=== PATIENT | female | born 1940 | race Caucasian/White ===

== ENCOUNTER 2019-05-17 22:18 | Emergency (ER) | payer OTHER ==
[~2019-05-17] VITALS: Ht 167.6 cm; Wt 88.5 kg
--- OUTSIDE RECORDS SUMMARY | ~2019-05-17 | XMS | Encounter Summary ---
Demographics + + + | Address | [address] | | | [place] [address] | + + + | Home Phone | | + + + | Preferred Language | Unknown | + + + | Marital Status | | + + + | Yazidi Affiliation | Unknown | + + + | Race | White | + + + | Ethnic Group | Not or | + + + Author + + + | Author | [facility] | + + + | Organization | [facility] | + + + | Address | Unknown | + + + | Phone | Unavailable | + + + Support + + +---------+ + | Name | Relationship | Address | Phone | + + +---------+ + | Alon Santiago | ECON | Unknown | | + + +---------+ + Care Team Providers + +------+ + | Care Hat Maker Name | Role | Phone | + +------+ + | Thee Boss MD | PCP | | + +------+ + Reason for Visit + + + | Reason | Comments | + + + | Medication Question | | + + + Encounter Details +--------+ + + + + | Date | Type | Department | Care Team | Description | +--------+ + + + + | 07/16/ | Telephone | Rheumatology at | Tavia Zuniga | Medication Question | | 2013 | | [facility] [address] | A, MANAGER POOL [address] | | | | | [address] | [address] | | | | | Physician's Francy | [place], [place] | | | | | [place], [place] | [address] | | | | | [address] | [phone] | | | | | [phone] | | | +--------+ + + + + Social History + +-------+ +--------+------+ | Tobacco Use | Types | Packs/Day | Years | Date | | | | | Used | | + +-------+ +--------+------+ | Never Smoker | | | | | + +-------+ +--------+------+ + + +---------+ + | Alcohol Use | Drinks/Week | oz/Week | Comments | + + +---------+ + | Not Asked | | | | + + +---------+ + + + + | Sex Assigned at | Date Recorded | | | | + + + | Not on file | | + + + + + + + | Job Start Date | Occupation | Industry | + + + + | Not on file | Not on file | Not on file | + + + + + + + + | Travel History | Travel Start | Travel End | + + + + + + | No recent travel history available. | + + documented as of this encounter Plan of Treatment Not on filedocumented as of this encounter Visit Diagnoses Not on filedocumented in this encounter"
--- OUTSIDE RECORDS SUMMARY | ~2019-05-17 | XMS | Encounter Summary ---
Demographics + + + | Address | [address] | | | [place] [address] | + + + | Home Phone | | + + + | Preferred Language | Unknown | + + + | Marital Status | | + + + | Holiness Affiliation | Unknown | + + + | Race | White | + + + | Ethnic Group | Not or | + + + Author + + + | Author | [facility] | + + + | Organization | [facility] | + + + | Address | Unknown | + + + | Phone | Unavailable | + + + Support + + +---------+ + | Name | Relationship | Address | Phone | + + +---------+ + | Alon Santiago | ECON | Unknown | | + + +---------+ + Care Team Providers + +------+ + | Care Piggyback Clerk Name | Role | Phone | + +------+ + | Thee Boss MD | PCP | | + +------+ + Encounter Details +--------+ + + + + | Date | Type | Department | Care Team | Description | +--------+ + + + + | 09/17/ | Document-Sc | UNKNOWN DEPARTMENT | Unknown . | | | 2014 | anned | [address] | | | | | | [address] | | | | | | [place], [place] | | | | | | [address] | | | +--------+ + + + [...]
--- OUTSIDE RECORDS SUMMARY | ~2019-05-17 | XMS | Clinical Summary ---
Demographics + + + | Address | [address] | | | [place] [address] | + + + | Home Phone | | + + + | Preferred Language | Unknown | + + + | Marital Status | | + + + | Gnosticism Affiliation | Unknown | + + + | Race | White | + + + | Ethnic Group | Not or | + + + Author + + + | Author | [facility] | + + + | Organization | [facility] | + + + | Address | Unknown | + + + | Phone | Unavailable | + + + Support + + +---------+ + | Name | Relationship | Address | Phone | + + +---------+ + | Alon Santiago | ECON | Unknown | | + + +---------+ + Care Team Providers + +------+ + | Care Qa Engineer Name | Role | Phone | + +------+ + | Nathan Luevano DO | PCP | | + +------+ + Source Comments [facility] Allergies + + + + + + | Active Allergy | Reactions | Severity | Noted | Comments | | | | | Date | | + + + + + + | Adhesive Tape | Rash | | 04/07/20 | | | | | | 13 | | + + + + + + | Valdecoxib | Dizziness | | 20 | | | | | | 13 | | + + + + + + | Diltiazem Hcl | Edema | | 04/07/20 | Ankle swelling | | | | | 13 | | + + + + + + | Citalopram | Nausea | | 04/07/20 | | | Hydrobromide | | | 13 | | + + + + + + | Codeine | Nausea | | 04/07/20 | | | | | | 13 | | + + + + + + | Duloxetine | Unknown | | 09/08/19 | Hot flashes | | | | | 15 | | + + + + + + | Hydromorphone | Nausea, Insomnia | High | 06/14/20 | | | | | | 15 | | + + + + + + | Isosorbide | Headache | | 04/07/20 | | | Mononitrate | | | 13 | | + + + + + + | Escitalopram Oxalate | Nausea | | 04/07/20 | | | | | | 13 | | + + + + + + | Morphine | Headache | High | 11/01/19 | | | | | | 07 | | + + + + + + | Esomeprazole | Nausea | | 04/07/20 | | | Magnesium | | | 13 | | + + + + + + | Oxycodone | Nausea | | 04/07/20 | | | | | | 13 | | + + + + + + | Tramadol | Nausea | | 11/16/19 | | | | | | 16 | | + + + + + + Medications + + + +---------+------+------+-------+ | Medication | Sig | Dispensed | Refills | Star | End | Statu | | | | | | t | Date | s | | | | | | Date | | | + + + +---------+------+------+-------+ | ranitidine | Take 150 mg by mouth | | 0 | | | Activ | | (ZANTAC) 150 mg Oral | as needed. | | | | | e | | tablet | | | | | | | + + + +---------+------+------+-------+ | cholecalciferol, | Take 5,000 Units by | | 0 | | | Activ | | Vitamin D3, 1,000 | mouth once daily in | | | | | e | | unit oral tablet | the evening. | | | | | | + + + +---------+------+------+-------+ | hydroxychloroquine | Take 1 tablet by | 180 | 1 | 04/0 | | Activ | | (PLAQUENIL) 200 mg | mouth two times | tablet | | 6/20 | | e | | oral tablet | daily. | | | 16 | | | + + + +---------+------+------+-------+ | diclofenac 1 % | Apply to affected | | 0 | | | Activ | | topical gel | area once daily. | | | | | e | + + + +---------+------+------+-------+ | | Take 1 tablet by | | 0 | | | Activ | | losartan-hydrochloro | mouth once daily. | | | | | e | | thiazide 100-12.5 mg | | | | | | | | oral tablet | | | | | | | + + + +---------+------+------+-------+ | methotrexate 2.5 | Take 2.5 mg by mouth | | 0 | | | Activ | | mg oral tablet | every seven days. | | | | | e | + + + +---------+------+------+-------+ | mirabegron | Take 50 mg by mouth | | 0 | | | Activ | | (MYRBETRIQ) 50 mg | once daily. | | | | | e | | oral tablet extended | | | | | | | | release 24 hr | | | | | | | + + + +---------+------+------+-------+ | naltrexone 4.5 mg | Take 4.5 mg by mouth | | 0 | | | Activ | | capsule (external | once daily at | | | | | e | | compound)Indications | bedtime. Compounded | | | | | | | : fibromyalgia | medication | | | | | | | | Indications: | | | | | | | | disorder | | | | | | | | characterized by | | | | | | | | stiff, tender & | | | | | | | | painful muscles | | | | | | + + + +---------+------+------+-------+ | trospium 20 mg | Take 20 mg by mouth | | 0 | | | Activ | | oral tablet | two times daily. | | | | | e | + + + +---------+------+------+-------+ | | Take by mouth once | | 0 | | | Activ | | acetaminophen/diphen | daily at bedtime. | | | | | e | | hydramine (TYLENOL | | | | | | | | PM EXTRA STRENGTH | | | | | | | | ORAL) | | | | | | | + + + +---------+------+------+-------+ | fexofenadine 180 | Take 180 mg by mouth | | 0 | | | Activ | | mg oral tablet | once daily at | | | | | e | | | bedtime. | | | | | | + + + +---------+------+------+-------+ | Bifidobacterium | Take by mouth once | | 0 | | | Activ | | infantis (ALIGN | daily in the | | | | | e | | ORAL)Indications: | morning. | | | | | | | probiotic | Indications: | | | | | | | | probiotic | | | | | | + + + +---------+------+------+-------+ | cyanocobalamin | Take 1,000 mcg by | | 0 | | | Activ | | (VITAMIN B-12) 1,000 | mouth once daily in | | | | | e | | mcg oral tablet | the morning. | | | | | | + + + +---------+------+------+-------+ | emollient | Apply to affected | | 0 | | | Activ | | combination no.77 | area. Indications: | | | | | e | | (DERMEND | twice weekly | | | | | | | TOP)Indications: | | | | | | | | twice weekly | | | | | | | + + + +---------+------+------+-------+ | soy isofla/blk | Take by mouth once | | 0 | | | Activ | | cohosh/mag bark | daily. | | | | | e | | (ESTROVEN ORAL) | | | | | | | + + + +---------+------+------+-------+ | folic acid 0.4 mg | Take 400 mcg by | | 0 | | | Activ | | oral tablet | mouth once daily. | | | | | e | + + + +---------+------+------+-------+ | LYSINE ORAL | Take 50 mg by mouth | | 0 | | | Activ | | | once daily in the | | | | | e | | | morning. | | | | | | + + + +---------+------+------+-------+ | magnesium citrate | Take 1 tablet by | | 0 | | | Activ | | 100 mg oral tablet | mouth once daily in | | | | | e | | | the morning. | | | | | | + + + +---------+------+------+-------+ | miconazole | Apply to affected | | 0 | | | Activ | | (ZEASORB AF) 2 % | area two times | | | | | e | | topical powder | daily. | | | | | | + + + +---------+------+------+-------+ | MEDICATION | Indications: | | 0 | | | Activ | | HELPIndications: | theraworx foam | | | | | e | | theraworx foam | spray- leg cramps | | | | | | | spray- leg cramps | | | | | | | + + + +---------+------+------+-------+ Active Problems + + + | Problem | Noted Date | + + + | Cervical spondylosis with radiculopathy | 03/11/2019 | + + + | DDD (degenerative disc disease), cervical | 03/11/2019 | + + + | Foraminal stenosis of cervical region | 03/11/2019 | + + + | Rheumatoid arthritis | 07/09/2013 | + + + + + | Overview: ICD10 | + + + + + | Fibromyalgia | 04/07/2013 | + + + Encounters +--------+ + + + + | Date | Type | Specialty | Care Team | Description | +--------+ + + + + | 04/23/ | Document-Sc | Non [facility] EP[facility] | Aristides Longo, | | | 2018 | anned | Department | MD | | +--------+ + + + + | 04/18/ | MyChart | Neurological Surgery | Agusto Pereira MD | RE: Letter sent to | 2018 | Encounter | | | Dr. Pereira's office | | | | | | recently | +--------+ + + + + | 04/09/ | [facility] | Neurological Surgery | Agusto Pereira MD | Authorization of | | 2018 | Encounter | | | Services notice from | | | | | | [employer] 03/21/19 | +--------+ + + + + | 04/09/ | [facility] | Neurological Surgery | Agusto Pereira MD | Upcoming Tests and | | 2018 | Encounter | | | Procedures | +--------+ + + + + | 03/11/ | Office | Neurological Surgery | Agusto Pereira MD | Cervical spondylosis | | 2018 | Visit | | | with radiculopathy | | | | | | (Primary Dx); | | | | | | Cervical | | | | | | radiculopathy; | | | | | | Cervical | | | | | | subluxation, initial | | | | | | encounter; DDD | | | | | | (degenerative disc | | | | | | disease), cervical; | | | | | | Foraminal stenosis | | | | | | of cervical region; | | | | | | S/P lumbar fusion; | | | | | | SOB (shortness of | | | | | | breath) | +--------+ + + + + | 03/11/ | Travel | | | | | 2018 | | | | | +--------+ + + + + from Last 3 Months Immunizations + + + + | Name | Administration Dates | Next Due | + + + + | Influenza, | 04/16/2013 | | | injectable, | | | | quadrivalent, | | | | preservative free | | | | (IIV4) | | | + + + + Family History + + +------+ + | Medical History | Relation | Name | Comments | + + +------+ + | Additional Family | Father | | Parkinson's | | History | | | | + + +------+ + | Heart Disease | Mother | | | + + +------+ + | Hypertension | Mother | | | + + +------+ + | Stroke | Mother | | | + + +------+ + | Alcohol abuse | Sister | | | + + +------+ + | Arthritis | Sister | | | + + +------+ + | Hypertension | Sister | | | + + +------+ + + +------+--------+ + | Relation | Name | Status | Comments | + +------+--------+ + | Father | | | | + +------+--------+ + | Mother | | | | + +------+--------+ + | Sister | | | | + +------+--------+ + Social History + +-------+ +--------+------+ | Tobacco Use | Types | Packs/Day | Years | Date | | | | | Used | | + +-------+ +--------+------+ | Never Smoker | | | | | + +-------+ +--------+------+ + +---+---+---+ | Smokeless Tobacco: | | | | | Never Used | | | | + +---+---+---+ + + +---------+ + | Alcohol Use | Drinks/Week | oz/Week | Comments | + + +---------+ + | No | 0 Standard drinks | 0.0 | occasionally | | | or equivalent | | | + + +---------+ + [...] recent travel history available. | + + Last Filed Vital Signs + + + + + | Vital Sign | Reading | Time Taken | Comments | + + + + + | Blood Pressure | 162/79 | 03/11/2019 11:06 AM | | | | | PDT | | + + + + + | Pulse | 75 | 03/11/2019 11:06 AM | | | | | PDT | | + + + + + | Temperature | 36.4 C (97.6 F) | 03/11/2019 11:06 AM | | | | | PDT | | + + + + + | Respiratory Rate | 14 | 06/14/2015 1:05 PM | | | | | PST | | + + + + + | Oxygen Saturation | 94% | 03/11/2019 11:06 AM | | | | | PDT | | + + + + + | Inhaled Oxygen | - | - | | | Concentration | | | | + + + + + | Weight | 78 kg (171 lb 15.3 | 03/11/2019 11:06 AM | | | | oz) | PDT | | + + + + + | Height | 167.6 cm (5' 6") | 03/11/2019 11:06 AM | | | | | PDT | | + + + + + | Body Mass Index | 27.75 | 03/11/2019 11:06 AM | | | | | PDT | | + + + + + Plan of Treatment + + + + + | Health Maintenance | Due Date | Last Done | Comments | + + + + + | Pneumococcal | | 05/10/2015 | | | vaccination (2 of 2 | 5 | | | | - PPSV23) | | | | + + + + + | Influenza (Flu) | Completed | 03/27/2019, 03/18/2018, | | | vaccination: MyChart | | 04/06/2017, Additional history | | | opt out | | exists | | + + + + + Procedures + +--------+ + + + | Procedure Name | Priori | Date/Time | Associated Diagnosis | Comments | | | ty | | | | + +--------+ + + + | OUTSIDE RADIOLOGY - | | 04/23/2019 | | Results for this | | MRI | | 12:00 AM | | procedure are in the | | | | PDT | | results section. | + +--------+ + + + from Last 3 Months Results OUTSIDE RADIOLOGY - MRI (04/23/2019 12:00 AM PDT) + + + | Narrative | Performed At | + + + | | | + + + from Last 3 Months Insurance + +--------+ +--------+ + +--------+ | Payer | Benefi | Subscriber | Effect | Phone | Address | Type | | | t Plan | ID | la nena | | | | | | / | | Dates | | | | | | Group | | | | | | + +--------+ +--------+ + +--------+ | [employer]ARE | [employer] | [id number] | 06/25/19 | [phone] | [address] | Medica | | | MEDICA | | 19-Pre | 6 | [id number] | re | | | RE PPO | | sent | | [place], | | | | | | | | [place] | | | | | | | | [phone] | | + +--------+ +--------+ + +--------+ | [employer] | [employer] | [id number] | 06/25/19 | [phone] | [address] | Medica | | | MEDICA | | 14-Pre | 6 | [id number] | re | | | RE PPO | | sent | | [place], | | | | | | | | [place] | | | | | | | | [address] | | + +--------+ +--------+ + +--------+ + +--------+ +--------+ + + | Guarantor Name | Accoun | Relation to | Date | Phone | Billing Address | | | t Type | Patient | of | | | | | | | | | | + +--------+ +--------+ + + | Ashly Santiago | Person | Self | [birth year] | [address] | | | al/Fam | | 1940 | [phone] | [place] | | | [place] | | | [address] (Home) | [phone] | + +--------+ +--------+ + + | Ashly Santiago | Person | Self | [birth year] | [address] | | | al/Ji | | 1940 | [phone] | [place] | | | [place] | | | [address] ([place]) | [phone] | + +--------+ +--------+ + +
--- OUTSIDE RECORDS SUMMARY | ~2019-05-17 | XMS | Encounter Summary ---
Demographics + + + | Address | [address] | | | [place] [address] | + + + | Home Phone | | + + + | Preferred Language | Unknown | + + + | Marital Status | | + + + | Tenriism Affiliation | [id number] | + + + | Race | Unknown | + + + | Ethnic Group | Unknown | + + + Author + + + | Author | [facility] | | | and [place] | + + + | Organization | [facility] | | | and [place] | + + + | Address | Unknown | + + + | Phone | Unavailable | + + + Support + + + + + | Name | Relationship | Address | Phone | + + + + + | Alon Santiago | KATERIN | [address] | | | | | [place], [place] | | | | | [address] | | + + + + + | Helena Doherty | ECON | [place], | | | | | [place] [address] | | + + + + + Care Team Providers + +------+ + | Care English Professor Name | Role | Phone | + +------+ + PCP | Unavailable | + +------+ + Encounter Details +--------+ + + + + | Date | Type | Department | Care Team | Description | +--------+ + + + + | 03/07/ | Abstract | [facility] | [facility] | | | 2011 | | Conversion Location | SR | | | | | [phone] | | | +--------+ + + + + Social History + +-------+ +--------+------+ | Tobacco Use | Types | Packs/Day | Years | Date | | | | | Used | | + +-------+ +--------+------+ | Never Assessed | | | | | + +-------+ +--------+------+ + + + | Sex Assigned at [...] + + documented as of this encounter Last Filed Vital Signs + + + + + | Vital Sign | Reading | Time Taken | Comments | + + + + + | Blood Pressure | - | - | | + + + + + | Pulse | - | - | | + + + + + | Temperature | - | - | | + + + + + | Respiratory Rate | - | - | | + + + + + | Oxygen Saturation | - | - | | + + + + + | Inhaled Oxygen | - | - | | | Concentration | | | | + + + + + | Weight | 86.2 kg (190 lb) | 10/24/2011 12:00 AM | | | | | PDT | | + + + + + | Height | 165.1 cm (5' 5") | 10/24/2011 12:00 AM | | | | | PDT | | + + + + + | Body Mass Index | 31.62 | 10/24/2011 12:00 AM | | | | | PDT | | + + + + + documented in this encounter Plan of Treatment +--------+ + + + + | Date | Type | Specialty | Care Team | Description | +--------+ + + + + | 05/19/ | Hospital | Radiology | Pineda, Dennys, PA-C | | | 2019 | Encounter | | [address] | | | | | | [address] | | | | | | [place] [address] | | | | | | [phone] | | | | | | | | | | | | [place] | | +--------+ + + + + documented as of this encounter Procedures + +--------+ + + + | Procedure Name | Priori | Date/Time | Associated Diagnosis | Comments | | | ty | | | | + +--------+ + + + | ARSH SCREENING | Routin | 03/04/2009 | | Results for this | | BILATERAL | e | 12:00 AM | | procedure are in the | | | | PDT | | results section. | + +--------+ + + + | PAP SMEAR | Routin | 06/25/2007 | | Results for this | | | e | 12:00 AM | | procedure are in the | | | | PST | | results section. | + +--------+ + + + | ENDOSCOPY, COLON, | Routin | 06/25/2003 | | Results for this | | DIAGNOSTIC | e | 12:00 AM | | procedure are in the | | | | PST | | results section. | + +--------+ + + + documented in this encounter Results ARSH Screening Bilateral (03/04/2009 12:00 AM PDT) + + | Specimen | + + | | + + + + + | Narrative | Performed At | + + + | | | + + + Pap Smear (06/25/2007 12:00 AM PST) + + | Specimen | + + | | + + + + + | Narrative | Performed At | + + + | | | + + + ENDOSCOPY, COLON, DIAGNOSTIC (06/25/2003 12:00 AM PST) + + | Specimen | + + | | + + + + + | Narrative | Performed At | + + + | | | + + + documented in this encounter Visit Diagnoses Not on filedocumented in this encounter
--- OUTSIDE RECORDS SUMMARY | ~2019-05-17 | XMS | Encounter Summary ---
Demographics + + + | Address | [address] | | | [place] [address] | + + + | Home Phone | | + + + | Preferred Language | Unknown | + + + | Marital Status | | + + + | Worship Affiliation | Unknown | + + + | Race | White | + + + | Ethnic Group | Not or | + + + Author + + + | Author | [facility] | + + + | Organization | [facility] | + + + | Address | Unknown | + + + | Phone | Unavailable | + + + Support + + +---------+ + | Name | Relationship | Address | Phone | + + +---------+ + | Alon Santiago | ECON | Unknown | | + + +---------+ + Care Team Providers + +------+ + | Care Straight Ruling Machine Operator Name | Role | Phone | + [...] | +--------+ + + + + | 08/01/ | Telephone | Rheumatology at | Tavia Zuniga | Medication Question | | 2013 | | Palmira Donato, PAPER PRODUCTION ENGINEER [address] [facility] | | | | | [address] | [address] | | | | | Amara Chatman Mailcode: | [place], [place] | | | | | [address] Physician's | [address] | | | | | [address], [address] | [phone] | | | | | [place], [place] | | | | | | [address] | | | | | | [phone] | | | +--------+ + + + [...]
--- OUTSIDE RECORDS SUMMARY | ~2019-05-17 | XMS | Encounter Summary ---
Demographics + + + | Address | [address] [facility] [address] | | | [place] [address] | + + + | Home Phone | | + + + | Preferred Language | Unknown | + + + | Marital Status | | + + + | Amish Affiliation | 1077 | + + + | Race | Unknown | + + + | Ethnic Group | Unknown | + + + Author + + + | Author | [facility] | | | and [place] | + + + | Organization | [facility] | | | and [place] | + + + | Address | Unknown | + + + | Phone | Unavailable | + + + Support + + + + + | Name | Relationship | Address | Phone | + + + + + | Alon Santiago | KAETRIN | [address] | | | | | [place], [place] | | | | | [address] | | + + + + + | Helena Doherty | ECON | [place], | | | | | [place] [address] | | + + + + + Care Team Providers + +------+ + | Care Space Officer Name | Role | Phone | + +------+ + | Nathan Luevano DO | PCP | | + +------+ + Encounter Details +--------+ + + + + | Date | Type | Department | Care Team | Description | +--------+ + + + + | 10/24/ | Orders Only | [facility] | Conversion | | | 2019 | | [facility] | Transaction, | | | | | [address] [place] | Provider Unknown | | | | | [address] [place], [place] | | | | | | [address] | (Fax) | | | | | [phone] | | | +--------+ + + + [...] Comments | + + +---------+ + | Yes | 0 Standard drinks | 0.0 | once every couple of | | | or equivalent | | months | + + +---------+ + + + [...] as of this encounter Plan of Treatment +--------+ + + + + | Date | Type | Specialty | Care Team | Description | +--------+ + + + + | 05/19/ | Hospital | Radiology | Dennys Pineda PA-C | | | 2018 | Encounter | | [address] | | | | | | [address] | | | | | | [place] [address] | | | | | | [phone] | | | | | | | | | | | | Slate Handler, [place] | | +--------+ + + + + documented as of this encounter Procedures + +--------+ + + + | Procedure Name | Priori | Date/Time | Associated Diagnosis | Comments | | | ty | | | | + +--------+ + + + | EXTERNAL LAB: CBC | Routin | 10/24/2018 | | Results for this | | | e | 12:00 AM | | procedure are in the | | | | PDT | | results section. | + +--------+ + + + | LIPID PANEL | Routin | 10/24/2018 | | Results for this | | | e | 12:00 AM | | procedure are in the | | | | PDT | | results section. | + +--------+ + + + | VITAMIN D, | Routin | 10/24/2018 | | Results for this | | DEFICIENCY SCREEN | e | 12:00 AM | | procedure are in the | | (25-HYDROXY) | | PDT | | results section. | + +--------+ + + + | URINALYSIS, | Routin | 10/24/2018 | | | | MICROSCOPIC ONLY | e | 12:00 AM | | | | | | PDT | | | + +--------+ + + + | TSH | Routin | 10/24/2018 | | Results for this | | | e | 12:00 AM | | procedure are in the | | | | PDT | | results section. | + +--------+ + + + | COMPREHENSIVE | Routin | 10/24/2018 | | Results for this | | METABOLIC PANEL | e | 12:00 AM | | procedure are in the | | | | PDT | | results section. | + +--------+ + + + documented in this encounter Results Vitamin D, Deficiency Screen (25-Hydroxy) (10/24/2018 12:00 AM PDT) + +-------+ + + + | Component | Value | Ref Range | Performed | Pathologist | | | | | At | Signature | + +-------+ + + + | Vit D, | 30 | 30 - 100 | EXTERNAL | | | 25-Hydroxy | | | LAB | | + +-------+ + + + + + | Specimen | + + | Blood specimen | | (specimen) | + + + +---------+ + + | Performing | Address | City/State/Zipcode | Phone Number | | Organization | | | | + +---------+ + + | EXTERNAL LAB | | | | + +---------+ + + Urinalysis, Microscopic Only (10/24/2018 12:00 AM PDT) + +-------+ + + + | Component | Value | Ref Range | Performed | Pathologist | | | | | At | Signature | + +-------+ + + + | Color | | | EXTERNAL | | | | | | LAB | | + +-------+ + + + | Clarity | | | EXTERNAL | | | | | | LAB | | + +-------+ + + + | Specific | | | EXTERNAL | | | [place] | | | LAB | | + +-------+ + + + | Leukocyte | | | EXTERNAL | | | Esterase, | | | LAB | | | Urine | | | | | + +-------+ + + + | Nitrite, | | | EXTERNAL | | | Urine | | | LAB | | + +-------+ + + + | Urobilinoge | | | EXTERNAL | | | n, Urine | | | LAB | | + +-------+ + + + | Protein, | | | EXTERNAL | | | Urine | | | LAB | | + +-------+ + + + | pH, Urine | | | EXTERNAL | | | | | | LAB | | + +-------+ + + + | Blood, | | | EXTERNAL | | | Urine | | | LAB | | + +-------+ + + + | Ketones | | | EXTERNAL | | | | | | LAB | | + +-------+ + + + | Bilirubin, | | | EXTERNAL | | | Urine | | | LAB | | + +-------+ + + + | Glucose, | | | EXTERNAL | | | Urine | | | LAB | | + +-------+ + + + + + | Specimen | + + | Urine specimen | | (specimen) | + + + +---------+ + + | Performing | Address | City/State/Zipcode | Phone Number | | Organization | | | | + +---------+ + + | EXTERNAL LAB | | | | + +---------+ + + External Lab: CBC (10/24/2018 12:00 AM PDT) + + + + + + | Component | Value | Ref Range | Performed | Pathologist | | | | | At | Signature | + + + + + + | WBC | 7.3 | 4.5 - 11.0 10 | EXTERNAL | | | | | | LAB | | + + + + + + | RED CELL | 3.70 (A) | 3.8 - 5.1 10 | EXTERNAL | | | COUNT | | | LAB | | + + + + + + | Hgb | 12.0 | 12.0 - 16.0 | EXTERNAL | | | | | g/dL | LAB | | + + + + + + | Hematocrit, | 36.2 | 35 - 45 % | EXTERNAL | | | POC | | | LAB | | + + + + + + | MCV | 97.8 | 81 - 99 fL | EXTERNAL | | | | | | LAB | | + + + + + + | MCH | 32 | 27 - 33 pg | EXTERNAL | | | | | | LAB | | + + + + + + | MCHC | 33 | 30 - 36 g/dL | EXTERNAL | | | | | | LAB | | + + + + + + | Platelet | 249 | 140 - 440 K/ L | EXTERNAL | | | Count | | | LAB | | | Plasma | | | | | + + + + + + | RDW-CV | 14.0 | 10.5 - 15.0 % | EXTERNAL | | | | | | LAB | | + + + + + + | MPV | | fL | EXTERNAL | | | | | | LAB | | + + + + + + | Differentia | | | EXTERNAL | | | l Type | | | LAB | | + + + + + + | % Segmented | 72.9 | 39 - 80 % | EXTERNAL | | | | | | LAB | | | Neutrophils | | | | | + + + + + + | % | 16.7 (A) | 24 - 44 % | EXTERNAL | | | Lymphocytes | | | LAB | | + + + + + + | % Monocytes | 8.8 | 0 - 12 % | EXTERNAL | | | | | | LAB | | + + + + + + | % | 0.7 | 0 - 6 % | EXTERNAL | | | Eosinophils | | | LAB | | + + + + + + | % Basophils | 0.9 | 0 - 2 % | EXTERNAL | | | | | | LAB | | + + + + + + | Absolute | | / L | EXTERNAL | | | Segmented | | | LAB | | | Neutrophils | | | | | + + + + + + | Absolute | | / L | EXTERNAL | | | Lymphocytes | | | LAB | | + + + + + + | Absolute | | / L | EXTERNAL | | | Monocytes | | | LAB | | + + + + + + | Absolute | | / L | EXTERNAL | | | Eosinophils | | | LAB | | + + + + + + | Absolute | | / L | EXTERNAL | | | Basophils | | | LAB | | + + + + + + + + | Specimen | + + | Blood specimen | | (specimen) | + + + +---------+ + + | Performing | Address | City/State/Zipcode | Phone Number | | Organization | | | | + +---------+ + + | EXTERNAL LAB | | | | + +---------+ + + TSH (10/24/2018 12:00 AM PDT) + +-------+ + + + | Component | Value | Ref Range | Performed | Pathologist | | | | | At | Signature | + +-------+ + + + | TSI | 1.99 | 0.270 - 4.20 | EXTERNAL | | | | | uIU/mL | LAB | | + +-------+ + + + + + | Specimen | + + | Blood specimen | | (specimen) | + + + +---------+ + + | Performing | Address | City/State/Zipcode | Phone Number | | Organization | | | | + +---------+ + + | EXTERNAL LAB | | | | + +---------+ + + Lipid Panel (10/24/2018 12:00 AM PDT) + +---------+ + + + | Component | Value | Ref Range | Performed | Pathologist | | | | | At | Signature | + +---------+ + + + | Cholesterol | 201 (A) | 200 mg/dL | EXTERNAL | | | | | | LAB | | + +---------+ + + + | Triglycerid | 136 | 30 - 150 mg/dL | EXTERNAL | | | es | | | LAB | | + +---------+ + + + | HDL | 49 (A) | 40 mg/dl | EXTERNAL | | | | | | LAB | | + +---------+ + + + | LDL | 125 (A) | 100 mg/dL | EXTERNAL | | | Cholesterol | | | LAB | | | , | | | | | | Calculated, | | | | | | External | | | | | + +---------+ + + + | LDl/HDL | | | EXTERNAL | | | Ratio | | | LAB | | + +---------+ + + + | Chol/HDL | 4.1 | 4.44 | EXTERNAL | | | Ratio | | | LAB | | + +---------+ + + + | VLDL | 27 | 4 - 40 mg/dL | EXTERNAL | | | | | | LAB | | + +---------+ + + + | Non HDL | 152 (A) | 130 | EXTERNAL | | | Chol. | | | LAB | | | (LDL+VLDL) | | | | | + +---------+ + + + + + | Specimen | + + | Blood specimen | | (specimen) | + + + +---------+ + + | Performing | Address | City/State/Zipcode | Phone Number | | Organization | | | | + +---------+ + + | EXTERNAL LAB | | | | + +---------+ + + Comprehensive Metabolic Panel (10/24/2018 12:00 AM PDT) + +---------+ + + + | Component | Value | Ref Range | Performed | Pathologist | | | | | At | Signature | + +---------+ + + + | Glucose, | 103 (A) | 70 - 100 mg/dL | EXTERNAL | | | Fasting | | | LAB | | + +---------+ + + + | BUN | 30 (A) | 6 - 23 mg/dL | EXTERNAL | | | | | | LAB | | + +---------+ + + + | Creatinine | 1.15 | 0.70 - 1.18 | EXTERNAL | | | | | mg/dL | LAB | | + +---------+ + + + | BUN/Creatin | 26.1 | 6.0 - 28.6 | EXTERNAL | | | ine Ratio | | | LAB | | + +---------+ + + + | Calcium | 9.1 | 8.5 - 10.3 | EXTERNAL | | | | | mg/dL | LAB | | + +---------+ + + + | Protein, | 6.6 | 6.0 - 8.3 g/dL | EXTERNAL | | | Total | | | LAB | | + +---------+ + + + | Albumin | 4.2 | 3.5 - 5.0 | EXTERNAL | | | | | | LAB | | + +---------+ + + + | Globulin | 2.4 | 1.8 - 3.5 | EXTERNAL | | | | | | LAB | | + +---------+ + + + | A/G Ratio | | | EXTERNAL | | | | | | LAB | | + +---------+ + + + | Bilirubin | 0.4 | 0.0 - 1.2 mg/dL | EXTERNAL | | | Total | | | LAB | | + +---------+ + + + | ALP, | 70 | 31 - 130 | EXTERNAL | | | External | | | LAB | | + +---------+ + + + | ALT | 15 | 7 - 52 U/L | EXTERNAL | | | | | | LAB | | + +---------+ + + + | AST | 15 | 13 - 39 | EXTERNAL | | | | | | LAB | | + +---------+ + + + | Na | 140 | 132 - 143 | EXTERNAL | | | | | mmol/L | LAB | | + +---------+ + + + | K | 3.9 | 3.6 - 5.1 | EXTERNAL | | | | | mmol/L | LAB | | + +---------+ + + + | Cl | 105 | 95 - 112 mmol/L | EXTERNAL | | | | | | LAB | | + +---------+ + + + | CO2 | 27 | 19 - 31 mmol/L | EXTERNAL | | | | | | LAB | | + +---------+ + + + | Anion Gap | 11.9 | 7 - 21 mmol/L | EXTERNAL | | | | | | LAB | | + +---------+ + + + | Estimated | 46 (A) | 60 - 140 mg/dL | EXTERNAL | | | GFR | | | LAB | | + +---------+ + + + + + | Specimen | + + | Blood specimen | | (specimen) | + + + +---------+ + + | Performing | Address | City/State/Zipcode | Phone Number | | Organization | | | | + +---------+ + + | EXTERNAL LAB | | | | + +---------+ + + documented in this encounter Visit Diagnoses Not on filedocumented in this encounter"
--- OUTSIDE RECORDS SUMMARY | ~2019-05-17 | XMS | Encounter Summary ---
Demographics + + + | Address | [address] [facility] | | | [place] [address] | + + + | Home Phone | | + + + | Preferred Language | Unknown | + + + | Marital Status | | + + + | Mormon Affiliation | Unknown | + + + | Race | White | + + + | Ethnic Group | Not or | + + + Author + + + | Author | [facility] | + + + | Organization | [facility] | + + + | Address | Unknown | + + + | Phone | Unavailable | + + + Support + + +---------+ + | Name | Relationship | Address | Phone | + + +---------+ + | Alon Santiago | ECON | Unknown | | + + +---------+ + Care Team Providers + +------+ + | Care Senior Systems Software Engineer Name | Role | Phone | + +------+ + | Nathan Luevano | PCP | | + +------+ + Encounter Details +--------+ + + + + | Date | Type | Department | Care Team | Description | +--------+ + + + + | 03/30/ | Document-Sc | UNKNOWN DEPARTMENT | Unknown . | | | 2017 | anned | [address] | | | | | | [address] | | | | | | [place], [place] | | | | | | [address] | | | +--------+ + + + [...]
--- OUTSIDE RECORDS SUMMARY | ~2019-05-17 | XMS | Encounter Summary ---
Demographics + + + | Address | [address] [facility] [address] [facility] | | | [place] [address] | + + + | Home Phone | | + + + | Preferred Language | Unknown | + + + | Marital Status | | + + + | Mosque Affiliation | Unknown | + + + | Race | White | + + + | Ethnic Group | Not or | + + + Author + + + | Author | [facility] | + + + | Organization | [facility] | + + + | Address | Unknown | + + + | Phone | Unavailable | + + + Support + + +---------+ + | Name | Relationship | Address | Phone | + + +---------+ + | Alon Santiago | ECON | Unknown | | + + +---------+ + Care Team Providers + +------+ + | Care Truck Spotter Name | Role | Phone | + +------+ + | Thee Boss MD | PCP | | + +------+ + Encounter Details +--------+ + + + + | Date | Type | Department | Care Team | Description | +--------+ + + + + | 06/05/ | MyChart | Rheumatology at | Tavia Zuniga | RE: Butran Patches | | 2012 | Encounter | Physicians Francy Donato, LOG POND WORKER [address] | | | | | [address] | | | | | [place] Mailcode: | [place], [place] | | | | | [address] Physician's | [address] | | | | | Francy, [facility] Floor | [phone] | | | | | [place], [place] | | | | | | [address] | | | | | | [phone] | | | +--------+ + + + [...]
--- OUTSIDE RECORDS SUMMARY | ~2019-05-17 | XMS | Encounter Summary ---
Demographics + + + | Address | [address] [address] | | | [place] [address] | + + + | Home Phone | | + + + | Preferred Language | Unknown | + + + | Marital Status | | + + + | Jewish Affiliation | 1077 | + + + | Race | Unknown | + + + | Ethnic Group | Unknown | + + + Author + + + | Author | [facility] | | | and [place] | + + + | Organization | [facility] | | | and [place] | + + + | Address | Unknown | + + + | Phone | Unavailable | + + + Support + + + + + | Name | Relationship | Address | Phone | + + + + + | Alon Santiago | KATERIN | [address] | | | | | [place], [place] | | | | | [address] | | + + + + + | Helena Doherty | ECON | [place], | | | | | [place] [address] | | + + + + + Care Team Providers + +------+ + | Care Night Court Magistrate Name | Role | Phone | + +------+ + | Sophia Bush PA-C | PCP | | + +------+ + Encounter Details +--------+ + + + + | Date | Type | Department | Care Team | Description | +--------+ + + + + | 08/29/ | Abstract | [facility] | [place], | | | 2016 | | PHYSIATRY [address] | FABIAN [address] | | | | | [place], | [place], | | | | | [place] [address] | [place] [address] | | | | | [phone] | [phone] | | | | | | | | +--------+ + [...] | 0 Standard drinks | 0.0 | RARE | | | or equivalent | | [...] | Dennys Pineda PA-C | | | 2019 | Encounter | | [address] | | | | | | [address] | | | | | | [place] [address] | | | | | | [phone] | | | | | | | | | | | | Reservations SpecialistNaomi | | +--------+ + + + + documented as of this encounter Visit Diagnoses Not on filedocumented in this encounter"
--- OUTSIDE RECORDS SUMMARY | ~2019-05-17 | XMS | Encounter Summary ---
Demographics + + + | Address | [address] | | | [place] [address] | + + + | Home Phone | | + + + | Preferred Language | Unknown | + + + | Marital Status | | + + + | Denominational Affiliation | Unknown | + + + | Race | White | + + + | Ethnic Group | Not or | + + + Author + + + | Author | [facility] | + + + | Organization | [facility] | + + + | Address | Unknown | + + + | Phone | Unavailable | + + + Support + + +---------+ + | Name | Relationship | Address | Phone | + + +---------+ + | Alon Santiago | ECON | Unknown | | + + +---------+ + Care Team Providers + +------+ + | Care Judicial Administrative Assistant Name | Role | Phone | + +------+ + | Thee Boss MD | PCP | | + +------+ + Encounter Details +--------+ + + + + | Date | Type | Department | Care Team | Description | +--------+ + + + + | 09/15/ | MyChart | Rheumatology at | Tavia Zuniga | RE: Butran Patches | | 2013 | Encounter | Physicians KALA Fung [address] | and [employer] | | | | [address] | [address] | | | | | [place] Mailcode: | [place], [place] | | | | | [address] Physician's | [address] | | | | | [address], [address] | [phone] | | | | | [place], [place] | | | | | | [address] | | | | | | [phone] | | | +--------+ + + + [...]
--- OUTSIDE RECORDS SUMMARY | ~2019-05-17 | XMS | Encounter Summary ---
Demographics + + + | Address | [address] [facility] [address] [facility] | | | [place] [address] | + + + | Home Phone | | + + + | Preferred Language | Unknown | + + + | Marital Status | | + + + | Faith Affiliation | Unknown | + + + | Race | White | + + + | Ethnic Group | Not or | + + + Author + + + | Author | [facility] | + + + | Organization | [facility] | + + + | Address | Unknown | + + + | Phone | Unavailable | + + + Support + + +---------+ + | Name | Relationship | Address | Phone | + + +---------+ + | Alon Santiago | ECON | Unknown | | + + +---------+ + Care Team Providers + +------+ + | Care Radius Corner Machine Operator Name | Role | Phone | + +------+ + | Thee Boss MD | PCP | | + +------+ + Encounter Details +--------+ + + + + | Date | Type | Department | Care Team | Description | +--------+ + + + + | 10/01/ | MyChart | Rheumatology at | Rosas Lucia MD | RE: Dr Thee Boss | | 2013 | Encounter | Physicians [place] | [address] [facility] | | | | | [address] | [address] | | | | | [address] Mailcode: | [place] [address] | | | | | [address] Physician's | [phone] | | | | | [address], [address] | | | | | | [place] | | | | | | [address] | | | | | | [phone] | | | +--------+ + + + [...]
--- OUTSIDE RECORDS SUMMARY | ~2019-05-17 | XMS | Encounter Summary ---
Demographics + + + | Address | [address] | | | [place] [address] | + + + | Home Phone | | + + + | Preferred Language | Unknown | + + + | Marital Status | | + + + | Latter Day Affiliation | 1077 | + + + | Race | Unknown | + + + | Ethnic Group | Unknown | + + + Author + + + | Author | [facility] | | | and zAana | + + + | Organization | [facility] | | | and Azana | [...] [place], [place] | | | | | [address] | | + + + + + | Helena Doherty | ECON | [place], | | | | | [place] [address] | | + + + + + Care Team Providers + +------+ + | Care Youth Manager Name | Role | Phone | + +------+ + | Nathan Luevano DO | PCP | | + +------+ + Reason for Visit Auth/Cert +--------+--------+ + + + + | Status | Reason | Specialty | Diagnoses / | Referred By | Referred To | | | | | Procedures | Contact | Contact | +--------+--------+ + + + + | | | | Diagnoses | | | | | | | Lumbar | | | | | | | radiculopath | | | | | | | y (M54.16), | | | | | | | 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 | | | | | | | region (HCC) | | | | | | | (M46.96), | | | | | | | Chronic low | | | | | | | back pain | | | | | | | with | | | | | | | sciatica, | | | | | | | sciatica | | | | | | | laterality | | | | | | | unspecified, | | | | | | | unspecified | | | | | | | back pain | | | | | | | laterality | | | | | | | (M54.40, | | | | | | | G89.29), | | | | | | | Degenerative | | | | | | | disc | | | | | | | disease, | | | | | | | lumbar | | | | | | | (M51.36), | | | | | | | Sacroiliitis | | | | | | | (HCC) | | | | | | | (M46.1), | | | | | | | 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 | | | | | | | (M99.83), | | | | | | | Scoliosis of | | | | | | | lumbar | | | | | | | spine, | | | | | | | unspecified | | | | | | | scoliosis | | | | | | | type (M41.9) | | | | | | | Procedures | | | | | | | [place] | | | | | | | ARTHDSIS | | | | | | | POST/POSTERO | | | | | | | LATRL/POSTIN | | | | | | | TERBODY | | | | | | | LUMBAR [place] | | | | | | | SPINE | | | | | | | FUSN,POST | | | | | | | TECH,EA | | | | | | | ADDNL SGMT | | | | | | | [place] LUMBAR | | | | | | | SPINE | | | | | | | FUSION,ANTER | | | | | | | APPRCH | | | | | | | POSTERIOR | | | | | | | SEGMENTAL | | | | | | | INSTRUMENTAT | | | | | | | ION 3-6 VRT | | | | | | | SEG | | | | | | | LAMINEC/FACE | | | | | | | TECT/FORAMIN | | | | | | | ,LUMBAR 1 | | | | | | | SEG [place] | | | | | | | LAMINEC/FACE | | | | | | | TECT/FORAMIN | | | | | | | ,EACH ADDNL | | | | | | | [place] INSJ | | | | | | | BIOMCHN DEV | | | | | | | INTERVERTEBR | | | | | | | AL DSC SPC | | | | | | | W/ARTHRD [place] | | | | | | | APPLICATION | | | | | | | | | | | | | | INTERVERTEBR | | | | | | | AL | | | | | | | BIOMECHANICA | | | | | | | L DEVICE | | | | | | | L4-5 Lateral | | | | | | | Anterior | | | | | | | Interbody | | | | | | | Fusion, | | | | | | | L5-S1 | | | | | | | Transforamin | | | | | | | al Lumbar | | | | | | | Interbody | | | | | | | Fusion | | | +--------+--------+ + + + + Encounter Details +--------+---------+ + + + | Date | Type | Department | Care Team | Description | +--------+---------+ + + + | 02/13/ | Surgery | [facility] | Agusto Pereira MD | Canceled L4-5 | | 2017 | | [facility] | [address] | Lateral Anterior | | | | [address] | [place] [address] | Interbody Fusion, | | | | MARCOS Zavala | [phone] | L5-S1 Transforaminal | | | | [id number] | | Lumbar Interbody | | | | [phone] | | Fusion | +--------+---------+ + + + Social History + +-------+ [...] + + + | Blood Pressure | 185/66 | 02/13/2017 1:37 PM | | | | | PDT | | + + + + + | Pulse | 84 | 02/13/2017 1:37 PM | | | | | PDT | | + + + + + | Temperature | 36.5 C (97.7 F) | 02/13/2017 1:37 PM | | | | | PDT | | + + + + + | Respiratory Rate | 17 | 02/13/2017 1:37 PM | | | | | PDT | | + + + + + | Oxygen Saturation | 100% | 02/13/2017 1:37 PM | | | | | PDT | | + + + + + | Inhaled Oxygen | - | - | | | Concentration | | | | + + + + + | Weight | 85.2 kg (187 lb 14.4 | 02/13/2017 1:37 PM | | | | oz) | PDT | | + + + + + | Height | 167.6 cm (5' 6") | 02/13/2017 1:37 PM | | | | | PDT | | + + + + + | Body Mass Index | 30.33 | 02/13/2017 1:37 PM | | | | | PDT | | + + + + + documented in this encounter Medications at Time of Discharge + + + +---------+ + + | Medication | Sig | Dispensed | Refills | Start | End Date | | | | | | Date | | + + + +---------+ + + | diclofenac | Apply 1 g topically | | 0 | | | | (VOLTAREN) 1% GEL | 2 times daily. | | | | | + + + +---------+ + + | hydroxychloroquine | Take 200 mg by mouth | | 0 | | | | (PLAQUENIL) 200 mg | Daily. | | | | | | tablet | | | | | | + + + +---------+ + + | | Take 1 tablet by | | 0 | | | | losartan-hydrochloro | mouth Daily. | | | | | | thiazide (HYZAAR) | | | | | | | 50-12.5 MG per | | | | | | | tablet | | | | | | + + + +---------+ + + | LYSINE PO | Take 50 mg by mouth | | 0 | | | | | Daily. L-Lysine 50 | | | | | | | mg daily | | | | | + + + +---------+ + + | methotrexate 2.5 | Take 10 mg by mouth | | 0 | | | | mg tablet | Once a week. | | | | | + + + +---------+ + + | NALTREXONE HCL PO | Take 5 mg by mouth | | 0 | | | | | Daily. | | | | | + + + +---------+ + + | Nutritional | Take 1 tablet by | | 0 | | | | Supplements | mouth Daily. | | | | | | (ESTROVEN PO) | | | | | | + + + +---------+ + + | BIOTIN 5000 PO | Take 1 tablet by | | 0 | | | | | mouth Daily. | | | | 9 | + + + +---------+ + + | Cholecalciferol | Take 2,000 Units by | | 0 | | | | (VITAMIN D-3) 2000 | mouth Daily. | | | | 9 | | units CAPS | | | | | | + + + +---------+ + + | Cyanocobalamin | Take 1,000 mcg by | | 0 | | | | (VITAMIN B 12 PO) | mouth Daily. | | | | 9 | + + + +---------+ + + | diclofenac | Take 75 mg by mouth | | 0 | | | | (VOLTAREN) 75 mg EC | 2 times daily. | | | | 7 | | tablet | | | | | | + + + +---------+ + + | docusate sodium | Take 100 mg by mouth | | 0 | | | | (COLACE) 100 mg | Daily as needed for | | | | 7 | | capsule | Constipation. | | | | | + + + +---------+ + + | folic acid 1 mg | Take 1 mg by mouth | | 0 | | | | tablet | Daily. | | | | 9 | + + + +---------+ + + | lactulose 10 g/15 | Take 30 mLs by mouth | 240 mL | 2 | 02/18/20 | | | mL solution | 2 times daily. For | | | 17 | 7 | | | constipation | | | | | + + + +---------+ + + | Multiple | Take 1 capsule by | | 0 | | | | Vitamins-Minerals | mouth 2 times daily. | | | | 8 | | (PRESERVISION AREDS | | | | | | | 2) CAPS | | | | | | + + + +---------+ + + | ondansetron | Take 1 tablet by | 15 | 3 | 02/18/20 | | | (ZOFRAN ODT) 4 mg | mouth every 6 hours | tablet | | 17 | 7 | | disintegrating | as needed for Nausea | | | | | | tablet | or Vomiting. | | | | | + + + +---------+ + + | oxyCODONE | Take 1-2 tablets by | 120 | 0 | 02/18/20 | | | (ROXICODONE) 5 mg | mouth every 4 hours | tablet | | 17 | 7 | | tablet | as needed for Pain. | | | | | + + + +---------+ + + | ranitidine | Take 150 mg by mouth | | 0 | | | | (ZANTAC) 150 mg | Daily as needed for | | | | 7 | | tablet | Heartburn. | | | | | + + + +---------+ + + | tiZANidine | Take 1 tablet by | 90 | 3 | 02/18/20 | | | (ZANAFLEX) 4 mg | mouth 3 times daily | tablet | | 17 | 7 | | tablet | as needed (Muscle | | | | | | | Spasms). | | | | | + + + +---------+ + + documented as of this encounter [...] [place] | | | | | | [place] [address] | | | | | | [phone] | | | | | | | | | | | | [employer] | | +--------+ + + + + documented as of this encounter Visit Diagnoses Not on filedocumented in this encounter Administered Medications + +--------+---------+------+------+------+ | Medication Order | MAR | Action | Dose | Rate | Site | | | Action | Date | | | | + +--------+---------+------+------+------+ + +---+ | albuterol-ipratropium (DUONEB) | | | 2.5-0.5 mg/3 mL nebulizer | | | solution 3 mL 3 mL, | | | Nebulization, ONCE PRN, Wheezing, | | | Starting 02/13/17 at 1350, | | | For 1 dose, Pre-op | | + +---+ | | | + +---+ | ceFAZolin in saline (ANCEF) | | | IVPB 2 g 2 g, Intravenous, | | | Administer over 30 Minutes, Prior | | | to Incision, Starting Tue | | | 02/13/17 at 1350, For 1 dose, | | | Administer within 1 hour of | | | surgical incision. Keep in | | | refrigerator., Pre-op, | | | Indications: Surgical Prophylaxis | | + +---+ | | | + +---+ | dextrose 50% injection 12.5-25 | | | g 12.5-25 g, Intravenous, EVERY | | | 15 MIN PRN, Low Blood Sugar, Give | | | 12.5g (25 mL) IV if blood | | | glucose 50-69 mg/dL. Give 25g | | | (50 mL) IV if blood glucose < 50, | | | Starting 02/13/17 at 1350, | | | Repeat in 15 min if blood glucose | | | remains < 70 mg/dL. Repeat | | | blood glucose in 30 min once | | | blood glucose > 70., Pre-op | | + +---+ | | | + +---+ | ipratropium (ATROVENT) 500 | | | mcg/2.5 mL nebulizer solution 500 | | | mcg 500 mcg, Nebulization, ONCE | | | PRN, Wheezing, Starting Sun | | | 02/13/17 at 1350, For 1 dose, RT | | | will administer., Pre-op | | + +---+ | | | + +---+ + +---------+ +---+ +---+ | lactated ringers (LR) infusion | New Bag | 02/14/20 | | 50 mL/hr | | | at 10-100 mL/hr, Intravenous, | | 17 2:20 | | | | | CONTINUOUS, Starting e 02/13/17 | | PM PDT | | | | | at 1415, TKO., Pre-op | | | | | | + +---------+ +---+ +---+ +---+---+ | | | +---+---+ documented in this encounter
--- OUTSIDE RECORDS SUMMARY | ~2019-05-17 | XMS | Encounter Summary ---
Demographics + + + | Address | [address] | | | [place] [address] | + + + | Home Phone | | + + + | Preferred Language | Unknown | + + + | Marital Status | | + + + | Christianity Affiliation | Unknown | + + + | Race | White | + + + | Ethnic Group | Not or | + + + Author + + + | Author | [facility] | + + + | Organization | [facility] | + + + | Address | Unknown | + + + | Phone | Unavailable | + + + Support + + +---------+ + | Name | Relationship | Address | Phone | + + +---------+ + | Alon Santiago | ECON | Unknown | | + + +---------+ + Care Team Providers + +------+ + | Care Retail Worker Name | Role | Phone | + +------+ + | Thee Boss MD | PCP | | + +------+ + Encounter Details +--------+------+ + + + | Date | Type | Department | Care Team | Description | +--------+------+ + + + | 06/01/ | Lab | Laboratory, | | Arthralgia; | | 2013 | | Specimen Collection | | Myalgia; | | | | at [facility] 3rd Floor | | Fatigue | | | | [address] | | | | | | [place], | | | | | | [place] [address] | | | | | | [phone] | | | +--------+------+ + + + Social History + +-------+ [...] Not on filedocumented as of this encounter Procedures + +--------+ + + + | Procedure Name | Priori | Date/Time | Associated Diagnosis | Comments | | | ty | | | | + +--------+ + + + | CBC AND AUTO DIFF | Routin | 06/01/2014 | Arthralgia | Results for this | | | e | 4:51 PM | [facility] | procedure are in the | | | | PST | | results section. | + +--------+ + + + | CBC, WITH | Routin | 06/01/2014 | Arthralgia | Results for this | | DIFFERENTIAL | e | 4:51 PM | [facility] | procedure are in the | | | | PST | | results section. | + +--------+ + + + | VITAMIN D, | Routin | 06/01/2014 | Arthralgia | Results for this | | 25-HYDROXY, SERUM | e | 4:51 PM | [facility] | procedure are in the | | | | PST | | results section. | + +--------+ + + + | COMPLETE METABOLIC | Routin | 06/01/2014 | Arthralgia | Results for this | | SET | e | 4:51 PM | [facility] | procedure are in the | | (NA,K,CL,CO2,BUN,CRE | | PST | | results section. | | AT,GLUC,CA,AST,ALT,B | | | | | | MEDINA TOTAL,ALK | | | | | | PHOS,ALB,PROT TOTAL) | | | | | + +--------+ + + + | C-REACTIVE PROTEIN | Routin | 06/01/2014 | Arthralgia | Results for this | | | e | 4:51 PM | [facility] | procedure are in the | | | | PST | | results section. | + +--------+ + + + | SEDIMENTATION RATE | Routin | 06/01/2014 | Arthralgia | Results for this | | | e | 4:51 PM | [facility] | procedure are in the | | | | PST | | results section. | + +--------+ + + + | TSH | Routin | 06/01/2014 | Arthralgia | Results for this | | | e | 4:51 PM | [facility] | procedure are in the | | | | PST | | results section. | + +--------+ + + + | FOLATE, SERUM | Routin | 06/01/2014 | Arthralgia | Results for this | | | e | 4:51 PM | [facility] | procedure are in the | | | | PST | | results section. | + +--------+ + + + | ALDOLASE, SERUM | Routin | 06/01/2014 | Arthralgia | Results for this | | | e | 4:51 PM | [facility] | procedure are in the | | | | PST | | results section. | + +--------+ + + + | VITAMIN B-12 | Routin | 06/01/2014 | Arthralgia | Results for this | | | e | 4:51 PM | My[facility] | procedure are in the | | | | PST | | results section. | + +--------+ + + + | PROTEIN | Routin | 06/01/2014 | Arthralgia | Results for this | | ELECTROPHORESIS, | e | 4:51 PM | [facility] | procedure are in the | | SERUM, WITH REFLEX | | PST | | results section. | | TO IMMUNOFIXATION | | | | | + +--------+ + + + | CK, PLASMA | Routin | 06/01/2014 | Arthralgia | Results for this | | | e | 4:51 PM | [facility] | procedure are in the | | | | PST | | results section. | + +--------+ + + + documented in this encounter Results CBC AND AUTO DIFF (06/01/2014 4:51 PM PST) + + + + + + | Component | Value | Ref Range | Performed | Pathologist | | | | | At | Signature | + + + + + + | WHITE CELL | 7.27 | 4.40 - 11.00 | [facility] | | | COUNT | | K/cu mm | LABORATORY | | | | | | SERVICES, | | | | | | CORE | | + + + + + + | RED CELL | 3.82 (L) | 4.00 - 5.20 | [facility] | | | COUNT | | M/cu mm | LABORATORY | | | | | | SERVICES, | | | | | | CORE | | + + + + + + | HEMOGLOBIN | 11.8 (L) | 12.0 - 16.0 | [facility] | | | | | g/dL | LABORATORY | | | | | | SERVICES, | | | | | | CORE | | + + + + + + | HEMATOCRIT | 36.9 | 36.0 - 46.0 % | [facility] | | | | | | LABORATORY | | | | | | SERVICES, | | | | | | CORE | | + + + + + + | MCV | 96.6 (H) | 80.0 - 96.0 fL | [facility] | | | | | | LABORATORY | | | | | | SERVICES, | | | | | | CORE | | + + + + + + | MCHC | 32.0 | 33.0 - 35.5 | [facility] | | | | | g/dL | LABORATORY | | | | | | SERVICES, | | | | | | CORE | | + + + + + + | RDW SD | 47.2 (H) | 35.1 - 46.3 fL | [facility] | | | | | | LABORATORY | | | | | | SERVICES, | | | | | | CORE | | + + + + + + | PLATELET | 284 | 150 - 400 K/cu | [facility] | | | COUNT | | mm | LABORATORY | | | | | | SERVICES, | | | | | | CORE | | + + + + + + | MPV | 11.1 | 9.7 - 12.3 fL | [facility] | | | | | | LABORATORY | | | | | | SERVICES, | | | | | | CORE | | + + + + + + | NRBC% | 0.0 | 0.0 - 0.3 % | [facility] | | | | | | LABORATORY | | | | | | SERVICES, | | | | | | CORE | | + + + + + + | NRBC# | 0.00 | 0.00 - 0.02 | [facility] | | | | | K/cu mm | LABORATORY | | | | | | SERVICES, | | | | | | CORE | | + + + + + + | NEUTROPHIL | 62.3 | 50.0 - 70.0 % | [facility] | | | % | | | LABORATORY | | | | | | SERVICES, | | | | | | CORE | | + + + + + + | LYMPHOCYTE | 24.3 | 18.0 - 42.0 % | [facility] | | | % | | | LABORATORY | | | | | | SERVICES, | | | | | | CORE | | + + + + + + | MONOCYTE % | 10.0 (H) | 3.5 - 9.0 % | [facility] | | | | | | LABORATORY | | | | | | SERVICES, | | | | | | CORE | | + + + + + + | EOS % | 2.3 | 1.0 - 3.0 % | [facility] | | | | | | LABORATORY | | | | | | SERVICES, | | | | | | CORE | | + + + + + + | BASO % | 0.7 | 0.0 - 2.0 % | [facility] | | | | | | LABORATORY | | | | | | SERVICES, | | | | | | CORE | | + + + + + + | IG% | 0.4Comment: Immature | 0.0 - 0.6 % | [facility] | | | | Granulocytes (IG) | | LABORATORY | | | | include metamyelocytes, | | SERVICES, | | | | myelocytes and | | CORE | | | | promyelocytes. Bands | | | | | | are not included in the | | | | | | IG count. Bands are | | | | | | included in the | | | | | | neutrophil count. | | | | + + + + + + | NEUTROPHIL | 4.52 | 1.80 - 7.70 | [facility] | | | # | | K/cu mm | LABORATORY | | | | | | SERVICES, | | | | | | CORE | | + + + + + + | LYMPHOCYTE | 1.77 | 1.00 - 4.80 | [facility] | | | # | | K/cu mm | LABORATORY | | | | | | SERVICES, | | | | | | CORE | | + + + + + + | MONOCYTE # | 0.73 | 0.10 - 0.90 | [facility] | | | | | K/cu mm | LABORATORY | | | | | | SERVICES, | | | | | | CORE | | + + + + + + | EOS # | 0.17 | 0.00 - 0.50 | [facility] | | | | | K/cu mm | LABORATORY | | | | | | SERVICES, | | | | | | CORE | | + + + + + + | BASO # | 0.05 | 0.00 - 0.10 | [facility] | | | | | K/cu mm | LABORATORY | | | | | | SERVICES, | | | | | | CORE | | + + + + + + | IG# | 0.03 | 0.00 - 0.03 | [facility] | | | | | K/cu mm | LABORATORY | | | | | | SERVICES, | | | | | | CORE | | + + + + + + + + | Specimen | + + | Blood - Blood | + + + + + | Narrative | Performed At | + + + | Immature Granulocytes (IG) include metamyelocytes, myelocytes | [facility] | | and promyelocytes. Bands are not included in the IG count. Bands are | LABORATORY | | included in the neutrophil count. | SERVICES, CORE | + + + + + + + + | Performing | Address | City/State/Zipcode | Phone Number | | Organization | | | | + + + + + | [facility] | [address] | [place] [address] | | | SERVICES, CORE | [address] | | | + + + + + C-REACTIVE PROTEIN (06/01/2014 4:51 PM PST) + +-------+ + + + | Component | Value | Ref Range | Performed | Pathologist | | | | | At | Signature | + +-------+ + + + | C-REACTIVE | <2.9 | <10.0 mg/L | [facility] | | | PROTEIN | | | LABORATORY | | | | | | SERVICES, | | | | | | CORE | | + +-------+ + + + + + | Specimen | + + | Blood - Blood | + + + + + | Narrative | Performed At | + + + | New method, new reference range and new reporting units as of | [facility] | | 11/26/2013. | LABORATORY | | | SERVICES, CORE | + + + + + + + + | Performing | Address | City/State/Zipcode | Phone Number | | Organization | | | | + + + + + | [facility] | [address] | [place] [address] | | | SERVICES, CORE | [address] | | | + + + + + COMPLETE METABOLIC SET (NA,K,CL,CO2,BUN,CREAT,GLUC,CA,AST,ALT,BILI TOTAL,ALK PHOS,ALB,PROT TOTAL) (06/01/2014 4:51 PM PST) + +---------+ + + + | Component | Value | Ref Range | Performed | Pathologist | | | | | At | Signature | + +---------+ + + + | GLUCOSE, | 83 | 60 - 99 mg/dL | [facility] | | | PLASMA | | | LABORATORY | | | (LAB) | | | SERVICES, | | | | | | CORE | | + +---------+ + + + | BUN, PLASMA | 24 (H) | 6 - 20 mg/dL | [facility] | | | (LAB) | | | LABORATORY | | | | | | SERVICES, | | | | | | CORE | | + +---------+ + + + | CREATININE | 0.93 | 0.60 - 1.10 | [facility] | | | PLASMA | | mg/dL | LABORATORY | | | (LAB) | | | SERVICES, | | | | | | CORE | | + +---------+ + + + | EGFR | >60 | >60 mL/min | [facility] | | | - | | | LABORATORY | | | SUDANESE | | | SERVICES, | | | | | | CORE | | + +---------+ + + + | EGFR NON | 59 (L) | >60 mL/min | [facility] | | | -REI | | | LABORATORY | | | RICAN | | | SERVICES, | | | | | | CORE | | + +---------+ + + + | SODIUM, | 142 | 136 - 145 | [facility] | | | PLASMA | | mmol/L | LABORATORY | | | (LAB) | | | SERVICES, | | | | | | CORE | | + +---------+ + + + | POTASSIUM, | 3.5 | 3.4 - 5.0 | [facility] | | | PLASMA | | mmol/L | LABORATORY | | | (LAB) | | | SERVICES, | | | | | | CORE | | + +---------+ + + + | CHLORIDE, | 107 | 97 - 108 mmol/L | [facility] | | | PLASMA | | | LABORATORY | | | (LAB) | | | SERVICES, | | | | | | CORE | | + +---------+ + + + | TOTAL CO2, | 29 | 21 - 32 mmol/L | [facility] | | | PLASMA | | | LABORATORY | | | (LAB) | | | SERVICES, | | | | | | CORE | | + +---------+ + + + | CALCIUM, | 8.5 (L) | 8.6 - 10.2 | [facility] | | | PLASMA | | mg/dL | LABORATORY | | | (LAB) | | | SERVICES, | | | | | | CORE | | + +---------+ + + + | BILIRUBIN | 0.2 (L) | 0.3 - 1.2 mg/dL | [facility] | | | TOTAL | | | LABORATORY | | | | | | SERVICES, | | | | | | CORE | | + +---------+ + + + | TOTAL | 6.7 | 6.4 - 8.2 g/dL | [facility] | | | PROTEIN, | | | LABORATORY | | | PLASMA | | | SERVICES, | | | (LAB) | | | CORE | | + +---------+ + + + | ALBUMIN, | 3.7 | 3.5 - 4.7 g/dL | [facility] | | | PLASMA | | | LABORATORY | | | (LAB) | | | SERVICES, | | | | | | CORE | | + +---------+ + + + | ALK PHOS | 85 | 53 - 141 U/L | [facility] | | | | | | LABORATORY | | | | | | SERVICES, | | | | | | CORE | | + +---------+ + + + | AST(SGOT) | 17 | 15 - 41 U/L | [facility] | | | | | | LABORATORY | | | | | | SERVICES, | | | | | | CORE | | + +---------+ + + + | ALT (SGPT) | 22 | 12 - 60 U/L | [facility] | | | | | | LABORATORY | | | | | | SERVICES, | | | | | | CORE | | + +---------+ + + + | ANION | 6 | 4 - 11 mmol/L | [facility] | | | GAP(ALB | | | LABORATORY | | | CORRECTED) | | | SERVICES, | | | | | | CORE | | + +---------+ + + + | POTASSIUM | No Hemo | | [facility] | | | CMNT | | | LABORATORY | | | | | | SERVICES, | | | | | | CORE | | + +---------+ + + + | BILI T CMNT | No Hemo | | [facility] | | | | | | LABORATORY | | | | | | SERVICES, | | | | | | CORE | | + +---------+ + + + | AST CMNT | No Hemo | | [facility] | | | | | | LABORATORY | | | | | | SERVICES, | | | | | | CORE | | + +---------+ + + + | ANION GAP | 6 | mmol/L | [facility] | | | | | | LABORATORY | | | | | | SERVICES, | | | | | | CORE | | + +---------+ + + + + + | Specimen | + + | Blood - Blood | + + + + + | Narrative | Performed At | + + + | GFR is estimated using the MDRD equation recommended by the | [facility] | | National Kidney Disease Education Program. Estimated GFR | LABORATORY | | Interpretive Information: <60 mL/min/1.73 sq m | SERVICES, CORE | | Chronic Kidney Disease <15 mL/min/1.73 sq m | | | Kidney Failure Estimated GFR greater that 60 mL/min/1.73 sq m is of | | | limited clinical value. The MDRD equation is not valid in the | | | following situations: - Patients under 18 years of age - Severe | | | malnutrition or obesity - Vegetarian diet - Rapidly changing kidney | | | function | | + + + + + + + + | Performing | Address | City/State/Zipcode | Phone Number | | Organization | | | | + + + + + | [facility] [employer] | [address] | [place] [address] | | | SERVICES, CORE | [address] | | | + + + + + PROTEIN ELECTROPHORESIS, SERUM (06/01/2014 4:51 PM PST) + + + + + + | Component | Value | Ref Range | Performed | Pathologist | | | | | At | Signature | + + + + + + | TOTAL | 6.5 | 5.5 - 8.0 gm/dL | [facility] - | | | PROTEIN, | | | AIRPORT - | | | SERUM - | | | [place] | | | SPEP | | | | | + + + + + + | GAMMA %, | 8.7 | % | [facility] - | | | SPEP | | | AIRPORT - | | | | | | [place] | | + + + + + + | GAMMA, | 0.57 | 0.50 - 1.50 | [facility] - | | | SERUM - | | gm/dL | AIRPORT - | | | SPEP | | | [place] | | + + + + + + | BETA % SPEP | 12.5 | % | [facility] | | | | | | AIRPORT - | | | | | | [place] | | + + + + + + | BETA, SERUM | 0.81 | 0.60 - 1.20 | [facility] | | | - SPEP | | gm/dL | AIRPORT - | | | | | | [place] | | + + + + + + | ALPHA-2 %, | 11.0 | % | [facility] | | | SPEP | | | AIRPORT - | | | | | | [place] | | + + + + + + | ALPHA-2, | 0.72 | 0.50 - 0.90 | [facility] - | | | SERUM - | | gm/dL | AIRPORT - | | | SPEP | | | [place] | | + + + + + + | ALPHA-1 %, | 2.3 | % | [facility] | | | SPEP | | | AIRPORT - | | | | | | [place] | | + + + + + + | ALPHA-1, | 0.15 | 0.10 - 0.40 | [facility] - | | | SERUM - | | gm/dL | AIRPORT - | | | SPEP | | | [place] | | + + + + + + | ALBUMIN %, | 65.5 | % | [facility] - | | | SPEP | | | AIRPORT - | | | | | | [place] | | + + + + + + | ALBUMIN,SER | 4.26 | 3.00 - 5.00 | [facility] - | | | UM - SPEP | | gm/dL | AIRPORT - | | | | | | [place] | | + + + + + + | SPEP | Within usual | | [facility] - | | | COMMENTS | limits.Comment: | | AIRPORT - | | | | Interpretation By: Thee | | LIZ | | | | Maria Ramirez MT | | | | + + + + + + + + | Specimen | + + | Blood - Blood | + + + + + + + | Performing | Address | City/State/Zipcode | Phone Number | | Organization | | | | + + + + + | [facility] | [address] | [place] [address] | | | [place] | | | | + + + + + FOLATE, SERUM (06/01/2014 4:51 PM PST) + +-------+ + + + | Component | Value | Ref Range | Performed | Pathologist | | | | | At | Signature | + +-------+ + + + | FOLATE,SERU | 30.5 | >5.8 ng/mL | [facility] | | | M | | | LABORATORY | | | | | | SERVICES, | | | | | | SPECIAL IMM | | | | | | + [place] | | + +-------+ + + + + + | Specimen | + + | Blood - Blood | + + + + + | Narrative | Performed At | + + + | Folate Interpretive Comment: Normal: >5.8 ng/mL Indeterminate: | [facility] | | 4.0 - 5.8 ng/mL Deficient: <4.0 ng/mL | LABORATORY | | | SERVICES, | | | SPECIAL IMM + | | | [place] | + + + + + + + + | Performing | Address | City/State/Zipcode | Phone Number | | Organization | | | | + + + + + | [facility] | [address] | [place] [address] | | | SERVICES, SPECIAL | [address] | | | | IMM + [place] | | | | + + + + + VITAMIN B-12, SERUM (06/01/2014 4:51 PM PST) + +-------+ + + + | Component | Value | Ref Range | Performed | Pathologist | | | | | At | Signature | + +-------+ + + + | VITAMIN B12 | 627 | 190 - 910 pg/ml | [facility] | | | | | | LABORATORY | | | | | | SERVICES, | | | | | | SPECIAL IMM | | | | | | + [place] | | + +-------+ + + + + + | Specimen | + + | Blood - Blood | + + + + + + + | Performing | Address | City/State/Zipcode | Phone Number | | Organization | | | | + + + + + | [facility] | [address] | [place] [address] | | | SERVICES, SPECIAL | [address] | | | | IMM + [place] | | | | + + + + + TSH (06/01/2014 4:51 PM PST) + +-------+ + + + | Component | Value | Ref Range | Performed | Pathologist | | | | | At | Signature | + +-------+ + + + | TSH | 3.26 | 0.47 - 7.11 | [facility] | | | | | mIU/L | LABORATORY | | | | | | SERVICES, | | | | | | CORE | | + +-------+ + + + + + | Specimen | + + | Blood - Blood | + + + + + | Narrative | Performed At | + + + | TSH reference ranges are influenced by a variety of environmental | [facility] | | influences, age, gender and ethnicity. The supplied reference limits | LABORATORY | | are based on published values utilizing a similar TSH assay, and | SERVICES, CORE | | should be interpreted with caution. | | + + + + + + + + | Performing | Address | City/State/Zipcode | Phone Number | | Organization | | | | + + + + + | [facility] | [address] | [place] [address] | | | CAM, SAMIR | [address] | | | + + + + + VITAMIN D, 25-HYDROXY, SERUM (06/01/2014 4:51 PM PST) + +-------+ + + + | Component | Value | Ref Range | Performed | Pathologist | | | | | At | Signature | + +-------+ + + + | VITAMIN D | 45.9 | 30 - 80 ng/mL | [facility] | | | 25 HYDROXY | | | LABORATORY | | | | | | SERVICES, | | | | | | SPECIAL IMM | | | | | | + [place] | | + +-------+ + + + + + | Specimen | + + | Blood - Blood | + + + + + | Narrative | Performed At | + + + | REFERENCE INTERVAL: Vitamin D, 25-Hydroxy 0-17years: | [facility] | | Deficiency: less than 20 ng/mL Optimum level: | LABORATORY | | greater than or equal to 20 ng/mL* | SERVICES, | | *(Adkins CL et al. Pediatrics 2008; 122:1128-38.) 18 | SPECIAL IMM + | | years and older: Deficiency: less than 20 | [facility] | | ng/mL Insufficiency: 20-29 ng/mL | | | Optimum Level: 30-80 ng/mL High: | | | 81-150 ng/ml Toxic: Greater than | | | 150 ng/mL This assay accurately quantifies the sum of Vitamin D3 | | | 25-hydroxy and Vitamin D2, 25-hydroxy. Reference range | | | change effective 01/16/2013. | | + + + + + + + + | Performing | Address | City/State/Zipcode | Phone Number | | Organization | | | | + + + + + | [facility] | [address] | [place] [address] | | | SERVICES, SPECIAL | [address] | | | | IMM + [place] | | | | + + + + + ALDOLASE, SERUM (06/01/2014 4:51 PM PST) + + + + + + | Component | Value | Ref Range | Performed | Pathologist | | | | | At | Signature | + + + + + + | ALDOLASE | 6.2Comment: REFERENCE | 1.5 - 8.1 U/L | [facility] | | | SERUM | INTERVAL: Aldolase | | REG UNIV | | | | Access complete set of | | PTH - [facility] | | | | age- and/or | | | | | | gender-specific | | | | | | reference intervals for | | | | | | this test in the [facility] | | | | | | Laboratory Test | | | | | | Directory | | | | | | ([email or web address]).Performed | | | | | | by [email or web address] | | | | | | Alisia Velasquez, [facility] [place] | | | | | | [phone] | | | | | | [phone].[email or web address]. | | | | | | [facility], Delvis Ugarte, | | | | | | Lab. LOPEZ Director | | | | + + + + + + + + | Specimen | + + | Blood - Blood | + + + + + + + | Performing | Address | City/State/Zipcode | Phone Number | | Organization | | | | + + + + + | [facility] | [address] | [place], [place] | | | UNIV PTH - [facility] | | [address] | | + + + + + CK, PLASMA (06/01/2014 4:51 PM PST) + +-------+ + + + | Component | Value | Ref Range | Performed | Pathologist | | | | | At | Signature | + +-------+ + + + | CK | 140 | 38 - 234 U/L | [facility] | | | | | | LABORATORY | | | | | | SERVICES, | | | | | | CORE | | + +-------+ + + + + + | Specimen | + + | Blood - Blood | + + + + + + + | Performing | Address | City/State/Zipcode | Phone Number | | Organization | | | | + + + + + | [facility] | [address] | [place] [address] | | | SERVICES, CORE | [address] | | | + + + + + SEDIMENTATION RATE (06/01/2014 4:51 PM PST) + +-------+ + + + | Component | Value | Ref Range | Performed | Pathologist | | | | | At | Signature | + +-------+ + + + | SEDIMENTATI | 21 | 0 - 30 mm/hr | [facility] | | | ON RATE | | | LABORATORY | | | | | | SERVICES, | | | | | | CORE | | + +-------+ + + + + + | Specimen | + + | Blood - Blood | + + + + + + + | Performing | Address | City/State/Zipcode | Phone Number | | Organization | | | | + + + + + | [facility] | [address] | [place] [address] | | | SERVICES, CORE | [address] | | | + + + + + documented in this encounter Visit Diagnoses + + | Diagnosis | + + | Arthralgia Pain in joint, site unspecified | + + | Myalgia Mylagia and myositis, unspecified | + + | Fatigue Other malaise and fatigue | + + documented in this encounter"
--- OUTSIDE RECORDS SUMMARY | ~2019-05-17 | XMS | Encounter Summary ---
Demographics + + + | Address | [address] | | | [place] [address] | + + + | Home Phone | | + + + | Preferred Language | Unknown | + + + | Marital Status | | + + + | Latter Day Affiliation | 1077 | + + + | Race | Unknown | + + + | Ethnic Group | Unknown | + + + Author + + + | Author | [facility] | | | and Azana | + + + | Organization | [facility] | | | and Azana [...] [place], [place] | | | | | [address] | | + + + + + | Helena Doherty | ECON | [place], | | | | | [place] [address] | | + + + + + Care Team Providers + +------+ + | Care Facing Cutting Machine Operator Name | Role | Phone | + +------+ + | Nathan Luevano DO | PCP | | + +------+ + Encounter Details +--------+ + + + + | Date | Type | Department | Care Team | Description | +--------+ + + + + | 02/04/ | Orders Only | [facility] | Conversion | | | 2019 | | NEPRHOLOGY [facility] | Transaction, | | | | | [address] | Provider Unknown | | | | | [address] [place], [place] | [phone] | | | | | [address] | | | | | | [phone] | | | +--------+ + + + [...] | 0 Standard drinks | 0.0 | Alcoholic | | | or equivalent | | Drinks/day: | | | | | occasional | + + +---------+ + + + [...] [place] | | | | | | [place] [address] | | | | | | [phone] | | | | | | | | | | | | Service ArchitectNaomi | | +--------+ + + + + documented as of this encounter Procedures + +--------+ + + + | Procedure Name | Priori | Date/Time | Associated Diagnosis | Comments | | | ty | | | | + +--------+ + + + | EXTERNAL LAB: CBC | Routin | 02/04/2019 | | Results for this | | | e | 9:41 AM | | procedure are in the | | | | PDT | | results section. | + +--------+ + + + | MICROALBUMIN/CREATIN | Routin | 02/04/2019 | | Results for this | | INE RATIO, URINE | e | 9:41 AM | | procedure are in the | | TEST | | PDT | | results section. | + +--------+ + + + | PARATHYROID HORMONE, | Routin | 02/04/2019 | | Results for this | | INTACT | e | 9:41 AM | | procedure are in the | | | | PDT | | results section. | + +--------+ + + + | RENAL FUNCTION PANEL | Routin | 02/04/2019 | | Results for this | | | e | 9:41 AM | | procedure are in the | | | | PDT | | results section. | + +--------+ + + + documented in this encounter Results Microalbumin/Creatinine Ratio, Urine (02/04/2019 9:41 AM PDT) + + + + + + | Component | Value | Ref Range | Performed | Pathologist | | | | | At | Signature | + + + + + + | ALBUMIN/CRE | Comment: Microalbumin | | EXTERNAL | | | ATININE | calculation is invalid | | LAB | | | RATIO.URINE | when microalbumin is | | | | | .ORD.MG/G | less than 0.7 | | | | | (BEAKER) | | | | | | | [...] + +---------+ + + External Lab: CBC (02/04/2019 9:41 AM PDT) + + + + + + | Component | Value | Ref Range | Performed | Pathologist | | | | | At | Signature | + + + + + + | WBC | 7.4 | 4.5 - 11.0 10 | EXTERNAL | | | | | | LAB | | + + + + + + | RED CELL | 3.45 (A) | 3.8 - 5.1 10 | EXTERNAL | | | COUNT | | | LAB | | + + + + + + | Hgb | 11.4 (A) | 12.0 - 16.0 | EXTERNAL | | | | | g/dL | LAB | | + + + + + + | Hematocrit, | 34.4 (A) | 35 - 45 % | EXTERNAL | | | POC | | | LAB | | + + + + + + | MCV | 99.9 (A) | 81 - 99 fL | EXTERNAL | | | | | | LAB | | + + + + + + | MCH | 33 | 27 - 33 pg | EXTERNAL | | | | | | LAB | | + + + + + + | MCHC | 33 | 30 - 36 g/dL | EXTERNAL | | | | | | LAB | | + + + + + + | Platelet | 236 | 140 - 440 K/?L | EXTERNAL | | | Count | | | LAB | | | Plasma | | | | | + + + + + + | RDW-CV | 13.8 | 10.5 - 15.0 % | EXTERNAL [...] + + + | % Segmented | 75.6 | 39 - 80 % | EXTERNAL | | | | | | LAB | | | Neutrophils | | | | | + + + + + + | % | 15.4 (A) | 24 - 44 % | EXTERNAL | | | Lymphocytes | | | LAB | | + + + + + + | % Monocytes | 6.7 | 0 - 12 % | EXTERNAL | | | | | | LAB | | + + + + + + | % | 1.1 | 0 - 6 % | EXTERNAL | | | Eosinophils | | | LAB | | + + + + + + | % Basophils | 1.2 | 0 - 2 % | EXTERNAL | | | | | | LAB | | + + + + + + | Absolute | | /?L | EXTERNAL | | | Segmented | | | LAB | | | Neutrophils | | | | | + + + + + + | Absolute | | /?L | EXTERNAL | | | Lymphocytes | | | LAB | | + + + + + + | Absolute | | /?L | EXTERNAL | | | Monocytes | | | LAB | | + + + + + + | Absolute | | /?L | EXTERNAL | | | Eosinophils | | | LAB | | + + + + + + | Absolute | | /?L | EXTERNAL | | | Basophils | [...] | | | + +---------+ + + Parathyroid Hormone, Intact (02/04/2019 9:41 AM PDT) + + + + + + | Component | Value | Ref Range | Performed | Pathologist | | | | | At | Signature | + + + + + + | PTH INTACT | 70.30 (A) | 15 - 65 pg/mL | EXTERNAL | | | | | [...] | | | + +---------+ + + Renal Function Panel (02/04/2019 9:41 AM PDT) + +--------+ + + + | Component | Value | Ref Range | Performed | Pathologist | | | | | At | Signature | + +--------+ + + + | Glucose, | 98 | 70 - 100 mg/dL | EXTERNAL | | | Fasting | | | LAB | | + +--------+ + + + | BUN | 24 (A) | 6 - 23 mg/dL | EXTERNAL | | | | | | LAB | | + +--------+ + + + | Creatinine | 1.06 | 0.70 - 1.18 | EXTERNAL | | | | | mg/dL | LAB | | + +--------+ + + + | PHOSPHORUS | 2.6 | 2.5 - 5.0 mg/dL | EXTERNAL | | | | | | LAB | | + +--------+ + + + | Albumin | 3.7 | 3.5 - 5.0 | EXTERNAL | | | | | | LAB | | + +--------+ + + + | Na | 139 | 132 - 143 | EXTERNAL | | | | | mmol/L | LAB | | + +--------+ + + + | K | 3.7 | 3.6 - 5.1 | EXTERNAL | | | | | mmol/L | LAB | | + +--------+ + + + | Cl | 103 | 95 - 112 mmol/L | EXTERNAL | | | | | | LAB | | + +--------+ + + + | CO2 | 27 | 19 - 31 mmol/L | EXTERNAL | | | | | | LAB | | + +--------+ + + + | Anion Gap | 12.7 | 7 - 21 mmol/L | EXTERNAL | | | | | | LAB | | + +--------+ + + + | eGFR if not | | | EXTERNAL | | | | | | LAB | | | ESTONIAN | | | | | + +--------+ + + + | Phosphorus, | | | EXTERNAL | | | Inorganic | | | LAB | | + +--------+ + + + | BUN/Creatin | 22.6 | 6.0 - 28.6 | EXTERNAL | | | ine Ratio | | | LAB | | + +--------+ + + + | Calcium | 9.3 | 8.5 - 10.3 | EXTERNAL | | | | | mg/dL | LAB | | + +--------+ + + + | Estimated | 50 (A) | 60 - 140 mg/dL | EXTERNAL | | | GFR | | | LAB | | + +--------+ + + + + + | Specimen [...]
--- OUTSIDE RECORDS SUMMARY | ~2019-05-17 | XMS | Encounter Summary ---
Demographics + + + | Address | [address] | | | [place] [address] | + + + | Home Phone | | + + + | Preferred Language | Unknown | + + + | Marital Status | | + + + | Anabaptist Affiliation | 1077 | + + + | Race | Unknown | + + + | Ethnic Group | Unknown | + + + Author + + + | Author | [facility] | | | and Azana | + + + | Organization | [facility] | | | and Azana [...] [place], [place] | | | | | [address] | | + + + + + | Helena Doherty | ECON | [place], | | | | | [place] [address] | | + + + + + Care Team Providers + +------+ + | Care Recovery Manager Name | Role | Phone | + +------+ + | Nathan Luevano DO | PCP | | + +------+ + Reason for Visit + + + | Reason | Comments | + + + | Referral | | | (PreAuthorization) | | + + + Encounter Details +--------+ + + + + | Date | Type | Department | Care Team | Description | +--------+ + + + + | 12/10/ | Telephone | [facility] | Dimitri Lucas | Referral | | 2019 | | [address] | MD Abbi [address] | (PreAuthorization) | | | | [address] | [address] [facility] | | | | | [place] | [facility] [place] [place] [address] | | | | | [address] | [phone] | | | | | [phone] | | | +--------+ + + + [...] 2019 | Encounter | | [address] [facility] | | | | | | [address] | | | | | | [place] [address] | | | | | | [phone] | | | | | | | | | | | | Fur [place]ber, [facility] | | +--------+ + + + + documented as of this encounter Visit Diagnoses Not on filedocumented in this encounter"
--- OUTSIDE RECORDS SUMMARY | ~2019-05-17 | XMS | Encounter Summary ---
Demographics + + + | Address | [address] | | | [place] [address] | + + + | Home Phone | | + + + | Preferred Language | Unknown | + + + | Marital Status | | + + + | Cheondoism Affiliation | 1077 | + + + | Race | Unknown | + + + | Ethnic Group | Unknown | + + + Author + + + | Author | [facility] | | | and Azana | + + + | Organization | [facility] | | | and Azana [...] [place], [place] | | | | | [address] | | + + + + + | Helena Doherty | ECON | [place], | | | | | [place] [address] | | + + + + + Care Team Providers + +------+ + | Care Screen Making Supervisor Name | Role | Phone | + +------+ + | Nathan Luevano DO | PCP | | + +------+ + Reason for Visit +--------+ + | Reason | Comments | +--------+ + | Letter | | +--------+ + Encounter Details +--------+ + + + + | Date | Type | Department | Care Team | Description | +--------+ + + + + | 01/22/ | Telephone | [facility] | Agusto Pereira MD | Letter | | 2017 | | NEUROSURGERY [address] | [address] | | | | | [address] | [place] [address] | | | | | [place] | [phone] | | | | | [address] | | | | | | [phone] | | | +--------+ + + + [...] | | | | | [address] | | | | | | [place] [address] | | | | | | [phone] | | | | | | | | | | | | Maintenance Foreman, [facility] | | +--------+ + + + + documented as of this encounter Visit Diagnoses Not on filedocumented in this encounter"
--- OUTSIDE RECORDS SUMMARY | ~2019-05-17 | XMS | Encounter Summary ---
Demographics + + + | Address | [address] [address] | | | [place] [address] | + + + | Home Phone | | + + + | Preferred Language | Unknown | + + + | Marital Status | | + + + | Episcopal Affiliation | 1077 | + + + | Race | Unknown | + + + | Ethnic Group | Unknown | + + + Author + + + | Author | [facility] | | | and Azana | + + + | Organization | [facility] | | | and [...] [place], [place] | | | | | [address] | | + + + + + | Helena Doherty | ECON | [place], | | | | | [place] [address] | | + + + + + Care Team Providers + +------+ + | Care Bung Driver Name | Role | Phone | + [...] [address] | | | | | [place], | [place], | | | | | [place] [address] | [place] [address] | | | | | [phone] | [phone] | | | | | | | [...] | | | | | | [place] [address] | | | | | | [phone] | | | | | | | | | | | | Liquid Natural Gas Plant OperatorNaomi | | +--------+ + + + + documented as of this encounter Visit Diagnoses Not on filedocumented in this encounter"
--- OUTSIDE RECORDS SUMMARY | ~2019-05-17 | XMS | Encounter Summary ---
Demographics + + + | Address | [address] | | | [place] [address] | + + + | Home Phone | | + + + | Preferred Language | Unknown | + + + | Marital Status | | + + + | Hinduism Affiliation | 1077 | + + + | Race | Unknown | + + + | Ethnic Group | Unknown | + + + Author + + + | Author | [facility] | | | and Azana | + + + | Organization | [facility] | | | and Azana | [...] [place], [place] | | | | | [address] | | + + + + + | Helena Doherty | ECON | [place], | | | | | [place] [address] | | + + + + + Care Team Providers + +------+ + | Care Electrophysiology Technologist Name | Role | Phone | + +------+ + | Nathan Luevano DO | PCP | | + +------+ + Encounter Details +--------+ + + + + | Date | Type | Department | Care Team | Description | +--------+ + + + + | 11/11/ | Orders Only | [facility] | Dimitri Lucas | Spinal stenosis in | | 2019 | | [address]UR[address]UR[address]ERY [address] | MD Abbi [address] | cervical region | | | | [address] | [address] [place] | (Primary Dx) | | | | [place] | [place] [address] | | | | | [address] | [phone] | | | | | [phone] | | | +--------+ + + + [...] [place] | | | | | | [place] [address] | | | | | | [phone] | | | | | | | | | | | | Gold BeaterNaomi | | +--------+ + + + + documented as of this encounter Visit Diagnoses + + | Diagnosis | + + | Spinal stenosis in cervical region - Primary | + + documented in this encounter"
--- OUTSIDE RECORDS SUMMARY | ~2019-05-17 | XMS | Encounter Summary ---
Demographics + + + | Address | [address] [facility] [facility] | | | [place] [address] | + + + | Home Phone | | + + + | Preferred Language | Unknown | + + + | Marital Status | | + + + | Scientology Affiliation | 1077 | + + + | Race | Unknown | + + + | Ethnic Group | Unknown | + + + Author + + + | Author | [facility] | | | and Azana | + + + | Organization | [facility] | | | and Azana | [...] [place], [place] | | | | | [address] | | + + + + + | Helena Doherty | ECON | [place], | | | | | [place] [address] | | + + + + + Care Team Providers + +------+ + | Care Form Setter/Driver Name | Role | Phone | + +------+ + PCP | Unavailable | + +------+ + Encounter Details +--------+ + + + + | Date | Type | Department | Care Team | Description | +--------+ + + + + | 08/27/ | Hospital | [facility] | Shahzad Andrade, | Unspecified retinal | | 1998 - | Encounter | [facility] [address] | [address] | detachment | | | | [address] | [place], [place] | | | 08/28/ | | [place], [place] | [address] | | | 1998 | | [address] | | | | | | [phone] | | | +--------+ + + + [...] | | | | | | [place] [address] | | | | | | [phone] | | | | | | | | | | | | Sane NurseNaomi | | +--------+ + + + + documented as of this encounter Visit Diagnoses + + | Diagnosis | + + | Unspecified retinal detachment | + + documented in this encounter"
--- OUTSIDE RECORDS SUMMARY | ~2019-05-17 | XMS | Encounter Summary ---
Demographics + + + | Address | [address] | | | [place] [address] | + + + | Home Phone | | + + + | Preferred Language | Unknown | + + + | Marital Status | | + + + | Islam Affiliation | 1077 | + + + | Race | Unknown | + + + | Ethnic Group | Unknown | + + + Author + + + | Author | [facility] | | | and Azana | + + + | Organization | [facility] | | | and [...] [place], [place] | | | | | [address] | | + + + + + | Helena Doherty | ECON | [place], | | | | | [place] [address] | | + + + + + Care Team Providers + +------+ + | Care Head Of Strategy Name | Role | Phone | + +------+ + | Nathan Luevano DO | PCP | | + +------+ + Reason for Visit + + + | Reason | Comments | + + + | Appointment Question | | + + + Encounter Details +--------+ + + + + | Date | Type | Department | Care Team | Description | +--------+ + + + + | 10/22/ | Telephone | [facility] | Agusto Pereira MD | Appointment Question | | 2019 | | NEUROSURGERY [address] | [address] | | | | | [address] | [place] [address] | | | | | [place] | [phone] | | | | | [address] | | | | | | [phone] | | | +--------+ + + + [...] 2019 | Encounter | | [address] | | | | | | [address] [place] | | | | | | [place] [address] | | | | | | [phone] | | | | | | | | | | | | Jet Aircraft Servicer, [facility] | | +--------+ + + + + documented as of this encounter Visit Diagnoses Not on filedocumented in this encounter"
--- OUTSIDE RECORDS SUMMARY | ~2019-05-17 | XMS | Encounter Summary ---
Demographics + + + | Address | [address] | | | [place] [address] | + + + | Home Phone | | + + + | Preferred Language | Unknown | + + + | Marital Status | | + + + | Caodaism Affiliation | Unknown | + + + | Race | White | + + + | Ethnic Group | Not or | + + + Author + + + | Author | [facility] | + + + | Organization | [facility] | + + + | Address | Unknown | + + + | Phone | Unavailable | + + + Support + + +---------+ + | Name | Relationship | Address | Phone | + + +---------+ + | Alon Santiago | ECON | Unknown | | + + +---------+ + Care Team Providers + +------+ + | Care Conveyor Belt Repairer Name | Role | Phone | + +------+ + | Thee Boss MD | PCP | | + +------+ + Encounter Details +--------+ + + + + | Date | Type | Department | Care Team | Description | +--------+ + + + + | 03/03/ | Performance Test Engineer | Rheumatology at | Rosas Lucia MD | | | 2013 | | [address] | [address] [facility] | | | | | [address] | [address] [place], | | | | | Amara Chatman Mailcode: | [place] [address] | | | | | [address] Physician's | [phone] | | | | | [address], [facility] Floor | | | | | | [place], [place] | | | | | | [address] | | | | | | [phone] | | | +--------+ + + + [...]
--- OUTSIDE RECORDS SUMMARY | ~2019-05-17 | XMS | Encounter Summary ---
Demographics + + + | Address | [address] [facility] | | | [place] [address] | + + + | Home Phone | | + + + | Preferred Language | Unknown | + + + | Marital Status | | + + + | Bahai Affiliation | 1077 | + + + | Race | Unknown | + + + | Ethnic Group | Unknown | + + + Author + + + | Author | [facility] [place] [facility] | | | and Azana | + + + | Organization | [facility] [place] [facility] | | | and [...] [place], [place] | | | | | [address] | | + + + + + | Helena Doherty | ECON | [place], | | | | | [place] [address] | | + + + + + Care Team Providers + +------+ + | Care Warehouse Traffic Supervisor Name | Role | Phone | [...] | +--------+ + + + + | 02/02/ | Telephone | [facility] | Agusto Pereira MD | Letter | | 2017 | | NEUROSURGERY [address] | [address] | | | | | [address] | [place] [address] | | | | | [place] | [phone] | | | | | [address] | | | | | | [phone] | | | +--------+ + + + [...] | 05/19/ | Hospital | Radiology | Denyns Pineda PA-C | | | 2019 | Encounter | | [address] | | | | | | [address] | | | | | | [place] [address] | | | | | | [phone] | | | | | | | | | | | | Lease Purchase Driver, [facility] | | +--------+ + + + + documented as of this encounter Visit Diagnoses Not on filedocumented in this encounter"
--- OUTSIDE RECORDS SUMMARY | ~2019-05-17 | XMS | Encounter Summary ---
Demographics + + + | Address | [address] [facility] | | | [place] [address] | + + + | Home Phone | | + + + | Preferred Language | Unknown | + + + | Marital Status | | + + + | Faith Affiliation | 1077 | + + + | Race | Unknown | + + + | Ethnic Group | Unknown | + + + Author + + + | Author | [facility] | | | and Azana | + + + | Organization | [facility] | | | and Azana [...] [place], [place] | | | | | [address] | | + + + + + | Helena Doherty | ECON | [place], | | | | | [place] [address] | | + + + + + Care Team Providers + +------+ + | Care Bmx Rider Name | Role | Phone | + +------+ + | Nathan Luevano DO | PCP | | + +------+ + Reason for Visit + + + | Reason | Comments | + + + | Procedure | | + + + | Surgery Appointment | | + + + Encounter Details +--------+ + + + + | Date | Type | Department | Care Team | Description | +--------+ + + + + | 11/13/ | Telephone | [facility] | Agusto Pereira MD | Procedure; Surgery | | 2017 | | NEUR[address]URGERY [address] | [address] | Appointment | | | | [address] [facility] [address] | [place] [address] | | | | | [place] | [phone] | | | | | [address] | | | | | | [phone] | | | +--------+ + + + [...] | | | | | [place] [address] | | | | | | [phone] | | | | | | | | | | | | Lottery Manager, [facility] | | +--------+ + + + + documented as of this encounter Visit Diagnoses Not on filedocumented in this encounter"
--- OUTSIDE RECORDS SUMMARY | ~2019-05-17 | XMS | Encounter Summary ---
Demographics + + + | Address | [address] | | | [place] [address] | + + + | Home Phone | | + + + | Preferred Language | Unknown | + + + | Marital Status | | + + + | Muslim Affiliation | 1077 | + + + | Race | Unknown | + + + | Ethnic Group | Unknown | + + + Author + + + | Author | [facility] | | | and [place]ana | + + + | Organization | [facility] | | | and [place] | + + + | Address | Unknown | + + + | Phone | Unavailable | + + + Support + + + + + | Name | Relationship | Address | Phone | + + + + + | Alon Zavaleta | KATERIN | [address] | | | | | [place], [place] | | | | | [address] | | + + + + + | Helena Doherty | ECON | [place], | | | | | [place] [address] | | + + + + + Care Team Providers + +------+ + | Care Recruiting Associate Name | Role | Phone | + +------+ + | Thee Boss MD | PCP | | + +------+ + Reason for Visit +--------+ + | Reason | Comments | +--------+ + | Other | sinus issues, hole in septum | +--------+ + Evaluate & Treat (Routine) +--------+--------+ + + + + | Status | Reason | Specialty | Diagnoses / | Referred By | Referred To | | | | | Procedures | Contact | Contact | +--------+--------+ + + + + | Closed | | Otolaryngolog | Diagnoses | Gera, | Brendan Soriano | | | | y | Epistaxis | Thee | MD Izabella [address] | | | | | Procedures | MD Phu | [address] | | | | | Office | [address] | [address] | | | | | Consult | [address] [place] | [place], | | | | | | [place] | [place] [phone] | | | | | | [address] | Phone: | | | | | | Phone: | [phone] | | | | | | [phone] | Fax: | | | | | | Fax: | [phone] | | | | | | [phone] | | +--------+--------+ + + + + Encounter Details +--------+---------+ + + + | Date | Type | Department | Care Team | Description | +--------+---------+ + + + | 10/05/ | Office | [facility] | Brendan Soriano MD | Other diseases of | | 2014 | Visit | OTOLARYNGOLOGY [address] | [address] [place] | nasal cavity and | | | | [address] | [address] [place], | sinuses(478.19) | | | | [place], [place] | [place] [id number] | (Primary Dx) | | | | [address] | [phone] | | | | | [phone] | | | +--------+---------+ + + + Social History [...] + + +---------+ + | Yes | | | | + + +---------+ [...] + + + + | Pulse | 60 | 10/05/2014 2:40 PM | | | | | PDT [...] + + + + | Weight | 90.7 kg (200 lb) | 10/05/2014 2:40 PM | | | | | PDT | | + + + + + | Height | 165.1 cm (5' 5") | 10/05/2014 2:40 PM | | | | | PDT | | + + + + + | Body Mass Index | 33.28 | 10/05/2014 2:40 PM | | | | | PDT | | + + + + + documented in this encounter Progress Notes Brendan Soriano MD - 10/05/2014 4:19 PM PDT [facility] OTOLARYNGOLOGY [address] [place] [id number] OFFICE NOTE BRENDAN SORIANO MD Patient: ASHLY ZAVALETA Admitting: MR #: [id number] LOC: PT TYPE: Adm Date: 10/05/2014 : 1940 DATE OF VISIT: 10/05/2014 The patient comes in because she is having nasal sinus problems she has had for a number o f years. Always a lot of mucus and debris that she blows out of her nose, it never seems t o go down the back of her nose. She recently was noted to have a hole in the septum. She a lways feels that there is a crusting in her nose and again, this has been going on for pro bably a couple of years. The patient, when she cleans out her nose in the morning usually has a little bit of bleeding that goes with it. Over the last few months she has also a li ttle bit of pressure up into the frontal sinus area, although she has not had any changes i n the type of mucus or debris that is coming out of her nose. Again, still nothing runnin g down the back of her throat. No fever. It is not severe pain. It is more of a pressure feeling. PHYSICAL EXAMINATION: GENERAL: Shows an alert 74-year-old female patient. She is communicating well. Her voic e quality is good. HEENT: Skin of the face, nose, ears all appear to be healthy. Parotid, submandibular gla nds are smooth. Facial movement is symmetrical, without any weakness noted. Ear canals ar e open, they are clean. The drums are clear. No middle ear effusion or abnormality noted. Nasal passages: She has a septal perforation. It is probably about a centimeter in siz e. The patient has some crusting on it. It is not particularly wide back posteriorly and patient would have less of a look of Emily's and more of a perforation of unknown cause. The patient had no other mass or lesions noted in the nasal passages. Floor of the mouth , buccal mucosa, hard palate, teeth, lips, gums are healthy. No mass seen in the oropharyn x and posterior pharyngeal wall is smooth. Tongue and soft palate are smooth and move symme trically. NECK: There were no masses or lymphadenopathy. Thyroid gland is smooth and tra angelina is midline. IMPRESSION: Septal perforation PLAN: The patient will put A and D ointment on the perforation at night and put some Dipr olene ointment on the perforation in the a.m. She will do this faithfully here for the nex t couple of months and then be re-seen at that point. If her nose is doing well, but she c ontinues to have a lot of pressure up in the sinus area, then a CT scan will be obtained. If the irritation is from the perforation and this is causing her discomfort above, hopefu lly, this will settle down with the treatment. BRENDAN SORIANO MD Dictated by BRENDAN SORIANO MD 10/05/2014 16:19:21 Transcribed on 10/06/2014 03:32:09 by svetlana job# [id number] Confirmation #: [id number] cc: THEE BOSS MD [facility], Brendan Parekh MD - 10/05/2014 4:15 PM PDTSee dictation # [id number] signed by Brendan Soriano MD at 10/05/2014 4:20 PM PDTdocumented in is encounter Plan of Treatment +--------+ + + + + | Date | Type | Specialty | Care Team | Description | +--------+ + + + + | 05/19/ | Hospital | Radiology | Dennys Pineda PA-C | | | 2019 | Encounter | | [address] [facility] | | | | | | [address] [facility] | | | | | | [place] [address] | | | | | | [phone] | | | | | | | | | | | | Lard Bleacher, [facility] | | +--------+ + + + + documented as of this encounter Visit Diagnoses + + | Diagnosis | + + | Other diseases of nasal cavity and sinuses(478.19) - Primary Other diseases of nasal | | cavity and sinuses | + + documented in this encounter
--- OUTSIDE RECORDS SUMMARY | ~2019-05-17 | XMS | Encounter Summary ---
Demographics + + + | Address | [address] | | | [place] [address] | + + + | Home Phone | | + + + | Preferred Language | Unknown | + + + | Marital Status | | + + + | Latter Day Affiliation | Unknown | + + + | Race | White | + + + | Ethnic Group | Not or | + + + Author + + + | Organization | Unknown | + + + | Address | Unknown | + + + | Phone | Unavailable | + + + Support + + +---------+ + | Name | Relationship | Address | Phone | + + +---------+ + | Alon CONKLIN | Unknown | | + + +---------+ + Care Team Providers + +------+ + | Care Sheriff'S Detective Name | Role | Phone | + +------+ + | Nathan Luevano DO | ANNAMARIA | | + +------+ + Encounter Details +--------+--------+ + + + | Date | Type | Department | Care Team | Description | +--------+--------+ + + + | 03/11/ | Travel | | | | | 2019 | | | | | +--------+--------+ + + + Social History + +-------+ [...]
--- OUTSIDE RECORDS SUMMARY | ~2019-05-17 | XMS | Encounter Summary ---
Demographics + + + | Address | [address] | | | [place] [address] | + + + | Home Phone | | + + + | Preferred Language | Unknown | + + + | Marital Status | | + + + | Scientology Affiliation | Unknown | + + + | Race | White | + + + | Ethnic Group | Not or | + + + Author + + + | Author | [facility] | + + + | Organization | [facility] | + + + | Address | Unknown | + + + | Phone | Unavailable | + + + Support + + +---------+ + | Name | Relationship | Address | Phone | + + +---------+ + | Alon Santiago | ECON | Unknown | | + + +---------+ + Care Team Providers + +------+ + | Care Personnel Generalist Manager Name | Role | Phone | + +------+ + | Thee Boss MD | PCP | | + +------+ + Reason for Visit + + + | Reason | Comments | + + + | Refill Request | Nystatin | + + + Encounter Details +--------+--------+ + + + | Date | Type | Department | Care Team | Description | +--------+--------+ + + + | 08/21/ | Refill | Rheumatology at | Tavia Zuniga | Refill Request | | 2014 | | [facility] [address] | (Nystatin) | | | | [address] | [address] | | | | | [place] Mailcode: | [place], [place] | | | | | [address] Physician's | [address] | | | | | [place], [facility] | [phone] | | | | | [place], [place] | | | | | | [address] | | | | | | [phone] | | | +--------+--------+ + + + [...]
--- OUTSIDE RECORDS SUMMARY | ~2019-05-17 | XMS | Encounter Summary ---
Demographics + + + | Address | [address] | | | [place] [address] | + + + | Home Phone | | + + + | Preferred Language | Unknown | + + + | Marital Status | | + + + | Presybeterian Affiliation | Unknown | + + + | Race | White | + + + | Ethnic Group | Not or | + + + Author + + + | Author | [facility] | + + + | Organization | [facility] | + + + | Address | Unknown | + + + | Phone | Unavailable | + + + Support + + +---------+ + | Name | Relationship | Address | Phone | + + +---------+ + | Alon Santiago | ECON | Unknown | | + + +---------+ + Care Team Providers + +------+ + | Care Engine Dispatcher Name | Role | Phone | + +------+ + | Thee Boss MD | PCP | | + +------+ + Encounter Details +--------+ + + + + | Date | Type | Department | Care Team | Description | +--------+ + + + + | 09/12/ | MyChart | Rheumatology at | Rosas Lucia MD | RE:Labs | | 2015 | Encounter | [address]ira Sen | [address] [facility] | | | | | [address] | [address] [place], | | | | | [place] Mailcode: | [place] [address] | | | | | [address]'s | [phone] | | | | | [address], [address] Floor | | | | | | [place], [place] | | | | | | [address] | | | | | | [phone] | | | +--------+ + + + [...]
--- OUTSIDE RECORDS SUMMARY | ~2019-05-17 | XMS | Encounter Summary ---
Demographics + + + | Address | [address] [facility] [facility] | | | [place] [address] | + + + | Home Phone | | + + + | Preferred Language | Unknown | + + + | Marital Status | | + + + | Roman Catholic Affiliation | 1077 | + + + | Race | Unknown | + + + | Ethnic Group | Unknown | + + + Author + + + | Author | [facility] | | | and [place]ana | + + + | Organization | [facility] | | | and Azana | [...] [place], [place] | | | | | [address] | | + + + + + | Helena Doherty | ECON | [place], | | | | | [place] [address] | | + + + + + Care Team Providers + +------+ + | Care Paver Layer Name | Role | Phone | + +------+ + | Nathan Luevano DO | PCP | | + +------+ + Reason for Visit + + + | Reason | Comments | + + + | Therapy Daily | | | Treatment | | + + + Evaluate & Treat (Routine) +--------+--------+ + + + + | Status | Reason | Specialty | Diagnoses / | Referred By | Referred To | | | | | Procedures | Contact | Contact | +--------+--------+ + + + + | Closed | | Rehabilitatio | Diagnoses | | [place], | | | | n | | Eleazar, | Aiyana S, PT | | | | | Trochanteric | Sophia K, | [address] | | | | | bursitis, | PA-C [address] | | | | | left hip | [address] | [place] | | | | | Trochanteric | Ave | [address] Phone: | | | | | bursitis, | [place], | [phone] | | | | | right hip | [place] | Fax: | | | | | Fibromyalgia | [address] | [phone] | | | | | Procedures | Phone: | | | | | | PT Noel w/ | [phone] | | | | | | Aiyana | Fax: | | | | | | [place] | [phone] | | +--------+--------+ + + + + Encounter Details +--------+---------+ + + + | Date | Type | Department | Care Team | Description | +--------+---------+ + + + | 05/23/ | Office | [facility] | Schmidtgall, | Trochanteric | | 2018 | Visit | [facility] THER[facility]Y PT | Sophia Kingsley PA-C | bursitis of both | | | | OP [address] | [address] | hips (Primary Dx); | | | | [place] | [place], [place] | Neck pain; | | | | [address] | [address] | Fibromyalgia | | | | [phone] | [phone] | | | | | | | | | | | | Aiyana Fish S, PT | | | | | | [address] | | | | | | [place] | | | | | | [address] | | | | | | | | +--------+---------+ + + + [...] + + documented as of this encounter Progress Notes Aiyana Fish, PT - 05/23/2018 12:00 PM PSTFormatting of this note might be different fro m the original. [facility] CTR THERAPY PT OP [address] [place] [address] Physical Therapy Daily Treatment Note Date: 05/23/2018 Patient Information Patient Name: Ashly Santiago Date of : 1940 Age: 78 y.o. Encounter Diagnoses Code Name Primary? M70.61, M70.62 Trochanteric bursitis of both hips Yes M54.2 Neck pain M79.7 Fibromyalgia Date of Onset: 04/10/2018 Referring Provider: Sophia Bush PA-C Rehab Precautions Office Visit from 04/17/[address] [facility] CTR THERAPY PT OP Rehab Precautions Precautions None Rehab Learning Style Office Visit from 04/17/[address] [facility] CTR THERAPY PT OP Office Visit fro m 10/19/[address] [facility] CTR THERAPY PT OP Learning Style Patient's [employer] Learning Style listening, reading, observation, performance of task lis tening, reading, observation, performance of task Start Time: 1203 Stop time: 1305 Duration: 62 minutes Timed Treatment Codes: 55 minutes # of PT Visits to Date: 4 Subjective: Pt reports that she felt benefit from the last treatment with less tension and pain for at least a couple of days Pain Assessment: Pain Rating Pre Assessment: 4 Pain Rating Post Assessment: 3 Location: low back Objective: Education: review of 4-7-8 breathing and low back exercises she was given following her jordi k surgery Exercise: Pt was given yellow theraband for UE ex at home Manual Treatment: Myofascial release and positional release therapy: Sacrum, right hip and leg, upper and mid thoracic spine, and cervical spine Assessment: Good response to treatment. Fascial release resulted in improved mobility in the thoraco-l umbar fascia and lower pain level reported to be 3/10 following the session. Plan: Pt will resume her back exercises, resume 4-7-8 breathing and start thera-band exercises Electronically signed by: Aiyana Fish, PT, 05/23/2018 14:07 Patient Name: Ashly Real Jack/: 1940/ documented in this en counter Plan of Treatment +--------+ + + + + | Date | Type | Specialty | Care Team | Description | +--------+ + + + + | 05/19/ | Hospital | Radiology | Dennys Pineda PA-C | | | 2019 | Encounter | | [address] [facility] | | | | | | [address] [facility] | | | | | | [place] [address] | | | | | | [phone] | | | | | | | | | | | | Professor Of ArchaeologyNaomi | | +--------+ + + + + documented as of this encounter Visit Diagnoses + + | Diagnosis | + + | Trochanteric bursitis of both hips - Primary Enthesopathy of hip region | + + | Neck pain Cervicalgia | + + | Fibromyalgia Mylagia and myositis, unspecified | + + documented in this encounter"
--- OUTSIDE RECORDS SUMMARY | ~2019-05-17 | XMS | Encounter Summary ---
Demographics + + + | Address | [address] | | | [place] [address] | + + + | Home Phone | | + + + | Preferred Language | Unknown | + + + | Marital Status | | + + + | Roman Catholic Affiliation | 1077 | + + + | Race | Unknown | + + + | Ethnic Group | Unknown | + + + Author + + + | Author | [facility] | | | and [place] | + + + | Organization | [facility] | | | and [place] | + + + | Address | Unknown | + + + | Phone | Unavailable | + + + Support + + + + + | Name | Relationship | Address | Phone | + + + + + | Alon Santiago | KATERIN | [address] | | | | | [place], [place] | | | | | [address] | | + + + + + | Helena Doherty | ECON | [place], | | | | | [place] [address] | | + + + + + Care Team Providers + +------+ + | Care Dobie Man Name | Role | Phone | + +------+ + | Nathan Luevano DO | PCP | | + +------+ + Reason for Referral Evaluate & Treat (Routine) +--------+ + + + + + | Status | Reason | Specialty | Diagnoses / | Referred By | Referred To | | | | | Procedures | Contact | Contact | +--------+ + + + + + | Closed | Specialty | Physical | Diagnoses | [facility], | [facility], | | | Services | Medicine and | S/P lumbar | Onesimo | Osmna Price MD | | | Required | Rehabilitatio | fusion | FABIAN Huff | [address] | | | | n | Lumbar | [address] [place] | | | | | radiculopath | [address] | [place], [place] | | | | | y Scoliosis | [address] | [address] Phone: | | | | | of lumbar | [place], | [phone] | | | | | spine, | [place] [address] | Fax: | | | | | unspecified | Phone: | [phone] | | | | | scoliosis | [phone] | | | | | | type | Fax: | | | | | | Sacroiliitis | [phone] | | | | | | ([facility]) | | | +--------+ + + + + + Reason for Visit +---------+ + | Reason | Comments | +---------+ + | Post Op | 9M PO | +---------+ + Encounter Details +--------+---------+ + + + | Date | Type | Department | Care Team | Description | +--------+---------+ + + + | 11/15/ | Office | [facility] | Onesimo Oliveira | S/P lumbar fusion | | 2018 | Visit | NEUROSURGERY [address] | [address] | (Primary Dx); Lumbar | | | | [address] | [address] | radiculopathy; | | | | [place] | [place] | Scoliosis of lumbar | | | | [address] | [address] | spine, unspecified | | | | [phone] | | scoliosis type; | | | | | | Sacroiliitis (HCC) | +--------+---------+ + + + Social History [...] + + + | Blood Pressure | 132/67 | 11/15/2017 3:35 PM | | | | | PDT | | + + + + + | Pulse | 83 | 11/15/2017 3:35 PM | | | | | PDT [...] + + + + | Weight | 87.1 kg (192 lb 0.3 | 11/15/2017 3:35 PM | | | | oz) | PDT | | + + + + + | Height | 167.6 cm (5' 6") | 11/15/2017 3:35 PM | | | | | PDT | | + + + + + | Body Mass Index | 30.99 | 11/15/2017 3:35 PM | | | | | PDT | | + + + + + documented in this encounter Progress Notes Onesimo Oliveira PA-C - 11/15/2017 3:30 PM PDTFormatting of this note might be differ ent from the original. Onesimo Oliveira PA-C [address], [address] [place] [address] FAX: [phone] NEUROSURGERY FOLLOW-UP CHIEF COMPLAINT: Chief Complaint Patient presents with Post Op 9M PO HISTORY OF PRESENT ILLNESS: The patient is a 77 y.o. female that had a L4-5 LAIF, L5-S1 TL IF for radiculopathy on 02/14/2017. She returns and overall is doing good. The patient compl ains of having burning pain when she lays flat on her back, this pain will radiate up her ba ck to her neck radiating to her left arm. The patient is still complaining of bursitis pain and she also expresses her right knee going numb. The patient has been walking as much as d irected, she is still unable to walk long distances. She is not taking pain medications at this point. The patient does take Tizanidine. The patient has had no issues with her surgica l site. The patient states she came back from a long trip to [place], her and her quach arron wheelchair assistance in the airports. She states she flew in first class so the seating h elped her with her back. CURRENT MEDICATIONS: Current Outpatient Prescriptions Medication Sig Dispense Refill Acetaminophen (TYLENOL EXTRA STRENGTH PO) Take 2 Caplet by mouth 2 times daily. BIOTIN 5000 PO Take 1 tablet by mouth Daily. Cholecalciferol (VITAMIN D-3) 2000 units CAPS Take 2,000 Units by mouth Daily. Cyanocobalamin (VITAMIN B 12 PO) Take 1,000 mcg by mouth Daily. diclofenac (VOLTAREN) 1% GEL Apply 1 g topically 2 times daily. Diphenhydramine-APAP, sleep, (TYLENOL PM EXTRA STRENGTH PO) Take 2 capsules by mouth ni emir. folic acid 1 mg tablet Take 1 mg by mouth Daily. hydroxychloroquine (PLAQUENIL) 200 mg tablet Take 200 mg by mouth Daily. losartan-hydrochlorothiazide (HYZAAR) 50-12.5 MG per tablet Take 1 tablet by mouth Lee Ann y. LYSINE PO Take by mouth. L-Lysine 50 mg daily methotrexate 2.5 mg tablet Take 10 mg by mouth Once a week. Multiple Vitamins-Minerals (PRESERVISION AREDS 2) CAPS Take 1 capsule by mouth 2 times daily. MYRBETRIQ 50 MG ER tablet Take 50 mg by mouth Daily. NALTREXONE HCL PO Take 4.5 mg by mouth Daily. Nutritional Supplements (ESTROVEN PO) Take 1 tablet by mouth Daily. raNITIdine (ZANTAC) 150 mg tablet Take 150 mg by mouth 2 times daily. tiZANidine (ZANAFLEX) 4 mg tablet Take 4 mg by mouth Daily. tolterodine (DETROL LA) 4 MG 24 hr capsule No current facility-administered medications for this visit. ALLERGIES: Allergies Allergen Reactions Tramadol Nausea Only and Other (See Comments) Insomnia, "alternating sweating and cold spells, a week of withdrawal symptoms" Codeine Nausea And Vomiting and Other (See Comments) Dizziness Diclofenac Diarrhea, Nausea Only and Other (See Comments) Headache, Acid reflux, Stomach Cramping, Bloating Diltiazem Swelling Ankle Isosorbide Mononitrate Nausea Only and Other (See Comments) Headache, Dizziness Misoprostol Diarrhea, Nausea Only and Other (See Comments) Headache, Acid reflux, Stomach Cramping, Bloating Valdecoxib Nausea Only and Other (See Comments) Dizziness Adhesive & Tape Itching and Rash Citalopram Nausea Only Duloxetine Other (See Comments) Hot flashes Escitalopram Nausea Only Esomeprazole Magnesium Nausea Only Gabapentin Nausea Only Hydromorphone Nausea Only Isosorbide Dinitrate Other (See Comments) Dizziness, headache Morphine Sulfate Nausea Only Oxycodone Nausea Only Pregabalin Swelling Ankles Solifenacin Other (See Comments) Reaction: Choking REVIEW OF SYSTEMS GENERALLY: No fever, no night sweats, no anemia, + fatigue, + recent profound weight miller ges. EYES: No eye problems, no use of corrective lenses, no eye injury, no double vision, no bl indness. EARS, NOSE, AND THROAT: No changes in taste or smell, + hearing difficulty, no ringing in the ears, no ear drainage, no dizziness, no voice changes, + difficulty swallowing, no signi ficant snoring, no sleep apnea, no sinus problems, no major dental work. NEUROLOGICALLY: Please see the review of systems discussed above in the history of present illness. In addition, the patient has numbness is arms and legs, weakness, muscle aching, change in walk, pain in neck and back, confusion. PSYCHIATRIC: No depression, no sleep disorders, no anxiety, no bipolar disorder, no psycho tic episodes. CARDIOVASCULAR: No heart attacks, no heart murmur, no heart fluttering, no chest pain, no ankle swelling. LUNG DISEASE: No shortness of breath, no cough, no tuberculosis, no bloody cough, no asth ma, no emphysema/COPD. GASTROINTESTINAL: No bowel disease, no nausea or vomiting, no rectal bleeding, no constipa tion, no stool incontinence, no liver disease, no gallbladder disease, no abdominal pain, no ulcers. KIDNEY DISEASE: No urinary frequency, no painful or difficult urination, no incontinence. ENDOCRINE: No diabetes, no thyroid disease, no osteopenia or osteoporosis, no breast drain age. SKIN: No breast lumps, no skin changes, no rashes, no itches. HEMATOLOGIC/LYMPHATIC: + enlarged lymph nodes, no easy or unusual bleeding, no personal hi story of cancer. RHEUMATOLOGIC: + joint arthritis, + rheumatoid arthritis. SOCIAL HISTORY: The patient reports that she has never smoked. She has never used smokeless tobacco. She r eports that she drinks alcohol. She reports that she does not use drugs. INTERIM PHYSICAL EXAMINATION: Blood pressure 132/67, pulse 83, height 1.676 m (5' 6"), weight 87.1 kg (192 lb 0.3 oz), no t currently . Body mass index is 30.99 kg/m. GENERAL: Ashly Santiago is in no acute distress with unlabored respirations. SPINE: The patient s incision is healing well without drainage, significant erythema, or discharge. Tenderness over bilateral SI joints and bursitis. EXTREMITIES: No lower extremity edema. NEUROLOGICAL EXAMINATION: MENTAL STATUS: The patient is awake, alert, and oriented. She follows simple and complex commands MOTOR EXAM: Motor strength is 5/5. SENSORY EXAM: The sensory examination is improved when compared to the preoperative exam. RADIOGRAPHIC REVIEW: The patient s x-rays show stable instrumentation and alignment and were reviewed with the patient today. The patient's fusion appears to be progressing nicely at this time ASSESSMENT: Encounter Diagnoses Name Primary? S/P lumbar fusion Yes Lumbar radiculopathy Scoliosis of lumbar spine, unspecified scoliosis type Sacroiliitis (HCC) Past Medical History: Diagnosis Date Abdominal pain Bulging lumbar disc Cervical radiculopathy Left Chronic pain Cough Depression Diarrhea Displacement of lumbar intervertebral disc Diverticulosis DJD (degenerative joint disease), lumbar Essential hypertension Fibromyalgia GERD (gastroesophageal reflux disease) Hard of hearing 02/12/2017 hearing aids Hx of colonoscopy 05/23/2017 cecal and sigmoid colon polyps with tubular adenoma, recall in 5 years. Hypertensive arteriosclerotic cardiovascular disease IMPAIRED VISION Incontinence of urine Intervertebral disc disorder with radiculopathy of lumbar region Leg cramps Lipoma Lumbar foraminal stenosis 08/30/2016 Osteoarthrosis Other idiopathic scoliosis, lumbar region PONV (postoperative nausea and vomiting) Precordial pain Pure hypercholesterolemia Rheumatoid arthritis(714.0) Sacroiliitis (HCC) 09/04/2012 Sjogren's syndrome (HCC) PLAN: Overall, the patient is doing well. Some of the preoperative symptoms are improved. We discussed increasing the patient s activities now allowing a 50 pound lifting restrict ion. The patient has weaned their bracing and should increase their exercise gradually as m edically tolerated. They should continue regular exercise and strengthening with the hope t hat they can avoid additional surgery. 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 We will send a referral for Dr. Beht. The patient no longer needs follow-up for this issue. They can contact us should new issue s develop. Thank you for allowing me to care for this patient. ELECTRONICALLY SIGNED BY: Onesimo Oliveira PA-C, 11/15/2017 16:22 I, Onesimo Oliveira PA-C, personally performed the services described in this documentation , as scribed by Chary Goldstein CMA in my presence, and it is both accurate and complete. Onesimo Oliveira PA-C 11/15/2017 documented in this encounter Plan of Treatment [...] | | | | | | [place] [address] | | | | | | [phone] | | | | | | | | | | | | Wine P[employer]urizer[employer]omi | | +--------+ + + + + + + +--------+ + + | Name | Type | Priori | Associated Diagnoses | Order Schedule | | | | ty | | | + + +--------+ + + | [facility] | Outpatient | Routin | S/P lumbar fusion | Ordered: 11/15/2017 | | | Referral | e | Lumbar | | | | | | radiculopathy | | | | | | Scoliosis of lumbar | | | | | | spine, unspecified | | | | | | scoliosis type | | | | | | Sacroiliitis (HCC) | | + + +--------+ + + documented as of this encounter Visit Diagnoses + + | Diagnosis | + + | S/P lumbar fusion - Primary Arthrodesis status | + + | Lumbar radiculopathy Thoracic or lumbosacral neuritis or radiculitis, unspecified | + + | Scoliosis of lumbar spine, unspecified scoliosis type | + + | Sacroiliitis (HCC) Sacroiliitis, not elsewhere classified | + + documented in this encounter
--- OUTSIDE RECORDS SUMMARY | ~2019-05-17 | XMS | Encounter Summary ---
Demographics + + + | Address | [address] | | | [place] [address] | + + + | Home Phone | | + + + | Preferred Language | Unknown | + + + | Marital Status | | + + + | Jewish Affiliation | Unknown | + + + | Race | White | + + + | Ethnic Group | Not or | + + + Author + + + | Author | [facility] | + + + | Organization | [facility] | + + + | Address | Unknown | + + + | Phone | Unavailable | + + + Support + + +---------+ + | Name | Relationship | Address | Phone | + + +---------+ + | Alon Santiago | ECON | Unknown | | + + +---------+ + Care Team Providers + +------+ + | Care Department Mgr Name | Role | Phone | + +------+ + | Thee Boss MD | PCP | | + +------+ + Encounter Details +--------+ + + + + | Date | Type | Department | Care Team | Description | +--------+ + + + + | 07/15/ | MyChart | Rheumatology at | [facility] | RE: Conrad Le | | 2014 | Encounter | Physicians Francy Donato, EDUCATION DEPARTMENT CHAIR [address] | | | | | [address] | | | | | Amara Chatman Mailcode: | [place], [place] | | | | | [address] Physician's | [id number] | | | | | Francy, [facility] Floor | [phone] | | | | | [place], [place] | | | | | | [address] | | | | | | [phone] | | | +--------+ + + + [...]
--- OUTSIDE RECORDS SUMMARY | ~2019-05-17 | XMS | Encounter Summary ---
Demographics + + + | Address | [address] [facility] [facility] [address] [facility] | | | [place] [address] | + + + | Home Phone | | + + + | Preferred Language | Unknown | + + + | Marital Status | | + + + | Protestant Affiliation | 1077 | + + + | Race | Unknown | + + + | Ethnic Group | Unknown | + + + Author + + + | Author | [facility] | | | and Azana | + + + | Organization | [facility] | | | and Azana [...] [place], [place] | | | | | [address] | | + + + + + | Helena Doherty | ECON | [place], | | | | | [place] [address] | | + + + + + Care Team Providers + +------+ + | Care Nurse Leader Name | Role | Phone | + [...] | Physical | Diagnoses | [place], | [facility] | | | Services | Therapy | S/P lumbar | Ones[facility] | [facility] | | | Required | | fusion | [facility] | | | | | Lumbar | [address] | | | | | radiculopath | [address] | | | | | y Lumbar | [address] | [place], [place] | | | | | foraminal | [place], | [address] | | | | | stenosis | [place] [address] | Phone: | | | | | Scoliosis of | Phone: | [phone] | | | | | lumbar | [phone] | Fax: | | | | | spine, | Fax: | [phone] | | | | | unspecified | [phone] | | | | | | scoliosis | | | | | | | type | | | +--------+ + + + + + Reason for Visit +---------+ + | Reason | Comments | +---------+ + | Post Op | 4W PO | +---------+ + Encounter Details +--------+---------+ + + + | Date | Type | Department | Care Team | Description | +--------+---------+ + + + | 03/14/ | Office | [facility] | Onesimo Oliveira | Lumbar radiculopathy | | 2017 | Visit | NEUROSURGERY [address] | [facility] [address] | (Primary Dx); S/P | | | | [address] | lumbar fusion; | | | | [place], [place] | [place], [place] | Lumbar foraminal | | | | [address] | [address] | stenosis; Scoliosis | | | | [phone] | | of lumbar spine, | | | | | | unspecified | | | | | | scoliosis type | +--------+---------+ + + + Social History [...] + + + | Blood Pressure | 132/73 | 03/14/2017 3:17 PM | | | | | PDT | | + + + + + | Pulse | 81 | 03/14/2017 3:17 PM | | | | | PDT [...] + + + + | Weight | 84.8 kg (187 lb) | 03/14/2017 3:17 PM | | | | | PDT | | + + + + + | Height | 167.6 cm (5' 6") | 03/14/2017 3:17 PM | | | | | PDT | | + + + + + | Body Mass Index | 30.18 | 03/14/2017 3:17 PM | | | | | PDT | | + + + + + documented in this encounter Patient Instructions Patient Instructions Oneismo Oliveira PA-C - 03/14/2017 3:00 PM PDTAt this time you m ay increase your activities allowing lifting up to 15 pounds. You may begin increasing your range of motion activities and begin weaning your lumbar brace. You may begin physical the rapy in the next 2 weeks. We will see you back in the office in 2 months with x-rays of you r lumbar spine. Today I've advised you to follow-up with your primary care provider regarding your diarrhea as well as the intermittent light headed dizziness and sweating episode she been having. I n addition I would like you to check her blood pressure at home. Today we discussed that you could begin removing your lumbar brace while you are laying in bed as well as when you are seated in a well supported chair. Please continue to use your l umbar brace at all other times documented in this encounter Progress Notes Onesimo Oliveira PA-C - 03/14/2017 3:00 PM PDTFormatting of this note might be differ ent from the original. Onesimo Oliveira PA-C [address] [facility], [address] [place], [place] [id number] FAX: NEUROSURGERY FOLLOW-UP CHIEF COMPLAINT: Chief Complaint Patient presents with Post Op 4W PO HISTORY OF PRESENT ILLNESS: The patient is a 77 y.o. female that had a lumbar fusion for r adiculopathy around 4 weeks ago. She returns and overall is doing okay. The patient compla ins of needing to get up and urinate every 2 hours. This is been an ongoing problem even pr ior to surgery. She is also noted some frequent diarrhea in the morning. She has not discu ssed this with her primary care provider. In addition the patient states that at times she will get lightheaded and a little sweaty and clammy. She has not discussed this with her pr imary care provider. She has not been checking her blood pressure. She has not passed out or nearly passed out. She denies any chest pain or shortness of breath. From a surgical st andpoint she seems to be doing better. She has been improving.. The patient has been walk ing as much as directed. She is not still taking pain medications at this point. The patie nt has had no issues with her surgical site. CURRENT MEDICATIONS: Current Outpatient Prescriptions Medication Sig Dispense Refill Acetaminophen (TYLENOL EXTRA STRENGTH PO) Take by mouth as needed. BIOTIN 5000 PO Take 1 tablet by mouth Daily. Cholecalciferol (VITAMIN D-3) 2000 units CAPS Take 2,000 Units by mouth Daily. Cyanocobalamin (VITAMIN B 12 PO) Take 1,000 mcg by mouth Daily. diclofenac (VOLTAREN) 1% GEL Apply 1 g topically 2 times daily. folic acid 1 mg tablet Take 1 [...] 1 capsule by mouth 2 times daily. NALTREXONE HCL PO Take 4.5 mg by mouth Daily. Nutritional Supplements (ESTROVEN PO) Take 1 tablet by mouth Daily. No current facility-administered medications for this visit. [...] Only Gabapentin Nausea Only Hydromorphone Nausea Only Morphine Sulfate Nausea Only Oxycodone Nausea Only Pregabalin Swelling Ankles REVIEW OF SYSTEMS GENERALLY: No fever,+ night sweats, no anemia, + fatigue, + recent profound weight change s. EYES: + eye problems, no use of corrective lenses, no eye injury, no double vision, no bli ndness. EARS, NOSE, AND THROAT: No changes in taste or smell, + hearing difficulty, no ringing in the ears, no ear drainage, + dizziness, no voice changes, + difficulty swallowing, no signif icant snoring, no sleep apnea, no sinus problems, no major dental work. NEUROLOGICALLY: Please see the review of systems discussed above in the history of present illness. In addition, the patient has muscle aching, change in walk, pain in back, tremor/ shaking. PSYCHIATRIC: No depression, + sleep disorders, no anxiety, no bipolar disorder, no psychot ic episodes. CARDIOVASCULAR: No heart attacks, no heart murmur, no heart fluttering, no chest pain, no ankle swelling. LUNG DISEASE: No shortness of breath, no cough, no tuberculosis, no bloody cough, no asth ma, no emphysema/COPD. GASTROINTESTINAL: No bowel disease, + nausea or vomiting, no rectal bleeding, no constipat ion, + stool incontinence, no liver disease, no gallbladder disease, no abdominal pain, no u lcers. KIDNEY DISEASE: No urinary frequency, no painful or difficult urination, + incontinence. ENDOCRINE: No diabetes, no thyroid disease, no osteopenia or osteoporosis, no breast drain age. SKIN: No breast lumps, no skin changes, no rashes, no itches. HEMATOLOGIC/LYMPHATIC: No enlarged lymph nodes, no easy or unusual bleeding, + personal hi story of cancer. RHEUMATOLOGIC: + joint arthritis, + rheumatoid arthritis. SOCIAL HISTORY: The patient reports that she has never smoked. She has never used smokeless tobacco. She r eports that she drinks alcohol. She reports that she does not use drugs. INTERIM PHYSICAL EXAMINATION: Blood pressure 132/73, pulse 81, height 1.676 m (5' 6"), weight 87.5 kg (193 lb), not curre ntly . Body mass index is 31.15 kg/m. GENERAL: Ashly Santiago is in no acute distress with unlabored respirations. SPINE: The patient s incisions are healing well without drainage, significant erythema, o r discharge. EXTREMITIES: No lower extremity edema. NEUROLOGICAL EXAMINATION: MENTAL STATUS: The patient is awake, alert, and oriented. She follows simple and complex commands MOTOR EXAM: Motor strength is improved. SENSORY EXAM: The sensory examination is improved when compared to the preoperative exam. RADIOGRAPHIC REVIEW: The patient s x-rays show stable instrumentation and alignment and were reviewed with the patient today. There have been no interval changes since the immediate postoperative films . Complete fusion has not yet occurred, but this is normal and would not be expected at thi s time. ASSESSMENT: Encounter Diagnoses Name Primary? 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 The patient can see some improvements but continues to recover from recent surgery. I increased the patient s activities now allowing 15 pound lifting. The patient should i ncrease range of motion activities as tolerated. I would like the patient to advance slowly with this process and discussed this at length during today's visit. I would also like the patient to continue with postoperative rehabilitation and to advance with therapy as andree lee. The patient can remove her lumbar brace while she is laying down and when she is seated in a well supported chair. She will continue to use her lumbar brace at all other times until she is seen in our office in 2 months ocean transportation intermediary pain medication does not appear to be needed. I am hoping to see improvement over the coming weeks to months and plan to continue to foll ow this patient. The patient will follow-up in clinic in around 8 weeks for re-evaluation. ELECTRONICALLY SIGNED BY: Onesimo Oliveira PA-C, 03/14/2017 15:59 documented in this encounter Plan of Treatment [...] [place] | | | | | | [place] [address] | | | | | | [phone] | | | | | | | | | | | | Pole Shaver HelperNaomi | | +--------+ + + + + + + +--------+ + + | Name | Type | Priori | Associated Diagnoses | Order Schedule | | | | ty | | | + + +--------+ + + | OUTPATIENT PT | Outpatient | Routin | S/P lumbar fusion | Ordered: 03/14/2017 | | EXTERNAL | Referral | e | Lumbar | | | | | | radiculopathy | | | | | | Lumbar foraminal | | | | | | stenosis Scoliosis | | | | | | of lumbar spine, | | | | | | unspecified | | | | | | scoliosis type | | + + +--------+ + + documented as of this encounter Results XR Lumbar Spine 2 or 3 Vw (05/16/2017 12:56 PM PST) + + | Specimen | + + | | + + + + + | Narrative | Performed At | + + + | XR LUMBAR SPINE 2 OR 3 VW 05/16/2017 12:56 PM HISTORY: Postop. | [facility] | | COMPARISON: Multiple priors. FINDINGS: There is stable | | | hardware for posterior fusion from L4 through S1 with spacer hardware | | | at these levels. The spacer hardware at L5-S1 extends to the anterior | | | borders of the vertebral bodies, as before. The hardware are intact | | | otherwise. Mild left curvature of the lumbar spine is observed. There | | | is mild to moderate spondylosis. Minimal retrolisthesis is seen of | | | L2 over L3. Mild anterolisthesis is noted of L5 over S1. There is | | | interval development of a round lytic structure in the L3 vertebral | | | body that is questionable for overlapping bowel versus a lytic | | | lesion. Bone mineralization is decreased. Vertebral body height are | | | preserved with no evidence for compression fractures. Moderate disc | | | narrowing is at L2-3. Facet joints are intact. Visualized ribs and | | | pelvic osseous structures show no acute findings. Cholecystectomy | | | clips are seen. Soft tissues are unremarkable. Mild degenerative | | | changes are visualized of the hips. IMPRESSION - Stable posterior | | | fusion from L4 through S1. Interval development of a round lytic | | | structure in the L3 vertebral body that is questionable for | | | overlapping bowel versus a lytic lesion. A repeat lumbar x-ray can be | | | obtained in one week or less. If this persists, MRI would be | | | recommended. Dictated and Signed by: Saad Noe MD | | | Electronically signed: 05/16/2017 1:09 PM | | + + + + + | Procedure Note | + + | Hong, Rad Results In - 05/16/2017 1:12 PM PST XR LUMBAR SPINE 2 OR 3 VW 05/16/2017 | | 12:56 PMHISTORY: Postop.COMPARISON: Multiple priors.FINDINGS:There is stable hardware | | for posterior fusion from L4 through S1 with spacerhardware at these levels. The spacer | | hardware at L5-S1 extends to the anteriorborders of the vertebral bodies, as before. The | | hardware are intact otherwise.Mild left curvature of the lumbar spine is observed. | | There is mild to moderatespondylosis. Minimal retrolisthesis is seen of L2 over L3. Mild | | anterolisthesisis noted of L5 over S1. There is interval development of a round lytic | | structurein the L3 vertebral body that is questionable for overlapping bowel versus | | alytic lesion. Bone mineralization is decreased. Vertebral body height arepreserved with | | no evidence for compression fractures. Moderate disc narrowing isat L2-3. Facet joints | | are intact. Visualized ribs and pelvic osseous structuresshow no acute findings. | | Cholecystectomy clips are seen. Soft tissues areunremarkable. Mild degenerative changes | | are visualized of the hips.IMPRESSION -Stable posterior fusion from L4 through | | S1.Interval development of a round lytic structure in the L3 vertebral body that | | isquestionable for overlapping bowel versus a lytic lesion. A repeat lumbar x-raycan be | | obtained in one week or less. If this persists, MRI would be recommended.Dictated and | | Signed by: Saad Noe MD Electronically signed: 05/16/2017 1:09 PM | |show no acute findings. Cholecystectomy clips are seen. Soft tissues are | |unremarkable. Mild degenerative changes are visualized of the hips. | | | |IMPRESSION - | |Stable posterior fusion from L4 through S1. | | | |Interval development of a round lytic structure in the L3 vertebral body that is | |questionable for overlapping bowel versus a lytic lesion. A repeat lumbar x-ray | |can be obtained in one week or less. If this persists, MRI would be recommended. | | | |Dictated and Signed by: Saad Noe MD | | Electronically signed: 05/16/2017 1:09 PM | + + + +---------+ + + | Performing | Address | City/State/Zipcode | Phone Number | | Organization | | | | + +---------+ + + | [facility] | | | | + +---------+ + + documented in this encounter Visit Diagnoses + + | Diagnosis | + + | Lumbar radiculopathy - Primary Thoracic or lumbosacral neuritis or radiculitis, | | unspecified | + + | S/P lumbar fusion Arthrodesis status | + + | Lumbar foraminal stenosis Spinal stenosis, lumbar region, without neurogenic | | claudication | + + | Scoliosis of lumbar spine, unspecified scoliosis type | + + documented in this encounter
--- OUTSIDE RECORDS SUMMARY | ~2019-05-17 | XMS | Encounter Summary ---
Demographics + + + | Address | [address] [facility] | | | [place] [address] | + + + | Home Phone | | + + + | Preferred Language | Unknown | + + + | Marital Status | | + + + | Judaism Affiliation | 1077 | + + + | Race | Unknown | + + + | Ethnic Group | Unknown | + + + Author + + + | Author | [facility] | | | and Azana | + + + | Organization | [facility] | | | [...] [place], [place] | | | | | [address] | | + + + + + | Helena Doherty | ECON | [place], | | | | | [place] [address] | | + + + + + Care Team Providers + +------+ + | Care Customer Service Advocate Name | Role | Phone | + +------+ + | Nathan Luevano DO | PCP | | + +------+ + Reason for Visit + + + | Reason | Comments | + + + | Medication Refill | | + + + | Post Op | PO Call | + + + Encounter Details +--------+--------+ + + + | Date | Type | Department | Care Team | Description | +--------+--------+ + + + | 02/20/ | Refill | [facility] | Agusto Pereira MD | Medication Refill; | | 2017 | | NEUROSURGERY [address] | [address] | Post Op (PO Call) | | | | [address] [facility] [address] | [place] [address] | | | | | [place] | [phone] | | | | | [address] | | | | | | [phone] | | | +--------+--------+ + + + [...] [place] | | | | | | [place] [address] | | | | | | [phone] | | | | | | | | | | | | Floor Layer TileNaomi | | +--------+ + + + + documented as of this encounter Visit Diagnoses + + | Diagnosis | + + | S/P lumbar fusion - Primary Arthrodesis status | + + documented in this encounter"
--- OUTSIDE RECORDS SUMMARY | ~2019-05-17 | XMS | Encounter Summary ---
Demographics + + + | Address | [address] [facility] | | | [place] [address] | + + + | Home Phone | | + + + | Preferred Language | Unknown | + + + | Marital Status | | + + + | Yazdanism Affiliation | 1077 | + + + | Race | Unknown | + + + | Ethnic Group | Unknown | + + + Author + + + | Author | [facility] | | | and Azana | + + + | Organization | [facility] | | | and Azana | [...] [place], [place] | | | | | [address] | | + + + + + | Helena Doherty | ECON | [place], | | | | | [place] [address] | | + + + + + Care Team Providers + +------+ + | Care Regional Sales Representative Name | Role | Phone | + +------+ + | Nathan Luevano DO | PCP | | + +------+ + Encounter Details +--------+ + + + + | Date | Type | Department | Care Team | Description | +--------+ + + + + | 10/24/ | Orders Only | [facility] | Conversion | | | 2019 | | [facility] | Transaction, | | | | | [address] [place] | Provider Unknown | | | | | [address] [place], [place] | | | | | | [address] | (Fax) | | | | | [phone] | | | +--------+ + + + [...] | | | | | [place] [address] | | | | | | [phone] | | | | | | | | | | | | Box Lining Machine Operator, [place] | | +--------+ + + + [...] | | | EXTERNAL | | | [place] | | | LAB | | + [...]
--- OUTSIDE RECORDS SUMMARY | ~2019-05-17 | XMS | Encounter Summary ---
Demographics + + + | Address | [address] | | | [place] [address] | + + + | Home Phone | | + + + | Preferred Language | Unknown | + + + | Marital Status | | + + + | Voodoo Affiliation | 1077 | + + + | Race | Unknown | + + + | Ethnic Group | Unknown | + + + Author + + + | Author | [facility] | | | and Azana | + + + | Organization | [facility] | | | and Azana [...] [place], [place] | | | | | [address] | | + + + + + | Helena Doherty | ECON | [place], | | | | | [place] [address] | | + + + + + Care Team Providers + +------+ + | Care Six Sigma Black Belt Engineer Name | Role | Phone | [...] | | | | | | | Functional | | | | | | | diarrhea | | | | | | | Age-related | | | | | | | physical | | | | | | | debility | | | | | | | Allergy | | | | | | | status to | | | | | | | narcotic | | | | | | | agent status | | | | | | | Functional | | | | | | | diarrhea | | | | | | | (K59.1) | | | | | | | advanced age | | | | | | | R54.0 | | | | | | | intolerance | | | | | | | to narcotics | | | | | | | Z88.5 | | | | | | | Procedures | | | | | | | IL | | | | | | | COLONOSCOPY | | | | | | | FLX DX | | | | | | | W/COLLJ SPEC | | | | | | | WHEN PFRMD | | | | | | | IL | | | | | | | COLONOSCOPY | | | | | | | W/BIOPSY | | | | | | | SINGLE/MULTI | | | | | | | PLE IL | | | | | | | COLSC FLX | | | | | | | W/RMVL OF | | | | | | | TUMOR POLYP | | | | | | | LESION SNARE | | | | | | | TQ IL | | | | | | | ANESTH,INTES | | | | | | | FRANKY,SCOPE,L | | | | | | | OW | | | | | | | COLONOSCOPY | | | +--------+--------+ + + + + Encounter Details +--------+ + + + + | Date | Type | Department | Care Team | Description | +--------+ + + + + | 05/23/ | Hospital | [facility] | Joshua Hilliard MD | Change in bowel | | 2017 | Encounter | [facility] | [address], [place] | habits (Primary Dx) | | | | [address] | [address] | | | | | [place] | [address] | | | | | [address] | | | | | | [phone] | | | +--------+ + + + [...] + + + | Blood Pressure | 107/51 | 05/23/2017 2:31 PM | | | | | PST | | + + + + + | Pulse | 70 | 05/23/2017 2:31 PM | | | | | PST | | + + + + + | Temperature | 36.4 C (97.5 F) | 05/23/2017 2:31 PM | | | | | PST | | + + + + + | Respiratory Rate | 14 | 05/23/2017 2:31 PM | | | | | PST | | + + + + + | Oxygen Saturation | 100% | 05/23/2017 2:31 PM | | | | | PST | | + + + + + | Inhaled Oxygen | - | - | | | Concentration | | | | + + + + + | Weight | 85 kg (187 lb 6.3 | 05/23/2017 1:03 PM | | | | oz) | PST | | + + + + + | Height | 167.6 cm (5' 6") | 05/23/2017 1:03 PM | | | | | PST | | + + + + + | Body Mass Index | 30.25 | 05/23/2017 1:03 PM | | | | | PST [...] +---------+ + + | | Take 1 capsule by | | 0 | | | | Diphenhydramine-APAP | mouth nightly. | | | | | | , sleep, (TYLENOL PM | | | | | | | EXTRA STRENGTH PO) | | | | | | [...] + + + +---------+ + + | raNITIdine | Take 150 mg by mouth | | 0 | | | | (ZANTAC) 150 mg | 2 times daily. | | | | | | tablet | | | | | | + + + +---------+ + + | Acetaminophen | Take 2 Caplet by | | 0 | | | | (TYLENOL EXTRA | mouth 2 times daily. | | | | 9 | | STRENGTH PO) | | | | | | [...] + + + +---------+ + + | mirabegron | Take 25 mg by mouth | | 0 | | | | (MYRBETRIQ) 25 mg ER | Daily. | | | | 8 | | tablet | | | | [...] + + + +---------+ + + | psyllium | Take 0.52 g by mouth | | 0 | | | | (METAMUCIL) 0.52 g | Daily. | | | | 8 | | capsule | | | | | | + + + +---------+ + + | tolterodine | | | 0 | 05/10/20 | | | (DETROL LA) 4 MG 24 | | | | 17 | 9 | | hr capsule | | | | | | + [...] ST | | | | | | [address] | | | | | | [place] [address] | | | | | | [phone] | | | | | | | | | | | | [employer], [facility] | | +--------+ + + + + documented as of this encounter Procedures + +--------+ + + + | Procedure Name | Priori | Date/Time | Associated Diagnosis | Comments | | | ty | | | | + +--------+ + + + | COLONOSCOPY | | 05/23/2017 | Functional | | | | | 1:50 PM | diarrhea (K59.1) | | | | | PST | advanced age R54.0 | | | | | | intolerance to | | | | | | narcotics Z88.5 | | + +--------+ + + + | COLONOSCOPY | Routin | 05/23/2017 | | Results for this | | | e | 12:52 PM | | procedure are in the | | | | PST | | results section. | + +--------+ + + + | SURGICAL PATHOLOGY | Routin | 05/23/2017 | | Results for this | | EXAM | e | 12:00 AM | | procedure are in the | | | | PST | | results section. | + +--------+ + + + documented in this encounter Results COLONOSCOPY (05/23/2017 12:52 PM PST) + + | Specimen | + + | | + + + + -+ | Narrative | Performed At | + + -+ | | [facility] | | GastroenterologyPatient Name: Ashly SantiagoProcedure Date: 05/23/2017 | [facility] | | 12:52 PMMRN: [id number] #: [id number] of : | | | 1940Admit Type: AmbulatoryAge: 77[facility]: [facility]Gender: FemaleNote | | | Status: FinalizedAttending MD: Joshua Hilliard , MDProcedure: | | | ColonoscopyIndications: Clinically significant diarrhea | | | of unexplained origin, Change in bowel | | | habitsProviders: Joshua Hilliard MD, Mary Abraham | | | ILIR Wahl, Wendy Szymanski, | | | Auger Machine Offbearer, Phu Manning MD (Anesthesia | | | Staff)Referring MD: Nathan Hodge DO (Referring MD)Medicines: | | | Sedation Required Anesthesia Staff | | | AssistanceComplications: No immediate complications. Estimated | | | blood loss: None.Procedure: - Prior to the procedure, a History | | | and Physical was performed, and patient medications, allergies | | | and sensitivities were reviewed. The patient's tolerance of | | | previous anesthesia was reviewed. - Prior to the procedure, a | | | History and Physical was performed, and patient medications and | | | allergies were reviewed. The patient is competent. The risks | | | and benefits of the procedure and the sedation options and | | | risks were discussed with the patient. All questions were | | | answered and informed consent was obtained. Patient identification and | | | proposed procedure were verified by the physician, the nurse, | | | the anesthesiologist and the robotics technician in the endoscopy suite. | | | Mental Status Examination: alert and oriented. Airway | | | Examination: small/crowded oropharyngeal airway and Mallampati | | | Class III (part of the uvula and soft palate visualized). | | | Prophylactic Antibiotics: The patient does not require | | | prophylactic antibiotics. Prior Anticoagulants: The patient has | | | taken no previous anticoagulant or antiplatelet agents. ASA | | | Grade Assessment: III - A patient with severe systemic disease. After | | | reviewing the risks and benefits, the patient was deemed in | | | satisfactory condition to undergo the procedure. The anesthesia | | | plan was to use monitored anesthesia care (MAC). Immediately | | | prior to administration of medications, the patient was | | | re-assessed for adequacy to receive sedatives. The heart rate, | | | respiratory rate, oxygen saturations, blood pressure, adequacy | | | of pulmonary ventilation, and response to care were monitored | | | throughout the procedure. The physical status of the patient | | | was re-assessed after the procedure. - After reviewing the risks | | | and benefits, the patient was deemed in satisfactory condition | | | to undergo the procedure. - Using IV propofol under the | | | supervision of an anesthesiologist was determined to be | | | medically necessary for this procedure based on age 65 or | | | older, severe comorbidity (greater than ASA Grade II), patient's | | | dependence on opiates, sedatives or hypnotics and patient's history | | | of problems with anesthesia. - Immediately prior to | | | administration of medications, the patient was re-assessed for | | | adequacy to receive sedatives. - The heart rate, respiratory | | | rate, oxygen saturations, blood pressure, adequacy of pulmonary | | | ventilation, and response to care were monitored throughout | | | the procedure. - The physical status of the patient was | | | re-assessed after the procedure. The Colonoscope was introduced | | | through the anus and advanced to the cecum, identified by the | | | appendiceal orifice, ileocecal valve and palpation.Findings: | | | The perianal and digital rectal examinations were normal. | | | Pertinent negatives include normal sphincter tone and no | | | palpable rectal lesions. Many small-mouthed diverticula were | | | found in the sigmoid colon. There was narrowing of the colon in | | | association with the diverticular opening. There was evidence | | | of diverticular spasm. There was no evidence of diverticular | | | bleeding. Two sessile polyps were found in the distal sigmoid | | | colon and cecum. The polyps were small in size. These polyps | | | were removed with a hot snare. Resection and retrieval were | | | complete. Verification of patient identification for the | | | specimen was done. Estimated blood loss: none. A moderate amount | | | of semi-liquid stool was found in the sigmoid colon, in the | | | descending colon, in the ascending colon and in the cecum, | | | interfering with visualization. Lavage of the area was performed using | | | copious amounts, resulting in incomplete clearance with fair | | | visualization. The exam was otherwise without abnormality. | | | The retroflexed view of the distal rectum and anal verge was | | | normal and showed no anal or rectal abnormalities. Normal | | | mucosa was found in the entire colon. Biopsies for histology were | | | taken with a cold forceps from the descending colon and sigmoid | | | colon for evaluation of microscopic colitis.Impression: | | | -Recommendation: - - Written discharge instructions were | | | provided to the patient. - Discharge patient to home | | | (ambulatory). - Mechanical soft diet for 3 days. - | | | Continue present medications. - No aspirin, ibuprofen, naproxen, | | | or other non-steroidal anti-inflammatory drugs for 7 days | | | after polyp removal. - Await pathology results. - Repeat | | | colonoscopy for surveillance based on pathology results. - | | | Return to primary care physician as previously scheduled. - | | | Telephone GI clinic for pathology results in 1 week. - Telephone | | | GI clinic if symptomatic.Joshua Hilliard MD05/23/2017 2:35:42 PMThis | | | report has been signed electronically.Number of Addenda: 0Note | | | Initiated On: 05/23/2017 12:52 PMScope Withdrawal Time: 0 hours 18 | | | minutes 8 seconds Total Procedure Duration: 0 hours 27 minutes 39 | | | seconds Scope In: 1:57:41 PMScope Out: 2:25:20 PM [facility]. | | | [facility], [address] [place] [address] | | | [phone] | | | - No aspirin, ibuprofen, naproxen, or other non-steroidal | | | anti-inflammatory drugs for 7 days after polyp removal. | | | - Await pathology results. | | | - Repeat colonoscopy for surveillance based on pathology results. | | | - Return to primary care physician as previously scheduled. | | | - Telephone GI clinic for pathology results in 1 week. | | | - Telephone GI clinic if symptomatic. | | |Joshua Hilliard MD | | |05/23/2017 2:35:42 PM | | |This report has been signed electronically. | | |Number of Addenda: 0 | | |Note Initiated On: 05/23/2017 12:52 PM | | |Scope Withdrawal Time: 0 hours 18 minutes 8 seconds | | |Total Procedure Duration: 0 hours 27 minutes 39 seconds | | |Scope In: 1:57:41 PM | | |Scope Out: 2:25:20 PM | | | [facility]. [facility], [address] [place] [address] | | | [address] | | + + -+ + +---------+ + + | Performing | Address | City/State/Zipcode | Phone Number | | Organization | | | | + +---------+ + + | [facility] | | | | + +---------+ + + Surgical Pathology Exam (05/23/2017 12:00 AM PST) + + | Specimen | + + | | + + + + + | Narrative | Performed At | + + + | SPECIMEN(S): A CECAL POLYP SPECIMEN(S): B DESCENDING COLON BIOPSY | [facility] | | SPECIMEN(S): C SIGMOID POLYP SPECIMEN SOURCE: A. CECAL POLYP B. | [facility] | | DESCENDING COLON BIOPSY C. SIGMOID POLYP CLINICAL HISTORY: K59.1 | | | (functional diarrhea), R54 (Age-related physical debility), Z88.5 | | | (Allergy status to narcotic agent status) MICROSCOPIC DESCRIPTION: | | | Histologic sections of all submitted blocks are examined by light | | | microscopy. These findings, together with the gross examination, | | | support the pathologic diagnosis. FINAL PATHOLOGIC DIAGNOSIS: A. | | | Cecal polyp: - Tubulovillous adenoma. - Negative for high grade | | | dysplasia and malignancy. B. Descending colon biopsy: - Multiple | | | fragments of benign colonic mucosa with no histopathological changes. | | | - Negative for increased inflammation, crypt architectural | | | distortion, basal layer thickening, lamina propria hyalinization | | | (ischemic change), lymphocytosis, plasmacytosis, eosinophilia, | | | granuloma formation, dysplasia and malignancy. - Negative for | | | microscopic colitis. C. Sigmoid colon polyp: - Tubular adenoma. - | | | Negative for high grade dysplasia and malignancy. [facility] | | | GROSS DESCRIPTION: Received in three parts. A. Received in formalin | | | labeled "Ashly Santiago" and "cecal polyp" on the requisition are | | | multiple yellow-morgan and yellow-brown colored fragments measuring from | | | <0.1-0.6 cm, submitted, all in (A1). B. Received in formalin labeled | | | "Ashly Santiago" and "descending colon bx" on the requisition are five | | | uklxgf-jzba-xdw tissue fragments measuring from 0.25-0.4 cm, | | | submitted, all in (B1). C. Received in formalin labeled "Ashly | | | Santiago" and "sigmoid polyp" on the requisition is a 0.3 x 0.2 x 0.2 cm | | | pink-morgan tissue fragment, submitted, all into (C1). ka:SUKHJINDER:cira | | | PERFORMING LABORATORY: Tissue processing and slide preparation were | | | performed by [employer] [address], [facility] | | | [place] [address] (Pump Mechanic: Albaro Eric M.D. CLIA#: | | | [id number]). Professional interpretation was performed by [facility] | | | [employer], [address], [place] [address] | | | (Pump Mechanic: Albaro Eric M.D.; CLIA#: [id number]). | | | Diagnostician: Alf Lobo MD Pathologist Electronically | | | Signed 05/25/2017 | | + + + + +---------+ + + | Performing | Address | City/State/Zipcode | Phone Number | | Organization | | | | + +---------+ + + | [facility] | | | | | [facility] | | | | + +---------+ + + documented in this encounter Visit Diagnoses + + | Diagnosis | + + | Change in bowel habits - Primary Other symptoms involving digestive system | + + documented in this encounter Administered Medications + +---------+ +--------+-------+--------+ | Medication Order | MAR | Action | Dose | Rate | Site | | | Action | Date | | | | + +---------+ +--------+-------+--------+ | lactated ringers (LR) infusion | New Bag | 05/23/20 | 1,000 | 100 | Right | | at 100 mL/hr, Intravenous, | | 17 1:48 | mLs | mL/hr | Arm | | CONTINUOUS, Starting 05/23/17 | | PM PST | | | | | at 1315, Pre-op | | | | | | + +---------+ +--------+-------+--------+ +---+---+ | | | +---+---+ documented in this encounter
--- OUTSIDE RECORDS SUMMARY | ~2019-05-17 | XMS | Encounter Summary ---
Demographics + + + | Address | [address] | | | [place] [address] | + + + | Home Phone | | + + + | Preferred Language | Unknown | + + + | Marital Status | | + + + | Nondenominational Affiliation | 1077 | + + + | Race | Unknown | + + + | Ethnic Group | Unknown | + + + Author + + + | Author | [facility] | | | and Azana | + + + | Organization | [facility] | | | and Azana | [...] [place], [place] | | | | | [address] | | + + + + + | Helena Doherty | ECON | [place], | | | | | [place] [address] | | + + + + + Care Team Providers + +------+ + | Care Draw Off Worker Name | Role | Phone | + +------+ + | Nathan Luevano DO | PCP | | + +------+ + Reason for Visit + + + | Reason | Comments | + + + | Neck Pain | | + + + | Neck Stiffness | | + + + | Coordination Of Care | PCP | + + + Encounter Details +--------+ + + + + | Date | Type | Department | Care Team | Description | +--------+ + + + + | 09/03/ | Telephone | [facility] | Agusto Pereira MD | Neck Pain; Neck | | 2018 | | NEUROSURGERY [address] | [address] | Stiffness; | | | | [address] | [place] [address] | Coordination Of Care | | | | [place] | [phone] | (PCP) | | | | [address] | | | | | | [phone] | | | +--------+ + + + [...] 2019 | Encounter | | [address] [facility] | | | | | | [address] | | | | | | [place] [address] | | | | | | [phone] | | | | | | | | | | | | Manager Of RecruitingNaomi | | +--------+ + + + + documented as of this encounter Visit Diagnoses Not on filedocumented in this encounter"
--- OUTSIDE RECORDS SUMMARY | ~2019-05-17 | XMS | Encounter Summary ---
Demographics + + + | Address | [address] | | | [place] [address] | + + + | Home Phone | | + + + | Preferred Language | Unknown | + + + | Marital Status | | + + + | Presybeterian Affiliation | 1077 | + + + | Race | Unknown | + + + | Ethnic Group | Unknown | + + + Author + + + | Author | [facility] | | | and Azana | + + + | Organization | [facility] | | | and Azana [...] [place], [place] | | | | | [address] | | + + + + + | Helena Doherty | ECON | [place], | | | | | [place] [address] | | + + + + + Care Team Providers + +------+ + | Care Recruitment Assistant Name | Role | Phone | + +------+ + | Nathan Luevano DO | PCP | | + +------+ + Encounter Details +--------+ + + + + | Date | Type | Department | Care Team | Description | +--------+ + + + + | 06/26/ | Abstract | [facility] | Agusto Pereira MD | | | 2019 | | NEUROSURGERY [address] | [address] | | | | | [address] | [place] [address] | | | | | [place], [place] | [phone] | | | | | [address] | | | | | | [phone] | | | +--------+ + + + [...] | | | | | [place] [address] | | | | | | [phone] | | | | | | | | | | | | Operations Inspector, [facility] | | +--------+ + + + + documented as of this encounter Visit Diagnoses Not on filedocumented in this encounter"
--- OUTSIDE RECORDS SUMMARY | ~2019-05-17 | XMS | Encounter Summary ---
Demographics + + + | Address | [address] | | | [place] [address] | + + + | Home Phone | | + + + | Preferred Language | Unknown | + + + | Marital Status | | + + + | Christianity Affiliation | 1077 | + + + | Race | Unknown | + + + | Ethnic Group | Unknown | + + + Author + + + | Author | [facility] | | | and Azana | + + + | Organization | [facility] | | | and [place]ana | [...] [place], [place] | | | | | [address] | | + + + + + | Helena Doherty | ECON | [place], | | | | | [place] [address] | | + + + + + Care Team Providers + +------+ + | Care Gear Shaper Set Up Operator Name | Role | Phone | + +------+ + | Thee Boss MD | PCP | | + +------+ + Reason for Visit +--------+ + | Reason | Comments | +--------+ + | Other | to discuss post injection form | +--------+ + Encounter Details +--------+ + + + + | Date | Type | Department | Care Team | Description | +--------+ + + + + | 10/16/ | Telephone | [facility] | Wendy Mitchell | Other (to discuss | | 2012 | | PH[address]SIATRY [address] | [place] [address] | post injection form) | | | | [place] [address], | [address] | | | | | [place] [address] | [place] [address] | | | | | [phone] | [phone] | | | | | | | [...] | | | | | | [place] [address] | | | | | | [phone] | | | | | | | | | | | | Pipelines SuperintendentNaomi | | +--------+ + + + + documented as of this encounter Visit Diagnoses Not on filedocumented in this encounter"
--- OUTSIDE RECORDS SUMMARY | ~2019-05-17 | XMS | Encounter Summary ---
Demographics + + + | Address | [address] | | | [place] [address] | + + + | Home Phone | | + + + | Preferred Language | Unknown | + + + | Marital Status | | + + + | Church Affiliation | 1077 | + + + | Race | Unknown | + + + | Ethnic Group | Unknown | + + + Author + + + | Author | [facility] | | | and Azana | + + + | Organization | [facility] | | | and [...] [place], [place] | | | | | [address] | | + + + + + | Helena Doherty | ECON | [place], | | | | | [place] [address] | | + + + + + Care Team Providers + +------+ + | Care Fabric Worker Fitter Name | Role | Phone | + [...] + + | 10/16/ | Telephone | [facility] | Wendy Mitchell | Other (to discuss | | 2012 | | PHYSIATRY [address] | [place] [address] | post injection form) | | | | [place], | [address] | | | | | [place] [address] | [place] [address] | | | | | [phone] | [phone] | | | | | | | [...] | | | | | | [place] [address] | | | | | | [phone] | | | | | | | | | | | | Basketball AssemblerNaomi | | +--------+ + + + + documented as of this encounter Visit Diagnoses Not on filedocumented in this encounter"
--- OUTSIDE RECORDS SUMMARY | ~2019-05-17 | XMS | Encounter Summary ---
Demographics + + + | Address | [address] | | | [place] [address] | + + + | Home Phone | | + + + | Preferred Language | Unknown | + + + | Marital Status | | + + + | Sikhism Affiliation | 1077 | + + + | Race | Unknown | + + + | Ethnic Group | Unknown | + + + Author + + + | Author | [facility] | | | and Azana | + + + | Organization | [facility] | | | and Azana [...] [place], [place] | | | | | [address] | | + + + + + | Helena Doherty | ECON | [place], | | | | | [place] [address] | | + + + + + Care Team Providers + +------+ + | Care Licensed Loan Officer Name | Role | Phone | + +------+ + | Nathan Luevano DO | PCP | | + +------+ + Encounter Details +--------+ + + + + | Date | Type | Department | Care Team | Description | +--------+ + + + + | 03/06/ | Orders Only | [facility] | Agusto Pereira MD | S/P lumbar fusion | | 2017 | | NEUROSURGERY [address] | [address] | (Primary Dx) | | | | [address] | [place] [address] | | | | | [place] | [phone] | | | | | [address] | | | | | | [phone] | | | +--------+ + + + [...] | | | | | | [place] [address] | | | | | | [phone] | | | | | | | | | | | | Exchange Specialist, Naomi | | +--------+ + + + + documented as of this encounter Results XR Lumbar Spine 2 or 3 Vw (03/14/2017 2:18 PM PDT) + + | Specimen | + + | | + + + + + | Narrative | Performed At | + + + | XR LUMBAR SPINE 2 OR 3 VW 03/14/2017 2:18 PM HISTORY: s/p lumbar | [facility] | | fusion. COMPARISON: Multiple priors. FINDINGS: There is | | | stable hardware for posterior fusion from L4 through S1 with spacer | | | hardware at these levels. The spacer hardware at L5-S1 extends to the | | | anterior borders of the vertebral bodies, as before. The hardware are | | | intact otherwise. Mild left curvature of the lumbar spine is | | | observed. There is mild to moderate spondylosis. Minimal | | | retrolisthesis is seen of L2 over L3. Mild anterolisthesis is noted | | | of L5 over S1. Bone mineralization is decreased. Vertebral body height | | | are preserved with no evidence for compression fractures. Moderate | | | disc narrowing is at L2-3. Facet joints are intact. Visualized ribs | | | and pelvic osseous structures show no acute findings. Cholecystectomy | | | clips are seen. Soft tissues are unremarkable. Mild degenerative | | | changes are visualized of the hips. IMPRESSION - Stable posterior | | | fusion from L4 through S1. Dictated and Signed by: Saad Noe | | | Electronically signed: 03/14/2017 2:36 PM | | + + + + + | Procedure Note | + + | Hong, Rad Results In - 03/14/2017 2:39 PM PDT XR LUMBAR SPINE 2 OR 3 VW 03/14/2017 | | 2:18 PMHISTORY: s/p lumbar fusion.COMPARISON: Multiple priors.FINDINGS:There is stable | | hardware for posterior fusion from L4 through S1 with spacerhardware at these levels. | | The spacer hardware at L5-S1 extends to the anteriorborders of the vertebral bodies, as | | before. The hardware are intact otherwise.Mild left curvature of the lumbar spine is | | observed. There is mild to moderatespondylosis. Minimal retrolisthesis is seen of L2 | | over L3. Mild anterolisthesisis noted of L5 over S1. Bone mineralization is decreased. | | Vertebral body heightare preserved with no evidence for compression fractures. Moderate | | discnarrowing is at L2-3. Facet joints are intact. Visualized ribs and pelvicosseous | | structures show no acute findings. Cholecystectomy clips are seen. Softtissues are | | unremarkable. Mild degenerative changes are visualized of the hips.IMPRESSION -Stable | | posterior fusion from L4 through S1.Dictated and Signed by: Saad Noe MD | | Electronically signed: 03/14/2017 2:36 PM | |are preserved with no evidence for compression fractures. Moderate disc | |narrowing is at L2-3. Facet joints are intact. Visualized ribs and pelvic | |osseous structures show no acute findings. Cholecystectomy clips are seen. Soft | |tissues are unremarkable. Mild degenerative changes are visualized of the hips. | | | |IMPRESSION - | |Stable posterior fusion from L4 through S1. | | | |Dictated and Signed by: Saad Noe MD | | Electronically signed: 03/14/2017 2:36 PM | + + + +---------+ + [...]
--- OUTSIDE RECORDS SUMMARY | ~2019-05-17 | XMS | Encounter Summary ---
Demographics + + + | Address | [address] | | | [place] [address] | + + + | Home Phone | | + + + | Preferred Language | Unknown | + + + | Marital Status | | + + + | Temple Affiliation | Unknown | + + + | Race | White | + + + | Ethnic Group | Not or | + + + Author + + + | Author | [facility] | + + + | Organization | [facility] | + + + | Address | Unknown | + + + | Phone | Unavailable | + + + Support + + +---------+ + | Name | Relationship | Address | Phone | + + +---------+ + | Alon Santiago | ECON | Unknown | | + + +---------+ + Care Team Providers + +------+ + | Care Biochemical Development Engineer Name | Role | Phone | + +------+ + | Nathan Luevano | PCP | | + +------+ + Encounter Details +--------+ + + + + | Date | Type | Department | Care Team | Description | +--------+ + + + + | 06/14/ | Hospital | Diagnostic | | | | 2014 | Encounter | Radiology at [facility] | | | | | | [address] | | | | | | [place] Mailcode: | | | | | | [address] [facility] | | | | | | [place], | | | | | | [place] [address] | | | | | | [phone] | | | +--------+ + + + [...] + + documented as of this encounter Medications at Time of Discharge + + + +---------+--------+ + | Medication | Sig | Dispensed | Refills | Start | End Date | | | | | | Date | | + + + +---------+--------+ + | cholecalciferol, | Take 5,000 Units by | | 0 | | | | Vitamin D3, 1,000 | mouth once daily in | | | | | | unit oral tablet | the evening. | | | | | + + + +---------+--------+ + | ranitidine | Take 150 mg by mouth | | 0 | | | | (ZANTAC) 150 mg Oral | as needed. | | | | | | tablet | | | | | | + + + +---------+--------+ + documented as of this encounter Plan of Treatment Not on filedocumented as of this encounter Procedures + +--------+ + + + | Procedure Name | Priori | Date/Time | Associated Diagnosis | Comments | | | ty | | | | + +--------+ + + + | X-RAY SPINE | Routin | 06/14/2015 | Rheumatoid | Results for this | | LUMBOSACRAL 2 VIEWS | e | 1:49 PM | arthritis (HCC) | procedure are in the | | | | PST | | results section. | + +--------+ + + + documented in this encounter Results X-RAY SPINE LUMBOSACRAL 2 VIEWS (06/14/2015 1:49 PM PST) + + + + + + | Component | Value | Ref Range | Performed | Pathologist | | | | | At | Signature | + + + + + + | SPINE | STUDY: SPINE LUMBOSACRAL | | | | | LUMBOSACRAL | 2 VIEWS 06/14/15 | | | | | 2 VIEWS | 13:49:00 HISTORY: Pain | | | | | | COMPARISON: None | | | | | | FINDINGS:There is no | | | | | | fracture or focal | | | | | | osseous destruction. | | | | | | Vertebral body heights | | | | | | aremaintained. There is | | | | | | 5 mm of retrolisthesis | | | | | | L2-3. Levoscoliosis of | | | | | | the lumbarspine is | | | | | | present centered at | | | | | | L4-L5 measuring 15 | | | | | | degrees. There is | | | | | | diffuseosteopenia. There | | | | | | is diffuse moderate | | | | | | disc height loss and | | | | | | endplate spurring.There | | | | | | is lower lumbar facet | | | | | | arthropathy. The SI | | | | | | joints are maintained. | | | | | | There isno soft tissue | | | | | | abnormality. IMPRESSION: | | | | | | Moderate degenerative | | | | | | disc disease throughout | | | | | | the lumbar spine. L2-3 | | | | | | retrolisthesis and | | | | | | lumbar levoscoliosis. | | | | | | Lower lumbar facet | | | | | | arthropathy. Diffuse | | | | | | osteopenia. Attending | | | | | | Radiologists: RICHIE | | | | | | KELLIE MDAuthor: | | | | | | YANA RIVERA MD I | | | | | | personally reviewed the | | | | | | images and, if | | | | | | necessary, edited the | | | | | | report. I agreewith the | | | | | | report as now presented. | | | | | | | | | | | | Final/Electronically | | | | | | signed / RICHIE | | | | | | KELLIE 06/14/2015 | | | | | | 14:16 PM | | | | + + + + + + + + | Specimen | + + | | + + + +---------+ + + | Performing | Address | City/State/Zipcode | Phone Number | | Organization | | | | + +---------+ + + | [facility] | | | | | RADIOLOGY | | | | + +---------+ + + documented in this encounter Visit Diagnoses + + | Diagnosis | + + | Rheumatoid arthritis (HCC) | + + documented in this encounter"
--- OUTSIDE RECORDS SUMMARY | ~2019-05-17 | XMS | Encounter Summary ---
Demographics + + + | Address | [address] | | | [place] [address] | + + + | Home Phone | | + + + | Preferred Language | Unknown | + + + | Marital Status | | + + + | Gnosticism Affiliation | Unknown | + + + | Race | White | + + + | Ethnic Group | Not or | + + + Author + + + | Author | [facility] | + + + | Organization | [facility] | + + + | Address | Unknown | + + + | Phone | Unavailable | + + + Support + + +---------+ + | Name | Relationship | Address | Phone | + + +---------+ + | Alon Santiago | ECON | Unknown | | + + +---------+ + Care Team Providers + +------+ + | Care Dredge Runner Name | Role | Phone | + +------+ + | Thee Boss MD | PCP | | + +------+ + Encounter Details +--------+ + + + + | Date | Type | Department | Care Team | Description | +--------+ + + + + | 10/28/ | MyChart | Rheumatology at | Rosas Lucia MD | RE: Plaquinal | | 2014 | Encounter | [facility] [place] | [address] | (Hydroxychloroquine) | | | | [address] | [address] [place], | 200 mg | | | | [place] Mailcode: | [place] [address] | | | | | [address] [facility] | [phone] | | | | | [address], [address] | | | | | | [place], [place] | | | | | | [address] | | | | | | [phone] | | | +--------+ + + + [...]
--- OUTSIDE RECORDS SUMMARY | ~2019-05-17 | XMS | Encounter Summary ---
Demographics + + + | Address | [address] | | | [place] [address] | + + + | Home Phone | | + + + | Preferred Language | Unknown | + + + | Marital Status | | + + + | Zoroastrian Affiliation | 1077 | + + + | Race | Unknown | + + + | Ethnic Group | Unknown | + + + Author + + + | Author | [facility] | | | and Azana | + + + | Organization | [facility] | | | and Azana | [...] [place], [place] | | | | | [address] | | + + + + + | Helena Doherty | ECON | [place], | | | | | [place] [address] | | + + + + + Care Team Providers + +------+ + | Care Director Of Event Management Name | Role | Phone | + +------+ + | Nathan Luevano DO | PCP | | + +------+ + Encounter Details +--------+ + + + + | Date | Type | Department | Care Team | Description | +--------+ + + + + | 10/26/ | Hospital | [facility] | Agusto Pereira MD | Back pain, | | 2017 | Encounter | MED CTR XRAY [address] | unspecified back | | | | [place] | [place] [address] | location, | | | | [place] [address] | [phone] | unspecified back | | | | [phone] | | pain laterality, | | | | | | unspecified | | | | | | chronicity | +--------+ + + + + Social [...] + + + +---------+ + + | busPIRone (BUSPAR) | Take 7.5 mg by mouth | | 0 | | | | 7.5 MG tablet | 2 times daily. | | | | 7 | + + + +---------+ + + [...] + + + +---------+ + + | fish oil 1,000 mg | Take 1,000 mg by | | 0 | | | | capsule | mouth Daily. | | | | 7 | + + + +---------+ + + | folic acid 1 mg | Take 1 mg by mouth | | 0 | | | | tablet | Daily. | | | | 9 | + + + +---------+ + + | gabapentin | Take 300 mg by mouth | | 0 | 10/18/19 | | | (NEURONTIN) 100 mg | 3 times daily. | | | 17 | 7 | | capsule | | | | | | + + + +---------+ + + | Lysine 500 MG CAPS | Take 1 capsule by | | 0 | | | | | mouth Daily. | | | | 7 | + + + +---------+ + + [...] | | | | | [place] [address] | | | | | | [phone] | | | | | | | | | | | | Fish PackerNaomi | | +--------+ + + + + documented as of this encounter Procedures + +--------+ + + + | Procedure Name | Priori | Date/Time | Associated Diagnosis | Comments | | | ty | | | | + +--------+ + + + | XR LUMBAR SPINE 4 + | Routin | 10/26/2016 | Back pain, | Results for this | | VW | e | 2:35 PM | unspecified back | procedure are in the | | | | PDT | location, | results section. | | | | | unspecified back | | | | | | pain laterality, | | | | | | unspecified | | | | | | chronicity | | + +--------+ + + + documented in this encounter Results XR Lumbar Spine 4 + Vw (10/26/2016 2:35 PM PDT) + + | Specimen | + + | | + + + + + | Narrative | Performed At | + + + | XR LUMBAR SPINE 4 + VW 10/26/2016 2:35 PM HISTORY: Back pain. | [facility] | | COMPARISON: Multiple priors. FINDINGS: There is moderate left | [facility] | | curvature of the lumbar spine. Minimal retrolisthesis is noted of L2 | [facility] | | over L3 with no instability. Bone mineralization is decreased. | - IMAGING | | Vertebral body height are preserved with no evidence for compression | | | fractures. Mild to moderate disc narrowing are at multiple levels. | | | Multilevel facet sclerosis and hypertrophy are seen. Visualized ribs | | | and pelvic osseous structures show no acute findings. There is | | | minimal atherosclerosis. Cholecystectomy clips are noted. Mild | | | degenerative changes are present of the hips. IMPRESSION - | | | Degenerative changes, no instability. Dictated and Signed by: | | | Saad Noe MD Electronically signed: 10/26/2016 3:15 PM | | + + + + + | Procedure Note | + + | Hong, Rad Results In - 10/26/2016 3:18 PM PDT XR LUMBAR SPINE 4 + VW 10/26/2016 2:35 PM | | | | HISTORY: Back pain. | | | | COMPARISON: Multiple priors. | | | | FINDINGS: | | There is moderate left curvature of the lumbar spine. Minimal retrolisthesis is | | noted of L2 over L3 with no instability. Bone mineralization is decreased. | | Vertebral body height are preserved with no evidence for compression fractures. | | Mild to moderate disc narrowing are at multiple levels. Multilevel facet | | sclerosis and hypertrophy are seen. Visualized ribs and pelvic osseous | | structures show no acute findings. There is minimal atherosclerosis. | | Cholecystectomy clips are noted. Mild degenerative changes are present of the | | hips. | | | | IMPRESSION - | | Degenerative changes, no instability. | | | | Dictated and Signed by: Saad Noe MD | | Electronically signed: 10/26/2016 3:15 PM | + + + + + + + | Performing | Address | City/State/Zipcode | Phone Number | | Organization | | | | + + + + + | [facility] [address] | [address] | [place] | [phone] | | [facility] | | [address] | | | - IMAGING | | | | + + + + + documented in this encounter Visit Diagnoses + + | Diagnosis | + + | Back pain, unspecified back location, unspecified back pain laterality, unspecified | | chronicity | + + documented in this encounter"
--- OUTSIDE RECORDS SUMMARY | ~2019-05-17 | XMS | Encounter Summary ---
Demographics + + + | Address | [address] | | | [place] [address] | + + + | Home Phone | | + + + | Preferred Language | Unknown | + + + | Marital Status | | + + + | Hinduism Affiliation | Unknown | + + + | Race | White | + + + | Ethnic Group | Not or | + + + Author + + + | Author | [facility] | + + + | Organization | [facility] | + + + | Address | Unknown | + + + | Phone | Unavailable | + + + Support + + +---------+ + | Name | Relationship | Address | Phone | + + +---------+ + | Alon Santiago | ECON | Unknown | | + + +---------+ + Care Team Providers + +------+ + | Care Pulley Worker Name | Role | Phone | + +------+ + | Thee Boss MD | PCP | | + +------+ + Reason for Visit + + + | Reason | Comments | + + + | Pain | | + + + | Medication | | | management | | + + + Encounter Details +--------+---------+ + + + | Date | Type | Department | Care Team | Description | +--------+---------+ + + + | 09/01/ | Office | Rheumatology at | [facility]un[facility] | Fibromyalgia | | 2013 | Visit | [facility] | [place] [phone] | (Primary Dx); | | | | [address] | [address] | Rheumatoid | | | | [address] Mailcode: | [place], [place] | arthritis([phone]) | | | | [address] [facility] | [phone] | ([facility]); Opiate use; | | | | [place], [address] | [phone] | 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[place], [place]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; | | | | [phone] | | 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 | +--------+---------+ + + + Social History [...] + + + | Blood Pressure | 130/64 | 09/01/2013 1:34 PM | | | | | PDT | | + + + + + | Pulse | 80 | 09/01/2013 1:34 PM | | | | | PDT | | + + + + + | Temperature | - | - | | + + + + + | Respiratory Rate | - | - | | + + + + + | Oxygen Saturation | 97% | 09/01/2013 1:34 PM | | | | | PDT | | + + + + + | Inhaled Oxygen | - | - | | | Concentration | | | | + + + + + | Weight | 90.1 kg (198 lb 11.2 | 09/01/2013 1:34 PM | | | | oz) | PDT | | + + + + + | Height | - | - | | + + + + + | Body Mass Index | 33.07 | 04/07/2013 2:16 PM | | | | | PDT | | + + + + + documented in this encounter Patient Instructions Patient Instructions Tavia Sandoval - 09/01/2013 2:08 PM PDTFormatting of this n ote might be different from the original. Counter resistance straps for the elbow pain in addition to the exercises. buprenorphine (transdermal) Pronunciation: ORLANDO melo Brand: Butaidan What is the most important information I should know about this drug? You should not use buprenorphine if you are allergic to it, or if you have a severe breathi ng disorder such as asthma, or a bowel obstruction called paralytic ileus. Never wear more than 1 buprenorphine skin patch at a time unless your doctor has told you t o. Do not expose the skin patch to heat while you are wearing it. Heat can increase the amount of drug you absorb through your skin and may cause harmful effects. Call your doctor at once if you have weak or shallow breathing, snoring that is new or unus ual, slow heart rate, confusion, severe dizziness, seizure, or feeling like you might pass o ut. Avoid letting another person handle your buprenorphine skin patches. Keep both used and unu sed patches out of the reach of children or pets. The amount of buprenorphine in a used skin patch could be fatal to a child or pet who accidentally sucks or chews on it. Seek emergenc y medical attention if this happens. Do not stop using buprenorphine suddenly, or you could have unpleasant withdrawal symptoms. Ask your doctor how to avoid withdrawal symptoms when you stop using buprenorphine. What is this drug? Buprenorphine is an opioid pain medication. An opioid is sometimes called a narcotic. Buprenorphine transdermal (skin patch) is used to treat moderate to severe chronic pain whe n treatment is needed around the clock. Buprenorphine is not for treating pain just after surgery, or for treating occasional short -term pain. Buprenorphine transdermal may also be used for purposes not listed in this medication guide . What should I discuss with my health care provider before using this drug? You should not use buprenorphine if you are allergic to it, or if you have: asthma or severe breathing disorder; or a bowel obstruction called paralytic ileus. Do not use buprenorphine if you have used an MAO inhibitor such as furazolidone (Furoxone), isocarboxazid (Marplan), phenelzine (Nardil), rasagiline (Azilect), selegiline (Eldepryl, E msam, Zelapar), or tranylcypromine (Parnate) in the last 14 days. Serious, life threatening side effects can occur if you use buprenorphine before the MAO inhibitor has cleared from yo ur body. To make sure you can safely use buprenorphine, tell your doctor if you have any of these ot her conditions: COPD (chronic obstructive pulmonary disease), sleep apnea, or other breathing disorders; a personal or family history of Long QT syndrome: hepatitis B or C; liver or kidney disease; a thyroid disorder; gallbladder disease; curvature of the spine; a history of head injury or brain tumor; epilepsy or other seizure disorder; Weld's disease or other adrenal gland disorders; enlarged prostate, urination problems; depression or other mental illness; or a history of drug or alcohol addiction. Buprenorphine may be habit-forming and should be used only by the person it was prescribed for. Never share buprenorphine with another person, especially someone with a history of anupam g abuse or addiction. Keep the medication in a place where others cannot get to it. FDA category C. It is not known whether buprenorphine will harm an unborn baby. T ell your doctor if you are or plan to become while using this medication. Buprenorphine can pass into breast milk and may harm a nursing baby. You should not breast- feed while you are using buprenorphine. Your dose needs may be different if you have recently used an opioid pain medicine and your body is tolerant to it. Opioids include Tylenol #3, Lortab, Vicodin, Exalgo, OxyContin, Per cocet, Actiq, Duragesic, Methadose, Dolophine, [place], MS Contin, Oramorph, Opana, and many others. Talk with your doctor if you are not sure you are opioid-tolerant. How should I use this drug? Use exactly as prescribed. Never use buprenorphine in larger amounts, or for longer than re commended by your doctor. Follow the directions on your prescription label. Tell your doctor if the medicine seems to stop working as well in relieving your pain. This medication comes with patient instructions for safe and effective use. Follow these di rections carefully. Ask your doctor or pharmacist if you have any questions. If you are switching to buprenorphine transdermal from another narcotic pain medicine, you may need to slowly stop using the other medicine. Follow your doctor's instructions. Apply the skin patch only to clean, dry skin. Use only clear water to wash the skin before you apply a skin patch. Soaps or other chemicals could increase the amount of buprenorphine your skin absorbs. Apply the patch to a flat and hairless area of the chest, back, side, or outer side of your upper arm. Wear the patch around the clock for 7 days. Never wear more than 1 buprenorphine skin patch at a time unless your doctor has told you to. Do not use a buprenorphine transdermal skin patch if it has been cut or damaged. After removing a skin patch fold it in half, sticky side in, and flush the patch down the t oilet or use the Patch-Disposal Unit provided with this medication. Apply a new patch to a d ifferent skin area on the chest, back, side, or upper arm. Do not use the same skin area twi ce in a row. Never share this medication with another person, even if they have the same symptoms you quach ve. Ask your doctor how to avoid withdrawal symptoms when you stop using buprenorphine. Keep both used and unused buprenorphine skin patches out of the reach of children or pets. The amount of buprenorphine in a used skin patch could be fatal to a child or pet who accide ntally sucks or chews on the patch. Seek emergency medical attention if this happens. Keep track of how many skin patches have been used from each new package of this medication . Buprenorphine is a drug of abuse and you should be aware if any person in the household is using this medicine improperly or without a prescription. Store at room temperature. Keep each patch in its foil pouch until you are ready to use it. What happens if I miss a dose? If you forget to change a patch on your scheduled day, remove the patch and apply a new one as soon as you remember. Do not wear extra patches to make up a missed dose. What happens if I overdose? Seek emergency medical attention or call the Poison Help line at . The amount of buprenorphine in a used or unused skin patch can be fatal to a child who accidentally garza cks or chews on the patch. Overdose symptoms may include extreme drowsiness, weak or limp feeling, weak pulse, cold an d clammy skin, fainting, shallow breathing, snoring, or breathing that stops. What should I avoid while using this drug? Do not drink alcohol or you may have serious, life-threatening side effects. This medication may impair your thinking or reactions. Avoid driving or operating machinery until you know how buprenorphine will affect you. Do not expose the skin patch to heat while you are wearing it. This includes a hot tub, hea ting pad, electric blanket, sauna, heated water bed, or a hot bath. Avoid exposure to sunlig ht or tanning beds. Heat can increase the amount of drug you absorb through your skin and ma y cause harmful effects. Avoid letting another person handle your buprenorphine skin patches. If the sticky side of a skin patch comes into contact with another person, wash the skin with clear water and seek medical care at once. What are the possible side effects of this drug? Get emergency medical help if you have any of these signs of an allergic reaction: hives; d ifficult breathing; swelling of your face, lips, tongue, or throat. Stop using buprenorphine and call your doctor at once if you have a serious side effect suc h as: slow heart rate, weak or shallow breathing, deep sighs, snoring that is new or unusual; confusion, severe dizziness, feeling like you might pass out; blisters, swelling, or severe irritation where the patch was worn; seizure (convulsions); or nausea, upper stomach pain, itching, loss of appetite, dark urine, real-colored stools, jaundice (yellowing of the skin or eyes). Less serious side effects may include: headache; vomiting, dry mouth, upset stomach, constipation; mild dizziness or drowsiness; or redness, itching, or mild skin rash where the patch was worn. This is not a complete list of side effects and others may occur. Call your doctor for medi [facility] advice about side effects. You may report side effects to FDA at 2-392-KRT-2262. What other drugs will affect this drug? Tell your doctor if you regularly use other medicines that can make you sleepy or slow your breathing (such as cold or allergy medicine, sedatives, anti-nausea medicine, other narcoti c pain medicines, sleeping pills, muscle relaxers, heart rhythm medications, and medicine fo r seizures, depression, or anxiety). They can add to the side effects of buprenorphine and d angerous side effects may result. dexamethasone (Decadron, Hexadrol); Jackson's wort; rifabutin (Mycobutin), rifampin (Rifadin, Rifater, Rifamate), or rifapentine (Priftin); phenobarbital (Solfoton) or other barbiturates; diazepam (Valium) or similar medicines such as alprazolam (Xanax), lorazepam (Ativan), c lorazepate (Tranxene), and others; a heart rhythm medication such as amiodarone (Cordarone, Pacerone), disopyramide (Norpac e), dofetilide (Tikosyn), flecaininde (Tambocor), procainamide (Pronestyl), propafenone, (Ry thmol), quinidine (Katia-G), sotalol (Betapace), and others; HIV medication such as efavirenz (Sustiva), etravirine (Intelence), nevirapine (Viramune ), or ritonavir (Kaletra, Norvir); or seizure medication such as carbamazepine (Carbatrol, Equetro, Tegretol), felbamate (Felb atol), oxcarbazepine (Trileptal), phenytoin (Dilantin), or primidone (Mysoline). This list is not complete and other drugs may interact with buprenorphine. Tell your doctor about all medications you use. This includes prescription, hkqc-yit-srfospb, vitamin, and h erbal products. Do not start a new medication without telling your doctor. Where can I get more information? Your pharmacist can provide more information about buprenorphine. Remember, keep this and all other medicines out of the reach of children, never share your medicines with others, and use this medication only for the indication prescribed. Every effort has been made to ensure that the information provided by [employer]. ( '[employer]') is accurate, up-to-date, and complete, but no guarantee is made to that effect. Dr roy information contained herein may be time sensitive. [employer] information has been compiled for use by healthcare practitioners and consumers in the [place] and therefore [employer] does not warrant that uses outside of the [place] are appropriate, unless specifically indicated otherwise. [employer] drug information does not endorse drugs, diagnose patients or recommend therapy. [employer] drug information is an informational resource designed to susan t licensed healthcare practitioners in caring for their patients and/or to serve consumers v iewing this service as a supplement to, and not a substitute for, the expertise, skill, know ledge and judgment of healthcare practitioners. The absence of a warning for a given drug or drug combination in no way should be construed to indicate that the drug or drug combinatio n is safe, effective or appropriate for any given patient. [employer] does not assume any respon sibility for any aspect of healthcare administered with the aid of information [employer] provid es. The information contained herein is not intended to cover all possible uses, directions, precautions, warnings, drug interactions, allergic reactions, or adverse effects. If you quach ve questions about the drugs you are taking, check with your doctor, nurse or pharmacist. Copyright 4516-7621 [employer]. Version: 2.02. Revision date: 09/07/2011. This information does not replace the advice of a doctor. [employer] [place] disclaim s any warranty or liability for your use of this information. Content Version: 9.9.282275 Using Your Medicines: After Your Visit Your Care Instructions Medicines are an important part of treatment for many health problems. But for medicines to help you the most, you have to take them the right way. To do this, you need to know your m edicines. And you need to take them safely and correctly. Follow-up care is a grajeda part of your treatment and safety. Be sure to make and go to all ap pointments, and call your doctor if you are having problems. It's also a good idea to know y our test results and keep a list of the medicines you take. How can you care for yourself at home? Know your medicines Talk to your doctors about why you are taking each medicine. Make a master list of all your medicines. Include the medicine names and doctors' names. Include doses and side effects too. And write down why you are taking each medicine. Includ e all prescription and rxxa-sih-wnxvsbj medicines, vitamins, and supplements. Keep this list up to date. Take a copy to each doctor visit. Know when you will run out of each medicine. Ask your pharmacist if there are ways the arron alejo can remind you to refill your medicines so you do not run out. Write refill reminde rs on your calendar. Don't wait until you have a few pills left. Ask your pharmacist to plan your refills so that you can orange picker all your medicines at t he same time. This can mean fewer trips to the drugstore. Be safe Talk with your pharmacist or doctor before you take a new prescription, opee-ndl-spkhihc medicine, or supplement. Ask about side effects and interactions. And find out what you can do about them. If you are having a side effect or think a side effect may be caused by an interaction, talk to your doctor or pharmacist. He or she will help you figure out how to adjust your med icines to avoid the problem. Ask your doctor or pharmacist to run your medicine list through a drug interaction check er. This checks for medicines that can have bad interactions. If you find a problem, talk to your doctor. Use one drugstore or pharmacy, if possible. The pharmacist will know which medicines you take. He or she will watch for interactions. If side effects bother you and you wonder if you should keep taking a medicine, call you r doctor. Your doctor may be able to lower your dose or change your medicine. If you have had a bad allergic reaction to a medicine before and are exposed to it again , treat any symptoms as an emergency. Even if the symptoms are mild at first, they may quick ly become very severe. Take your medicines correctly Take your medicines exactly as prescribed. Call your doctor if you think you are having a problem with your medicine. Make a daily schedule of your medicines. Put your schedule someplace where you will alwa ys see it and where it is easy to find. Use a pillbox. You can buy small pillboxes with just a few compartments. Or you can buy larger ones. If you use a pillbox, keep one pill in its original bottle. Then if you forget what a pill is for, you can find the bottle it came from. Remind yourself. Get sticky notes, and make reminders to take your medicine. Post them n ear clocks or on the bathroom mirror. Use a wristwatch with an alarm. You can set it when yo u need to take your medicine. Take the medicine when you do a daily task, such as brushing your teeth or making your c offee. Talk with your doctor about what you should do if you miss a dose of a medicine. Discuss what to do for each medicine, since it may be different for each one. Where can you learn more? To learn more about "Using Your Medicines: After Your Visit", log into your Kaliki account at [email or web address]. You can enter K939 in the [employer]" search box. Not on Kaliki? Review the [employer] section of your After Visit Summary for directions on ho w to sign up. [id number] [employer]. Care instructions adapted under license by [facility]. This care instruction is for use with your licensed healthcar e professional. If you have questions about a medical condition or this instruction, always ask your healthcare professional. [employer] disclaims any warranty or liabili ty for your use of this information. Content Version: 9.9.248263; Last Revised: September 17, 2012 Safe Use of Opiate Pain Medicine: After Your Visit Your Care Instructions Pain is your body's way of warning you that something is wrong. Pain feels different for ev erybody. Only you can describe your pain. A doctor can suggest or prescribe many types of medicines for pain. These range from nonpre scription medicines like acetaminophen (Tylenol) to powerful medicines called opiates. Opiates work well to relieve pain. But they also can cause problems, especially if they are taken too often or in too large a dose. They can interact with other medicines, or they may make it hard for you to do your job or to think clearly. They can even cause . For the se reasons, doctors are very careful about how they prescribe opiates. The doctor carefully considered what pain medicine is right for you. You may not have recei karthik opiate pain medicine if your doctor was concerned about drug interactions or your safety , or if he or she had other concerns. It is best to have one doctor or clinic treat your pain. This way you will get the pain med icine that will help you the most, and a doctor will be able to watch for any problems that the medicine might cause. The doctor has checked you carefully, but problems can develop later. If you notice any pro blems or new symptoms, get medical treatment right away. Follow-up care is a grajeda part of your treatment and safety. Be sure to make and go to all ap pointments, and call your doctor if you are having problems. It's also a good idea to know y our test results and keep a list of the medicines you take. How can you care for yourself at home? Try other ways to reduce pain: Relax, and reduce stress. Relaxation techniques such as deep breathing or meditation can help. Keep moving. Gentle, daily exercise can help reduce pain over the long run. Try low- or no-impact exercises such as walking, swimming, and stationary biking. Do stretches to stay f lexible. Try heat, cold packs, and massage. Get enough sleep. Pain can make you tired and drain your energy. Talk with your doctor i f you have trouble sleeping because of pain. Think positive. Your thoughts can affect your pain level. Do things that you enjoy to di stract yourself when you have pain instead of focusing on the pain. See a movie, read a book , listen to music, or spend time with a friend. If the doctor gave you a prescription medicine, take it as prescribed. If you are not taking a prescription pain medicine, ask your doctor if you can take an o pjb-oxb-lyibmsw medicine. When should you call for help? Call your doctor now or seek immediate medical care if: You have a new kind of pain. You have new symptoms, such as a fever or rash, along with the pain. Watch closely for changes in your health, and be sure to contact your doctor if: You think you might be using too much pain medicine, and you need help to use less or st op. Your pain gets worse. You would like a referral to a doctor or clinic that specializes in pain management. Where can you learn more? To learn more about "Safe Use of Opiate Pain Medicine: After Your Visit", log into your [employer] account at [email or web address]. You can enter R108 in the [employer]" se arch box. Not on MyChart? Review the MyChart section of your After Visit Summary for directions on oracio morton to sign up. [id number] [employer]. Care instructions adapted under license by [facility]. This care instruction is for use with your licensed healthcar e professional. If you have questions about a medical condition or this instruction, always ask your healthcare professional. [employer] disclaims any warranty or liabili ty for your use of this information. Content Version: 9.9.617119; Last Revised: April 16, 2012 Learning About Opiates Introduction Opiates are medicines used to relieve moderate to severe pain. They may be used for a short time for pain, such as after surgery. Or they may be used for long-term pain. They don't cu re a health problem. But they help you manage the pain. Opiates relieve pain by changing the way your body feels pain and the way you feel about pa in. Sometimes opiates are used for people who can't take other pain medicines. They may be pres cribed if you have heart, kidney, or liver problems. For instance, you may take an opiate in stead of nonsteroidal anti-inflammatory drugs (NSAIDs). NSAIDs include ibuprofen (Advil, Mot rin) and naproxen (Aleve). Opiates are powerful medicines. You may need to take extra steps to stay safe. Examples Opiates or other medicines that contain them include: Codeine (Tylenol 3). Hydrocodone (Nadeau, Vicodin). Oxycodone (OxyContin, Percocet). Safety tips Taking too much (overdose) of an opiate can cause . To avoid an overdose: Take your medicines exactly as prescribed. Call your doctor if you think you are having a problem with your medicine. You will get more details on the specific medicines your docto r prescribes. Do not break, crush, or chew a pill. Do not cut or tear a patch. Do not drink alcohol. Do not take illegal drugs. Do not drive or operate machinery until the medicine effects are gone. Wait until you ca n think clearly. Keep your medicine away from children and pets. Store it in a safe and secure place. Call your doctor if you miss a dose of your medicine and aren't sure what to do. Do not double your dose. Check with your doctor or pharmacist before you use any other medicines. This includes o nvg-seu-uwuxazh medicines. Make sure your doctor knows all of the medicines, vitamins, herba l products, and supplements you take. Taking some medicines together can cause problems. Side effects Common side effects include: Constipation. Feeling dizzy or lightheaded. You may feel like you might faint. Feeling sleepy. Nausea or vomiting. You may have other side effects or reactions. Check the information that comes with your me joseine. What to know about taking this medicine Your body gets used to opiates if you take them all the time. You could have withdrawal symptoms when you stop taking them. Symptoms include nausea, sweating, chills, diarrhea, and shaking. But you can avoid these symptoms if you slowly stop taking the medicine as your do ctor tells you to. You have a small chance of addiction if you take opiates as prescribed. Your risk is a b it higher if you have abused drugs in the past. Some opiates have acetaminophen in them. Check the labels on all the other medicines you take. This includes igsf-jjg-zvcfavn drugs. Many medicines have acetaminophen. Do not take others with acetaminophen in them unless your doctor has told you to. Taking too much acetam inophen can be harmful. Talk to your doctor or pharmacist if you have questions about this. Be sure you know how to safely get rid of any leftover medicine. Talk to your doctor or pharmacist about how to do this. Ask for written instructions. When should you call for help? Call 911 anytime you think you may need emergency care. For example, call if: You have trouble breathing. You have swelling of your face, lips, tongue, or throat. You have signs of an overdose. These include: Cold, clammy skin. Confusion. Severe nervousness or restlessness. Severe dizziness, drowsiness, or weakness. Slow breathing. Seizures. Call your doctor now or seek immediate medical care if: You have hives. Watch closely for changes in your health, and be sure to contact your doctor if: Your medicine is not helping with the pain. You are having side effects, such as constipation. Where can you learn more? To learn more about "Learning About Opiates", log into your Kaliki account at [email or web address] ([email or web address]. You can enter F734 in the [employer] Library" search box. Not on MyChart? Review the MyChart section of your After Visit Summary for directions on oracio morton to sign up. [id number] [employer]. Care instructions adapted under license by [facility]. This care instruction is for use with your licensed healthcar e professional. If you have questions about a medical condition or this instruction, always ask your healthcare professional. [employer] disclaims any warranty or liabili ty for your use of this information. Content Version: 9.9.237960; Last Revised: October 29, 2012 Tennis Elbow: Exercises Your Care Instructions Here are some examples of typical rehabilitation exercises for your condition. Start each e xercise slowly. Ease off the exercise if you start to have pain. Your doctor or physical therapist will tell you when you can start these exercises and whic h ones will work best for you. How to do the exercises Wrist flexor stretch 1. Extend your arm in front of you with your palm up. 2. Bend your wrist, pointing your hand toward the floor. 3. With your other hand, gently bend your wrist farther until you feel a mild to moderate s tretch in your forearm. 4. Hold for at least 15 to 30 seconds. Repeat 2 to 4 times. Wrist extensor stretch Repeat steps 1 to 4 of the stretch above but begin with your extended hand palm down. Ball or sock squeeze 1. Hold a tennis ball (or a rolled-up sock) in your hand. 2. Make a fist around the ball (or sock) and squeeze. 3. Hold for about 6 seconds, and then relax for up to 10 seconds. 4. Repeat 8 to 12 times. 5. Switch the ball (or sock) to your other hand and do 8 to 12 times. Wrist deviation 1. Sit so that your arm is supported but your hand hangs off the edge of a flat surface, garza ch as a table. 2. Hold your hand out like you are shaking hands with someone. 3. Move your hand up and down. 4. Repeat this motion 8 to 12 times. 5. Switch arms. 6. Try to do this exercise twice with each hand. Wrist curls 1. Place your forearm on a table with your hand hanging over the edge of the table, palm up . 2. Place a 1- to 2-pound weight in your hand. This may be a dumbbell, a can of food, or a f illed water bottle. 3. Slowly raise and lower the weight while keeping your forearm on the table and your palm facing up. 4. Repeat this motion 8 to 12 times. 5. Switch arms, and do steps 1 through 4. 6. Repeat with your hand facing down toward the floor. Switch arms. Biceps curls 1. Sit leaning forward with your legs slightly spread and your left hand on your left thigh . 2. Place your right elbow on your right thigh, and hold the weight with your forearm horizo ntal. 3. Slowly curl the weight up and toward your chest. 4. Repeat this motion 8 to 12 times. 5. Switch arms, and do steps 1 through 4. Follow-up care is a grajeda part of your treatment and safety. Be sure to make and go to all ap pointments, and call your doctor if you are having problems. It's also a good idea to know y our test results and keep a list of the medicines you take. Where can you learn more? To learn more about "Tennis Elbow: Exercises", log into your Kaliki account at [email or web address]. You can enter U616 in the [employer] Library" search box. Not on Kaliki? Review the Kaliki section of your After Visit Summary for directions on ho w to sign up. [phone] [employer]. Care instructions adapted under license by [facility]. This care instruction is for use with your licensed healthcar e professional. If you have questions about a medical condition or this instruction, always ask your healthcare professional. [employer] disclaims any warranty or liabili ty for your use of this information. Content Version: 9.9.726454; Last Revised: April 28, 2011 Golfer's Elbow: Exercises Your Care Instructions Here are some examples of typical rehabilitation exercises for your condition. Start each e xercise slowly. Ease off the exercise if you start to have pain. Your doctor or physical therapist will tell you when you can start these exercises and whic h ones will work best for you. How to do the exercises Wrist extensor stretch 1. Extend your affected arm in front of you and make a fist with your palm facing down. 2. Bend your wrist so that your fist points toward the floor. 3. With your other hand, gently bend your wrist farther until you feel a mild to moderate s tretch in your forearm. 4. Hold for at least 15 to 30 seconds. 5. Repeat 2 to 4 times. 6. Repeat steps 1 through 5 with your fingers pointing toward the floor. Forearm extensor stretch 1. Place your affected elbow down at your side, bent at about 90 degrees. Then make a fist with your palm facing down. 2. Keeping your wrist bent, slowly straighten your elbow so your arm is down at your side. Then twist your fist out so your palm is facing out to the side and you feel a stretch. 3. Hold for at least 15 to 30 seconds. 4. Repeat 2 to 4 times. Wrist flexor stretch 1. Extend your affected arm in front of you with your palm facing away from your body. 2. Bend back your wrist, pointing your hand up toward the ceiling. 3. With your other hand, gently bend your wrist farther until you feel a mild to moderate s tretch in your forearm. 4. Hold for at least 15 to 30 seconds. 5. Repeat 2 to 4 times. 6. Repeat steps 1 through 5, but this time extend your affected arm in front of you with yo ur palm facing up. Then bend back your wrist, pointing your hand toward the floor. Resisted wrist extension 1. Sit leaning forward with your legs slightly spread. Then place your affected forearm on your thigh with your hand and wrist in front of your knee. 2. Grasp one end of an exercise band with your palm down, and step on the other end. 3. Slowly bend your wrist upward for a count of 2, then lower your wrist slowly to a count of 5. 4. Repeat 8 to 12 times. Resisted wrist flexion 1. Sit leaning forward with your legs slightly spread. Then place your affected forearm on your thigh with your hand and wrist in front of your knee. 2. Grasp one end of an exercise band with your palm up, and step on the other end. 3. Slowly bend your wrist upward for a count of 2, then lower your wrist slowly to a count of 5. 4. Repeat 8 to 12 times. Neck stretch to the side 1. This stretch works best if you keep your shoulder down as you lean away from it. To help you remember to do this, start by relaxing your shoulders and lightly holding on to your th ighs or your chair. 2. Tilt your head away from your affected elbow and toward your opposite shoulder. For exam ple, if your right elbow is sore, keep your right shoulder down as you lean your head toward your left shoulder. 3. Hold for 15 to 30 seconds. Let the weight of your head stretch your muscles. 4. If you would like a little added stretch, use your hand to gently and steadily pull your head toward your shoulder. For example, if your right elbow is sore, use your left hand to gently pull your head toward your left shoulder. 5. Repeat 2 to 4 times. Resisted forearm pronation 1. Sit leaning forward with your legs slightly spread. Then place your affected forearm on your thigh with your hand and wrist in front of your knee. 2. Grasp one end of an exercise band with your palm up, and step on the other end. 3. Keeping your wrist straight, roll your palm inward toward your thigh for a count of 2, t hen slowly move your wrist back to the starting position to a count of 5. 4. Repeat 8 to 12 times. Resisted supination 1. Sit leaning forward with your legs slightly spread. Then place your affected forearm on your thigh with your hand and wrist in front of your knee. 2. Grasp one end of an exercise band with your palm down, and step on the other end. 3. Keeping your wrist straight, roll your palm outward and away from your thigh for a count of 2, then slowly move your wrist back to the starting position to a count of 5. 4. Repeat 8 to 12 times. Follow-up care is a grajeda part of your treatment and safety. Be sure to make and go to all ap pointments, and call your doctor if you are having problems. It's also a good idea to know y our test results and keep a list of the medicines you take. Where can you learn more? To learn more about "Golfer's Elbow: Exercises", log into your Kaliki account at [email or web address]. You can enter H459 in the [employer]" search box. Not on PressLabst? Review the [employer] Biosc[employer] section of your After Visit Summary for directions on oracio morton to sign up. [id number] [employer]. Care instructions adapted under license by [facility]. This care instruction is for use with your licensed healthcar e professional. If you have questions about a medical condition or this instruction, always ask your healthcare professional. [email or web address] [place] disclaims any warranty or liabili ty for your use of this information. Content Version: [id number]; Last Revised: July 06, 2011 documented in this encounter Progress Notes Alexei ARMENDARIZ, Tavia Donato - 09/01/2013 1:50 PM PDTFormatting of this note might be differen t from the original. Progress Note Clinic: Rheumatology Reason for follow-up: Chief Complaint Patient presents with Pain Medication management Ms. Santiago returns today for reevaluation of pain and medication management. She has been on and off the patch due to issues with prescribing and then with insurance coverage. Pain is keeping her awake at night. Right side from back around hip and down thigh- feels like a burning. Has had injection in hip and it didn't help at all. Daytime better if up and moving around except for the knees. Stairs are difficult going up and down- feels mostly anterior- has torn meniscus in both knees. Knees have never been in jected. Last saw orthopedist March 2013 plan was she would reschedule if she was interest ed in steroid injections. Went back to orthopedist and saw PA was referred her for chivo mariscal. Bowel function some constipation. Not on stool softener. Will be going on a month long cruise from November 16 through late November throughout [place]. ROS: See scanned form. Past Medical History: Past Medical History Diagnosis Date Fibromyalgia Arthropathy, unspecified, site unspecified Other general symptoms IBS (irritable bowel syndrome) HTN (hypertension), benign Endometriosis Melanoma Medications: Current Outpatient Prescriptions Medication Sig Ascorbic Acid (VITAMIN C) 500 mg OR CHEW 1000 mg, 1 chewable per day buprenorphine (BUTRANS) 10 mcg/hour transdermal patch weekly Apply 1 patch to skin ever y seven days. CALCIUM CARBONATE/VITAMIN D2 (CALCIUM + VITAMIN D ORAL) Take 1 tablet by mouth two time s daily. Calcium 600 mg, D3 400 IU CHONDROITIN SULFATE A ORAL Take 1,250 mg by mouth two times daily. docusate sodium (COLACE) 100 mg oral capsule Take 1 capsule by mouth two times daily. DULoxetine (CYMBALTA) 20 mg Oral capsule,delayed release(DR/EC) Take 20 mg by mouth thr ee times daily. ERGOCALCIFEROL, VITAMIN D2, (VITAMIN D ORAL) Take 4,000 Units by mouth once daily. folic acid 1 mg Oral tablet Take 1 tablet by mouth once daily. GLUC GARZA/CHONDRO GARZA A/VIT C/MN (GLUCOSAMINE 1500 COMPLEX ORAL) Take 2 tablets by mouth t wo times daily. hydrochlorothiazide 25 mg oral tablet Take 25 mg by mouth once daily. 1/2 tab hydroxychloroquine (PLAQUENIL) 200 mg Oral tablet Take 200 mg by mouth two times daily. Lysine 500 mg OR CAPS 1 tablet daily methotrexate 2.5 mg oral tablet Take 4 tablets by mouth every seven days. mirabegron (MYRBETRIQ) 50 mg oral tablet extended release 24 hr Take 1 tablet by mouth once daily. ranitidine (ZANTAC) 150 mg Oral tablet Take 150 mg by mouth as needed. SOFT CHEWS CALCIUM OR 3 day SOY ISOFLAVONES OR 1-3 day TYLENOL PM OR 1 @ HS valsartan 40 mg Oral tablet Take 40 mg by mouth once daily. No current facility-administered medications for this visit. Allergies: Morphine; Adhesive tape; Bextra; Cardizem; Celexa; Codeine; Imdur; Lexapro; Nexi um; and Oxycodone Social History: Ashly reports that she has never smoked. She does not have any smokeless tobacco history on file. Family History: family history includes Additional Family History in her father (Parkinson' s); Arthritis in her sister; Heart Disease in her mother; and Stroke in her mother. Physical Exam: BP 130/64 | Pulse 80 | Wt 90.13 kg (198 lb 11.2 oz) | SpO2 97% | BMI 33.07 kg/(m^2) Pain Sc ore: 7 Rapid 3 MHAQ: 4.3 (09/01/13 1300) PAIN LEVEL: 8 (09/01/13 1300) GLOBAL ASSESSMENT: 8 (09/01/13 1300) RAPID 3: 6.77 (09/01/13 1300) Gen: Well nourished, well developed, in NAD HEENT: unremarkable Ext: No clubbing, cyanosis, or edema M/S: +Pt tenderness at medial and lateral epicondyles Skin: no abnormalities Neuro: normal Labs: Lab Results Component Value Date WBC 11.31* 07/09/2013 RBC 3.76* 07/09/2013 HCT 36.8 07/09/2013 HB 11.7* 07/09/2013 MCV 97.9* 07/09/2013 MCHC 31.8* 07/09/2013 PLT 290 07/09/2013 NEUTROPERC 67.4 07/09/2013 LYMPHPERC 18.3 07/09/2013 MONOPERC 10.1* 07/09/2013 EOSPERC 3.0 07/09/2013 BASOPERC 0.8 07/09/2013 NEUTROPHILCO 7.62 07/09/2013 GLU 90 07/09/2013 BUN 23* 07/09/2013 CR 1.01 07/09/2013 TP 7.3 07/09/2013 ALB 4.2 07/09/2013 CA 9.5 07/09/2013 TBILI 0.4 07/09/2013 AP 78 07/09/2013 AST 23 07/09/2013 NA 139 07/09/2013 K 3.9 07/09/2013 CL 103 07/09/2013 BICARB 30 07/09/2013 ALT 23 07/09/2013 Lab Results Component Value Date ESR 23 07/09/2013 Impression: This is a 73 y.o. female here for follow up of complex pain syndrome including fibromyalgia, OA and RA. New diagnosis lateral and medial epicondylitis. I reviewed the patient s questionnaire which included more than 10 review of systems, ans wered all questions raised, and provided counseling and education. Functional Assessment: [facility] 05/06/2013 07/09/2013 09/01/2013 RAPID 3 6.9 6.1 6.77 Recommendations: 1. Increase buprenorphine patch from 5mcg to 10mcg/ hour x 7 days +3 RF. Reiterated use, S E and precautions. 2. Check urine toxicology per protocol. 3. Add docusate 100mg BID. Detailed bowel regimen and need to prevent constipation. 4. Detailed information regarding epicondylitis specifically counter resistance strap and e xercises. Consider therapeutic steroid injection if not improved at 6 weeks. Possibly rela jesus to RA? Ms. Santiago has appointment tomorrow to see [place] man Dr. Rosas Lucia. 5. 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 Discuss this with Dr. Lucia and possibly follow-up with orthopedics locally in [facility]. 6. Ms. Santiago will have to travel to [place] from [facility] every 3 months for reevaluatio n if I am to continue to prescribe the buprenorphine patch for her. She explains this is a 400 mile journey round trip. Ms. Santiago is a 73 yo vibrant woman who travels internationally and is cognitively intact but has increased pain due to an aging skeleton and nervous syste m in addition to inflammatory arthritis. Given that she's compliant with all recommendation s and used fibromyalgia specific medications to little improvement I think it's absolutely r easonable to effectively treat her pain with opiates with mu receptor favorability and facil itate improved quality of life at this time. It would be greatly appreciated if her primary care provider, Dr. Thee Boss, would reconsider and proceed with prescribing this medica tion moving forward. Otherwise she is to follow-up for clinical reevaluation and medication management at 3 months. [facility] [address] [place] [address] Mailcode: Op09 [facility] 4th [facility] [phone] documented in th is encounter Plan of Treatment Not on filedocumented as of this encounter Results DRUG SCR UR, CHRONIC PAIN; W/ CONFIRM (09/01/2013 2:29 PM PDT) + + + + + + | Component | Value | Ref Range | Performed | Pathologist | | | | | At | Signature | + + + + + + | AMPHETAMINE | Negative | Negative | [facility] | | | , URINE | | | LABORATORY | | | | | | SERVICES, | | | | | | CORE | | + + + + + + | COCAINE, | Negative | Negative | [facility] | | | URINE | | | LABORATORY | | | | | | SERVICES, | | | | | | CORE | | + + + + + + | OPIATES, | Negative | Negative | [facility] | | | URINE | | | LABORATORY | | | | | | SERVICES, | | | | | | CORE | | + + + + + + | CANNABINOID | Negative | Negative | [facility] | | | S, URINE | | | LABORATORY | | | | | | SERVICES, | | | | | | CORE | | + + + + + + | METHADONE, | Negative | Negative | [facility] | | | URINE | | | LABORATORY | | | | | | SERVICES, | | | | | | CORE | | + + + + + + | OXYCODONE, | Negative | Negative | [facility] | | | URINE | | | LABORATORY | | | | | | SERVICES, | | | | | | CORE | | + + + + + + | BENZODIAZEP | Negative | Negative | [facility] | | | COLT, URINE | | | LABORATORY | | | | | | SERVICES, | | | | | | CORE | | + + + + + + + + | Specimen | + + | Urine - Urine | + + + + + | Narrative | Performed At | + + + | Minimum drug concentration yielding a positive urine drug screen. | [facility] | | Amphetamines >=1000 ng/mL Barbiturates | LABORATORY | | >=200 ng/mL Benzodiazepine | SERVICES, CORE | | >=200 ng/mL Cocaine >=300 ng/mL | | | Methadone >=300 ng/mL Opiates | | | >=300 ng/mL Oxycodone | | | >=100 ng/mL THC - Cannabinoid >=50 ng/mL | | | Results are to be used for medical (i.e. treatment) purposes only. | | + + + + + + + + | Performing | Address | City/State/Zipcode | Phone Number | | Organization | | | | + + + + + | [facility] | [address] | [place] [address] | | | SERVICES, CORE | [address] | | | + + + + + documented in this encounter Visit Diagnoses + + | Diagnosis | + + | Fibromyalgia - Primary Mylagia and myositis, unspecified | + + | Rheumatoid arthritis(714.0) (HCC) Rheumatoid arthritis | + + | Opiate use Opioid abuse, unspecified | + + | Epicondylitis syndrome of elbow Lateral epicondylitis of elbow | + + | Arthritis of both knees Unspecified arthropathy, lower leg | + + documented in this encounter
--- OUTSIDE RECORDS SUMMARY | ~2019-05-17 | XMS | Encounter Summary ---
Demographics + + + | Address | [address] | | | [place] [address] | + + + | Home Phone | | + + + | Preferred Language | Unknown | + + + | Marital Status | | + + + | Latter-Day Affiliation | [id number] | + + + | Race | Unknown | + + + | Ethnic Group | Unknown | + + + Author + + + | Author | [facility] | | | and [place] | + + + | Organization | [facility] | | | and Azana [...] [place], [place] | | | | | [address] | | + + + + + | Helena Doherty | ECON | [place], | | | | | [place] [address] | | + + + + + Care Team Providers + +------+ + | Care Print Finishing Worker Name | Role | Phone | + +------+ + | Nathan Luevano DO | PCP | | + +------+ + Reason for Visit +--------+ + | Reason | Comments | +--------+ + | Other | | +--------+ + Encounter Details +--------+ + + + + | Date | Type | Department | Care Team | Description | +--------+ + + + + | 08/05/ | Telephone | [facility] | Aiyana Fish, | Other | | 2019 | | [facility] | [address] | | | | | [address] | [place] | | | | | [place] | [address] | | | | | [address] | | | | | | [phone] | | | +--------+ + + + [...] ST | | | | | | [address] [place] | | | | | | [place] [address] | | | | | | [phone] | | | | | | | | | | | | [place]er TenderNaomi | | +--------+ + + + + documented as of this encounter Visit Diagnoses Not on filedocumented in this encounter"
--- OUTSIDE RECORDS SUMMARY | ~2019-05-17 | XMS | Encounter Summary ---
Demographics + + + | Address | [address] | | | [place] [address] | + + + | Home Phone | | + + + | Preferred Language | Unknown | + + + | Marital Status | | + + + | Yazidism Affiliation | [id number] | + + + | Race | Unknown | + + + | Ethnic Group | Unknown | + + + Author + + + | Author | [facility] | | | and Azana | + + + | Organization | [facility] | | | and Azana [...] [place], [place] | | | | | [address] | | + + + + + | Helena Doherty | ECON | [place], | | | | | [place] [address] | | + + + + + Care Team Providers + +------+ + | Care Medical Oncology Physician Name | Role | Phone | + [...] | | | | | | | IA | | | | | | | ARTHDSIS | | | | | | | POST/POSTERO | | | | | | | LATRL/POSTIN | | | | | | | TERBODY | | | | | | | LUMBAR IA | | | | | | | SPINE | | | | | | | FUSN,POST | | | | | | | TECH,EA | | | | | | | ADDNL SGMT | | | | | | | IA LUMBAR | | | | | | [...] | | | | | | SEG IA | | | | | | | LAMINEC/FACE | | | | | | | TECT/FORAMIN | | | | | | | ,EACH ADDNL | | | | | | | IA INSJ | | | | | | | BIOMCHN DEV | | | | | | | INTERVERTEBR | | | | | | | AL DSC SPC | | | | | | | W/ARTHRD IA | | | | | | | [...] Description | +--------+---------+ + + + | 02/14/ | Surgery | [facility] | Agusto Pereira MD | L4-5 Lateral | | 2017 | | MED CTR OR INTRA OP | [address] | Anterior Interbody | | | | [address] | [place] [address] | Fusion, L5-S1 | | | | MARCOS Zavala | [phone] | Transforaminal | | | | [address] | | Lumbar Interbody | | | | [phone] | | Fusion | +--------+---------+ + + [...] + + + | Blood Pressure | 153/67 | 02/17/2017 7:53 AM | pt just got done | | | | PDT | ambulating from BR | + + + + + | Pulse | 91 | 02/17/2017 9:20 AM | | | | | PDT | | + + + + + | Temperature | 36.9 C (98.4 F) | 02/17/2017 7:53 AM | | | | | PDT | | + + + + + | Respiratory Rate | 20 | 02/17/2017 7:53 AM | | | | | PDT | | + + + + + | Oxygen Saturation | 93% | 02/17/2017 9:20 AM | | | | | PDT | | + + + + + | Inhaled Oxygen | - | - | | | Concentration | | | | + + + + + | Weight | 84.8 kg (187 lb) | 02/14/2017 6:59 AM | | | | | PDT | | + + + + + | Height | 167.6 cm (5' 6") | 02/14/2017 6:59 AM | | | | | PDT | | + + + + + | Body Mass Index | 30.18 | 02/14/2017 6:59 AM | | | | | PDT | | + + + + + documented in this encounter Discharge Summaries Eric Mcmanus PA - 02/17/2017 8:41 AM PDTFormatting of this note might be different f rom the original. DISCHARGE SUMMARY Pt. Name/Age/: Ashly Santiago 77 y.o. 1940 Date of Admission: 02/14/2017 Date of Discharge: 02/17/2017 Admitting Physician: Agusto Pereira MD PCP: Nathan Luevano Discharging Physician: OBEY Dalton Primary Discharge Dx: Lumbar spondylosis Secondary Discharge Dx: Patient Active Problem List Diagnosis BURSITIS, HIP Facet arthritis of lumbar region BACK PAIN, LUMBAR INTERNAL DERANGEMENT, KNEE Fibromyalgia Lumbar radiculopathy DEGENERATIVE DISC DISEASE, LUMBAR SPINE DEGENERATIVE DISC DISEASE, CERVICAL SPINE Sacroiliitis Lumbar foraminal stenosis Idiopathic scoliosis of lumbar spine Lumbar scoliosis Rheumatoid arthritis - on methotrexate Hypertension GERD (gastroesophageal reflux disease) Hard of hearing H/O PONV Postoperative nausea and vomiting H/O Hysterectomy Class I, BMI 30-34.9 Reason for Admission (Brief): The patient is a 76 y.o.femalewith the complaint of back and bilateral leg painsymptoms that began severalmonths ago. The patient states no defin ite known cause for the back and leg pain. She presents today for planned surgery. The symptoms have been rapidly worsening. Sherates the pain assevere. The symptoms are continuous . Shedescribes the pain as sharp, numbing, tingling, shooting, dull and throbbing. The patient describes leg symptoms that occur on both sides equally. The leg symptoms acc ount for 50%of hersymptoms. The leg symptoms are intermittent, and the symptoms travel from the back to the lateral thigh. The patient also describes the loss of the ability to walk distances without sitting, numbness of the legs and weakness of the legs. Hospital Course, including Complications: On the day of admission the patient was admitted to [facility] and underwent a L4-S1. Patient was transferred to PACU and then to the neurosurgical floor. In brief, the hospit al stay was uncomplicated, the patient mobilized well with physical therapy and occupational therapy. There were no cardiac issues, pulmonary issues, evidence of DVT or infection. Niko ropriate discharge plans were made in line with her progress and mobility and she was chalino mckeony discharged to home. Medications Reconciled upon Discharge are: Discharge Medications New Medications Details lactulose 10 g/15 mL solution Take 30 mLs by mouth 2 times daily. For constipation ondansetron 4 mg disintegrating tablet Take 1 tablet by mouth every 6 hours as needed for Nausea or Vomiting. aka: ZOFRAN ODT oxyCODONE 5 mg tablet Take 1-2 tablets by mouth every 4 hours as needed for Pain. aka: ROXICODONE tiZANidine 4 mg tablet Take 1 tablet by mouth 3 times daily as needed (Muscle Spasms). aka: ZANAFLEX Unchanged Medications Details BIOTIN 5000 PO Take 1 tablet by mouth Daily. Cholecalciferol 2000 units Caps Take 2,000 Units by mouth Daily. aka: VITAMIN D-3 diclofenac 1% Gel Apply 1 g topically 2 times daily. aka: VOLTAREN docusate sodium 100 mg capsule Take 100 mg by mouth Daily as needed for Constipation. aka: COLACE ESTROVEN PO Take 1 tablet by mouth Daily. folic acid 1 mg tablet Take 1 mg by mouth Daily. hydroxychloroquine 200 mg tablet Take 200 mg by mouth Daily. aka: PLAQUENIL losartan-hydrochlorothiazide 50-12.5 MG per tablet Take 1 tablet by mouth Daily. aka: HYZAAR LYSINE PO Take by mouth. L-Lysine 50 mg daily methotrexate 2.5 mg tablet Take 10 mg by mouth Once a week. NALTREXONE HCL PO Take 4.5 mg by mouth Daily. PRESERVISION AREDS 2 Caps Take 1 capsule by mouth 2 times daily. VITAMIN B 12 PO Take 1,000 mcg by mouth Daily. ZANTAC 150 mg tablet Generic drug: raNITIdine Take 150 mg by mouth Daily as needed for Heartburn. Discontinued Medications diclofenac 75 mg EC tablet aka: RUPALN Condition on Discharge: Stable Disposition: Patient was discharged to home Follow-Up Plans: Follow-up with: Dr. Burk's office in 4 weeks Follow-up with primary care physician as needed. Diet: Resume regular diet Activity: Continue to follow guidelines and precautions as previously discussed. Brace: C Electronically signed by: Eric Mcmanus, 02/17/2017 8:41 [facility] documented in this encounter Discharge Instructions Instructions Eric Mcmanus PA - 02/17/2017Discharge Instructions for Lumbar Fusion You had a lumbar fusion. During this procedure, your doctor locked together (fused) some of the bones in your spine. This limits the movement of these bones to help relieve your pain. Here s what you need to know about home care following a spinal fusion. Activity Arrange your household to keep the items you need within reach. Remove electrical cords, throw rugs, and anything else that may cause you to fall. Use a walkeror handrails until your balance, flexibility, and strength improve. And re member to ask for help from others when you need it. Free up your hands so that you can use them to keep balance. Use a rachel pack, apron, or pockets to carry things. Be sure not to carry too much at once. Don t bend or twist at the waist, or raise your hands over your head for the first two weeks after your surgery. Don t lift anything heavier than 5 pounds for the first four weeks after surgery. Don t sit for more than30 to 45 minutes at a time. Take frequent short walks. They a re the grajeda to your recovery. As your back feels better please gradually increase the distanc e you walk as discussed with your provider. Don t drive until your doctor says it s OK. And never drive while you are taking opi oid pain medication. Nap if you are tired, but don t stay in bed all day. Use chairs with arms. The arms make it easier for you to stand up and sit down. If you have not yet received instructions about physical therapy, ask your doctor about them. Incision care Check your incision daily for redness, tenderness, or drainage. Don t soak your wound in water (no hot tubs, bathtubs, swimming pools) until your doct or says it s OK. As long as you keep your incision dry you can shower as desired. After 5 days you may le t shower water run over the incision but do not submerse the incision under water until afte r you see your provider. Gently pat the incision dry. Don t rub it, or apply creams or lot ions. And if you feel unsteady while standing to shower, use a shower stool or chair. Other home care Use nonslip bath mats, grab bars, an elevated toilet seat, and a shower chair in your ba throom. Take your medication exactly as directed. Don t take nonsteroidal anti-inflammatory medications (NSAIDs), such as ibuprofen. The y may delay or prevent proper fusion of the spine. If you smoke, stop! This will be one of the most important things you can do to help you recover from surgery. Wear your back brace, if one was prescribed, as directed by your doctor. Follow-up Most patients will be seen approximately 4 weeks after surgery. Be sure to get your 1 mo nth post op x-rays prior to your 1 month post op appointment before your appointment. [id number] [employer]. [address] [place] [address]. All righ ts reserved. This information is not intended as a substitute for professional medical care. Always follow your healthcare professional's instructions. documented in this encounter Medications at Time [...] documented as of this encounter Progress Notes Eric Mcmanus PA - 02/17/2017 8:27 AM PDTFormatting of this note might be different f rom the original. [facility] NEUROSURGERY PROGRESS NOTE PATIENT NAME: Ashly Santiago AGE: 77 y.o. DATE OF SERVICE: 02/17/2017 8:27 S: Patient is doing fairly well this AM. She states her pain has not been below a 5/10 and she would like for this to be a little better. However she has declined medication several t imes because of nausea. She also is concerned about her Bowels and not having had a BM. She is passing gas. She lives at home with her and is willing to DC home later today. Jenn sanabria has no other C/C. O: CURRENT MEDICATIONS: Current Facility-Administered Medications Medication Dose Route Frequency Provider Last Rate Last Dose acetaminophen (TYLENOL) tablet 650 mg 650 mg Oral Q4H PRN Shreyas Altamirano PA-C 650 mg at 02/15/17 1533 bisacodyl (DULCOLAX) suppository 10 mg 10 mg Rectal Daily PRN OBEY Acuña C-Naltrexone 4.5 mg - Patient's Own Med 4.5 mg Oral Daily Shreyas Altamirano PA-C 4.5 mg at 02/17/17 0818 calcium carbonate (TUMS) chewable tablet 1,000 mg 1,000 mg Oral Q2H PRN Shreyas Altamirano PA-C cyclobenzaprine (FLEXERIL) tablet 10 mg 10 mg Oral Q8H PRN Shreyas Altamirano PA-C 10 mg at 02/17/17 0814 diphenhydrAMINE (BENADRYL) injection 12.5 mg 12.5 mg Intravenous Q4H PRN Shreyas Altamirano PA-C Or diphenhydrAMINE (BENADRYL) tablet 25 mg 25 mg Oral Q4H PRN Shreyas Altamirano PA-C Or diphenhydrAMINE (BENADRYL) 12.5 mg/5 mL liquid 25 mg 25 mg Oral Q4H PRN Shreyas Altamirano PA-C docusate sodium (COLACE) capsule 100 mg 100 mg Oral BID Shreyas Altamirano PA-C 1 00 mg at 02/17/17 0814 enalaprilat (VASOTEC) injection 1.25 mg 1.25 mg Intravenous Q6H PRN Shreyas andrade PA-C losartan (COZAAR) tablet 50 mg 50 mg Oral Daily Agusto Pereira MD 50 mg at 02/17/17 08 14 And hydroCHLOROthiazide (MICROZIDE) capsule 12.5 mg 12.5 mg Oral Daily Agusto Pereira MD 1 2.5 mg at 02/17/17 0814 hydroxychloroquine (PLAQUENIL) tablet 200 mg 200 mg Oral Daily Kyra Acuña 200 mg at 02/17/17 0814 labetalol (TRANDATE) 5 mg/mL injection 10 mg 10 mg Intravenous Q10 Min PRN Shreyas Peralta PA-C lactulose liquid 30 mL 30 mL Oral Daily PRN Shreyas Altamirano PA-C 30 mL at 01/24 11/08 204 magnesium hydroxide (MILK OF MAGNESIA) 400 mg/5 mL suspension 30 mL 30 mL Oral BID PRN Shreyas Altamirano PA-C menthol (HALLS COUGH DROP) lozenge 1 lozenge 1 lozenge Buccal Q2H PRN Shreyas shannon PA-C metoclopramide (REGLAN) tablet 10 mg 10 mg Oral Q4H PRN Shreyas Altamirano PA-C morphine injection 1-2 mg 1-2 mg Intravenous Q1H PRN Shreyas Altamirano PA-C ondansetron (ZOFRAN ODT) disintegrating tablet 4 mg 4 mg Oral Q6H PRN Shreyas shannon PA-C 4 mg at 02/16/17 0923 ondansetron (ZOFRAN) injection 4 mg 4 mg Intravenous Q6H PRN DAMON Acuña 4 mg at 02/17/17 0500 oxyCODONE (ROXICODONE) tablet 5-20 mg 5-20 mg Oral Q4H PRN Shreyas Altamirano PA-C 5 mg at 02/17/17 0814 phenol (CHLORASEPTIC) spray 1-2 spray 1-2 spray Mouth/Throat Q3H PRN Shreyas pastor PA-C polyethylene glycol (MIRALAX) powder 17 g 17 g Oral Daily PRN OBEY Acuña prochlorperazine (COMPAZINE) tablet 5 mg 5 mg Oral Q6H PRN Shreyas Altamirano PA-C senna (SENOKOT) tablet 8.6 mg 8.6 mg Oral BID Shreyas Altamirano PA-C 8.6 mg at 0 02/17/17 0814 sodium chloride 0.9% (NS) infusion Intravenous Continuous Shreyas Altamirano PA-C 50 mL/hr at 02/15/17 0437 ALLERGIES: Allergies Allergen Reactions Tramadol Nausea Only [...] Only Oxycodone Nausea Only Pregabalin Swelling Ankles PHYSICAL EXAMINATION: Temp: [36.9 C (98.4 F)-37.8 C (100 F)] 36.9 C (98.4 F) Pulse: [75-87] 87 Resp: [18-20] 20 BP: (129-169)/(59-72) 153/67 Intake/Output Summary (Last 24 hours) at 02/17/17 0827 Last data filed at 02/17/17 0505 Gross per 24 hour Intake 1800 ml Output 1290 ml Net 510 ml GENERAL: Ashly Addie Santiago is in no acute distress with unlabored respirations. HEENT: HEAD/FACE: EYES: Normocephalic and atraumatic. There are no areas of recent trauma. Normal sclerae without icterus. CHEST: Clear. HEART: Regular. EXTREMITIES: No edema or swelling. SCD's BACK: The back incisions are dress and a drain is in place with expected output. NEUROLOGICAL EXAM: MENTAL STATUS: The patient is awake, alert, and oriented. She follows simple and complex commands. She speech is fluent, her comprehends speech well, and her repeats well. She has no apparent deficits with short or care home memory. MOTOR EXAM: Motor strength is stable SENSORY EXAM: Sensory exam is stable 24 HOUR LABS: All Component Based Labs None ASSESSMENT: NEUROSURGICAL DIAGNOSES: S/p lumbar fusion HOSPITAL/GENERAL DIAGNOSES: Past Medical History: Diagnosis Date Abdominal pain [...] Rheumatoid arthritis (HCC) Sacroiliitis (HCC) 09/04/2012 PLAN: S/p lumbar fusion, Hospital day 3 - Neurologically stable and pain control is appropriate. She as oxycodone 5-20 ordered but has only taken 5mg at a time. I recommend 1.5 tablets which should give her just a little be tter pain control. Will DC home with zofran. - Medically stable - Mobilize, PT/OT - SCD's - Bowel tones are very active. I will order mag citrate and restoril. - Drain output is low and it can be removed now - Disp: Home today with routine follow-up ELECTRONICALLY SIGNED BY: OBEY Dalton, 02/17/2017 8:27 Shreyas Gilmore PA-Edenilson - 02/16/2017 7:42 AM PDTFormatting of this note might be different from the origin [facility] NEUROSURGERY PROGRESS NOTE PATIENT NAME: Ashly Santiago AGE: 77 y.o. DATE OF SERVICE: 02/16/2017 7:42 S: The patient is doing okay this AM. She complains of pain in the low back. Pain medicine is working to a degree. Ambulating in the room. Plans to train with stairs today. Voiding we ll. O: CURRENT MEDICATIONS: Current Facility-Administered Medications Medication Dose Route Frequency Provider Last Rate Last Dose acetaminophen (TYLENOL) tablet 650 mg 650 mg Oral Q4H PRN Shreyas Altamirano PA-C 650 mg at 02/15/17 1533 bisacodyl (DULCOLAX) suppository 10 mg 10 mg Rectal Daily PRN OBEY Acuña C-Naltrexone 4.5 mg - Patient's Own Med 4.5 mg Oral Daily Shreyas Altamirano PA-C 4.5 mg at 02/15/17 1352 calcium carbonate (TUMS) chewable tablet 1,000 mg 1,000 mg Oral Q2H PRN Shreyas Altamirano PA-C cyclobenzaprine (FLEXERIL) tablet 10 mg 10 mg Oral Q8H PRN Shreyas Altamirano PA-C 10 mg at 02/16/17 0214 diphenhydrAMINE (BENADRYL) injection 12.5 mg 12.5 mg Intravenous Q4H PRN Shreyas Altamirano PA-C Or diphenhydrAMINE (BENADRYL) tablet 25 mg 25 mg Oral Q4H PRN Shreyas Altamirano PA-C Or diphenhydrAMINE (BENADRYL) 12.5 mg/5 mL liquid 25 mg 25 mg Oral Q4H PRN Shreyas Altamirano PA-C docusate sodium (COLACE) capsule 100 mg 100 mg Oral BID Shreyas Altamirano PA-C 1 00 mg at 02/15/172014 enalaprilat (VASOTEC) injection 1.25 mg 1.25 mg Intravenous Q6H PRN Shreyas andrade PA-C losartan (COZAAR) tablet 50 mg 50 mg Oral Daily Agusto Pereira MD 50 mg at 02/15/17 08 01 And hydroCHLOROthiazide (MICROZIDE) capsule 12.5 mg 12.5 mg Oral Daily Agusto Pereira MD 1 2.5 mg at 02/15/17 0801 hydroxychloroquine (PLAQUENIL) tablet 200 mg 200 mg Oral Daily Kyra Acuña-C 200 mg at 02/15/17 0801 labetalol (TRANDATE) 5 mg/mL injection 10 mg 10 mg Intravenous Q10 Min PRN Shreyas Peralta PA-C lactulose liquid 30 mL 30 mL Oral Daily PRN Shreyas Altamirano PA-C magnesium hydroxide (MILK OF MAGNESIA) 400 mg/5 mL suspension 30 mL 30 mL Oral BID PRN Shreyas Altamirano PA-C menthol (HALLS COUGH DROP) lozenge 1 lozenge 1 lozenge Buccal Q2H PRN Shreyas shannon PA-C methocarbamol (ROBAXIN) tablet 750 mg 750 mg Oral Q8H PRN Shreyas Altamirano PA-C 750 mg at 02/16/17 0620 metoclopramide (REGLAN) tablet 10 mg 10 mg Oral Q4H PRN Shreyas Altamirano PA-C morphine injection 1-2 mg 1-2 mg Intravenous Q1H PRN Shreyas Altamirano PA-C ondansetron (ZOFRAN ODT) disintegrating tablet 4 mg 4 mg Oral Q6H PRN Shreyas shannon PA-C 4 mg at 02/15/17 0932 ondansetron (ZOFRAN) injection 4 mg 4 mg Intravenous Q6H PRN DAMON Acuña 4 mg at 02/15/17 0538 oxyCODONE (ROXICODONE) tablet 5-10 mg 5-10 mg Oral Q4H PRN Shreyas Altamirano PA-C 5 mg at 02/16/17 0620 phenol (CHLORASEPTIC) spray 1-2 spray 1-2 spray Mouth/Throat Q3H PRAngella pastor PA-C polyethylene glycol (MIRALAX) powder 17 g 17 g Oral Daily PRN OBEY Acuña prochlorperazine (COMPAZINE) tablet 5 mg 5 mg Oral Q6H PRN Shreyas Altamirano PA-C senna (SENOKOT) tablet 8.6 mg 8.6 mg Oral BID Shreyas Altamirano PA-C 8.6 mg at 0 02/15/172014 sodium chloride 0.9% (NS) infusion Intravenous Continuous Shreyas Altamirano PA-C 50 mL/hr at 02/15/17 0437 ALLERGIES: Allergies Allergen Reactions Tramadol Nausea Only [...] Only Oxycodone Nausea Only Pregabalin Swelling Ankles PHYSICAL EXAMINATION: Temp: [36.4 C (97.5 F)-38.9 C (102 F)] 38.2 C (100.8 F) Pulse: [78-83] 83 Resp: [18-19] 19 BP: (121-141)/(56-64) 133/64 Intake/Output Summary (Last 24 hours) at 02/16/17 0742 Last data filed at 02/16/17 0620 Gross per 24 hour Intake 2101 ml Output 2255 ml Net -154 ml GENERAL: Ashly Santiago is in no acute distress with unlabored respirations. HEENT: HEAD/FACE: EYES: Normocephalic and atraumatic. There are no areas of recent trauma. Normal sclerae without icterus. CHEST: Clear. HEART: Regular. EXTREMITIES: No edema or swelling. SCD's BACK: The back incisions are dress and a drain is in place with expected output. NEUROLOGICAL EXAM: MENTAL STATUS: The patient is awake, alert, and oriented. She follows simple and complex commands. She speech is fluent, her comprehends speech well, and her repeats well. She has no apparent deficits with short or care home memory. MOTOR EXAM: Motor strength is stable SENSORY EXAM: Sensory exam is stable 24 HOUR LABS: All Component Based Labs None ASSESSMENT: NEUROSURGICAL DIAGNOSES: S/p lumbar fusion HOSPITAL/GENERAL DIAGNOSES: Past Medical History: Diagnosis Date Abdominal pain [...] Rheumatoid arthritis (HCC) Sacroiliitis (HCC) 09/04/2012 PLAN: S/p lumbar fusion, Hospital day 2 - Neurologically stable but pain control is an issue. Will adjust medication. - Oxycodone 5-20mg - Medically stable - Mobilize, PT/OT - SCD's - Working on BM/bowel function. Encouraged activity and medications to assist - Drain output is as expected. Continue drain - Disp: Likely home tomorrow. Check progression through today. ELECTRONICALLY SIGNED BY: Shreyas Altamirano PA-C, 02/16/2017 7:42 Shreyas Gilmore PA-C - 017 7:38 AM PDT [facility] NEUROSURGERY PROGRESS NOTE PATIENT NAME: Ashly Santiago AGE: 77 y.o. DATE OF SERVICE: 02/15/2017 7:38 S: The patient is doing well this AM. She complains of being sore in the low back, under co ntrol with medicine overall. She has been ambulating in the room. Voiding well. O: CURRENT MEDICATIONS: Current Facility-Administered Medications Medication Dose Route Frequency Provider Last Rate Last Dose acetaminophen (TYLENOL) tablet 650 mg 650 mg Oral Q4H PRN Shreyas Altamirano PA-C bisacodyl (DULCOLAX) suppository 10 mg 10 mg Rectal Daily PRN OBEY cAuña C-Naltrexone 4.5 mg - Patient's Own Med 4.5 mg Oral Daily Shreyas Altamirano PA-C calcium carbonate (TUMS) chewable tablet 1,000 mg 1,000 mg Oral Q2H PRN Shreyas Altamirano PA-C cyclobenzaprine (FLEXERIL) tablet 10 mg 10 mg Oral Q8H PRN Shreyas Altamirano PA-C diphenhydrAMINE (BENADRYL) injection 12.5 mg 12.5 mg Intravenous Q4H PRN Shreyas Altamirano PA-C Or diphenhydrAMINE (BENADRYL) tablet 25 mg 25 mg Oral Q4H PRN Shreyas Altamirano PA-C Or diphenhydrAMINE (BENADRYL) 12.5 mg/5 mL liquid 25 mg 25 mg Oral Q4H PRN Sheryas Altamirano PA-C docusate sodium (COLACE) capsule 100 mg 100 mg Oral BID Shreyas Altamirano PA-C 1 00 mg at 02/14/17 2033 enalaprilat (VASOTEC) injection 1.25 mg 1.25 mg Intravenous Q6H PRN Shreyas andrade PA-C losartan (COZAAR) tablet 50 mg 50 mg Oral Daily Agusto Pereira MD 50 mg at 02/14/17 14 47 And hydroCHLOROthiazide (MICROZIDE) capsule 12.5 mg 12.5 mg Oral Daily Agusto Pereira MD 1 2.5 mg at 02/14/17 1447 hydroxychloroquine (PLAQUENIL) tablet 200 mg 200 mg Oral Daily Kyra Acuña 200 mg at 02/14/17 1447 labetalol (TRANDATE) 5 mg/mL injection 10 mg 10 mg Intravenous Q10 Min PRN Shreyas Peralta PA-C lactulose liquid 30 mL 30 mL Oral Daily PRN Shreyas Altamirano PA-C magnesium hydroxide (MILK OF MAGNESIA) 400 mg/5 mL suspension 30 mL 30 mL Oral BID PRN Shreyas Altamirano PA-C menthol (HALLS COUGH DROP) lozenge 1 lozenge 1 lozenge Buccal Q2H PRN Shreyas shannon PA-C methocarbamol (ROBAXIN) tablet 750 mg 750 mg Oral Q8H PRN Shreyas Altamirano PA-C metoclopramide (REGLAN) tablet 10 mg 10 mg Oral Q4H PRN Shreyas Altamirano PA-C morphine injection 1-2 mg 1-2 mg Intravenous Q1H PRN Shreyas Altamirano PA-C ondansetron (ZOFRAN ODT) disintegrating tablet 4 mg 4 mg Oral Q6H PRN Shreyas shannon PA-C ondansetron (ZOFRAN) injection 4 mg 4 mg Intravenous Q6H PRN DAMON Acuña 4 mg at 02/15/17 0538 oxyCODONE (ROXICODONE) tablet 5-10 mg 5-10 mg Oral Q4H PRN Shreyas Altamirano PA-C 10 mg at 02/15/17 0536 phenol (CHLORASEPTIC) spray 1-2 spray 1-2 spray Mouth/Throat Q3H PRN Shreyas pastor PA-C polyethylene glycol (MIRALAX) powder 17 g 17 g Oral Daily PRN OBEY Acuña prochlorperazine (COMPAZINE) tablet 5 mg 5 mg Oral Q6H PRN Shreyas Altamirano PA-C senna (SENOKOT) tablet 8.6 mg 8.6 mg Oral BID Shreyas Altamirano PA-C 8.6 mg at 0 02/14/172032 sodium chloride 0.9% (NS) infusion Intravenous Continuous Shreyas Altamirano PA-C 50 mL/hr at 02/15/17 0437 ALLERGIES: Allergies Allergen Reactions Tramadol Nausea Only [...] Only Oxycodone Nausea Only Pregabalin Swelling Ankles PHYSICAL EXAMINATION: Temp: [36.4 C (97.5 F)-37.7 C (99.9 F)] 37.3 C (99.1 F) Pulse: [62-78] 78 Resp: [11-20] 18 BP: (102-141)/(46-70) 122/58 Intake/Output Summary (Last 24 hours) at 02/15/17 0738 Last data filed at 02/15/17 0546 Gross per 24 hour Intake 2932 ml Output 1120 ml Net 1812 ml GENERAL: Ashly Santiago is in no acute distress with unlabored respirations. HEENT: HEAD/FACE: EYES: Normocephalic and atraumatic. There are no areas of recent trauma. Normal sclerae without icterus. CHEST: Clear. HEART: Regular. EXTREMITIES: No edema or swelling. SCD's BACK: The back incisions are dress and a drain is in place with expected output. NEUROLOGICAL EXAM: MENTAL STATUS: The patient is awake, alert, and oriented. She follows simple and complex commands. She speech is fluent, her comprehends speech well, and her repeats well. 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 MOTOR EXAM: Motor strength is stable SENSORY EXAM: Sensory exam is stable 24 HOUR LABS: All Component Based Labs None ASSESSMENT: NEUROSURGICAL DIAGNOSES: S/p lumbar fusion HOSPITAL/GENERAL DIAGNOSES: Past Medical History: Diagnosis Date Abdominal pain [...] Rheumatoid arthritis (HCC) Sacroiliitis (HCC) 09/04/2012 PLAN: S/p lumbar fusion, Hospital day 1 - Neurologically stable and pain control is appropriate. - Medically stable - Mobilize, PT/OT - SCD's - Working on BM/bowel function. Encouraged activity and medications to assist - Drain output is as expected. Continue drain - Disp: Likely home in 1-2 days ELECTRONICALLY SIGNED BY: Shreyas Altamirano PA-C, 02/15/2017 7:38 documented in this encounter Plan of Treatment +--------+ + + + + | Date | Type | Specialty | Care Team | Description | +--------+ + + + + | 05/19/ | Hospital | Radiology | Dennys Pineda PA-C | | | 2018 | Encounter | | [address] | | | | | | [address] [facility] | | | | | | [place] [address] | | | | | | [phone] | | | | | | | | | | | | Security Police OfficerNaomi | | +--------+ + + + + + +------+--------+ + + | Name | Type | Priori | Associated Diagnoses | Order Schedule | | | | ty | | | + +------+--------+ + + | DME: Walker | DME | Routin | Gait abnormality | DME 1 Time for 1 | | | | e | | Occurrences starting | | | | | | 02/14/2017 until | | | | | | 02/14/2017 | + +------+--------+ + + documented as of this encounter Procedures + +--------+ + + + | Procedure Name | Priori | Date/Time | Associated Diagnosis | Comments | | | ty | | | | + +--------+ + + + | RESPIRATORY THERAPY | Routin | 02/14/2017 | | | | COMMUNICATION | e | 12:56 PM | | | | | | PDT | | | + +--------+ + + + | XR LUMBAR SPINE 2 OR | STAT | 02/14/2017 | | Results for this | | 3 VW | | 12:27 PM | | procedure are in the | | | | PDT | | results section. | + +--------+ + + + | FL FELIPA STATS NO | Routin | 02/14/2017 | | Results for this | | CHARGE | e | 10:06 AM | | procedure are in the | | | | PDT | | results section. | + +--------+ + + + | FUSION LUMBAR W/ | | 02/14/2017 | Lumbar | | | LATERAL APPROACH | | 7:29 AM | radiculopathy | | | (XLIF) | | PDT | (M54.16), Facet | | | | | | arthritis of lumbar | | | | | | region (HCC) | | | | | | (M46.96), Chronic | | | | | | low back pain with | | | | | | sciatica, sciatica | | | | | | laterality | | | | | | unspecified, | | | | | | unspecified back | | | | | | pain laterality | | | | | | (M54.40, G89.29), | | | | | | Degenerative disc | | | | | | disease, lumbar | | | | | | (M51.36), | | | | | | Sacroiliitis (HCC) | | | | | | (M46.1), 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 | | | | | | (M99.83), Scoliosis | | | | | | of lumbar spine, | | | | | | unspecified | | | | | | scoliosis type | | | | | | (M41.9) | | + +--------+ + + + +---+--------+ | | Case | | | Notes | | | | | | Origin | | | al | | | Reques | | | t | | | Inform | | | ation | | | Sent | | | Over | | | 02/06/ | | | 2016:I | | | nstrum | | | ents: | | | c-arm, | | | | | | drill, | | | | | | micros | | | cope, | | | METRxB | | | iologi | | | cs: | | | bmp, | | | grafto | | | nImpla | | | nts: | | | voyage | | | r/caps | | | tone/c | | | ontrol | | | Table: | | | | | | [place] | | | n [place] | | | Frame | | | and | | | OSI | | | [place] | | | Flat | | | TopRep | | | : | | | Addy | | | [place] | | | Est | | | time: | | | 180min | +---+--------+ | | | | | Specia | | | l | | | Needs | | | Addy | | | | | | [place] | | | - | | | Voyage | | | r, | | | Capsto | | | ne, | | | Contro | | | lTable | | | : | | | [place] | | | n | | | [place], | | | OSI | | | [place] | | | Flat | | | Top | +---+--------+ documented in this encounter Results XR Lumbar Spine 2 or 3 Vw (02/14/2017 12:27 PM PDT) + + | Specimen | + + | | + + + + + | Narrative | Performed At | + + + | XR LUMBAR SPINE 2 OR 3 VW 02/14/2017 12:27 PM HISTORY: post op | [facility] | | lumbar surgery. COMPARISON: Multiple priors. FINDINGS: There | | | is interval placement of hardware for posterior fusion from L4 through | | | S1 with spacer hardware at these levels. The hardware are intact. | | | Mild left curvature of the lumbar spine is observed that has | | | improved. There is mild to moderate spondylosis. Mild anterolisthesis | | | is noted of L5 over S1. Bone mineralization is normal. Vertebral | | | body height are preserved with no evidence for compression fractures. | | | Mild disc narrowing is at L2-3 with vacuum phenomenon. Facet joints | | | are intact. Visualized ribs and pelvic osseous structures show no | | | acute findings. Cholecystectomy clips are seen. There is a left | | | posterior drainage catheter. Mild degenerative changes are visualized | | | of the hips. IMPRESSION - Interval posterior fusion from L4 | | | through S1. Dictated and Signed by: Saad Noe MD | | | Electronically signed: 02/14/2017 1:17 PM | | + + + + + | Procedure Note | + + | Hong, Rad Results In - 02/14/2017 1:20 PM PDT XR LUMBAR SPINE 2 OR 3 VW 02/14/2017 | | 12:27 PMHISTORY: post op lumbar surgery.COMPARISON: Multiple priors.FINDINGS:There is | | interval placement of hardware for posterior fusion from L4 through S1with spacer | | hardware at these levels. The hardware are intact. Mild leftcurvature of the lumbar | | spine is observed that has improved. There is mild tomoderate spondylosis. Mild | | anterolisthesis is noted of L5 over S1. Bonemineralization is normal. Vertebral body | | height are preserved with no evidencefor compression fractures. Mild disc narrowing is | | at L2-3 with vacuumphenomenon. Facet joints are intact. Visualized ribs and pelvic | | osseousstructures show no acute findings. Cholecystectomy clips are seen. There is aleft | | posterior drainage catheter. Mild degenerative changes are visualized ofthe | | hips.IMPRESSION -Interval posterior fusion from L4 through S1.Dictated and Signed by: | | Saad Noe MD Electronically signed: 02/14/2017 1:17 PM | |for compression fractures. Mild disc narrowing is at L2-3 with vacuum | |phenomenon. Facet joints are intact. Visualized ribs and pelvic osseous | |structures show no acute findings. Cholecystectomy clips are seen. There is a | |left posterior drainage catheter. Mild degenerative changes are visualized of | |the hips. | | | |IMPRESSION - | |Interval posterior fusion from L4 through S1. | | | |Dictated and Signed by: Saad Noe MD | | Electronically signed: 02/14/2017 1:17 PM | + + + +---------+ + + | Performing | Address | City/State/Zipcode | Phone Number | | Organization | | | | + +---------+ + + | [facility] | | | | + +---------+ + + GISELLE EdenilsonTracieStef Chen No Charge (02/14/2017 10:06 AM PDT) + + | Specimen | + + | | + + + + + | Narrative | Performed At | + + + | No Radiologist interpretation, please see Chart Review. | [facility] | + + + + +---------+ + + | Performing | Address | City/State/Zipcode | Phone Number | | Organization | | | | + +---------+ + + | [facility] | | | | + +---------+ + + documented in this encounter Visit Diagnoses Not on filedocumented in this encounter Administered Medications + +--------+ +--------+------+------+ | Medication Order | MAR | Action | Dose | Rate | Site | | | Action | Date | | | | + +--------+ +--------+------+------+ | acetaminophen (TYLENOL) tablet | Given | 02/16/20 | 650 mg | | | | 650 mg 650 mg, Oral, EVERY 4 | | 17 3:33 | | | | | HOURS PRN, Pain, Fever, Starting | | PM PDT | | | | | 02/14/17 at 1240, | | | | | | | Post-op/Phase II | | | | | | + +--------+ +--------+------+------+ +---+---+ | | | +---+---+ + +-------+ +---------+---+ + | bacitracin injection PRN, | Given | 02/15/20 | 50,000 | | Surgical | | Starting Sun02/14/17 at 0805, | | 17 8:05 | Units | | Site | | Intra-op | | AM PDT | | | | + +-------+ +---------+---+ + +---+---+ | | | +---+---+ + +-------+ +--------+---+ + | bupivacaine (liposomal) | Given | 02/15/20 | 20 mLs | | Surgical | | (EXPAREL) 1.3% injection PRN, | | 17 8:04 | | | Site | | Starting Sun02/14/17 at 0804, | | AM PDT | | | | | Intra-op | | | | | | + +-------+ +--------+---+ + +---+---+ | | | +---+---+ + +-------+ +--------+---+ + | bupivacaine 0.5%-EPINEPHrine | Given | 02/15/20 | 20 mLs | | Surgical | | 1:200,000 injection PRN, | | 17 8:05 | | | Site | | Starting 02/14/17 at 0805, | | AM PDT | | | | | Intra-op | | | | | | + +-------+ +--------+---+ + +---+---+ | | | +---+---+ + +-------+ +--------+---+---+ | C-Naltrexone 4.5 mg - Patient's | Given | 02/18/20 | 4.5 mg | | | | Own Med 4.5 mg, Oral, DAILY, | | 17 8:18 | | | | | First dose on Agustina 02/15/17 at | | AM PDT | | | | | 0900, PT's OWN MED. In Pyxis | | | | | | | patient specific bin. RETURN TO | | | | | | | PATIENT AT DISCHARGE. Verified by | | | | | | | Pharmacist Nazanin Trejo, [facility] | | | | | | | 02/15/2017, Post-op/Phase II, | | | | | | | Generic Name: NALTREXONE HCL PO, | | | | | | | Length of Therapy: Indefinite, | | | | | | | Reason for Non-Formulary: opioid | | | | | | + +-------+ +--------+---+---+ +-------+ +--------+---+---+ | Given | 02/17/20 | 4.5 mg | | | | | 17 1:32 | | | | | | PM PDT | | | | +-------+ +--------+---+---+ | Given | 02/16/20 | 4.5 mg | | | | | 17 1:52 | | | | | | PM PDT | | | | +-------+ +--------+---+---+ +---+---+ | | | +---+---+ + +-------+ +-------+---+---+ | cyclobenzaprine (FLEXERIL) | Given | 02/18/20 | 10 mg | | | | tablet 10 mg 10 mg, Oral, EVERY | | 17 8:14 | | | | | 8 HOURS PRN, Muscle spasms, | | AM PDT | | | | | Starting 02/14/17 at 1240, Use | | | | | | | if methocarbamol ineffective or | | | | | | | not ordered., Post-op/Phase II | | | | | | + +-------+ +-------+---+---+ +-------+ +-------+---+---+ | Given | 02/17/20 | 10 mg | | | | | 17 1:31 | | | | | | PM PDT | | | | +-------+ +-------+---+---+ | Given | 02/17/20 | 10 mg | | | | | 17 2:14 | | | | | | AM PDT | | | | +-------+ +-------+---+---+ + +---+ | | | + +---+ | diphenhydrAMINE (BENADRYL) 12.5 | | | mg/5 mL liquid 25 mg 25 mg, | | | Oral, EVERY 4 HOURS PRN, Itching, | | | Starting Sun02/14/17 at 1240, | | | Oral route is preferred., | | | Post-op/Phase II | | + +---+ | | | + +---+ | diphenhydrAMINE (BENADRYL) | | | injection 12.5 mg 12.5 mg, | | | Intravenous, EVERY 4 HOURS PRN, | | | Itching, Starting Sun02/14/17 at | | | 1240, Oral route is preferred., | | | Post-op/Phase II | | + +---+ | | | + +---+ | diphenhydrAMINE (BENADRYL) | | | tablet 25 mg 25 mg, Oral, EVERY | | | 4 HOURS PRN, Itching, Starting | | | Sun02/14/17 at 1240, Oral route | | | is preferred., Post-op/Phase II | | + +---+ | | | + +---+ + +-------+ +--------+---+---+ | docusate sodium (COLACE) | Given | 02/18/20 | 100 mg | | | | capsule 100 mg 100 mg, Oral, | | 17 8:14 | | | | | TIMES DAILY, First dose on Sun | | AM PDT | | | | | 02/14/17 at 1300, First line agent | | | | | | | for constipation, Post-op/Phase | | | | | | | II | | | | | | + +-------+ +--------+---+---+ +-------+ +--------+---+---+ | Given | 02/17/20 | 100 mg | | | | | 17 8:42 | | | | | | PM PDT | | | | +-------+ +--------+---+---+ | Given | 02/17/20 | 100 mg | | | | | 17 1:31 | | | | | | PM PDT | | | | +-------+ +--------+---+---+ +---+---+ | | | +---+---+ + +-------+ +---------+---+---+ | hydroCHLOROthiazide (MICROZIDE) | Given | 02/18/20 | 12.5 mg | | | | capsule 12.5 mg 12.5 mg, Oral, | | 17 8:14 | | | | | DAILY, First dose on Sun02/14/17 | | AM PDT | | | | | at 1315 | | | | | | + +-------+ +---------+---+---+ +-------+ +---------+---+---+ | Given | 02/17/20 | 12.5 mg | | | | | 17 1:32 | | | | | | PM PDT | | | | +-------+ +---------+---+---+ | Given | 02/16/20 | 12.5 mg | | | | | 17 8:01 | | | | | | AM PDT | | | | +-------+ +---------+---+---+ +---+---+ | | | +---+---+ + +-------+ +--------+---+---+ | hydroxychloroquine (PLAQUENIL) | Given | 02/18/20 | 200 mg | | | | tablet 200 mg 200 mg, Oral, | | 17 8:14 | | | | | DAILY, First dose on Sun02/14/17 | | AM PDT | | | | | at 1300, Post-op/Phase II | | | | | | + +-------+ +--------+---+---+ +-------+ +--------+---+---+ | Given | 02/17/20 | 200 mg | | | | | 17 1:36 | | | | | | PM PDT | | | | +-------+ +--------+---+---+ | Given | 02/16/20 | 200 mg | | | | | 17 8:01 | | | | | | AM PDT | | | | +-------+ +--------+---+---+ +---+---+ | | | +---+---+ + +-------+ +--------+---+---+ | lactulose liquid 30 mL 30 mL, | Given | 02/17/20 | 30 mLs | | | | Oral, DAILY PRN, Constipation, | | 17 8:42 | | | | | Starting Sun02/14/17 at 1240, If | | PM PDT | | | | | docusate, senna, and polyethylene | | | | | | | glycol ineffective x 24 hours or | | | | | | | not ordered, Post-op/Phase II | | | | | | + +-------+ +--------+---+---+ +---+---+ | | | +---+---+ + +-------+ +-------+---+---+ | losartan (COZAAR) tablet 50 mg | Given | 02/18/20 | 50 mg | | | | 50 mg, Oral, DAILY, First dose | | 17 8:14 | | | | | on Sun02/14/17 at 1315 | | AM PDT | | | | + +-------+ +-------+---+---+ +-------+ +-------+---+---+ | Given | 02/17/20 | 50 mg | | | | | 17 1:32 | | | | | | PM PDT | | | | +-------+ +-------+---+---+ | Given | 02/16/20 | 50 mg | | | | | 17 8:01 | | | | | | AM PDT | | | | +-------+ +-------+---+---+ +---+---+ | | | +---+---+ + +-------+ +------+---+---+ | ondansetron (ZOFRAN ODT) | Given | 02/18/20 | 4 mg | | | | disintegrating tablet 4 mg 4 mg, | | 17 4:56 | | | | | Oral, EVERY 6 HOURS PRN, Nausea, | | PM PDT | | | | | Vomiting, Starting 02/14/17 | | | | | | | at 1240, First line agent, | | | | | | | Post-op/Phase II | | | | | | + +-------+ +------+---+---+ +-------+ +------+---+---+ | Given | 02/17/20 | 4 mg | | | | | 17 9:23 | | | | | | AM PDT | | | | +-------+ +------+---+---+ | Given | 02/16/20 | 4 mg | | | | | 17 9:32 | | | | | | AM PDT | | | | +-------+ +------+---+---+ +---+---+ | | | +---+---+ + +-------+ +------+---+---+ | ondansetron (ZOFRAN) injection | Given | 02/18/20 | 4 mg | | | | 4 mg 4 mg, Intravenous, EVERY 6 | | 17 5:00 | | | | | HOURS PRN, Nausea, Vomiting, | | AM PDT | | | | | Starting 02/14/17 at 1240, | | | | | | | First line agent Use PO option | | | | | | | unless NPO status or unable to | | | | | | | tolerate, Post-op/Phase II | | | | | | + +-------+ +------+---+---+ +-------+ +------+---+---+ | Given | 02/16/20 | 4 mg | | | | | 17 5:38 | | | | | | AM PDT | | | | +-------+ +------+---+---+ | Given | 02/15/20 | 4 mg | | | | | 17 11:12 | | | | | | PM PDT | | | | +-------+ +------+---+---+ +---+---+ | | | +---+---+ + +-------+ +------+---+---+ | oxyCODONE (ROXICODONE) tablet | Given | 02/18/20 | 5 mg | | | | 5-20 mg 5-20 mg, Oral, EVERY 4 | | 17 4:56 | | | | | HOURS PRN, Pain, Starting Fri | | PM PDT | | | | | 02/16/17 at 0745, Post-op/Phase II | | | | | | + +-------+ +------+---+---+ +-------+ +------+---+---+ | Given | 02/18/20 | 5 mg | | | | | 17 8:14 | | | | | | AM PDT | | | | +-------+ +------+---+---+ | Given | 02/17/20 | 5 mg | | | | | 17 5:39 | | | | | | PM PDT | | | | +-------+ +------+---+---+ +---+---+ | | | +---+---+ + +-------+ +--------+---+---+ | senna (SENOKOT) tablet 8.6 mg | Given | 02/18/20 | 8.6 mg | | | | 8.6 mg, Oral, 2 TIMES DAILY, | | 17 8:14 | | | | | First dose on Sun02/14/17 at | | AM PDT | | | | | 1300, If docusate ineffective or | | | | | | | not ordered, Post-op/Phase II | | | | | | + +-------+ +--------+---+---+ +-------+ +--------+---+---+ | Given | 02/17/20 | 8.6 mg | | | | | 17 8:42 | | | | | | PM PDT | | | | +-------+ +--------+---+---+ | Given | 02/17/20 | 8.6 mg | | | | | 17 1:31 | | | | | | PM PDT | | | | +-------+ +--------+---+---+ +---+---+ | | | +---+---+ + +---------+ +---+ +---+ | sodium chloride 0.9% (NS) | New Bag | 02/16/20 | | 50 mL/hr | | | infusion at 100 mL/hr, | | 17 4:37 | | | | | Intravenous, CONTINUOUS, Starting | | AM PDT | | | | | 02/14/17 at 1300, | | | | | | | Post-op/Phase II | | | | | | + +---------+ +---+ +---+ + + +---+ +---+ | Rate/Dose Change | 02/15/20 | | 50 mL/hr | | | | 17 11:24 | | | | | | PM PDT | | | | + + +---+ +---+ | Rate/Dose Change | 02/15/20 | | 50 mL/hr | | | | 17 8:37 | | | | | | PM PDT | | | | + + +---+ +---+ +---+---+ | | | +---+---+ documented in this encounter
--- OUTSIDE RECORDS SUMMARY | ~2019-05-17 | XMS | Encounter Summary ---
Demographics + + + | Address | [address] | | | [place] [address] | + + + | Home Phone | | + + + | Preferred Language | Unknown | + + + | Marital Status | | + + + | Mu-Ism Affiliation | 1077 | + + + | Race | Unknown | + + + | Ethnic Group | Unknown | + + + Author + + + | Author | [facility] | | | and Azana | + + + | Organization | [facility] | [...] [place], [place] | | | | | [address] | | + + + + + | Helena Doherty | ECON | [place], | | | | | [place] [address] | | + + + + + Care Team Providers + +------+ + | Care Final Inspector Truck Trailer Name | Role | Phone | + +------+ + | Nathan Luevano DO | PCP | | + +------+ + Reason for Visit + + + | Reason | Comments | + + + | Therapy Daily | | | Treatment | | + + + Evaluate & Treat (Routine) + +--------+ + + + + | Status | Reason | Specialty | Diagnoses / | Referred By | Referred To | | | | | Procedures | Contact | Contact | + +--------+ + + + + | Authorized | | Physical | Diagnoses | | [place], | | | | Therapy / | M70.62 | Eleazar, | Aiyana S, PT | | | | Rehabilitatio | (ICD-10-CM) | Sophia K, | [address] | | | | n | - | PA-C [address] | | | | | Trochanteric | [address] | [place] | | | | | bursitis, | Ave | [address] Phone: | | | | | left hip | [place], | [phone] | | | | | M70.61 | [place] | Fax: | | | | | (ICD-10-CM) | [address] | [phone] | | | | | - | Phone: | | | | | | Trochanteric | [phone] | | | | | | bursitis, | Fax: | | | | | | right hip | [phone] | | | | | | M79.7 | | | | | | | (ICD-10-CM) | | | | | | | - | | | | | | | Fibromyalgia | | | | | | | Procedures | | | | | | | RHB PT | | | | | | | OFFICE VISIT | | | + +--------+ + + + + Encounter Details +--------+---------+ + + + | Date | Type | Department | Care Team | Description | +--------+---------+ + + + | 07/29/ | Office | [facility] | Schmidt[place], | Fibromyalgia | | 2019 | Visit | [facility] | Sophia Kingsley PA-C | (Primary Dx); Neck | | | | [address] | [address] | pain; Trochanteric | | | | [place] | [place], [place] | bursitis of both | | | | [address] | [address] | hips | | | | [phone] | [phone] | | | | | | | | | | | | Aiyana Fish S, PT | | | | | | [address] | | | | | | [place] | | | | | | [address] | | | | | | | [...] encounter Progress Notes Aiyana Fish, PT - 07/29/2018 1:30 PM PSTFormatting of this note might be different fro m the original. [facility] [address] [place] [address] Physical Therapy Daily Treatment Note Date: 07/29/2018 Patient Information Patient Name: Ashly Santiago Date of : 1940 Age: 78 y.o. Encounter Diagnoses Code Name Primary? M79.7 Fibromyalgia Yes M54.2 Neck pain M70.61, M70.62 Trochanteric bursitis of both hips Date of Onset: 04/10/2018 Referring Provider: Sophia Bush PA-C Rehab Precautions Office Visit from 04/17/2018 in [facility] PT OP Rehab Precautions Precautions None Rehab Learning Style Office Visit from 04/17/2018 in [facility] PT OP Office Visit fro m 10/19/2016 in [facility] PT OP Learning Style Patient's [employer] Learning Style listening, reading, observation, performance of task lis tening, reading, observation, performance of task Start Time: 1330 Stop time: 1424 Duration: 54 minutes Timed Treatment Codes: 54 minutes # of PT Visits to Date: 13 Subjective: Pt reports that she has had a good week. Her right knee has been consistently pain free no w and her neck continues to do well. Her neck surgery has been approved but she is not sure she wants to have at this time as she is feeling so much better. I told her she needs to d iscuss the risks of putting it off with Dr Pereira Pain Assessment: Pain Rating Pre Assessment: 4 Pain Rating Post Assessment: 3 Location: low back and above the iliac crests Objective: Manual Treatment: Myofascial release and positional release therapy: Left iliopsoas, right ITB and right hip, Dural tube mobilization, right UQ and cervical spine Assessment: Good response to treatment. Fascial release resulted in improved mobility in the fascial s train pattern eminating from the right scapular thoracic region extending into the hips, low back and neck and lower pain level reported to be 3/10 following the session. Plan: Continue with manual therapy and development of home program Electronically signed by: Aiyana Fish PT, 07/29/2018 14:28 Patient Name: Ashly Santiago/: 1940/ documented in this en counter Plan of Treatment +--------+ + + + + | Date | Type | Specialty | Care Team | Description | +--------+ + + + + | 05/19/ | Hospital | Radiology | Dennys Pineda PA-C | | | 2019 | Encounter | | [address] | | | | | | [address] | | | | | | [place] [address] | | | | | | [phone] | | | | | | | | | | | | Section RepairerNaomi | | +--------+ + + + + documented as of this encounter Visit Diagnoses + + | Diagnosis | + + | Fibromyalgia - Primary Mylagia and myositis, unspecified | + + | Neck pain Cervicalgia | + + | Trochanteric bursitis of both hips Enthesopathy of hip region | + + documented in this encounter"
--- OUTSIDE RECORDS SUMMARY | ~2019-05-17 | XMS | Encounter Summary ---
Demographics + + + | Address | [address] | | | [place] [address] | + + + | Home Phone [...] + | Author | [facility] | | | and Azana | + + + | Organization | [facility] | | | and Azana [...] [place], [place] | | | | | [address] | | + + + + + | Helena Doherty | ECON | [place], | | | | | [place] [address] | | + + + + + Care Team Providers + +------+ + | Care City Supervisor Name | Role | Phone | [...] | | | | | | | SC | | | | | | | COLONOSCOPY | | | | | | | FLX DX | | | | | | | W/COLLJ SPEC | | | | | | | WHEN PFRMD | | | | | | | SC | | | | | | | COLONOSCOPY | | | | | | | W/BIOPSY | | | | | | | SINGLE/MULTI | | | | | | | PLE SC | | | | | | | COLSC FLX | | | | | | | W/RMVL OF | | | | | | | TUMOR POLYP | | | | | | | LESION SNARE | | | | | | | TQ SC | | | | | | | [...] +--------+---------+ + + + | 05/23/ | Surgery | [facility] | Joshua Hilliard MD | COLONOSCOPY | | 2017 | | MED CTR MP INTRA OP | [address], [place] | | | | | [address] | [address] [place] | | | | | [place], [place] | [address] | | | | | [address] | | | | | | [phone] | | | +--------+---------+ + + + [...] | | | | | [address] [facility] | | | | | | [place] [address] | | | | | | [phone] | | | | | | | | | | | | Patient Support Representative, [place] | | +--------+ + + + [...] 05/23/2017 | PROVATION | | 12:52 PMMRN: [id number] #: [id number] of : | | | 1940Admit Type: AmbulatoryAge: 77Room: [facility] 01Gender: FemaleNote | | | Status: FinalizedAttending MD: Joshua Hilliard , MDProcedure: | | | ColonoscopyIndications: Clinically significant diarrhea | | | of unexplained origin, Change in bowel | | | habitsProviders: Joshua Hilliard MD, Mary Abraham | | | ILIR Wahl, Wendy Szymanski, | | | Emu Farmer, Phu Manning MD (Anesthesia | | | [...] | | | the anesthesiologist and the processing technician in the endoscopy suite. | | [...] Scope In: 1:57:41 PMScope Out: 2:25:20 PM [facility]. | | | [facility], [address] [place] [address] | | | [phone] | | | - No aspirin, ibuprofen, [...] |Scope Out: 2:25:20 PM | | | [facility]. [facility], [address] [place] [address] | | | [address] | | + + -+ + +---------+ [...] Negative for high grade dysplasia and malignancy. TJB:[facility]:C2NR | | | GROSS DESCRIPTION: Received in [...] the requisition are five | | | yymelo-qpdc-qzz tissue fragments measuring from 0.25-0.4 cm, | | | submitted, all in (B1). C. Received in formalin labeled "Ashly | | | Santiago" and "sigmoid polyp" on the requisition is a 0.3 x 0.2 x 0.2 cm | | | pink-morgan tissue fragment, submitted, all into (C1). ka:CLR:[facility] | | | PERFORMING LABORATORY: Tissue processing and slide preparation were | | | performed by [employer], [address], [facility] | | | [place] [address] (Principal Associate: Albaro Eric M.D. CLIA#: | | | [id number]). Professional interpretation was performed by [facility] | | | [employer], [address], [place] [address] | | | (Principal Associate: Albaro Eric M.D.; CLIA#: [id number]). | | | Diagnostician: Alf Lobo MD Pathologist Electronically | | | Signed 05/25/2017 | | + + + + +---------+ + + | Performing | Address | City/State/[facility] | Phone Number | | Organization | | | | + +---------+ + + | [facility] | | | | | [facility] | | | | + +---------+ + + documented in this encounter Visit Diagnoses Not on filedocumented in this encounter Administered Medications + +---------+ [...]
--- OUTSIDE RECORDS SUMMARY | ~2019-05-17 | XMS | Encounter Summary ---
Demographics + + + | Address | [address] [facility] [address] [facility] | | | [place] [address] | + + + | Home Phone | | + + + | Preferred Language | Unknown | + + + | Marital Status | | + + + | Amish Affiliation | [phone] | + + + | Race | Unknown | + + + | Ethnic Group | Unknown | + + + Author + + + | Author | [facility] | | | and Azana | + + + | Organization | [facility] | | | and Azana [...] [place], [place] | | | | | [address] | | + + + + + | Helena Doherty | ECON | [place], | | | | | [place] [address] | | + + + + + Care Team Providers + +------+ + | Care Fire Alarm Technician Name | Role | Phone | + [...] - | PA-C [address] | | | | | Trochanteric | [address] | [place] | | | | | bursitis, | Ave | [address] Phone: | | | | | left hip | [place], | [phone] | | | | | M70.61 | [place] | Fax: | | | | | (ICD-10-CM) | [address] | [phone] | | | | | - | Phone: | | | | | | Trochanteric | [phone] | | | | | | bursitis, | Fax: | | | | | | right hip | [phone] | | | | | | M79.7 [...] Description | +--------+---------+ + + + | 07/18/ | Office | [facility] [place] | [place], | Fibromyalgia | | 2019 | Visit | [facility] | Sophia Kingsley PA-C | (Primary Dx); Neck | | | | [address] | [address] | pain; Trochanteric | | | | [place] | [place], [place] | bursitis of both | | | | [address] | [address] | hips | | | | [phone] | [phone] | | | | | | | [...] encounter Progress Notes Aiyana Fish, PT - 07/18/2018 1:30 PM PSTFormatting of this note might be different fro m the original. [facility] [address] [place] [address] Physical Therapy Daily Treatment Note Date: 07/18/2018 Patient Information Patient Name: Ashly Santiago Date of : 1940 Age: 78 y.o. Encounter Diagnoses Code Name Primary? M79.7 Fibromyalgia Yes M54.2 Neck pain M70.61, M70.62 Trochanteric bursitis of both hips Date of Onset: 04/10/2018 Referring Provider: Sophia Bush PA-C Rehab Precautions Office Visit from 04/17/2018 in [facility] PT OP Rehab Precautions Precautions None Rehab Learning Style Office Visit from 04/17/2018 in [facility] PT OP Office Visit fro m 10/19/2016 in [facility] PT OP Learning Style Patient's Optimum Learning Style listening, reading, observation, performance of task lis tening, reading, observation, performance of task Start Time: 1318 Stop time: 1413 Duration: 55 minutes Timed Treatment Codes: 55 minutes # of PT Visits to Date: 11 Subjective: Pt has seen Dr. Pereira and he is recommending surgery for her neck given that she does have so me cord compression at C5-7 and mild subluxation of C3. She had an injection in her right k nee and so that is feeling better. Pain Assessment: Pain Rating Pre Assessment: 2 Location: low back Objective: Manual Treatment: Myofascial release and positional release therapy: Both hips, sacrum, up per and mid thoracic spine, cervical spine Assessment: Good response to treatment. Fascial release resulted in improved mobility in the fascial s train pattern in her mid thoracic spine following the session. Plan: Continue with manual therapy and development of home program Electronically signed by: Aiyana Fish PT, 07/18/2018 14:20 Patient Name: Ashly Santiago/: 1940/ documented in [...] | | | | | [address] | | | | | | [place] [address] | | | | | | [phone] | | | | | | | | | | | | Antisubmarine Weapons OfficerNaomi | | +--------+ + + + [...]
--- OUTSIDE RECORDS SUMMARY | ~2019-05-17 | XMS | Encounter Summary ---
Demographics + + + | Address | [address] | | | [place] [address] | + + + | Home Phone | | + + + | Preferred Language | Unknown | + + + | Marital Status | | + + + | Jainism Affiliation | Unknown | + + + | Race | White | + + + | Ethnic Group | Not or | + + + Author + + + | Author | [facility] | + + + | Organization | [facility] | + + + | Address | Unknown | + + + | Phone | Unavailable | + + + Support + + +---------+ + | Name | Relationship | Address | Phone | + + +---------+ + | Alon Santiago | ECON | Unknown | | + + +---------+ + Care Team Providers + +------+ + | Care Computer Support Analyst Name | Role | Phone | + +------+ + | Thee Boss MD | PCP | | + +------+ + Reason for Visit + + + | Reason | Comments | + + + | Fibromyalgia | | + + + | Follow-up visit | | + + + Office Visit - E/M Services (Routine) +--------+--------+ + + + + | Status | Reason | Specialty | Diagnoses / | Referred By | Referred To | | | | | Procedures | Contact | Contact | +--------+--------+ + + + + | Closed | | Rheumatology | Diagnoses | | Deodhar, | | | | | Rheumatoid | Eleazar, | MD Colt | | | | | arthritis(71 | Sophia K, | [address] | | | | | 4.0) ([facility]) | PA [address] | [address] | | | | | Myalgia and | [address] | [address] [place], | | | | | myositis, | [place], | [place] | | | | | unspecified | [place] [address] | [address] | | | | | Procedures | Phone: | Phone: | | | | | [place] | [phone] | [phone] | | | | | OFFICE/OUTPT | Fax: | Fax: | | | | | | [phone] | [phone] | | | | | VISIT,ESTLE | | | | | | | PASQUALE III | | | +--------+--------+ + + + + Encounter Details +--------+---------+ + + + | Date | Type | Department | Care Team | Description | +--------+---------+ + + + | 09/07/ | Office | Rheumatology at | Tavia Zuniga | Fibromyalgia | | 2015 | Visit | [facility] | Kinga, SUPERVISOR RUBBER COVERING [address] | (Primary Dx); | | | | [address] | [address] | Rheumatoid arthritis | | | | Amara Chatman Mailcode: | [place], [place] | | | | | [address] Physician's | [address] | | | | | Francy, [address] | [phone] | | | | | [place], [place] | | | | | | [address] | | | | | | [phone] | | | +--------+---------+ + + + [...] + + + | Blood Pressure | 124/65 | 09/07/2014 2:52 PM | | | | | PDT | | + + + + + | Pulse | 77 | 09/07/2014 2:52 PM | | | | | PDT [...] + + + + | Weight | 92.1 kg (203 lb) | 09/07/2014 2:52 PM | | | | | PDT | | + + + + + | Height | - | - | | + + + + + | Body Mass Index | 33.78 | 06/02/2014 8:43 AM | | | | | PST | | + + + + + documented in this encounter Patient Instructions Patient Instructions Tavia Zuniga, SUPERVISOR RU[employer] COVERING - 09/07/2014 3:30 PM PDT [email or web address] adapted for fibromyalgia Hip Bursitis: After Your Visit Your Care Instructions Bursitis is inflammation of the bursa. A bursa is a small sac of fluid that cushions a join t and helps it move easily. A bursa sits between a bone in the hip and the muscles and tendo ns in the thigh and buttock. Injury or overuse of the hip can cause bursitis. Activities sue t can lead to bursitis include twisting and rapid joint movement. Bursitis can cause hip sharmila n. Bursitis usually gets better if you avoid the activity that caused it. If pain lasts or get s worse despite home treatment, your doctor may draw fluid from the bursa through a needle. This may relieve your pain and help your doctor know if you have an infection. If so, your d octor will prescribe antibiotics. If you have inflammation only, you may get a corticosteroi d shot to reduce swelling and pain. Sometimes surgery is needed to drain or remove the bursa . Follow-up care is a grajeda part of your treatment and safety. Be sure to make and go to all ap pointments, and call your doctor if you are having problems. It s also a good idea to know your test results and keep a list of the medicines you take. How can you care for yourself at home? Put ice or a cold pack on your hip for 10 to 20 minutes at a time. Put a thin cloth betw een the ice and your skin. After 3 days of using ice, you may use heat on your hip. You can use a hot water bottle, a heating pad set on low, or a warm, moist towel. Rest your hip. Stop any activities that cause pain. Switch to activities that do not str ess your hip. Take your medicines exactly as prescribed. Call your doctor if you think you are having a problem with your medicine. If your doctor recommends it, take anti-inflammatory medicines to reduce pain and swelli ng. These include ibuprofen (Advil, Motrin) and naproxen (Aleve). Read and follow all instru ctions on the label. To prevent stiffness, gently move the hip joint as much as you can without pain every da y. As the pain gets better, keep doing jeocm-gj-axgedl exercises. Ask your doctor for exerci ses that will make the muscles around the hip joint stronger. Do these as directed. You can slowly return to the activity that caused the pain, but do it with less effort u ntil you can do it without pain or swelling. Be sure to warm up before and stretch after you do the activity. When should you call for help? Call your doctor now or seek immediate medical care if: You have a fever. You have increased swelling or redness in your hip. You cannot use your hip, or the pain in your hip gets worse. Watch closely for changes in your health, and be sure to contact your doctor if: You have pain for 2 weeks or longer despite home treatment. Where can you learn more? To learn more about "Hip Bursitis: After Your Visit", log into your [employer] account at http :[email or web address]/[employer]. You can enter I156 in the [employer] Library" search box. Not on [employer]? Review the [employer] section of your After Visit Summary for directions on oracio morton to sign up. [id number] [employer]. Care instructions adapted under license by [facility] [employer] [place]. This care instruction is for use with your licensed healthcar e professional. If you have questions about a medical condition or this instruction, always ask your healthcare professional. [employer] disclaims any warranty or liabili ty for your use of this information. Content Version: 10.2.289997; Current as of: November 26, 2013 Hip Bursitis: Exercises Your Care Instructions Here are some examples of typical rehabilitation exercises for your condition. Start each e xercise slowly. Ease off the exercise if you start to have pain. Your doctor or physical therapist will tell you when you can start these exercises and whic h ones will work best for you. How to do the exercises Hip rotator stretch 1. Lie on your back with both knees bent and your feet flat on the floor. 2. Put the ankle of your affected leg on your opposite thigh near your knee. 3. Use your hand to gently push your knee away from your body until you feel a gentle stret ch around your hip. 4. Hold the stretch for 15 to 30 seconds. 5. Repeat 2 to 4 times. 6. Repeat steps 1 through 5, but this time use your hand to gently pull your knee toward yo ur opposite shoulder. Iliotibial band stretch 1. Lean sideways against a wall. If you are not steady on your feet, hold on to a chair or counter. 2. Stand on the leg with the affected hip, with that leg close to the wall. Then cross your other leg in front of it. 3. Let your affected hip drop out to the side of your body and against wall. Then lean away from your affected hip until you feel a stretch. 4. Hold the stretch for 15 to 30 seconds. 5. Repeat 2 to 4 times. Straight-leg raises to the outside 1. Lie on your side, with your affected hip on top. 2. Tighten the front thigh muscles of your top leg to keep your knee straight. 3. Keep your hip and your leg straight in line with the rest of your body, and keep your kn ee pointing forward. Do not drop your hip back. 4. Lift your top leg straight up toward the ceiling, about 12 inches off the floor. Hold fo r about 6 seconds, then slowly lower your leg. 5. Repeat 8 to 12 times. Clamshell 1. Lie on your side, with your affected hip on top and your head propped on a pillow. Keep your feet and knees together and your knees bent. 2. Raise your top knee, but keep your feet together. Do not let your hips roll back. Your l egs should open up like a clamshell. 3. Hold for 6 seconds. 4. Slowly lower your knee back down. Rest for 10 seconds. 5. Repeat 8 to 12 times. Follow-up care [...] you learn more? To learn more about "Hip Bursitis: Exercises", log into your [employer] account at http://www. [place].[facility]/[employer]. You can enter H674 in the Health Library" search box. Not on MyChart? Review the MyChart section of your After Visit Summary for directions on ho w to sign up. [phone] [employer]. Care instructions adapted under license by [facility]. This care instruction is for use with your licensed healthcar e professional. If you have questions about a medical condition or this instruction, always ask your healthcare professional. [employer] disclaims any warranty or liabili ty for your use of this information. Content Version: 10.2.214993; Current as of: November 26, 2013 documented in this encounter Progress Notes Tavia Zuniga FNP - 09/07/2014 2:58 PM PDTFormatting of this note might be differe nt from the original. Progress Note Clinic: Rheumatology Reason for follow-up: Chief Complaint Patient presents with Fibromyalgia Follow-up visit Ms. Santiago was last seen June 01, 2014. At that time she was having a negative response to the Butrans patch and we developed a dwaine n for d/c. She has completed the taper and has now been off x 1 mo. She has been doing fine- she is having more interventional application to her pain generato rs Injections in right shoulder- helped. Also has helped right trapezii. Also injection into left wrist and it has caused radicular pain and cold feeling in the broussard d. Will see a hand specialist this Sunday. Saw PT today and recommended tilt table test. Does have dx of htn and is on ARB. If stands for a period of time- will feel tired and nauseous. Getting around better- has more movement. Going on a cruise early November and gone 2 weeks. Has better attitude and feels better with mood overall. On both hydroxychloroquine and methotrexate Also doing acupuncture since February 2-3 x/ wk. Massage 1x/ mo. ROS: See scanned form. Detail reviewed w/ pt during appt. Past Medical History: Past Medical History Diagnosis Date Fibromyalgia Arthropathy, unspecified, site unspecified Other general symptoms(780.99) IBS (irritable bowel syndrome) HTN (hypertension), benign Endometriosis Melanoma Medications: Current Outpatient Prescriptions Medication Sig Ascorbic Acid (VITAMIN C) 500 mg OR CHEW 1000 mg, 2 chewable per day buprenorphine (BUTRANS) 5 mcg/hour transdermal patch weekly Apply 5 mcg to skin every s even days. busPIRone 5 mg oral tablet Take 5 mg by mouth three times daily. CALCIUM CARBONATE/VITAMIN D2 (CALCIUM + VITAMIN D ORAL) Take 1 tablet by mouth two time s daily. Calcium 600 mg, D3 400 IU cholecalciferol, Vitamin D3, 1,000 unit oral tablet Take 1,000 Units by mouth two times daily. CHONDROITIN SULFATE A ORAL Take 1,250 mg by mouth two times daily. docusate sodium (COLACE) 100 mg oral capsule Take 1 capsule by mouth two times daily. esterified estrogens 0.15 mg oral tablet Take 1 each by mouth once daily. folic acid 1 mg oral tablet Take 1 tablet by mouth once daily. GLUC GARZA/CHONDRO GARZA A/VIT C/MN (GLUCOSAMINE 1500 COMPLEX ORAL) Take 2 tablets by mouth t wo times daily. hydrochlorothiazide 25 mg oral tablet Take 25 mg by mouth once daily. 1/2 tab hydroxychloroquine (PLAQUENIL) 200 mg oral tablet Take 1 tablet by mouth two times nadine y. losartan 25 mg oral tablet Take 25 mg by mouth once daily. Lysine 500 mg OR CAPS 1 tablet daily methotrexate 2.5 mg oral tablet Take 4 tablets by mouth every seven days. mirabegron (MYRBETRIQ) 50 mg oral tablet extended release 24 hr Take 1 tablet by mouth once daily. naproxen sodium (ALEVE) 220 mg oral capsule Take 220 mg by mouth three times daily as n eeded. nystatin 100,000 unit/gram topical cream Apply liberally to the affected areas BID ranitidine (ZANTAC) 150 mg Oral tablet Take 150 mg by mouth as needed. TURMERIC, BULK, MISC 40 drops two times daily. TYLENOL PM OR 1 @ HS VIT A/VIT C/VIT E/ZINC/COPPER (ICAPS AREDS ORAL) Take by mouth. No current facility-administered medications for this visit. Allergies: Morphine; Adhesive tape; Bextra; Cardizem; Celexa; Codeine; Cymbalta; Imdur; Adolfo apro; Nexium; and Oxycodone Social History: Ashly reports that she has never smoked. She does not have any smokeless tobacco history on file. Family History: family history includes Additional Family History in her father (Parkinson' s); Arthritis in her sister; Heart Disease in her mother; and Stroke in her mother. Physical Exam: BP 124/65 | Pulse 77 | Wt 92.08 kg (203 lb) | BMI 33.78 kg/(m^2) Pain Score: 7 Rapid 3 MHAQ: 3.3 (09/07/14 1500) PAIN LEVEL: 8 (09/07/14 1500) GLOBAL ASSESSMENT: 6 (09/07/14 1500) RAPID 3: 5.77 (09/07/14 1500) Gen: Well nourished, well developed, in NAD HEENT: unremarkable Ext: No clubbing, cyanosis, or edema M/S: +Right CMC hypertrophy, soft tissue swelling, pain with ROM Skin: Clear Neuro: normal Labs: Lab Results Component Value [...] up of complex pain syndrome including fibromyalgia, RA and chronic fatigue. Functional Assessment: [facility] 12/23/2013 06/01/2014 09/07/2014 RAPID 3 3.33 7.17 5.77 Recommendations: 1. Ms. Santiago has been of the buprenorphine patch for more than 1 month and is doing well. While she had an initial positive response with chronicity of use she developed a paradoxic al reaction. Prior to the initiation of chronic opiate analgesia we had discussed this poss ible outcome. I reviewed the etiology of pain, opiate receptor modulation and analgesia. 2. Encouraged regarding exercise and conditioning to maintain pain control. Resources prov ided. 3. She will continue care w/ wad blanking press adjuster Dr. Rosas Lucia regarding her arthritis and her primary care provider for her fibromyalgia. 4. Though I didn't schedule her for follow-up at this time, I would be happy to see her at any point in the future if needed. I did encourage her to call should she have any question s or concerns in the near future. [facility] [address] [place] [address] Mailcode: Op09 [facility] [address] Display Progress Note in PhoneJoy Solutionshart: No documented in t his encounter Plan of Treatment Not on filedocumented as of this encounter Visit Diagnoses + + | Diagnosis | + + | Fibromyalgia - Primary Mylagia and myositis, unspecified | + + | Rheumatoid arthritis | + + documented in this encounter
--- OUTSIDE RECORDS SUMMARY | ~2019-05-17 | XMS | Encounter Summary ---
Demographics + + + | Address | [address] | | | [place] [address] | + + + | Home Phone | | + + + | Preferred Language | Unknown | + + + | Marital Status | | + + + | Congregation Affiliation | Unknown | + + + | Race | White | + + + | Ethnic Group | Not or | + + + Author + + + | Author | [facility] | + + + | Organization | [facility] | + + + | Address | Unknown | + + + | Phone | Unavailable | + + + Support + + +---------+ + | Name | Relationship | Address | Phone | + + +---------+ + | Alon Santiago | ECON | Unknown | | + + +---------+ + Care Team Providers + +------+ + | Care Landscape Architect And Planner Name | Role | Phone | + +------+ + | Jhonyoseph Nathan | PCP | | + +------+ + Encounter Details +--------+ + + + + | Date | Type | Department | Care Team | Description | +--------+ + + + + | 11/15/ | Telephone | Rheumatology at | Tavia Zuniga | | | 2016 | | Physicians [facility] [address] | | | | | [address] | [address] | | | | | [address] Mailcode: | [place], [place] | | | | | [address] Physician's | [address] | | | | | [place], | [phone] | | | | | [place] [address] | | | | | | [phone] | | | +--------+ + + + [...]
--- OUTSIDE RECORDS SUMMARY | ~2019-05-17 | XMS | Encounter Summary ---
Demographics + + + | Address | [address] | | | [place] [address] | + + + | Home Phone | | + + + | Preferred Language | Unknown | + + + | Marital Status | | + + + | Pentecostal Affiliation | 1077 | + + + | Race | Unknown | + + + | Ethnic Group | Unknown | + + + Author + + + | Author | [facility] | | | and Azana | + + + | Organization | [facility] | | [...] [place], [place] | | | | | [address] | | + + + + + | Helena Doherty | ECON | [place], | | | | | [place] [address] | | + + + + + Care Team Providers + +------+ + | Care Vp Outcomes Name | Role | Phone | + +------+ + | Nathan Luevano DO | PCP | | + +------+ + Reason for Visit + + + | Reason | Comments | + + + | Therapy Daily | | | Treatment | | + + + Evaluate & Treat (Routine) +--------+ + + + + + | Status | Reason | Specialty | Diagnoses / | Referred By | Referred To | | | | | Procedures | Contact | Contact | +--------+ + + + + + | Closed | Specialty | Physical | Diagnoses | | [place], | | | Services | Therapy / | Lumbar | Fay, | Aiyana S, PT | | | Required | Rehabilitatio | radiculopath | Anna, | [address] | | | | n | y | PA-C [address] [place] | | | | | Degenerative | [address] | [place], [place] | | | | | disc | [place] | [address] Phone: | | | | | disease, | [address] | [phone] | | | | | lumbar | Phone: | Fax: | | | | | Lumbar | [phone] | [phone] | | | | | foraminal | Fax: | | | | | | stenosis | [phone] | | | | | | Fibromyalgia | | | | | | | M54.16 | | | | | | | (ICD-10-CM) | | | | | | | - 724.4 | | | | | | | (ICD-9-CM) - | | | | | | | Lumbar | | | | | | | radiculopath | | | | | | | y | | | | | | | Procedures | | | | | | | pt eval | | | | | | | (Aiyana) | | | +--------+ + + + + + Encounter Details +--------+---------+ + + + | Date | Type | Department | Care Team | Description | +--------+---------+ + + + | 01/04/ | Office | [facility] | Fay, | Sacroiliitis (HCC) | | 2017 | Visit | MED CTR THERAPY PT | FABIAN Castillo [address] | (Primary Dx); | | | | OP [address] | [facility], | Fibromyalgia | | | | [place] | [place] [address] | | | | | [address] | [phone] | | | | | [phone] | | | | | | | Aiyana Fish S, PT | | | | | | [address] | | | | | | [place] | | | | | | [phone] | | | | | | | [...] encounter Progress Notes Aiyana Fish, PT - 01/04/2017 12:00 PM PDTFormatting of this note might be different fro m the original. [facility] CTR THERAPY PT OP [address] [place] [address] Physical Therapy Daily Treatment Note Date: 01/04/2017 Patient Information Patient Name: Ashly Santiago Date of : 1940 Age: 77 y.o. Encounter Diagnoses Code Name Primary? M46.1 Sacroiliitis (HCC) Yes M79.7 Fibromyalgia Date of Onset: 06/08/2016 Referring Provider: Anna Aponte PA-C Rehab Precautions Flowsheet Row Office Visit from 10/19/2016 in [facility] CTR THERAPY PT OP Rehab Precautions Precautions None Rehab Learning Style Flowsheet Row Office Visit from 10/19/2016 in [facility] CTR THERAPY PT OP Learning Style Patient's Optimum Learning Style listening, reading, observation, performance of task Start Time: 1205 Stop time: 1303 Duration: 58 minutes Timed Treatment Codes: 58 minutes # of PT Visits to Date: 7 Subjective: Pt reports that she has noticed that she is much more flexible since starting PT. She is ab le to cross her legs now. She is going to have surgery 02/13/2107. She has noticed a little more pain in the left low back and left leg. She remains active and continue with the nadine y yoga stretches. Pain Assessment: Pain Rating Pre Assessment: 4 Location: low back and left leg- intermittent Objective: Manual Treatment: Myofascial Release/CranioSacral Therapy to multiple areas: Dural tube mo bilization, mid thoracic spine and upper thoracis spine including the costovertebral joints Assessment: Good response to treatment. Fascial release resulted in improved mobility in the mid thora cic spine and costovertebral joints following the session. Plan: Continue with manual therapy and development of home program Electronically signed by: Aiyana Fish, PT, 01/04/2017 13:05 Patient Name: Ashly Real Santiago/: 1940/ documented in this en counter [...] | | | | | [place] [address] | | | | | | [phone] | | | | | | | | | | | | Power Shovel EngineerNaomi | | +--------+ + + + + + + +--------+ + + | Name | Type | Priori | Associated Diagnoses | Order Schedule | | | | ty | | | + + +--------+ + + | * [facility] | Outpatient | Routin | Lumbar | Ordered: 08/30/2016 | | Therapy - AMB | Referral | e | radiculopathy | | | Referral | | | DEGENERATIVE DISC | | | | | | DISEASE, LUMBAR | | | | | | SPINE 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 | | | | | | Fibromyalgia | | + + +--------+ + + documented as of this encounter Visit Diagnoses + + | Diagnosis | + + | Sacroiliitis (HCC) - Primary Sacroiliitis, not elsewhere classified | + + | Fibromyalgia Mylagia and myositis, unspecified | + + documented in this encounter"
--- OUTSIDE RECORDS SUMMARY | ~2019-05-17 | XMS | Encounter Summary ---
Demographics + + + | Address | [address] | | | [place] [address] | + + + | Home Phone | | + + + | Preferred Language | Unknown | + + + | Marital Status | | + + + | Alevism Affiliation | 1077 | + + + | Race | Unknown | + + + | Ethnic Group | Unknown | + + + Author + + + | Author | [facility] | | | and Azana | + + + | Organization | [facility] | | | and Azana [...] [place], [place] | | | | | [address] | | + + + + + | Helena Doherty | ECON | [place], | | | | | [place] [address] | | + + + + + Care Team Providers + +------+ + | Care Refinery Operator Gas Plant Name | Role | Phone | + +------+ + | Nathan Luevano DO | PCP | | + +------+ + Reason for Visit + + + | Reason | Comments | + + + | Pre-op Exam | | + + + Encounter Details +--------+---------+ + + + | Date | Type | Department | Care Team | Description | +--------+---------+ + + + | 02/07/ | Office | [facility] | Agusto Pereira MD | Lumbar radiculopathy | | 2017 | Visit | NEUROSURGERY [address] | (Primary Dx); Facet | | | | [address] | [place] [address] | arthritis of lumbar | | | | [place], [place] | [phone] | region ([facility]); | | | | [address] | | Chronic low back | | | | [phone] | | pain with sciatica, | | | | | | sciatica laterality | | | | | | unspecified, | | | | | | unspecified back | | | | | | pain laterality; | | | | | | DEGENERATIVE DISC | | | | | | DISEASE, LUMBAR | | | | | | SPINE; Sacroiliitis | | | | | | ([facility]); 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; | | | | | | Scoliosis of lumbar | | | | | | spine, unspecified | | | | | | scoliosis type; Back | | | | | | pain, unspecified | | | | | | back location, | | | | | | unspecified back | | | | | | pain laterality, | | | | | | unspecified | | | | | | chronicity | +--------+---------+ + + + Social History [...] + + + | Blood Pressure | 139/74 | 02/07/2017 10:46 AM | | | | | PDT | | + + + + + | Pulse | 69 | 02/07/2017 10:46 AM | | | | | PDT [...] + + + + | Weight | 86.6 kg (191 lb) | 02/07/2017 10:46 AM | | | | | PDT | | + + + + + | Height | 165.1 cm (5' 5") | 02/07/2017 10:46 AM | | | | | PDT | | + + + + + | Body Mass Index | 31.78 | 02/07/2017 10:46 AM | | | | | PDT | | + + + + + documented in this encounter Progress Notes Rita Kearney RN - 02/07/2017 11:00 AM PDTPatient in office for pre op appointment. Lisa ent advised at this time to stop: diclofenac, hydroxychloroquine, methotrexate, multi vits ( 7 days prior); losartan-HCTZ (24 hours prior). Patient verbalized understanding. All questio ns answered at this time. I Rita Kearney RN witnessed the patient leaving the office with a LSO which was provided by a group sales representative of [facility]. 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
--- OUTSIDE RECORDS SUMMARY | ~2019-05-17 | XMS | Encounter Summary ---
Demographics + + + | Address | [address] | | | [place] [address] | + + + | Home Phone | | + + + | Preferred Language | Unknown | + + + | Marital Status | | + + + | Islam Affiliation | 1077 | + + + | Race | Unknown | + + + | Ethnic Group | Unknown | + + + Author + + + | Author | [facility] | | | and Azana | + + + | Organization | [facility] | [...] [place], [place] | | | | | [address] | | + + + + + | Helena Doherty | ECON | [place], | | | | | [place] [address] | | + + + + + Care Team Providers + +------+ + | Care Brim Pouncer Machine Operator Name | Role | Phone [...] | +--------+ + + + + | 01/04/ | Telephone | [facility] | Agusto Pereira MD | Letter | | 2017 | | NEUROSURGERY [address] | | | | | [address] | [place] [address] | | | | | [place] | [phone] | | | | | [address] | | | | | | [phone] | | | +--------+ + + + [...] DAIA[place]A | | | | | | [place] [address] | | | | | | [phone] | | | | | | | | | | | | Freight Car Inspector, [facility] | | +--------+ + + + + documented as of this encounter Visit Diagnoses Not on filedocumented in this encounter"
--- OUTSIDE RECORDS SUMMARY | ~2019-05-17 | XMS | Encounter Summary ---
Demographics + + + | Address | [address] | | | [place] [address] | + + + | Home Phone | | + + + | Preferred Language | Unknown | + + + | Marital Status | | + + + | Muslim Affiliation | 1077 | + + + | Race | Unknown | + + + | Ethnic Group | Unknown | + + + Author + + + | Author | [facility] | | | and Azana | + + + | Organization | [facility] | | | and Azana [...] [place], [place] | | | | | [address] | | + + + + + | Helena Doherty | ECON | [place], | | | | | [place] [address] | | + + + + + Care Team Providers + +------+ + | Care Electronics Assembler And Tester Name | Role | Phone | + [...] | | | | | | | [place] | | | | | | | COLONOSCOPY | | | | | | | FLX DX | | | | | | | W/COLLJ SPEC | | | | | | | WHEN PFRMD | | | | | | | [place] | | | | | | | COLONOSCOPY | | | | | | | W/BIOPSY | | | | | | | SINGLE/MULTI | | | | | | | PLE GA | | | | | | | COLSC FLX | | | | | | | W/RMVL OF | | | | | | | TUMOR POLYP | | | | | | | LESION SNARE | | | | | | | TQ GA | | | | | | | [...] + + + + | 05/23/ | Anesthesia | [facility] | Phu Manning MD | | | 2017 | Event | MED CTR MP INTRA OP | [address] | | | | | [address] | [place] | | | | | [place], [place] | [address] | | | | | [address] | [phone] | | | | | [phone] | | | +--------+ + + + + Anesthesia Record + + + + + | Procedure Name | Responsible | Anesthesia Start | Anesthesia Stop Time | | | Anesthesiologist | Time | | + + + + + | COLONOSCOPY (N/A | Phu Manning MD | 05/23/17 1349 | 05/23/17 1432 | | Rectum) | | | | + + + + + +----+---+ + + | Da | T | Event | Comment | | te | i | | | | | m | | | | | e | | | +----+---+ + + | 11 | 1 | An Checkout | Pre-use anesthesia machine/equipment checkout. | | /2 | 3 | | | | 9/ | 4 | | | | 20 | 8 | | | | 17 | | | | +----+---+ + + | | 1 | | | | | 3 | | | | | 4 | | | | | 9 | | | +----+---+ + + | | 1 | An Start | Reassessment prior to anesthesia induction/procedure. | | | 3 | | | | | 4 | | | | | 9 | | | +----+---+ + + | | 1 | An Start | | | | 3 | Data | | | | 5 | | | | | 1 | | | +----+---+ + + | | 1 | Pre-Procedu | | | | 3 | ral Timeout | | | | 5 | Completed | | | | 1 | | | +----+---+ + + | | 1 | An | | | | 3 | Induction | | | | 5 | | | | | 4 | | | +----+---+ + + | | 1 | Breathing | | | | 3 | Spontaneous | | | | 5 | ly | | | | 5 | | | +----+---+ + + | | 1 | First | | | | 3 | Inc/Proc St | | | | 5 | | | | | 6 | | | +----+---+ + + | | 1 | an eddie now | BP cuff moved to forearm | | | 4 | | | | | 0 | | | | | 5 | | | +----+---+ + + | | 1 | an stop | | | | 4 | data | | | | 2 | | | | | 8 | | | +----+---+ + + | | 1 | An Stop | Patient handed off to recovery nurse. | | | 3 | | | | | 2 | | | +----+---+ + + +------+ | Meds | +------+ + + + | Name | Total | + + + | propofol (DIPRIVAN) injection | 90 mg | | (bolus) (20 mL) | | + + + | propofol (DIPRIVAN) injection | 329.8 mg | | (bolus) (20 mL) | | + + + | lidocaine 2% | 50 mg | + + + | lactated ringers (LR) infusion | 600 mL | + + + + + | No agents on file. | + + + + | No blood administrations on file. | + + +--------+ + + + | Type | Details | Placement | Removal | +--------+ + + + | Periph | 05/23/17; 1335; Right; Mid; | 05/23/17 1335 by | 05/23/17 1501 by Adonis | | eral | Forearm; [id number] catheter | Bisi Chappell RN | Butch Lewis RN | | IV | system; 20 gauge, 1 1/4 in | | | | | length; distraction, topical | | | | | anesthetic spray applied, | | | | | tolerated well, appears | | | | | comfortable; 05/23/17; 1501 | | | +--------+ + + + | [READ | 05/23/17; 1349; 05/23/17; 1501 | 05/23/17 1349 by | 05/23/17 1501 by Adonis | | ONLY] | | Phu Manning MD | Butch Lewis RN | | | | | | | Periph | | | | | eral | | | | | IV - | | | | | Single | | | | | Lumen | | | | | | | | | +--------+ + + + documented in this encounter Social History + +-------+ +--------+------+ | Tobacco [...] | | | | | | [place] [address] | | | | | | [phone] | | | | | | | | | | | | Real Estate Investment Analyst, [facility] | | +--------+ + + + + documented as of this encounter Visit Diagnoses Not on filedocumented in this encounter Administered Medications + +--------+ +-------+------+------+ | Medication Order | MAR | Action | Dose | Rate | Site | | | Action | Date | | | | + +--------+ +-------+------+------+ | lidocaine (PF) 2% injection | Given | 05/23/20 | 50 mg | | | | Intravenous, PRN, Starting Wed | | 17 1:53 | | | | | 05/23/17 at 1353, Anesthesia | | PM PST | | | | | Intra-op | | | | | | + +--------+ +-------+------+------+ +---+---+ | | | +---+---+ + +-------+ +-------+---+---+ | propofol (DIPRIVAN) injection | Given | 05/23/20 | 10 mg | | | | Intravenous, PRN, Starting Wed | | 17 2:00 | | | | | 05/23/17 at 1353, Anesthesia | | PM PST | | | | | Intra-op | | | | | | + +-------+ +-------+---+---+ +-------+ +-------+---+---+ | Given | 05/23/20 | 70 mg | | | | | 17 1:54 | | | | | | PM PST | | | | +-------+ +-------+---+---+ | Given | 05/23/20 | 10 mg | | | | | 17 1:53 | | | | | | PM PST | | | | +-------+ +-------+---+---+ +---+---+ | | | +---+---+ + + + + +-------+---+ | propofol (DIPRIVAN) injection | Rate/Dos | 05/23/20 | 120 | 61.2 | | | CONTINUOUS PRN, Starting Wed | e Change | 17 2:20 | mcg/kg/m | mL/hr | | | 05/23/17 at 1355, Anesthesia | | PM PST | in | | | | Intra-op | | | | | | + + + + +-------+---+ + + + +-------+---+ | Rate/Dose Change | 05/23/20 | 140 | 71.4 | | | | 17 2:02 | mcg/kg/m | mL/hr | | | | PM PST | in | | | + + + +-------+---+ | New Bag | 05/23/20 | 160 | 81.6 | | | | 17 1:55 | mcg/kg/m | mL/hr | | | | PM PST | in | | | + + + +-------+---+ +---+---+ | | | +---+---+ documented in this encounter"
--- OUTSIDE RECORDS SUMMARY | ~2019-05-17 | XMS | Encounter Summary ---
Demographics + + + | Address | [address] | | | [place] [address] | + + + | Home Phone | | + + + | Preferred Language | Unknown | + + + | Marital Status | | + + + | Cheondoism Affiliation | Unknown | + + + | Race | White | + + + | Ethnic Group | Not or | + + + Author + + + | Author | [facility] | + + + | Organization | [facility] | + + + | Address | Unknown | + + + | Phone | Unavailable | + + + Support + + +---------+ + | Name | Relationship | Address | Phone | + + +---------+ + | Alon Santiago | ECON | Unknown | | + + +---------+ + Care Team Providers + +------+ + | Care Steam Distribution Supervisor Name | Role | Phone | + +------+ + | Thee Boss MD | PCP | | + +------+ + Reason for Visit + + + | Reason | Comments | + + + | Medication | Butrans | + + + Encounter Details +--------+ + + + + | Date | Type | Department | Care Team | Description | +--------+ + + + + | 06/16/ | Telephone | Rheumatology at | Tavia Zuniga | Medication (Butrans) | | 2013 | | Physicians [facility] Fung [address] | | | | | [address] | [address] | | | | | Amara Chatman Mailcode: | [place], [place] | | | | | [address] Physician's | [address] | | | | | Francy, [facility] Floor | [phone] | | | | | [place], [place] | | | | | | [address] | | | | | | [phone] | | | +--------+ + + + [...]
--- OUTSIDE RECORDS SUMMARY | ~2019-05-17 | XMS | Encounter Summary ---
Demographics + + + | Address | [address] | | | [place] [address] | + + + | Home Phone | | + + + | Preferred Language | Unknown | + + + | Marital Status | | + + + | Sikh Affiliation | 1077 | + + + | Race | Unknown | + + + | Ethnic Group | Unknown | + + + Author + + + | Author | [facility] | | | and Azana | + + + | Organization | [facility] | | | and Azana | + + + | Address | Unknown | + + + | Phone | Unavailable | + + + Support + + + + + | Name | Relationship | Address | Phone | + + + + + | Lima Zavaleta | KATERIN | [address] | | | | | [place], [place] | | | | | [address] | | + + + + + | Helena Doherty | ECON | [place], | | | | | [place] [address] | | + + + + + Care Team Providers + +------+ + | Care Butcher [employer] Name | Role | Phone | + +------+ + | Nathan Luevano DO | PCP | | + +------+ + Reason for Visit + + + | Reason | Comments | + + + | Initial Assessment | | + + + Evaluate & Treat (Routine) +--------+ + + + + + | Status | Reason | Specialty | Diagnoses / | Referred By | Referred To | | | | | Procedures | Contact | Contact | +--------+ + + + + + | Closed | Specialty | Physical | Diagnoses | | Kimberlymme, | | | Services | Therapy / | Lumbar | Fay, | Aiyana S, PT | | | Required | Rehabilitatio | radiculopath | Anna, | [address] | | | | n | y | PA-C [address] [place] | | | | | Degenerative | [address] | [facility] [place] | | | | | disc | [place], [place] | [address] Phone: | | | | | disease, | [address] | [phone] | | | | | lumbar | Phone: | Fax: | | | | | Lumbar | [phone] | [phone] | | | | | foraminal | Fax: | | | | | | stenosis | [phone] | | | | | | Fibromyalgia [...] Description | +--------+---------+ + + + | 10/19/ | Office | [facility] | Fay, | Acute left-sided low | | 2017 | Visit | [facility] | FABIAN Castillo [address] | back pain with | | | | OP [address] | [facility], | sciatica, sciatica | | | | [place] | [place] [address] | laterality | | | | [address] | [phone] | unspecified (Primary | | | | [phone] | | Dx); Fibromyalgia; | | | | | Aiyana Fish S, PT | Sacroiliitis (HCC) | | | | | [address] | | | | | | [place] | | | | | | [address] | | | | | | | [...] encounter Progress Notes Aiyana Fish, PT - 10/19/2016 3:04 PM PDTFormatting of this note might be different fro m the original. Physical Therapy Plan of Care Date: 10/19/2016 Patient Name: Ashly Zavaleta Date of : 1940 Encounter Diagnoses Code Name Primary? M54.40 Acute left-sided low back pain with sciatica, sciatica laterality unspecified Alejo solorzano M79.7 Fibromyalgia M46.1 Sacroiliitis (HCC) Date of Onset: 06/08/2016 Start of Care Date: 10/19/2016 Requested # of Visits: 12 visits 1x/week for 12 weeks Certification From: 10/19/2016 Certification To: 01/18/2017 Clinical Impression: Patient presents to physical therapy with diagnosis of left lumbar ra diculapathy. Objective exam reveals impairments with ROM in her hips especially right hip fl exion and abnormal muscle and fascial tension in her lower back and hips. These impairments are causing functional limitations with sitting, standing, walking, sleeping and socializing with an NINOSKA of 48%. Signs and symptoms are consistent with back pain with nerve root irrita tion on the left. Significant findings on her MRI were on the right side which is not sympto matic. Complexities contributing to frequency and duration of therapy: none. There does patria ear to be some peripheral nerve sensitization that has occurred. Goals: Patient Reported Outcome Goals Patient Reported Outcome Goals: Oswestry, PSFS Patient Specific Functional Scale Goal 1: Pt will be able to walk for up to 20 min without increased pain using graded exposure technique. Patient Specific Functional Scale Goal 1 Status: 0 Patient Specific Functional Scale Goal 1 Status Comment: Pt has pain immediately upon stand ing Patient Specific Functional Scale Goal 2: Pt will be able to sleep for up to 6 hours withou t interruption due to pain Patient Specific Functional Scale Goal 2 Status: 3 Patient Specific Functional Scale Goal 2 Status Comment: Pt is reporting less than 4 hours of sleep due to pain Patient Specific Functional Scale Goal 3: Pt will be participating in home program to inclu de yoga stretches, breathing and relaxation techniques and a walking program at least 3 time s per week. Patient Specific Functional Scale Goal 3 Status: 0 Patient Specific Functional Scale Goal 3 Status Comment: Pt has been unable to be active du e to pain. Oswestry Disability Index Goal: 20% Oswestry Disability Index Goal Status: 48% OP PT Goals Goal 1: Pt will reduce her NINOSKA score by at least 20 points in the next 60 days. Goal 1 Status: Pt has NINOSKA score today of 48% PT G-Codes Functional Assessment Tool Used: NINOSKA Score: 48% Functional Limitation: Mobility: Walking and moving around Mobility: Walking and Moving Around Current Status (G8978): At least 40 percent but less th an 60 percent impaired, limited or restricted Mobility: Walking and Moving Around Goal Status (G8979): At least 1 percent but less than 2 0 percent impaired, limited or restricted Treatment Plan/Interventions PT [id number] - Therapeutic [id number] - Therapeutic [id number] - Manual Thera [id number] - Self Care/Home Management Electronically signed by: Aiyana Fish, PT, 10/19/2016 15:05 Patient Name: Ashly Zavaleta/: 1940/ Aiyana Roberts PT - 10/19/2016 1:13 PM PDT [facility] PT OP [address] [place] [address] Physical Therapy Initial Assessment Date: 10/19/2016 Patient Information Patient Name: Ashly Zavaleta Date of : 1940 Age: 76 y.o. History Problem Sacroiliitis (Hcc) BACK PAIN, LUMBAR Fibromyalgia Mechanism of injury: No specific cause History of symptoms: Pt reports that she has a long history of lower back pain over the yea rs. She has had PT before for her neck and back and injections multiple times from Dr. Ramon mcguire. She had a flare up of her symptoms in May 2016. She has a consult with Dr. Pereira to see if surgery would be an option Previous level of function and limitations: Walking normally inside and without limitations due to pain. 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 M54.40 Acute left-sided low back pain with sciatica, sciatica laterality unspecified Ye s M79.7 Fibromyalgia M46.1 Sacroiliitis (HCC) Date of Onset: 06/08/2016 Referring Provider: Anna Aponte PA-C No history on file. Past Medical History Diagnosis Date Chronic pain IMPAIRED VISION Leg cramps Cervical radiculopathy GERD (gastroesophageal reflux disease) Cough Lipoma Diverticulosis Abdominal pain Precordial pain Hypertension Depression Incontinence of urine Displacement of lumbar intervertebral disc Hypercholesterolemia Sacroiliitis (HCC) 09/04/2012 Osteoarthrosis Rheumatoid arthritis (HCC) Intervertebral disc disorder with radiculopathy of lumbar region Other idiopathic scoliosis, lumbar region Fibromyalgia Lumbar foraminal stenosis 08/30/2016 Past Surgical History Procedure Laterality Date Cholecystectomy, laparoscopic 07/11/2011 Dr. Marquez Rectocele repair 2006 Dr. Reid Bladder suspension 2005 with Rectocele repair; Dr. Reid and Dr. Watkins Neuroma surgery Left 1998 Heel spur surgery Right 1997 Dr. Berrios Retinal detachment surgery 1997 Dr. Andrade Cataract removal Bilateral 1996 [facility] Hysterectomy, total abdominal 1972 [place] Appendectomy 1960 [place] Tonsillectomy [address] [place], [place] Colonoscopy 2003 [facility] Bunionectomy 04/10/2007 [facility]; Dr. Db Berrios Perineal skin bridge 02/2009 Electrocardiogram 05/19/2009 Dr. Boss Egd and colonoscopy 07/06/2009 [facility] Dr. Jc Electrocardiogram 08/12/2009 Dr. Radha Stafford; [facility] Endoscopy 07/07/2011 [facility]; Dr. Marquez Finger trigger release Right 05/28/2014 Middle finger; Dr. Donta Richard Rotator cuff repair Right 04/20/2015 Dr. Jesus Nasal septum surgery 06/06/2016 Dr. Lindsey; [facility] Family History Problem Relation Age of Onset Parkinsonism Father Heart defect Mother enlarged Stroke Mother 70 Dementia Mother Alcohol abuse Sister Other (see comment) Sister leptospirosis Other (see comment) Sister Meningitis as a child Arthritis Sister Gout Sister Other (see comment) Sister Lung problems No Known Problems Child No Known Problems Paternal Grandfather No Known Problems Paternal Grandmother No Known Problems Maternal Grandfather Heart defect Maternal Grandmother enlarged Heart disease Paternal Aunt Lung cancer Maternal Uncle Heart disease Maternal Aunt Developmental History Allergies Allergen Reactions Citalopram Nausea Only Citalopram Hydrobromide Nausea Only Codeine Nausea And Vomiting and Other (See Comments) Dizziness Codeine Sulfate Nausea And Vomiting and Other (See Comments) Dizziness Diclofenac Diarrhea, Nausea Only and Other (See Comments) Headache, Acid reflux, Stomach Cramping, Bloating Diltiazem Swelling Ankle Diltiazem Hcl Swelling Ankle Duloxetine Other (See Comments) Hot flashes Escitalopram Nausea Only Escitalopram Oxalate Nausea Only Esomeprazole Magnesium Nausea Only Hydromorphone Nausea Only Isosorbide Mononitrate Nausea Only and Other (See Comments) Headache, Dizziness Isosorbide Nitrate Nausea Only and Other (See Comments) Headache, Dizziness Misoprostol Diarrhea, Nausea Only and Other (See Comments) Headache, Acid reflux, Stomach Cramping, Bloating Morphine Nausea Only Morphine Sulfate Nausea Only Oxycodone Nausea Only Oxycodone Hcl Nausea Only Tramadol Nausea Only and Other (See Comments) Insomnia, "alternating sweating and cold spells, a week of withdrawal symptoms" Valdecoxib Nausea Only and Other (See Comments) Dizziness Adhesive & Tape Itching and Rash Pregabalin Swelling Ankles Prior Treatment: None within the last sixty days Rehab Precautions Office Visit from 10/19/2016 in [facility] PT OP Rehab Precautions Precautions None Learning Style Patient's Optimum Learning Style: listening, reading, observation, performance of task Abuse Assessment Do you feel safe in your current relationship or home?: Yes Action taken by clinician: No concerns Fall Risk: Fall Risk 2 or more falls in the past year?: No Pain Assessment: Pain Rating Pre Assessment: 7 Location: lower back and post hips bilat. radiating pain into the left leg L5 nerve root di stribution. Pain is not constant. Pain is more "uncomfortable" and is mostly numbness now, not so much pain. EVALUATION: SUBJECTIVE: History of Presenting Problem: Ashly Zavaleta is a 76 y.o. female who pres ents to therapy with lumbar radiculopathy on the left side Functional Limitations: walking,standing, sleeping, lifting and socializing Precaution/special problems: none Patient s Goals: to be able to walk and stand normally. Daughter is visiting from [facility] and she would like to be able to go to [place] to shop and walk with her MRI or X-ray: At another hospital. OBJECTIVE: Vitals: BP: 156/72 Pulse: 72 bpm O2: 96 Observation/Posture: Patient is presenting with the following postural faults: good posture for age. No signifi cant postural issues. Palpation: Fascial and muscular tightness in the lower back and hips. Dural tube tightnes s with nerve root adhesions in the lower lumbar segments on the left side. Gait: normal Functional Movements: Toe Walking: ok Heel Walking: ok Balance: Right leg 1 sec Left leg 5 sec I Lumbar ROM Initial Assessment Progress Note / Discharge Flexion: 90 Extension: 30 Side Bend Left: 40 Side Bend Right: 40 Rotation Left: 45 Rotation Right: 40 Initial Assessment Progress Note / Discharge Progress Note / Discharge Shoulder ROM: Left and Right= NT Left= Right= Initial Assessment Progress Note / Discharge Progress Note / Discharge Left and Right Left Right LE Strength Testing: All muscle groups tested 5/5 except left hip ER4/5 Postural Muscles: normal No bowel or bladder incontinence. No saddle anesthesia Outcome Measure: Initial Assessment Progress Note / Discharge NDI: 48/100% (A score of 0% = No Functional Disability of Cervical Spine) Standardized Tests: Oswestry Disability Index (NINOSKA) Pain Intensity: 2 - The pain is moderate at the moment Personal Care: 1 - I can take care of myself normally but it increases my pain Liftin - Pain prevents me from lifting heavy weights, but I can manage light to medium weights if they are conveniently positioned Walkin - Pain prevents me from walking more than 1/4 mile Sittin - I can only sit in my favorite chair as long as I like Standin - Pain prevents me from standing more than 1/2 hour Sleepin - Because of pain I get less than 4 hours sleep Sex life (if applicable): 5 - Pain prevents any sex life at all Social Life: 3 - Pain prevents me from going out very often Travelin - I can travel anywhere but it increases my pain Oswestry Disability Index Score (Calculated): 24 Oswestry Disability Index Score: 48 Oswestry Disability Percentage Score: 48 Oswestry Disability Index Goal: 20% Oswestry Disability Index Goal Status: 48% Assessment Patient presents to physical therapy with diagnosis of left lumbar radiculapathy. Objective exam reveals impairments with ROM in her hips especially right hip flexion and abnormal mus bong and fascial tension in her lower back and hips. These impairments are causing functional limitations with sitting, standing, walking, sleeping and socializing with an NINOSKA of 48%. S igns and symptoms are consistent with back pain with nerve root irritation on the left. Sign ificant findings on her MRI were on the right side which is not symptomatic. Complexities c ontributing to frequency and duration of therapy: none. There does appear to be some periphe ral nerve sensitization that has occurred. Rehabilitation potential: Patient demonstrates good potential to achieve established goal s to address the documented impairments by participating in skilled physical therapy service s. Goals: Patient Reported Outcome Goals Patient Reported Outcome Goals: Oswestry, PSFS Patient Specific Functional Scale Goal 1: Pt will be able to walk for up to 20 min without increased pain using graded exposure technique. Patient Specific Functional Scale Goal 1 Status: 0 Patient Specific Functional Scale Goal 1 Status Comment: Pt has pain immediately upon stand ing Patient Specific Functional Scale Goal 2: Pt will be able to sleep for up to 6 hours withou t interruption due to pain Patient Specific Functional Scale Goal 2 Status: 3 Patient Specific Functional Scale Goal 2 Status Comment: Pt is reporting less than 4 hours of sleep due to pain Patient Specific Functional Scale Goal 3: Pt will be participating in home program to inclu de yoga stretches, breathing and relaxation techniques and a walking program at least 3 time s per week. Patient Specific Functional Scale Goal 3 Status: 0 Patient Specific Functional Scale Goal 3 Status Comment: Pt has been unable to be active du e to pain. Oswestry Disability Index Goal: 20% Oswestry Disability Index Goal Status: 48% OP PT Goals Goal 1: Pt will reduce her NINOSKA score by at least 20 points in the next 60 days. Goal 1 Status: Pt has NINOSKA score today of 48% PT G-Codes Functional Assessment Tool Used: NINOSKA Score: 48% Functional Limitation: Mobility: Walking and moving around Mobility: Walking and Moving Around Current Status (G8978): At least 40 percent but less th an 60 percent impaired, limited or restricted Mobility: Walking and Moving Around Goal Status (G8979): At least 1 percent but less than 2 0 percent impaired, limited or restricted Plan Date of Onset: 06/08/2016 Start of Care Date: 10/19/2016 Requested # of Visits: 12 visits 1x/week for 12 weeks Certification From: 10/19/2016 Certification To: 01/18/2017 Treatment Plan/Interventions PT [id number] - Therapeutic [id number] - Therapeutic [id number] - Manual Thera [id number] - Self Care/Home Management Patient and/or family has indicated understanding of treatment needs and actively participa jesus in the creation of this plan for care. Today's Treatment Start Time: 1305 Stop time: 1430 Duration: 85 minutes Timed Treatment Codes: 40 minutes # of PT Visits: 1 Objective: Education of rehab timeline, focus and expectations. Education of pain modulation with use of ice/MHP, positioning, pacing and movement strategies for self care. Exercise/Activity 10/19/2016 Proper sitting position with back support and pillows X MFR to multiple areas X Persistent pain education : graded exposure, hurt doesn't equal harm and correlation betwee n diagnostic findings and pain X Next Visit: Continue with manual therapy and development of home program Electronically signed by: Aiyana Fish PT, 10/19/2016 15:03 Patient Name: Ashly Real Zavaleta/: 1940/ documented in this en counter Plan [...] | | | | | | [place] [address] | | | | | | [phone] | | | | | | | | | | | | [employer] M[employer] AnalysisNaomi | | +--------+ + + + + [...] + | Diagnosis | + + | Acute left-sided low back pain with sciatica, sciatica laterality unspecified - | | Primary | + + | Fibromyalgia Mylagia and myositis, unspecified | + + | Sacroiliitis (HCC) Sacroiliitis, not elsewhere classified | + + documented in this encounter
--- OUTSIDE RECORDS SUMMARY | ~2019-05-17 | XMS | Encounter Summary ---
Demographics + + + | Address | [address] | | | [place] [address] | + + + | Home Phone | | + + + | Preferred Language | Unknown | + + + | Marital Status | | + + + | Buddhist Affiliation | Unknown | + + + | Race | White | + + + | Ethnic Group | Not or | + + + Author + + + | Author | [facility] | + + + | Organization | [facility] | + + + | Address | Unknown | + + + | Phone | Unavailable | + + + Support + + +---------+ + | Name | Relationship | Address | Phone | + + +---------+ + | Alon Santiago | ECON | Unknown | | + + +---------+ + Care Team Providers + +------+ + | Care Biology Professor Name | Role | Phone | [...] | | | Amara Chatman Mailcode: | [place], [place] | | | | | [address] | [address] | | | | | [place], | [phone] | | | | | [place] [address] | | | | | | [phone] | | | +--------+ + + + [...]
--- OUTSIDE RECORDS SUMMARY | ~2019-05-17 | XMS | Encounter Summary ---
Demographics + + + | Address | [address] | | | [place] [address] | + + + | Home Phone | | + + + | Preferred Language | Unknown | + + + | Marital Status | | + + + | Buddhism Affiliation | 1077 | + + + | Race | Unknown | + + + | Ethnic Group | Unknown | + + + Author + + + | Author | [facility] | | | and Azana | + + + | Organization | [facility] | | | and Azana [...] [place], [place] | | | | | [address] | | + + + + + | Helena Doherty | ECON | [place], | | | | | [place] [address] | | + + + + + Care Team Providers + +------+ + | Care Classroom Monitor Name | Role | Phone | + +------+ + | Nathan Luevano DO | PCP | | + +------+ + Reason for Visit + + + | Reason | Comments | + + + | Medication Refill | | + + + Encounter Details +--------+ + + + + | Date | Type | Department | Care Team | Description | +--------+ + + + + | 06/22/ | Telephone | [facility] | Joshua Hilliard MD | Medication Refill | | 2016 | | GASTROENTEROLOGY | [address], [place] | | | | | [address] [place] | [address] [place], [place] | | | | | [address] [place], [place] | [address] | | | | | [address] | | | | | | [phone] | | | +--------+ + + + [...] 2019 | Encounter | | [address] [facility] | | | | | | [address] [place] | | | | | | [place] [address] | | | | | | [phone] | | | | | | | | | | | | [employer] [facility] | | +--------+ + + + + documented as of this encounter Visit Diagnoses Not on filedocumented in this encounter"
--- OUTSIDE RECORDS SUMMARY | ~2019-05-17 | XMS | Encounter Summary ---
Demographics + + + | Address | [address] | | | [place] [address] | + + + | Home Phone | | + + + | Preferred Language | Unknown | + + + | Marital Status | | + + + | Scientologist Affiliation | 1077 | + + + | Race | Unknown | + + + | Ethnic Group | Unknown | + + + Author + + + | Author | [facility] | | | and Azana | + + + | Organization | [facility] | | | and Azana | [...] [place], [place] | | | | | [address] | | + + + + + | Helena Doherty | ECON | [place], | | | | | [place] [address] | | + + + + + Care Team Providers + +------+ + | Care Strategic Client Executive Name | Role | Phone | + +------+ + | Nathan Luevano DO | PCP | | + +------+ + Encounter Details +--------+ + + + + | Date | Type | Department | Care Team | Description | +--------+ + + + + | 07/17/ | Episode | [facility] [place] | Marita Matamoros M, | | | 2019 | Changes | NEUROSURGERY [address] | Cert [place] | | | | | [address] | | | | | | [place] | | | | | | [address] | | | | | | [phone] | | | +--------+ + + + [...] ST | | | | | | CASE | | | | | | [place] [address] | | | | | | [phone] | | | | | | | | | | | | [employer]aging [employer], [facility] | | +--------+ + + + + documented as of this encounter Visit Diagnoses Not on filedocumented in this encounter"
--- OUTSIDE RECORDS SUMMARY | ~2019-05-17 | XMS | Encounter Summary ---
Demographics + + + | Address | [address] | | | [place] [address] | + + + | Home Phone | | + + + | Preferred Language | Unknown | + + + | Marital Status | | + + + | Buddhist Affiliation | 1077 | + + + | Race | Unknown | + + + | Ethnic Group | Unknown | + + + Author + + + | Author | [facility] | | | and Azana | + + + | Organization | [facility] | | | and Azana | [...] [place], [place] | | | | | [address] | | + + + + + | Helena Doherty | ECON | [place], | | | | | [place] [address] | | + + + + + Care Team Providers + +------+ + | Care Brew House Supervisor Name | Role | Phone | + +------+ + | Nathan Luevano DO | PCP | | + +------+ + Reason for Visit + + + | Reason | Comments | + + + | Other | | + + + | Procedure | | + + + Encounter Details +--------+ + + + + | Date | Type | Department | Care Team | Description | +--------+ + + + + | 02/09/ | Telephone | [facility] [place] | Agusto Pereira MD | Other; Procedure | | 2017 | | NEUROSURGERY [address] | [address] | | | | | [address] | [place] [address] | | | | | [place] | [phone] | | | | | [address] | | | | | | [phone] | | | +--------+ + + + [...] | | | | | [place] [address] | | | | | | [phone] | | | | | | | | | | | | Electrical Troubleshooter, [facility] | | +--------+ + + + + documented as of this encounter Visit Diagnoses Not on filedocumented in this encounter"
--- OUTSIDE RECORDS SUMMARY | ~2019-05-17 | XMS | Clinical Summary ---
Demographics + + + | Address | [address] | | | [place] [address] | + + + | Home Phone | | + + + | Preferred Language | Unknown | + + + | Marital Status | | + + + | Rastafari Affiliation | 1077 | + + + | Race | Unknown | + + + | Ethnic Group | Unknown | + + + Author + + + | Author | [facility] [employer] (Historical as of | | | 02-08-19) | + + + | Organization | [facility] [employer] (Historical as of | | | 02-08-19) | + + + | Address | Unknown | + + + | Phone | Unavailable | + + + Support + + + + + | Name | Relationship | Address | Phone | + + + + + | Alon Zavaleta | ECON | [address] | | | | | [place], [place] | | | | | [address] | | + + + + + Care Team Providers + +------+ + | Care Textile Bag Sewer Name | Role | Phone | + +------+ + | Nathan Luevano DO | PP | | + +------+ + Allergies + + + + + + | Active Allergy | Reactions | Severity | Noted | Comments | | | | | Date | | + + + + + + | Valdecoxib | Nausea Only | Low | 11/06/19 | | | | | | 19 | | + + + + + + | Diltiazem | Swelling | Medium | 10/25/19 | | | | | | 19 | | + + + + + + | Citalopram | Nausea Only | Low | 10/25/19 | | | | | | 19 | | + + + + + + | Codeine | Nausea and Vomiting, | Low | 10/25/19 | | | | Vertigo | | 19 | | + + + + + + | Diclofenac | Headache | Low | 11/06/19 | | | | | | 19 | | + + + + + + | Gabapentin | Nausea and Vomiting, | Low | 11/06/19 | | | | Nausea Only | | 19 | | + + + + + + | Isosorbide Dinitrate | Nausea Only, Vertigo | Low | 10/25/19 | | | | | | 19 | | + + + + + + | Escitalopram | Nausea Only | Low | 10/25/19 | | | | | | 19 | | + + + + + + | Pregabalin | Swelling | Medium | 10/25/19 | | | | | | 19 | | + + + + + + | Morphine | Nausea and Vomiting | Low | 10/25/19 | | | | | | 19 | | + + + + + + | Esomeprazole | Nausea Only | Low | 10/25/19 | | | | | | 19 | | + + + + + + | Oxycodone | Nausea and Vomiting | Low | 11/06/19 | | | | | | 19 | | + + + + + + | Tramadol | Anxiety | Low | 11/06/19 | | | | | | 19 | | + + + + + + | Solifenacin | Other (See Comments) | Medium | 10/25/19 | Choking | | Succinate | | | 19 | | + + + + + + Current Medications + + +-------+---------+------+------+-------+ | Prescription | Sig. | Disp. | Refills | Star | End | Statu | | | | | | t | Date | s | | | | | | Date | | | + + +-------+---------+------+------+-------+ | | Take 1 tablet by | | | | | Activ | | losartan-hydrochloro | mouth daily. | | | | | e | | thiazide (HYZAAR) | | | | | | | | 50-12.5 MG per | | | | | | | | tablet | | | | | | | + + +-------+---------+------+------+-------+ | methotrexate 2.5 | Take by mouth once | | | | | Activ | | MG tablet | a week. | | | | | e | + + +-------+---------+------+------+-------+ | hydroxychloroquine | Take 200 mg by mouth | | | | | Activ | | (PLAQUENIL) 200 MG | daily. | | | | | e | | tablet | | | | | | | + + +-------+---------+------+------+-------+ | mirabegron ER | Take by mouth. | | | | | Activ | | (MYRBETRIQ) 50 MG | | | | | | e | | TB24 | | | | | | | + + +-------+---------+------+------+-------+ | trospium 20 MG | Take 20 mg by mouth | | | | | Activ | | tablet | 2 (two) times daily. | | | | | e | + + +-------+---------+------+------+-------+ | ranitidine | Take 150 mg by mouth | | | | | Activ | | (ZANTAC) 150 MG | 2 (two) times | | | | | e | | tablet | daily. | | | | | | + + +-------+---------+------+------+-------+ | BIOTIN PO | Take by mouth. | | | | | Activ | | | | | | | | e | + + +-------+---------+------+------+-------+ | folic acid | Take 1 mg by mouth | | | | | Activ | | (FOLVITE) 1 MG | daily. | | | | | e | | tablet | | | | | | | + + +-------+---------+------+------+-------+ | cyanocobalamin | Take 100 mcg by | | | | | Activ | | (VITAMIN B-12) 100 | mouth daily. | | | | | e | | MCG tablet | | | | | | | + + +-------+---------+------+------+-------+ | Cholecalciferol | Take by mouth. | | | | | Activ | | 2000 units CAPS | | | | | | e | + + +-------+---------+------+------+-------+ | NALTREXONE HCL PO | Take 4.5 mg by | | | | | Activ | | | mouth. | | | | | e | + + +-------+---------+------+------+-------+ | Nutritional | Take by mouth. | | | | | Activ | | Supplements | | | | | | e | | (ESTROVEN MAXIMUM | | | | | | | | STRENGTH PO) | | | | | | | + + +-------+---------+------+------+-------+ | Diclofenac Sodium | Place onto the | | | | | Activ | | 1.6 % GEL | skin. | | | | | e | + + +-------+---------+------+------+-------+ | acetaminophen | Take 500 mg by mouth | | | | | Activ | | (TYLENOL) 500 MG | every 6 (six) hours | | | | | e | | tablet | as needed for Pain. | | | | | | + + +-------+---------+------+------+-------+ Active Problems + + + | Problem | Noted Date | + + + | Essential (primary) hypertension | 11/05/2018 | + + + | Microalbuminuria | 11/05/2018 | + + + | Overweight (BMI 25.0-29.9) | 11/05/2018 | + + + | Chronic kidney disease, stage III (moderate) ([facility]) | 10/24/2018 | + + + Social History + +-------+ [...] + +---------+ + | Alcohol Use | Drinks/We | oz/Week | Comments | | | ek | | | + + +---------+ + | Yes | | | occasional | + + +---------+ + + + + | Sex Assigned at | Date Recorded | | | | + + + | Not on file | | + + + Last Filed Vital Signs + + + + | Vital Sign | Reading | Time Taken | + + + + | Blood Pressure | 161/84 | 11/05/2018 12:00 PM PDT | + + + + | Pulse | 86 | 02/05/2019 2:00 PM PDT | + + + + | Temperature | - | - | + + + + | Respiratory Rate | - | - | + + + + | Oxygen Saturation | 99% | 11/05/2018 12:00 PM PDT | + + + + | Inhaled Oxygen | - | - | | Concentration | | | + + + + | Weight | 79.6 kg (175 lb 6.4 | 02/05/2019 2:00 PM PDT | | | oz) | | + + + + | Height | 167.6 cm (5' 6") | 02/05/2019 2:00 PM PDT | + + + + | Body Mass Index | 28.31 | 02/05/2019 2:00 PM PDT | + + + + Plan of Treatment + + + + + | Health Maintenance | Due Date | Last Done | Comments | + + + + + | Vaccine: Zoster (1 | | | | | of 2) | 0 | | | + + + + + | Vaccine: | | 12/22/1992, 06/25/1992 | | | Dtap/Tdap/Td (1 - | 3 | | | | Tdap) | | | | + + + + + | DEXA SCAN SCREENING | | | | | | 5 | | | + + + + + | Vaccine: | | 05/10/2015 | | | Pneumococcal 65+ | 6 | | | | Low/Medium Risk (2 | | | | | of 2 - PPSV23) | | | | + + + + + | Vaccine: Influenza | | 03/18/2018, 03/29/2017, | | | (#1) | 9 | 03/03/2016, Additional history | | | | | exists | | + + + + + Results Not on filefrom Last 3 Months Insurance + +--------+ +--------+-------+---------+ | Payer | Benefi | Subscriber | Type | Phone | Address | | | t Plan | ID | | | | | | / | | | | | | | Group | | | | | + +--------+ +--------+-------+---------+ | [place] - [employer]ETNA | MA-AET | [id number] | Medica | | | | | NA | | re | | | + +--------+ +--------+-------+---------+ + +--------+ +--------+ + + | Guarantor Name | Accoun | Relation to | Date | Phone | Billing Address | | | t Type | Patient | of | | | | | | | | | | + +--------+ +--------+ + + | ASHLY ZAVALETA | Person [birth year] Self [birth year] Home: | [address] | | | al/Fam | | 1940 | [phone] [place] | | | [place] | | | [phone] | [phone] | + +--------+ +--------+ + +
--- OUTSIDE RECORDS SUMMARY | ~2019-05-17 | XMS | Encounter Summary ---
Demographics + + + | Address | [address] | | | [place] [address] | + + + | Home Phone | | + + + | Preferred Language | Unknown | + + + | Marital Status | | + + + | Jain Affiliation | [id number] | + + + | Race | Unknown | + + + | Ethnic Group | Unknown | + + + Author + + + | Author | [facility] | | | and Azana | + + + | Organization | [facility] | | | and Azana [...] [place], [place] | | | | | [address] | | + + + + + | Helena Doherty | ECON | [place], | | | | | [place] [address] | | + + + + + Care Team Providers + +------+ + | Care Manager Math Name | Role | Phone | + +------+ + | Nathan Luevano DO | PCP | | + +------+ + Reason for Visit + + + | Reason | Comments | + + + | Back Pain | Pain across the lower back and hips | + + + | Neck Pain | Pain radiates across the right arm | + + + Evaluate & Treat (Routine) +--------+ + + + + + | Status | Reason | Specialty | Diagnoses / | Referred By | Referred To | | | | | Procedures | Contact | Contact | +--------+ + + + + + | Closed | Specialty | Physical | Diagnoses | Tee, | Kirit, | | | Services | Medicine and | S/P lumbar | Onesimo | Osman Price MD | | | Required | Rehabilitatio | fusion | FABIAN Huff | [address] | | | | n | Lumbar | [address] [place] | | | | | radiculopath | [address] | [place] | | | | | y Scoliosis | [address] | [address] Phone: | | | | | of lumbar | Chery Gottlieb, | [phone] | | | | | spine, | [place] [address] | Fax: | | | | | unspecified | Phone: | [phone] | | | | | scoliosis | [phone] | | | | | | type | Fax: | | | | | | Sacroiliitis | [phone] | | | | | | (HCC) | | | +--------+ + + + + + Encounter Details +--------+---------+ + + + | Date | Type | Department | Care Team | Description | +--------+---------+ + + + | 11/28/ | Office | [facility] | Yanndajose manuelcz, | DEGENERATIVE DISC | | 2018 | Visit | PHYSIATRY [address] | FABIAN Castillo [address] | DISEASE, CERVICAL | | | | [place]age, | [place], | SPINE (Primary Dx); | | | | [place] [address] | [place] [address] | Cervical | | | | [phone] | [phone] | radiculopathy; | | | | | | Sacroiliitis (HCC); | | | | | | DEGENERATIVE DISC | | | | | | DISEASE, LUMBAR | | | | | | SPINE; S/P lumbar | | | | | | fusion; Trochanteric | | | | | | bursitis of both | | | | | | hips | +--------+---------+ + + + Social History [...] + + + | Blood Pressure | 137/73 | 11/28/2017 4:03 PM | | | | | PDT | | + + + + + | Pulse | 85 | 11/28/2017 4:03 PM | | | | | PDT [...] + | Weight | 87.1 kg (192 lb) | 11/28/2017 4:03 PM | | | | | PDT | | + + + + + | Height | 167.6 cm (5' 6") | 11/28/2017 4:03 PM | | | | | PDT | | + + + + + | Body Mass Index | 30.99 | 11/28/2017 4:03 PM | | | | | PDT | | + + + + + documented in this encounter Patient Instructions Patient Instructions Anna Aponte PA-C - 11/28/2017 4:00 PM PDT1) Cervical epidura l steroid injection Call us if you want bilateral bursa injections at end of month, or we can just schedule it out Follow-up at the hospital thirty minutes before your scheduled procedure to allow for time to check in. You may eat and drink as usual on the day of the procedure. If you are scheduled for an epidural injection do not take any blood thinning medications f or at least 5-7 days prior to your procedure unless you have been instructed by another phys ician not to discontinue blood thinning medications. If you are having a procedure other than an epidural injection (i.e. facet injection, media l branch block, SI joint injection or other joint injection) it is not absolutely necessary to discontinue blood thinning medications but doing so will decrease the risk of bruising or bleeding. If you have had a prior stroke, DVT or PE or if you are taking blood thinning medication be cause you have atrial fibrillation, a prosthetic cardiac valve replacement or heart stenting do not stop taking your blood thinning medications unless you have permission from your car diologist or primary care provider. All other medications should be taken as usual on the day of the procedure. Common blood thinning medications include: Aspirin (a baby aspirin is o.k.) Ibuprofen (Advil or Motrin) Naproxen (Aleve) Nabumetone (Relafen) Clopidogrel (Plavix) Dipyridamole/ASA (Aggrenox) Warfarin (Coumadin) Dabigatran (Pradaxa) Rivaroxaban (Xarelto) There are many others. If you have questions about your medications and whether or not you should stop any medications please contact our office. If you are having an epidural injection or if you take any medication for relaxation/sedati on on the day of the procedure you must provide a wagon driver salesperson to take you home. For all procedur es it is recommended that someone else drive you home. documented in this encounter Progress Notes Anna Aponte PA-C - 11/28/2017 4:00 PM PDTFormatting of this note might be differe nt from the original. CHIEF COMPLAINT: Chief Complaint Patient presents with Back Pain Pain across the lower back and hips Neck Pain Pain radiates across the right arm HISTORY OF PRESENT ILLNESS: The patient is a 77 y.o. female being seen today for complaint s of neck pain. She has seen us in the past for low back pain however she underwent a lumba r fusion with Dr. Pereira, L4-S1 in 2017. She continues to have pain over the trochanteric burs itis that this isn't manageable at this time. She is now wondering if she can get steroid i njections to her neck as she does have a lot of neck pain. Since the symptoms began, she has noticed that symptoms have been chronic and stable. She d escribes the pain as a aching, sharp and shooting feeling. She rates the pain as severe. Her symptoms worsen with standing, walking. Her symptoms improve with rest. She does report radiation into the arms.The patient does describe numbness of the lower lef t leg. She does report weakness of the left leg. She does not have bowel and bladder dysf unction. She does not have saddle anesthesia. Treatments for these complaints have included previous trail of trochanteric bursa injectio n, left sacroiliac joint injection, use of gabapentin which helps her sleep but does not hel p improve the pain, massage therapy, NSAIDS. Patient's medications, allergies, past medical, surgical, social and family histories were reviewed and updated as appropriate. PAST MEDICAL HISTORY: Past Medical History: Diagnosis Date Abdominal pain Bulging lumbar disc Cervical radiculopathy Left Cervical radiculopathy 11/28/2017 Chronic pain Cough Depression Diarrhea Displacement of [...] arthritis(714.0) Sacroiliitis (HCC) 09/04/2012 Sjogren's syndrome (HCC) Trochanteric bursitis of both hips 11/28/2017 PAST SURGICAL HISTORY: Past Surgical History: Procedure Laterality Date APPENDECTOMY 1959 [place] BLADDER SUSPENSION 2005 with Rectocele repair; Dr. Reid and Dr. Watkins BUNIONECTOMY 04/10/2007 [facility] Bunalma; Dr. Db Berrios CATARACT REMOVAL Bilateral 1996 [facility] CHOLECYSTECTOMY, LAPAROSCOPIC 07/11/2011 Dr. Marquez COLONOSCOPY 2003 [facility] COLONOSCOPY N/A 05/23/2017 Procedure: COLONOSCOPY; Surgeon: Joshua Hilliard MD; Location: [facility] MEDICAL PROCEDURE UNIT EGD AND COLONOSCOPY 07/06/[address] [facility] [address]. Jc EGD AND COLONOSCOPY 2009 ELECTROCARDIOGRAM 05/19/2009 Dr. Boss ELECTROCARDIOGRAM 08/12/2009 Dr. Radha Stafford; [facility] ENDOSCOPY 07/07/2011 [facility]; Dr. Marquez FINGER TRIGGER RELEASE Right 05/28/2014 Middle finger; Dr. Longo Stefano FINGER TRIGGER RELEASE HEEL SPUR SURGERY Right 1997 Dr. Berrios HYSTERECTOMY, TOTAL ABDOMINAL 1972 [place] LUMBAR SPINE SURGERY Anterior 02/14/2017 Procedure: L4-5 Lateral Anterior Interbody Fusion, L5-S1 Transforaminal Lumbar Interbody F usion; Surgeon: Agusto Pereira MD; Location: [facility] MAIN OR NASAL SEPTUM SURGERY 06/06/2016 Dr. Lindsey; [facility] NEUROMA SURGERY Left 1998 PERINEAL SKIN BRIDGE 02/[address] Reid RETINAL DETACHMENT SURGERY 1997 Dr. Andrade ROTATOR CUFF REPAIR Right 04/20/2015 Dr. Jesus TONSILLECTOMY 1944 [place], [place] CURRENT MEDICATIONS: Current Outpatient Prescriptions Medication Sig [...] sleep, (TYLENOL PM EXTRA STRENGTH PO) Take 1 capsule by mouth nig htly. folic acid 1 mg tablet Take 1 [...] Ankles Solifenacin Other (See Comments) Reaction: Choking SOCIAL HISTORY: The patient reports that she has never smoked. She has never used smokeless tobacco. She r eports that she drinks alcohol. She reports that she does not use drugs. FAMILY HISTORY: Family History Problem Relation Age of Onset Parkinsonism Father Heart defect Mother enlarged Stroke Mother 70 Dementia Mother Alcohol abuse Sister Other (see comment) Sister Arthritis Sister Gout Sister No Known Problems Paternal Grandfather No Known Problems Paternal Grandmother No Known Problems Maternal Grandfather Heart defect Maternal Grandmother enlarged No Known Problems Child Heart disease Paternal Aunt Lung cancer Maternal Uncle Heart disease Maternal Aunt REVIEW OF SYSTEMS: GENERALLY: No fever, chills, no night sweats, no weight gain, no weight loss, no anemia, no fatigue. EYES: + eye problems, no impaired sight, +eye glasses/contacts,+ eye injury, no double visi on, no transient blindness. EARS, NOSE, THROAT and MOUTH: No change in sense taste/smell, + hearing difficulty, no rin ging in ears, no drainage from ears, no ear injury, no dizziness, no voice change, + difficu lty swallowing, no snoring, no sleep apnea/CPAP, no sinus trouble, no dental work. NEUROMUSCULAR: + numbness/pain of arms, + numbness/pain of legs, + awake with numbness/sharmila n, + weakness, +muscle aching, +coordination difficulty, + change in walk, no head injury, n o neck injury, no back injury, + pain in neck, + pain in back, no stroke, no fainting spells , no loss of consciousness, no tremor/shaking, no seizures, + headaches, no migraines, + mem ory loss, no speech difficulty, +confusion, no numbness of face. PSYCHIATRIC: +depression, +difficulty sleeping, + anxiety, no bipolar disorder. CARDIOVASCULAR/PULMONARY: No heart attack, no heart murmur, no fluttering heart, no shortn ess of breath, no cough, no Tuberculosis, +chest pain, no swelling ankles, no bloody coughin g, no asthma, no COPD/emphysema. GASTROINTESTINAL: No bowel disease, no nausea/vomiting, no rectal bleeding/hemorroids, no constipation, no fecal/stool incontinence, no liver/gallbladder disease, no abdominal pain. KIDNEY DISEASE:+ frequent urination, no painful/difficult with urination, n+urinary inconti nence, + bladder problems, no impotence, no irregular period, no vaginal discharge. ENDOCRINE: No diabetes, no thyroid disease, no osteoporosis/osteopenia, no drainage from br easts. INTEGUMENTARY/SKIN: No lump in breasts, no skin disease or skin changes, no rash/itch. HEMATOLOGIC: No enlarged lymph nodes, no ease or unusual bleeding, no cancer. RHEUMATOLOGIC:+ joint pain/arthritis, +Rheumatoid Arthritis PHYSICAL EXAMINATION: Vitals: 11/28/17 1603 BP: 137/73 Pulse: 85 PainSc: 5 PainLoc: Back Body mass index is 30.99 kg/m. GENERAL: The patient is well developed and well nourished. She does not appear uncomfortab le when seated. HEENT: HEAD/FACE: EYES: EARS: NASOPHARNYX: OROPHARNYX: Normocephalic and atraumatic. There are no areas of recent trauma. Normal sclerae without icterus. No drainage or tenderness. Clear without drainage. Clear without erythema. SKIN Limited skin exam shows no significant rashes or lesions. There are not scars in the lumbar region. CHEST: The patient is in no acute respiratory distress with unlabored respirations. HEART: There is not lower extremity edema. ABDOMEN: The patient is overweight. NEUROLOGIC: The patient is awake, alert, and oriented to time, place, person. She follows simple and complex commands. Her speech is fluent. She comprehends speech well. 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 She has appropriate fund of knowledge Cranial nerves 2-12 appear grossly intact. Sensory exam does show diminished sensation to light touch in the left lower extremities. MUSCULOSKELETAL There is no tenderness in the midline of the cervical or thoracic spine. T here is no major palpable deformity of the spine. Range of motion testing of the cervical spine was unremarkable. Spurling sign was negative. Shoulder examination shows well preserved range of motion with external rotation, internal rotation and abduction. Impingement testing was Negative. There was no tenderness over th e bicipital groove or over the AC joint. Speed's test was Negative. Empty can test was Nega tive. Strength testing, including strength testing of the infraspinatus, supraspinatus an d subscapularis, in bilateral upper extremities showed 5/5 strength with no focal weakness. RADIOGRAPHIC REVIEW: The patient's imaging was reviewed in detail with the patient today during the visit. Lumb ar MRI from 07/19/2016 shows multiple disc bulges, the disc bulge at L4/L5 is off the right c ausing severe right L4/L5 foraminal stenosis, she has as disc bulge at L5/S1 off to the left causing moderate foraminal stenosis, most likely responsible for her pain. Cervical MRI fr om 2011 shows cervical degenerative disc disease mostly at C5-C6 causing moderate spinal cor d stenosis. Cervical x-ray from August 2017 shows degenerative disc disease reversal of the lordotic curve worsening C5-C6. ASSESSMENT: 1. DEGENERATIVE DISC DISEASE, CERVICAL SPINE 2. Cervical radiculopathy 3. Sacroiliitis (HCC) 4. DEGENERATIVE DISC DISEASE, LUMBAR SPINE 5. S/P lumbar fusion 6. Trochanteric bursitis of both hips PLAN: 1. 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 Unfortunately she cont inues to have significant discomfort. It appears to me that the pain is primarily coming fr om the cervical DDD. I did feel that she would be a good candidate for interventional proce dures and I offered a C7/T1 ILESI. 2. Medications have been reviewed at today's visit with no changes made at this time. She is taking extra strength Tylenol, diclofenac, tizanidine. 3. She was encouraged to fill out the post injection pain log and follow up in 2 weeks. ELECTRONICALLY SIGNED BY: Anna Aponte PA-C, 11/28/2017 CC: Yared Luevanotronically signed by Anna Aponte PA-C at 12/06/2017 5:19 PM PDTdocumented in this encounter Plan of Treatment +--------+ [...] [place] | | | | | | [place] [address] | | | | | | [phone] | | | | | | | | | | | | Reinforcing Metal WorkerNaomi | | +--------+ + + + + documented as of this encounter Results FL ROCK Cervical Thoracic Interlaminar (12/20/2017 4:50 PM PDT) + + | Specimen | + + | | + + + + + | Narrative | Performed At | + + + | | [facility] | | 12/20/2017CERVICAL INTERLAMINAR EPIDURAL STEROID INJECTION CLINICAL | | | HISTORY: ICD-10 CODE M54.12 CERVICAL RADICULOPATHY [place] | | | Jack presents to the fluoroscopy suite for a fluoroscopically-guided | | | C7-T1 interlaminar epidural steroid injection, right of midline, as | | | part of conservative management for chronic pain with cervical | | | radiculopathy and degenerative disc disease. After informed consent | | | was obtained, the patient lay in the prone position on the fluoroscopy | | | table. The area was identified under fluoroscopic guidance. The area | | | was prepped and draped in sterile fashion. A 25-gauge, 1.5-inch needle | | | was inserted into this region and approximately 3 mL of buffered 1% | | | lidocaine was infused. Then a 22-gauge epidural needle was advanced | | | into the epidural space at the C7-T1 level. Confirmation into the | | | epidural space was obtained with loss of resistance, as well as | | | infusion of approximately 1 mL of Isovue contrast which showed | | | epidural flow. Then, a combination of 3 mL of normal saline and 1 mL | | | of 10 mg/mL dexamathasone was infused. The patient tolerated the | | | procedure well without complications. Pre- and post-procedure blood | | | pressures were stable. The patient was given verbal as well as written | | | followup instructions. Prior to the start of the procedure, the | | | following were performed and verified, including correct patient | | | identity, correct site/side marked and visible, agreement on the | | | procedure to be done, correct patient positioning and an accurate | | | procedure consent form. Any safety precautions based on clinical | | | history and/or medication use have been addressed. I personally | | | performed the procedure above. Estimated blood loss: | | | MinimalComplications: NoneFindings: As expectedAnesthesia: Local | | | 1% Lidocaine | | |I personally performed the procedure above. | | | | | |Estimated blood loss: Minimal | | |Complications: None | | |Findings: As expected | | |Anesthesia: Local 1% Lidocaine | | | | | | | | + + + + +---------+ + + | Performing | Address | City/State/Zipcode | Phone Number | | Organization | | | | + +---------+ + + | [facility] | | | | + +---------+ + + documented in this encounter Visit Diagnoses + + | Diagnosis | + + | DEGENERATIVE DISC DISEASE, CERVICAL SPINE - Primary Degeneration of cervical | | intervertebral disc | + + | Cervical radiculopathy Brachial neuritis or radiculitis nos | + + | Sacroiliitis (HCC) Sacroiliitis, not elsewhere classified | + + | DEGENERATIVE DISC DISEASE, LUMBAR SPINE Degeneration of lumbar or lumbosacral | | intervertebral disc | + + | S/P lumbar fusion Arthrodesis status | + + | Trochanteric bursitis of both hips Enthesopathy of hip region | + + documented in this encounter
--- OUTSIDE RECORDS SUMMARY | ~2019-05-17 | XMS | Encounter Summary ---
Demographics + + + | Address | [address] | | | [place] [address] | + + + | Home Phone | | + + + | Preferred Language | Unknown | + + + | Marital Status | | + + + | Pentecostalism Affiliation | Unknown | + + + | Race | White | + + + | Ethnic Group | Not or | + + + Author + + + | Author | [facility] | + + + | Organization | [facility] | + + + | Address | Unknown | + + + | Phone | Unavailable | + + + Support + + +---------+ + | Name | Relationship | Address | Phone | + + +---------+ + | Alon Santiago | ECON | Unknown | | + + +---------+ + Care Team Providers + +------+ + | Care Fire Investigation Manager Name | Role | Phone | + +------+ + | Thee Boss MD | PCP | | + +------+ + Encounter Details +--------+ + + + + | Date | Type | Department | Care Team | Description | +--------+ + + + + | 05/18/ | MyChart | Rheumatology at | [facility] | RE: Dr. Rosas Lucia | | 2012 | Encounter | [facility] [phone] | | | | | [address] | [address] | | | | | [place] Mailcode: | [place], [place] | | | | | [address] | [phone] | | | | | [address] | [phone] | | | | | [place], [place] | | | | | | [address] | | | | | | [phone] | | | +--------+ + + + [...]
--- OUTSIDE RECORDS SUMMARY | ~2019-05-17 | XMS | Encounter Summary ---
Demographics + + + | Address | [address] | | | [place] [address] | + + + | Home Phone | | + + + | Preferred Language | Unknown | + + + | Marital Status | | + + + | Taoist Affiliation | Unknown | + + + | Race | White | + + + | Ethnic Group | Not or | + + + Author + + + | Author | [facility] | + + + | Organization | [facility] | + + + | Address | Unknown | + + + | Phone | Unavailable | + + + Support + + +---------+ + | Name | Relationship | Address | Phone | + + +---------+ + | Alon Santiago | ECON | Unknown | | + + +---------+ + Care Team Providers + +------+ + | Care Sheet Turner Name | Role | Phone | + +------+ + | Thee Boss MD | PCP | | + +------+ + Encounter Details +--------+ + + + + | Date | Type | Department | Care Team | Description | +--------+ + + + + | 08/03/ | MyChart | Rheumatology at | [facility] | RE: Ashly | | 2013 | Encounter | [facility] [phone] | [place] | | | | [address] | miley | | | | Amara Chatman Mailcode: | [place], [place] | | | | | [address] | [phone] | | | | | [address] | [phone] | | | | | [place], [place] | | | | | | [address] | | | | | | [phone] | | | +--------+ + + + [...]
--- OUTSIDE RECORDS SUMMARY | ~2019-05-17 | XMS | Encounter Summary ---
Demographics + + + | Address | [address] | | | [place] [address] | + + + | Home Phone | | + + + | Preferred Language | Unknown | + + + | Marital Status | | + + + | Islam Affiliation | 1077 | + + + | Race | Unknown | + + + | Ethnic Group | Unknown | + + + Author + + + | Author | [facility] | | | and Azana | + + + | Organization | [facility] | | | and Azana [...] [place], [place] | | | | | [address] | | + + + + + | Helena Doherty | ECON | [place], | | | | | [place] [address] | | + + + + + Care Team Providers + +------+ + | Care Waiter/Waitress Formal Name | Role | Phone | + [...] left hip | [address] | [place] | | | | | Trochanteric | Ave | [address] Phone: | | | | | bursitis, | [place], | [phone] | | | | | right hip | [place] | Fax: | | | | | Fibromyalgia | [address] | [phone] | | | | | Procedures | Phone: | | | | | | PT Noel w/ | [phone] | | | | | | Aiyana | Fax: | | | | | | [place] | [phone] | | +--------+--------+ + + + + Encounter Details +--------+---------+ + + + | Date | Type | Department | Care Team | Description | +--------+---------+ + + + | 06/03/ | Office | [facility] | [place], | Trochanteric | | 2018 | Visit | [facility] | Sophia Kingsley PA-C | bursitis of both | | | | OP [address] | [address] | hips (Primary Dx); | | | | [place] | [place], [place] | Neck pain; | | | | [address] | [address] | Fibromyalgia | | | | [phone] | [phone] | | | | | | | | | | | | Aiynaa Fish S, PT | | | | | | [address] | | | | | | [place] | | | | | | [address] | | | | | | | [...] encounter Progress Notes Aiyana Fish, PT - 06/03/2018 1:00 PM PSTFormatting of this note might be different fro m the original. [facility] TH[facility] PT OP [address] [place] [address] Physical Therapy Daily Treatment Note Date: 06/03/2018 Patient Information Patient Name: Ashly Santiago Date of : 1940 Age: 78 y.o. Encounter Diagnoses Code Name Primary? M70.61, M70.62 Trochanteric bursitis of both hips Yes M54.2 Neck pain M79.7 Fibromyalgia Date of Onset: 04/10/2018 Referring Provider: Sophia Bush PA-C Rehab Precautions Office Visit from 04/17/2018 in [facility] PT OP Rehab Precautions Precautions None Rehab Learning Style Office Visit from 04/17/2018 in [facility] OP Office Visit fro m 10/19/2016 in [facility] PT OP Learning Style Patient's [employer] Learning Style listening, reading, observation, performance of task lis tening, reading, observation, performance of task Start Time: 1304 Stop time: 1359 Duration: 55 minutes Timed Treatment Codes: 55 minutes # of PT Visits to Date: 6 Subjective: Pt has been very busy with 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 She is having pain from "head to toe" Pain Assessment: Pain Rating Pre Assessment: 6 Pain Rating Post Assessment: 5 Location: neck, left shoulder and hips Objective: Education: Persistent pain education "Do more, Hurt more" Exercise: Instruction in side bending to stretch her "side body" muscles Manual Treatment: Myofascial release and positional release therapy to multiple areas: Dur al tube mobilization, hips, sacrum, upper and mid thoracic spine and cervical spine Assessment: Good response to treatment. Fascial release resulted in improved mobility in the upper tho racic and cervical region and lower pain level reported to be 5/10 following the session. Plan: Continue with manual therapy and development of home program Electronically signed by: Aiyana Fish, PT, 06/03/2018 14:01 Patient Name: Ashly Real Jack/: 1940/ documented in this en counter Plan of Treatment +--------+ + + + + | Date | Type | Specialty | Care Team | Description | +--------+ + + + + | 05/19/ | Hospital | Radiology | Dennys Pineda PA-C | | | 2018 | Encounter | | [address] | | | | | | [address] [facility] | | | | | | [place] [address] | | | | | | [phone] | | | | | | | | | | | | Molding Utility WorkerNaomi | | +--------+ + + + + documented as of this encounter Visit Diagnoses + + | Diagnosis | + + | Trochanteric bursitis of both hips - Primary Enthesopathy of hip region | + + | Neck pain Cervicalgia | + + | Fibromyalgia Mylagia and myositis, unspecified | + + documented in this encounter
--- OUTSIDE RECORDS SUMMARY | ~2019-05-17 | XMS | Encounter Summary ---
Demographics + + + | Address | [address] | | | [place] [address] | + + + | Home Phone [...] | + + +---------+ + | Alon Santaigo | ECON | Unknown | | + + +---------+ + Care Team Providers + +------+ + | Care Board Stacker Name | Role | Phone | + +------+ + | Thee Boss MD | PCP | | + +------+ + Encounter Details +--------+------+ + + + | Date | Type | Department | Care Team | Description | +--------+------+ + + + | 12/23/ | Lab | Laboratory, | | Encounter for | | 2013 | | Specimen Collection | | chronic pain | | | | at [facility] 3rd Floor | | management | | | | [address] | | | | | | [place], | | | | | | [place] [address] | | | | | | [phone] | | | +--------+------+ + + + [...] | + +--------+ + + + | DRUG SCR UR, CHRONIC | Routin | 12/23/2013 | Encounter for | Results for this | | PAIN; NO CONFIRM | e | 3:47 PM | chronic pain | procedure are in the | | | | PDT | management | results section. | + +--------+ + + + documented in this encounter Results DRUG SCR UR, CHRONIC PAIN; NO CONFIRM (12/23/2013 3:47 PM PDT) + + + + + [...] + + + + + + | OPIATE, | Negative | Negative | [facility] | [...] Cannabinoid >=50 ng/mL | | | Results of this drug screen are not confirmed by an alternate method. | | | Results are to be used for medical (i.e. treatment) purposes only. | | + + + + + + + + | Performing | Address | City/State/Zipcode | Phone Number | | Organization | | | | + + + + + | [facility] | [address] | [place] [address] | | | SERVICES, CORE | [address] | | | + + + + + documented in this encounter Visit Diagnoses + + | Diagnosis | + + | Encounter for chronic pain management | + + documented in this encounter"
--- OUTSIDE RECORDS SUMMARY | ~2019-05-17 | XMS | Encounter Summary ---
Demographics + + + | Address | [address] [facility] | | | [place] [address] | + + + | Home Phone [...] + | Author | [facility] | | | and Azana | + + + | Organization | [facility] | | | and [...] [place], [place] | | | | | [address] | | + + + + + | Helena Doherty | ECON | [place], | | | | | [place] [address] | | + + + + + Care Team Providers + +------+ + | Care Wheel Fitter Name | Role | Phone | [...] + + | 02/14/ | Surgery | [facility] | Agusto Pereira MD | L4-5 Lateral | | 2017 | | MED CTR OR INTRA OP | [address] | Anterior Interbody | | | | [address] | [place] [address] | Fusion, L5-S1 | | | | [place] | [phone] | Transforaminal | | | | [address] | | Lumbar Interbody | | | | [phone] | | Fusion | +--------+---------+ + + [...] of admission the patient was admitted to [facility] and underwent a L4-S1. Patient was transferred [...] signed by: Eric Mcmanus, 02/17/2017 8:41 [facility] documented in this encounter Discharge Instructions Instructions [...] month post op appointment before your appointment. [phone] [employer]. [address] [place] [address]. All righ ts reserved. This information is [...] might be different f rom the original. [facility] NEUROSURGERY PROGRESS NOTE PATIENT NAME: Ashly Santiago [...] 4 mg 4 mg Intravenous Q6H PRN ADMON Acuña 4 mg at 02/17/17 0500 oxyCODONE [...] has no apparent deficits with short or senior living memory. MOTOR EXAM: Motor strength is stable [...] note might be different from the origin [facility] NEUROSURGERY PROGRESS NOTE PATIENT NAME: Ashly Santiago [...] has no apparent deficits with short or senior living memory. MOTOR EXAM: Motor strength is stable [...] Gilmore PA-C - 017 7:38 AM PDT [facility] NEUROSURGERY PROGRESS NOTE PATIENT NAME: Ashly Santiago [...] has no apparent deficits with short or superintendent terminal memory. MOTOR EXAM: Motor strength is stable [...] | | | | | [address] [facility] | | | | | | [place] [address] | | | | | | [phone] | | | | | | | | | | | | Folder Machine AdjusterNaomi | | +--------+ + + + + [...] | | [place] | | | n [place] | | | Frame | | | and | | | [place] | | | [place] | | | Flat | | | [...] | | | n | | | [place], | | | [place] | | | [place] | | | Flat | | | [...] | | | | Pharmacist Nazanin Trejo, [facility] | | | | [...]
--- OUTSIDE RECORDS SUMMARY | ~2019-05-17 | XMS | Encounter Summary ---
Demographics + + + | Address | [address] | | | [place] [address] | + + + | Home Phone | | + + + | Preferred Language | Unknown | + + + | Marital Status | | + + + | Quaker Affiliation | 1077 | + + + | Race | Unknown | + + + | Ethnic Group | Unknown | + + + Author + + + | Author | [facility] | | | and Azana | + + + | Organization | [facility] | | | and [...] [place], [place] | | | | | [address] | | + + + + + | Helena Doherty | ECON | [place], | | | | | [place] [address] | | + + + + + Care Team Providers + +------+ + | Care Fondant Puff Maker Name | Role | Phone | + +------+ + | Nathan Luevano DO | PCP | | + +------+ + Reason for Referral Evaluate & Treat (Routine) + + + + + + + | Status | Reason | Specialty | Diagnoses / | Referred By | Referred To | | | | | Procedures | Contact | Contact | + + + + + + + | Pending | Specialty | Neurosurgery | Diagnoses | Edwin, | Agusto Pereira | | Review | Services | | Lumbar | FABIAN Noyola | MD [address] | | | Required | | radiculopath | [address] | | | | | y Lumbar | [address] | [place], [place] | | | | | foraminal | [place] | [address] | | | | | stenosis | [place], [place] | Phone: | | | | | Fibromyalgia | [address] | [phone] | | | | | | Phone: | Fax: | | | | | Degenerative | [phone] | [phone] | | | | | disc | Fax: | | | | | | disease, | [phone] | | | | | | lumbar S/P | | | | | | | lumbar | | | | | | | fusion | | | + + + + + + + Reason for Visit + + + | Reason | Comments | + + + | Back Pain | Right sided low back pain. | + + + Follow Up (Routine) +--------+--------+ + + + + | Status | Reason | Specialty | Diagnoses / | Referred By | Referred To | | | | | Procedures | Contact | Contact | +--------+--------+ + + + + | Closed | | Physical | Diagnoses | | Zierenberg, | | | | Medicine and | | Eleazar, | Osman Price MD | | | | Rehabilitatio | Intervertebr | Sophia Kingsley, | [address] | | | | n | al disc | PA-C [address] [facility] | | | | | disorders | [address] | [place], [place] | | | | | with | Ave | [address] Phone: | | | | | radiculopath | [place], | [phone] | | | | | y, lumbar | [place] | Fax: | | | | | region | [address] | [phone] | | | | | | Phone: | | | | | | | [phone] | | | | | | | Fax: | | | | | | | [phone] | | +--------+--------+ + + + + Encounter Details +--------+---------+ + + + | Date | Type | Department | Care Team | Description | +--------+---------+ + + + | 05/05/ | Office | [facility] | Dennys Pineda PA-C | Lumbar radiculopathy | | 2019 | Visit | PHYSIATRY [address] | [address] | (Primary Dx); | | | | [place], | [address] [place] | Lumbar foraminal | | | | [place] [address] | [place] [address] | stenosis; | | | | [phone] | [phone] | Fibromyalgia; | | | | | | DEGENERATIVE DISC | | | | | | DISEASE, LUMBAR | | | | | | SPINE; S/P lumbar | | | | | | fusion; Scoliosis of | | | | | | lumbar spine, | | | | | [...] + + + | Blood Pressure | 118/64 | 05/05/2019 3:36 PM | | | | | PST | | + + + + + | Pulse | 78 | 05/05/2019 3:36 PM | | | | | PST [...] + + + + | Weight | 79.4 kg (175 lb) | 05/05/2019 3:36 PM | | | | | PST | | + + + + + | Height | 167.6 cm (5' 6") | 05/05/2019 3:36 PM | | | | | PST | | + + + + + | Body Mass Index | 28.25 | 05/05/2019 3:36 PM | | | | | PST | | + + + + + documented in this encounter Patient Instructions Patient Instructions Dennys Pineda PA-C - 05/05/2019 3:40 PM PSTFormatting of this note mi ght be different from the original. 1) Bilateral L3-L4 Transforaminal Epidural Steroid Injections ordered today. Our office adrianne l call you once we have Insurance approval to move forward with next step in treatment plan. 2) Continue with at home exercises. 3) Continue with current Rx medications as prescribed and directed. 4)Referral to Dr. Pereira per patient 5) Follow up 3-4 weeks after injection. Common Spine and Disk Problems The most common serious back problemshappen when disks tear, bulge, or rupture. In such c ases, an injured disk can no longer cushion the vertebrae and absorb shock. As a result, the rest of your spine may also weaken. This can lead to pain, stiffness, and other symptoms. Torn annulus. A sudden movement may cause a tiny tear in an annulus. Nearby ligaments ma y stretch. Contained herniated disk. As a disk wears out, the nucleus may bulge into the annulus an d press on nerves. Extruded herniateddisk. When a disk ruptures, its nucleus can squeeze out and irritate a nerve. Arthritis. As disks wear out over time, bone spurs form. These growths can irritate nerv es and inflame facets. Instability. As a disk stretches, the vertebrae slip back and forth. This can put pressu re on the annulus. Spondylolisthesis.Thisis a condition in which one vertebra has moved forward or back narayanan, in relation to the one above or below it. Thiscauses a crack (stress fracture) in th e areas that link the vertebrae together. This may put pressure on the annulus, stretch the disk, and irritate nerves. Date Last Reviewed: 11/23/201719993280-0705 [employer]. [address] [place] [address], [place] [address]. All righ ts reserved. This information is not intended as a substitute for professional medical care. Always follow your healthcare professional's instructions. documented in this encounter Progress Notes Sheree Carlson, Center Human Resources Manager - 05/05/2019 3:40 PM PSTFormatting of this note might b e different from the original. Dennys Pineda PA-C [address] [facility] [place], [address] [place], [place] [id number] FAX: CHIEF COMPLAINT: Chief Complaint Patient presents with Back Pain Right sided low back pain. HISTORY OF PRESENT ILLNESS: Ashly Santiago is a 79 y.o. female being seen today on follow-up for complaints of low jordi k pain. The patient has been seen for this complaint in the past. Previously it was recomme nded she have trigger point injections and physical therapy. She reports that the treatment was effective at the time. Ashly Santiago reports that the symptoms are worsening. She rates the pain as severe. Sh e describes the pain as aching, sharp, burning, tingling, throbbing, soreness, localized or radiating to right lower extremity. Her symptoms worsen with standing washing dishes or co oking, walking long distances, sitting. Her symptoms improve with change in position, rest. The patient does not describe numbness of the bilateral lower extremities. She does rep ort weakness of the bilateral lower extremities, especially walking or standing long periods . She does not have bowel and bladder dysfunction. She does not have saddle anesthesia. Treatments for these complaints have included PT, injections, medications, TENS unit, surge florence. She is requesting to be referred to Dr. Pereira for further evaluation of her lower back. She already has referral to Dr. Pereira for Cervical spine. Patient's medications, allergies, past medical, surgical, social and family histories were reviewed and updated as appropriate. CURRENT MEDICATIONS: Current Outpatient Medications Medication Sig Dispense Refill Cholecalciferol (VITAMIN D3 PO) Take 5,000 Units by mouth Daily. cyanocobalamin (VITAMIN B-12) 1000 MCG tablet Take 1,000 mcg by mouth Daily. diclofenac (VOLTAREN) 1% GEL Apply 1 g topically 2 times daily. Diphenhydramine-APAP, sleep, (TYLENOL PM EXTRA STRENGTH PO) Take 1 capsule by mouth nig htly. Emollient (DERMEND BRUISE FORMULA EX) Apply topically Twice a week. fexofenadine (CASI ALLERGY) 180 mg tablet Take 180 mg by mouth Daily. folic acid (FOLVITE) 400 MCG tablet Take 400 mcg by mouth Daily. hydroxychloroquine (PLAQUENIL) 200 mg tablet Take 200 mg by mouth Daily. losartan-hydrochlorothiazide (HYZAAR) 50-12.5 MG per tablet Take 1 tablet by mouth Lee Ann y. LYSINE PO Take 50 mg by mouth Daily. L-Lysine 50 mg daily Magnesium Citrate 100 MG TABS Take 1 tablet by mouth Daily. methotrexate 2.5 mg tablet Take 10 mg by mouth Once a week. MYRBETRIQ 50 MG ER tablet Take 50 mg by mouth Daily. NALTREXONE HCL PO Take 5 mg by mouth Daily. Nutritional Supplements (ESTROVEN PO) Take 1 tablet by mouth Daily. Probiotic Product (ALIGN PO) Take 1 tablet by mouth Daily. raNITIdine (ZANTAC) 150 mg tablet Take 150 mg by mouth 2 times daily. talc (ZEASORB) powder Apply topically as needed for Skin Care. trospium 20 MG tablet Take 20 mg by mouth 2 times daily. 1 UNABLE TO FIND as needed (As needed for leg cramps). Med Name: TheraWorx Foam [place] No current facility-administered medications for this visit. ALLERGIES: Allergies Allergen Reactions Tramadol Nausea Only, Other (See Comments) and Anxiety Insomnia, "alternating sweating and cold spells, a week of withdrawal symptoms" Codeine Nausea And Vomiting and Other (See Comments) Dizziness Diclofenac Diarrhea, Nausea Only, Other (See Comments) and Headache Headache, Acid reflux, Stomach Cramping, Bloating Diltiazem Swelling Ankle Isosorbide Mononitrate Nausea Only and Other (See Comments) Headache, Dizziness Misoprostol Diarrhea, Nausea Only and Other (See Comments) Headache, Acid reflux, Stomach Cramping, Bloating Valdecoxib Nausea Only and Other (See Comments) Dizziness Latex Added based on information entered during case entry, please review and add reactions, ty pe, and severity as needed Adhesive & Tape Itching and Rash Citalopram Nausea Only Duloxetine Other (See Comments) Hot flashes Escitalopram Nausea Only Esomeprazole Nausea Only Gabapentin Nausea Only and Nausea And Vomiting Hydromorphone Nausea Only Isosorbide Dinitrate Other (See Comments) Dizziness, headache Morphine Nausea And Vomiting Morphine Sulfate Nausea Only Oxycodone Nausea Only and Nausea And Vomiting Pregabalin Swelling Ankles Solifenacin Other (See Comments) Reaction: Choking REVIEW OF SYSTEMS: GENERALLY: No fever, chills, no night sweats, no fatigue, no weight loss, no weight gain. EYES: No vision changes. EARS, NOSE, AND THROAT: No hearing loss, no ear pain, no nosebleeds, no toothache, no gum p roblems, no significant snoring or sleep apnea, no seasonal allergies, no difficulty swallow ing, no hoarseness. NEUROMUSCULAR: Please see the review of systems discussed above in the history of present illness. In addition, the patient has no dizziness, no blackouts, no headaches. PSYCHIATRIC: No depression, no difficulty sleeping, no anxiety, no memory loss. CARDIOVASCULAR: No chest pain, no palpitations, no swollen ankles. PULMONARY: No shortness of breath, no cough. GASTROINTESTINAL: No poor appetite, no diarrhea, no nausea or vomiting, no bowel incontine nce, no hemorrhoids, no constipation, no abdominal pain. GENITOURINARY: No urinary difficulty and no incontinence. SKIN: No rashes. HEMATOLOGIC/LYMPHATIC: No enlarged lymph nodes or swollen glands. ENDOCRINE: No diabetes, no thyroid disease, no osteopenia or osteoporosis, no breast drain age. RHEUMATOLOGIC: No osteoarthritis, no rheumatoid arthritis. PHYSICAL EXAMINATION: Blood pressure 118/64, pulse 78, height 1.676 m (5' 6"), weight 79.4 kg (175 lb), not curre ntly . Body mass index is 28.25 kg/m. GENERAL: The patient is well developed and well nourished. She does not appear uncomfortab le when seated. HEENT: Normocephalic and atraumatic. Normal sclerae without icterus. NECK (ANTERIOR): There is no apparent cervical lymphadenopathy or thyromegaly. PULMONARY: The patient is in no acute respiratory distress with unlabored respirations. CARDIOVASCULAR: Regular rate and rhythm. There is not lower extremity edema. ABDOMEN: Non-distended. SKIN: Limited skin exam shows no significant rashes or lesions. NEUROLOGIC: The patient is awake, alert, and oriented. She follows simple and complex commands. Her speech is fluent. She comprehends speech well. She has no apparent deficits with short or termite treater memory. The cranial nerves appear grossly intact. Sensory exam does not show diminished sensation to light touch in the bilateral lower extre mities. REFLEX: RIGHT LEFT PATELLAR 2+ 2+ ACHILLES 2+ 2+ MUSCULOSKELETAL : MOTOR EXAM: (5 IS NORMAL) * Indicates pain limited MUSCLE/ MOVEMENT: RIGHT LEFT Hip Flexion 5 5 Hip Extension 5 4* Knee Flexion 5 4* Knee Extension 5 4* Extensor Hallicus Longus 5 4+ Ankle Dorsiflexion 5 5 Plantarflexion 5 5 Straight leg raise and slump-sit are negative. Randell's maneuver and impingement testing were negative for any groin pain. There was no tenderness to palpation over the greater trochanters or sacral sulci. The patient localized the majority of the pain to the L2-L3 and L3-L4 region. Lumbar facet loading was POSITIVE , R>L. The patient was able to heel and toe walk without difficulty. There was no redness, effusi on, warmth or joint line tenderness in the knees or ankles. RADIOGRAPHIC REVIEW: The patient's imaging was reviewed in detail with the patient today during the visit. Lumbar MRI from 07/19/2016 shows multiple disc bulges, the disc bulge at L4/L5 is off the ri ght causing severe right L4/L5 foraminal stenosis, she has as disc bulge at L5/S1 off to the left. ASSESSMENT: 1. Lumbar radiculopathy Ambulatory referral to Neurosurgery [place] [facility] Lumbar Transforaminal 2. Lumbar foraminal stenosis Ambulatory referral to Neurosurgery [place] Lumbar Transforaminal 3. Fibromyalgia Ambulatory referral to Neurosurgery [place] Lumbar Transforaminal 4. DEGENERATIVE DISC DISEASE, LUMBAR SPINE Ambulatory referral to Neurosurgery [place] Lumbar Transforaminal 5. S/P lumbar fusion Ambulatory referral to Neurosurgery [place] Lumbar Transforaminal 6. Scoliosis of lumbar spine, unspecified scoliosis type PLAN: 1)Today I have discussed my clinical impression with Ashly Santiago. Shared decision roscoe cruz between Ashly Santiago and I was used during today's encounter. We discussed the patient 's differential diagnosis, description of symptoms, physical exam, imaging and treatment dwaine n that suggest diagnosis at this time. 2) I counseled patient on treatment options which included conservative self management usi anthony OTC NSAIDs/Ice and heat packs, physical therapy, prescription medications, epidural stero id injection, as well as possible surgical intervention. 3) Imaging: As descibed above in radiology review. Lumbar MRI was ordered to assess lumbar spine for herniation, disc pathology, and/or nerve root impingement that may be contributing to patient's symptoms. 4) The patient has had significant conservative care including medications (NSAIDS and narc otics), PT (multiple sessions over the years) and healthcare associate. Unfortunately Ashly Santiago continues to have significant discomfort. It appears to me that the pain is primaril y coming from L2-L3 and L3-L4 region. I did feel that Ashly Santiago would be a good candidate for interventional procedures and I offered a bilateral L3-L4 TFESI to be done. Referral to Dr. Pereira for further evaluation as requested by patient. 5) Patient will follow up in 3 weeks post injection or as needed to discuss any imaging and /or progress with today's treatment plan. 6) If current treatment plan is insufficient for symptom relief we could consider repeat in jections as the next possible option. I spent 45 minutes in visit with Ashly Santiago today with the majority of time spent coun selling the patient on her diagnosis, options for her care, and coordinating her care. ELECTRONICALLY SIGNED BY: Dennys Pineda PA-C, 05/06/2019 3:53 PM documented in this enc ounter Plan of Treatment +--------+ + + + + | Date | Type | Specialty | Care Team | Description | +--------+ + + + + | 05/19/ | Hospital | Radiology | Dennys Pineda PA-C | | | 2019 | Encounter | | [address] | | | | | | [address] [place] | | | | | | [place] [address] | | | | | | [phone] | | | | | | | | | | | | Security Solutions Architect, [place] | | +--------+ + + + + + +---------+--------+ + + | Name | Type | Priori | Associated Diagnoses | Order Schedule | | | | ty | | | + +---------+--------+ + + | [facility] Lumbar | Imaging | Routin | Lumbar | Expected: | | Transforaminal | | e | radiculopathy | 05/05/2019, Expires: | | | | | Lumbar foraminal | 05/05/2020 | | | | | stenosis | | | | | | Fibromyalgia | | | | | | DEGENERATIVE DISC | | | | | | DISEASE, LUMBAR | | | | | | SPINE S/P lumbar | | | | | | fusion | | + +---------+--------+ + + + + +--------+ + + | Name | Type | Priori | Associated Diagnoses | Order Schedule | | | | ty | | | + + +--------+ + + | Ambulatory referral | Outpatient | Routin | Lumbar | Ordered: 05/05/2019 | | to Neurosurgery | Referral | e | radiculopathy | | | | | | Lumbar foraminal | | | | | | stenosis | | | | | | Fibromyalgia | | | | | | DEGENERATIVE DISC | | | | | | DISEASE, LUMBAR | | | | | | SPINE S/P lumbar | | | | | | fusion | | + + +--------+ + + documented as of this encounter Visit Diagnoses + + | Diagnosis | + + | Lumbar radiculopathy - Primary Thoracic or lumbosacral neuritis or radiculitis, | | unspecified | + + | Lumbar foraminal stenosis Spinal stenosis, lumbar region, without neurogenic | | claudication | + + | Fibromyalgia Mylagia and myositis, unspecified | + + | DEGENERATIVE DISC DISEASE, LUMBAR SPINE Degeneration of lumbar or lumbosacral | | intervertebral disc | + + | S/P lumbar fusion Arthrodesis status | + + | Scoliosis of lumbar spine, unspecified scoliosis type | + + documented in this encounter
--- OUTSIDE RECORDS SUMMARY | ~2019-05-17 | XMS | Encounter Summary ---
Demographics + + + | Address | [address] | | | [place] [address] | + + + | Home Phone | | + + + | Preferred Language | Unknown | + + + | Marital Status | | + + + | Anabaptist Affiliation | 1077 | + + + | Race | Unknown | + + + | Ethnic Group | Unknown | + + + Author + + + | Author | [facility] | | | and Azana | + + + | Organization | [facility] | | [...] [place], [place] | | | | | [address] | | + + + + + | Helena Doherty | ECON | [place], | | | | | [place] [address] | | + + + + + Care Team Providers + +------+ + | Care Tar Chaser Name | Role | Phone | + +------+ + | Thee Boss MD | PCP | | + +------+ + Reason for Visit + + + | Reason | Comments | + + + | Follow-up | 6 week, patient states that her nose is doing better and she has | | | no pain | + + + Encounter Details +--------+---------+ + + + | Date | Type | Department | Care Team | Description | +--------+---------+ + + + | 10/31/ | Office | [facility] | Brendan Orlando MD | Epistaxis (Primary | | 2012 | Visit | OTOLARYNGOLOGY [address] | [address] | Dx) | | | | [address] | [address] [place], | | | | | [place] | [place] [address] | | | | | [address] | [phone] | | | | | [phone] | | | +--------+---------+ + + + [...] + + + + | Weight | 88.9 kg (196 lb) | 10/31/2012 10:05 AM | | | | | PDT | | + + + + + | Height | 165.1 cm (5' 5") | 10/31/2012 10:05 AM | | | | | PDT | | + + + + + | Body Mass Index | 32.62 | 10/31/2012 10:05 AM | | | | | PDT | | + + + + + documented in this encounter Progress Notes Brendan Orlando MD - 10/31/2012 10:49 AM PDTSee dictation #[id number] signed by Maikol Orlando MD at 10/31/2012 10:53 AM Brendan Kennedy MD - 10/31/2012 12:00 AM PDT ENT AND AUDIOLOGY [address] [place] [address] FAX: [phone] OFFICE VISIT The patient has a long history of epistaxis. She was seen 6 weeks ago and cauterization of the septal area was carried out. Since that time she has had no major bleeds but she contin ues to have in the morning crusting that comes out of her nose and often has a little bit o f blood with it. The patient comes in wondering what other things she needs to do to keep t he nose quiet. No other ENT complaints. Examination shows indeed there is some crusting on both sides of the septum. There is a bit of dried old blood that mostly some crusting and very dry appearing. In discussion with tien sanabria patient, she indicates that she put some ointment up this morning, but certainly no evide nce that appointment got up to the area that needed to be treated. She uses a Q-tip but it would appear that she just barely gets it inside the opening of her nose. The patient has n o mass or lesions up in the nasal passages, no obstruction. The patient's nose was then adri ated with some topical antibiotic. This was applied to the septum on both sides and once co mpleted, the depth and the area of treatment was shown to the patient so that she can apply the A and D ointment on a 3 times a day basis. IMPRESSION: NASAL EPISTAXIS. PLAN: The patient will use A and D ointment 3 times a day and again taught how to do this a nd see if this will help her heal up. If she continues to have bleeding and ongoing problem s, she will recheck with ENT. Brendan Orlando MD / JOB #: [id number] signed by Brendan Orlando MD at 11/04/2012 9:04 AM PDTdocumente d in this encounter Plan of Treatment +--------+ [...] [place] | | | | | | [place] [id number] | | | | | | [phone] | | | | | | | | | | | | [employer]ing [employer], [facility] | | +--------+ + + + + documented as of this encounter Visit Diagnoses + + | Diagnosis | + + | Epistaxis - Primary | + + documented in this encounter
--- OUTSIDE RECORDS SUMMARY | ~2019-05-17 | XMS | Encounter Summary ---
Demographics + + + | Address | [address] | | | [place] [address] | + + + | Home Phone | | + + + | Preferred Language | Unknown | + + + | Marital Status | | + + + | Mandaen Affiliation | Unknown | + + + | Race | White | + + + | Ethnic Group | Not or | + + + Author + + + | Author | [facility] | + + + | Organization | [facility] | + + + | Address | Unknown | + + + | Phone | Unavailable | + + + Support + + +---------+ + | Name | Relationship | Address | Phone | + + +---------+ + | Alon Santiago | ECON | Unknown | | + + +---------+ + Care Team Providers + +------+ + | Care Residential Property Manager Name | Role | Phone | + +------+ + | Nathan Luevano DO | PCP | | + +------+ + Encounter Details +--------+ + + + + | Date | Type | Department | Care Team | Description | +--------+ + + + + | 04/09/ | MyChart | [facility] | Agusto Pereira MD | Upcoming Tests and | | 2019 | Encounter | Neurosurgery at [address] | [address] | Procedures | | | | [address] | [address] | | | | | [address] | [place] [address] | | | | | [place], [place] | [phone] | | | | | [address] | | | | | | [phone] | | | +--------+ + + + [...]
--- OUTSIDE RECORDS SUMMARY | ~2019-05-17 | XMS | Encounter Summary ---
Demographics + + + | Address | [address] | | | [place] [address] | + + + | Home Phone | | + + + | Preferred Language | Unknown | + + + | Marital Status | | + + + | Mormon Affiliation | 1077 | + + + | Race | Unknown | + + + | Ethnic Group | Unknown | + + + Author + + + | Author | [facility] | | | and Azana | + + + | Organization | [facility] | | | and Azana [...] [place], [place] | | | | | [address] | | + + + + + | Helena Doherty | ECON | [place], | | | | | [place] [address] | | + + + + + Care Team Providers + +------+ + | Care Lotus Notes Administrator Name | Role | Phone | + +------+ + | Nathan Luevano DO | PCP | | + +------+ + Reason for Visit + + + | Reason | Comments | + + + | Referral | PT referral | + + + Encounter Details +--------+ + + + + | Date | Type | Department | Care Team | Description | +--------+ + + + + | 03/20/ | Telephone | [facility] | Agusto Pereira MD | Referral (PT | | 2017 | | NEUROSURGERY [address] | [address] | referral) | | | | [facility] [address] | [place] [address] | | | | | [place] | [phone] | | | | | [address] | | | | | | [phone] | | | +--------+ + + + [...] [place] | | | | | | [place] [address] | | | | | | [phone] | | | | | | | | | | | | Pension Fund ManagerNaomi | | +--------+ + + + + documented as of this encounter Visit Diagnoses Not on filedocumented in this encounter"
--- OUTSIDE RECORDS SUMMARY | ~2019-05-17 | XMS | Encounter Summary ---
Demographics + + + | Address | [address] | | | [place] [address] | + + + | Home Phone | | + + + | Preferred Language | Unknown | + + + | Marital Status | | + + + | Methodist Affiliation | Unknown | + + + | Race | White | + + + | Ethnic Group | Not or | + + + Author + + + | Author | [facility] | + + + | Organization | [facility] | + + + | Address | Unknown | + + + | Phone | Unavailable | + + + Support + + +---------+ + | Name | Relationship | Address | Phone | + + +---------+ + | Alon Santiago | ECON | Unknown | | + + +---------+ + Care Team Providers + +------+ + | Care Endodontics Dentist Name | Role | Phone | + +------+ + | Thee Boss MD | PCP | | + +------+ + Encounter Details +--------+ + + + + | Date | Type | Department | Care Team | Description | +--------+ + + + + | 04/07/ | Hospital | Diagnostic | | | | 2012 | Encounter | [facility] | | | | | | [address] | | | | | | Amara Chatman Mailcode: | | | | | | [address]ician[address] | | | | | | [place], | | | | | | [place] [address] | | | | | | [phone] | | | +--------+ + + + [...] + +--------+ + + + | X-RAY ANKLE 2 VIEWS | Routin | 04/07/2013 | Left ankle | Results for this | | LEFT | e | 4:29 PM | swelling | procedure are in the | | | | PDT | | results section. | + +--------+ + + + | RADIOLOGY | | 04/07/2013 | | Results for this | | | | 12:00 AM | | procedure are in the | | | | PDT | | results section. | + +--------+ + + + documented in this encounter Results X-RAY ANKLE 2 VIEWS LEFT (04/07/2013 4:29 PM PDT) + + + + + + | Component | Value | Ref Range | Performed | Pathologist | | | | | At | Signature | + + + + + + | ANKLE 2 | STUDY: ANKLE 2 VIEWS | | | | | VIEWS LEFT | LEFT 04/07/13 16:29:00 | | | | | | COMPARISON: None. | | | | | | HISTORY: Pain and | | | | | | swelling in a patient | | | | | | with rheumatoid | | | | | | arthritis. FINDINGS: No | | | | | | fracture or destructive | | | | | | osseous lesion is | | | | | | observed. No erosion | | | | | | is observed. The bones | | | | | | are mildly osteopenic. | | | | | | The ankle mortise is | | | | | | symmetric. There is | | | | | | nosyndesmotic widening. | | | | | | Alignment and joint | | | | | | spaces of the hindfoot | | | | | | are normal.There is mild | | | | | | plantar spurring of the | | | | | | calcaneus. Mild, | | | | | | diffuse soft | | | | | | tissueswelling | | | | | | throughout the lower | | | | | | extremity is noted. | | | | | | IMPRESSION: Mild diffuse | | | | | | lower extremity edema | | | | | | without acute osseous | | | | | | abnormality. Mild | | | | | | osteopenia. Attending | | | | | | Radiologists: ANGELES | | | | | | JUANITO MDAuthor: | | | | | | ANAI EDWARDS MD I | | | | | | have personally viewed | | | | | | this procedure/exam, | | | | | | reviewed this report, | | | | | | and madechanges to it | | | | | | where appropriate. | | | | | | Final/Electronically | | | | | | signed / ANGELES | | | | | | JUANITO 04/08/2013 9:03 | | | | | | AM | | | | + + + + + + + + | Specimen | + + | | + + + +---------+ + + | Performing | Address | City[facility] | Phone Number | | Organization | | | | + +---------+ + + | [facility] DEPARTMENT OF | | | | | RADIOLOGY | | | | + +---------+ + + RADIOLOGY (04/07/2013 12:00 AM PDT) + + + | Narrative | Performed At | + + + | | | | | | + + + + + | Procedure Note | + + | Armando Reinoso - 09/08/2013 10:52 AM PDT | + + documented in this encounter Visit Diagnoses + + | Diagnosis | + + | Left ankle swelling Effusion of ankle and foot joint | + + documented in this encounter"
--- OUTSIDE RECORDS SUMMARY | ~2019-05-17 | XMS | Encounter Summary ---
Demographics + + + | Address | [address] | | | [place] [address] | + + + | Home Phone | | + + + | Preferred Language | Unknown | + + + | Marital Status | | + + + | Baptism Affiliation | 1077 | + + + | Race | Unknown | + + + | Ethnic Group | Unknown | + + + Author + + + | Author | [facility] | | | and [place]ana | + + + | Organization | [facility] | | | and Azana | [...] [place], [place] | | | | | [address] | | + + + + + | Helena Doherty | ECON | [place], | | | | | [place] [address] | | + + + + + Care Team Providers + +------+ + | Care Sweeper Operator Highways Name | Role | Phone | + +------+ + | Nathan Luevano DO | PCP | | + +------+ + Reason for Visit + + + | Reason | Comments | + + + | Back Pain | | + + + Evaluate & Treat (Routine) +--------+ + + + + + | Status | Reason | Specialty | Diagnoses / | Referred By | Referred To | | | | | Procedures | Contact | Contact | +--------+ + + + + + | Closed | Specialty | Neurosurgery | Diagnoses | | Agusto Pereira | | | Services | | Lumbar | Fay | MD [address] | | | Required | | foraminal | [place], | [address] | | | | | stenosis | PA-C [address] | [place], [place] | | | | | Facet | [address] | [address] | | | | | arthritis of | [place], [place] | Phone: | | | | | lumbar | [address] | [phone] | | | | | region | Phone: | Fax: | | | | | Lumbar | [phone] | [phone] | | | | | radiculopath | Fax: | | | | | | y | [phone] | | | | | | Degenerative | | | | | | | disc | | | | | | | disease, | | | | | | | lumbar | | | +--------+ + + + + + Encounter Details +--------+---------+ + + + | Date | Type | Department | Care Team | Description | +--------+---------+ + + + | 10/26/ | Office | [facility] | Agusto Pereira MD | Scoliosis of lumbar | | 2017 | Visit | NEUROSURGERY [address] | [address] | spine, unspecified | | | | [address] | [place] [address] | scoliosis type | | | | [place] | [phone] | (Primary Dx); | | | | [address] | | DEGENERATIVE DISC | | | | [phone] | | DISEASE, LUMBAR | | | | | | SPINE; 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; | | | | | | Facet arthritis of | | | | | | lumbar region ([facility]); | | | | | | Chronic low back | | | | | | pain with sciatica, | | | | | | sciatica laterality | | | | | | unspecified, | | | | | | unspecified back | | | | | | pain laterality; | | | | | | Fibromyalgia | +--------+---------+ + + + Social History [...] + + + | Blood Pressure | 136/70 | 10/26/2016 3:57 PM | | | | | PDT | | + + + + + | Pulse | 68 | 10/26/2016 3:57 PM | | | | | PDT [...] + + + + | Weight | 93.4 kg (206 lb) | 10/26/2016 3:57 PM | | | | | PDT | | + + + + + | Height | 165.1 cm (5' 5") | 10/26/2016 3:57 PM | | | | | PDT | | + + + + + | Body Mass Index | 34.28 | 10/26/2016 3:57 PM | | | | | PDT | | + + + + + documented in this encounter Progress Notes Agusto Pereira MD - 10/26/2016 4:14 PM PDTFormatting of this note might be different from t he original. Agusto Pereira MD [address] [facility] [place] [address] [place], [place] [id number] FAX: NEUROSURGERY HISTORY AND PHYSICAL EXAMINATION CHIEF COMPLAINT: Chief Complaint Patient presents with Back Pain HISTORY OF PRESENT ILLNESS: The patient is a 76 y.o. female with the complaint of back and bilateral leg pain symptoms that began several months months ago. The patient states no def inite known cause for the back and leg pain. The symptoms have been rapidly worsening. She rates the pain as severe. The symptoms are continuous . She describes the pain as sharp, numbing, tingling, shooting, dull and throbbing. The patient describes leg symptoms that occur on both sides equally. The leg symptoms acco unt for 50% of her symptoms. The leg symptoms are intermittent, and the symptoms travel fro m the back to the lateral thigh. The patient also describes the loss of the ability to walk distances without sitting, numbness of the legs and weakness of the legs. The patient does not report any change in bowel or bladder function recently. Her symptoms improve with rest. Her symptoms worsen with standing, sitting, walking, running and kneeling. She has tried PT, Massage and Injections. The patient is currently taking nerve medication . These measures Nerve medication is currently helping. Patient recently started physical t herapy and it's to soon to see any progress. PAST MEDICAL HISTORY: Past Medical History Diagnosis Date Chronic pain IMPAIRED VISION Leg cramps Cervical radiculopathy GERD (gastroesophageal reflux disease) Cough Lipoma Diverticulosis Abdominal pain Precordial pain Hypertension Depression Incontinence of urine Displacement of lumbar intervertebral disc Hypercholesterolemia Sacroiliitis (HCC) 09/04/2012 Osteoarthrosis Rheumatoid arthritis (HCC) Intervertebral disc disorder with radiculopathy of lumbar region Other idiopathic scoliosis, lumbar region Fibromyalgia Lumbar foraminal stenosis 08/30/2016 PAST SURGICAL HISTORY: Past Surgical History Procedure Laterality Date Cholecystectomy, laparoscopic 07/11/2011 Dr. Marquez Rectocele repair 2006 Dr. Reid Bladder suspension 2006 with Rectocele repair; Dr. Reid and Dr. Watkins Neuroma surgery Left 1998 Heel spur surgery Right 1997 Dr. Berrios Retinal detachment surgery 1997 Dr. Andrade Cataract removal Bilateral 1996 [facility] Hysterectomy, total abdominal 1972 [facility] Appendectomy 1959 [facility] Tonsillectomy 1944 [place], [place] Colonoscopy 2003 [facility] Bunionectomy 04/10/2007 [facility] Bunion; Dr. Db Berrios Perineal skin bridge 02/2009 Electrocardiogram 05/19/2009 Dr. Boss Egd and colonoscopy 07/06/2009 [facility] Dr. Jc Electrocardiogram 08/12/2009 [facility]. Radha [facility] [facility]; Dr. Marquez Finger trigger release Right 05/28/2014 Middle finger; Dr. Donta Agarwal Rotator cuff repair Right 04/20/2015 Dr. Jesus Nasal septum surgery 06/06/2016 Dr. Lindsey; [facility] CURRENT MEDICATIONS: Current Outpatient Prescriptions Medication Sig Dispense Refill BIOTIN 5000 PO Take 1 tablet by mouth Daily. busPIRone (BUSPAR) 7.5 MG tablet Take 7.5 mg by mouth 2 times daily. Cholecalciferol (VITAMIN D-3) 2000 units CAPS Take 2,000 Units by mouth Daily. diclofenac (VOLTAREN) 1% GEL Apply 1 g topically 2 times daily. diclofenac (VOLTAREN) 75 mg EC tablet Take 75 mg by mouth 2 times daily. docusate sodium (COLACE) 100 mg capsule Take 100 mg by mouth Daily as needed for Consti pation. fish oil 1,000 mg capsule Take 1,000 mg by mouth Daily. folic acid 1 mg tablet Take 1 mg by mouth Daily. gabapentin (NEURONTIN) 100 mg capsule Take 300 mg by mouth 3 times daily. 0 hydroxychloroquine (PLAQUENIL) 200 mg tablet Take 200 mg by mouth Daily. losartan-hydrochlorothiazide (HYZAAR) 50-12.5 MG per tablet Take 1 tablet by mouth Lee Ann y. Lysine 500 MG CAPS Take 1 capsule by mouth Daily. methotrexate 2.5 mg tablet Take 10 mg by mouth Once a week. Multiple Vitamins-Minerals (PRESERVISION AREDS 2) CAPS Take 1 capsule by mouth 2 times daily. NALTREXONE HCL PO Take 4.5 mg by mouth Daily. Nutritional Supplements (ESTROVEN PO) Take 1 tablet by mouth Daily. ranitidine (ZANTAC) 150 mg tablet Take 150 mg by mouth Daily as needed for Heartburn. No current facility-administered medications for this visit. ALLERGIES: Allergies Allergen Reactions Citalopram Nausea Only Citalopram [...] Tape Itching and Rash Pregabalin Swelling Ankles SOCIAL HISTORY: The patient reports that she has never smoked. She has never used smokeless tobacco. She r eports that she drinks alcohol. She reports that she does not use illicit drugs. FAMILY HISTORY: Family History Problem Relation [...] Aunt REVIEW OF SYSTEMS: GENERALLY: No fever, no night sweats, no anemia, no fatigue, no recent profound weight ch anges. EYES: + eye problems, + use of corrective lenses, no eye injury, no double vision, no blin dness. EARS, NOSE, AND THROAT: No changes in [...] illness. In addition, the patient has numbness of arms and legs, muscle aching, change in walk, pain in neck and back, confusion. PSYCHIATRIC: + depression, + sleep disorders, + anxiety, no bipolar disorder, no psychotic episodes. CARDIOVASCULAR: No heart attacks, no heart murmur, no heart fluttering, no chest pain, + a nkle swelling. LUNG DISEASE: No shortness of breath, no cough, no tuberculosis, no bloody cough, no asth ma, no emphysema/COPD. GASTROINTESTINAL: No bowel disease, no nausea or vomiting, no rectal bleeding, no constipa tion, no stool incontinence, no liver disease, no gallbladder disease, no abdominal pain, no ulcers. KIDNEY DISEASE: + urinary frequency, no painful or difficult urination, + incontinence. ENDOCRINE: No diabetes, no thyroid disease, no osteopenia or osteoporosis, no breast drain age. SKIN: No breast lumps, no skin changes, no rashes, no itches. HEMATOLOGIC/LYMPHATIC: No enlarged lymph nodes, no easy or unusual bleeding, no personal h istory of cancer. RHEUMATOLOGIC: No joint arthritis, no rheumatoid arthritis. PHYSICAL EXAMINATION: Blood pressure 136/70, pulse 68, height 1.651 m (5' 5"), weight 93.441 kg (206 lb), not cur rently . Body mass index is 34.28 kg/(m^2). GENERAL: Ashly Santiago is in no acute distress with unlabored respirations. The alisha ent does not appear uncomfortable throughout the exam today. HEENT: Head: Normocephalic/atraumatic with no areas of recent trauma. Eyes: Normal sclerae without icterus. Ears: No drainage or tenderness. Nasopharnyx: Clear without drainage. Oropharnyx: Clear without erythema. NECK (ANTERIOR): Supple and without palpable masses. CHEST: Clear to ausculation without crackles or wheeze. HEART: Regular rate and rhythm without murmurs. ABDOMEN: Soft, non-tender, non-distended, and without palpable masses. The patient is obese . SPINE: There is tenderness midline tenderness of the cervical and thoracic spine. The lumbar spine shows there is tenderness in the midline of the L4, L5, S1 levels. To pal pation, there is no significant myofascial tenderness. There is significant pain to provacative testing of the SI joint. There is scoliosis noted. EXTREMITIES: No cyanosis, clubbing, or edema. Distal pulses are palpable. NEUROLOGICAL EXAM: MENTAL STATUS: The patient is awake, alert, and oriented. She follows simple and complex commands. Her speech is fluent, she comprehends speech well, and she repeats well. She has no apparent deficits with short or cleaner operator memory. CRANIAL NERVES: II: Acuity is intact. Mane are full to confrontation. III, IV, : The pupils are reactive. Extraocular movements are intact. No ptosis is note d. V: Facial sensation is intact and symmetric. VII: Facial movements are symmetric. VIII: Hearing is intact bilaterally. IX, X: The uvula and palate move appropriately. XI: Shrug is equal bilaterally. XII: Tongue protrusion is midline. MOTOR EXAM: (5 IS NORMAL) * Indicates pain limited MUSCLE/ MOVEMENT: RIGHT LEFT Deltoids 5 5 Biceps 5 5 Triceps 5 5 Wrist Flexion 5 5 Wrist Extension 5 5 Median Intrinsics 5 5 Ulnar Intrinsics 5 5 Manager Primary Strength 5 5 Hip Flexion 5 5 Hip Extension 5 5 Knee Flexion 5 5 Knee Extension 5 5 Dorsiflexion 5 5 Extensor Hallicus Longus 5 5 Plantarflexion 5 5 SENSORY EXAM: Sensory exam shows no diminished sensation to light touch or pain throughout the upper and lower extremities. REFLEXES: (2 OR 2+ IS NORMAL) REFLEX: RIGHT LEFT BICEPS 2+ 2+ BRACHIORADIALIS 2+ 2+ TRICEPS 2+ 2+ PATELLAR 2+ 2+ ACHILLES 2+ 2+ DORANTES'S ABSENT ABSENT PLANTAR DOWNGOING DOWNGOING GAIT: Gait is steady. PERIPHERAL NERVE/MISC: Tinel is negative at the wrists and elbows bilaterally. Phalen is negative. Straight leg raise is negative bilaterally. Randell's test of the hips is negative bilaterally. TEST AND RADIOGRAPHIC REVIEW: The patient's imaging was reviewed in detail with the patient today during the visit. The MRI from 2017 shows L1-S1 DDD with the most prominent findings at L4-5 and L5-S1 where she h as significant facet and foraminal narrowing. At L4-5 this is worst on the right and at L5- S1 this is worst on the left. Lumbar x-rays show scoliosis with significant spinal deformity. ASSESSMENT: NEUROSURGICAL DIAGNOSES: Encounter Diagnoses Name Primary? 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, sciatica laterality unspecified, unspecified back pain laterality Fibromyalgia GENERAL DIAGNOSES: Past Medical History Diagnosis Date Chronic pain IMPAIRED VISION Leg cramps Cervical radiculopathy GERD (gastroesophageal reflux disease) Cough Lipoma Diverticulosis Abdominal pain Precordial pain Hypertension Depression Incontinence of urine Displacement of lumbar intervertebral disc Hypercholesterolemia Sacroiliitis (HCC) 09/04/2012 Osteoarthrosis Rheumatoid arthritis (HCC) Intervertebral disc disorder with radiculopathy of lumbar region Other idiopathic scoliosis, lumbar region Fibromyalgia Lumbar foraminal stenosis 08/30/2016 PLAN: Ashly Santiago presented today, and we went over in great detail her neurologic proble ms. The patient has radicular symptoms and deformity. The patient has failed conservative care after many years. I had a lengthy discussion with the patient about her options for care including surgical a nd non-surgical options. In discussing the surgical options, we discussed in detail the patient's options for a comb ined LAIF at L4-5 and a TLIF at L5-S1 with posterior instrumentation using anterior and post erior approaches. The patient understands that in most instances the recovery from surgery can be lengthy and sometimes difficult. We discussed the risks, alternatives, and benefits to surgical intervention with Ms. Santiago in clinic. These risks included but were not limited to , stroke, heart attack, numbn ess, weakness, paralysis, failure of fusion, failure of hardware, subsidence, adjacent segme nt degeneration, cerebrospinal fluid leak, bleeding, infection, injury to surrounding tissue s and organs, injury from positioning, injury to the nerves, difficulty with breathing, diff iculty with swallowing, difficulty with voice change, and need for additional surgery. Surgical options were discussed and the technique to be employed was described in detail to her. All her questions were answered. We discussed that the goal of the surgery is to prevent progression of her disease, but it is not considered a cure. We also discussed that although some patients may obtain 100% sym ptom relief, it is realistic to anticipate that some symptoms will continue postoperatively despite a successful surgery. We also discussed that there is no guarantee that surgery will provide improvement in her c ondition, and indeed may even worsen the symptoms. We also discussed that in the course of the procedure the operative plan may be altered to include more, less, or different levels d epending upon findings in order to provide her with the best possible outcome. I am prescribing a brace before surgery to improve her stability now to support her weak mu scles and to reduce pain by restricting mobility. For multiple (more than 1 level) fusions, I am also prescribing a bone growth stimulator po stoperatively. This is to improve the probability and rate of fusion. The patient would like to weigh their options and contact us back. ELECTRONICALLY SIGNED BY: Agusto Pereira MD, 10/26/2016 17:15 Sheree Carlson assisted me in the vp cardiovascular of this note in my presence today. documented in this encou nter Plan of Treatment +--------+ + + + + | Date | Type | Specialty | Care Team | Description | +--------+ + + + + | 05/19/ | Hospital | Radiology | Dennys Pineda PA-C | | | 2018 | Encounter | | [address] | | | | | | [address] | | | | | | [place] [address] | | | | | | [phone] | | | | | | | | | | | | Chimney MechanicNaomi | | +--------+ + + + + documented as of this encounter Visit Diagnoses + + | Diagnosis | + + | Scoliosis of lumbar spine, unspecified scoliosis type - Primary | + + | DEGENERATIVE DISC DISEASE, LUMBAR SPINE Degeneration of lumbar or lumbosacral | | intervertebral disc | + + | Lumbar foraminal stenosis Spinal stenosis, lumbar region, without neurogenic | | claudication | + + | Facet arthritis of lumbar region Lumbosacral spondylosis without myelopathy | + + | Chronic low back pain with sciatica, sciatica laterality unspecified, unspecified back | | pain laterality | + + | Fibromyalgia Mylagia and myositis, unspecified | + + documented in this encounter
--- OUTSIDE RECORDS SUMMARY | ~2019-05-17 | XMS | Encounter Summary ---
Demographics + + + | Address | [address] | | | [place] [address] | + + + | Home Phone | | + + + | Preferred Language | Unknown | + + + | Marital Status | | + + + | Methodist Affiliation | 1077 | + + + | Race | Unknown | + + + | Ethnic Group | Unknown | + + + Author + + + | Author | [facility] | | | and [place] | + + + | Organization | [facility] | | | and Azana [...] [place], [place] | | | | | [address] | | + + + + + | Helena Doherty | ECON | [place], | | | | | [place] [address] | | + + + + + Care Team Providers + +------+ + | Care Power Switchboard Operator Name | Role | Phone | + +------+ + | Nathan Luevano DO | PCP | | + +------+ + Encounter Details +--------+ + + + + | Date | Type | Department | Care Team | Description | +--------+ + + + + | 09/25/ | Orders Only | [facility] [place] | Agusto Pereira MD | Back pain, | | 2017 | | NEUROSURGERY [address] | unspecified back | | | | [address] | [place] [address] | location, | | | | [place] | [phone] | unspecified back | | | | [address] | | pain laterality, | | | | [phone] | | unspecified | | | | | | chronicity (Primary | | | | | | Dx) | +--------+ + + + + Social [...] | | | | | | [place] [id number] | | | | | | [phone] | | | | | | | | | | | | Assistant Property ManagerNaomi | | +--------+ + + + + documented as of this encounter Results XR Lumbar Spine 4 [...] + + | [address] | [address] | [place], [place] | [phone] | | [facility] | | [address] | | | - IMAGING | | | | + + + + + documented in this encounter Visit Diagnoses + + | Diagnosis | + + | Back pain, unspecified back location, unspecified back pain laterality, unspecified | | chronicity - Primary | + + documented in this encounter"
--- OUTSIDE RECORDS SUMMARY | ~2019-05-17 | XMS | Encounter Summary ---
Demographics + + + | Address | [address] | | | [place] [address] | + + + | Home Phone | | + + + | Preferred Language | Unknown | + + + | Marital Status | | + + + | Pentecostalism Affiliation | 1077 | + + + | Race | Unknown | + + + | Ethnic Group | Unknown | + + + Author + + + | Author | [facility] | | | and [place] | + + + | Organization | [facility] | | | and [place]ana [...] [place], [place] | | | | | [address] | | + + + + + | Helena Doherty | ECON | [place], | | | | | [place] [address] | | + + + + + Care Team Providers + +------+ + | Care Securities Attorney Name | Role | Phone | + +------+ + | Nathan Luevano DO | PCP | | + +------+ + Encounter Details +--------+ + + + + | Date | Type | Department | Care Team | Description | +--------+ + + + + | 05/09/ | Episode | [facility] [place] | Camryn Martinez | | | 2016 | Changes | GASTROENTEROLOGY | ILIR Turner | | | | | [address] | | | | | | [address] [place] | | | | | | [address] | | | | | | [phone] | | | +--------+ + + + [...] | | | | | [place] [address] | | | | | | [phone] | | | | | | | | | | | | Direct Service Provider, Ws | | +--------+ + + + + documented as of this encounter Visit Diagnoses Not on filedocumented in this encounter"
--- OUTSIDE RECORDS SUMMARY | ~2019-05-17 | XMS | Encounter Summary ---
Demographics + + + | Address | [address] | | | [place] [address] | + + + | Home Phone | | + + + | Preferred Language | Unknown | + + + | Marital Status | | + + + | Nondenominational Affiliation | Unknown | + + + [...] Team Providers + +------+ + | Care International Marketing Coordinator Name | Role | Phone | + +------+ + | Thee Boss MD | PCP | | + +------+ + Encounter Details +--------+------+ + + + | Date | Type | Department | Care Team | Description | +--------+------+ + + + | 05/06/ | Lab | Laboratory, | | Joint pain | | 2012 | | Specimen Collection | | | | | | at [address] | | | | | | [address] | | | | | | Celina Chatman [place], | | | | | | [place] [address] | | | | | | [phone] | | | +--------+------+ + + + [...] CBC AND AUTO DIFF | Routin | 05/06/2013 | Joint pain | Results for this | | | e | 4:10 PM | | procedure are in the | | | | PST | | results section. | + +--------+ + + + | CBC, WITH | Routin | 05/06/2013 | Joint pain | Results for this | | DIFFERENTIAL | e | 4:10 PM | | procedure are in the | | | | PST | | results section. | + +--------+ + + + | COMPLETE METABOLIC | Routin | 05/06/2013 | Joint pain | Results for this | | SET | e | 4:10 PM | | procedure are in the | | (NA,K,CL,CO2,BUN,CRE | | PST | | results section. | | AT,GLUC,CA,AST,ALT,B | | | | | | MEDINA TOTAL,ALK | | | | | | PHOS,ALB,PROT TOTAL) | | | | | + +--------+ + + + | CYCLIC CITRUL | Routin | 05/06/2013 | Joint pain | Results for this | | PEPTIDE AB IGG, | e | 4:10 PM | | procedure are in the | | SERUM | | PST | | results section. | + +--------+ + + + | RHEUMATOID FACTOR, | Routin | 05/06/2013 | Joint pain | Results for this | | SERUM | e | 4:10 PM | | procedure are in the | | | | PST | | results section. | + +--------+ + + + | C-REACTIVE PROTEIN | Routin | 05/06/2013 | Joint pain | Results for this | | | e | 4:10 PM | | procedure are in the | | | | PST | | results section. | + +--------+ + + + | SEDIMENTATION RATE | Routin | 05/06/2013 | Joint pain | Results for this | | | e | 4:10 PM | | procedure are in the | | | | PST | | results section. | + +--------+ + + + documented in this encounter Results CBC AND AUTO DIFF (05/06/2013 4:10 PM PST) + + + + + + | Component | Value | Ref Range | Performed | Pathologist | | | | | At | Signature | + + + + + + | WHITE CELL | 6.88 | 4.40 - 11.00 | [facility] | | | COUNT | | K/cu mm | LABORATORY | | | | | | SERVICES, | | | | | | CORE | | + + + + + + | RED CELL | 3.68 (L) | 4.00 - 5.20 | [facility] | | | COUNT | | M/cu mm | LABORATORY | | | | | | SERVICES, | | | | | | CORE | | + + + + + + | HEMOGLOBIN | 11.3 (L) | 12.0 - 16.0 | [facility] | | | | | g/dL | LABORATORY | | | | | | SERVICES, | | | | | | CORE | | + + + + + + | HEMATOCRIT | 35.6 (L) | 36.0 - 46.0 % | [facility] | | | | | | LABORATORY | | | | | | SERVICES, | | | | | | CORE | | + + + + + + | MCV | 96.7 (H) | 80.0 - 96.0 fL | [facility] | | | | | | LABORATORY | | | | | | SERVICES, | | | | | | CORE | | + + + + + + | MCHC | 31.7 (L) | 33.0 - 35.5 | [facility] | [...] + + + + | PLATELET | 265 | 150 - 400 K/cu | [facility] | | | COUNT | | mm | LABORATORY | | | | | | SERVICES, | | | | | | CORE | | + + + + + + | MPV | 11.2 | 9.7 - 12.3 fL | [facility] [...] + + + + | NEUTROPHIL | 57.9 | 50.0 - 70.0 % | [facility] | | | % | | | LABORATORY | | | | | | SERVICES, | | | | | | CORE | | + + + + + + | LYMPHOCYTE | 25.9 | 18.0 - 42.0 % | [facility] | | | % | | | LABORATORY | | | | | | SERVICES, | | | | | | CORE | | + + + + + + | MONOCYTE % | 11.5 (H) | 3.5 - 9.0 % | [facility] | | | | | | LABORATORY | | | | | | SERVICES, | | | | | | CORE | | + + + + + + | EOS % | 3.2 (H) | 1.0 - 3.0 % | [facility] | | | | | | LABORATORY | | | | | | SERVICES, | | | | | | CORE | | + + + + + + | BASO % | 1.2 | 0.0 - 2.0 % | [facility] | | | | | | LABORATORY | | | | | | SERVICES, | | | | | | CORE | | + + + + + + | IG% | 0.3 | 0.0 - 0.6 % | [facility] | | | | | | LABORATORY | | | | | | SERVICES, | | | | | | CORE | | + + + + + + | NEUTROPHIL | 3.99 | 1.80 - 7.70 | [facility] | | | # | | K/cu mm | LABORATORY | | | | | | SERVICES, | | | | | | CORE | | + + + + + + | LYMPHOCYTE | 1.78 | 1.00 - 4.80 | [facility] | | | # | | K/cu mm | LABORATORY | | | | | | SERVICES, | | | | | | CORE | | + + + + + + | MONOCYTE # | 0.79 | 0.10 - 0.90 | [facility] | | | | | K/cu mm | LABORATORY | | | | | | SERVICES, | | | | | | CORE | | + + + + + + | EOS # | 0.22 | 0.00 - 0.50 | [facility] | | | | | K/cu mm | LABORATORY | | | | | | SERVICES, | | | | | | CORE | | + + + + + + | BASO # | 0.08 | 0.00 - 0.10 | [facility] | | | | | K/cu mm | LABORATORY | | | | | | SERVICES, | | | | | | CORE | | + + + + + + | IG# | 0.02 | 0.00 - 0.03 | [facility] | [...] At | + + + | Immature Granulocyes (IG) include metamyelocytes, myelocytes | [facility] | | and promyelocytes. Bands are not included in the IG count. New | LABORATORY | | methodology and reference ranges for some CBC/Differential analytes in | SERVICES, CORE | | effect on 01/10/13. | | + + + + + + + + | Performing | Address | City/State/Zipcode | Phone Number | | Organization | | | | + + + + + | [facility] | [address] | [place] [address] | | | SERVICES, [facility] | [address] | | | + + + + + CYCLIC CITRUL PEPTIDE AB IGG, SERUM (05/06/2013 4:10 PM PST) + + + + + + | Component | Value | Ref Range | Performed | Pathologist | | | | | At | Signature | + + + + + + | CYCLIC | 153 (H)Comment: | 0 - 19 Units | [facility] | | | CITRUL | INTERPRETIVE | | REG UNIV | | | PEPTIDE AB, | INFORMATION: Cyclic | | PTH - [facility] | | | IGG | Citrullinated | | | | | | PeptideAntibody, IgG | | | | | | 19 Units or less | | | | | | ................... | | | | | | Negative 20-39 Units | | | | | | ........................ | | | | | | Weak Positive 40-59 | | | | | | Units | | | | | | ........................ | | | | | | Moderate Positive 60 | | | | | | Units or greater | | | | | | ................ Strong | | | | | | Positive Anti-cyclic | | | | | | citrullinated peptide | | | | | | (anti-CCP), | | | | | | IgGantibodies are | | | | | | present in about 69-83 | | | | | | percent of patientswith | | | | | | rheumatoid arthritis | | | | | | (RA) and have | | | | | | specificities of93-95 | | | | | | percent. These | | | | | | autoantibodies may be | | | | | | present in | | | | | | thepreclinical phase of | | | | | | disease, are associated | | | | | | with future | | | | | | RAdevelopment, and may | | | | | | predict radiographic | | | | | | jointdestruction. | | | | | | Patients with weak | | | | | | positive results should | | | | | | bemonitored and testing | | | | | | repeated.Performed by | | | | | | [facility],[address] | | | | | | [address]as[address], [facility],[place] | | | | | | [address] | | | | | | [phone] | | | | | | Delvis copeland, | | | | | | , Lab. Director | | | | + + + + + + + + | Specimen | + + | Blood - Blood | + + + + + + + | Performing | Address | City/State/Zipcode | Phone Number | | Organization | | | | + + + + + | [facility] | [address] | [place], [place] | | | UNIV PTH - [facility] | | [address] | | + + + + + RHEUMATOID FACTOR, SERUM (05/06/2013 4:10 PM PST) + +--------+ + + + | Component | Value | Ref Range | Performed | Pathologist | | | | | At | Signature | + +--------+ + + + | RHEUMATOID | 30 (H) | <=14 IU/mL | [facility] | | | FACTOR | | | [facility] | | | | | | [facility] | | + +--------+ + + + + + | Specimen | + + | Blood - Blood | + + + + + + + | Performing | Address | City/State/Zipcode | Phone Number | | Organization | | | | + + + + + | [facility] | [address] | [place] [address] | | | [place] | | | | + + + + + C-REACT PRTN (FOR INFLAMMATION) (05/06/2013 4:10 PM PST) + +-------+ + + + | Component | Value | Ref Range | Performed | Pathologist | | | | | At | Signature | + +-------+ + + + | C-REACTIVE | <0.5 | <=0.8 mg/dL | [facility] | | | PROTEIN | | | AIRPORT - | | | | | | [place] | | + +-------+ + + + + + | Specimen | + + | Blood - Blood | + + + + + + + | Performing | Address | City/State/Zipcode | Phone Number | | Organization | | | | + + + + + | [facility] | [address] | [place] [address] | | | [place] | | | | + + + + + SEDIMENTATION RATE (05/06/2013 4:10 PM PST) + +-------+ + + + | Component | Value | Ref Range | Performed | Pathologist | | | | | At | Signature | + +-------+ + + + | SEDIMENTATI | 26 | 0 - 30 mm/hr | [facility] [...] + + | [facility] | [address] | [place] [address] | | | SERVICES, CORE | [address] | | | + + + + + COMPLETE METABOLIC SET (NA,K,CL,CO2,BUN,CREAT,GLUC,CA,AST,ALT,BILI TOTAL,ALK PHOS,ALB,PROT TOTAL) (05/06/2013 4:10 PM PST) + +---------+ + + + | Component | Value | Ref Range | Performed | Pathologist | | | | | At | Signature | + +---------+ + + + | GLUCOSE, | 89 | 60 - 99 mg/dL | [facility] | | | PLASMA | | | LABORATORY | | | (LAB) | | | SERVICES, | | | | | | CORE | | + +---------+ + + + | BUN, PLASMA | 22 (H) | 6 - 20 mg/dL | [facility] | | | (LAB) | | | LABORATORY | | | | | | SERVICES, | | | | | | CORE | | + +---------+ + + + | CREATININE | 0.90 | 0.60 - 1.10 | [facility] | | | PLASMA | | mg/dL | LABORATORY | | | (LAB) | | | SERVICES, | | | | | | CORE | | + +---------+ + + + | EGFR | >60 | >60 mL/min | [facility] | | | - | | | LABORATORY | | | GERMAN | | | SERVICES, | | | | | | CORE | | + +---------+ + + + | EGFR NON | >60 | >60 mL/min | [facility] | | | -REI | | | LABORATORY | | | RICAN | | | SERVICES, | | | | | | CORE | | + +---------+ + + + | SODIUM, | 140 | 136 - 145 | [facility] | [...] +---------+ + + + | CHLORIDE, | 105 | 97 - 108 mmol/L | [facility] | | | PLASMA | | | LABORATORY | | | (LAB) | | | SERVICES, | | | | | | CORE | | + +---------+ + + + | TOTAL CO2, | 30 | 21 - 32 mmol/L | [facility] | | | PLASMA | | | LABORATORY | | | (LAB) | | | SERVICES, | | | | | | CORE | | + +---------+ + + + | CALCIUM, | 9.1 | 8.6 - 10.2 | [facility] | | | PLASMA | | mg/dL | LABORATORY | | | (LAB) | | | SERVICES, | | | | | | CORE | | + +---------+ + + + | BILIRUBIN | 0.4 | 0.3 - 1.2 mg/dL | [facility] | | | TOTAL | | | LABORATORY | | | | | | SERVICES, | | | | | | CORE | | + +---------+ + + + | TOTAL | 6.5 | 6.4 - 8.2 g/dL | [facility] | | | PROTEIN, | | | LABORATORY | | | PLASMA | | | SERVICES, | | | (LAB) | | | CORE | | + +---------+ + + + | ALBUMIN, | 3.9 | 3.5 - 4.7 g/dL | [facility] | | | PLASMA | | | LABORATORY | | | (LAB) | | | SERVICES, | | | | | | CORE | | + +---------+ + + + | ALK PHOS | 88 | 53 - 141 U/L | [facility] | | | | | | LABORATORY | | | | | | SERVICES, | | | | | | CORE | | + +---------+ + + + | AST(SGOT) | 24 | 15 - 41 U/L | [facility] | | | | | | LABORATORY | | | | | | SERVICES, | | | | | | CORE | | + +---------+ + + + | ALT (SGPT) | 29 | 12 - 60 U/L | [facility] | | | | | | LABORATORY | | | | | | SERVICES, | | | | | | CORE | | + +---------+ + + + | ANION | 5 | 4 - 11 mmol/L | [facility] [...] + + + | ANION GAP | 5 | mmol/L | [facility] | | | [...] the MDRD equation recommended by the | [facility] | | National Kidney Disease Education Program. [...] Rapidly changing kidney | | | function New reference range effective 2012 for Total proteins | | | performed in Core Lab only. | | + + + + + + + + | Performing | Address | City/State/Zipcode | Phone Number | | Organization | | | | + + + + + | [facility] | [address] | [place] [address] | | | SERVICES, CORE | [address] | | | + + + + + documented in this encounter Visit Diagnoses + + | Diagnosis | + + | Joint pain Pain in joint, site unspecified | + + documented in this encounter"
--- OUTSIDE RECORDS SUMMARY | ~2019-05-17 | XMS | Encounter Summary ---
Demographics + + + | Address | [address] | | | [place] [address] | + + + | Home Phone | | + + + | Preferred Language | Unknown | + + + | Marital Status | | + + + | Jainism Affiliation | [id number] | + + + | Race | Unknown | + + + | Ethnic Group | Unknown | + + + Author + + + | Author | [facility] | | | and Azana | + + + | Organization | [facility] | | | and [...] [place], [place] | | | | | [address] | | + + + + + | [address] | ECON | [place], | | | | | [place] [address] | | + + + + + Care Team Providers + +------+ + | Care Consumer Education Specialist Name | Role | Phone | + [...] left hip | [address] | [place] | | | | | Trochanteric | [address] | [address] Phone: | | | | | bursitis, | [place], | [phone] | | | | | right hip | [place] | Fax: | | | | | Fibromyalgia | [address] | [phone] | | | | | Procedures | Phone: | | | | | | PT Noel w/ | [phone] | | | | | | Aiyana | Fax: | | | | | | [place] | [phone] | | +--------+--------+ + + + + Encounter Details +--------+---------+ + + + | Date | Type | Department | Care Team | Description | +--------+---------+ + + + | 06/10/ | Office | [facility] | [place], | Fibromyalgia | | 2018 | Visit | [facility] THERAPY PT | Sophia Kingsley PA-C | (Primary Dx); Neck | | | | OP [address] | [address] | pain; Trochanteric | | | | [place] | [place], [place] | bursitis of both | | | | [address] | [address] | hips | | | | [phone] | [phone] | | | | | | | | | | | | Aiyana Fish S, PT | | | | | | [address] | | | | | | [place] | | | | | | [address] | | | | | | | [...] encounter Progress Notes Aiyana Fish, PT - 06/10/2018 1:00 PM PSTFormatting of this note might be different fro m the original. [facility] THER[facility] PT OP [address] [place] [address] Physical Therapy Daily Treatment Note Date: 06/10/2018 Patient Information Patient Name: Ashly Santiago Date of : 1940 Age: 78 y.o. Encounter Diagnoses Code Name Primary? M79.7 Fibromyalgia Yes M54.2 Neck pain M70.61, M70.62 Trochanteric bursitis of both hips Date of Onset: 04/10/2018 Referring Provider: Sophia Bush PA-C Rehab Precautions Office Visit from 04/17/2018 in [facility] PT OP Rehab Precautions Precautions None Rehab Learning Style Office Visit from 04/17/2018 in [facility] PT OP Office Visit fro m 10/19/2016 in [facility] PT OP Learning Style Patient's [employer] Learning Style listening, reading, observation, performance of task lis tening, reading, observation, performance of task Start Time: 1304 Stop time: 1402 Duration: 58 minutes Timed Treatment Codes: 58 minutes # of PT Visits to Date: 7 Subjective: Pt reports that she has had a "rough" week. She developed some pain in her right knee and leg on Sunday (she was here on Sunday for a treatment). She went to her Dr. and they to ok an x-ray of her knee and did and ultrasound of her leg to r/o a blood clot. Everything w as "OK" Pain Assessment: Pain Rating Pre Assessment: 8 Location: right leg Objective: Education: Persistent pain education on how fear effects pain Myofascial release and positional release therapy to multiple areas: Right hip and leg, ri ght psoas, mid thoracic spine and upper left thoracic spine. Assessment: Good response to treatment. Fascial release resulted in improved mobility in the right hip although she was still in pain following the session. Plan: Continue with manual therapy and development of home program Electronically signed by: Aiyana Fish, PT, 06/10/2018 14:06 Patient Name: Ashly Santiago/: 1940/ documented in this en counter Plan of Treatment +--------+ + + + + | Date | Type | Specialty | Care Team | Description | +--------+ + + + + | 05/19/ | Hospital | Radiology | Dennys Pineda PA-C | | | 2019 | Encounter | | [address] | | | | | | [address] [facility] | | | | | | [place] [address] | | | | | | [phone] | | | | | | | | | | | | Senior Account RepresentativeNaomi | | +--------+ + + + + documented as of this encounter Visit Diagnoses + + | Diagnosis | + + | Fibromyalgia - Primary Mylagia and myositis, unspecified | + + | Neck pain Cervicalgia | + + | Trochanteric bursitis of both hips Enthesopathy of hip region | + + documented in this encounter
--- OUTSIDE RECORDS SUMMARY | ~2019-05-17 | XMS | Encounter Summary ---
Demographics + + + | Address | [address] | | | [place] [address] | + + + | Home Phone [...] + | Author | [facility] | | | and [place] | + + + | Organization | [facility] | | | and [...] [place], [place] | | | | | [address] | | + + + + + | [address] Doherty | ECON | [place], | | | | | [place] [address] | | + + + + + Care Team Providers + +------+ + | Care Plate Molder Name | Role | Phone | + +------+ + | Nathan Luevano DO | PCP | | + +------+ + Encounter Details +--------+ + + + + | Date | Type | Department | Care Team | Description | +--------+ + + + + | 11/15/ | Hospital | [facility] | Onesimo Oliveira | S/P lumbar fusion | | 2018 | Encounter | MED CTR XRAY [address] | [address] | | | | | [place] | [address] | | | | | [place] [address] | [place] | | | | | [phone] | [address] | | | | | | | [...] + + + +---------+ + + | MYRBETRIQ 50 MG ER | Take 50 mg by mouth | | 0 | 05/18/20 | | | tablet | Daily. | | | 18 | | + + + +---------+ + [...] +---------+ + + | tiZANidine | Take 4 mg by mouth | | 0 | 10/11/19 | | | (ZANAFLEX) 4 mg | Daily. | | | 18 | 8 | | tablet | | [...] +--------+ + + + + | 05/19/ Hospital | Radiology | Dennys Pineda PA-C | | | 2019 | Encounter | | [address] | | | | | | [address] [place] | | | | | | [place] [address] | | | | | | [phone] | | | | | | | | | | | | Telesales SupervisorNaomi | | +--------+ + + + + documented as of this encounter Procedures + +--------+ + + + | Procedure Name | Priori | Date/Time | Associated Diagnosis | Comments | | | ty | | | | + +--------+ + + + | XR LUMBAR SPINE 2 OR | Routin | 11/15/2017 | S/P lumbar fusion | Results for this | | 3 VW | e | 2:52 PM | | procedure are in the | | | | PDT | | results section. | + +--------+ + + + documented in this encounter Results XR Lumbar Spine 2 or 3 Vw (11/15/2017 2:52 PM PDT) + + | Specimen | + + | | + + + + + | Narrative | Performed At | + + + | EXAM:XR LUMBAR SPINE 2 OR 3 VW CLINICAL HISTORY: Postop | [facility] | | COMPARISON: Lumbar spine radiographs dating to February 14, 2017. | | | FINDINGS: Frontal and lateral views of the lumbar spine. Posterior | | | and interbody fusion changes from L4 through S1. Intact hardware. | | | No change in position of interbody graft markers. No change in | | | spinal alignment. Suggestion of ongoing bone development at the | | | disc levels. The lucency suggested on the May 16 study is no | | | longer visible. IMPRESSION - No radiographic evidence for an | | | interval complication. Dictated and Signed by: Joshua Madison MD | | | Electronically signed: 11/15/2017 3:58 PM | | + + + + + | Procedure Note | + + | Vamsi Pitts Results In - 11/15/2017 4:01 PM PDT EXAM:XR LUMBAR SPINE 2 OR 3 VW | | | | CLINICAL HISTORY: Postop | | | | COMPARISON: Lumbar spine radiographs dating to February 14, 2017. | | | | FINDINGS: Frontal and lateral views of the lumbar spine. Posterior and | | interbody fusion changes from L4 through S1. Intact hardware. No change in | | position of interbody graft markers. No change in spinal alignment. Suggestion | | of ongoing bone development at the disc levels. The lucency suggested on the | | May 16 study is no longer visible. | | | | IMPRESSION - | | | | No radiographic evidence for an interval complication. | | | | Dictated and Signed by: Joshua Madison MD | | Electronically signed: 11/15/2017 3:58 PM | + + + +---------+ + + | Performing | Address | City/State/Zipcode | Phone Number | | Organization | | | | + +---------+ + + | [facility] | | | | + +---------+ + + documented in this encounter Visit Diagnoses + + | Diagnosis | + + | S/P lumbar fusion Arthrodesis status | + + documented in this encounter"
--- OUTSIDE RECORDS SUMMARY | ~2019-05-17 | XMS | Encounter Summary ---
Demographics + + + | Address | [address] | | | [place] [address] | + + + | Home Phone | | + + + | Preferred Language | Unknown | + + + | Marital Status | | + + + | Jainism Affiliation | 1077 | + + + | Race | Unknown | + + + | Ethnic Group | Unknown | + + + Author + + + | Author | [facility] | | | and Azana | + + + | Organization | [facility] | | | and [...] [place], [place] | | | | | [address] | | + + + + + | Helena Doherty | ECON | [place], | | | | | [place] [address] | | + + + + + Care Team Providers + +------+ + | Care Prestidigitator Name | Role | Phone | + +------+ + | Nathan Luevano DO | PCP | | + +------+ + Encounter Details +--------+ + + + + | Date | Type | Department | Care Team | Description | +--------+ + + + + | 02/07/ | Orders Only | [facility] | Agusto Pereira MD | Lumbar radiculopathy | | 2017 | | NEUROSURGERY [address] | [address] | (Primary Dx); Facet | | | | [address] | [place] [address] | arthritis of lumbar | | | | [place], [place] | [phone] | region (HCC); Low | | | | [address] | | back pain, | | | | [phone] | | unspecified back | | | | | | pain laterality, | | | | | | unspecified | | | | | | chronicity, with | | | | | | sciatica presence | | | | | | unspecified; | | | | | | Sacroiliitis ([facility]); | | | | | | Lumbar foraminal | | | | | | stenosis; Scoliosis | | | | | | of lumbar spine, | | | | | | unspecified | | | | | | scoliosis type | +--------+ + + + + Social [...] | | | | | [place] [address] | | | | | | [phone] | | | | | | | | | | | | Manager LineNaomi | | +--------+ + + + + documented as of this encounter Results XR Chest 2 VW (02/07/2017 1:46 PM PDT) + + | Specimen | + + | | + + + + + | Narrative | Performed At | + + + | CLINICAL INFORMATION: Pre op. COMPARISON: None available. | [facility] | | FINDINGS: Frontal and lateral views of the chest. Lungs: No | [facility] | | focal airspace disease, pleural effusion, or pneumothorax. Small focal | [facility] | | atelectasis/scarring at the left lateral lung base. Heart: | - IMAGING | | Cardiac silhouette is of normal size. Mediastinum: Central | | | pulmonary vasculature has a normal appearance. Tortuous aorta. | | | IMPRESSION - No acute disease. Focal left lateral lung base | | | scarring/atelectasis. Dictated and Signed by: Randell Gonzales MD | | | Electronically signed: 02/07/2017 2:29 PM | | + + + + + | Procedure Note | + + | Hong, Rad Results In - 02/07/2017 2:32 PM PDT CLINICAL INFORMATION: Pre op. | | | | COMPARISON: None available. | | | | FINDINGS: | | Frontal and lateral views of the chest. | | | | Lungs: No focal airspace disease, pleural effusion, or pneumothorax. Small focal | | atelectasis/scarring at the left lateral lung base. | | | | Heart: Cardiac silhouette is of normal size. | | | | Mediastinum: Central pulmonary vasculature has a normal appearance. Tortuous | | aorta. | | | | | | IMPRESSION - No acute disease. Focal left lateral lung base scarring/atelectasis. | | | | Dictated and Signed by: Randell Gonzales MD | | Electronically signed: 02/07/2017 2:29 PM | + + + + + + + | Performing | Address | City/State/Zipcode | Phone Number | | Organization | | | | + + + + + | [facility] | [address] | [place] | [phone] | | [facility] | | [address] | | | - IMAGING | | | | + + + + + CBC with Differential (02/07/2017 1:30 PM PDT) + +-------+ + + + | Component | Value | Ref Range | Performed | Pathologist | | | | | At | Signature | + +-------+ + + + | WBC | 6.6 | 4.0 - 11.0 K/uL | [facility] | | | | | | [facility] | | | | | | [facility] | | | | | | [facility] - | | | | | | LABORATORY | | + +-------+ + + + | RBC | 3.70 | 3.70 - 5.20 | [facility] | | | | | M/uL | [facility] | | | | | | MEDICAL | | | | | | CENTER - | | | | | | LABORATORY | | + +-------+ + + + | Hemoglobin | 11.8 | 11.5 - 16.0 | [facility] | | | | | g/dL | [facility] | | | | | | MEDICAL | | | | | | CENTER - | | | | | | LABORATORY | | + +-------+ + + + | Hematocrit | 35.6 | 34.0 - 47.0 % | [facility] | | | | | | [facility] | | | | | | [facility]ICAL | | | | | | CENTER - | | | | | | LABORATORY | | + +-------+ + + + | MCV | 96.3 | 83.0 - 101.0 fL | [facility] | | | | | | [facility] | | | | | | [facility]ICAL | | | | | | CENTER - | | | | | | LABORATORY | | + +-------+ + + + | MCH | 31.8 | 28.0 - 35.0 pg | [facility] | | | | | | [facility] | | | | | | [facility]ICAL | | | | | | CENTER - | | | | | | LABORATORY | | + +-------+ + + + | MCHC | 33.0 | 32.0 - 36.0 | [facility] | | | | | g/dL | [facility] | | | | | | MEDICAL | | | | | | CENTER - | | | | | | LABORATORY | | + +-------+ + + + | RDW-CV | 13.6 | <15.0 % | [facility] | | | | | | [facility] | | | | | | MEDICAL | | | | | | CENTER - | | | | | | LABORATORY | | + +-------+ + + + | Platelet | 221 | 140 - 440 K/uL | [facility] | | | Count | | | [facility] | | | | | | [facility]ICAL | | | | | | CENTER - | | | | | | LABORATORY | | + +-------+ + + + | MPV | 9.4 | fL | [facility] | | | | | | [facility] | | | | | | MEDICAL | | | | | | CENTER - | | | | | | LABORATORY | | + +-------+ + + + | % | 62.7 | 45.0 - 82.0 % | [facility] | | | Neutrophils | | | [facility] | | | | | | MEDICAL | | | | | | CENTER - | | | | | | LABORATORY | | + +-------+ + + + | % | 24.9 | 20.0 - 45.0 % | [facility] | | | Lymphocytes | | | [facility] | | | | | | MEDICAL | | | | | | CENTER - | | | | | | LABORATORY | | + +-------+ + + + | % Monocytes | 10.1 | 4.0 - 12.0 % | [facility] | | | | | | [facility] | | | | | | MEDICAL | | | | | | CENTER - | | | | | | LABORATORY | | + +-------+ + + + | % | 1.5 | 0.0 - 5.0 % | [facility] | | | Eosinophils | | | [facility] | | | | | | MEDICAL | | | | | | CENTER - | | | | | | LABORATORY | | + +-------+ + + + | % Basophils | 0.8 | 0.0 - 1.0 % | [facility] | | | | | | [facility] | | | | | | MEDICAL | | | | | | CENTER - | | | | | | LABORATORY | | + +-------+ + + + | Absolute | 4.10 | 1.80 - 8.50 | [facility] | | | Neutrophils | | K/uL | [facility] | | | | | | MEDICAL | | | | | | CENTER - | | | | | | LABORATORY | | + +-------+ + + + | Absolute | 1.60 | 0.60 - 3.20 | [facility] | | | Lymphocytes | | K/uL | [facility] | | | | | | MEDICAL | | | | | | CENTER - | | | | | | LABORATORY | | + +-------+ + + + | Absolute | 0.70 | 0.00 - 1.00 | [facility] | | | Monocytes | | K/uL | [facility] | | | | | | MEDICAL | | | | | | CENTER - | | | | | | LABORATORY | | + +-------+ + + + | Absolute | 0.10 | 0.00 - 0.40 | [facility] | | | Eosinophils | | K/uL | [facility] | | | | | | MEDICAL | | | | | | CENTER - | | | | | | LABORATORY | | + +-------+ + + + | Absolute | 0.10 | 0.00 - 0.10 | [facility] | | | Basophils | | K/uL | [facility] | [facility] | [facility] | | | | | | [facility] - | | | | | | LABORATORY | | + +-------+ + + + + + | Specimen | + + | Blood | + + + + + + + | Performing | Address | City/State/Zipcode | Phone Number | | Organization | | | | + + + + + | [facility] | [address] | [place] | [phone] | | [facility] | | [address] | | | - LABORATORY | | | | + + + + + Basic Metabolic Panel (02/07/2017 1:30 PM PDT) + + + + + + | Component | Value | Ref Range | Performed | Pathologist | | | | | At | Signature | + + + + + + | Na | 139 | 136 - 149 | [facility] | | | | | mmol/L | [facility] | | | | | | MEDICAL | | | | | | CENTER - | | | | | | LABORATORY | | + + + + + + | K | 3.8 | 3.5 - 5.1 | [facility] | | | | | mmol/L | [facility] | | | | | | [facility] | | | | | | C[facility] - | | | | | | LABORATORY | | + + + + + + | Cl | 104 | 98 - 109 mmol/L | [facility] | | | | | | [facility] | | | | | | MEDICAL | | | | | | CENTER - | | | | | | LABORATORY | | + + + + + + | CO2 | 27 | 24 - 31 mmol/L | [facility] | | | | | | [facility] | | | | | | MEDICAL | | | | | | CENTER - | | | | | | LABORATORY | | + + + + + + | Anion Gap | 8 | 3 - 16 mmol/L | [facility] | | | | | | [facility] | | | | | | MEDICAL | | | | | | CENTER - | | | | | | LABORATORY | | + + + + + + | Glucose | 99 | 70 - 109 mg/dL | [facility] | | | | | | [facility] | | | | | | MEDICAL | | | | | | CENTER - | | | | | | LABORATORY | | + + + + + + | BUN | 25 (H) | 7 - 18 mg/dL | [facility] | | | | | | [facility] | | | | | | [facility] | | | | | | CENTER - | | | | | | LABORATORY | | + + + + + + | Creatinine | 0.96 | 0.60 - 1.30 | [facility] | | | | | mg/dL | [facility] | | | | | | MEDICAL | | | | | | CENTER - | | | | | | LABORATORY | | + + + + + + | eGFR if not | 56 (L)Comment: | >=60 | [facility] | | | | GLOMERULAR FILTRATION | mL/min/1.73m2 | [facility] | | | [place] | RATE,ESTIMATED | | MEDICAL | | | | mL/min/1.08l9Rapf than | | CENTER - | | | | 60 Chronic kidney | | LABORATORY | | | | disease,if found over a | | | | | | 3-month period.Less than | | | | | | 15 Kidney failureFor | | | | | | | | | | | | Americans,multiply the | | | | | | calculated GFR by 1.21. | | | | | | | | | | + + + + + + | Calcium | 9.3 | 8.3 - 10.5 | [facility] | | | | | mg/dL | [facility] | | | | | | MEDICAL | | | | | | CENTER - | | | | | | LABORATORY | | + + + + + + | BUN/Creatin | 26.0 | | [facility] | | | ine Ratio | | | [facility] | | | | | | MEDICAL | | | | | | CENTER - | | | | | | LABORATORY | | + + + + + + + + | Specimen | + + | Blood | + + + + + + + | Performing | Address | City/State/Zipcode | Phone Number | | Organization | | | | + + + + + | [facility] | [address] | [place] | [phone] | | [facility] | | [address] | | | - LABORATORY | | | | + + + + + ECG 12 lead (02/07/2017 1:26 PM PDT) + + + + + + | Component | Value | Ref Range | Performed | Pathologist | | | | | At | Signature | + + + + + + | VENTRICULAR | 60 | BPM | [facility] | | | RATE EKG | | | | | + + + + + + | ATRIAL RATE | 60 | BPM | [facility] | | + + + + + + | P-R | 122 | ms | [facility] | | | INTERVAL | | | | | + + + + + + | QRS | 92 | ms | [facility] | | | DURATION | | | | | + + + + + + | Q-T | 468 | ms | [facility] | | | INTERVAL | | | | | + + + + + + | Q-T | 468 | ms | [facility] | | | INTERVAL | | | | | | (CORRECTED) | | | | | + + + + + + | P WAVE AXIS | 9 | degrees | [facility] | | + + + + + + | QRS AXIS | 37 | degrees | [facility] | | + + + + + + | T AXIS | 26 | degrees | [facility] | | + + + + + + | INTERPRETAT | Normal sinus | | [facility] | | | ION TEXT | rhythmNormal ECGNo | | | | | | previous ECGs | | | | | | availableConfirmed by | | | | | | FELIX MARROQUIN, LEISA | | | | | | ([id number]) on 02/07/2017 | | | | | | 3:00:30 PM | | | | + + + + + + + + | Specimen | + + | | + + + + + | Narrative | Performed At | + + + | | | + + + + +---------+ + + | Performing | Address | City/State/Zipcode | Phone Number | | Organization | | | | + +---------+ + + | [facility] | | | | + +---------+ + + documented in this encounter Visit Diagnoses + + | Diagnosis | + + | Lumbar radiculopathy - Primary Thoracic or lumbosacral neuritis or radiculitis, | | unspecified | + + | 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
--- OUTSIDE RECORDS SUMMARY | ~2019-05-17 | XMS | Encounter Summary ---
Demographics + + + | Address | [address] | | | [place] [address] | + + + | Home Phone | | + + + | Preferred Language | Unknown | + + + | Marital Status | | + + + | Islam Affiliation | 1077 | + + + | Race | Unknown | + + + | Ethnic Group | Unknown | + + + Author + + + | Author | [facility] | | | and Azana | + + + | Organization | [facility] | | | and Azana [...] [place], [place] | | | | | [address] | | + + + + + | Helena Doherty | ECON | [place], | | | | | [place] [address] | | + + + + + Care Team Providers + +------+ + | Care Lead Trainer Name | Role | Phone | + [...] left hip | [address] | [place] | | | | | Trochanteric | [address] | [address] Phone: | | | | | bursitis, | [place], | [phone] | | | | | right hip | [place] | Fax: | | | | | Fibromyalgia | [address] | [phone] | | | | | Procedures | Phone: | | | | | | PT Noel w/ | [phone] | | | | | | [place] | Fax: | | | | | | [place] | [phone] | | +--------+--------+ + + + + Encounter Details +--------+---------+ + + + | Date | Type | Department | Care Team | Description | +--------+---------+ + + + | 04/30/ | Office | [facility] | [place], | Neck pain (Primary | | 2018 | Visit | [facility] | Sophia Kingsley PA-C | Dx); Trochanteric | | | | OP [address] | [address] | bursitis of both | | | | [place] | [place], [place] | hips; Fibromyalgia | | | | [address] | [address] | | | | | [phone] | [phone] | | | | | | | | | | | | Aiyana Fish S, PT | | | | | | [address] | | | | | | [place] | | | | | | [address] | | | | | | | [...] encounter Progress Notes Aiyana Fish, PT - 04/30/2018 1:00 PM PSTFormatting of this note might be different fro m the original. [facility] OP [address] [place] [address] Physical Therapy Daily Treatment Note Date: 04/30/2018 Patient Information Patient Name: Ashly Santiago Date of : 1940 Age: 78 y.o. Encounter Diagnoses Code Name Primary? M54.2 Neck pain Yes M70.61, M70.62 Trochanteric bursitis of both hips M79.7 Fibromyalgia Date of Onset: 04/10/2018 Referring Provider: Sophia Bush PA-C Rehab Precautions Office Visit from 04/17/2018 in [facility] OP Rehab Precautions Precautions None Rehab Learning Style Office Visit from 04/17/2018 in [facility] OP Office Visit fro m 10/19/2016 in [facility] OP Learning Style Patient's [employer] Learning Style listening, reading, observation, performance of task lis tening, reading, observation, performance of task Start Time: 1200 Stop time: 1302 Duration: 62 minutes Timed Treatment Codes: 55 minutes # of PT Visits to Date: 2 Subjective: Pt reports that she is in a lot of pain in social situations where she is sitting and turni ng her head to talk to people and when she is reading Pain Assessment: Pain Rating Pre Assessment: 0 Location: no neck pain when just sitting and not moving. low back is stiff Objective: Education: supported sitting with low back support and something under her feet and pillows on her lap Manual Treatment: Myofascial Release/CranioSacral Therapy to multiple areas: Dural tube mo bilization, left hip and leg, upper thoracic spine, cervical spine with emphasis on the uppe r traps Assessment: Good response to treatment. Fascial release resulted in improved mobility in the cervical spine especially LR following the session. Plan: Pt will use new position for reading at home. She found it very comfortable Electronically signed by: Aiyana Fish PT, 04/30/2018 14:37 Patient Name: Ashly Santiago/: 1940/ documented in this en counter Plan of Treatment +--------+ + + + + | Date | Type | Specialty | Care Team | Description | +--------+ + + + + | 05/19/ | Hospital | Radiology | Dennys Pineda PA-C | | | 2018 | Encounter | | [address] | | | | | | [address] [facility] | | | | | | [place] [address] | | | | | | [phone] | | | | | | | | | | | | Automotive Vehicle InspectorNaomi | | +--------+ + + + + documented as of this encounter Visit Diagnoses + + | Diagnosis | + + | Neck pain - Primary Cervicalgia | + + | Trochanteric bursitis of both hips Enthesopathy of hip region | + + | Fibromyalgia Mylagia and myositis, unspecified | + + documented in this encounter"
--- OUTSIDE RECORDS SUMMARY | ~2019-05-17 | XMS | Encounter Summary ---
Demographics + + + | Address | [address] | | | [place] [address] | + + + | Home Phone [...] Author | [facility] | | | and Azana | + + + | Organization | [facility] | | [...] [place], [place] | | | | | [address] | | + + + + + | Helena Doherty | ECON | [place], | | | | | [place] [address] | | + + + + + Care Team Providers + +------+ + | Care Composite Boat Builder Name | Role | Phone | + +------+ + | Thee Boss MD | PCP | | + +------+ + Reason for Visit + + + | Reason | Comments | + + + | Back Pain | Right sided low back and hip pain | + + + Encounter Details +--------+---------+ + + + | Date | Type | Department | Care Team | Description | +--------+---------+ + + + | 09/04/ | Office | [facility] | Osman Beth | Sacroiliitis (HCC) | | 2012 | Visit | PHYSIATRY [address] | MD Dee [address] | (Primary Dx); | | | | [place], | [place], [place] | Bursitis, hip; Facet | | | | [place] [address] | [address] | arthritis of lumbar | | | | [phone] | | region; | | | | | | Fibromyalgia; | | | | | | INTERNAL | | | | | | DERANGEMENT, KNEE | +--------+---------+ + + + Social History [...] + + + | Blood Pressure | 156/84 | 09/04/2012 11:12 AM | | | | | PDT | | + + + + + | Pulse | 74 | 09/04/2012 11:12 AM | | | | | PDT [...] Weight | 90.7 kg (200 lb) | 09/04/2012 11:12 AM | | | | | PDT | | + + + + + | Height | 165.1 cm (5' 5") | 09/04/2012 11:12 AM | | | | | PDT | | + + + + + | Body Mass Index | 33.28 | 09/04/2012 11:12 AM | | | | | PDT | | + + + + + documented in this encounter Patient Instructions Patient Instructions Osman Beth MD - 09/04/2012 11:39 AM [facility] thirty minutes before your scheduled procedure to allow for time to check in. You may eat and drink as usual on the day of the procedure. Do not take any blood thinning medications for at least 5-7 days prior to your procedure. All other medications should be taken as usual. Common blood thinning medications include: Aspirin (a baby aspirin is o.k.) Ibuprofen (Advil or Motrin) Naproxen (Aleve) Nabumetone (Relafen) Clopidogrel (Plavix) Dipyridamole/ASA (Aggrenox) Warfarin (Coumadin) Dabigatran (Pradaxa) There are many others. If you have questions about your medications please contact our off ice. Please also provide a car pick up driver to take you home on the day of the procedure. documented in this encounter Progress Notes Osman Beth MD - 09/04/2012 11:24 AM PDT Subjective: Patient ID: Ashly Santiago is a 72 y.o. female. Chief Complaint Patient presents with Back Pain Right sided low back and hip pain HPI The patient is being seen today in follow-up for complaints of right sided low back sharmila n that radiates into the right hip. The patient has been seen for this issue in the past. S he has been found to have multilevel DDD. There is also some foraminal narrowing, especiall y off to the right at L4-L5. She has had prior epidural injections at that level which did n ot provide much relief. The patient's symptoms have been present off and on since at least 1983. She describes her symptoms as aching. Her symptoms have been constant. Her symptoms worsen with standing and w hen laying on the right side. Her symptoms improve with sitting. She describes pins and need les sensation on the outside of the right leg. She describes generalized weakness in the leg s. She denies bowel and bladder dysfunction. She also denies saddle anesthesia. Treatments for these complaints have included physical therapy, massage and chiropractics. Prior injections have included a Bilateral L4-L5 epidural steroid injection which was perfo rmed by me on 12/06/2011. She has also had trochanteric bursa injections on the left with ot her providers and that did reportedly provide relief. MRI of the lumbar spine was reviewed in detail with the patient. Current Outpatient Prescriptions Medication Sig Dispense Refill omeprazole (PRILOSEC) 10 mg capsule Take 20 mg by mouth every morning (before breakfast ). celecoxib (CELEBREX) 200 mg capsule Take 200 mg by mouth Daily. methotrexate 2.5 mg tablet Take 7.5 mg by mouth Once a week. hydroxychloroquine (PLAQUENIL) 200 mg tablet Take 200 mg by mouth 2 times daily. hydrochlorothiazide 25 mg tablet Take 25 mg by mouth Daily. predniSONE (DELTASONE) 20 mg tablet Take 20 mg by mouth Daily. Cholecalciferol (VITAMIN D) 1000 UNITS CAPS solifenacin (VESICARE) 10 MG tablet valsartan (DIOVAN) 40 mg tablet Take 40 mg by mouth Daily. Calcium Carbonate-Vitamin D (CALCIUM + D PO) TABS Glucosamine Sulfate 1000 MG CAPS Chondroitin Sulfate 250 MG CAPS L-Lysine HCl 500 MG CAPS estradiol (ESTRACE VAGINAL) 0.1 mg/g vaginal cream Patient's medications, allergies, past medical, surgical, social and family histories were reviewed and updated as appropriate. Review of Systems No complaints other than those listed above in HPI. Objective: Physical Exam Nursing note and vitals reviewed. Constitutional: She is oriented to person, place, and time. She appears well-developed and well-nourished. HENT: Head: Normocephalic and atraumatic. Neck: No tracheal deviation present. Cardiovascular: Normal rate and regular rhythm. Pulmonary/Chest: Effort normal and breath sounds normal. No respiratory distress. Lymphadenopathy: She has no cervical adenopathy. Neurological: She is alert and oriented to person, place, and time. She has normal strength . No cranial nerve deficit or sensory deficit. She displays no Babinski's sign on the right side. She displays no Babinski's sign on the left side. Reflex Scores: Patellar reflexes are 2+ on the right side and 2+ on the left side. Achilles reflexes are 2+ on the right side and 2+ on the left side. Skin: Skin is warm, dry and intact. No abrasion, no bruising, no ecchymosis, no laceration and no rash noted. Psychiatric: She has a normal mood and affect. Her speech is normal and behavior is normal. Thought content normal. Cognition and memory are normal. Musculoskeletal: Straight leg raise and slump-sit are negative. Randell's maneuver and im pingement testing were negative for any groin pain. There was tenderness to palpation ove r the greater trochanters bilaterally and also the right sacral sulci. The patient localize d the majority of the pain to the right SI region and the lateral hip over the greater troch anter. Lumbar facet loading was positive for pain at the L5-S1 level. Strength testing show ed 5/5 strength throughout the lower extremities. The patient was able to heel and toe walk without difficulty. There was no redness, effusion or warmth in the knees or ankles. She did have joint line tenderness in both knees. Assessment: 1. Sacroiliitis 2. Bursitis, hip 3. DDD lumbar - multilevel, some foraminal narrowing right L4-L5 4. Facet arthritis of lumbar region 5. Fibromyalgia 6. Internal derangement, knee 7. Rheumatoid arthritis Plan: 1. The patient does have several potential sources of pain. It appears to me that the gre atest pain generators are the right SI joint and right trochanteric bursitis. I offered a Ri ght SI joint injection and a right trochanteric bursa injection which will be performed late r today. 2. The patient is following with Dr. Shelton for RA. She is on methotrexate and Plaquenil . These could potentially lower her immune response and we discussed the risks of injection s while on these medications. 3. If the radicular pain and dysesthesias continue in the leg I may consider trying anothe r right L4-L5 TFESI. 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
--- OUTSIDE RECORDS SUMMARY | ~2019-05-17 | XMS | Encounter Summary ---
Demographics + + + | Address | [address] | | | [place] [address] | + + + | Home Phone | | + + + | Preferred Language | Unknown | + + + | Marital Status | | + + + | Religion Affiliation | Unknown | + + + | Race | White | + + + | Ethnic Group | Not or | + + + Author + + + | Author | [facility] | + + + | Organization | [facility] | + + + | Address | Unknown | + + + | Phone | Unavailable | + + + Support + + +---------+ + | Name | Relationship | Address | Phone | + + +---------+ + | Alon Santiago | ECON | Unknown | | + + +---------+ + Care Team Providers + +------+ + | Care Pest Control Applicator Name | Role | Phone | + [...] 2014 | Encounter | [facility] | [address] | (Hydroxychloroquine) | | | | [address] | [address] [place], | 200 mg | | | | Amara Chatman Mailcode: | [place] [address] | | | | | [address] Physician's | [phone] | | | | | [address], [address] Floor | | | | | | [place], [place] | | | | | | [address] | | | | | | [phone] | | | +--------+ + + + [...]
--- OUTSIDE RECORDS SUMMARY | ~2019-05-17 | XMS | Encounter Summary ---
Demographics + + + | Address | [address] | | | [place] [address] | + + + | Home Phone | | + + + | Preferred Language | Unknown | + + + | Marital Status | | + + + | Yarsanism Affiliation | 1077 | + + + | Race | Unknown | + + + | Ethnic Group | Unknown | + + + Author + + + | Author | [facility] | | | and Azana | + + + | Organization | [facility] | | | and [...] [place], [place] | | | | | [address] | | + + + + + | Helena Doherty | ECON | [place], | | | | | [place] [address] | | + + + + + Care Team Providers + +------+ + | Care Engineering Intern Name | Role | Phone | + [...] | Degenerative | [address] | [place], [place] | | | | | disc | [place] | [address] Phone: | | | | | disease, | [address] | [phone] | | | | | lumbar | Phone: | Fax: | | | | | Lumbar | [phone] | [phone] | | | | | foraminal | Fax: | | | | | | stenosis | [phone] | | | | | | Fibromyalgia [...] Description | +--------+---------+ + + + | 10/25/ | Office | [facility] | Fay, | Acute left-sided low | | 2017 | Visit | [facility] CTR THERAPY PT | F[address]IAN Castillo [address] | back pain with | | | | OP [address] | [facility], | sciatica, sciatica | | | | [place] | [place] [address] | laterality | | | | [address] | [phone] | unspecified (Primary | | | | [phone] | | Dx); Sacroiliitis | | | | | Aiyana Fish S, PT | ([facility]); Fibromyalgia | | | | | [address] | | | | | | [place] | | | | | | [address] | | | | | | | [...] as of this encounter Progress Notes Aiyana Fish S, PT - 10/25/2016 1:07 PM PDTFormatting of this note might be different fro m the original. [facility] CTR THERAPY PT OP [address] [place] [address] Physical Therapy Daily Treatment Note Date: 10/25/2016 Patient Information Patient Name: Ashly Santiago Date of : 1940 Age: 76 y.o. Encounter Diagnoses Code Name Primary? M54.40 Acute left-sided low back pain with sciatica, sciatica laterality unspecified Alejo solorzano M46.1 Sacroiliitis (HCC) M79.7 Fibromyalgia Date of Onset: 06/08/2016 Referring Provider: Anna Aponte PA-C Rehab Precautions Office Visit from 10/19/2016 in [facility] CTR THERAPY PT OP Rehab Precautions Precautions None Rehab Learning Style Office Visit from 10/19/2016 in [facility] CTR THERAPY PT OP Learning Style Patient's Optimum Learning Style listening, reading, observation, performance of task Start Time: 1305 Stop time: 1410 Duration: 65 minutes Timed Treatment Codes: 65 minutes # of PT Visits to Date: 2 Subjective: Pt reports that she felt good right after the last brief treatment but is in more pain toda y. Pain Assessment: Pain Rating Pre Assessment: 6 Location: lowr abck and left leg Objective: Exercise: UE flexion with hands clasped to increase movement of her ribs and stretch the L atissimus dorsi. Manual Treatment: Myofascial release and positional release therapy: Dural tube mobilizati on, left hip, upper thoracic spine, and cervical spine. Assessment: Good response to treatment. Fascial release resulted in improved mobility in the upper bod y and lower pain level reported to be 6/10 in her left hip and leg and her gait was less ant algic following the session. Plan: Continue with manual therapy and development of home program. She will do the UE stretch 2 x/day 5 reps while lying supine in her bed. Electronically signed by: Aiyana Fish PT, 10/25/2016 14:23 Patient Name: Ashly Santiago/: 1940/ documented in [...] | | | | | [address] [facility] | | | | | | [place] [address] | | | | | | [phone] | | | | | | | | | | | | Mandolin Repair Person, Naomi | | +--------+ + + + + documented as of this encounter Visit Diagnoses + + | Diagnosis | + + | Acute left-sided low back pain with sciatica, sciatica laterality unspecified - | | Primary | + + | Sacroiliitis (HCC) Sacroiliitis, not elsewhere classified | + + | Fibromyalgia Mylagia and myositis, unspecified | + + documented in this encounter"
--- OUTSIDE RECORDS SUMMARY | ~2019-05-17 | XMS | Encounter Summary ---
Demographics + + + | Address | [address] | | | [place] [address] | + + + | Home Phone | | + + + | Preferred Language | Unknown | + + + | Marital Status | | + + + | Islam Affiliation | 1077 | + + + | Race | Unknown | + + + | Ethnic Group | Unknown | + + + Author + + + | Author | [facility] | | | and Azana | + + + | Organization | [facility] | | [...] [place], [place] | | | | | [address] | | + + + + + | Helena Doherty | ECON | [place], | | | | | [place] [address] | | + + + + + Care Team Providers + +------+ + | Care Corporate Scheduler Name | Role | Phone | + [...] | | Services | | Lumbar | [place], | MD [address] | | | Required | | foraminal | [place], | [address] | | | | | stenosis | PA-C [address] | [place], [place] | | | | | Facet | [address] | [address] | | | | | arthritis of | [place], [place] | Phone: | | | | | lumbar | [address] | [phone] | | | | | region | Phone: | Fax: | | | | | Lumbar | [phone] | [phone] | | | | | radiculopath | Fax: | | | | | | y | [phone] | | | | | | Degenerative | | | | | | | disc | | | | | | | disease, | | | | | | | lumbar | | | +--------+ + + + + + Reason for Visit + + + | Reason | Comments | + + + | Referral | | + + + Encounter Details +--------+ + + + + | Date | Type | Department | Care Team | Description | +--------+ + + + + | 09/18/ | Telephone | [facility] [place] | Fay, | Referral | | 2016 | | PHYSIATRY [address] | [address]IAN Castillo [address] | | | | | [place], | [place], | | | | | [place] [address] | [place] [address] | | | | | [phone] | [phone] | | | | | | | [...] | Encounter | | [address] | | | | | | [address] [place] | | | | | | [place] [address] | | | | | | [phone] | | | | | | | | | | | | Linotypist, [facility] | | +--------+ + + + + + + +--------+ + + | Name | Type | Priori | Associated Diagnoses | Order Schedule | | | | ty | | | + + +--------+ + + | AMB REFERRAL TO G | Outpatient | Routin | Lumbar foraminal | Ordered: 09/19/2016 | | [facility] | Referral | e | stenosis Facet | | | | | | arthritis of lumbar | | | | | | region ([facility]) Lumbar | | | | | | radiculopathy | | | | | | DEGENERATIVE DISC | | | | | | DISEASE, LUMBAR | | | | | | SPINE | | + + +--------+ + + documented as of this encounter Visit Diagnoses + + | Diagnosis | + + | Lumbar foraminal stenosis - Primary Spinal stenosis, lumbar region, without | | neurogenic claudication | + + | 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
--- OUTSIDE RECORDS SUMMARY | ~2019-05-17 | XMS | Encounter Summary ---
Demographics + + + | Address | [address] | | | [place] [address] | + + + | Home Phone | | + + + | Preferred Language | Unknown | + + + | Marital Status | | + + + | Mandaeism Affiliation | 1077 | + + + | Race | Unknown | + + + | Ethnic Group | Unknown | + + + Author + + + | Author | [facility] | | | and Azana | + + + | Organization | [facility] | | | and [...] [place], [place] | | | | | [address] | | + + + + + | Helena Doherty | ECON | [place], | | | | | [place] [address] | | + + + + + Care Team Providers + +------+ + | Care Quirk Sander Name | Role | Phone | + [...] | Degenerative | [address] | [place], [place] | | | | | disc | [place] | [address] Phone: | | | | | disease, | [address] | [phone] | | | | | lumbar | Phone: | Fax: | | | | | Lumbar | [phone] | [phone] | | | | | foraminal | Fax: | | | | | | stenosis | [phone] | | | | | | Fibromyalgia [...] Description | +--------+---------+ + + + | 12/05/ | Office | [facility] | Fay, | Fibromyalgia; | | 2016 | Visit | [facility] TH[facility]APY PT | [address] Castillo [address] | Sacroiliitis (HCC) | | | | OP [address] | [facility], | | | | | [place] | [place] [address] | | | | | [address] | [phone] | | | | | [phone] | | | | | | | Aiyana Fish S, PT | | | | | | [address] | | | | | | [place] | | | | | | [id number] | | | | | | | [...] encounter Progress Notes Aiyana Fish, PT - 12/05/2016 1:00 PM PDTFormatting of this note might be different fro m the original. [facility] CTR THERAPY PT OP [address] [place] [address] Physical Therapy Daily Treatment Note Date: 12/05/2016 Patient Information Patient Name: Ashly Santiago Date of : 1940 Age: 76 y.o. Encounter Diagnoses Code Name Primary? M79.7 Fibromyalgia M46.1 Sacroiliitis (HCC) Date of Onset: 06/08/2016 Referring Provider: Anna Aponte PA-C Rehab Precautions Flowsheet Row Office Visit from 10/19/2016 in [facility] CTR THERAPY PT OP Rehab Precautions Precautions None Rehab Learning Style Flowsheet Row Office Visit from 10/19/2016 in [facility] CTR THERAPY PT OP Learning Style Patient's Optimum Learning Style listening, reading, observation, performance of task Start Time: 1307 Stop time: 1405 Duration: 58 minutes Timed Treatment Codes: 58 minutes # of PT Visits to Date: 4 Subjective: Pt reports that she moved some things around the house and she got sore after that, but no leg pain. Pain Assessment: Pain Rating Pre Assessment: 4 Location: mid thoracic spine right flank Objective: Exercise:: Pt was given the morning routine of yoga stretches for home use. Page 1 only. Manual Treatment: Myofascial release and positional release therapy to multiple areas with emphasis on major fascial strain pattern in the right neck, left mid thoracic spine and left hip Assessment: Good response to treatment. Fascial release resulted in improved mobility in the hips And lower back without pain following the session. Her gait is normal without antalgia. She i s not demonstrating any pain behaviors like she was when we started. Plan: Continue with manual therapy and development of home program. Progress with yoga stretches as tolerated. Electronically signed by: Aiyana Fish, PT, 12/05/2016 14:24 Patient Name: Ashly Santiago/: 1940/ documented in this en counter Plan of Treatment +--------+ + + + + | Date | Type | Specialty | Care Team | Description | +--------+ + + + + | 05/19/ | Hospital | Radiology | Dennys Pineda PA-C | | | 2018 | Encounter | | [address] [facility] | | | | | | [address] | | | | | | [place] [address] | | | | | | [phone] | | | | | | | | | | | | Optical DesignerNaomi | | +--------+ + + + + documented as of this encounter Visit Diagnoses + + | Diagnosis | + + | Fibromyalgia Mylagia and myositis, unspecified | + + | Sacroiliitis (HCC) Sacroiliitis, not elsewhere classified | + + documented in this encounter"
--- OUTSIDE RECORDS SUMMARY | ~2019-05-17 | XMS | Encounter Summary ---
Demographics + + + | Address | [address] [facility] [facility] | | | [place] [address] | + + + | Home Phone | | + + + | Preferred Language | Unknown | + + + | Marital Status | | + + + | Evangelical Affiliation | 1077 | + + + | Race | Unknown | + + + | Ethnic Group | Unknown | + + + Author + + + | Author | [facility] | | | and Azana | + + + | Organization | [facility] | | | and [...] [place], [place] | | | | | [address] | | + + + + + | Helena Doherty | ECON | [place], | | | | | [place] [address] | | + + + + + Care Team Providers + +------+ + | Care Intervention Manager Name | Role | Phone | + +------+ + | Nathan Luevano DO | PCP | | + +------+ + Reason for Visit Service/Procedure (Routine) +--------+--------+ + + + + | Status | Reason | Specialty | Diagnoses / | Referred By | Referred To | | | | | Procedures | Contact | Contact | +--------+--------+ + + + + | Closed | | Radiology | Diagnoses | | [facility] | | | | | Cervical | [place], | [address] | | | | | radiculopath | Osman Price MD | [place], | | | | | y | [address] | [place] | | | | | Procedures | [place] | [address] | | | | | [place] | [place], [place] | Phone: | | | | | DX/THER SBST | [address] | [phone] | | | | | INTRLMNR | Phone: | Fax: | | | | | CRV/THRC | [phone] | [phone] | | | | | W/IMG GDN | Fax: | | | | | | [place] | [phone] | | | | | | TRIAMCINOLON | | | | | | | E ACET INJ | | | | | | | NOS, 10 MG | | | | | | | Appt | | | | | | | 12/20/2017 | | | | | | | C7-T1 ILESI | | | +--------+--------+ + + + + Encounter Details +--------+ + + + + | Date | Type | Department | Care Team | Description | +--------+ + + + + | 12/20/ | Hospital | [facility] | [place], | Cervical | | 2018 | Encounter | MED CTR XRAY [address] | FABIAN Castillo [address] | radiculopathy; | | | | [address] [place] | SETH LUM[place]EE, | DEGENERATIVE DISC | | | | [place] [address] | [place] [address] | DISEASE, CERVICAL | | | | [phone] | [phone] | SPINE | | | | | | | | | | | Corporate SecretaryNaomi | | +--------+ + + + + [...] this encounter Last Filed Vital Signs + +---------+ + + | Vital Sign | Reading | Time Taken | Comments | + +---------+ + + | Blood Pressure | 145/77 | 12/20/2017 5:12 PM | | | | | PDT | | + +---------+ + + | Pulse | - | - | | + +---------+ + + | Temperature | - | - | | + +---------+ + + | Respiratory Rate | - | - | | + +---------+ + + | Oxygen Saturation | - | - | | + +---------+ + + | Inhaled Oxygen | - | - | | | Concentration | | | | + +---------+ + + | Weight | - | - | | + +---------+ + + | Height | - | - | | + +---------+ + + | Body Mass Index | - | - | | + +---------+ + + documented in this encounter Medications [...] mg by mouth | | 0 | / | | | tablet | Daily. | [...] [place] | | | | | | [place] [address] | | | | | | [phone] | | | | | | | | | | | | Corporate SecretaryNaomi | | +--------+ + + + + documented as of this encounter Procedures + +--------+ + + + | Procedure Name | Priori | Date/Time | Associated Diagnosis | Comments | | | ty | | | | + +--------+ + + + | FL EPIDURAL STEROID | Routin | 12/20/2017 | Cervical | Results for this | | INJ CERVICAL | e | 4:50 PM | radiculopathy | procedure are in the | | THORACIC | | PDT | DEGENERATIVE DISC | results section. | | INTERLAMINAR | | | DISEASE, CERVICAL | | | | | | SPINE | | + +--------+ + + + documented in this encounter Results FL ROCK Cervical Thoracic [...] + + | Performing | Address | City/State[facility] | Phone Number | | Organization | | | | + +---------+ + + | [facility] | | | | + +---------+ + + documented in this encounter Visit Diagnoses + + | Diagnosis | + + | Cervical radiculopathy Brachial neuritis or radiculitis nos | + + | DEGENERATIVE DISC DISEASE, CERVICAL SPINE Degeneration of cervical intervertebral | | disc | + + documented in this encounter Administered Medications + +--------+ +-------+------+------+ | Medication Order | MAR | Action | Dose | Rate | Site | | | Action | Date | | | | + +--------+ +-------+------+------+ | dexamethasone (PF) 10 mg/mL | Given | 12/21/19 | 10 mg | | | | injection 10 mg 10 mg, Other, | | 18 5:00 | | | | | ONCE, Agustina 12/20/17 at 1700, For 1 | | PM PDT | | | | | dose | | | | | | + +--------+ +-------+------+------+ +---+---+ | | | +---+---+ + +-------+ +-------+---+---+ | iohexol (OMNIPAQUE 300) 300 | Given | 12/21/19 | 4 mLs | | | | mg/mL injection 4 mL 4 mL, | | 18 4:58 | | | | | Other, ONCE, Agustina 12/20/17 at 1700, | | PM PDT | | | | | For 1 dose | | | | | | + +-------+ +-------+---+---+ +---+---+ | | | +---+---+ + +-------+ +-------+---+ + | lidocaine buffered 1.3% | Given | 12/21/19 | 3 mLs | | Other | | injection 3 mL 3 mL, | | 18 4:56 | | | (Comment | | Intradermal, ONCE, [facility] 12/20/17 at | | PM PDT | | | ) | | 1700, For 1 dose | | | | | | + +-------+ +-------+---+ + +---+---+ | | | +---+---+ documented in this encounter"
--- OUTSIDE RECORDS SUMMARY | ~2019-05-17 | XMS | Encounter Summary ---
Demographics + + + | Address | [address] [facility] [facility] | | | [place] [address] | + + + | Home Phone | | + + + | Preferred Language | Unknown | + + + | Marital Status | | + + + | Evangelical Affiliation | Unknown | + + + | Race | White | + + + | Ethnic Group | Not or | + + + Author + + + | Author | [facility] | + + + | Organization | [facility] | + + + | Address | Unknown | + + + | Phone | Unavailable | + + + Support + + +---------+ + | Name | Relationship | Address | Phone | + + +---------+ + | Alon Santiago | ECON | Unknown | | + + +---------+ + Care Team Providers + +------+ + | Care Sleep Technician Name | Role | Phone | + +------+ + | Thee Boss MD | PCP | | + +------+ + Encounter Details +--------+ + + + + | Date | Type | Department | Care Team | Description | +--------+ + + + + | 05/18/ | MyChart | Rheumatology at | Tavia Zuniga | RE: Changes in my | | 2012 | Encounter | Physicians [place] [facility]ung [address] | medications listing | | | | [address] | [address] | | | | | Amara Chatman Mailcode: | [place], [place] | | | | | [address] Physician's | [address] | | | | | [address], [address] Floor | [phone] | | | | | [place], [place] | | | | | | [address] | | | | | | [phone] | | | +--------+ + + + [...]
--- OUTSIDE RECORDS SUMMARY | ~2019-05-17 | XMS | Encounter Summary ---
Demographics + + + | Address | [address] [facility] | | | [place] [address] | + + + | Home Phone [...] | Author | [facility] | | | and Azana | + + + | Organization | [facility] | | | and [...] [place], [place] | | | | | [address] | | + + + + + | Helena Doherty | ECON | [place], | | | | | [place] [address] | | + + + + + Care Team Providers + +------+ + | Care Enologist Name | Role | Phone | + [...] + | 03/20/ | Telephone | [facility] | Agusto Pereira MD | Referral (PT | | 2017 | | NEUROSURGERY [address] | [address] | referral) | | | | [facility] [address] | [place] [address] | | | | | [place] | [phone] | | | | | [address] | | | | | | [phone] | | | +--------+ + + + [...] | | | | | | [place] [address] | | | | | | [phone] | | | | | | | | | | | | Risk Control AnalystNaomi | | +--------+ + + + + documented as of this encounter Visit Diagnoses Not on filedocumented in this encounter"
--- OUTSIDE RECORDS SUMMARY | ~2019-05-17 | XMS | Encounter Summary ---
Demographics + + + | Address | [address] [facility] | | | [place] [address] | + + + | Home Phone | | + + + | Preferred Language | Unknown | + + + | Marital Status | | + + + | Episcopal Affiliation | Unknown | + + + [...] Team Providers + +------+ + | Care Bed Setter Name | Role | Phone | + +------+ + | Thee Boss MD | PCP | | + +------+ + Reason for Visit + + + | Reason | Comments | + + + | RA - Rheumatoid | | | arthritis | | + + + Office Visit - E/M Services (Routine) +--------+--------+ + + + + | Status | Reason | Specialty | Diagnoses / | Referred By | Referred To | | | | | Procedures | Contact | Contact | +--------+--------+ + + + + | Closed | | Rheumatology | Diagnoses | | Alo, | | | | | Rheumatoid | Eleazar, | MD Colt | | | | | arthritis(71 | Sophia K, | [address] | | | | | 4.0) ([facility]) | [place] [address] | [address] | | | | | Myalgia and | [address] Ad[address] | [address] [place], | | | | | myositis, | [place], | [place] | | | | | unspecified | [place] [address] | [address] | | | | | Procedures | Phone: | Phone: | | | | | [place] | [phone] | [phone] | | | | | OFFICE/OUTPT | Fax: | Fax: | | | | | | [phone] | [phone] | | | | | VISIT,EST,LE | | | | | | | PASQUALE III | | | +--------+--------+ + + + + Encounter Details +--------+---------+ + + + | Date | Type | Department | Care Team | Description | +--------+---------+ + + + | 09/08/ | Office | Rheumatology at | Rosas Lucia MD | Rheumatoid arthritis | | 2015 | Visit | Physicians [place] | [address] | (Primary Dx) | | | | [address] | [address] [place], | | | | | Celina Compa Mailcode: | [place] [address] | | | | | [address] Physician's | [phone] | | | | | [address], [address] Floor | | | | | | [place], [place] | | | | | | [address] | | | | | | [phone] | | | +--------+---------+ + + + [...] + + + | Blood Pressure | 146/64 | 09/08/2014 10:52 AM | | | | | PDT | | + + + + + | Pulse | 70 | 09/08/2014 10:52 AM | | | | | PDT [...] Weight | 92.1 kg (203 lb) | 09/08/2014 10:52 AM | | | | | PDT | | + + + + + | Height | 165.1 cm (5' 5") | 09/08/2014 10:52 AM | | | | | PDT | | + + + + + | Body Mass Index | 33.78 | 09/08/2014 10:52 AM | | | | | PDT | | + + + + + documented in this encounter Progress Notes Rosas Lucia MD - 09/08/2014 10:49 AM PDTFormatting of this note might be different from t toby original. RHEUMATOLOGY NEW PATIENT CONSULT This consultation was requested by: Tavia Linda, LEGAL ENTITY CONTROLLER [address] [place] [address] fax: [phone] CC: joint pain HPI: Ms Santiago is a 73 y.o. female, here for consultation from regarding diagnosis, and pos sible change in therapy for joint pain. She has had joint pain for the past 10-15 years ago and has worsened recently in the past couple of years. Her PCP diagnosed her with RA on the basis of labs but Dr Shelton, who was her Upsetter Helper, was not sure if the symptoms were from RA. She has been taking methotrexate and Plaquenil. She feels that it has helped and f eels that the only way to be sure will be to discontinue it. She was doing fine till November and then she started having pain in the knees and difficulty i n getting up and down the stairs. The neck wais stiff all the time but not painful. She had a shot for the right shoulder pain and it helped the neck too. She does not feel any spasm a round the neck. It does not hurt to move it in all directions. There are no radicular pain a nd the pain is more like a dull ache. The knee has a torn meniscus. These become better with steroid shots. The pain is worse when she goes up and down. Rest helps. She is stiff for 05 -1 hour in the morning. She has pain on the side of the right hip. The base of the thumb tanesha ts but is better today. Other joints are painful randomly. She is taking methotrexate 10 mg a week and Plaquenil 400 mg a day. She had surgery for a trigger finger last week. She is tired all the time and is less tender to the touch. She hurts all over in the muscle s and the joints. Sleep is not refreshing. She does not have much headaches. She has a brain fog. She gets pain randomly in different areas all the time. The muscles ache all the time. She used prednisone in the past and made her depressed and she gained weight. She does not know if it helped her with the pain. I reviewed the patient's records. Pertinent details are: joint pain ROS: scanned in Epic PMH: Past Medical History Diagnosis Date Fibromyalgia Arthropathy, unspecified, site unspecified Other general symptoms(780.99) IBS (irritable bowel syndrome) HTN (hypertension), benign Endometriosis Melanoma PSH: Past Surgical History Procedure Laterality Date Laparotomy 1959 Pr foot/toes surgery proc unlisted Appendectomy Cataract removal Hysterectomy with ovaries age 32 Retinal detachment repair Repair of cystocele and rectocele Bunion surgery Cholecystectomy Meds: Current Outpatient Prescriptions Medication Sig Ascorbic Acid [...] have any smokeless tobacco history on file. Vaccinations: There is no immunization history on file for this patient. FH: family history includes Additional Family History in her father (Parkinson's); Arthriti s in her sister; Heart Disease in her mother; and Stroke in her mother. Rapid 3 Exam: Vital Signs: BP 146/64 | Pulse 70 | Ht 1.651 m (5' 5") | Wt 92.08 kg (203 lb) | BMI 3 3.78 kg/(m^2) Pain Score: Gen: Well nourished, well developed, in NAD HEENT: PERRLA, EOMI, O/P clear, no facial rash or alopecia Neck: supple, no lymphadenopathy, FROM Ext: no clubbing, cyanosis or edema M/S: no synovitis; diffuse joint tenderness excluding the DIP in the hands, full ROM throug hout joints of upper and lower extremities Skin: no abnormalities Lab Results Component Value Date ESR 25 04/07/2013 Impression: This is a 73 y.o. female, here for evaluation of joint pain. She has history of fibromyalgia and joint pain. She has been receiving methotrexate and plaquenil for nearly t wo years. She is doing well from the RA perspective. The duration of morning stiffness has d eclined significantly and there is less pain. There is no synovitis on exam. She does not quach ve any extra-articular features of RA. She can discontinue Plaquenil now. Plan: I reviewed the patient s questionnaire which included more than 10 review of systems. I s pent 20 minutes [id number] with the patient with over 50% in counseling the patient regard ing joint pain. Orders Placed This Encounter CBC, W/ DIFF Complete Metabolic Panel CBC Q8 Weeks - Exernal CMP Q8 Weeks - External Continue current medications. Review in 24 weeks. docu mented in this encounter Plan of Treatment Not on filedocumented as of this encounter Results COMPLETE METABOLIC SET (NA,K,CL,CO2,BUN,CREAT,GLUC,CA,AST,ALT,BILI TOTAL,ALK PHOS,ALB,PROT TOTAL) (09/08/2014 11:35 AM PDT) + +---------+ + + + [...] + + + | BUN, PLASMA | 28 (H) | 6 - 20 mg/dL | [...] | | | LABORATORY | | | JAPANESE | | | SERVICES, | | | | | | CORE | | + +---------+ + + + | EGFR NON | >60 | >60 mL/min | [facility] | | | -REI | | | LABORATORY | | | RICAN | | | SERVICES, | | | | | | CORE | | + +---------+ + + + | SODIUM, | 143 | 136 - 145 | [facility] | | | PLASMA | | mmol/L | LABORATORY | | | (LAB) | | | SERVICES, | | | | | | CORE | | + +---------+ + + + | POTASSIUM, | 3.7 | 3.4 - 5.0 | [facility] | [...] +---------+ + + + | CALCIUM, | 9.3 | 8.6 - 10.2 | [facility] | [...] +---------+ + + + | TOTAL | 6.8 | 6.4 - 8.2 g/dL | [facility] | | | PROTEIN, | | | LABORATORY | | | PLASMA | | | SERVICES, | | | (LAB) | | | CORE | | + +---------+ + + + | ALBUMIN, | 3.6 | 3.5 - 4.7 g/dL | [facility] | | | PLASMA | | | LABORATORY | | | (LAB) | | | SERVICES, | | | | | | CORE | | + +---------+ + + + | ALK PHOS | 82 | 53 - 141 U/L | [facility] | | | | | | LABORATORY | | | | | | SERVICES, | | | | | | CORE | | + +---------+ + + + | AST(SGOT) | 20 | <=41 U/L | [facility] | | | | | | LABORATORY | | | | | | SERVICES, | | | | | | CORE | | + +---------+ + + + | ALT (SGPT) | 25 | <=60 U/L | [facility] | | | | | | LABORATORY | | | | | | SERVICES, | | | | | | CORE | | + +---------+ + + + | ANION | 7 | 4 - 11 mmol/L | [facility] [...] | + + + + + | [facility] | [address] | [place] [address] | | | SERVICES, CORE | [address] | | | + + + + + documented in this encounter Visit Diagnoses + + | Diagnosis | + + | Rheumatoid arthritis - Primary | + + documented in this encounter
--- OUTSIDE RECORDS SUMMARY | ~2019-05-17 | XMS | Encounter Summary ---
Demographics + + + | Address | [address] [facility] | | | [place] [address] | + + + | Home Phone | | + + + | Preferred Language | Unknown | + + + | Marital Status | | + + + | Yazidi Affiliation | 1077 | + + + | Race | Unknown | + + + | Ethnic Group | Unknown | + + + Author + + + | Author | [facility] | | | and Azana | + + + | Organization | [facility] | | | and Azana [...] [place], [place] | | | | | [address] | | + + + + + | Helena Doherty | ECON | [place], | | | | | [place] [address] | | + + + + + Care Team Providers + +------+ + | Care Spice [employer] Name | Role | Phone | + +------+ + | Nathan Luevano DO | PCP | | + +------+ + Reason for Visit + + + | Reason | Comments | + + + | Medication Follow-up | | + + + Encounter Details +--------+ + + + + | Date | Type | Department | Care Team | Description | +--------+ + + + + | 09/24/ | Telephone | [facility] | Joshua Hilliard MD | Medication Follow-up | | 2019 | | GASTROENTEROLOGY | [address] [place], [place] | | | | | [address] [place] | [address] [place] [address] | | | | | [address] [place], [place] | [address] | | | | | [address] | | | | | | [phone] | | | +--------+ + + + [...] | | | | | | [place] [id number] | | | | | | [phone] | | | | | | | | | | | | Assistant Office ManagerNaomi | | +--------+ + + + + documented as of this encounter Visit Diagnoses Not on filedocumented in this encounter"
--- OUTSIDE RECORDS SUMMARY | ~2019-05-17 | XMS | Encounter Summary ---
Demographics + + + | Address | [address] [facility] | | | [place] [address] | + + + | Home Phone | | + + + | Preferred Language | Unknown | + + + | Marital Status | | + + + | Protestant Affiliation | Unknown | + + + [...] Team Providers + +------+ + | Care Slot Machine Mechanic Name | Role | Phone | + [...] | | | Amara Chatman Mailcode: | [place], [place] | | | | | [address] Physician's | [address] | | | | | [address], [facility] | [phone] | | | | | [place], [place] | | | | | | [address] | | | | | | [phone] | | | +--------+ + + + [...]
--- OUTSIDE RECORDS SUMMARY | ~2019-05-17 | XMS | Encounter Summary ---
Demographics + + + | Address | [address] | | | [place] [address] | + + + | Home Phone | | + + + | Preferred Language | Unknown | + + + | Marital Status | | + + + | Congregation Affiliation | Unknown | + + + | Race | White | + + + | Ethnic Group | Not or | + + + Author + + + | Author | [facility] | + + + | Organization | [facility] | + + + | Address | Unknown | + + + | Phone | Unavailable | + + + Support + + +---------+ + | Name | Relationship | Address | Phone | + + +---------+ + | Alon Santiago | ECON | Unknown | | + + +---------+ + Care Team Providers + +------+ + | Care Fruit And Vegetable Parer Name | Role | Phone | + +------+ + | Thee Boss MD | PCP | | + +------+ + Encounter Details +--------+ + + + + | Date | Type | Department | Care Team | Description | +--------+ + + + + | 05/15/ | Telephone | Rheumatology at | Rosas Lucia MD | | | 2012 | | [place] | [address] [facility] | | | | | [address] | [address] [place], | | | | | Amara Chatman Mailcode: | [place] [address] | | | | | [address] Physician's | [phone] | | | | | [address], [address] | | | | | | [place], [place] | | | | | | [address] | | | | | | [phone] | | | +--------+ + + + [...]
--- OUTSIDE RECORDS SUMMARY | ~2019-05-17 | XMS | Encounter Summary ---
Demographics + + + | Address | [address] [facility] | | | [place] [address] | + + + | Home Phone | | + + + | Preferred Language | Unknown | + + + | Marital Status | | + + + | Druze Affiliation | 1077 | + + + | Race | Unknown | + + + | Ethnic Group | Unknown | + + + Author + + + | Author | [facility] | | | and Azana | + + + | Organization | [facility] | | | and Azana | + + + | Address | Unknown | + + + | Phone | Unavailable | + + + Support + + + + + | Name | Relationship | Address | Phone | + + + + + | Alon Santiago | KATERIN | [address] | | | | | [place], [place] | | | | | [address] | | + + + + + | Helena Doherty | ECON | [place], | | | | | [place] [address] | | + + + + + Care Team Providers + +------+ + | Care Interactive Project Manager Name | Role | Phone | [...] | +--------+ + + + + | 10/07/ | Telephone | [facility] | Andrew Miranda, | Kemar | | 2019 | | PHYSIATRY [address] | PA-C [address] | | | | | [place], | [address] [place] | | | | | [place] [address] | [place] [address] | | | | | [phone] | [phone] | | | | | | | [...] | | | | | [place] [address] | | | | | | [phone] | | | | | | | | | | | | Taper Printed Circuit LayoutNaomi | | +--------+ + + + + documented as of this encounter Visit Diagnoses Not on filedocumented in this encounter"
--- OUTSIDE RECORDS SUMMARY | ~2019-05-17 | XMS | Encounter Summary ---
Demographics + + + | Address | [address] | | | [place] [address] | + + + | Home Phone | | + + + | Preferred Language | Unknown | + + + | Marital Status | | + + + | Mu-Ism Affiliation | 1077 | + + + | Race | Unknown | + + + | Ethnic Group | Unknown | + + + Author + + + | Author | [facility] | | | and Azana | + + + | Organization | [facility] | | [...] [place], [place] | | | | | [address] | | + + + + + | Helena Doherty | ECON | [place], | | | | | [place] [address] | | + + + + + Care Team Providers + +------+ + | Care Quality Process Auditor Name | Role | Phone | + +------+ + | Thee Boss MD | PCP | | + +------+ + Reason for Visit + + + | Reason | Comments | + + + | New Patient | nose bleeds chronic epixisis, patient states that she has no | | | pain, nose bleeds started 3 weeks ago | + + + Encounter Details +--------+---------+ + + + | Date | Type | Department | Care Team | Description | +--------+---------+ + + + | 09/19/ | Office | [facility] | Brendan Orlando MD | Epistaxis (Primary | | 2012 | Visit | OTOLARYNGOLOGY [address] | [address] [place] | Dx); Other diseases | | | | [address] | [address] [place], | of nasal cavity and | | | | [place], [place] | [place] [address] | sinuses | | | | [address] | [phone] | | | | | [phone] | | | +--------+---------+ + + + [...] + + + | Blood Pressure | 144/70 | 09/19/2012 10:21 AM | | | | | PDT | | + + + + + | Pulse | 84 | 09/19/2012 10:21 AM | | | | | PDT [...] + + + + | Weight | 88 kg (194 lb) | 09/19/2012 10:21 AM | | | | | PDT | | + + + + + | Height | 165.1 cm (5' 5") | 09/19/2012 10:21 AM | | | | | PDT | | + + + + + | Body Mass Index | 32.28 | 09/19/2012 10:21 AM | | | | | PDT | | + + + + + documented in this encounter Progress Notes Brendan Orlando MD - 09/19/2012 12:23 PM PDTSee dictation #[id number] signed by Maikol Orlando MD at 09/19/2012 12:28 PM Brendan Kennedy MD - 09/19/2012 12:00 AM [facility] [address] [place] [address] FAX: [phone] OFFICE VISIT NEW PATIENT VISIT HISTORY: The patient comes in because of nasal epistaxis and also 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 She is not having any other ENT complaints at the current t augie. She has had a fair amount of bleeding from the right nasal passage on and off for about the last 3 weeks, for the last 4 or 5 days she has not had any bleeding. She always has a lot of scabbing on both sides and occasionally she will have a little bit of bleeding on th e left side. No other symptoms. She takes aspirin. She has been off the aspirin for about 5 days and it seems that she has had at least less bleeding. PHYSICAL EXAMINATION GENERAL: The examination shows an alert 72-year-old female patient. She is communicating we ll. Her voice quality is good. HEENT: Skin of the face, nose, and ears all appears to be healthy. Her parotid and submand ibular glands were smooth. Facial movement symmetrical. Ear canals are open, they are clean . The drums were clear. No middle ear disease noted. Nasal passages, she has a lot of dried crusting in the left nasal passage on her Little's triangle. On the right-hand side there is dried blood. No mass or lesion seen in the nasal passages. Both sides were then sprayed w ell with some Efraín-Synephrine and topical Xylocaine. Floor of the mouth, buccal mucosa, hard palate, teeth, lips and gums were healthy. No mass seen in the oropharynx and posterior ph aryngeal wall was smooth. Tongue and soft palate are smooth and move symmetrically. NECK: There are no masses or lymphadenopathy present. Thyroid gland is smooth. Trachea is midline . Good range of motion of the neck without any pain or discomfort present. Both sides of the septum were then painted with viscous Xylocaine. Following this, silver nitrate was used to cauterize Little's triangle on both sides. The large scab on the left-quach nd side was able to be removed, and then the cautery completed on both sides. This was then cleaned well of any excess silver nitrate. PLAN: At that point the patient was given the instructions on caring for the septal area. S he should apply A and D Ointment twice a day for the next month and then each evening. The rest of the instructions were reviewed, also, with the patient, and the sheet was given to her. She will be re-seen again in 6 weeks' time to see if she is healing up the vestibuliti s that is present. If not, then a different medication will be used to try to heal it. Brendan Orlando MD / [facility] JOB #: [id number] signed by Brendan Orlando MD at 09/20/2012 8:36 AM PDTdocumente arron in this encounter Plan of Treatment +--------+ [...] DAIANA | | | | | | [place] [address] | | | | | | [phone] | | | | | | | | | | | | Cpr Ambulance DriverNaomi | | +--------+ + + + + documented as of this encounter Visit Diagnoses + + | Diagnosis | + + | Epistaxis - Primary | + + | Other diseases of nasal cavity and sinuses(478.19) Other diseases of nasal cavity and | | sinuses | + + documented in this encounter
--- OUTSIDE RECORDS SUMMARY | ~2019-05-17 | XMS | Encounter Summary ---
Demographics + + + | Address | [address] | | | [place] [address] | + + + | Home Phone | | + + + | Preferred Language | Unknown | + + + | Marital Status | | + + + | Druze Affiliation | 1077 | + + + | Race | Unknown | + + + | Ethnic Group | Unknown | + + + Author + + + | Author | [facility] | | | and Azana | + + + | Organization | [facility] [...] [place], [place] | | | | | [address] | | + + + + + | Helena Doherty | ECON | [place], | | | | | [place] [address] | | + + + + + Care Team Providers + +------+ + | Care Stamps Or Coins Salesperson Name | Role | Phone | + [...] | Cervical | [place], | [address] | | | | | radiculopath | Osman Price MD | [place], | | | | | y | [address] | [place] | | | | | Procedures | [place] | [address] | | | | | [place] | [place], [place] | Phone: | | | | | DX/THER SBST | [address] | [phone] | | | | | INTRLMNR | Phone: | Fax: | | | | | CRV/THRC | [phone] | [phone] | | | | | W/IMG GDN | Fax: | | | | | | [place] | [phone] | | | | | | TRIAMCIN[place] [...] + + | 12/20/ | Hospital | [facility] | [place], | Cervical | | 2018 | Encounter | MED CTR XRAY [address] | FABIAN Castillo [address] | radiculopathy; | | | | [address] [place] | [place], | DEGENERATIVE DISC | | | | [place] [address] | [place] [address] | DISEASE, CERVICAL | | | | [phone] | [phone] | SPINE | | | | | | | | | | | Gas Or Petroleum OperatorNaomi | | +--------+ + + + [...] [place] | | | | | | [place] [address] | | | | | | [phone] | | | | | | | | | | | | Gas Or Petroleum OperatorNaomi | | +--------+ + + + [...] + + | Performing | Address | City/State/[facility] | Phone Number | | Organization | [...] | | (Comment | | Intradermal, ONCE, [facility] 12/20/17 at | | PM PDT | | | ) | | 1700, For 1 dose | | | | | | + +-------+ +-------+---+ + +---+---+ | | | +---+---+ documented in this encounter"
--- OUTSIDE RECORDS SUMMARY | ~2019-05-17 | XMS | Clinical Summary ---
Demographics + + + | Address | [address] | | | [place] [address] | + + + | Home Phone [...] Author | Merged With [facility] | | | and [facility] | + + + | Organization | Merged With [facility] | | | and [...] [place], [place] | | | | | [address] | | + + + + + | Helena Doherty | ECON | [place], | | | | | [place] [address] | | + + + + + Care Team Providers + +------+ + | Care Harness Installer Name | Role | Phone | + +------+ + | Nathan Luevano DO | PCP | | + +------+ + Allergies + + + + + + | Active Allergy | Reactions | Severity | Noted | Comments | | | | | Date | | + + + + + + | Adhesive & Tape | Itching, Rash | Low | | | + + + + + + | Citalopram | Nausea Only | Low | 08/29/19 | | | | | | 17 | | + + + + + + | Codeine | Nausea And Vomiting, | Medium | 08/29/19 | Dizziness | | | Other (See | | 17 | | | | Comments) | | | | + + + + + + | Diclofenac | Diarrhea, Nausea | Medium | 08/30/19 | Headache, Acid | | | Only, Other (See | | 17 | reflux, Stomach | | | Comments), Headache | | | Cramping, Bloating | + + + + + + | Diltiazem | Swelling | Medium | 08/29/19 | Ankle | | | | | 17 | | + + + + + + | Duloxetine | Other (See Comments) | Low | 08/29/19 | Hot flashes | | | | | 17 | | + + + + + + | Escitalopram | Nausea Only | Low | 08/29/19 | | | | | | 17 | | + + + + + + | Esomeprazole | Nausea Only | Low | 04/07/20 | | | | | | 13 | | + + + + + + | Gabapentin | Nausea Only, Nausea | Low | 02/15/20 | | | | And Vomiting | | 17 | | + + + + + + | Hydromorphone | Nausea Only | Low | 08/29/19 | | | | | | 17 | | + + + + + + | Isosorbide Dinitrate | Other (See Comments) | Low | 05/02/20 | Dizziness, | | | | | 17 | headache | + + + + + + | Isosorbide | Nausea Only, Other | Medium | 03/04/20 | Headache, | | Mononitrate | (See Comments) | | 18 | Dizziness | + + + + + + | Latex | | | 11/13/19 | Added based on | | | | | 19 | information entered | | | | | | during case entry, | | | | | | please review and | | | | | | add reactions, type, | | | | | | and severity as | | | | | | needed | + + + + + + | Misoprostol | Diarrhea, Nausea | Medium | 08/30/19 | Headache, Acid | | | Only, Other (See | | 17 | reflux, Stomach | | | Comments) | | | Cramping, Bloating | + + + + + + | Morphine | Nausea And Vomiting | Low | 08/29/19 | | | | | | 17 | | + + + + + + | Morphine Sulfate | Nausea Only | Low | | | + + + + + + | Oxycodone | Nausea Only, Nausea | Low | 08/29/19 | | | | And Vomiting | | 17 | | + + + + + + | Pregabalin | Swelling | Low | 10/06/19 | Ankles | | | | | 15 | | + + + + + + | Solifenacin | Other (See Comments) | Low | 05/02/20 | Reaction: Choking | | | | | 17 | | + + + + + + | Tramadol | Nausea Only, Other | High | 08/29/19 | Insomnia, | | | (See Comments), | | 17 | "alternating | | | Anxiety | | | sweating and cold | | | | | | spells, a week of | | | | | | withdrawal symptoms" | + + + + + + | Valdecoxib | Nausea Only, Other | Medium | 11/06/19 | Dizziness | | | (See Comments) | | 19 | | + + + + + + Medications + + + +---------+------+------+-------+ | Medication | Sig | Dispensed | Refills | Star | End | Statu | | | | | | t | Date | s | | | | | | Date | | | + + + +---------+------+------+-------+ | methotrexate 2.5 | Take 10 mg by mouth | | 0 | | | Activ | | mg tablet | Once a week. | | | | | e | + + + +---------+------+------+-------+ | hydroxychloroquine | Take 200 mg by mouth | | 0 | | | Activ | | (PLAQUENIL) 200 mg | Daily. | | | | | e | | tablet | | | | | | | + + + +---------+------+------+-------+ | Nutritional | Take 1 tablet by | | 0 | | | Activ | | Supplements | mouth Daily. | | | | | e | | (ESTROVEN PO) | | | | | | | + + + +---------+------+------+-------+ | diclofenac | Apply 1 g topically | | 0 | | | Activ | | (VOLTAREN) 1% GEL | 2 times daily. | | | | | e | + + + +---------+------+------+-------+ | | Take 1 tablet by | | 0 | | | Activ | | losartan-hydrochloro | mouth Daily. | | | | | e | | thiazide (HYZAAR) | | | | | | | | 50-12.5 MG per | | | | | | | | tablet | | | | | | | + + + +---------+------+------+-------+ | NALTREXONE HCL PO | Take 5 mg by mouth | | 0 | | | Activ | | | Daily. | | | | | e | + + + +---------+------+------+-------+ | LYSINE PO | Take 50 mg by mouth | | 0 | | | Activ | | | Daily. L-Lysine 50 | | | | | e | | | mg daily | | | | | | + + + +---------+------+------+-------+ | raNITIdine | Take 150 mg by mouth | | 0 | | | Activ | | (ZANTAC) 150 mg | 2 times daily. | | | | | e | | tablet | | | | | | | + + + +---------+------+------+-------+ | | Take 1 capsule by | | 0 | | | Activ | | Diphenhydramine-APAP | mouth nightly. | | | | | e | | , sleep, (TYLENOL PM | | | | | | | | EXTRA STRENGTH PO) | | | | | | | + + + +---------+------+------+-------+ | MYRBETRIQ 50 MG ER | Take 50 mg by mouth | | 0 | 05/1 | | Activ | | tablet | Daily. | | | 820 | | e | | | | | | 18 | | | + + + +---------+------+------+-------+ | trospium 20 MG | Take 20 mg by mouth | | 1 | 03/0 | | Activ | | tablet | 2 times daily. | | | 20 | | e | | | | | | 19 | | | + + + +---------+------+------+-------+ | Probiotic Product | Take 1 tablet by | | 0 | | | Activ | | (ALIGN PO) | mouth Daily. | | | | | e | + + + +---------+------+------+-------+ | cyanocobalamin | Take 1,000 mcg by | | 0 | | | Activ | | (VITAMIN B-12) 1000 | mouth Daily. | | | | | e | | MCG tablet | | | | | | | + + + +---------+------+------+-------+ | fexofenadine | Take 180 mg by mouth | | 0 | | | Activ | | (CASI ALLERGY) | Daily. | | | | | e | | 180 mg tablet | | | | | | | + + + +---------+------+------+-------+ | Cholecalciferol | Take 5,000 Units by | | 0 | | | Activ | | (VITAMIN D3 PO) | mouth Daily. | | | | | e | + + + +---------+------+------+-------+ | Emollient (DERMEND | Apply topically | | 0 | | | Activ | | BRUISE FORMULA EX) | Twice a week. | | | | | e | + + + +---------+------+------+-------+ | folic acid | Take 400 mcg by | | 0 | | | Activ | | (FOLVITE) 400 MCG | mouth Daily. | | | | | e | | tablet | | | | | | | + + + +---------+------+------+-------+ | Magnesium Citrate | Take 1 tablet by | | 0 | | | Activ | | 100 MG TABS | mouth Daily. | | | | | e | + + + +---------+------+------+-------+ | talc (ZEASORB) | Apply topically as | | 0 | | | Activ | | powder | needed for Skin | | | | | e | | | Care. | | | | | | + + + +---------+------+------+-------+ | UNABLE TO FIND | as needed (As needed | | 0 | | | Activ | | | for leg cramps). | | | | | e | | | Med Name: TheraWorx | | | | | | | | Foam [place] | | | | | | + + + +---------+------+------+-------+ | BIOTIN 5000 PO | Take 1 tablet by | | 0 | | 04/25 | Disco | | | mouth Daily. | | | | 20 | ntinu | | | | | | | 19 | ed | | | | | | | | (Ther | | | | | | | | apy | | | | | | | | compl | | | | | | | | eted) | + + + +---------+------+------+-------+ | Cholecalciferol | Take 2,000 Units by | | 0 | | 04/25 | Disco | | (VITAMIN D-3) 2000 | mouth Daily. | | | | /20 | ntinu | | units CAPS | | | | | 19 | ed | | | | | | | | (Dose | | | | | | | | | | | | | | | | adjus | | | | | | | | tment | | | | | | | | ) | + + + +---------+------+------+-------+ | folic acid 1 mg | Take 1 mg by mouth | | 0 | | 04/25 | Disco | | tablet | Daily. | | | | 20 | ntinu | | | | | | | 19 | ed | | | | | | | | (Dose | | | | | | | | | | | | | | | | adjus | | | | | | | | tment | | | | | | | | ) | + + + +---------+------+------+-------+ | Cyanocobalamin | Take 1,000 mcg by | | 0 | | 04/25 | Disco | | (VITAMIN B 12 PO) | mouth Daily. | | | | 20 | ntinu | | | | | | | 19 | ed | | | | | | | | (Dupl | | | | | | | | icate | | | | | | | | | | | | | | | | Entry | | | | | | | | ) | + + + +---------+------+------+-------+ | Multiple | Take by mouth. | | 0 | | 04/25 | Disco | | Vitamins-Minerals | | | | | 20 | ntinu | | (PRESERVISION AREDS | | | | | 19 | ed | | PO) | | | | | | (Ther | | | | | | | | apy | | | | | | | | compl | | | | | | | | eted) | + + + +---------+------+------+-------+ | acetaminophen | Take 500 mg by mouth | | 0 | | 11/1 | Disco | | (TYLENOL) 500 mg | every 6 (six) hours | | | | 1/20 | ntinu | | tablet | as needed for Pain. | | | | 19 | ed | | | | | | | | (Ther | | | | | | | | apy | | | | | | | | compl | | | | | | | | eted) | + + + +---------+------+------+-------+ | Diclofenac Sodium | Place onto the | | 0 | | 11/1 | Disco | | 1.6 % GEL | skin. | | | | 1/20 | ntinu | | | | | | | 19 | ed | | | | | | | | (Dose | | | | | | | | | | | | | | | | adjus | | | | | | | | tment | | | | | | | | ) | + + + +---------+------+------+-------+ | UNABLE TO FIND | | | 3 | 04/1 | 11/1 | Disco | | | | | | 5/20 | 07/14 | ntinu | | | | | | 19 | 19 | ed | | | | | | | | (Ther | | | | | | | | apy | | | | | | | | compl | | | | | | | | eted) | + + + +---------+------+------+-------+ Active Problems + + + | Problem | Noted Date | + + + | Microalbuminuria | 11/05/2018 | + + + | Overweight (BMI 25.0-29.9) | 11/05/2018 | + + + | Essential (primary) hypertension | 11/05/2018 | + + + | Chronic kidney disease, stage III (moderate) | 10/24/2018 | + + + | Spondylolisthesis of cervical region | 07/03/2018 | + + + | Foraminal stenosis of cervical region | 07/03/2018 | + + + | Neck pain | 04/17/2018 | + + + | Trigger point of neck | 04/04/2018 | + + + | Cervical radiculopathy | 11/28/2017 | + + + | Trochanteric bursitis of both hips | 11/28/2017 | + + + | Change in bowel habits | 05/22/2017 | + + + | S/P lumbar fusion | 03/14/2017 | + + + | Hypertension | 02/12/2017 | + + + | GERD (gastroesophageal reflux disease) | 02/12/2017 | + + + | Hard of hearing | 02/12/2017 | + + + + + | Overview: hearing aids worn | + + + + + | H/O PONV Postoperative nausea and vomiting | 02/12/2017 | + + + | H/O Hysterectomy | 02/12/2017 | + + + | Class I, BMI 30-34.9 | 02/12/2017 | + + + | Idiopathic scoliosis of lumbar spine | 10/26/2016 | + + + | Lumbar scoliosis | 10/26/2016 | + + + | Lumbar foraminal stenosis | 08/30/2016 | + + + | Rheumatoid arthritis - on methotrexate | 07/09/2013 | + + + | Sacroiliitis | 09/04/2012 | + + + | BURSITIS, HIP | | + + + | Facet arthritis of lumbar region | | + + + | BACK PAIN, LUMBAR | | + + + | INTERNAL DERANGEMENT, KNEE | | + + + | Fibromyalgia | | + + + | Lumbar radiculopathy | | + + + | DEGENERATIVE DISC DISEASE, LUMBAR SPINE | | + + + | DEGENERATIVE DISC DISEASE, CERVICAL SPINE | | + + + Resolved Problems + + + + | Problem | Noted | Resolved | | | Date | Date | + + + + | Dysphagia | 05/22/20 | | | | 17 | 7 | + + + + Encounters +--------+ + + + + | Date | Type | Specialty | Care Team | Description | +--------+ + + + + | 05/06/ | Telephone | Physical Medicine | Dennys Pineda PA-C | Paperwork | | 2019 | | and Rehabilitation | | | +--------+ + + + + | 05/05/ | Office | Physical Medicine | Dennys Pineda PA-C | Lumbar radiculopathy | | 2019 | Visit | and Rehabilitation | | (Primary Dx); | | | | | | Lumbar foraminal | | | | | | stenosis; | | | | | | Fibromyalgia; [...] type | +--------+ + + + + from Last 3 Months Immunizations + + + + | Name | Administration Dates | Next Due | + + + + | INFLUENZA 65 Y OR >, | 04/16/2013 | | | TRIVALENT HIGH-DOSE | | | + + + + | INFLUENZA PF 65 Y OR | 03/18/2018 | | | >,TRIVALENT (FLUAD) | | | + + + + | INFLUENZA PF | 03/29/2017, 03/03/2016, 03/21/2015, | | | QUAD(PED/ADOL/ADULT) | 04/16/2013 | | | ,PSKT or VIAL | | | + + + + | INFLUENZA PF | 04/06/2017, 03/11/2014 | | | TRIVALENT(PED/ADOL/A | | | | NICKY PSKT | | | + + + + | INFLUENZA, | 04/06/2017, 03/29/2017, 05/04/2015 | | | UNSPECIFIED | | | | FORMULATION | | | + + + + | PNEUMOCOCCAL | 05/10/2015 | | | CONJUGATE 13-VALENT | | | | (PCV13) | | | + + + + | TD PF (2 LF TETANUS) | 12/22/1992 | | | (ADOL/ADULT) | | | + + + + Family History + + +------+ + | Medical History | Relation | Name | Comments | + + +------+ + | No known problems | Child | | | + + +------+ + | Parkinsonism | Father | | | + + +------+ + | Heart disease | Maternal | | | | | Aunt | | | + + +------+ + | No known problems | Maternal | | | | | Grandfath | | | | | er | | | + + +------+ + | Heart defect | Maternal | | enlarged | | | Grandmoth | | | | | er | | | + + +------+ + | Lung cancer | Maternal | | | | | Uncle | | | + + +------+ + | Dementia | Mother | | | + + +------+ + | Heart defect | Mother | | enlarged | + + +------+ + | Heart disease | Mother | | | + + +------+ + | Stroke | Mother | | | + + +------+ + | Heart disease | Paternal | | | | | Aunt | | | + + +------+ + | No known problems | Paternal | | | | | Grandfath | | | | | er | | | + + +------+ + | No known problems | Paternal | | | | | Grandmoth | | | | | er | | | + + +------+ + | Alcohol abuse | Sister | | | + + +------+ + | Arthritis | Sister | | | + + +------+ + | Gout | Sister | | | + + +------+ + | Heart disease | Sister | | | + + +------+ + | Heart failure | Sister | | | + + +------+ + + +------+ + + | Relation | Name | Status | Comments | + +------+ + + | Child | | | | + +------+ + + | Father | | | Parkinsons | | | | (Age | | | | | 89) | | + +------+ + + | Maternal Aunt | | | Heart | | | | (Age | | | | | 70) | | + +------+ + + | Maternal Aunt | | | | + +------+ + + | Maternal Aunt | | | | + +------+ + + | Maternal Grandfather | | | | + +------+ + + | Maternal Grandmother | | | Heart problems | | | | (Age | | | | | 80) | | + +------+ + + | Maternal Uncle | | | | + +------+ + + | Maternal Uncle | | | | + +------+ + + | Maternal Uncle | | | Lung | | | | (Age | | | | | 70) | | + +------+ + + | Mother | | | Stroke | | | | (Age | | | | | 70) | | + +------+ + + | Paternal Aunt | | | | + +------+ + + | Paternal Grandfather | | | | + +------+ + + | Paternal Grandmother | | | | + +------+ + + | Sister | | Alive | | + +------+ + + Social History + +-------+ +--------+------+ [...] + + + | Respiratory Rate | 16 | 09/18/2018 2:37 PM | | | | | PDT | | + + + + + | Oxygen Saturation | 98% | 07/03/2018 12:42 PM | | | | | PST [...] + + + + Plan of Treatment +--------+ + + + [...] | | | | | [place] [address] | | | | | | [phone] | | | | | | | | | | | | [employer] | | +--------+ + + + + + + + + + | Health Maintenance | Due Date | Last Done | Comments | + + + + + | Vaccine: Zoster (1 | | | | | of 2) | 0 | | | + + + + + | Vaccine: | | 12/22/1992 | | | Dtap/Tdap/Td (1 - | 3 | | | | Tdap) | | | | + + + + + | Breast Cancer | | 03/04/2009 | | | Screening | 1 | | | + + + + + | Adult Annual | | | | | Wellness Visit | 5 | | | + + + + + | Vaccine: | | 05/10/2015 | | | Pneumococcal 65+ (2 | 6 | | | | of 2 - PPSV23) | | | | + + + + + | Vaccine: Influenza | Completed | 03/27/2019, 03/18/2018, | | | | | 04/06/2017, Additional history | | | | | exists | | + + + + + Implants + +--------+--------+ +--------+--------+--------+ | Implanted | Type | Area | Manufacture | Device | Shelf | Model | | | | | r | | Expira | / | | | | | | Identi | tion | Serial | | | | | | fier | Date | / Lot | + +--------+--------+ +--------+--------+--------+ | Cage Cdale Ptc 22mm 12deg | Generi | Anteri | [employer] - | | 05/12/ | [id number] | | 12x5 - [id number]: | c | or: | MEDT | | 2023 | 5 / | | Qty: 1 on 02/14/2017 by Kelli, | | Back | | | | /17CX | | Agusto Donato MD at [facility] | | | | | | | | [facility] | | | | | | | + +--------+--------+ +--------+--------+--------+ | Imp Spn Spcr 12 Deg 12x27 - | Generi | Anteri | [employer] - | | 02/10/ | [id number] | | [id number]: Qty: 1 on | c | or: | MEDT | | 2023 | 7 / | | 02/14/2017 by Agusto Pereira, | | Back | | | | /06CR | | at [facility] | | | | | | | | [facility] | | | | | | | + +--------+--------+ +--------+--------+--------+ | Izabella Spn Spcr 6 Deg 12x22 - | Generi | Anteri | [employer] - | | 12/22/ | [id number] | | [id number]: Qty: 1 on | c | or: | MEDT | | 4 | 2 / | | 02/14/2017 by Agusto Pereira, | | Back | | | | /35CH | | MD at [facility] | | | | | | | | [facility] | | | | | | | + +--------+--------+ +--------+--------+--------+ | Freeman Perc Susan Ccm [id number] - | Generi | Anteri | [employer] - | | | [id number] | | [id number]: Qty: 2 on | c | or: | MEDT | | | 065 / | | 02/14/2017 by Agusto Pereira, | | Back | | | | / | | MD at [facility] | | | | | | | | [facility] | | | | | | | + +--------+--------+ +--------+--------+--------+ | Graft Infuse Bone Kit Xxs - | Graft | Anteri | [employer] - | | 03/24/ | [id number] | | [id number]: Qty: 1 on | | or: | MEDT | | 2017 | 0 / | | 02/14/2017 by Agusto Pereira, | | Back | | | | /[id number] | | at [facility] | | | | | | 58AAA | | [facility] | | | | | | | + +--------+--------+ +--------+--------+--------+ | Graft Infuse Bone Kit Xs - | Graft | Anteri | [employer] - | | 03/24/ | [id number] | | [id number]: Qty: 1 on | | or: | MEDT | | 2017 | 0 / | | 02/14/2017 by Agusto Pereira, | | Back | | | | /[id number] | | at [facility] | | | | | | 58AAD | | [facility] | | | | | | | + +--------+--------+ +--------+--------+--------+ | Putty Elin 10cc Dbm - | Graft | Anteri | [employer] - | | 10/25/ | [id number] | | [id number]: Qty: 1 | | or: | MEDT | | 2020 | | | on 02/14/2017 by Agusto Pereira | | Back | | | | /[id number] | | MD Kinga at [facility] | | | | | | 7-038 | | [facility] | | | | | | / | + +--------+--------+ +--------+--------+--------+ | Screw 4.75 Xtb Karen Mas | Screw | Anteri | [employer] - | | | [id number] | | 7.5x50 - [id number]: | | or: | MEDT | | | [id number] | | Qty: 2 on 02/14/2017 by Kelli, | | Back | | | | / / | | Agusto Donato MD at [facility] | | | | | | | | [facility] | | | | | | | + +--------+--------+ +--------+--------+--------+ | Screw Set Slra Perc Ti 4.75 - | Screw | Anteri | [employer] - | | | [id number] | | [id number]: Qty: 6 | | or: | MEDT | | | 0 / / | | on 02/14/2017 by Agusto Pereira | | Back | | | | | | MD Kinga at [facility] | | | | | | | | [facility] | | | | | | | + +--------+--------+ +--------+--------+--------+ | Screw 4.75 Xtb Karen Mas | Screw | Anteri | [employer] - | | | [id number] | | 6.5x50 - [id number]: | | or: | MEDT | | | [id number] | | Qty: 2 on 02/14/2017 by Kelli, | | Back | | | | / / | | Agusto Donato MD at [facility] | | | | | | | | [facility] | | | | | | | + +--------+--------+ +--------+--------+--------+ | Screw 4.75 Xtb Karen Mas | Screw | Anteri | [employer] - | | | [id number] | | 7.5x45 - [id number]: | | or: | MEDT | | | [id number] | | Qty: 2 on 02/14/2017 by Kelli, | | Back | | | | / / | | Agusto Donato MD at [facility] | | | | | | | | [facility] | | | | | | | + +--------+--------+ +--------+--------+--------+ Results Not on filefrom Last 3 Months Insurance + +--------+ +--------+-------+---------+--------+ | Payer | Benefi | Subscriber | Effect | Phone | Address | Type | | | t Plan | ID | la nena | | | | | | / | | Dates | | | | | | Group | | | | | | + +--------+ +--------+-------+---------+--------+ | [employer] | [employer] | [id number] | 06/25/19 | | | Medica | | | MDCR | | 14-Pre | | | re | | | PPO | | sent | | | | + +--------+ +--------+-------+---------+--------+ + +--------+ +--------+ + + | Guarantor Name | Accoun | Relation to | Date | Phone | Billing Address | | | t Type | Patient | of | | | | | | | | | | + +--------+ +--------+ + + | Ashly Santiago | Person | Self [birth year] | [address] | | | al/Fam | | 1940 | [phone] | [place], [place] | | | aishwarya | | | 0 (Home) | [address] | + +--------+ +--------+ + + | Ashly Santiago | Person | Self | [birth year] | [address] | | | al/Fam | | 1940 | [phone] | [place], [place] | | | a[place]warya | | | 0 (Home) | [address] | + +--------+ +--------+ + + Advance Directives + + + + + | Type | Date Recorded | Patient | Explanation | | | | 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
--- OUTSIDE RECORDS SUMMARY | ~2019-05-17 | XMS | Encounter Summary ---
Demographics + + + | Address | [address] | | | [place] [address] | + + + | Home Phone | | + + + | Preferred Language | Unknown | + + + | Marital Status | | + + + | Holiness Affiliation | 1077 | + + + | Race | Unknown | + + + | Ethnic Group | Unknown | + + + Author + + + | Author | [facility] | | | and Azana | + + + | Organization | [facility] | | | and Azana [...] [place], [place] | | | | | [address] | | + + + + + | Helena Doherty | ECON | [place], | | | | | [place] [address] | | + + + + + Care Team Providers + +------+ + | Care Senior Center Manager Name | Role | Phone | [...] | Degenerative | [address] | [place], [place] | | | | | disc | [place] | [address] Phone: | | | | | disease, | [address] | [phone] | | | | | lumbar | Phone: | Fax: | | | | | Lumbar | [phone] | [phone] | | | | | foraminal | Fax: | | | | | | stenosis | [phone] | | | | | | Fibromyalgia [...] Description | +--------+---------+ + + + | 11/08/ | Office | [facility] | Fay, | Sacroiliitis (HCC) | | 2017 | Visit | MED CTR THERAPY PT | FABIAN Castillo [address] | (Primary Dx); | | | | OP [address] | [facility], | Fibromyalgia | | | | [place] | [place] [address] | | | | | [address] | [phone] | | | | | [phone] | | | | | | | Aiyana Fish S, PT | | | | | | [address] | | | | | | [place] | | | | | | [phone] | | | | | | | [...] encounter Progress Notes Aiyana Fish, PT - 11/08/2016 1:08 PM PDTFormatting of this note might be different fro m the original. [facility] CTR THERAPY PT OP [address] [place] [address] Physical Therapy Daily Treatment Note Date: 11/08/2016 Patient Information Patient Name: Ashly Santiago Date of : 1940 Age: 76 y.o. Encounter Diagnoses Code Name Primary? M46.1 Sacroiliitis (HCC) Yes M79.7 Fibromyalgia Date of Onset: 06/08/2016 Referring Provider: Anna Aponte PA-C Rehab Precautions Office Visit from 10/19/2016 in [facility] CTR THERAPY PT OP Rehab Precautions Precautions None Rehab Learning Style Office Visit from 10/19/2016 in [facility] CTR THERAP[facility] PT OP Learning Style Patient's Optimum Learning Style listening, reading, observation, performance of task Start Time: 1306 Stop time: 1407 Duration: 61 minutes Timed Treatment Codes: 61 minutes # of PT Visits to Date: 4 Subjective: Pt reports that her pain has been up and down this week. Sometimes very low pain and yet l ast night the pain in her left LE was so bad she was unable to sleep. Pain Assessment: Pain Rating Pre Assessment: 6 Pain Rating Post Assessment: 0 Location: lower back and left leg Objective: Manual Treatment: Myofascial Release/Positional Release: Dural tube mobilization, left hip (piriformis), upper and mid thoracic spine and cervical spine with dural tube traction mult iple levels. Assessment: Significant dural and nerve root adhesions at spinal segments T5-7 causing some drag on the vertical membrane system especially into the left lower lumbar spine and sacrum. She had 0 /10 pain following the treatment. Plan: Continue with manual therapy and development of home program. Encourage her to walk daily. Electronically signed by: Aiyana Fish, PT, 11/08/2016 14:18 Patient Name: Ashly Santiago/: 1940/ documented in this en counter Plan of Treatment +--------+ + + + + | Date | Type | Specialty | Care Team | Description | +--------+ + + + + | 05/19/ | Hospital | Radiology | Dennys Pineda PA-C | | | 2018 | Encounter | | [address] [facility] | | | | | | [address] [facility] | | | | | | [place] [address] | | | | | | [phone] | | | | | | | | | | | | Drapery And Upholstery EstimatorNaomi | | +--------+ + + + + documented as of this encounter Visit Diagnoses + + | Diagnosis | + + | Sacroiliitis (HCC) - Primary Sacroiliitis, not elsewhere classified | + + | Fibromyalgia Mylagia and myositis, unspecified | + + documented in this encounter"
--- OUTSIDE RECORDS SUMMARY | ~2019-05-17 | XMS | Encounter Summary ---
Demographics + + + | Address | [address] [facility] | | | [place] [address] | + + + | Home Phone | | + + + | Preferred Language | Unknown | + + + | Marital Status | | + + + | Lutheran Affiliation | 1077 | + + + | Race | Unknown | + + + | Ethnic Group | Unknown | + + + Author + + + | Author | [facility] | | | and Azana | + + + | Organization | [facility] | | | and Azana [...] [place], [place] | | | | | [address] | | + + + + + | Helena Doherty | ECON | [place], | | | | | [place] [address] | | + + + + + Care Team Providers + +------+ + | Care Packaging Supervisor Name | Role | Phone | + +------+ + | Nathan Luevano DO | PCP | | + +------+ + Reason for Visit + + + | Reason | Comments | + + + | Labs Only | CMP | + + + Encounter Details +--------+ + + + + | Date | Type | Department | Care Team | Description | +--------+ + + + + | 03/18/ | Telephone | [facility] [place] | Andrew Miranda, | Labs Only (CMP) | | 2017 | | PHYSIATRY [address] | PA-C [address] | | | | | [place], | [address] [place] | | | | | [place] [address] | [place] [address] | | | | | [phone] | [phone] | | | | | | | [...] | | | | | | [place] [address] | | | | | | [phone] | | | | | | | | | | | | Bindery ManagerNaomi | | +--------+ + + + + documented as of this encounter Visit Diagnoses Not on filedocumented in this encounter"
--- OUTSIDE RECORDS SUMMARY | ~2019-05-17 | XMS | Encounter Summary ---
Demographics + + + | Address | [address] | | | [place] [address] | + + + | Home Phone | | + + + | Preferred Language | Unknown | + + + | Marital Status | | + + + | Anabaptist Affiliation | Unknown | + + + | Race | White | + + + | Ethnic Group | Not or | + + + Author + + + | Author | [facility] | + + + | Organization | [facility] | + + + | Address | Unknown | + + + | Phone | Unavailable | + + + Support + + +---------+ + | Name | Relationship | Address | Phone | + + +---------+ + | Alon Santiago | ECON | Unknown | | + + +---------+ + Care Team Providers + +------+ + | Care Product Picker Name | Role | Phone | + +------+ + | Thee Boss MD | PCP | | + +------+ + Reason for Visit + + + | Reason | Comments | + + + | Refill Request | [place] | + + + Encounter Details +--------+--------+ + + + | Date | Type | Department | Care Team | Description | +--------+--------+ + + + | 03/03/ | Refill | Rheumatology at | Rosas Lucia MD | Refill Request | | 2014 | | Physicians [place] | [address] [facility] | ([place]) | | | | [address] [facility] | [address], | | | | | Amara Chatman Mailcode: | [place] [address] | | | | | [address] Physician's | [phone] | | | | | [place], 4th Floor | | | | | | [place], [place] | | | | | | [address] | | | | | | [phone] | | | +--------+--------+ + + + [...]
--- OUTSIDE RECORDS SUMMARY | ~2019-05-17 | XMS | Encounter Summary ---
Demographics + + + | Address | [address] [facility] | | | [place] [address] | + + + | Home Phone [...] | Author | [facility] | | | and Azana | + + + | Organization | [facility] | | | and [...] [place], [place] | | | | | [address] | | + + + + + | Helena Doherty | ECON | [place], | | | | | [place] [address] | | + + + + + Care Team Providers + +------+ + | Care Relief Worker Name | Role | Phone | + +------+ + | Nathan Luevano DO | PCP | | + +------+ + Encounter Details +--------+ + + + + | Date | Type | Department | Care Team | Description | +--------+ + + + + | 10/31/ | Orders Only | [facility] [place] | Agusto Pereira MD | Lumbar radiculopathy | | 2017 | | NEUROSURGERY [address] | [address] | (Primary Dx); 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); Lumbar | | | | | | [...] | | | | | | [place] [address] | | | | | | [phone] | | | | | | | | | | | | Crime Specialist, [facility] | | +--------+ + + + [...]
--- OUTSIDE RECORDS SUMMARY | ~2019-05-17 | XMS | Encounter Summary ---
Demographics + + + | Address | [address] [facility] [address] [facility] | | | [place] [address] | + + + | Home Phone | | + + + | Preferred Language | Unknown | + + + | Marital Status | | + + + | Worship Affiliation | 1077 | + + + | Race | Unknown | + + + | Ethnic Group | Unknown | + + + Author + + + | Author | [facility] | | | and Azana | + + + | Organization | [facility] | | | and Azana [...] [place], [place] | | | | | [address] | | + + + + + | Helena Doherty | ECON | [place], | | | | | [place] [address] | | + + + + + Care Team Providers + +------+ + | Care Accounts Adjustable Clerk Name | Role | Phone | + +------+ + PCP | Unavailable | + +------+ + Encounter Details +--------+ + + + + | Date | Type | Department | Care Team | Description | +--------+ + + + + | 07/06/ | Hospital | [facility] | | | | 2009 | Encounter | MED CTR GENERIC OP | | | | | | CONV DEPT [address] | | | | | | [place], | | | | | | [place] [address] | | | | | | [phone] | | | +--------+ + + + [...] | | | | | | [place] [address] | | | | | | [phone] | | | | | | | | | | | | Cane Flume Feeding Machine OperatorNaomi | | +--------+ + + + + documented as of this encounter Visit Diagnoses Not on filedocumented in this encounter"
--- OUTSIDE RECORDS SUMMARY | ~2019-05-17 | XMS | Encounter Summary ---
Demographics + + + | Address | [address] [facility] | | | [place] [address] | + + + | Home Phone | | + + + | Preferred Language | Unknown | + + + | Marital Status | | + + + | Hoahaoism Affiliation | 1077 | + + + | Race | Unknown | + + + | Ethnic Group | Unknown | + + + Author + + + | Author | [facility] | | | and Azana | + + + | Organization | [facility] | | | and Azana [...] [place], [place] | | | | | [address] | | + + + + + | Helena Doherty | ECON | [place], | | | | | [place] [address] | | + + + + + Care Team Providers + +------+ + | Care Rag Cutting Machine Operator Name | Role | [...] | | [address] | [place] [address] | | | | | [place] | [phone] | | | | | [address] | | | | | | [phone] | | | +--------+ + + + [...] [place] | | | | | | [place] [address] | | | | | | [phone] | | | | | | | | | | | | Glass Technician/Installer, [facility] | | +--------+ + + + + documented as of this encounter Visit Diagnoses Not on filedocumented in this encounter"
--- OUTSIDE RECORDS SUMMARY | ~2019-05-17 | XMS | Encounter Summary ---
Demographics + + + | Address | [address] [facility] [facility] | | | [place] [address] | + + + | Home Phone [...] + | Author | [facility] | | | and Azana | + + + | Organization | [facility] | | | and Azana [...] [place], [place] | | | | | [address] | | + + + + + | Helena Doherty | ECON | [place], | | | | | [place] [address] | | + + + + + Care Team Providers + +------+ + | Care Kennel Aide Name | Role | Phone | + +------+ + | Nathan Luevano DO | PCP | | + +------+ + Reason for Visit + + + | Reason | Comments | + + + | Results, Pathology | Colonoscopy | + + + Encounter Details +--------+ + + + + | Date | Type | Department | Care Team | Description | +--------+ + + + + | 05/28/ | Telephone | [facility] | Joshua Hilliard MD | Results, Pathology | | 2017 | | GASTROENTEROLOGY | [address], [place] | (Colonoscopy) | | | | [address] [place] | [address] [place] | | | | | [address] [place], [place] | [address] | | | | | [address] | | | | | | [phone] | | | +--------+ + + + [...] | | | | | [address] [place] | | | | | | [place] [address] | | | | | | [phone] | | | | | | | | | | | | Rn Clinical AppealsNaomi | | +--------+ + + + + documented as of this encounter Visit Diagnoses Not on filedocumented in this encounter"
--- OUTSIDE RECORDS SUMMARY | ~2019-05-17 | XMS | Encounter Summary ---
Demographics + + + | Address | [address] | | | [place] [address] | + + + | Home Phone | | + + + | Preferred Language | Unknown | + + + | Marital Status | | + + + | Hindu Affiliation | 1077 | + + + | Race | Unknown | + + + | Ethnic Group | Unknown | + + + Author + + + | Author | [facility] | | | and Azana | + + + | Organization | [facility] | | | and Azana [...] [place], [place] | | | | | [address] | | + + + + + | Helena Doherty | ECON | [place], | | | | | [place] [address] | | + + + + + Care Team Providers + +------+ + | Care Natural Resources Instructor Name | Role | Phone | + +------+ + | Thee Boss MD | PCP | | + +------+ + Encounter Details +--------+ + + + + | Date | Type | Department | Care Team | Description | +--------+ + + + + | 09/18/ | Abstract | [facility] [place] | Brendan Orlando MD | | | 2012 | | OTOLARYNGOLOGY [address] | [address] [place] | | | | | [address] | [address] [place], | | | | | [place], [place] | [place] [address] | | | | | [address] | [phone] | | | | | [phone] | | | +--------+ + + + [...] | | | | | [address] [facility] | | | | | | [place] [address] | | | | | | [phone] | | | | | | | | | | | | Welder Production Line ArcNaomi | | +--------+ + + + + documented as of this encounter Visit Diagnoses Not on filedocumented in this encounter"
--- OUTSIDE RECORDS SUMMARY | ~2019-05-17 | XMS | Encounter Summary ---
Demographics + + + | Address | [address] [facility] [facility] | | | [place] [address] | + + + | Home Phone | | + + + | Preferred Language | Unknown | + + + | Marital Status | | + + + | Congregation Affiliation | 1077 | + + + | Race | Unknown | + + + | Ethnic Group | Unknown | + + + Author + + + | Author | [facility] | | | and Azana | + + + | Organization | [facility] | | | and [...] [place], [place] | | | | | [address] | | + + + + + | Helena Doherty | ECON | [place], | | | | | [place] [address] | | + + + + + Care Team Providers + +------+ + | Care Planning Aide Name | Role | Phone | [...] + + + + | 07/17/ | Telephone | [facility] [place] | Agusto Pereira MD | Procedure | | 2019 | | CARDIOLOGY [address] | [address] | | | | | [place], | [place] [address] | | | | | [place] [address] | [phone] | | | | | [phone] | | | +--------+ + + + [...] | | | | | | [place] [address] | | | | | | [phone] | | | | | | | | | | | | System Support AnalystNaomi | | +--------+ + + + + documented as of this encounter Visit Diagnoses Not on filedocumented in this encounter"
--- OUTSIDE RECORDS SUMMARY | ~2019-05-17 | XMS | Encounter Summary ---
Demographics + + + | Address | [address] | | | [place] [address] | + + + | Home Phone | | + + + | Preferred Language | Unknown | + + + | Marital Status | | + + + | Baptism Affiliation | 1077 | + + + | Race | Unknown | + + + | Ethnic Group | Unknown | + + + Author + + + | Author | [facility] | | | and Azana | + + + | Organization | [facility] | | | and [...] [place], [place] | | | | | [address] | | + + + + + | Helena Doherty | ECON | [place], | | | | | [place] [address] | | + + + + + Care Team Providers + +------+ + | Care Paradi Operator Name | Role | Phone | + +------+ + | Nathan Luevano DO | PCP | | + +------+ + Reason for Referral Evaluate & Treat (Routine) +--------+--------+ + + + + | Status | Reason | Specialty | Diagnoses / | Referred By | Referred To | | | | | Procedures | Contact | Contact | +--------+--------+ + + + + | Closed | | Neurosurgery | Diagnoses | Ruben, | Agusto Pereira | | | | | Cervical | FABIAN Morales | MD [address] | | | | | radiculopath | [address] | | | | | y | [address] | [place], [place] | | | | | | [address] | [address] | | | | | | [place], | Phone: | | | | | | [place] [address] | [phone] | | | | | | Phone: | Fax: | | | | | | [phone] | [phone] | | | | | | Fax: | | | | | | | [phone] | | +--------+--------+ + + + + Encounter Details +--------+ + + + + | Date | Type | Department | Care Team | Description | +--------+ + + + + | 05/07/ | Orders Only | [facility] [place] | RubenNamy, | Cervical | | 2018 | | PHYSIATRY [address] | PA-C [address] | radiculopathy | | | | [place], | [address] [place] | (Primary Dx) | | | | [place] [address] | [place] [address] | | | | | [phone] | [phone] | | | | | | | [...] | | | | | [place] [address] | | | | | | [phone] | | | | | | | | | | | | Cdl Flatbed Truck Driver, [facility] | | +--------+ + + + + + + +--------+ + + | Name | Type | Priori | Associated Diagnoses | Order Schedule | | | | ty | | | + + +--------+ + + | NEUROSURGERY | Outpatient | Routin | Cervical | Ordered: 05/07/2018 | | REFERRAL INTERNAL | Referral | e | radiculopathy | | + + +--------+ + + documented as of this encounter Visit Diagnoses + + | Diagnosis | + + | Cervical radiculopathy - Primary Brachial neuritis or radiculitis nos | + + documented in this encounter"
--- OUTSIDE RECORDS SUMMARY | ~2019-05-17 | XMS | Encounter Summary ---
Demographics + + + | Address | [address] | | | [place] [address] | + + + | Home Phone | | + + + | Preferred Language | Unknown | + + + | Marital Status | | + + + | Orthodoxy Affiliation | Unknown | + + + | Race | White | + + + | Ethnic Group | Not or | + + + Author + + + | Author | [facility] | + + + | Organization | [facility] | + + + | Address | Unknown | + + + | Phone | Unavailable | + + + Support + + +---------+ + | Name | Relationship | Address | Phone | + + +---------+ + | Alon Santiago | ECON | Unknown | | + + +---------+ + Care Team Providers + +------+ + | Care Associate Director Data & Analytics Name | Role | Phone | + [...] | [facility] [address] | A, CALL OR CONTACT CENTRE OPERATOR [address] | | | | | [address] | [address] | | | | | Physician's [place] | [place], [place] | | | | | [place], [place] | [address] | | | | | [address] | [phone] | | | | | [phone] | | | +--------+ + + + [...]
--- OUTSIDE RECORDS SUMMARY | ~2019-05-17 | XMS | Encounter Summary ---
Demographics + + + | Address | [address] [facility] [address] [facility] | | | [place] [address] | + + + | Home Phone | | + + + | Preferred Language | Unknown | + + + | Marital Status | | + + + | Pentecostalism Affiliation | 1077 | + + + | Race | Unknown | + + + | Ethnic Group | Unknown | + + + Author + + + | Author | [facility] | | | and Azana | + + + | Organization | [facility] | | | [...] [place], [place] | | | | | [address] | | + + + + + | Helena Doherty | ECON | [place], | | | | | [place] [address] | | + + + + + Care Team Providers + +------+ + | Care International Logistics Manager Name | Role | Phone | [...] | | | bursitis, | Ave | [address] Phone: | | | | | left hip | [place], | [phone] | | | | | M70.61 | [place] | Fax: | | | | | (ICD-10-CM) | [address] | [phone] | | | | | - | Phone: | | | | | | Trochanteric | [phone] | | | | | | bursitis, | Fax: | | | | | | right hip | [phone] | | | | | | M79.7 [...] Description | +--------+---------+ + + + | 09/02/ | Office | [facility] | Aiyana Fish, | Fibromyalgia | | 2019 | Visit | [facility] | PT [address] | (Primary Dx); Neck | | | | [address] | [place] | pain; Trochanteric | | | | [place] | [address] | bursitis of both | | | | [address] | | hips | | | | [phone] | | | +--------+---------+ + + + [...] encounter Progress Notes Aiyana Fish, PT - 09/02/2018 12:00 PM PDTFormatting of this note might be different fro m the original. [facility] [address] [place] [address] Physical Therapy Daily Treatment Note Date: 09/02/2018 Patient Information Patient Name: Ashly Santiago Date of : 1940 Age: 78 y.o. Encounter Diagnoses Code Name Primary? M79.7 Fibromyalgia Yes M54.2 Neck pain M70.61, M70.62 Trochanteric bursitis of both hips Date of Onset: 04/10/2018 Referring Provider: Sophia Bush PA-C Rehab Precautions Office Visit from 04/17/2018 in [facility] CTR THERAPY PT OP Rehab Precautions Precautions None Rehab Learning Style Office Visit from 04/17/2018 in [facility] CTR [facility] PT OP Office Visit fro m 10/19/2016 in [facility] CTR [facility] PT OP Learning Style Patient's Optimum Learning Style listening, reading, observation, performance of task lis tening, reading, observation, performance of task Start Time: 1205 Stop time: 1252 Duration: 47 minutes Timed Treatment Codes: 47 minutes # of PT Visits to Date: 15 Subjective: Pt just got injections in both hips last week. She thinks this has helped and is now able t o go up and down her stairs without a lot of pain. Pain Assessment: Pain Rating Pre Assessment: 3 Location: top of the pelvis and the top and mid part of her back Objective: Manual Treatment: Myofascial release and positional release therapy: Dural tube mobilizati on, left hip and leg, left iliopsoas, upper and mid thoracic spine and cervical spine Assessment: Good response to treatment. Fascial release resulted in improved mobility in the soft tiss ues in the mid thoracic spine following the session. Pt feels that her neck symptoms are st able and her ROM remains good. She is still having consistent pain in the hips. Recent kevin roid injections were helpful Plan: Continue with manual therapy and development of home program Electronically signed by: Aiyana Fish, PT, 09/02/2018 13:37 Patient Name: Ashly Real Santiago/: 1940/ documented in this en counter Plan of Treatment +--------+ + + + + | Date | Type | Specialty | Care Team | Description | +--------+ + + + + | 05/19/ | Hospital | Radiology | Dennys Pineda PA-C | | | 2018 | Encounter | | [address] | | | | | | [address] [place] | | | | | | [place] [address] | | | | | | [phone] | | | | | | | | | | | | Manpower Development Specialist ManagerNaomi | | +--------+ + + + [...]
--- OUTSIDE RECORDS SUMMARY | ~2019-05-17 | XMS | Encounter Summary ---
Demographics + + + | Address | [address] | | | [place] [address] | + + + | Home Phone | | + + + | Preferred Language | Unknown | + + + | Marital Status | | + + + | Catholic Affiliation | 1077 | + + + | Race | Unknown | + + + | Ethnic Group | Unknown | + + + Author + + + | Author | [facility] | | | and Azana | + + + | Organization | [facility] | | | and [...] [place], [place] | | | | | [address] | | + + + + + | Helena Doherty | ECON | [place], | | | | | [place] [address] | | + + + + + Care Team Providers + +------+ + | Care Rn Imcu Name | Role | Phone | + [...] | +--------+ + + + + | 12/01/ | Telephone | [facility] [place] | Agusto Pereira MD | Procedure | | 2017 | | NEUROSURGERY [address] | [address] | | | | | [address] [facility] [address] | [place] [address] | | | | | [place] | [phone] | | | | | [address] | | | | | | [phone] | | | +--------+ + + + [...] | | | | | [place] [address] | | | | | | [phone] | | | | | | | | | | | | Architectural DesignerNaomi | | +--------+ + + + + documented as of this encounter Visit Diagnoses Not on filedocumented in this encounter"
--- OUTSIDE RECORDS SUMMARY | ~2019-05-17 | XMS | Encounter Summary ---
Demographics + + + | Address | [address] | | | [place] [address] | + + + | Home Phone | | + + + | Preferred Language | Unknown | + + + | Marital Status | | + + + | Orthodox Affiliation | 1077 | + + + | Race | Unknown | + + + | Ethnic Group | Unknown | + + + Author + + + | Author | [facility] | | | and Azana | + + + | Organization | [facility] | | | [...] [place], [place] | | | | | [address] | | + + + + + | Helena Doherty | ECON | [place], | | | | | [place] [address] | | + + + + + Care Team Providers + +------+ + | Care Senior Chemical Engineer Name | Role | Phone | + +------+ + | Nathan Luevano DO | PCP | | + +------+ + Encounter Details +--------+ + + + + | Date | Type | Department | Care Team | Description | +--------+ + + + + | 04/11/ | Orders Only | [facility] | Ruben, Andrew, | Cervical | | 2018 | | PHYSIATRY [address] | PA-C [address] | radiculopathy | | | | [place], | [address] [place] | (Primary Dx); | | | | [place] [address] | [place] [address] | Osteoarthritis of | | | | [phone] | [phone] | cervical spine, | | | | | | unspecified spinal | | | | | | osteoarthritis | | | | | | complication status | +--------+ + + + + Social [...] | | | | | [place] [address] | | | | | | [phone] | | | | | | | | | | | | Pearl Technician, [facility] | | +--------+ + + + + documented as of this encounter Visit Diagnoses + + | Diagnosis | + + | Cervical radiculopathy - Primary Brachial neuritis or radiculitis nos | + + | Osteoarthritis of cervical spine, unspecified spinal osteoarthritis complication | | status | + + documented in this encounter"
--- OUTSIDE RECORDS SUMMARY | ~2019-05-17 | XMS | Encounter Summary ---
Demographics + + + | Address | [address] | | | [place] [address] | + + + | Home Phone | | + + + | Preferred Language | Unknown | + + + | Marital Status | | + + + | Holiness Affiliation | 1077 | + + + | Race | Unknown | + + + | Ethnic Group | Unknown | + + + Author + + + | Author | [facility] | | | and Azana | + + + | Organization | [facility] | | | and [...] [place], [place] | | | | | [address] | | + + + + + | Helena Doherty | ECON | [place], | | | | | [place] [address] | | + + + + + Care Team Providers + +------+ + | Care Mash Processing Operator Name | Role | Phone | [...] | | | bursitis, | Ave | [address] Phone: | | | | | left hip | [place], | [phone] | | | | | [phone] | [place] | Fax: | | | | | (ICD-10-CM) | [address] | [phone] | | | | | - | Phone: | | | | | | Trochanteric | [phone] | | | | | | bursitis, | Fax: | | | | | | right hip | [phone] | | | | | | M79.7 [...] Description | +--------+---------+ + + + | 08/13/ | Office | [facility] | Aiyana Fish, | Fibromyalgia | | 2019 | Visit | [facility] | PT [address] | (Primary Dx); Neck | | | | [address] | [place] | pain; Trochanteric | | | | [place] | [address] | bursitis of both | | | | [address] | | hips | | | | [phone] | | | +--------+---------+ + + + [...] documented as of this encounter Progress Notes AbeAiyana, PT - 08/13/2018 12:00 PM PSTFormatting of this note might be different fro m the original. [facility] [address] [place] [address] Physical Therapy Daily Treatment Note Date: 08/13/2018 Patient Information Patient Name: Ashly Santiago Date [...] reading, observation, performance of task Start Time: 1158 Stop time: 1246 Duration: 48 minutes Timed Treatment Codes: 48 minutes # of PT Visits to Date: 14 Subjective: Pt reports that she is not having a good day. She is feeling stiff and sore today. She is trying CBD oil for pain and not sure it is helping. Admits to a lot of travel and activity over the past week and a massage last night which could explain some of the increased pain. She also reports and episode of pain in her neck in which the pain went through her whole b chantale into arms and legs -cord compression? Pt is scheduled for neck surgery with Dr. Pereira in Feb 2019 Pain Assessment: Pain Rating Pre Assessment: 6 Pain Rating Post Assessment: 4 Location: both knees are stifflow back and hips Objective: Manual Treatment: Myofascial release and positional release therapy to multiple areas: Dur al tube mobilization, right hip and knee, sacrum, left hip, upper and mid thoracic spine and cervical spine. Assessment: Good response to treatment. Fascial release resulted in improved mobility in the hips with less pain during ambulation and lower pain level reported to be 4/10 following the session. Plan: Continue with manual therapy and development of home program Electronically signed by: Aiyana Fish PT, 08/13/2018 12:49 Patient Name: Ashly Santiago/: 1940/ documented in [...] DAIANA | | | | | | [place] [address] | | | | | | [phone] | | | | | | | | | | | | X Ray Examiner Of AircraftNaomi | | +--------+ + + + + documented as of this encounter Visit Diagnoses + + | Diagnosis | + + | Fibromyalgia - Primary Mylagia and myositis, unspecified | + + | Neck pain Cervicalgia | + + | Trochanteric bursitis of both hips Enthesopathy of hip region | + + documented in this encounter"
--- OUTSIDE RECORDS SUMMARY | ~2019-05-17 | XMS | Encounter Summary ---
Demographics + + + | Address | [address] | | | [place] [address] | + + + | Home Phone | | + + + | Preferred Language | Unknown | + + + | Marital Status | | + + + | Restorationist Affiliation | 1077 | + + + | Race | Unknown | + + + | Ethnic Group | Unknown | + + + Author + + + | Author | [facility] | | | and Azana | + + + | Organization | [facility] | | | and [...] [place], [place] | | | | | [address] | | + + + + + | Helena Doherty | ECON | [place], | | | | | [place] [address] | | + + + + + Care Team Providers + +------+ + | Care Outbound Telemarketing Representative Name | Role | Phone | + +------+ + | Nathan Luevano DO | PCP | | + +------+ + Encounter Details +--------+ + + + + | Date | Type | Department | Care Team | Description | +--------+ + + + + | 03/14/ | Hospital | [facility] | Agusto Pereira MD | S/P lumbar fusion | | 2017 | Encounter | MED CTR XRAY [address] | [address] | | | | | [place] | [place] [address] | | | | | [place] [address] | [phone] | | | | | [phone] | | | +--------+ + + + [...] | + + + +---------+--------+ + | diclofenac | Apply 1 g topically | | 0 | | | | (VOLTAREN) 1% GEL | 2 times daily. | | | | | + + + +---------+--------+ + | hydroxychloroquine | Take 200 mg by mouth | | 0 | | | | (PLAQUENIL) 200 mg | Daily. | | | | | | tablet | | | | | | + + + +---------+--------+ + | | Take 1 tablet by | | 0 | | | | losartan-hydrochloro | mouth Daily. | | | | | | thiazide (HYZAAR) | | | | | | | 50-12.5 MG per | | | | | | | tablet | | | | | | + + + +---------+--------+ + | LYSINE PO | Take 50 mg by mouth | | 0 | | | | | Daily. L-Lysine 50 | | | | | | | mg daily | | | | | + + + +---------+--------+ + | methotrexate 2.5 | Take 10 mg by mouth | | 0 | | | | mg tablet | Once a week. | | | | | + + + +---------+--------+ + | NALTREXONE HCL PO | Take 5 mg by mouth | | 0 | | | | | Daily. | | | | | + + + +---------+--------+ + | Nutritional | Take 1 tablet by | | 0 | | | | Supplements | mouth Daily. | | | | | | (ESTROVEN PO) | | | | | | + + + +---------+--------+ + | Acetaminophen | Take 2 Caplet by | | 0 | | | | (TYLENOL EXTRA | mouth 2 times daily. | | | | 9 | | STRENGTH PO) | | | | | | + + + +---------+--------+ + | BIOTIN 5000 PO | Take 1 tablet by | | 0 | | | | | mouth Daily. | | | | 9 | + + + +---------+--------+ + | Cholecalciferol | Take 2,000 Units by | | 0 | | | | (VITAMIN D-3) 2000 | mouth Daily. | | | | 9 | | units CAPS | | | | | | + + + +---------+--------+ + | Cyanocobalamin | Take 1,000 mcg by | | 0 | | | | (VITAMIN B 12 PO) | mouth Daily. | | | | 9 | + + + +---------+--------+ + | folic acid 1 mg | Take 1 mg by mouth | | 0 | | | | tablet | Daily. | | | | 9 | + + + +---------+--------+ + | Multiple | Take 1 capsule [...] | | | | | [place] [address] | | | | | | [phone] | | | | | | | | | | | | Compress Machine OperatorNaomi | | +--------+ + + + + documented as of this encounter Procedures + +--------+ + + + | Procedure Name | Priori | Date/Time | Associated Diagnosis | Comments | | | ty | | | | + +--------+ + + + | XR LUMBAR SPINE 2 [place] | Routin | 03/14/2017 | S/P lumbar fusion | Results for this | | 3 VW | e | 2:18 PM | | procedure are in the [...]
--- OUTSIDE RECORDS SUMMARY | ~2019-05-17 | XMS | Encounter Summary ---
Demographics + + + | Address | [address] | | | [place] [address] | + + + | Home Phone [...] | Author | [facility] | | | and Azana | + + + | Organization | [facility] | | | and [...] [place], [place] | | | | | [address] | | + + + + + | Helena Doherty | ECON | [place], | | | | | [place] [address] | | + + + + + Care Team Providers + +------+ + | Care Senior Advocate Name | Role | Phone | + +------+ + | Nathan Luevano DO | PCP | | + +------+ + Reason for Visit + + + | Reason | Comments | + + + | Medication Refill | | + + + Encounter Details +--------+--------+ + + + | Date | Type | Department | Care Team | Description | +--------+--------+ + + + | 03/15/ | Refill | [facility] | Osman Beth | Medication Refill | | 2017 | | PHYSIATRY [address] | [address] | | | | | [place], | [place], [place] | | | | | [place] [address] | [address] | | | | | [phone] | | | +--------+--------+ + + + [...] | | | | | [place] [address] | | | | | | [phone] | | | | | | | | | | | | Scientific Glass BlowerNaomi | | +--------+ + + + + documented as of this encounter Visit Diagnoses + + | Diagnosis | + + | Medication management - Primary Encounter for other specified aftercare | + + documented in this encounter"
--- OUTSIDE RECORDS SUMMARY | ~2019-05-17 | XMS | Encounter Summary ---
Demographics + + + | Address | [address] | | | [place] [address] | + + + | Home Phone | | + + + | Preferred Language | Unknown | + + + | Marital Status | | + + + | Anabaptist Affiliation | 1077 | + + + | Race | Unknown | + + + | Ethnic Group | Unknown | + + + Author + + + | Author | [facility] | | | and Azana | + + + | Organization | [facility] | | | and Azana [...] [place], [place] | | | | | [address] | | + + + + + | Helena Doherty | ECON | [place], | | | | | [place] [address] | | + + + + + Care Team Providers + +------+ + | Care Button Puncher Name | Role | Phone | + +------+ + | Nathan Luevano DO | PCP | | + +------+ + Encounter Details +--------+ + + + + | Date | Type | Department | Care Team | Description | +--------+ + + + + | 02/13/ | Anesthesia | [facility] | David Hammonds, | | | 2017 | Event | MED CTR [place] [facility] OP | DO [address] | | | | | [address] | [place] | | | | | [place] | [address] | | | | | [address] | | | | | | [phone] | Layton Kruger | | | | | | MD Kyra [address] | | | | | | [place] | | | | | | [address] | | | | | | [phone] | | | | | | | | +--------+ + + + + Anesthesia Record + + + + + | Procedure Name | Responsible | Anesthesia Start | Anesthesia Stop Time | | | Anesthesiologist | Time | | + + + + + | L4-5 Lateral | | | | | Anterior Interbody | | | | | Fusion, L5-S1 | | | | | Transforaminal | | | | | Lumbar Interbody | | | | | Fusion (Anterior ) | | | | + + + + + + + | No events on file. | + + +------+ | Meds | +------+ + + + No medications | on file. | + + + + + | No agents on file. | + + + + | No blood administrations on file. | + + + + | No LDAs on file. | + + documented in this encounter Social [...] | | | | | | [place] [address] | | | | | | [phone] | | | | | | | | | | | | Battery Tester, [facility] | | +--------+ + + + + documented as of this encounter Visit Diagnoses Not on filedocumented in this encounter"
--- OUTSIDE RECORDS SUMMARY | ~2019-05-17 | XMS | Encounter Summary ---
Demographics + + + | Address | [address] | | | [place] [address] | + + + | Home Phone | | + + + | Preferred Language | Unknown | + + + | Marital Status | | + + + | Temple Affiliation | 1077 | + + + | Race | Unknown | + + + | Ethnic Group | Unknown | + + + Author + + + | Author | [facility] | | | and Azana | + + + | Organization | [facility] | | | and Azana | + + + | Address | Unknown | + + + | Phone | Unavailable | + + + Support + + + + + | Name | Relationship | Address | Phone | + + + + + | Alon Santiago | KATERIN | [address] | | | | | [place], [place] | | | | | [address] | | + + + + + | Helena Doherty | ECON | [place], | | | | | [place] [address] | | + + + + + Care Team Providers + +------+ + | Care Rate Clerk Name | Role | Phone | + +------+ + | Nathan Luevano DO | PCP | | + +------+ + Reason for Visit + + + | Reason | Comments | + + + | Procedure | scheduling | + + + | Procedure | Was scheduled for Pre-op in , heard Dr Pereira is leaving. | | | Options? | + + + Encounter Details +--------+ + + + + | Date | Type | Department | Care Team | Description | +--------+ + + + + | 07/29/ | Telephone | [facility] | Agusto Pereira MD | Procedure | | 2019 | | NEUROSURGERY [address] | [address] | (scheduling ); | | | | [address] | [place] [address] | Procedure (Was | | | | [place] | [phone] | scheduled for Pre-op | | | | [address] | | in , diane Grijalva | | | | [phone] | | Kelli woamck leaving. | | | | | | Options? ) | +--------+ + + + + Social [...] DAIA[place] | | | | | | [place] [address] | | | | | | [phone] | | | | | | | | | | | | Pipe Finisher, [facility] | | +--------+ + + + + documented as of this encounter Visit Diagnoses Not on filedocumented in this encounter"
--- OUTSIDE RECORDS SUMMARY | ~2019-05-17 | XMS | Encounter Summary ---
Demographics + + + | Address | [address] [facility] | | | [place] [address] | + + + | Home Phone [...] | Author | [facility] | | | and Azana | + + + | Organization | [facility] | | | and Azana [...] [place], [place] | | | | | [address] | | + + + + + | Helena Doherty | ECON | [place], | | | | | [place] [address] | | + + + + + Care Team Providers + +------+ + | Care Drafter Tool Design Name | Role | Phone | + +------+ + | Nathan Luevano DO | PCP | | + +------+ + Reason for Visit + + + | Reason | Comments | + + + | Back Pain | | + + + | Post-op Question | | + + + Encounter Details +--------+ + + + + | Date | Type | Department | Care Team | Description | +--------+ + + + + | 07/18/ | Telephone | [facility] | Agusto Pereira MD | Back Pain; Post-op | | 2017 | | NEUROSURGERY [address] | [address] | Question | | | | [address] [facility] [address] | [place] [address] | | | | | [place] | [phone] | | | | | [address] | | | | | | [phone] | | | +--------+ + + + [...] | | | | | [place] [address] | | | | | | [phone] | | | | | | | | | | | | Inspector Final Assembly MechanicalNaomi | | +--------+ + + + + documented as of this encounter Visit Diagnoses Not on filedocumented in this encounter"
--- OUTSIDE RECORDS SUMMARY | ~2019-05-17 | XMS | Encounter Summary ---
Demographics + + + | Address | [address] | | | [place] [address] | + + + | Home Phone | | + + + | Preferred Language | Unknown | + + + | Marital Status | | + + + | Episcopalian Affiliation | 1077 | + + + | Race | Unknown | + + + | Ethnic Group | Unknown | + + + Author + + + | Author | [facility] | | | and Azana | + + + | Organization | [facility] | | | and [...] [place], [place] | | | | | [address] | | + + + + + | Helena Doherty | ECON | [place], | | | | | [place] [address] | | + + + + + Care Team Providers + +------+ + | Care Loft Patternmaker Name | Role | Phone | + +------+ + | Nathan Luevano DO | PCP | | + +------+ + Encounter Details +--------+ + + + + | Date | Type | Department | Care Team | Description | +--------+ + + + + | 07/03/ | Documentati | [facility] | Agusto Pereira MD | | | 2019 | on | NEUROSUR[address]ERY [address] | [address] | | | | | [address] | [place] [address] | | | | | [place], [place] | [phone] | | | | | [address] | | | | | | [phone] | | | +--------+ + + + [...] documented as of this encounter Progress Notes Dominga Sims, Band Master - 07/03/2018 12:55 PM PST Outpatient Morphine Equivalent Daily Dose (MEDD) None Opioid Risk Tool (ORT): Total Score 4 (07/03/18 1481) (0 to 3 = Low risk: 6% chance of developing problematic behaviors, 4 to 7 = Moderate risk: 28% chance of developing problematic behaviors, 8 or more = High risk: 90% chance of develop ing problematic behaviors.) PEG Pain screening tool (Pain, enjoyment, general activity) Total score: 8 (07/03/18 1 256) PHQ9 Depression scale: Date of Last Screening Total Score 14 (07/03/18 1259) (1-4 = Minimal depression, 5-9 = Mild depression, 10-14 = Moderate depression, 15-19 = Mode rately severe depression, 20-27 = Severe depression) General Anxiety Disorder (COLTEN-7): Total Score 15 (07/03/18 1259) (8-9 = consistent with Generalized anxiety disorder, >15 = severe) The following information was obtained from https://PPI.PictureMenu.net/login on 07/03/18. [place] WARP TRUCKER was checked on 07/03/18 and no medications have been dispensed over the past 3 m [facility]. The following information was obtained from https://Clean Engines.Hungerstation.com.gov/myAccess/saw/select .do on 07/03/18. Tdocumented in this encounter Plan of Treatment +--------+ [...] [place] | | | | | | [place] [address] | | | | | | [phone] | | | | | | | | | | | | Pear PickerNaomi | | +--------+ + + + + documented as of this encounter Visit Diagnoses Not on filedocumented in this encounter"
--- OUTSIDE RECORDS SUMMARY | ~2019-05-17 | XMS | Encounter Summary ---
Demographics + + + | Address | [address] | | | [place] [address] | + + + | Home Phone [...] | [facility] | | | and Azana | + + + | Organization | [facility] | | | and Azana [...] [place], [place] | | | | | [address] | | + + + + + | Helena Doherty | ECON | [place], | | | | | [place] [address] | | + + + + + Care Team Providers + +------+ + | Care Belt Cutter Name | Role | Phone | + [...] | | | | | | | UT | | | | | | | ARTHDSIS | | | | | | | POST/POSTERO | | | | | | | LATRL/POSTIN | | | | | | | TERBODY | | | | | | | LUMBAR UT | | | | | | | SPINE | | | | | | | FUSN,POST | | | | | | | TECH,EA | | | | | | | ADDNL SGMT | | | | | | | UT LUMBAR | | | | | | [...] | | | | | | SEG UT | | | | | | | LAMINEC/FACE | | | | | | | TECT/FORAMIN | | | | | | | ,EACH ADDNL | | | | | | | UT INSJ | | | | | | | BIOMCHN DEV | | | | | | | INTERVERTEBR | | | | | | | AL DSC SPC | | | | | | | W/ARTHRD UT | | | | | | | [...] | +--------+ + + + + | 02/14/ | Hospital | [facility] | Agusto Pereira MD | Gait abnormality | | 2017 - | Encounter | [facility] | [address] | (Primary Dx) | | | | [address] | [place] [address] | | | 02/17/ | | [place] [address] | [phone] | | | 2016 | | [phone] | | | +--------+ + + + [...] of admission the patient was admitted to [facility] and underwent a L4-S1. Patient was transferred to PACU and then to the neurosurgical floor. In brief, the hospit al stay was uncomplicated, the patient mobilized well with physical therapy and occupational therapy. There were no cardiac issues, pulmonary issues, evidence of DVT or infection. Niko ropriate discharge plans were made in line with her progress and mobility and she was ultima tely discharged to home. Medications Reconciled upon Discharge [...] Medications diclofenac 75 mg EC tablet aka: VOLTAREN Condition on Discharge: Stable Disposition: Patient was discharged to home Follow-Up Plans: Follow-up with: Dr. Burk's office in 4 weeks Follow-up with primary care physician as needed. Diet: Resume regular diet Activity: Continue to follow guidelines and precautions as previously discussed. Brace: C Electronically signed by: Eric Mcmanus, 02/17/2017 8:41 [facility] documented in this encounter Discharge Instructions [...] seat, and a shower chair in your [facility]. Take your medication exactly as directed. Don [...] month post op appointment before your appointment. [phone] [employer]. [address] [place] [address], [place] [address]. All righ ts reserved. This information is [...] might be different f rom the original. [facility] NEUROSURGERY PROGRESS NOTE PATIENT NAME: Ashly Santiago [...] injection 12.5 mg 12.5 mg Intravenous Q4H PRAngella Altamirano PA-C Or diphenhydrAMINE (BENADRYL) tablet 25 mg 25 mg Oral Q4H PRAngella Altamirano PA-C Or diphenhydrAMINE (BENADRYL) 12.5 mg/5 [...] 5-20 mg 5-20 mg Oral Q4H PRN OBEY Acuña-C 5 mg at 02/17/17 0814 phenol (CHLORASEPTIC) [...] ml Net 510 ml GENERAL: Ashly Addie Jack is in no acute distress with unlabored [...] has no apparent deficits with short or halfway memory. MOTOR EXAM: Motor strength is stable [...] BY: OBEY Dalton, 02/17/2017 8:27 Shreyas Gilmore PA-C - 02/16/2017 7:42 AM PDTFormatting of this note might be different from the origin [facility] NEUROSURGERY PROGRESS NOTE PATIENT NAME: Ashly Santiago [...] injection 1-2 mg 1-2 mg Intravenous Q1H PRAngella Altamirano PA-C ondansetron (ZOFRAN ODT) disintegrating tablet [...] has no apparent deficits with short or halfway memory. MOTOR EXAM: Motor strength is stable [...] Gilmore PA-C - 017 7:38 AM PDT [facility] NEUROSURGERY PROGRESS NOTE PATIENT NAME: Ashly Santiago [...] 200 mg 200 mg Oral Daily Kyra AcuñaC 200 mg at 02/14/17 1447 labetalol (TRANDATE) [...] mg 4 mg Oral Q6H PRN Shreyas shannon, FABIAN ondansetron (ZOFRAN) injection 4 mg 4 mg [...] has no apparent deficits with short or adjunct faculty for medical terminology memory. MOTOR EXAM: Motor strength is stable [...] | | | | | [address] [facility] | | | | | | [place] [address] | | | | | | [phone] | | | | | | | | | | | | [employer] Developer, [employer] | | +--------+ + + + [...] | | | 02/06/ | | | 2017:I | | | nstrum | | | [...] | | [place] | | | n [place] | | | Frame | | | and | | | OSI | | | [place] | | | Flat | | | [...] | | | n | | | [place], | | | OSI | | | [place] | | | Flat | | | [...] | | + +---------+ + + GISELLE AlvaresStef Moura (02/14/2017 10:06 AM PDT) + + | [...] + | Diagnosis | + + | Gait abnormality - Primary Abnormality of gait | + + documented in this encounter [...] PM PDT | | | | | 8/23/17 at 1240, | | | | | | | Post-op/Phase II | | | | | | + +--------+ +--------+------+------+ +---+---+ | | | +---+---+ + +-------+ +--------+---+---+ | acetaminophen (TYLENOL) tablet | Given | 02/15/20 | 975 mg | | | | 975 mg 975 mg, Oral, ONCE, Wed | | 17 7:16 | | | | | 02/14/17 at 0700, For 1 dose, | | AM PDT | | | | | Pre-op | | | | | | [...] | | | | Pharmacist Nazanin Trejo, [facility] | | | | | | [...] +---+---+ | | | +---+---+ + +---------+ +-----+-------+---+ | ceFAZolin in saline (ANCEF) | New Bag | 02/15/20 | 2 g | 100 | | | IVPB 2 g 2 g, Intravenous, | | 17 11:12 | | mL/hr | | | Administer over 30 Minutes, EVERY | | PM PDT | | | | | 8 HOURS INTERVAL, First dose on | | | | | | | 02/14/17 at 1600, For 2 doses, | | | | | | | Start 8 hours after previous | | | | | | | dose. Last dose to be given | | | | | | | within 24 hours of surgery end | | | | | | | time. Keep in refrigerator., | | | | | | | Post-op/Phase II, Indications: | | | | | | | Surgical Prophylaxis | | | | | | + +---------+ +-----+-------+---+ +---------+ +-----+-------+---+ | New Bag | 02/15/20 | 2 g | 100 | | | | 17 5:34 | | mL/hr | | | | PM PDT | | | | +---------+ +-----+-------+---+ +---+---+ | | | +---+---+ + +-------+ +-------+---+---+ | cyclobenzaprine (FLEXERIL) | Given | 02/18/20 | 10 mg | | | | tablet 10 mg 10 mg, Oral, EVERY | | 17 8:14 | | | | | 8 HOURS PRN, Muscle spasms, | | AM PDT | | | | | Starting Sun02/14/17 at 1240, Use | | | | [...] | capsule 100 mg 100 mg, Oral, 8:14 | | | | | TIMES [...] | | +---+---+ + +-------+ +--------+---+---+ | HYDROmorphone (DILAUDID) | Given | 02/15/20 | 0.2 mg | | | | injection 0.2-0.5 mg 0.2-0.5 mg, | | 17 11:40 | | | | | Intravenous, EVERY 10 MIN PRN, | | AM PDT | | | | | Pain, Starting 02/14/17 at | | | | | | | 0957, Maximum total dose 4 mg. | | | | | | | PACU IV Narcotic Priority: Only | | | | | | | use fentanyl for immediate | | | | | | | post-op pain (one dose) or | | | | | | | breakthrough pain when any other | | | | | | | IV narcotics ordered have been | | | | | | | ineffective (if ordered). If | | | | | | | both morphine and hydromorphone | | | | | | | are ordered, use morphine first, | | | | | | | and use hydromorphone if morphine | | | | | | | ineffective., Recovery/Phase I | | | | | | + +-------+ +--------+---+---+ +-------+ +--------+---+---+ | Given | 02/15/20 | 0.2 mg | | | | | 17 11:30 | | | | | | AM PDT | | | | +-------+ +--------+---+---+ | Given | 02/15/20 | 0.2 mg | | | | | 17 11:20 | | | | | | AM [...] 8:42 | | | | | Starting 02/14/17 at 1240, If | | PM PDT [...] 8:14 | | | | | on 02/14/17 at 1315 | | AM PDT | [...] | | +---+---+ + +-------+ +---------+---+---+ | magnesium citrate liquid 300 mL | Given | 02/18/20 | 300 mLs | | | | 300 mL, Oral, ONCE, 02/17/17 | | 17 10:27 | | | | | at 0900, For 1 dose | | AM PDT | | | | + +-------+ +---------+---+---+ +---+---+ | | | +---+---+ + +---------+ +--------+--------+---+ | methocarbamol (ROBAXIN) 750 mg | New Bag | 02/16/20 | 750 mg | 143.3 | | | in sodium chloride 0.9% 100 mL | | 17 3:10 | | mL/hr | | | IVPB 750 mg, Intravenous, | | AM PDT | | | | | Administer over 45 Minutes, EVERY | | | | | | | 8 HOURS INTERVAL, First dose on | | | | | | | 02/14/17 at 1030, For 3 doses, | | | | | | | Post-op/Phase II | | | | | | + +---------+ +--------+--------+---+ +---------+ +--------+--------+---+ | New Bag | 02/15/20 | 750 mg | 143.3 | | | | 17 7:01 | | mL/hr | | | | PM PDT | | | | +---------+ +--------+--------+---+ | New Bag | 02/15/20 | 750 mg | 143.3 | | | | 17 10:35 | | mL/hr | | | | AM PDT | | | | +---------+ +--------+--------+---+ +---+---+ | | | +---+---+ + +-------+ +--------+---+---+ | methocarbamol (ROBAXIN) tablet | Given | 02/17/20 | 750 mg | | | | 750 mg 750 mg, Oral, EVERY 8 | | 17 5:39 | | | | | HOURS PRN, Muscle spasms, | | PM PDT | | | | | Starting 02/14/17 at 1240, For | | | | | | | 3 doses, Post-op/Phase II | | | | | | + +-------+ +--------+---+---+ +-------+ +--------+---+---+ | Given | 02/17/20 | 750 mg | | | | | 17 6:20 | | | | | | AM PDT | | | | +-------+ +--------+---+---+ | Given | 02/16/20 | 750 mg | | | | | 17 8:15 | | | | | | PM PDT | | | | +-------+ +--------+---+---+ +---+---+ | | | +---+---+ + +-------+ +-------+---+ + | methylnaltrexone (RELISTOR) | Given | 02/18/20 | 12 mg | | Abdomen- | | injection 12 mg 12 mg, | | 17 10:29 | | | RLQ | | Subcutaneous, ONCE, 02/17/17 | | AM PDT | | | | | at 0900, For 1 dose | | | | | | + +-------+ +-------+---+ + +---+---+ | | | +---+---+ + +-------+ +------+---+---+ | ondansetron (ZOFRAN ODT) | Given | 02/18/20 | 4 mg | | | | disintegrating tablet 4 mg 4 mg, | | 17 4:56 | | | | | Oral, EVERY 6 HOURS PRN, Nausea, | | PM PDT | | | | | Vomiting, Starting Sun02/14/17 | | | | | | | [...] PDT | | | | | Starting Sun02/14/17 at 1240, | | | | | [...] | oxyCODONE (ROXICODONE) tablet | Given | 02/17/20 | 5 mg | | | | 5-10 mg 5-10 mg, Oral, EVERY 4 | | 17 6:20 | | | | | HOURS PRN, Pain, Starting Wed | | AM PDT | | | | | 02/14/17 at 1240, Post-op/Phase II | | | | | | + +-------+ +------+---+---+ +-------+ +------+---+---+ | Given | 02/17/20 | 5 mg | | | | | 17 2:14 | | | | | | AM PDT | | | | +-------+ +------+---+---+ | Given | 02/16/20 | 5 mg | | | | | 17 8:15 | | | | | | PM [...]
--- OUTSIDE RECORDS SUMMARY | ~2019-05-17 | XMS | Encounter Summary ---
Demographics + + + | Address | [address] | | | [place] [address] | + + + | Home Phone | | + + + | Preferred Language | Unknown | + + + | Marital Status | | + + + | Yazdanism Affiliation | 1077 | + + + | Race | Unknown | + + + | Ethnic Group | Unknown | + + + Author + + + | Author | [facility] | | | and Azana | + + + | Organization | [facility] | | | and Azana [...] [place], [place] | | | | | [address] | | + + + + + | Helena Doherty | ECON | [place], | | | | | [place] [address] | | + + + + + Care Team Providers + +------+ + | Care Emergency Room Doctor Name | Role | Phone | + [...] + + | 06/22/ | Telephone | [facility] | Joshua Hilliard MD | Medication Refill | | 2016 | | GASTROENTEROLOGY | [address], [place] | | | | | [address] [place] | [address] [place], [place] | | | | | [address] [place], [place] | [address] | | | | | [address] | | | | | | [phone] | | | +--------+ + + + [...] CENTER | | | | | | [place] [address] | | | | | | [place] [address] | | | | | | [phone] | | | | | | | | | | | | Line Installation Supervisor, [facility] | | +--------+ + + + + documented as of this encounter Visit Diagnoses Not on filedocumented in this encounter"
--- OUTSIDE RECORDS SUMMARY | ~2019-05-17 | XMS | Encounter Summary ---
Demographics + + + | Address | [address] | | | [place] [address] | + + + | Home Phone [...] | Author | [facility] | | | and Azana | + + + | Organization | [facility] | | | and Azana [...] [place], [place] | | | | | [address] | | + + + + + | Helena Doherty | ECON | [place], | | | | | [place] [address] | | + + + + + Care Team Providers + +------+ + | Care Traffic Lieutenant Name | Role | Phone | + +------+ + | Nathan Luevano DO | PCP | | + +------+ + Encounter Details +--------+ + + + + | Date | Type | Department | Care Team | Description | +--------+ + + + + | 05/02/ | Abstract | [facility] | Joshua Hilliard MD | | | 2016 | | GASTROENTEROLOGY | [address], [place] | | | | | [address] [place] | [address] [place], [place] | | | | | [address] [place], [place] | [address] | | | | | [address] | | | | | | [phone] | | | +--------+ + + + [...] | | | | | [place] [address] | | | | | | [phone] | | | | | | | | | | | | Laborer [place] [facility], [facility] | | +--------+ + + + + documented as of this encounter Visit Diagnoses Not on filedocumented in this encounter"
--- OUTSIDE RECORDS SUMMARY | ~2019-05-17 | XMS | Encounter Summary ---
Demographics + + + | Address | [address] | | | [place] [address] | + + + | Home Phone [...] Providers + +------+ + | Care Outbound Sales Professional Name | Role | Phone | + +------+ + | Thee Boss MD | PCP | | + +------+ + Encounter Details +--------+ + + + + | Date | Type | Department | Care Team | Description | +--------+ + + + + | 05/06/ | Hospital | Diagnostic | | | | 2012 | Encounter | Radiology at [facility] | | | | | | [address] | | | | | | Amara Chatman Mailcode: | | | | | | [id number] Physician's | | | | | | [place], | | | | | | [place] [address] | | | | | | [phone] | | | +--------+ + + + [...] + +--------+ + + + | X-RAY SACROILIAC | Routin | 05/06/2013 | Joint pain | Results for this | | JOINTS 1 VIEW | e | 3:53 PM | | procedure are in the | | | | PST | | results section. | + +--------+ + + + documented in this encounter Results X-RAY SACROILIAC JOINTS 1 VIEW (05/06/2013 3:53 PM PST) + + + + + + | Component | Value | Ref Range | Performed | Pathologist | | | | | At | Signature | + + + + + + | SACROILIAC | STUDY: SACROILIAC JOINTS | | | | | JOINTS 1 | 1 VIEW 05/06/13 | | | | | VIEW | 15:53:00 HISTORY: | | | | | | Evaluate for | | | | | | sacroiliitis. | | | | | | COMPARISON: None. | | | | | | FINDINGS: The sacroiliac | | | | | | joints are normal. | | | | | | There is no sclerosis, | | | | | | ankylosis or erosion. | | | | | | The hip joint spaces and | | | | | | the symphysis pubis | | | | | | appear maintained. | | | | | | There is nofocal soft | | | | | | tissue abnormality. | | | | | | IMPRESSION: Normal | | | | | | sacroiliac joints. | | | | | | Attending Radiologists: | | | | | | ANGELES SOLOMON, | | | | | | MDAuthor: ANGELES | | | | | | MD JUANITO I have | | | | | | personally viewed this | | | | | | procedure/exam, reviewed | | | | | | this report, and | | | | | | madechanges to it where | | | | | | appropriate. | | | | | | Final/Electronically | | | | | | arron / ANGELES | | | | | | JUANITO 05/06/2013 16:02 | | | | | | PM | | | | + + + + + + + + | Specimen | + + | | + + + +---------+ + + | Performing | Address | City/State/Zipcode | Phone Number | | Organization | | | | + +---------+ + + | [place] [facility] | | | | [facility]Y | | | | + +---------+ + + documented in this encounter Visit Diagnoses + + | Diagnosis | + + | Joint pain Pain in joint, site unspecified | + + documented in this encounter"
--- OUTSIDE RECORDS SUMMARY | ~2019-05-17 | XMS | Encounter Summary ---
Demographics + + + | Address | [address] [facility] [address] [address] [facility] | | | [place] [address] | + + + | Home Phone [...] + | Author | [facility] | | | and Azana | + + + | Organization | [facility] | | | and Azana [...] [place], [place] | | | | | [address] | | + + + + + | Helena Doherty | ECON | [place], | | | | | [place] [address] | | + + + + + Care Team Providers + +------+ + | Care Power Press Tender Name | Role | Phone | + +------+ + | Nathan Luevano DO | PCP | | + +------+ + Reason for Visit + + + | Reason | Comments | + + + | Follow-up(Procedure) | 05/23/2017 | + + + Encounter Details +--------+---------+ + + + | Date | Type | Department | Care Team | Description | +--------+---------+ + + + | 06/26/ | Office | [facility] | Joshua Hilliard MD | Functional diarrhea | | 2018 | Visit | GASTROENTEROLOGY | [address] [place] [address] | (Primary Dx) | | | | [address] | [address] [place] | | | | | [address] [place] | [id number] | | | | | [address] | | | | | | [phone] | | | +--------+---------+ + + + [...] + + + | Blood Pressure | 140/68 | 06/26/2017 2:28 PM | | | | | PST | | + + + + + | Pulse | 80 | 06/26/2017 2:28 PM | | | | | PST | | + + + + + | Temperature | - | - | | + + + + + | Respiratory Rate | 16 | 06/26/2017 2:28 PM | | | | | PST | | + + + + + | Oxygen Saturation | - | - | | + + + + + | Inhaled Oxygen | - | - | | | Concentration | | | | + + + + + | Weight | 86.7 kg (191 lb 2.2 | 06/26/2017 2:28 PM | | | | oz) | PST | | + + + + + | Height | 167.6 cm (5' 6") | 06/26/2017 2:28 PM | | | | | PST | | + + + + + | Body Mass Index | 30.85 | 06/26/2017 2:28 PM | | | | | PST | | + + + + + documented in this encounter Progress Notes Joshua Hilliard MD - 06/26/2017 2:30 PM PST Subjective: Patient ID: Ashly Santiago is a 77 y.o. female. Patient returns to discuss diarrhea. Although on one colonoscopy 2016 for evaluation of diarrhea. Colonoscopy was remarkable for 2 adenomas removed from the cecum and sigmoid colon. Random biopsies of the right and left colon were negative for microscopic or collagenous colitis. Stool studies were negativ e for significant pathogens. Patient was begun on Stram one scoop twice a day. She noticed an improvement of her bowel pattern and discontinued the Metamucil that she was taking zoey g with Questran. She became constipated i.e. hard dry stool and decrease Questran to once a day. Again she became constipated with hard dry stools and discontinued the Questran for d ays ago. She's had normal stool since that time. Patient denies any abdominal pain or cram ping. She does occasionally feel bloated after dinner or larger meals. The patient has ear ly progressive satiety rarely feels hungry. She complains of a dry mouth and the small esop hagus which causes her increased time in eating and swallowing. She tries to use liquids to wash the food material down. She has some nausea which seems to be precipitated by certain smells. The above symptoms of early progressive satiety nausea became prominent following her back surgery . The surgery was successful in relieving long time back discomfort . The patient reported some left sided discomfort and left lower quadrant discomfort follow ing procedure but access to the lumbar spine was done through the left CVA area. That has l argely resolved Review of Systems Constitutional: Positive for appetite change. Gastrointestinal: Positive for abdominal distention and diarrhea. Musculoskeletal: Positive for arthralgias and back pain. All other systems reviewed and are negative. Objective: BP 140/68 | Pulse 80 | Resp 16 | Ht 1.676 m (5' 6") | Wt 86.7 kg (191 lb 2.2 oz) | BMI 30.85 kg/m Physical Exam Constitutional: She is oriented to person, place, and time. She appears well-developed and well-nourished. No distress. HENT: Head: Normocephalic and atraumatic. Right Ear: External ear normal. Left Ear: External ear normal. Nose: Nose normal. Mouth/Throat: Oropharynx is clear and moist. No oropharyngeal exudate. Eyes: Conjunctivae and EOM are normal. Pupils are equal, round, and reactive to light. Righ t eye exhibits no discharge. Left eye exhibits no discharge. No scleral icterus. Neck: Normal range of motion. Neck supple. No JVD present. No tracheal deviation present. Cardiovascular: Normal rate, regular rhythm, normal heart sounds and intact distal pulses. Exam reveals no gallop and no friction rub. No murmur heard. Pulmonary/Chest: Effort normal and breath sounds normal. No stridor. No respiratory distres s. She has no wheezes. She has no rales. She exhibits no tenderness. Abdominal: Soft. Bowel sounds are normal. She exhibits no distension and no mass. There is no tenderness. There is no rebound and no guarding. Musculoskeletal: Normal range of motion. She exhibits no edema, tenderness or deformity. Neurological: She is alert and oriented to person, place, and time. No cranial nerve defici t. She exhibits normal muscle tone. Coordination normal. Skin: Skin is warm and dry. No rash noted. She is not diaphoretic. No erythema. No pallor. Psychiatric: She has a normal mood and affect. Her behavior is normal. Judgment and thought content normal. Nursing note and vitals reviewed. Assessment: Diarrhea etiology unclear resolved History of colonic polyps tubular adenoma appropriate candidate for follow-up colonoscopy i n 5 years, recall added Plan: Patient was told to remain off the Questran. However if she develops diarrhea then would b egin with a quarter a dose or half a dose on a daily basis to control her diarrhea. Then us e Questran on a as-needed basis. documented in this enc ounter Plan of [...] | | | | | [place] [id number] | | | | | | [phone] | | | | | | | | | | | | [employer] Stret[employer], [facility] | | +--------+ + + + + documented as of this encounter Visit Diagnoses + + | Diagnosis | + + | Functional diarrhea - Primary | + + documented in this encounter
--- OUTSIDE RECORDS SUMMARY | ~2019-05-17 | XMS | Encounter Summary ---
Demographics + + + | Address | [address] [facility] | | | [place] [address] | + + + | Home Phone | | + + + | Preferred Language | Unknown | + + + | Marital Status | | + + + | Taoist Affiliation | 1077 | + + + | Race | Unknown | + + + | Ethnic Group | Unknown | + + + Author + + + | Author | [facility] | | | and Azana | + + + | Organization | [facility] | | | and Azana [...] [place], [place] | | | | | [address] | | + + + + + | Helena Doherty | ECON | [place], | | | | | [place] [address] | | + + + + + Care Team Providers + +------+ + | Care Open Tenter Operator Name | Role | Phone | + +------+ + | Nathan Luevano DO | PCP | | + +------+ + Reason for Visit + + + | Reason | Comments | + + + | Re-assessment/ | | | Significant Change | | | Care Plan | | + + + Evaluate & [...] | | Trochanteric | [address] | [place] | | | | | bursitis, | Ave | [address] Phone: | | | | | left hip | [place], | [phone] | | | | | M70.61 | [place] | Fax: | | | | | (ICD-10-CM) | [address] | [phone] | | | | | - | Phone: | | | | | | Trochanteric | [phone] | | | | | | bursitis, | Fax: | | | | | | right hip | [phone] | | | | | | M79.7 | | | | | | | (ICD-10-CM) | | | | | | | - | | | | | | | Fibromyalgia | | | | | | | Procedures | | | | | | | [facility] | | | | | | | TREATMENT 45 | | | +--------+--------+ + + + + Encounter Details +--------+---------+ + + + | Date | Type | Department | Care Team | Description | +--------+---------+ + + + | 07/01/ | Office | [facility] | [place], | Trochanteric | | 2019 | Visit | [facility] | Sophia Kingsley PA-C | bursitis of both | | | | OP [address] | [address] | hips (Primary Dx); | | | | [place] | [place], [place] | Neck pain; | | | | [address] | [address] | Fibromyalgia | | | | [phone] | [phone] | | | | | | | | | | | | Aiyana Fish S, PT | | | | | | [address] | | | | | | [place] | | | | | | [address] | | | | | | | [...] encounter Progress Notes Aiyana Fish, PT - 07/01/2018 1:00 PM PSTFormatting of this note might be different fro m the original. [facility] OP [address] [place] [address] Physical Therapy Progress Assessment Date: 07/01/2018 Patient Information Patient Name: Ashly Santiago Date of : 1940 Age: 78 y.o. Encounter Diagnoses Code Name Primary? M70.61, M70.62 Trochanteric bursitis of both hips Yes M54.2 Neck pain M79.7 Fibromyalgia Date of Onset: 04/10/2018 Referring Provider: Sophia Bush PA-C Rehab Precautions Office Visit from 04/17/2018 in [facility] OP Rehab Precautions Precautions None Rehab Learning Style Office Visit from 04/17/2018 in [facility] OP Office Visit fro m 10/19/2016 in [facility] OP Learning Style Patient's Optimum Learning Style listening, reading, observation, performance of task lis tening, reading, observation, performance of task Pain Assessment: Pain Rating Pre Assessment: 6 Location: left hip and left iliac crest SUBJECTIVE: Ashly Santiago has completed 10 visits for treatment of neck pain and bila teral hip bursitis. Patient reports improvements with ROM in her neck and no significant nec k pain at this time. However continues to report pain in her Left hip and around the iliac c rest with reduced ROM in her hips OBJECTIVE: DTRs bicep right 2+ L3+ tricep R=2+ L=0 brachialis R=0 L=0 Brachialis 2+ bilat on Prog eval Cervical ROM Initial Assessment Progress Note / Discharge Flexion: 52 55 Extension: 40 52 Side Bend Left: 30 30 Side Bend Right: 30 30 Rotation Left: 60 65 Rotation Right: 55 70 Hip ROM Flexion: R=100 L=100 IR L=30 R=20 ER L= 45 R= 45 Hamstring length normal 80 + Bilat At time of PN- same Initial Assessment Progress Note / Discharge Progress Note / Discharge Shoulder ROM: Left and Right= full(WFL) Left= WNL Right= Outcome Measure: Initial Assessment Progress Note 07/01/2018 NDI: 54/100% (A score of 0% = No Functional Disability of Cervical Spine) 22% Standardized Tests: Lower Extremity Functional Scale (LEFS): Total Score 21/80= 74% disability (From Chronic Pain tab; printable questionnaires in Irish) Interpretation of Total Score: The lower the score the greater the disability. The minimal detectable change is 9 scale points. The minimal clinically important difference is 9 scale points. % of maximal function = (LEFS score) / 80 * 100. Assessment Ashly Santiago has been participating in therapy for treatment of neck pain and bilate ral hip bursitis. During time of treatment she also had a significant flare up of right kne e pain which has since resolved. Patient demonstrates objective improvements with ROM in her cervical spine and reduction of MF tightness in her right mid and upper thoracic spine. She also improved significantly with respect to her NDI score which was 54% at time of evaluati on and is now 22%. Ashly Santiago continues to have impairments with pain primarily in her left hip region which is affecting her ability to complete functional tasks such as walk ing and standing. Patient requires continued skilled therapy services to achieve the followi ng updated functional goals. Rehabilitation potential: Patient demonstrates good potential to achieve established goals to address the documented impairments by participating in skilled physical therapy services. Goals: Patient Reported Outcome Goals Patient Reported Outcome Goals: PSFS, NDI Patient Specific Functional Scale Goal 1: PT WILL BE ABLE TO STAND FOR UP TO 30 MIN WITHOUT INCREASED PAIN Patient Specific Functional Scale Goal 1 Status: 6 Patient Specific Functional Scale Goal 1 Status Comment: pt is able to stand for up to 20 m in Patient Specific Functional Scale Goal 2: Pt will sleep without disruption for up to 5 hour s Patient Specific Functional Scale Goal 2 Status Comment: Pt is still experiencing disrupted sleep 2-3 hours per night Neck Disability Index Goal: 27 Neck Disability Index Goal Status: 22 Plan Date of Onset: 04/10/2018 Start of Care Date: 04/17/2018 Requested # of Visits: 12 visits 1x/week for 12 weeks Certification From: 07/01/2018 Certification To: 09/29/2018 Treatment Plan/Interventions 75496 - Therapeutic [id number] - Therapeutic [id number] - Manual [id number] - Liza f Care/Home Management Patient and/or family has indicated understanding of treatment needs and actively participa jesus in the creation of this plan for care. Today's Treatment Start Time: 1300 Stop time: 1410 Duration: 70 minutes Timed Treatment Codes: 55 minutes # of PT Visits: 10 Objective: Myofascial release and positional release therapy: Left hip, sacrum, cervical spine and ri ght upper/mid thoracic spine. Next Visit: Continue with manual therapy and development of home program. Pt will be zuleika Pereira on Sunday for a cervical spine consult. Electronically signed by: Aiyana Fish PT, 07/01/2018 14:40 Patient Name: Ashly Santiago/: 1940/ y signed by Aiyana Fish PT at 07/01/2018 2:41 PM PSTdocumented in this encounter Plan of Treatment +--------+ [...] [place] | | | | | | [place] [address] | | | | | | [phone] | | | | | | | | | | | | Assistant Pressman, [facility] | | +--------+ + + + [...]
--- OUTSIDE RECORDS SUMMARY | ~2019-05-17 | XMS | Encounter Summary ---
Demographics + + + | Address | [address] [facility] | | | [place] [address] | + + + | Home Phone [...] Team Providers + +------+ + | Care Venetian Blind Worker Name | Role | Phone | + +------+ + | Thee Boss MD | PCP | | + +------+ + Encounter Details +--------+------+ + + + | Date | Type | Department | Care Team | Description | +--------+------+ + + + | 12/22/ | Lab | Laboratory, | | Rheumatoid arthritis | | 2013 | | Specimen Collection | | | | | | at [address] | | | | | | [address] | | | | | | [place], | | | | | | [place] [address] | | | | | | [phone] | | | +--------+------+ + + + [...] CBC AND AUTO DIFF | Routin | 12/22/2013 | Rheumatoid | Results for this | | | e | 3:09 PM | arthritis | procedure are in the | | | | PDT | | results section. | + +--------+ + + + | CBC, WITH | Routin | 12/22/2013 | Rheumatoid | Results for this | | DIFFERENTIAL | e | 3:09 PM | arthritis | procedure are in the | | | | PDT | | results section. | + +--------+ + + + | COMPLETE METABOLIC | Routin | 12/22/2013 | Rheumatoid | Results for this | | SET | e | 3:09 PM | arthritis | procedure are in the | | (NA,K,CL,CO2,BUN,CRE | | PDT | | results section. | | AT,GLUC,CA,AST,ALT,B | | | | | | MEDINA TOTAL,ALK | | | | | | PHOS,ALB,PROT TOTAL) | | | | | + +--------+ + + + | SEDIMENTATION RATE | Routin | 12/22/2013 | Rheumatoid | Results for this | | | e | 3:09 PM | arthritis | procedure are in the | | | | PDT | | results section. | + +--------+ + + + documented in this encounter Results CBC AND AUTO DIFF (12/22/2013 3:09 PM PDT) + + + + + + | Component | Value | Ref Range | Performed | Pathologist | | | | | At | Signature | + + + + + + | WHITE CELL | 9.25 | 4.40 - 11.00 | [facility] | | | COUNT | | K/cu mm | LABORATORY | | | | | | SERVICES, | | | | | | CORE | | + + + + + + | RED CELL | 4.17 | 4.00 - 5.20 | [facility] | | | COUNT | | M/cu mm | LABORATORY | | | | | | SERVICES, | | | | | | CORE | | + + + + + + | HEMOGLOBIN | 12.8 | 12.0 - 16.0 | [facility] | | | | | g/dL | LABORATORY | | | | | | SERVICES, | | | | | | CORE | | + + + + + + | HEMATOCRIT | 40.0 | 36.0 - 46.0 % | [facility] | | | | | | LABORATORY | | | | | | SERVICES, | | | | | | CORE | | + + + + + + | MCV | 95.9 | 80.0 - 96.0 fL | [facility] [...] + + + + | PLATELET | 280 | 150 - 400 K/cu | [facility] | | | COUNT | | mm | LABORATORY | | | | | | SERVICES, | | | | | | CORE | | + + + + + + | MPV | 10.8 | 9.7 - 12.3 fL | [facility] [...] + + + + | NEUTROPHIL | 59.5 | 50.0 - 70.0 % | [facility] | | | % | | | LABORATORY | | | | | | SERVICES, | | | | | | CORE | | + + + + + + | LYMPHOCYTE | 18.5 | 18.0 - 42.0 % | [facility] | | | % | | | LABORATORY | | | | | | SERVICES, | | | | | | CORE | | + + + + + + | MONOCYTE % | 15.7 (H) | 3.5 - 9.0 % | [facility] | | | | | | LABORATORY | | | | | | SERVICES, | | | | | | CORE | | + + + + + + | EOS % | 5.3 (H) | 1.0 - 3.0 % | [facility] | | | | | | LABORATORY | | | | | | SERVICES, | | | | | | CORE | | + + + + + + | BASO % | 0.6 | 0.0 - 2.0 % | [facility] | | | | | | LABORATORY | | | | | | SERVICES, | | | | | | CORE | | + + + + + + | IG% | 0.4 | 0.0 - 0.6 % | [facility] | | | | | | LABORATORY | | | | | | SERVICES, | | | | | | CORE | | + + + + + + | NEUTROPHIL | 5.50 | 1.80 - 7.70 | [facility] | | | # | | K/cu mm | LABORATORY | | | | | | SERVICES, | | | | | | CORE | | + + + + + + | LYMPHOCYTE | 1.71 | 1.00 - 4.80 | [facility] | | | # | | K/cu mm | LABORATORY | | | | | | SERVICES, | | | | | | CORE | | + + + + + + | MONOCYTE # | 1.45 (H) | 0.10 - 0.90 | [facility] | | | | | K/cu mm | LABORATORY | | | | | | SERVICES, | | | | | | CORE | | + + + + + + | EOS # | 0.49 | 0.00 - 0.50 | [facility] | | | | | K/cu mm | LABORATORY | | | | | | SERVICES, | | | | | | CORE | | + + + + + + | BASO # | 0.06 | 0.00 - 0.10 | [facility] | | | | | K/cu mm | LABORATORY | | | | | | SERVICES, | | | | | | CORE | | + + + + + + | IG# | 0.04 (H) | 0.00 - 0.03 | [facility] | [...] [facility] | [address] | [place] [address] | | | SERVICES, CORE | [address] | | | + + + + + SEDIMENTATION RATE (12/22/2013 3:09 PM PDT) + +-------+ + + + | Component | Value | Ref Range | Performed | Pathologist | | | | | At | Signature | + +-------+ + + + | SEDIMENTATI | 29 | 0 - 30 mm/hr | [facility] [...] | + + + + + | [facility] | [address] | [place] [address] | | | SERVICES, CORE | [address] | | | + + + + + COMPLETE METABOLIC SET (NA,K,CL,CO2,BUN,CREAT,GLUC,CA,AST,ALT,BILI TOTAL,ALK PHOS,ALB,PROT TOTAL) (12/22/2013 3:09 PM PDT) + +---------+ + + + | Component | Value | Ref Range | Performed | Pathologist | | | | | At | Signature | + +---------+ + + + | GLUCOSE, | 104 (H) | 60 - 99 mg/dL | [facility] | | | PLASMA | | | LABORATORY | | | (LAB) | | | SERVICES, | | | | | | CORE | | + +---------+ + + + | BUN, PLASMA | 23 (H) | 6 - 20 mg/dL | [facility] | | | (LAB) | | | LABORATORY | | | | | | SERVICES, | | | | | | CORE | | + +---------+ + + + | CREATININE | 0.99 | 0.60 - 1.10 | [facility] | | | PLASMA | | mg/dL | LABORATORY | | | (LAB) | | | SERVICES, | | | | | | CORE | | + +---------+ + + + | EGFR | >60 | >60 mL/min | [facility] | | | - | | | LABORATORY | | | BAHAMIAN | | | SERVICES, | | | | | | CORE | | + +---------+ + + + | EGFR NON | 55 (L) | >60 mL/min | [facility] | | | -REI | | | LABORATORY | | | RICAN | | | SERVICES, | | | | | | CORE | | + +---------+ + + + | SODIUM, | 139 | 136 - 145 | [facility] | [...] +---------+ + + + | CHLORIDE, | 104 | 97 - 108 mmol/L | [facility] [...] +---------+ + + + | CALCIUM, | 8.9 | 8.6 - 10.2 | [facility] | | | PLASMA | | mg/dL | LABORATORY | | | (LAB) | | | SERVICES, | | | | | | CORE | | + +---------+ + + + | BILIRUBIN | 0.3 | 0.3 - 1.2 mg/dL | [facility] | | | TOTAL | | | LABORATORY | | | | | | SERVICES, | | | | | | CORE | | + +---------+ + + + | TOTAL | 7.0 | 6.4 - 8.2 g/dL | [facility] [...] + + + | ALK PHOS | 101 | 53 - 141 U/L | [facility] | | | | | | LABORATORY | | | | | | SERVICES, | | | | | | CORE | | + +---------+ + + + | AST(SGOT) | 19 | 15 - 41 U/L | [facility] | | | | | | LABORATORY | | | | | | SERVICES, | | | | | | CORE | | + +---------+ + + + | ALT (SGPT) | 21 | 12 - 60 U/L | [facility] [...] [facility] | [address] | [place] [address] | | | SERVICES, CORE | [address] | | | + + + + + documented in this encounter Visit Diagnoses + + | Diagnosis | + + | Rheumatoid arthritis | + + documented in this encounter"
--- OUTSIDE RECORDS SUMMARY | ~2019-05-17 | XMS | Encounter Summary ---
Demographics + + + | Address | [address] | | | [place] [address] | + + + | Home Phone | | + + + | Preferred Language | Unknown | + + + | Marital Status | | + + + | Sikh Affiliation | Unknown | + + + | Race | White | + + + | Ethnic Group | Not or | + + + Author + + + | Author | [facility] | + + + | Organization | [facility] | + + + | Address | Unknown | + + + | Phone | Unavailable | + + + Support + + +---------+ + | Name | Relationship | Address | Phone | + + +---------+ + | Alon Santiago | ECON | Unknown | | + + +---------+ + Care Team Providers + +------+ + | Care Drawing In Machine Tender Name | Role | Phone | + +------+ + | JhonyosephNathan | PCP | | + +------+ + Reason for Visit + + + | Reason | Comments | + + + | Follow-up visit [...] | arthritis(71 | Sophia K, | [address] [facility] | | | | | 4.0) ([facility]) | [place] [address] | | | | | Myalgia and | [address] | [address] [place], | | | | | myositis, | [place], | [place] | | | | | unspecified | [place] [address] | [address] | | | | | Procedures | Phone: | Phone: | | | | | [place] | [phone] | [phone] | | | | | OFFICE/OUTPT | Fax: | Fax: | | | | | | [phone] | [phone] | | | | | VISIT,EST,LE | | | | | | | PASQUALE III | | | +--------+--------+ + + + + Encounter Details +--------+---------+ + + + | Date | Type | Department | Care Team | Description | +--------+---------+ + + + | 06/14/ | Office | Rheumatology at | Rosas Lucia MD | Rheumatoid arthritis | | 2015 | Visit | Physicians [facility] | [address] [facility] | ([facility]) (Primary Dx) | | | | [address] [facility] | [address] [place], | | | | | [place] Mailcode: | [place] [address] | | | | | [address] Physician's | [phone] | | | | | Francy, [facility] Floor | | | | | | [place], [place] | | | | | | [address] | | | | | | [phone] | | | +--------+---------+ + + + [...] + + + | Blood Pressure | 145/59 | 06/14/2015 1:05 PM | | | | | PST | | + + + + + | Pulse | 86 | 06/14/2015 1:05 PM | | | | | PST | | + + + + + | Temperature | 36.8 C (98.2 F) | 06/14/2015 1:05 PM | | | [...] + + + + | Weight | 88.8 kg (195 lb 11.2 | 06/14/2015 1:05 PM | With brace | | | oz) | PST | | + + + + + | Height | - | - | | + + + + + | Body Mass Index | 32.57 | 09/08/2014 10:52 AM | | | | | PDT | | + + + + + documented in this encounter Progress Notes Rosas Lucia MD - 06/14/2015 12:53 PM PSTFormatting of this note might be different from t he original. RHEUMATOLOGY NEW PATIENT CONSULT This consultation was requested by: Tavia Linda, KALA [address] [place] [address] fax: [phone] CC: joint pain HPI: Ms Santiago is a 73 y.o. female, here for consultation from regarding diagnosis, and pos sible change in therapy for joint pain. She has had joint pain for the past 10-15 years ago and has worsened recently in the past c ouple of years. Her PCP diagnosed her with RA on the basis of labs but Dr Shelton, who was h Retail Marketing Executive, was not sure if the symptoms were from RA. She has been taking methotrexa te and Plaquenil. She feels that it has helped and feels that the only way to be sure will b e to discontinue it. She is not doing very well after her rotator cuff surgery. She has withdrawal with Dilaudid . The left ankle is swelling up and the toes are hurting from hammer toes. The neck is sti ff all the time from a pinched nerve. She sleeps in a recliner. The knee has a torn meniscus . These become better with steroid shots. The pain is worse when she goes up and down. Rest helps. She is stiff for a couple of hours in the morning. The base of the thumb hurts but is better today. Other joints are painful randomly. She is taking methotrexate 10 mg a week an d Plaquenil 400 mg a day. She is tired all the time and is less tender to the touch. She hurts all over in the muscle s and the joints. Sleep is not refreshing. She does not have much headaches. She has a brain fog. She gets pain randomly in different areas all the time. The muscles ache all the time. She will be seeing Tavia tomorrow for the fibromyalgia. She used prednisone in the past and made her depressed and she gained weight. She does not know if it helped her with the pain. I reviewed the patient's records. Pertinent details are: joint pain ROS: scanned in Epic PMH: Past Medical History Diagnosis Date Fibromyalgia Arthropathy, unspecified, site unspecified Other general symptoms(780.99) IBS (irritable bowel syndrome) HTN (hypertension), benign Endometriosis Melanoma (HCC) PSH: Past Surgical History Procedure Laterality Date Laparotomy 1959 Pr foot/toes surgery proc unlisted Appendectomy Cataract removal Hysterectomy with ovaries age 32 Retinal detachment repair Repair of cystocele and rectocele Bunion surgery Cholecystectomy Meds: Current Outpatient Prescriptions Medication Sig Ascorbic Acid (VITAMIN C) 500 mg OR CHEW 500 mg twice daily busPIRone 5 mg oral tablet Take 7.5 mg by mouth three times daily. CALCIUM CARBONATE/VITAMIN D2 (CALCIUM + VITAMIN D ORAL) Take 1 tablet by mouth two time s daily. Calcium 600 mg, D3 400 IU cholecalciferol, Vitamin D3, 1,000 unit oral tablet Take 2,000 Units by mouth two times daily. CHONDROITIN SULFATE A ORAL Take 1,250 mg by mouth two times daily. docusate sodium (COLACE) 100 mg oral capsule Take 1 capsule by mouth two times daily. folic acid 1 mg oral tablet Take 1 tablet by mouth once daily. GLUC GARZA/CHONDRO GARZA A/VIT C/MN (GLUCOSAMINE 1500 COMPLEX ORAL) Take 2 tablets by mouth t wo times daily. hydrochlorothiazide 25 mg oral tablet Take 12.5 mg by mouth once daily. hydroxychloroquine (PLAQUENIL) 200 mg oral tablet Take 1 tablet by mouth two times nadine y. losartan 25 mg oral tablet Take 50 mg by mouth once daily. Lysine 500 mg OR CAPS 1 tablet daily methotrexate 2.5 mg oral tablet Take 4 tablets by mouth every seven days. MULTIVIT,CA,MIN/D3/HERBAL #161 (ESTROVEN PM ORAL) Take by mouth. naproxen sodium (ALEVE) 220 mg oral capsule Take 220 mg by mouth three times daily. naproxen-diphenhydramine (ALEVE PM) 220-25 mg oral tablet Take 1 tablet by mouth once d aily at bedtime. nystatin 100,000 unit/gram topical cream Apply liberally to the affected areas BID ranitidine (ZANTAC) 150 mg Oral tablet Take 150 mg by mouth as needed. VIT A/VIT C/VIT E/ZINC/COPPER (ICAPS AREDS ORAL) [...] her mother. Rapid 3 Exam: Vital Signs: There were no vitals taken for this visit. Pain Score: Gen: Well nourished, well developed, [...] pain. She has history of fibromyalgia and RA. She has been receiving methotrexate and plaquenil for nearly two and a half years. She is doing well from the RA perspective. The duration of morning stiffness quach s declined significantly but the pain is the same. There is no synovitis on exam. She does n ot have any extra-articular features of RA. She has a host of additional issues related to f ibromyalgia, rotator cuff tear and backache that are unrelated to the RA. I will get an xray of the back to look at the cause of the pain. The clinical features are more like DJD. Plan: I reviewed the patient s questionnaire which included more than 10 review of systems. I s pent 20 minutes [id number] with the patient with over 50% in counseling the patient regard ing joint pain. Orders Placed This Encounter X-RAY SPINE LUMBOSACRAL 2 VIEWS CBC, W/ DIFF Complete Metabolic Panel ESR (Sedimentation rate) CRP (C-reactive protein) traMADol 50 mg oral tablet traZODone 50 mg oral tablet busPIRone 7.5 mg oral tablet DISCONTD: Solifenacin Succinate 10 mg oral tablet Continue current medications. Review in 24 weeks. docu mented in this encounter Plan of Treatment Not on filedocumented as of this encounter Results C-REACTIVE PROTEIN (06/15/2015 12:05 PM PST) + +-------+ + + + | Component | Value | Ref Range | Performed | Pathologist | | | | | At | Signature | + +-------+ + + + | C-REACTIVE | 7.7 | <10.0 mg/L | [facility] | | | PROTEIN | | | LABORATORY | | | | | | SERVICES, | | | | | | CORE | | + +-------+ + + + + + | Specimen | + + | Blood - Blood | | (substance) | + + + + + | Narrative | Performed At | + + + | New method, new reference range and new reporting units as of | [facility] | | 11/26/2013. | LABORATORY | | | [place] | + + + + + + + + | Performing | Address | City/State/Zipcode | Phone Number | | Organization | | | | + + + + + | [facility] | [address] | [place] [address] | | | [place] | [address] | | | + + + + + SEDIMENTATION RATE (06/15/2015 12:05 PM PST) + +--------+ + + + | Component | Value | Ref Range | Performed | Pathologist | | | | | At | Signature | + +--------+ + + + | SEDIMENTATI | 37 (H) | 0 - 30 mm/hr | [facility] | | | ON RATE | | | LABORATORY | | | | | | SERVICES, | | | | | | CORE | | + +--------+ + + + + + | Specimen | + + | Blood - Blood | | (substance) | + + + + + + + | Performing | Address | City/State/Zipcode | Phone Number | | Organization | | | | + + + + + | [facility] | [address] | [place] [address] | | | SERVICES, CORE | [address] | | | + + + + + COMPLETE METABOLIC SET (NA,K,CL,CO2,BUN,CREAT,GLUC,CA,AST,ALT,BILI TOTAL,ALK PHOS,ALB,PROT TOTAL) (06/15/2015 12:05 PM PST) + +---------+ + + + | Component | Value | Ref Range | Performed | Pathologist | | | | | At | Signature | + +---------+ + + + | GLUCOSE, | 97 | 60 - 99 mg/dL | [facility] | | | PLASMA | | | LABORATORY | | | (LAB) | | | SERVICES, | | | | | | CORE | | + +---------+ + + + | BUN, PLASMA | 19 | 6 - 20 mg/dL | [facility] | | | (LAB) | | | LABORATORY | | | | | | SERVICES, | | | | | | CORE | | + +---------+ + + + | CREATININE | 0.80 | 0.60 - 1.10 | [facility] | | | PLASMA | | mg/dL | LABORATORY | | | (LAB) | | | SERVICES, | | | | | | CORE | | + +---------+ + + + | EGFR | >60 | >60 mL/min | [facility] | | | - | | | LABORATORY | | | THAI | | | SERVICES, | | | | | | CORE | | + +---------+ + + + | EGFR NON | >60 | >60 mL/min | [facility] | | | -REI | | | LABORATORY | | | RICAN | | | SERVICES, | | | | | | CORE | | + +---------+ + + + | SODIUM, | 137 | 136 - 145 | [facility] | | | PLASMA | | mmol/L | LABORATORY | | | (LAB) | | | SERVICES, | | | | | | CORE | | + +---------+ + + + | POTASSIUM, | 3.9 | 3.4 - 5.0 | [facility] | [...] + + + | TOTAL CO2, | 27 | 21 - 32 mmol/L | [facility] | | | PLASMA | | | LABORATORY | | | (LAB) | | | SERVICES, | | | | | | CORE | | + +---------+ + + + | CALCIUM, | 9.2 | 8.6 - 10.2 | [facility] | [...] +---------+ + + + | TOTAL | 6.9 | 6.4 - 8.2 g/dL | [facility] | | | PROTEIN, | | | LABORATORY | | | PLASMA | | | SERVICES, | | | (LAB) | | | CORE | | + +---------+ + + + | ALBUMIN, | 3.5 | 3.5 - 4.7 g/dL | [facility] | | | PLASMA | | | LABORATORY | | | (LAB) | | | SERVICES, | | | | | | CORE | | + +---------+ + + + | ALK PHOS | 99 | 53 - 141 U/L | [facility] | | | | | | LABORATORY | | | | | | SERVICES, | | | | | | CORE | | + +---------+ + + + | AST(SGOT) | 25 | <=41 U/L | [facility] | | | | | | LABORATORY | | | | | | SERVICES, | | | | | | CORE | | + +---------+ + + + | ALT (SGPT) | 16 | <=60 U/L | [facility] | | [...] +---------+ + + + | POTASSIUM | Sl Hemo | | [facility] | | | CMNT | | | LABORATORY | | | | | | SERVICES, | | | | | | CORE | | + +---------+ + + + | AST CMNT | Sl Hemo | | [facility] | | | [...] + + | Blood - Blood | | (substance) | + + + + + | Narrative | Performed At | + + + | Sample hemolyzed. Results for K, Total Bili, Direct Bili, AST, | [facility] | | LDH, or HDL may be inaccurate. Refer to comment under test result. | LABORATORY | | GFR is estimated using the MDRD equation recommended by the National | SERVICES, CORE | | Kidney Disease Education Program. Estimated GFR Interpretive | | | Information: <60 mL/min/1.73 sq m Chronic Kidney | | | Disease <15 mL/min/1.73 sq m Kidney Failure | | | Estimated GFR greater that 60 mL/min/1.73 sq m is of limited clinical | | | value. The MDRD equation is not valid in the following situations: | | | - Patients under 18 years of age - Severe malnutrition or obesity | | | - Vegetarian diet - Rapidly changing kidney function | | + + + + + + + + | Performing | Address | City/State/Zipcode | Phone Number | | Organization | | | | + + + + + | [facility] | [address] | [place] [address] | | | SERVICES, [facility] | [address] | | | + + + + + X-RAY SPINE LUMBOSACRAL 2 VIEWS (06/14/2015 1:49 [...] RICHIE | | | | | | DIA HOPKINSuthor: | | | | | | YANA [...] | | + +---------+ + + | [facility] DEPARTMENT OF | | | | | RADIOLOGY | | | | + +---------+ + + documented in this encounter Visit Diagnoses + + | Diagnosis | + + | Rheumatoid arthritis (HCC) - Primary | + + documented in this encounter"
--- OUTSIDE RECORDS SUMMARY | ~2019-05-17 | XMS | Encounter Summary ---
Demographics + + + | Address | [address] | | | [place] [address] | + + + | Home Phone [...] | Author | [facility] | | | and Azana | + + + | Organization | [facility] | | | and Azana [...] [place], [place] | | | | | [address] | | + + + + + | Helena Doherty | ECON | [place], | | | | | [place] [address] | | + + + + + Care Team Providers + +------+ + | Care Physician Compensation Analyst Name | Role | Phone | + +------+ + | Nathan Luevano DO | PCP | | + +------+ + Encounter Details +--------+ + + + + | Date | Type | Department | Care Team | Description | +--------+ + + + + | 09/13/ | Orders Only | [facility] | Conversion | | | 2018 | | NEPHROLOGY [place] | Transaction, | | | | | [address] [place] | Provider Unknown | | | | | [address] [place], [place] | | | | | | [address] | (Fax) | | | | | [phone] | | | +--------+ + + + [...] | | | | | [place] [address] | | | | | | [phone] | | | | | | | | | | | | [employer] | | +--------+ + + + + documented as of this encounter Procedures + +--------+ + + + | Procedure Name | Priori | Date/Time | Associated Diagnosis | Comments | | | ty | | | | + +--------+ + + + | EXTERNAL LAB: CBC | Routin | 09/13/2018 | | Results for this | | | e | 10:45 AM | | procedure are in the | | | | PDT | | results section. | + +--------+ + + + | SEDIMENTATION RATE, | Routin | 09/13/2018 | | Results for this | | AUTOMATED | e | 10:45 AM | | procedure are in the | | | | PDT | | results section. | + +--------+ + + + | COMPREHENSIVE | Routin | 09/13/2018 | | Results for this | | METABOLIC PANEL | e | 10:45 AM | | procedure are in the | | | | PDT | | results section. | + +--------+ + + + documented in this encounter Results Sedimentation rate, automated (09/13/2018 10:45 AM PDT) + +-------+ + + + | Component | Value | Ref Range | Performed | Pathologist | | | | | At | Signature | + +-------+ + + + | Sed Rate | 19 | 0 - 20 | EXTERNAL | | | | | [...] + +---------+ + + External Lab: CBC (09/13/2018 10:45 AM PDT) + + + + + + | Component | Value | Ref Range | Performed | Pathologist | | | | | At | Signature | + + + + + + | WBC | 6.8 | 4.5 - 11.0 10 | EXTERNAL | | | | | | LAB | | + + + + + + | RED CELL | 3.83 | 3.8 - 5.1 10 | EXTERNAL | | | COUNT | | | LAB | | + + + + + + | Hgb | 12.2 | 12.0 - 16.0 | EXTERNAL | | | | | g/dL | LAB | | + + + + + + | Hematocrit, | 37.4 | 35 - 45 % | EXTERNAL | | | POC | | | LAB | | + + + + + + | MCV | 97.7 | 81 - 99 fL | EXTERNAL [...] + + + + | Platelet | 251 | 140 - 440 K/ L | EXTERNAL | | | Count | | | LAB | | | Plasma | | | | | + + + + + + | RDW-CV | 13.9 | 10.5 - 15.0 % | EXTERNAL [...] + + + | % Segmented | 67.9 | 39 - 80 % | EXTERNAL | | | | | | LAB | | | Neutrophils | | | | | + + + + + + | % | 21.4 (A) | 24 - 44 % | EXTERNAL | | | Lymphocytes | | | LAB | | + + + + + + | % Monocytes | 9.2 | 0 - 12 % | EXTERNAL | | | | | | LAB | | + + + + + + | % | 1.0 | 0 - 6 % | EXTERNAL | | | Eosinophils | | | LAB | | + + + + + + | % Basophils | 0.5 | 0 - 2 % | EXTERNAL [...] + +---------+ + + Comprehensive Metabolic Panel (09/13/2018 10:45 AM PDT) + +--------+ + + + | Component | Value | Ref Range | Performed | Pathologist | | | | | At | Signature | + +--------+ + + + | Glucose, | 94 | 70 - 100 mg/dL | EXTERNAL | | | Fasting | | | LAB | | + +--------+ + + + | BUN | 30 (A) | 6 - 23 mg/dL | EXTERNAL | | | | | | LAB | | + +--------+ + + + | Creatinine | 1.17 | 0.70 - 1.18 | EXTERNAL | | | | | mg/dL | LAB | | + +--------+ + + + | BUN/Creatin | 25.6 | 6.0 - 28.6 | EXTERNAL | | | ine Ratio | | | LAB | | + +--------+ + + + | Calcium | 9.5 | 8.5 - 10.3 | EXTERNAL | | | | | mg/dL | LAB | | + +--------+ + + + | Protein, | 6.2 | 6.0 - 8.3 g/dL | EXTERNAL | | | Total | | | LAB | | + +--------+ + + + | Albumin | 4.0 | 3.5 - 5.0 | EXTERNAL | | | | | | LAB | | + +--------+ + + + | Globulin | 2.2 | 1.8 - 3.5 | EXTERNAL | | | | | | LAB | | + +--------+ + + + | A/G Ratio | 1.8 | 1.1 - 2.4 | EXTERNAL | | | | | | LAB | | + +--------+ + + + | Bilirubin | 0.3 | 0.0 - 1.2 mg/dL | EXTERNAL | | | Total | | | LAB | | + +--------+ + + + | ALP, | 76 | 31 - 130 | EXTERNAL | | | External | | | LAB | | + +--------+ + + + | ALT | 14 | 7 - 52 U/L | EXTERNAL | | | | | | LAB | | + +--------+ + + + | AST | 14 | 13 - 39 U/L | EXTERNAL | | | | | | LAB | | + +--------+ + + + | Na | 142 | 132 - 143 | EXTERNAL | | | | | mmol/L | LAB | | + +--------+ + + + | K | 4.1 | 3.6 - 5.1 | EXTERNAL | | | | | mmol/L | LAB | | + +--------+ + + + | Cl | 106 | 95 - 112 mmol/L | EXTERNAL | | | | | | LAB | | + +--------+ + + + | CO2 | 25 | 19 - 31 mmol/L | EXTERNAL | | | | | | LAB | | + +--------+ + + + | Anion Gap | 15.1 | 7 - 21 mmol/L | EXTERNAL | | | | | | LAB | | + +--------+ + + + | Estimated | 45 (A) | 60 - 140 mg/dL | [...]
--- OUTSIDE RECORDS SUMMARY | ~2019-05-17 | XMS | Encounter Summary ---
Demographics + + + | Address | [address] | | | [place] [address] | + + + | Home Phone | | + + + | Preferred Language | Unknown | + + + | Marital Status | | + + + | Adventist Affiliation | Unknown | + + + [...] Team Providers + +------+ + | Care Hedge Fund Principal Name | Role | Phone | + +------+ + | Nathan Luevano | PCP | | + +------+ + Reason for Visit + + + | Reason | Comments | + + + | Update from Patient | | + + + Encounter Details +--------+ + + + + | Date | Type | Department | Care Team | Description | +--------+ + + + + | 11/17/ | MyChart | Rheumatology at | Tavia Zuniga | RE: Ashly Santiago | | 2016 | Encounter | Physicians [facility] Donato, MACHINIST APPRENTICE [address] | | | | | [address] | | | | | [place] Mailcode: | [place], [place] | | | | | [address] Physician's | [address] | | | | | [address], [address] Floor | [phone] | | | | | [place], [place] | | | | | | [address] | | | | | | [phone] | | | +--------+ + + + [...]
--- OUTSIDE RECORDS SUMMARY | ~2019-05-17 | XMS | Encounter Summary ---
Demographics + + + | Address | [address] | | | [place] [address] | + + + | Home Phone [...] Team Providers + +------+ + | Care Synthetic Cloth Binding Cutter Name | Role | Phone | + +------+ + | Thee Boss MD | PCP | | + +------+ + Reason for Referral Physical Therapy (Routine) +--------+--------+ + + + + | Status | Reason | Specialty | Diagnoses / | Referred By | Referred To | | | | | Procedures | Contact | Contact | +--------+--------+ + + + + | Closed | | Physical | Diagnoses | Rea | Callie Pt Chh1 | | | | Therapy | Rheumatoid | MD Rosas | [address] | | | | | arthritis(71 | [address] | | | | | 4.0) ([facility]) | [address] | Mailcode: | | | | | Procedures | 2010 | [facility] | | | | | PHYSICAL | [facility] [place] | for Health | | | | | THERAPY | [address] | and Healing, | | | | | REFERRAL | Phone: | Building 1, | | | | | | [phone] | [address] | | | | | | Fax: | [place], [place] | | | | | | [phone] | [address] | | | | | | | Phone: | | | | | | | [phone] | | | | | | | Fax: | | | | | | | [phone] | +--------+--------+ + + + + Reason for Visit [...] | | Rheumatology | Diagnoses | | Dekylee, | | | | | Rheumatoid | Eleazar, | MD Colt | | | | | arthritis(71 | Sophia Kingsley, | [address] | | | | | 4.0) ([facility]) | [place] [address] | [address] | | | | | Myalgia and | [address] | [place], | | | | | myositis, | [place], | [place] | | | | | unspecified | [place] [address] | [address] | | | | | Procedures | Phone: | Phone: | | | | | [place] | [phone] | [phone] | | | | | OFFICE/OUTPT | Fax: | Fax: | | | | | | [phone] | [phone] | | | | | VISIT,EST,LE | | | | | | | PASQUALE III | | | +--------+--------+ + + + + Encounter Details +--------+---------+ + + + | Date | Type | Department | Care Team | Description | +--------+---------+ + + + | 06/02/ | Office | Rheumatology at | Rosas Lucia MD | Rheumatoid arthritis | | 2013 | Visit | Physicians [facility] | [address] | (Primary Dx) | | | | [address] | [address], | | | | | Amara Chatman Mailcode: | [place] [address] | | | | | OP09 Physician's | [phone] | | | | | Francy, [facility] | | | | | | [place], [place] | | | | | | [address] | | | | | | [phone] | | | +--------+---------+ + + + [...] + + + | Blood Pressure | 122/80 | 06/02/2014 8:43 AM | | | | | PST | | + + + + + | Pulse | 74 | 06/02/2014 8:43 AM | | | [...] Weight | 93.4 kg (206 lb) | 06/02/2014 8:43 AM | | | | | PST | | + + + + + | Height | 165.1 cm (5' 5") | 06/02/2014 8:43 AM | | | | | PST | | + + + + + | Body Mass Index | 34.28 | 06/02/2014 8:43 AM | | | | | PST | | + + + + + documented in this encounter Patient Instructions Patient Instructions Rosas Lucia MD - 06/02/2014 8:59 AM PSTPlease have the hands checke d for carpal tunnel syndrome and consider using a hand splint. documented in this encounter Progress Notes Rosas Lucia MD - 06/02/2014 8:41 AM PSTFormatting of this note might be different from t he original. RHEUMATOLOGY NEW PATIENT CONSULT This consultation was requested by: Tavia Linda, KALA [address] [place] [address] fax: [phone] CC: joint pain HPI: Ms Santiago is [...] labs but Dr Shelton, who was her Asphalt Spreader, was not sure if the symptoms were from RA. She has been taken methotrexate and Plaquenil. She is not sure if that has helped and feels that the only way to be sure will be to discontinue it. She was doing fine till November and then she started having pain in the knees and difficulty i n getting up and down the stairs. The neck is stiff all the time but not painful. She does n ot feel any spasm around the neck. It does not hurt to move it in all directions. There are no radicular pain and the pain is more like a dull ache. The knee has a torn meniscus. These become better with steroid shots. The pain is worse when she goes up and down. Rest helps. She is stiff for 1-2 hours in the morning. She has pain on the side of the right hip. The ba se of the thumb hurts but is better today. Other joints are painful randomly. She is taking methotrexate 10 mg a week and Plaquenil 400 mg a day. She had surgery for a trigger finger l ast week. No history of malar rash, oral or genital ulcers, photosensitivity, discoid rash, Raynaud's phenomenon, serositis, low white cell counts, tight skin, muscle weakness, and proteinuria . She has dry eyes and mouth since she started her medications. Eyes do not feel gritty and s he does not need to drink a lot of water. She is tired all the time and is tender to the touch. She hurts all over in the muscles and the joints. Sleep is not refreshing. [...] Cholecystectomy Meds: Current Outpatient Prescriptions Medication Sig ACETAMINOPHEN (TYLENOL ARTHRITIS ORAL) Take by mouth. Ascorbic Acid (VITAMIN C) 500 mg OR CHEW 1000 mg, 1 chewable per day buprenorphine (BUTRANS) 10 mcg/hour transdermal patch weekly Apply 1 patch to skin ever y seven days. busPIRone 5 mg oral tablet Take 5 mg by mouth three times daily. CALCIUM CARBONATE/VITAMIN D2 (CALCIUM + VITAMIN D ORAL) Take 1 tablet by mouth two time s daily. Calcium 600 mg, D3 400 IU cholecalciferol, Vitamin D3, 1,000 unit oral tablet Take 1,000 Units by mouth once nadine y. CHONDROITIN SULFATE A ORAL Take 1,250 mg by mouth two times daily. docusate sodium (COLACE) 100 mg oral capsule Take 1 capsule by mouth two times daily. DULoxetine (CYMBALTA) 20 mg Oral capsule,delayed release(DR/EC) Take 20 mg by mouth thr ee times daily. ERGOCALCIFEROL, VITAMIN D2, (VITAMIN D ORAL) Take 4,000 Units by mouth once daily. esterified estrogens 0.15 mg oral tablet Take 1 each by mouth once daily. folic acid 1 mg oral tablet Take 1 tablet by mouth once daily. GLUC HCL/GLUC GARZA/AC-D-GLUCOS (GLUCOSAMINE COMPLEX ORAL) Take 1,500 mg by mouth. GLUC GARZA/CHONDRO GARZA A/VIT C/MN (GLUCOSAMINE 1500 [...] sodium (ALEVE) 220 mg oral capsule Take by mouth. nystatin 100,000 unit/gram topical cream Apply liberally to the affected areas BID ranitidine (ZANTAC) 150 mg Oral tablet Take 150 mg by mouth as needed. SOFT CHEWS CALCIUM OR 3 day SOY ISOFLAVONES OR 1-3 day TYLENOL PM OR 1 @ HS valsartan 40 mg Oral tablet Take 40 mg by mouth once daily. VIT A/VIT C/VIT E/ZINC/COPPER (ICAPS AREDS ORAL) [...] upper and lower extremities Skin: no abnormalities Neuro: strength hard to assess Lab Results Component Value Date ESR 25 04/07/2013 Impression: This is a 73 y.o. female, here for evaluation of joint pain. She has history of fibromyalgia and joint pain. She has been receiving methotrexate and plaquenil for more sue n 15 months. Earlier, she did not think that this was helping her but noted a worsening of s ymptoms when she discontinued methotrexate. She then resumed it and, currently, she does no t have any synovitis or extra-articular features of RA. Her labs from yesterday including c bc, cmp, esr and crp are normal. Plan: I reviewed the patient s questionnaire which included more than 10 review of systems. I s pent 20 minutes [id number] with the patient with over 50% in counseling the patient regard ing joint pain. Orders Placed This Encounter PHYSICAL THERAPY REFERRAL cholecalciferol, Vitamin D3, 1,000 unit oral tablet TURMERIC, BULK, MISC Continue current medications. Review in 12 weeks. OSdocu mented in this encounter Plan of Treatment Not on filedocumented as of this encounter Visit Diagnoses + + | Diagnosis | + + | Rheumatoid arthritis - Primary | + + documented in this encounter
--- OUTSIDE RECORDS SUMMARY | ~2019-05-17 | XMS | Encounter Summary ---
Demographics + + + | Address | [address] [facility] [facility] | | | [place] [address] | + + + | Home Phone [...] Author | [facility] | | | and Azana | + + + | Organization | [facility] | | [...] [place], [place] | | | | | [address] | | + + + + + | Helena Doherty | ECON | [place], | | | | | [place] [address] | | + + + + + Care Team Providers + +------+ + | Care Security Researcher Name | Role | Phone | + +------+ + | Nathan Luevano DO | PCP | | + +------+ + Encounter Details +--------+ + + + + | Date | Type | Department | Care Team | Description | +--------+ + + + + | 09/13/ | Orders Only | [facility] | Conversion | | | 2018 | | NEPHROLOGY [place] | Transaction, | | | | | [address] [place] | Provider Unknown | | | | | [address] [place], [place] | | | | | | [address] | (Fax) | | | | | [phone] | | | +--------+ + + + [...] | | | | | [place] [address] | | | | | | [phone] | | | | | | | | | | | | Director Of Field Service, [facility] | | +--------+ + + + [...] + + documented in this encounter Results External Lab: CBC (09/13/2018 10:45 AM PDT) [...] +--------+ + + + | Bilirubin | 0.6 | 0.0 - 1.2 mg/dL | EXTERNAL [...]
--- OUTSIDE RECORDS SUMMARY | ~2019-05-17 | XMS | Encounter Summary ---
Demographics + + + | Address | [address] | | | [place] [address] | + + + | Home Phone | | + + + | Preferred Language | Unknown | + + + | Marital Status | | + + + | Rastafarian Affiliation | 1077 | + + + | Race | Unknown | + + + | Ethnic Group | Unknown | + + + Author + + + | Author | [facility] | | | and Azana | + + + | Organization | [facility] | | | and Azana [...] [place], [place] | | | | | [address] | | + + + + + | Helena Doherty | ECON | [place], | | | | | [place] [address] | | + + + + + Care Team Providers + +------+ + | Care Lvn Name | Role | Phone | + [...] Description | +--------+--------+ + + + | 09/12/ | Refill | [facility] | Andrew Miranda, | Medication Refill | | 2019 | | PHYSIATRY [address] | PA-C [address] | | | | | [place], | [address] [place] | | | | | [place] [address] | [place] [address] | | | | | [phone] | [phone] | | | | | | | | +--------+--------+ + [...] | | | | | [place] [address] | | | | | | [phone] | | | | | | | | | | | | Conventional Underwriter, [facility] | | +--------+ + + + + documented as of this encounter Visit Diagnoses Not on filedocumented in this encounter"
--- OUTSIDE RECORDS SUMMARY | ~2019-05-17 | XMS | Encounter Summary ---
Demographics + + + | Address | [address] [facility] [facility] | | | [place] [address] | + + + | Home Phone | | + + + | Preferred Language | Unknown | + + + | Marital Status | | + + + | Amish Affiliation | 1077 | + + + | Race | Unknown | + + + | Ethnic Group | Unknown | + + + Author + + + | Author | [facility] | | | and Azana | + + + | Organization | [facility] | | [...] [place], [place] | | | | | [address] | | + + + + + | Helena Doherty | ECON | [place], | | | | | [place] [address] | | + + + + + Care Team Providers + +------+ + | Care Shingle Bolt Cutter Name | Role | Phone | [...] | +--------+ + + + + | 01/30/ | Telephone | [facility] | Andrew Miranda, | Medication Question | | 2017 | | PHYSIATRY [address] | PA-C [address] | | | | | [place], | [address] [place] | | | | | [place] [address] | [place] [address] | | | | | [phone] | [phone] | | | | | | | [...] | | | | | [place] [address] | | | | | | [phone] | | | | | | | | | | | | District Plant Superintendent, [facility] | | +--------+ + + + + documented as of this encounter Visit Diagnoses Not on filedocumented in this encounter"
--- OUTSIDE RECORDS SUMMARY | ~2019-05-17 | XMS | Encounter Summary ---
Demographics + + + | Address | [address] [facility] [facility] [facility] | | | [place] [address] | + + + | Home Phone | | + + + | Preferred Language | Unknown | + + + | Marital Status | | + + + | Mormon Affiliation | Unknown | + + + | Race | White | + + + | Ethnic Group | Not or | + + + Author + + + | Author | [facility] | + + + | Organization | [facility] | + + + | Address | Unknown | + + + | Phone | Unavailable | + + + Support + + +---------+ + | Name | Relationship | Address | Phone | + + +---------+ + | Alon Santiago | ECON | Unknown | | + + +---------+ + Care Team Providers + +------+ + | Care Territory Sales Manager Name | Role | Phone | [...] [address] | | | | | | [place], [place] | | | | | | [address] | | | +--------+ + + + [...]
--- OUTSIDE RECORDS SUMMARY | ~2019-05-17 | XMS | Encounter Summary ---
Demographics + + + | Address | [address] | | | [place] [address] | + + + | Home Phone | | + + + | Preferred Language | Unknown | + + + | Marital Status | | + + + | Episcopal Affiliation | 1077 | + + + | Race | Unknown | + + + | Ethnic Group | Unknown | + + + Author + + + | Author | [facility] | | | and Azana | + + + | Organization | [facility] [...] [place], [place] | | | | | [address] | | + + + + + | Helena Doherty | ECON | [place], | | | | | [place] [address] | | + + + + + Care Team Providers + +------+ + | Care Major Assembly Lineman Name | Role | Phone | + [...] | | | Trochanteric | Ave | [address] Phone: | | | | | bursitis, | [place], | [phone] | | | | | right hip | [place] | Fax: | | | | | Fibromyalgia | [address] | [phone] | | | | | Procedures | Phone: | | | | | | PT Noel w/ | [phone] | | | | | | Aiyana | Fax: | | | | | | [place] | [phone] | | +--------+--------+ + + + + Encounter Details +--------+---------+ + + + | Date | Type | Department | Care Team | Description | +--------+---------+ + + + | 06/19/ | Office | [facility] | Schmidtgall, | Trochanteric | | 2018 | Visit | [facility] PT | Sophia Kingsley PA-C | bursitis of both | | | | OP [address] | [address] | hips (Primary Dx); | | | | [place] | [place], [place] | Neck pain; | | | | [address] | [address] | Fibromyalgia | | | | [phone] | [phone] | | | | | | | | | | | | Aiyana Fish S, PT | | | | | | [address] | | | | | | [place] | | | | | | [address] | | | | | | | [...] encounter Progress Notes Aiyana Fish, PT - 06/19/2018 1:00 PM PSTFormatting of this note might be different fro m the original. [facility] TH[facility] PT OP [address] [place] [address] Physical Therapy Daily Treatment Note Date: 06/19/2018 Patient Information Patient Name: Ashly Santiago Date of : 1940 Age: 78 y.o. Encounter Diagnoses Code Name Primary? M70.61, M70.62 Trochanteric bursitis of both hips Yes M54.2 Neck pain M79.7 Fibromyalgia Date of Onset: 04/10/2018 Referring Provider: Sophia Bush PA-C Rehab Precautions Office Visit from 04/17/2018 in [facility] PT OP Rehab Precautions Precautions None Rehab Learning Style Office Visit from 04/17/2018 in [facility] PT OP Office Visit fro m 10/19/2016 in [facility] PT OP Learning Style Patient's Optimum Learning Style listening, reading, observation, performance of task lis tening, reading, observation, performance of task Start Time: 1307 Stop time: 1405 Duration: 58 minutes Timed Treatment Codes: 55 minutes # of PT Visits to Date: 8 Subjective: Pt reports that her neck and upper back have been doing well but she continues to have pain in her right knee and her hips especially when walking. Gait is antalgic today coming into the clinic Pain Assessment: Pain Rating Pre Assessment: 7 Location: hips, legs Objective: Education: Persistent pain education: "Hurt does not equal Harm" Exercise: Calf stretch Manual Treatment: Myofascial release and positional release therapy: Dural tube mobilizati on, left iliopsoas, right quads, upper and mid thoracic spine, and cervical spine. Assessment: Good response to treatment. Fascial release resulted in improved mobility in the mid thora cic spine with a smoother less antalgic gait following the session. Plan: Continue with manual therapy and development of home program Electronically signed by: Aiyana Fish PT, 06/19/2018 14:09 Patient Name: Ashly Santiago/: 1940/ documented in [...] | | | | | [place] [address] | | | | | | [phone] | | | | | | | | | | | | Embedded Systems Software DeveloperNaomi | | +--------+ + + + + documented as of this encounter Visit Diagnoses + + | Diagnosis | + + | Trochanteric bursitis of both hips - Primary Enthesopathy of hip region | + + | Neck pain Cervicalgia | + + | Fibromyalgia Mylagia and myositis, unspecified | + + documented in this encounter
--- OUTSIDE RECORDS SUMMARY | ~2019-05-17 | XMS | Encounter Summary ---
Demographics + + + | Address | [address] [facility] | | | [place] [address] | + + + | Home Phone [...] [facility] | | | and Azana | + + + | Organization | [facility] | | | and [...] [place], [place] | | | | | [address] | | + + + + + | Helena Doherty | ECON | [place], | | | | | [place] [address] | | + + + + + Care Team Providers + +------+ + | Care Promotions Assistant Sales Marketing Name | Role | Phone | + [...] | | | bursitis, | Ave | [address] Phone: | | | | | left hip | [place], | [phone] | | | | | M70.61 | [place] | Fax: | | | | | (ICD-10-CM) | [address] | [phone] | | | | | - | Phone: | | | | | | Trochanteric | [phone] | | | | | | bursitis, | Fax: | | | | | | right hip | [phone] | | | | | | M79.7 [...] Description | +--------+---------+ + + + | 10/21/ | Office | [facility] | Aiyana Fish, | Fibromyalgia | | 2019 | Visit | [facility] | PT [address] | (Primary Dx); Neck | | | | [address] | [place] | pain; Trochanteric | | | | [place] | [address] | bursitis of both | | | | [address] | | hips | | | | [phone] | | | +--------+---------+ + + + [...] encounter Progress Notes Aiyana Fish, PT - 10/21/2018 12:45 PM PDTFormatting of this note might be different fro m the original. [facility] [address] [place] [address] Physical Therapy Daily Treatment Note Date: 10/21/2018 Patient Information Patient Name: Ashly Snatiago Date of : 1940 Age: 78 y.o. Encounter Diagnoses Code Name Primary? M79.7 Fibromyalgia Yes M54.2 Neck pain M70.61, M70.62 Trochanteric bursitis of both hips Date of Onset: 04/10/2018 Referring Provider: Sophia Bush PA-C Rehab Precautions Office Visit from 04/17/2018 in [facility] TH[facility]Y PT OP Rehab Precautions Precautions None Rehab Learning Style Office Visit from 04/17/2018 in [facility] PT OP Office Visit fro m 10/19/2016 in [facility] PT OP Learning Style Patient's Optimum Learning Style listening, reading, observation, performance of task lis tening, reading, observation, performance of task Start Time: 1255 Stop time: 1339 Duration: 44 minutes Timed Treatment Codes: 44 minutes # of PT Visits to Date: 22 Subjective: Pt reports that she is having more right knee pain again, but generally doing better. She was able to take a 4 day trip to [place], [place] with her and tolerated the travel well. Pain Assessment: Pain Rating Pre Assessment: 4 Location: right knee, left pelvis Objective: Exercise: Once again encouraged her to go to her local fitness center and see what program s she could start that would be appropriate for her Manual Treatment: Myofascial release and positional release therapy: Dural tube mobilizat ion , mid thoracic spine, cervical spine and left pelvis and left hip. Assessment: Good response to treatment. Release of scar tissue around the left anterior pelvis was succ essful. She felt better following the treatment today. Plan: Continue with manual therapy and development of home program. Plan is to DC following next visit. Electronically signed by: Aiyana Fish, PT, 10/21/2018 15:02 Patient Name: Ashly Santiago/: 1940/ documented in this en counter Plan of Treatment +--------+ + + + + | Date | Type | Specialty | Care Team | Description | +--------+ + + + + | 05/19/ | Hospital | Radiology | Dennys Pineda PA-C | | | 2018 | Encounter | | [address] [facility] [facility] | | | | | | [address] [facility] | | | | | | [place] [address] | | | | | | [phone] | | | | | | | | | | | | Vegetable Farming SupervisorNaomi | | +--------+ + + + [...]
--- OUTSIDE RECORDS SUMMARY | ~2019-05-17 | XMS | Encounter Summary ---
Demographics + + + | Address | [address] [facility] [facility] [facility] [address] | | | [place] [address] | + + + | Home Phone [...] + + + | Author | [facility] | + + + | Organization | [facility] | + + + | Address | Unknown | + + + | Phone | Unavailable | + + + Support + + +---------+ + | Name | Relationship | Address | Phone | + + +---------+ + | Alon Santiago | ECON | Unknown | | + + +---------+ + Care Team Providers + +------+ + | Care Counter Maker Name | Role | Phone | [...] 2014 | Encounter | Physicians [facility] Donato, REPEAT PHOTOCOMPOSING MACHINE OPERATOR [address] | | | | | [address] | [address] | | | | | [place] Mailcode: | [place], [place] | | | | | [address] Physician's | [address] | | | | | Francy, [facility] Floor | [phone] | | | | | [place], [place] | | | | | | [address] | | | | | | [phone] | | | +--------+ + + + [...]
--- OUTSIDE RECORDS SUMMARY | ~2019-05-17 | XMS | Encounter Summary ---
Demographics + + + | Address | [address] | | | [place] [address] | + + + | Home Phone | | + + + | Preferred Language | Unknown | + + + | Marital Status | | + + + | Mosque Affiliation | 1077 | + + + | Race | Unknown | + + + | Ethnic Group | Unknown | + + + Author + + + | Author | [facility] | | | and Azana | + + + | Organization | [facility] | | | and Azana | + + + | Address | Unknown | + + + | Phone | Unavailable | + + + Support + + + + + | Name | Relationship | Address | Phone | + + + + + | Lima Santiago | KATERIN | [address] | | | | | [place], [place] | | | | | [address] | | + + + + + | Helena Doherty | ECON | [place], | | | | | [place] [address] | | + + + + + Care Team Providers + +------+ + | Care Street Cleaning Equipment Operator Name | Role | Phone | + +------+ + | Nathan Luevano DO | PCP | | + +------+ + Reason for Visit + + + | Reason | Comments | + + + | Abdominal Pain | | + + + | Diarrhea | | + + + | Constipation | | + + + | Bloated | | + + + Evaluate & Treat (Routine) +--------+--------+ + + + + | Status | Reason | Specialty | Diagnoses / | Referred By | Referred To | | | | | Procedures | Contact | Contact | +--------+--------+ + + + + | Closed | | Gastroenterol | Diagnoses | Bassem, | Babak, | | | | ogy | Diarrhea, | Nathan, DO | Joshua Parekh MD | | | | | unspecified | [address] | [address], | | | | | Patient is | [address] | [address] | | | | | having | [address] | [place], | | | | | symptoms and | [place], | [place] [address] | | | | | will call | [place] | Phone: | | | | | her pcp to | [address] | [phone] | | | | | send | Phone: | Fax: | | | | | referrals/Ae | [phone] | [phone] | | | | | tna/Bassem/s | Fax: | | | | | | elf | [phone] | | | | | | Procedures | | | | | | | OFFICE VISIT | | | | | | | REGULAR | | | +--------+--------+ + + + + Encounter Details +--------+---------+ + + + | Date | Type | Department | Care Team | Description | +--------+---------+ + + + | 09/18/ | Office | [facility] | Joshua Hilliard MD | Irritable bowel | | 2019 | Visit | GASTROENTEROLOGY | [address], [place] | syndrome with both | | | | [address] [place] | [address] [place], [place] | constipation and | | | | [address] [place], [place] | [address] | diarrhea (Primary | | | | [address] | | Dx) | | | | [phone] | | | +--------+---------+ + + + [...] + + + | Blood Pressure | 130/60 | 09/18/2018 2:37 PM | | | | | PDT | | + + + + + | Pulse | 82 | 09/18/2018 2:37 PM | | | [...] + + + + | Weight | 85.5 kg (188 lb 7.9 | 09/18/2018 2:37 PM | | | | oz) | PDT | | + + + + + | Height | 167.6 cm (5' 6") | 09/18/2018 2:37 PM | | | | | PDT | | + + + + + | Body Mass Index | 30.42 | 09/18/2018 2:37 PM | | | | | PDT | | + + + + + documented in this encounter Progress Notes Joshua Hilliard MD - 09/18/2018 2:30 PM PDT Subjective: Patient ID: Ashly Santiago is a 78 y.o. female. The patient comes in the office to discuss multiple gastrointestinal tract symptoms. Outsi de records are reviewed prior evaluation is reviewed She states that for approximately a year she's had a change in bowel pattern. This change is primarily episodes of diarrhea followed by passage of nose stool. By diarrhea the patien t means repetitive and progressively looser stools. She'll move her bowels 3-4 times before noon time. The initial stool is formed and then he gets progressively looser. She's had u rgency but no incontinence. There's been no blood or mucus in the stools. This will be fol lowed by 2-3 days without any stools. She'll take which she believes is a Metamucil capsule and then will move her bowels one to 2 times in the morning. She'll have several days of n ormal stool. She will then have a repeated episode of "clean out". Patient complains of ab dominal bloating particularly after the evening meal. She denies any particular foods that bring on the abdominal bloating. She does have associated increased bowel sounds. She occa sional a.m. nausea. She denies any nocturnal symptoms. She does have a history of overacti ve bladder and was recently changed from Detrol to another medication which she does not rec all. The patient had a colonoscopy in June 2016 3 adenomas removed without atypia. [facility] colonic biopsies at that time were negative for microscopic colitis She denies any partic ular foods or activities that bring on her episodes. She does have a history of back surger y and upcoming neck surgery which is been canceled. She'll also reports that she was told b y Drs. Jain's office to discontinue meloxicam due to decreased renal function. I was u tiole to document the exact laboratory value with respect to the same. She denies weight lo ss denies chills or fever. A diagnosis of IBS was suggested to the patient by her urologist . Patient was seen by myself in June 2017 for evaluation of diarrhea. Diarrhea at that time was treated with Questran and Metamucil. The patient is also wondering if she could go on a modified Mediterranean diet. Basically it consists of increased protein, increase fluid intake and exercise. I deferred opinion of the same as I have not reviewed her recent CMP. I encouraged her to discuss the same with her primary care physician Vitals: 09/18/18 1437 BP: 130/60 Pulse: 82 Resp: 16 PainSc: 0 - No pain Allergies Allergen Reactions Tramadol Nausea Only and [...] Only Esomeprazole Nausea Only Gabapentin Nausea Only Hydromorphone Nausea Only Isosorbide Dinitrate Other (See Comments) Dizziness, headache Morphine Nausea And Vomiting Morphine Sulfate Nausea Only Oxycodone Nausea Only Pregabalin Swelling Ankles Solifenacin Other (See Comments) Reaction: Choking Past Medical History: Diagnosis Date Abdominal pain Anxiety Bulging lumbar disc Cervical radiculopathy Left Cervical radiculopathy 11/28/2017 Chronic pain Chronic pain syndrome Cough Depression Diarrhea Displacement of lumbar intervertebral disc Diverticulosis DJD (degenerative joint disease), lumbar Dry mouth Essential hypertension Fibromyalgia GERD (gastroesophageal reflux disease) Hard of hearing 02/12/2017 hearing aids Hx of colonoscopy 05/23/2017 cecal and sigmoid colon polyps with tubular adenoma, recall in 5 years. Hypercholesterolemia Hypertensive arteriosclerotic cardiovascular disease IMPAIRED VISION Incontinence of urine Insomnia Intervertebral disc disorder with radiculopathy of lumbar region Left cervical radiculopathy Leg cramps Lipoma Lumbar foraminal stenosis 08/30/2016 Oral ulceration Osteoarthrosis Other idiopathic scoliosis, lumbar region PONV (postoperative nausea and vomiting) Precordial pain Pure hypercholesterolemia Rheumatoid arthritis(714.0) Sacroiliitis (HCC) 09/04/2012 Sjogren's syndrome (HCC) Trochanteric bursitis of both hips 11/28/2017 Past Surgical History: Procedure Laterality Date APPENDECTOMY 1960 Exploratory; [place] BLADDER SUSPENSION 2005 with Rectocele repair; Dr. Reid and Dr. Watkins BUNIONECTOMY 04/10/2007 Darlene's Bunion; Dr. Db Berrios CATARACT REMOVAL Bilateral 1996 [facility] CHOLECYSTECTOMY, LAPAROSCOPIC 07/11/2011 Dr. Marquez COLONOSCOPY 2003 [facility] COLONOSCOPY N/A 05/23/2017 Procedure: COLONOSCOPY; Surgeon: Joshua Hilliard MD; Location: [facility] EGD AND COLONOSCOPY 07/06/2009 [facility] Dr. Jc EGD AND COLONOSCOPY 2009 ELECTROCARDIOGRAM 05/19/2009 Dr. Boss ELECTROCARDIOGRAM 08/12/2009 Dr. Radha Stafofrd; [facility] ENDOSCOPY 07/07/2011 [facility]; Dr. Marquez FINGER TRIGGER RELEASE Right 05/28/2014 Middle finger; Dr. Donta Agarwal FINGER TRIGGER RELEASE FOOT NEUROMA SURGERY Left 1998 HEEL SPUR SURGERY Right 1997 Dr. Berrios HYSTERECTOMY, TOTAL ABDOMINAL 1972 [place] LUMBAR SPINE SURGERY Anterior 02/14/2017 Procedure: L4-5 Lateral Anterior Interbody Fusion, L5-S1 Transforaminal Lumbar Interbody F usion; Surgeon: Agusto Pereira MD; Location: [facility] MAIN OR NASAL SEPTUM SURGERY 06/06/2016 Dr. Lindsey; [facility] PERINEAL SKIN BRIDGE 02/[address] Reid RECTOCELE REPAIR 2006 with bladder suspension; Dr. Maranda Watkins RETINAL DETACHMENT SURGERY 1997 Dr. Andrade ROTATOR CUFF REPAIR Right 04/20/2015 Ruptured and Tendon repair Dr. [facility] TONSILLECTOMY 1944 [place], [place] Family History Problem Relation Age of Onset Parkinsonism Father Heart defect Mother enlarged Stroke Mother 70 Dementia Mother Heart disease Mother Alcohol abuse Sister Arthritis Sister Gout Sister No known problems Child No known problems Paternal Grandfather No known problems Paternal Grandmother No known problems Maternal Grandfather Heart defect Maternal Grandmother enlarged Heart disease Paternal Aunt Lung cancer Maternal Uncle Heart disease Maternal Aunt Social History Social History Marital status: Spouse name: LIMA SANTIAGO Number of children: 1 Years of education: N/A 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 Genitourinary: Positive for frequency. Musculoskeletal: Positive for back pain, neck pain and neck stiffness. All other systems reviewed and are negative. Objective: BP 130/60 | Pulse 82 | Resp 16 | Ht 1.676 m (5' 6") | Wt 85.5 kg (188 lb 7.9 oz) | BMI 30.42 kg/m Physical Exam Constitutional: She is oriented to person, place, and time. She appears well-developed and well-nourished. No distress. HENT: Head: Normocephalic and atraumatic. Right Ear: External ear normal. Left Ear: External ear normal. Nose: Nose normal. Mouth/Throat: Oropharynx is clear and moist. No oropharyngeal exudate. Eyes: Pupils are equal, round, and reactive to light. Conjunctivae and EOM are normal. Righ t eye exhibits no discharge. Left [...] Bowel sounds are normal. She exhibits no distension. There is no tendernes s. There is no rebound and no guarding. Musculoskeletal: She exhibits no edema, tenderness or deformity. Lymphadenopathy: She has no cervical adenopathy. Neurological: [...] normal. Nursing note and vitals reviewed. Assessment: Highly suspect irritable bowel syndrome Past history of colonic polyps a follow-up colonoscopy scheduled for 2021 Overactive bladder possible interstitial cystitis. Association of the same with IBS Reportedly decreased renal function possibly secondary to nonsteroidals All other medical problems being addressed by primary care physician Plan: Trial of IB guard Try to correlate activities and/or food intake with abdominal symptomatology documented in this enc ounter Plan of Treatment +--------+ + + + + | Date | Type | Specialty | Care Team | Description | +--------+ + + + + | 05/19/ | Hospital | Radiology | Dennys Pineda PA-C | | | 2018 | Encounter | | [address] | | | | | | [address] [facility] | | | | | | [place] [address] | | | | | | [phone] | | | | | | | | | | | | Licensing SpecialistNaomi | | +--------+ + + + + documented as of this encounter Visit Diagnoses + + | Diagnosis | + + | Irritable bowel syndrome with both constipation and diarrhea - Primary | + + documented in this encounter
--- OUTSIDE RECORDS SUMMARY | ~2019-05-17 | XMS | Encounter Summary ---
Demographics + + + | Address | [address] | | | [place] [address] | + + + | Home Phone | | + + + | Preferred Language | Unknown | + + + | Marital Status | | + + + | Sabianist Affiliation | 1077 | + + + | Race | Unknown | + + + | Ethnic Group | Unknown | + + + Author + + + | Author | [facility] | | | and Azana | + + + | Organization | [facility] | | | and Azana [...] [place], [place] | | | | | [address] | | + + + + + | Helena Doherty | ECON | [place], | | | | | [place] [address] | | + + + + + Care Team Providers + +------+ + | Care Professional Bass Fisherman Name | Role | Phone | + [...] | | | | | foraminal | [place], | [address] | | | | | stenosis | [place] [address] | Phone: | | | | | Scoliosis of | Phone: | [phone] | | | | | lumbar | [phone] | Fax: | | | | | spine, | Fax: | [phone] | | | | | unspecified | [phone] | | | | | | scoliosis [...] + + | 03/14/ | Office | [facility] | Onesimo Oliveira | Lumbar radiculopathy | | 2017 | Visit | NEUROSURGERY [address] | [address] | (Primary Dx); S/P | | | | [address] | [address] | lumbar fusion; | | | | [place], [place] | [place], [place] | Lumbar foraminal | | | | [address] | [address] | stenosis; Scoliosis | | | | [phone] | | of lumbar spine, | | [...] in this encounter Patient Instructions Patient Instructions Onesimo Oliveira PA-C - 03/14/2017 3:00 PM PDTAt [...] from the original. Onesimo Oliveira PA-C [address] [facility], [address] [place], [place] [id number] FAX: NEUROSURGERY FOLLOW-UP CHIEF COMPLAINT: Chief Complaint [...] seen in our office in 2 months terminal superintendent pain medication does not appear to be [...] [place] | | | | | | [place] [address] | | | | | | [phone] | | | | | | | | | | | | Foam MolderNaomi | | +--------+ + + + + [...]
--- OUTSIDE RECORDS SUMMARY | ~2019-05-17 | XMS | Encounter Summary ---
Demographics + + + | Address | [address] | | | [place] [address] | + + + | Home Phone [...] [facility] | | | and Azana | + + + | Organization | [facility] | | | and [...] [place], [place] | | | | | [address] | | + + + + + | Helena Doherty | ECON | [place], | | | | | [place] [address] | | + + + + + Care Team Providers + +------+ + | Care Pipe Covering Molder Name | Role | Phone | [...] + + | 10/16/ | Telephone | [facility] | Wendy Mitchell | Other (to discuss | | 2012 | | PHYSIATRY [address] | [place] [address] | post injection form) | | | | [place], | [address] | | | | | [place] [address] | [place] [address] | | | | | [phone] | [phone] | | | | | | | [...] | | | | | | [place] [address] | | | | | | [phone] | | | | | | | | | | | | Drama ProfessorNaomi | | +--------+ + + + + documented as of this encounter Visit Diagnoses Not on filedocumented in this encounter"
--- OUTSIDE RECORDS SUMMARY | ~2019-05-17 | XMS | Encounter Summary ---
Demographics + + + | Address | [address] | | | [place] [address] | + + + | Home Phone [...] | Author | [facility] | | | and Azana | + + + | Organization | [facility] [...] [place], [place] | | | | | [address] | | + + + + + | Helena Doherty | ECON | [place], | | | | | [place] [address] | | + + + + + Care Team Providers + +------+ + | Care Shoe Worker Name | Role | Phone | [...] | | | bursitis, | Ave | [address] Phone: | | | | | left hip | [place], | [phone] | | | | | M70.61 | [place] | Fax: | | | | | (ICD-10-CM) | [address] | [phone] | | | | | - | Phone: | | | | | | Trochanteric | [phone] | | | | | | bursitis, | Fax: | | | | | | right hip | [phone] | | | | | | M79.7 [...] + + | 09/18/ | Office | [facility] | Aiyana Fish, | Fibromyalgia | | 2019 | Visit | [facility] | PT [address] | (Primary Dx); Neck | | | | [address] | [place] | pain; Trochanteric | | | | [place] | [address] | bursitis of both | | | | [address] | | hips | | | | [phone] | | | +--------+---------+ + + + [...] encounter Progress Notes Aiyana Fish, PT - 09/18/2018 12:45 PM PDTFormatting of this note might be different fro m the original. [facility] [address] [place] [address] Physical Therapy Daily Treatment Note Date: 09/18/2018 Patient Information Patient Name: Ashly Santiago Date of : 1940 Age: 78 y.o. Encounter Diagnoses Code Name Primary? M79.7 Fibromyalgia Yes M54.2 Neck pain M70.61, M70.62 Trochanteric bursitis of both hips Date of Onset: 04/10/2018 Referring Provider: Sophia Bush PA-C Rehab Precautions Office Visit from 04/17/2018 in [facility] PT OP Rehab Precautions Precautions None Rehab Learning Style Office Visit from 04/17/2018 in [facility] PT OP Office Visit fro m 10/19/2016 in [facility] PT OP Learning Style Patient's Optimum Learning Style listening, reading, observation, performance of task lis tening, reading, observation, performance of task Start Time: 1240 Stop time: 1335 Duration: 55 minutes Timed Treatment Codes: 55 minutes # of PT Visits to Date: 17 Subjective: Pt reports that she has had some stomach pain this week and will be seeing Dr. Hilliard for th is today. She also reports some severe pain across the mid thoracic spine which is gone now . She has been taken off Mobic until she sees her doctor again due to lab report Pain Assessment: Pain Rating Pre Assessment: 4 Pain Rating Post Assessment: 3 Location: neck and mid and lower thoracic spine. Objective: Manual Treatment: Myofascial release and positional release therapy: Lower thoracic spine, mid thoracic spine and posterior ribs, right hip and leg, and cervical spine. Parietal rel ease Assessment: Good response to treatment. Fascial release resulted in improved mobility in the lower tho racic spine and ribs and lower pain level reported to be 3/10 following the session. Plan: Continue with manual therapy and development of home program Electronically signed by: Aiyana Fish, PT, 09/18/2018 14:21 Patient Name: Ashly Real Jack/: 1940/ documented [...] | | | | | | [place] [address] | | | | | | [phone] | | | | | | | | | | | | Machine InspectorNaomi | | +--------+ + + + [...]
--- OUTSIDE RECORDS SUMMARY | ~2019-05-17 | XMS | Encounter Summary ---
Demographics + + + | Address | [address] | | | [place] [address] | + + + | Home Phone [...] | Author | [facility] | | | and Azana | + + + | Organization | [facility] | [...] [place], [place] | | | | | [address] | | + + + + + | Helena Doherty | ECON | [place], | | | | | [place] [address] | | + + + + + Care Team Providers + +------+ + | Care Vacuum Spindle Sander Name | Role | Phone | [...] | | Degenerative | [address] | [place], [place] | | | | | disc | [place] | [address] Phone: | | | | | disease, | [address] | [phone] | | | | | lumbar | Phone: | Fax: | | | | | Lumbar | [phone] | [phone] | | | | | foraminal | Fax: | | | | | | stenosis | [phone] | | | | | | Fibromyalgia [...] Description | +--------+---------+ + + + | 01/10/ | Office | [facility] | Fay, | Sacroiliitis (HCC) | | 2017 | Visit | [facility] | [address] | (Primary Dx); | | | | OP [address] | [facility], | Fibromyalgia | | | | [place] | [place] [address] | | | | | [address] | [phone] | | | | | [phone] | | | | | | | Aiyana Fish S, PT | | | | | | [address] | | | | | | [place] | | | | | | [phone] | | | | | | | [...] documented as of this encounter Progress Notes AbeAiyana S, PT - 01/10/2017 1:00 PM PDTFormatting of this note might be different fro m the original. [facility] PT OP [address] [place] [address] Physical Therapy Daily Treatment Note Date: 01/10/2017 Patient Information Patient Name: Ashly Santiago Date of : 1940 Age: 77 y.o. Encounter Diagnoses Code Name Primary? M46.1 Sacroiliitis (HCC) Yes M79.7 Fibromyalgia Date of Onset: 06/08/2016 Referring Provider: Anna Aponte PA-C Rehab Precautions Flowsheet Row Office Visit from 10/19/2016 in [facility] PT OP Rehab Precautions Precautions None Rehab Learning Style Flowsheet Row Office Visit from 10/19/2016 in [facility] PT OP Learning Style Patient's Optimum Learning Style listening, reading, observation, performance of task Start Time: 1308 Stop time: 1407 Duration: 59 minutes Timed Treatment Codes: 55 minutes # of PT Visits to Date: 8 Subjective: Pt reports that she has been able to be out in her yard and do some light yard work without increasing her back pain. Pain Assessment: Pain Rating Pre Assessment: 3 Pain Rating Post Assessment: 2 Location: right neck and shoulder Objective: Education: Persistent pain education in prep for her back surgery post op pain experience.. Manual Treatment: Myofascial release and positional release therapy to multiple areas: Dur al tube mobilization, right hip and leg, sacrum, upper and mid thoracic spine and cervical s pine with gentle traction. Assessment: Good response to treatment. Fascial release resulted in improved mobility in the right sca pula thoracic region. and lower pain level reported to be 2/10 following the session. Plan: Continue with manual therapy and development of home program. Add 4-7-8 breathing to her h ome program next visit. PN due next visit. Electronically signed by: Aiyana Fish, PT, 01/10/2017 14:20 Patient Name: Ashly Santiago/: 1940/ documented in this en counter Plan of Treatment +--------+ + + + + | Date | Type | Specialty | Care Team | Description | +--------+ + + + + | 05/19/ | Hospital | Radiology | Dennys Pineda PA-C | | | 2019 | Encounter | | [address] | | | | | | [address] [place] | | | | | | [place] [address] | | | | | | [phone] | | | | | | | | | | | | Headend TechnicianNaomi | | +--------+ + + + + [...]
--- OUTSIDE RECORDS SUMMARY | ~2019-05-17 | XMS | Encounter Summary ---
Demographics + + + | Address | [address] [facility] | | | [place] [address] | + + + | Home Phone | | + + + | Preferred Language | Unknown | + + + | Marital Status | | + + + | Judaism Affiliation | 1077 | + + + | Race | Unknown | + + + | Ethnic Group | Unknown | + + + Author + + + | Author | [facility] | | | and Azana | + + + | Organization | [facility] | | | and [...] [place], [place] | | | | | [address] | | + + + + + | Helena Doherty | ECON | [place], | | | | | [place] [address] | | + + + + + Care Team Providers + +------+ + | Care Loose Hand Packer Name | Role | Phone | + [...] | | Degenerative | [address] | [facility] [place] | | | | | disc | [place] | [address] Phone: | | | | | disease, | [address] | [phone] | | | | | lumbar | Phone: | Fax: | | | | | Lumbar | [phone] | [phone] | | | | | foraminal | Fax: | | | | | | stenosis | [phone] | | | | | | Fibromyalgia [...] + + | 10/19/ | Office | [facility] | Fay, | Acute left-sided low | | 2017 | Visit | MED CTR TH[facility]Y PT | FABIAN Castillo [address] | back pain with | | | | OP [address] | [facility], | sciatica, sciatica | | | | [place] | [place] [address] | laterality | | | | [address] | [phone] | unspecified (Primary | | | | [phone] | | Dx); Fibromyalgia; | | | | | Aiyana Fish S, PT | Sacroiliitis (HCC) | | | | | [address] | | | | | | [place] | | | | | | [address] | | | | | | | [...] impaired, limited or restricted Treatment Plan/Interventions PT [id number] - Therapeutic [id number] - Therapeutic Zgyglmdfqm01498 - Manual Thera [id number] - Self Care/Home Management Electronically signed by: Aiyana Fish, PT, 10/19/2016 15:05 Patient Name: Ashly Zavaleta/: 1940/ Aiyana Roberts PT - 10/19/2016 1:13 PM PDT [facility] PT OP [address] [place] [address] Physical Therapy Initial Assessment Date: 10/19/2016 Patient [...] without limitations due to pain. 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 Db Berrios Perineal skin bridge 02/2009 Electrocardiogram 05/19/2009 Dr. Boss Egd and colonoscopy 07/06/[address] [facility] [address] Jc Electrocardiogram 08/12/2009 Dr. Radha Stafford; [facility] Endoscopy 07/07/2011 [facility]; Dr. Marquez Finger trigger release Right [...] Rehab Precautions Office Visit from 10/19/2016 in [facility] PT OP Rehab Precautions Precautions [...] and stand normally. Daughter is visiting from [facility] in December and she would like to be able to go to [place] to shop and walk with her MRI [...] 10/19/2016 Certification To: 01/18/2017 Treatment Plan/Interventions PT [id number] - Therapeutic Yytkrdys44165 - Therapeutic Dttifnveyv17375 - Manual Thera [id number] - Self Care/Home Management Patient and/or family [...] | | | | | | [place] [address] | | | | | | [phone] | | | | | | | | | | | | Department Store General ManagerNaomi | | +--------+ + + + [...]
--- OUTSIDE RECORDS SUMMARY | ~2019-05-17 | XMS | Encounter Summary ---
Demographics + + + | Address | [address] [facility] | | | [place] [address] | + + + | Home Phone [...] | Author | [facility] | | | and Azana | + + + | Organization | [facility] | | [...] [place], [place] | | | | | [address] | | + + + + + | Helena Doherty | ECON | [place], | | | | | [place] [address] | | + + + + + Care Team Providers + +------+ + | Care Receiving Room Clerk Name | Role | Phone | + +------+ + | Nathan Luevano DO | PCP | | + +------+ + Reason for Visit + + + | Reason | Comments | + + + | Paperwork | | + + + Encounter Details +--------+ + + + + | Date | Type | Department | Care Team | Description | +--------+ + + + + | 05/06/ | Telephone | [facility] | Dennys Pineda PA-C | Paperwork | | 2019 | | PHYSIATRY [address] | [address] | | | | | [place], | [address] [place] | | | | | [place] [address] | [place] [address] | | | | | [phone] | [phone] | | | | | | | [...] | | | | | [place] [address] | | | | | | [phone] | | | | | | | | | | | | Food Trades AssistantsNaomi | | +--------+ + + + + documented as of this encounter Visit Diagnoses Not on filedocumented in this encounter"
--- OUTSIDE RECORDS SUMMARY | ~2019-05-17 | XMS | Encounter Summary ---
Demographics + + + | Address | [address] [facility] | | | [place] [address] | + + + | Home Phone | | + + + | Preferred Language | Unknown | + + + | Marital Status | | + + + | Yazidi Affiliation | 1077 | + + + | Race | Unknown | + + + | Ethnic Group | Unknown | + + + Author + + + | Author | [facility] | | | and Azana | + + + | Organization | [facility] | | [...] [place], [place] | | | | | [address] | | + + + + + | Helena Doherty | ECON | [place], | | | | | [place] [address] | | + + + + + Care Team Providers + +------+ + | Care Records Manager Name | Role | Phone | + +------+ + | Nathan Luevano DO | PCP | | + +------+ + Encounter Details +--------+ + + + + | Date | Type | Department | Care Team | Description | +--------+ + + + + | 05/10/ | Episode | [facility] [place] | Camryn Martinez | | | 2016 | Changes | GASTROENTEROLOGY | ILIR Turner | | | | | [address] [place] | | | | | | [address] [place] | | | | | | [address] | | | | | | [phone] | | | +--------+ + + + [...] | | | | | [place] [address] | | | | | | [phone] | | | | | | | | | | | | Digital Content Coordinator, [place]s | | +--------+ + + + + documented as of this encounter Visit Diagnoses Not on filedocumented in this encounter"
--- OUTSIDE RECORDS SUMMARY | ~2019-05-17 | XMS | Encounter Summary ---
Demographics + + + | Address | [address] [facility] | | | [place] [address] | + + + | Home Phone | | + + + | Preferred Language | Unknown | + + + | Marital Status | | + + + | Anabaptism Affiliation | Unknown | + + + | Race | White | + + + | Ethnic Group | Not or | + + + Author + + + | Author | [facility] | + + + | Organization | [facility] | + + + | Address | Unknown | + + + | Phone | Unavailable | + + + Support + + +---------+ + | Name | Relationship | Address | Phone | + + +---------+ + | Alon Santiago | ECON | Unknown | | + + +---------+ + Care Team Providers + +------+ + | Care Restaurant Service Manager Name | Role | Phone | [...] | | | Amara Chatman Mailcode: | [place], [place] | | | | | [address] Physician's | [address] | | | | | [address], 4th Floor | [phone] | | | | | [place], [place] | | | | | | [address] | | | | | | [phone] | | | +--------+ + + + [...]
--- OUTSIDE RECORDS SUMMARY | ~2019-05-17 | XMS | Encounter Summary ---
Demographics + + + | Address | [address] [facility] | | | [place] [address] | + + + | Home Phone [...] | Author | [facility] | | | and Azana | + + + | Organization | [facility] | | | and Azana [...] [place], [place] | | | | | [address] | | + + + + + | Helena Doherty | ECON | [place], | | | | | [place] [address] | | + + + + + Care Team Providers + +------+ + | Care Typewriter Operator Automatic Name | Role | Phone | + [...] | | | | | | | [place] | | | | | | | COLONOSCOPY | | | | | | | FLX DX | | | | | | | W/COLLJ SPEC | | | | | | | WHEN PFRMD | | | | | | | [place] | | | | | | | COLONOSCOPY | | | | | | | W/BIOPSY | | | | | | | SINGLE/MULTI | | | | | | | PLE [place] | | | | | | | COLSC FLX | | | | | | | W/RMVL OF | | | | | | | TUMOR POLYP | | | | | | | LESION SNARE | | | | | | | TQ [place] | | | | | | | [...] + + | 05/23/ | Hospital | [facility] | Joshua Hilliard MD | Change in bowel | | 2017 | Encounter | MED CTR MP INTRA OP | [address], [place] | habits (Primary Dx) | | | | [address] | [address] [place] | | | | | [place] | [address] | | | | | [address] | | | | | | [phone] | | | +--------+ + + + [...] | | | | | | [place] [address] | | | | | | [phone] | | | | | | | | | | | | Radio Tower Technician, [facility] | | +--------+ + + [...] 05/23/2017 | [facility] | | 12:52 PMMRN: [id number] #: [id number] of : | | | 1940Admit Type: AmbulatoryAge: 77Room: [facility] 01Gender: FemaleNote | | | Status: FinalizedAttending MD: Joshua Hilliard , MDProcedure: | | | ColonoscopyIndications: Clinically significant diarrhea | | | of unexplained origin, Change in bowel | | | habitsProviders: Joshua Hilliard MD, Mary Abraham | | | ILIR Wahl, Wendy Szymanski, | | | Spinning Doffer, Phu Manning MD (Anesthesia | | | [...] | | | the anesthesiologist and the blood bank technician in the endoscopy suite. | | [...] Scope In: 1:57:41 PMScope Out: 2:25:20 PM [facility]. | | | [facility], [address] [place] [address] | | | [phone] | | | - No aspirin, ibuprofen, [...] |Scope Out: 2:25:20 PM | | | [facility]. [facility], [address] [place] [address] | | | [address] | | + + -+ + +---------+ [...] Negative for high grade dysplasia and malignancy. [facility]:cox branson:C2NR | | | GROSS DESCRIPTION: Received in [...] the requisition are five | | | oqxofs-yvqn-tmn tissue fragments measuring from 0.25-0.4 cm, | [...] preparation were | | | performed by [facility], [address], [facility] | | | [place] [address] (Clean Energy Policy Analyst: Albaro Eric M.D. CLIA#: | | | [id number]). Professional interpretation was performed by [facility] | | | [employer], [address], [place] [address] | | | (Clean Energy Policy Analyst: Albaro Eric M.D.; CLIA#: [id number]). | | | Diagnostician: Alf Lobo MD [...]
--- OUTSIDE RECORDS SUMMARY | ~2019-05-17 | XMS | Encounter Summary ---
Demographics + + + | Address | [address] [facility] | | | [place] [address] | + + + | Home Phone | | + + + | Preferred Language | Unknown | + + + | Marital Status | | + + + | Latter-Day Affiliation | Unknown | + + + | Race | White | + + + | Ethnic Group | Not or | + + + Author + + + | Author | [facility] | + + + | Organization | [facility] | + + + | Address | Unknown | + + + | Phone | Unavailable | + + + Support + + +---------+ + | Name | Relationship | Address | Phone | + + +---------+ + | Alon Santiago | ECON | Unknown | | + + +---------+ + Care Team Providers + +------+ + | Care Clinical Trials Specialist Name | Role | Phone | + +------+ + | Thee Boss MD | PCP | | + +------+ + Encounter Details +--------+ + + + + | Date | Type | Department | Care Team | Description | +--------+ + + + + | 08/15/ | MyChart | Rheumatology at | Tavia Zuniga | RE: Conrad/Ashly | | 2013 | Encounter | Physicians KALA Fung [address] | | | | [address] | [address] | | | | | Amara Chatman Mailcode: | [place], [place] | | | | | [address] Physician's | [address] | | | | | [address], 4th Floor | [phone] | | | | | [place], [place] | | | | | | [address] | | | | | | [phone] | | | +--------+ + + + [...]
--- OUTSIDE RECORDS SUMMARY | ~2019-05-17 | XMS | Encounter Summary ---
Demographics + + + | Address | [address] [facility] | | | [place] [address] | + + + | Home Phone | | + + + | Preferred Language | Unknown | + + + | Marital Status | | + + + | Orthodox Affiliation | Unknown | + + + | Race | White | + + + | Ethnic Group | Not or | + + + Author + + + | Author | [facility] | + + + | Organization | [facility] | + + + | Address | Unknown | + + + | Phone | Unavailable | + + + Support + + +---------+ + | Name | Relationship | Address | Phone | + + +---------+ + | Alon Santiago | ECON | Unknown | | + + +---------+ + Care Team Providers + +------+ + | Care Installation Coordinator Name | Role | Phone | + +------+ + | Thee Boss MD | PCP | | + +------+ + Encounter Details +--------+ + + + + | Date | Type | Department | Care Team | Description | +--------+ + + + + | 08/03/ | MyChart | Rheumatology at | Tavia Zuniga | RE: Papo | | 2013 | Encounter | Physicians KALA Fung [address] | | | | | [address] | [address] | | | | | Amara Chatman Mailcode: | [place], [place] | | | | | [address] Physician's | [address] | | | | | [address]ancy, [facility] Floor | [phone] | | | | | [place], [place] | | | | | | [address] | | | | | | [phone] | | | +--------+ + + + [...]
--- OUTSIDE RECORDS SUMMARY | ~2019-05-17 | XMS | Encounter Summary ---
Demographics + + + | Address | [address] [facility] | | | [place] [address] | + + + | Home Phone [...] + | Author | [facility] | | | and Azana | + + + | Organization | [facility] | | | and [...] [place], [place] | | | | | [address] | | + + + + + | Helena Doherty | ECON | [place], | | | | | [place] [address] | | + + + + + Care Team Providers + +------+ + | Care Hand Twister Name | Role | Phone | + +------+ + | Nathan Luevano DO | PCP | | + +------+ + Encounter Details +--------+ + + + + | Date | Type | Department | Care Team | Description | +--------+ + + + + | 08/08/ | Episode | [facility] [place] | Sri Santiago, | | | 2017 | Changes | NEUROSURGERY [address] | Cert [place] | | | | | [address] | | | | | | [place] | | | | | | [address] | | | | | | [phone] | | | +--------+ + + + [...] | | | | | [place] [address] | | | | | | [phone] | | | | | | | | | | | | Assembly AdjusterNaomi | | +--------+ + + + + documented as of this encounter Visit Diagnoses Not on filedocumented in this encounter"
--- OUTSIDE RECORDS SUMMARY | ~2019-05-17 | XMS | Encounter Summary ---
Demographics + + + | Address | [address] [facility] | | | [place] [address] | + + + | Home Phone | | + + + | Preferred Language | Unknown | + + + | Marital Status | | + + + | Christian Affiliation | 1077 | + + + | Race | Unknown | + + + | Ethnic Group | Unknown | + + + Author + + + | Author | [facility] | | | and Azana | + + + | Organization | [facility] | | | and Azana [...] [place], [place] | | | | | [address] | | + + + + + | Helena Doherty | ECON | [place], | | | | | [place] [address] | | + + + + + Care Team Providers + +------+ + | Care Copra Processor Name | Role | Phone | + [...] | | | bursitis, | Ave | [address] Phone: | | | | | left hip | [place], | [phone] | | | | | M70.61 | [place] | Fax: | | | | | (ICD-10-CM) | [address] | [phone] | | | | | - | Phone: | | | | | | Trochanteric | [phone] | | | | | | bursitis, | Fax: | | | | | | right hip | [phone] | | | | | | M79.7 [...] Description | +--------+---------+ + + + | 09/11/ | Office | [facility] | Aiyana Fish, | Fibromyalgia | | 2019 | Visit | [facility] | PT [address] | (Primary Dx); Neck | | | | [address] | [place] | pain; Trochanteric | | | | [place] | [address] | bursitis of both | | | | [address] | | hips | | | | [phone] | | | +--------+---------+ + + + [...] encounter Progress Notes Aiyana Fish, PT - 09/11/2018 12:00 PM PDTFormatting of this note might be different fro m the original. [facility] [address] [place] [address] Physical Therapy Daily Treatment Note Date: 09/11/2018 Patient Information Patient Name: Ashly Santiago Date of : 1940 Age: 78 y.o. Encounter Diagnoses Code Name Primary? M79.7 Fibromyalgia Yes M54.2 Neck pain M70.61, M70.62 Trochanteric bursitis of both hips Date of Onset: 04/10/2018 Referring Provider: Sophai Bush PA-C Rehab Precautions Office Visit from [...] of task Start Time: 1203 Stop time: 1248 Duration: 45 minutes Timed Treatment Codes: 45 minutes # of PT Visits to Date: 16 Subjective: Pt reports that she has had more neck pain this week possibly from doing her taxes and also her daughter lives in [facility] and so she was worried about her given the recent events that just happened there. Pain Assessment: Pain Rating Pre Assessment: 3 Location: neck Objective: Manual Treatment: Myofascial release and positional release therapy: Dural tube mobilizati on, right hip and leg, sacrum, left hip, upper and mid thoracic spine and cervical spine Assessment: ROM remains good in spite of increased neck pain this week. Symptoms overall are stable Plan: Continue with manual therapy and development of home program Electronically signed by: Aiyana Fish PT, 09/11/2018 14:35 Patient Name: Ashly Santiago/: 1940/ documented in [...] | | | | | [address] [facility] | | | | | | [place] [address] | | | | | | [phone] | | | | | | | | | | | | Hot MolderNaomi | | +--------+ + + + [...]
--- OUTSIDE RECORDS SUMMARY | ~2019-05-17 | XMS | Encounter Summary ---
Demographics + + + | Address | [address] [facility] | | | [place] [address] | + + + | Home Phone [...] | [facility] | | | and Azana | + + + | Organization | [facility] | | | and [...] [place], [place] | | | | | [address] | | + + + + + | Helena Doherty | ECON | [place], | | | | | [place] [address] | | + + + + + Care Team Providers + +------+ + | Care Cassandra Architect Name | Role | Phone | + [...] | Trochanteric | [address] | [place] | | | | | bursitis, | Ave | [address] Phone: | | | | | left hip | [place], | [phone] | | | | | M70.61 | [place] | Fax: | | | | | (ICD-10-CM) | [address] | [phone] | | | | | - | Phone: | | | | | | Trochanteric | [phone] | | | | | | bursitis, | Fax: | | | | | | right hip | [phone] | | | | | | M79.7 [...] + + | 07/01/ | Office | [facility] | Schmidtgall, | Trochanteric | | 2019 | Visit | [facility] CTR THERAPY PT | Sophia Kingsley PA-C | bursitis of both | | | | OP [address] | [address] | hips (Primary Dx); | | | | [place] | [place], [place] | Neck pain; | | | | [address] | [address] | Fibromyalgia | | | | [phone] | [phone] | | | | | | | | | | | | Aiyana Fish S, PT | | | | | | [address] | | | | | | [place] | | | | | | [address] | | | | | | | [...] might be different fro m the original. [facility] CTR THERAPY PT OP [address] [place] [address] Physical Therapy Progress Assessment Date: 07/01/2018 Patient Information Patient Name: Ashly Santiago Date of : 1940 Age: 78 y.o. Encounter Diagnoses Code Name Primary? M70.61, M70.62 Trochanteric bursitis of both hips Yes M54.2 Neck pain M79.7 Fibromyalgia Date of Onset: 04/10/2018 Referring Provider: Sophia Bush PA-C Rehab Precautions Office Visit from 04/17/2018 in [facility] CTR THERAPY PT OP Rehab Precautions Precautions None Rehab Learning Style Office Visit from 04/17/2018 in [facility] CTR THERAPY PT OP Office Visit fro m 10/19/2016 in [facility] CTR THERAPY PT OP Learning Style [...] (From Chronic Pain tab; printable questionnaires in Korean) Interpretation of Total Score: The lower the [...] From: 07/01/2018 Certification To: 09/29/2018 Treatment Plan/Interventions 459[address] - Therapeutic Rfyktgbl60015 - Therapeutic Dotvcatbvb53322 - Manual [id number] - Liza f Care/Home Management Patient and/or [...] [place] | | | | | | [place] [address] | | | | | | [phone] | | | | | | | | | | | | Shoe Repairer Helper, [facility] | | +--------+ + + + [...]
--- OUTSIDE RECORDS SUMMARY | ~2019-05-17 | XMS | Encounter Summary ---
Demographics + + + | Address | [address] [facility] | | | [place] [address] | + + + | Home Phone | | + + + | Preferred Language | Unknown | + + + | Marital Status | | + + + | Adventism Affiliation | 1077 | + + + | Race | Unknown | + + + | Ethnic Group | Unknown | + + + Author + + + | Author | [facility] | | | and Azana | + + + | Organization | [facility] | | | and Azana | [...] [place], [place] | | | | | [address] | | + + + + + | Helena Doherty | ECON | [place], | | | | | [place] [address] | | + + + + + Care Team Providers + +------+ + | Care Audio Visual Equipment Rental Clerk Name | Role | Phone | [...] + + | 05/28/ | Telephone | [facility] | Joshua Hilliard MD | Results, Pathology | | 2017 | | GASTROENTEROLOGY | [address], [place] | (Colonoscopy) | | | | [address] [place] | [address] [place] | | | | | [address] [place], [place] | [address] | | | | | [address] | | | | | | [phone] | | | +--------+ + + + [...] | | | | | | [place] [address] | | | | | | [phone] | | | | | | | | | | | | Pipe SetterNaomi | | +--------+ + + + + documented as of this encounter Visit Diagnoses Not on filedocumented in this encounter"
--- OUTSIDE RECORDS SUMMARY | ~2019-05-17 | XMS | Encounter Summary ---
Demographics + + + | Address | [address] [facility] | | | [place] [address] | + + + | Home Phone | | + + + | Preferred Language | Unknown | + + + | Marital Status | | + + + | Tenriism Affiliation | Unknown | + + + | Race | White | + + + | Ethnic Group | Not or | + + + Author + + + | Author | [facility] | + + + | Organization | [facility] | + + + | Address | Unknown | + + + | Phone | Unavailable | + + + Support + + +---------+ + | Name | Relationship | Address | Phone | + + +---------+ + | Alon Santiago | ECON | Unknown | | + + +---------+ + Care Team Providers + +------+ + | Care Structures Mechanic Name | Role | Phone | + +------+ + | Thee Boss MD | PCP | | + +------+ + Encounter Details +--------+ + + + + | Date | Type | Department | Care Team | Description | +--------+ + + + + | 10/28/ | MyChart | Rheumatology at | Rosas Lucia MD | RE: Appointment & | | 2014 | Encounter | Physicians [place] | [address] [facility] | [place] | | | | [address] | [address] [place] | | | | | Am[place] Chatman Mailcode: | [place] [address] | | | | | [address] Physician's | [phone] | | | | | [address], [address] Floor | | | | | | [place] | | | | | | [address] | | | | | | [phone] | | | +--------+ + + + [...]
--- OUTSIDE RECORDS SUMMARY | ~2019-05-17 | XMS | Encounter Summary ---
Demographics + + + | Address | [address] | | | [place] [address] | + + + | Home Phone | | + + + | Preferred Language | Unknown | + + + | Marital Status | | + + + | Alevism Affiliation | Unknown | + + + | Race | White | + + + | Ethnic Group | Not or | + + + Author + + + | Author | [facility] | + + + | Organization | [facility] | + + + | Address | Unknown | + + + | Phone | Unavailable | + + + Support + + +---------+ + | Name | Relationship | Address | Phone | + + +---------+ + | Alon Santiago | ECON | Unknown | | + + +---------+ + Care Team Providers + +------+ + | Care Yard Operator Name | Role | Phone | + +------+ + | Thee Boss MD | PCP | | + +------+ + Encounter Details +--------+ + + + + | Date | Type | Department | Care Team | Description | +--------+ + + + + | 10/10/ | MyChart | Rheumatology at | Rosas Lucia MD | RE:chart notes | | 2014 | Encounter | [facility] | [address] [facility] | | | | | [address] | [address] [place], | | | | | Amara Chatman Mailcode: | [place] [address] | | | | | [address] Physician's | [phone] | | | | | Francy, [address] Floor | | | | | | [place], [place] | | | | | | [address] | | | | | | [phone] | | | +--------+ + + + [...]
--- OUTSIDE RECORDS SUMMARY | ~2019-05-17 | XMS | Encounter Summary ---
Demographics + + + | Address | [address] | | | [place] [address] | + + + | Home Phone [...] + + | Author | [facility] | + + + | Organization | [facility] | + + + | Address | Unknown | + + + | Phone | Unavailable | + + + Support + + +---------+ + | Name | Relationship | Address | Phone | + + +---------+ + | Alon Santiago | ECON | Unknown | | + + +---------+ + Care Team Providers + +------+ + | Care Respooler Name | Role | Phone | + [...] | arthritis(71 | Sophia K, | [address] [facility] | | | | | 4.0) ([facility]) | [place] [address] | [address] | | | | | Myalgia and | [address] | [address] [place], | | | | | myositis, | [place], | [place] | | | | | unspecified | [place] [address] | [address] | | | | | Procedures | Phone: | Phone: | | | | | [place] | [phone] | [phone] | | | | | OFFICE/OUTPT | Fax: | Fax: | | | | | | [phone] | [phone] | | | | | VISIT,EST,LE | | | | | | | PASQUALE III | | | +--------+--------+ + + + + Encounter Details +--------+---------+ + + + | Date | Type | Department | Care Team | Description | +--------+---------+ + + + | 06/14/ | Office | Rheumatology at | oRsas Lucia MD | Rheumatoid arthritis | | 2015 | Visit | [facility] | [address] | ([facility]) (Primary Dx) | | | | [address] [facility] | [address] [place], | | | | | Celina Chatman Mailcode: | [place] [address] | | | | | [address]09 Physician's | [phone] | | | | | Francy, [facility] Floor | | | | | | [place], [place] | | | | | | [address] | | | | | | [phone] | | | +--------+---------+ + + + [...] Tavia Linda, KALA [address] [place] [address] fax: [phone] CC: joint pain HPI: Ms Santiago is [...] labs but Dr Shelton, who was h Personnel Research Scientist, was not sure if the symptoms were [...] of systems. I s pent 20 minutes [id number] with the patient with over 50% in [...] [facility] | [address] | [place] [address] | | | SAMIR LEVY | [address] [...] [facility] | [address] | [place] [address] | | | SERVICES, CORE | PARK [...] | | | LABORATORY | | | FILIPINO | | | SERVICES, | | | [...] | + + + + + | [facility] | [address] [facility] | [place] [address] | | | SERVICES, [facility] | [address] | | | + [...] | | + +---------+ + + | [facility] DEPARTMENT OF | | | | | RADIOLOGY | | | | + +---------+ + + documented in this encounter Visit Diagnoses + + | Diagnosis | + + | Rheumatoid arthritis (HCC) - Primary | + + documented in this encounter"
--- OUTSIDE RECORDS SUMMARY | ~2019-05-17 | XMS | Encounter Summary ---
Demographics + + + | Address | [address] | | | [place] [address] | + + + | Home Phone | | + + + | Preferred Language | Unknown | + + + | Marital Status | | + + + | Zoroastrianism Affiliation | Unknown | + + + | Race | White | + + + | Ethnic Group | Not or | + + + Author + + + | Author | [facility] | + + + | Organization | [facility] | + + + | Address | Unknown | + + + | Phone | Unavailable | + + + Support + + +---------+ + | Name | Relationship | Address | Phone | + + +---------+ + | Alon Santiago | ECON | Unknown | | + + +---------+ + Care Team Providers + +------+ + | Care Back Up Scan Coordinator Name | Role | Phone | + +------+ + | Thee Boss MD | PCP | | + +------+ + Reason for Visit + + + | Reason | Comments | + + + | Follow-up visit | | + + + Encounter Details +--------+---------+ + + + | Date | Type | Department | Care Team | Description | +--------+---------+ + + + | 09/02/ | Office | Rheumatology at | Rosas Lucia MD | Fibromyalgia | | 2013 | Visit | [facility] | [address] | (Primary Dx) | | | | [address] | [address] [place], | | | | | [place] Mailcode: | [place] [address] | | | | | [address] Physician's | [phone] | | | | | Francy, [facility] Floor | | | | | | [place], [place] | | | | | | [address] | | | | | | [phone] | | | +--------+---------+ + + + [...] + + + | Blood Pressure | 138/74 | 09/02/2013 11:44 AM | | | | | PDT [...] + + + + | Weight | 89.8 kg (198 lb) | 09/02/2013 11:44 AM | | | | | PDT | | + + + + + | Height | - | - | | + + + + + | Body Mass Index | 32.95 | 04/07/2013 2:16 PM | | | | | PDT | | + + + + + documented in this encounter Patient Instructions Patient Instructions Rosas Lucia MD - 09/02/2013 12:05 PM PDTPlease let me know how you a re doing in 6 weeks. Please get blood tests done today. documented in this encounter Progress Notes Rsoas Lucia MD - 09/02/2013 11:42 AM PDTFormatting of this note might be different from t he original. RHEUMATOLOGY NEW PATIENT CONSULT This consultation was requested by: Tavia Linda, KALA [address] [place] [address] fax: [phone] CC: Chief Complaint Patient presents with Follow-up visit joint pain HPI: Ms Santiago is a 73 y.o. female, here for consultation from regarding diagnosis, and pos sible change in therapy for joint pain. She has had joint pain for the past 10-15 years ago and has worsened recently in the past couple of years. Her PCP diagnosed her with RA on the basis of labs but Dr Shelton, who was her Graduate Intern, was not sure if the symptoms were from RA. She has been taken methotrexate for the past 12 months and Plaquenil for the past 10 months or so. She is not sure if that has helped and feels that the only way to be sure w ill be to discontinue it. Her neck is hurting more and the knees are also giving her more trouble. The neck is stiff all the time. The pain is constant all the time. She does not feel a spasm around the neck. It hurts to move it in all directions. There are no radicular pain and the pain is more like a dull ache. There can be a sharp pain on the right side if she bends it. There is a tingly feeling at the base of the skull. The knee has a torn meniscus. The pain is worse when she goes up and down. Rest helps. It is not stiff all the time. She has pain on the side of the right hip. No history of malar rash, oral or [...] headaches. She has a brain fog. She used prednisone in the past and [...] tablet by mouth two times nadine y. Lysine 500 mg OR CAPS 1 tablet [...] mother. Rapid 3 Exam: Vital Signs: BP 138/74 | Wt 89.812 kg (198 lb) | BMI 32.95 kg/(m^2) Pain Score: Gen: Well nourished, well developed, in NAD HEENT: PERRLA, EOMI, O/P clear, no facial rash or alopecia Neck: supple, no lymphadenopathy, FROM Lungs: clear to ausculation bilaterally CVS: S1S2, RRR, no murmurs, rubs or gallops Abd: normal BS, soft, NT, ND Ext: no clubbing, cyanosis or edema M/S: [...] methotrexate and plaquenil for more sue n a year and does not think that this is helping her. 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 She does not have any synovitis or extra-articular features of RA. At this ti me she does not have features suggestive of inflammation in the joints and I will continue t o taper the dose of methotrexate and plaquenil. She will lower the dose of Plaquenil to 200 mg once a day. I am repeating the labs today and will also check for the ESR. Despite the la bs, I am not convinced that she has RA. She will let me know how she is doing in 6 weeks. Plan: I reviewed the patient s questionnaire which included more than 10 review of systems. I s pent 20 minutes [id number] with the patient with over 50% in counseling the patient regard ing joint pain. Orders Placed This Encounter CBC, W/ DIFF Complete Metabolic Panel ESR (Sedimentation rate) hydroxychloroquine (PLAQUENIL) 200 mg oral tablet Continue current medications. Review in 8 weeks. docum ented in this encounter Plan of Treatment Not on filedocumented as of this encounter Results SEDIMENTATION RATE (09/02/2013 12:33 PM PDT) + +-------+ + + + | Component | Value | Ref Range | Performed | Pathologist | | | | | At | Signature | + +-------+ + + + | SEDIMENTATI | 23 | 0 - 30 mm/hr | [facility] [...] | + + + + + | [facility] | [address] | [place] [address] | | | SERVICES, CORE | [address] | | | + + + + + COMPLETE METABOLIC SET (NA,K,CL,CO2,BUN,CREAT,GLUC,CA,AST,ALT,BILI TOTAL,ALK PHOS,ALB,PROT TOTAL) (09/02/2013 12:33 PM PDT) + +---------+ + + + | Component | Value | Ref Range | Performed | Pathologist | | | | | At | Signature | + +---------+ + + + | GLUCOSE, | 87 | 60 - 99 mg/dL | [facility] [...] +---------+ + + + | CREATININE | 0.92 | 0.60 - 1.10 | [facility] | | | PLASMA | | mg/dL | LABORATORY | | | (LAB) | | | SERVICES, | | | | | | CORE | | + +---------+ + + + | EGFR | >60 | >60 mL/min | [facility] | | | - | | | LABORATORY | | | NIGERIEN | | | SERVICES, | | | | | | CORE | | + +---------+ + + + | EGFR NON | 60 (L) | >60 mL/min | [facility] | [...] +---------+ + + + | CALCIUM, | 9.8 | 8.6 - 10.2 | [facility] | [...] +---------+ + + + | ALBUMIN, | 3.8 | 3.5 - 4.7 g/dL | [facility] | | | PLASMA | | | LABORATORY | | | (LAB) | | | SERVICES, | | | | | | CORE | | + +---------+ + + + | ALK PHOS | 73 | 53 - 141 U/L | [facility] | | | | | | LABORATORY | | | | | | SERVICES, | | | | | | CORE | | + +---------+ + + + | AST(SGOT) | 29 | 15 - 41 U/L | [facility] | | | | | | LABORATORY | | | | | | SERVICES, | | | | | | CORE | | + +---------+ + + + | ALT (SGPT) | 31 | 12 - 60 U/L | [facility] [...] + + + | ANION GAP | 7 | mmol/L | [facility] | | | [...] [facility] [place] | [address] | [place] [address] | | | SERVICES, CORE | [address] | | | + + + + + documented in this encounter Visit Diagnoses + + | Diagnosis | + + | Fibromyalgia - Primary Mylagia and myositis, unspecified | + + documented in this encounter"
--- OUTSIDE RECORDS SUMMARY | ~2019-05-17 | XMS | Encounter Summary ---
Demographics + + + | Address | [address] | | | [place] [address] | + + + | Home Phone | | + + + | Preferred Language | Unknown | + + + | Marital Status | | + + + | Shinto Affiliation | 1077 | + + + | Race | Unknown | + + + | Ethnic Group | Unknown | + + + Author + + + | Author | [facility] | | | and Azana | + + + | Organization | [facility] | [...] [place], [place] | | | | | [address] | | + + + + + | Helena Doherty | ECON | [place], | | | | | [place] [address] | | + + + + + Care Team Providers + +------+ + | Care Laborer Powerhouse Name | Role | Phone | + +------+ + | Nathan Luevano DO | PCP | | + +------+ + Encounter Details +--------+ + + + + | Date | Type | Department | Care Team | Description | +--------+ + + + + | 01/13/ | Orders Only | [facility] | Provider, | Chronic kidney | | 2018 | | SYSTEM GENERIC OP | MD [address] | disease, stage III | | | | CONVERSION [address] | [address] | (moderate) (HCC); | | | | [address] [address], [place] | [place] [address] | Essential (primary) | | | | [address] | | hypertension; | | | | [phone] | | Proteinuria; | | | | | | Overweight | +--------+ + + + + Social [...] | | | | | [place] [address] | | | | | | [phone] | | | | | | | | | | | | Solid Propellant ProcessorNaomi | | +--------+ + + + + + +------+--------+ + + | Name | Type | Priori | Associated Diagnoses | Order Schedule | | | | ty | | | + +------+--------+ + + | Renal Function Panel | Lab | Routin | Chronic kidney | Expected: | | | | e | disease, stage III | 11/07/2018, Expires: | | | | | (moderate) (HCC) | 11/07/2019 | | | | | Essential (primary) | | | | | | hypertension | | | | | | Proteinuria | | | | | | Overweight | | + +------+--------+ + + | CBC with | Lab | Routin | Chronic kidney | Expected: | | Differential | | e | disease, stage III | 11/07/2018, Expires: | | | | | (moderate) ([facility]) | 11/07/2019 | | | | | Essential (primary) | | | | | | hypertension | | | | | | Proteinuria | | | | | | Overweight | | + +------+--------+ + + | Parathyroid Hormone, | Lab | Routin | Chronic kidney | Expected: | | Intact | | e | disease, stage III | 11/07/2018, Expires: | | | | | (moderate) ([facility]) | 11/07/2019 | | | | | Essential (primary) | | | | | | hypertension | | | | | | Proteinuria | | | | | | Overweight | | + +------+--------+ + + | Microalbumin/Creatin | Lab | Routin | Chronic kidney | Expected: | | ine Ratio, Urine | | e | disease, stage III | 11/07/2018, Expires: | | | | | (moderate) ([facility]) | 11/07/2019 | | | | | Essential (primary) | | | | | | hypertension | | | | | | Proteinuria | | | | | | Overweight | | + +------+--------+ + + documented as of this encounter Visit Diagnoses + + | Diagnosis | + + | Chronic kidney disease, stage III (moderate) (HCC) Chronic kidney disease, Stage III | | (moderate) | + + | Essential (primary) hypertension Unspecified essential hypertension | + + | Proteinuria | + + | Overweight | + + documented in this encounter"
--- OUTSIDE RECORDS SUMMARY | ~2019-05-17 | XMS | Encounter Summary ---
Demographics + + + | Address | [address] | | | [place] [address] | + + + | Home Phone | | + + + | Preferred Language | Unknown | + + + | Marital Status | | + + + | Hoahaoism Affiliation | 1077 | + + + | Race | Unknown | + + + | Ethnic Group | Unknown | + + + Author + + + | Author | [facility] | | | and [place] | + + + | Organization | [facility] | | | and [place] | + + + | Address | Unknown | + + + | Phone | Unavailable | + + + Support + + + + + | Name | Relationship | Address | Phone | + + + + + | Alon Santiago | KATERIN | [address] | | | | | [place], [place] | | | | | [address] | | + + + + + | Helena Doherty | ECON | [place], | | | | | [place] [address] | | + + + + + Care Team Providers + +------+ + | Care Winder Tender Name | Role | Phone | + +------+ + | Nathan Luevano DO | PCP | | + +------+ + Encounter Details +--------+ + + + + | Date | Type | Department | Care Team | Description | +--------+ + + + + | 09/13/ | Orders Only | [facility] | Conversion | | | 2018 | | NEPHROLOGY [place] | Transaction, | | | | | [address] [place] | Provider Unknown | | | | | [address] [place], [place] | | | | | | [address] | (Fax) | | | | | [phone] | | | +--------+ + + + [...] | | | | | [place] [address] | | | | | | [phone] | | | | | | | | | | | | Dance Studio ManagerNaomi | | +--------+ + + + [...]
--- OUTSIDE RECORDS SUMMARY | ~2019-05-17 | XMS | Encounter Summary ---
Demographics + + + | Address | [address] | | | [place] [address] | + + + | Home Phone [...] [facility] | | | and [place] | + + + | Organization | [facility] | | [...] [place], [place] | | | | | [address] | | + + + + + | Helena Doherty | ECON | [place], | | | | | [place] [address] | | + + + + + Care Team Providers + +------+ + | Care Straw Hat Plunger Operator Name | Role | Phone | + +------+ + | Nathan Luevano DO | PCP | | + +------+ + Reason for Visit + + + | Reason | Comments | + + + | Appointment | | + + + Encounter Details +--------+ + + + + | Date | Type | Department | Care Team | Description | +--------+ + + + + | 02/19/ | Telephone | [facility] | Agusto Pereira MD | Appointment | | 2017 | | NEUROSURGERY [address] | [address] | | | | | [facility] [address] | [place] [address] | | | | | [place] | [phone] | | | | | [address] | | | | | | [phone] | | | +--------+ + + + [...] | | | | | [place] [address] | | | | | | [phone] | | | | | | | | | | | | Rubber Stamp Die InspectorNaomi | | +--------+ + + + + documented as of this encounter Visit Diagnoses Not on filedocumented in this encounter"
--- OUTSIDE RECORDS SUMMARY | ~2019-05-17 | XMS | Encounter Summary ---
Demographics + + + | Address | [address] [facility] | | | [place] [address] | + + + | Home Phone [...] + + + | Author | [facility] | + + + | Organization | [facility] | + + + | Address | Unknown | + + + | Phone | Unavailable | + + + Support + + +---------+ + | Name | Relationship | Address | Phone | + + +---------+ + | Alon Santiago | ECON | Unknown | | + + +---------+ + Care Team Providers + +------+ + | Care Storeperson Name | Role | Phone | + [...] arthritis(71 | Sophia K, | [address] | | | | | 4.0) ([facility]) | [place] [address] | [place]ael [address] | | | | | Myalgia and | [address] | [address] [place], | | | | | myositis, | [place], | [place] | | | | | unspecified | [place] [address] | [address] | | | | | Procedures | Phone: | Phone: | | | | | [place] | [phone] | [phone] | | | | | OFFICE/OUTPT | Fax: | Fax: | | | | | | [phone] | [phone] | | | | | VISIT,EST,LE | | | | | | | PASQUALE III | | | +--------+--------+ + + + + Encounter Details +--------+---------+ + + + | Date | Type | Department | Care Team | Description | +--------+---------+ + + + | 11/15/ | Office | Rheumatology at | Mami Lucia MD | Rheumatoid arthritis | | 2016 | Visit | [facility] | [address] | involving both | | | | [address] | [address] [place], | hands with positive | | | | Amara Chatman Mailcode: | [place] [id number] | rheumatoid factor | | | | OP09 Physician's | [phone] | ([facility]) (Primary Dx) | | | | [address], [address] | | | | | | [place], [place] | | | | | | [address] | | | | | | [phone] | | | +--------+---------+ + + + [...] + + + | Blood Pressure | 152/56 | 11/16/2015 2:43 PM | | | | | PDT | | + + + + + | Pulse | 82 | 11/16/2015 2:43 PM | | | | | PDT [...] Weight | 88 kg (194 lb) | 11/16/2015 2:43 PM | | | | | PDT | | + + + + + | Height | 167.6 cm (5' 6") | 11/16/2015 2:43 PM | | | | | PDT | | + + + + + | Body Mass Index | 31.31 | 11/16/2015 2:43 PM | | | | | PDT | | + + + + + documented in this encounter Patient Instructions Patient Instructions Spencer Wasserman - 11/16/2015 3:09 PM PDTIt was nice to see you today. Please get the blood work done that we discussed. Please find out what medication you took that caused withdrawals and let me know so I can a dd it to the allergies section of your chart. Please review the handouts and let me know if you would like to try these medications. If you have any questions please send me an email. pilocarpine (oral) Pronunciation: IZZY arriaza Brand: Salagen What is pilocarpine? Pilocarpine affects the nervous system and increases saliva secretion in the mouth. Pilocarpine is used to treat dry mouth caused by Sjogren's syndrome, or by radiation to adri at head and neck cancer. Pilocarpine may also be used for purposes not listed in this medication guide. What should I discuss with my healthcare provider before taking pilocarpine? You should not use pilocarpine if you are allergic to it, or if you have: untreated or uncontrolled asthma; or narrow-angle glaucoma. To make sure pilocarpine is safe for you, tell your doctor if you have: asthma, chronic bronchitis, chronic obstructive pulmonary disease (COPD), or other breat cheikh disorder; glaucoma or vision problems; liver disease; kidney disease; heart disease; gallbladder problems; mental illness; if you take heart or blood pressure medicine; or if you use a bronchodilator to treat a breathing disorder. FDA category C. It is not known whether pilocarpine will harm an unborn baby. Tel l your doctor if you are or plan to become while using this medicine. It is not known whether pilocarpine passes into breast milk or if it could harm a nursing b sindy. You should not breast-feed while using this medicine. How should I take pilocarpine? Follow all directions on your prescription label. Do not take this medicine in larger or sm aller amounts or for longer than recommended. You may take pilocarpine with or without food. Drink plenty of liquids while you are taking pilocarpine. This medicine can cause increased sweating and you may get dehydrated easily. Use pilocarpine regularly to get the most benefit. Get your prescription refilled before yo u run out of medicine completely. Store at room temperature away from moisture and heat. What happens if I miss a dose? Take the missed dose as soon as you remember. Skip the missed dose if it is almost time for your next scheduled dose. Do not take extra medicine to make up the missed dose. What happens if I overdose? Seek emergency medical attention or call the Poison Help line at . An overdos e of pilocarpine can be fatal at very high doses. What should I avoid while taking pilocarpine? This medicine may cause blurred vision, especially at night or in low light. Be careful if you drive or do anything that requires you to be able to see clearly. Avoid becoming overheated during exercise and in hot weather. Pilocarpine can increase swea ting and you may be more prone to dehydration. What are the possible side effects of pilocarpine? Get emergency medical help if you have any of these signs of an allergic reaction: hives; d ifficult breathing; swelling of your face, lips, tongue, or throat. Stop using pilocarpine and call your doctor at once if you have: shortness of breath; fast or slow heart rate; severe headache, pounding in your neck or ears; confusion, tremors; or a light-headed feeling, like you might pass out. Common side effects may include: increased sweating, urinating more than usual; chills, or flushing (warmth, redness, or tingly feeling); headache, dizziness, weakness; nausea, vomiting, diarrhea; blurred vision, watery eyes; or runny nose. This is not a complete list of side effects and others may occur. Call your doctor for [employer] advice about side effects. You may report side effects to FDA at 0-975-XMT-2523. What other drugs will affect pilocarpine? Other drugs may interact with pilocarpine, including prescription and olmw-hcr-everbrx medi cines, vitamins, and herbal products. Tell each of your health care providers about all medi cines you use now and any medicine you start or stop using. Where can I get more information? Your pharmacist can provide more information about pilocarpine. Remember, keep this and all other medicines out of the reach of children, never share your medicines with others, and use this medication only for the indication prescribed. Every effort has been made to ensure that the information provided by [employer]. ( '[employer]') is accurate, up-to-date, and complete, but no guarantee is made to that effect. Dr kirill information contained herein may be time sensitive. [employer] information has been compiled for use by healthcare practitioners and consumers in the [place] and therefore [employer] does not warrant that uses outside of the [place] are appropriate, unless specifically indicated otherwise. [employer] drug information does not endorse drugs, diagnose patients or recommend therapy. [employer] drug information is an informational resource designed [...] effective or appropriate for any given patient. [employer] does not assume any respon sibility for any aspect of healthcare administered with the aid of information [employer] provid es. The information contained herein is not intended to cover all possible uses, directions, precautions, warnings, drug interactions, allergic reactions, or adverse effects. If you quach ve questions about the drugs you are taking, check with your doctor, nurse or pharmacist. Copyright 1315-4644 [employer]. Version: 2.02. Revision date: 12/08/2013. This information does not replace the advice of a doctor. [employer] disclaim s any warranty or liability for your use of this information. Content Version: 10.8.028576 cevimeline Pronunciation: se kashmir foster Brand: Evoxac What is cevimeline? Cevimeline increases the secretions of the saliva and sweat glands in the body. Cevimeline is used to treat dry mouth in people with Sjogren's Syndrome. Cevimeline may also be used for other purposes not listed in this medication guide. What should I tell my healthcare provider before taking cevimeline? Do not take this medication if you are allergic to cevimeline, or if you have: untreated or uncontrolled asthma; glaucoma; or an eye condition called iritis or uveitis. Before taking cevimeline, tell your doctor if you are allergic to any drugs, or if you have : heart disease, heart rhythm disorder, angina (chest pain), or a history of heart attack; high blood pressure (hypertension); asthma, chronic bronchitis, or chronic obstructive pulmonary disease (COPD); or a history of kidney stones or gallstones. If you have any of these conditions, you may need a dose adjustment or special tests to saf rigoberto take cevimeline. FDA category C. This medication may be harmful to an unborn baby. Tell your docto r if you are or plan to become during treatment. It is not known whether cevimeline passes into breast milk or if it could harm a nursing ba by. Do not use this medication without telling your doctor if you are breast-feeding a baby. How should I take cevimeline? Take this medication exactly as it was prescribed for you. Do not take the medication in la rger amounts, or take it for longer than recommended by your doctor. Follow the directions o n your prescription label. Take this medication with a full glass of water. Cevimeline is usually taken three times a day. Follow your doctor's instructions. Store cevimeline at room temperature away from moisture and heat. What happens if I miss a dose? Take the missed dose as soon as you remember. If it is almost time for your next dose, skip the missed dose and take the medicine at your next regularly scheduled time. Do not take e xtra medicine to make up the missed dose. What happens if I overdose? Seek emergency medical attention if you think you have used too much of this medicine. Overdose symptoms may include headache, blurred vision, watery eyes, confusion, sweating, t remors or shaking, nausea, vomiting, diarrhea, stomach pain, trouble breathing, and fast, sl ow, or uneven heart rate. What should I avoid while taking cevimeline? Cevimeline can cause side effects that may impair your vision, especially at night. Be care ful if you drive or do anything that requires you to be able to see clearly. Avoid becoming overheated or dehydrated during exercise and in hot weather. Cevimeline may cause excessive sweating and you may get dehydrated more easily while taking this medication . Follow your doctor's instructions about the type and amount of liquids you should drink. What are the possible side effects of cevimeline? Get emergency medical help if you have any of these signs of an allergic reaction: hives; difficulty breathing; swelling of your face, lips, tongue, or throat. Stop taking cevimeline and call your doctor at once if you have any of these serious side e ffects: shortness of breath, wheezing, or tightness in your chest; chest pain, uneven heart rate; attacks of severe stomach pain on the right side, extending up to your shoulder (sometim es worse after meals); nausea and vomiting, bloating, fever, chills, and jaundice (yellowing of the skin or eye s); swelling in your hands or feet; eye pain or drainage; fever, ear ache, flu symptoms; or white patches or sores inside your mouth or on your lips. Less serious side effects may include: blurred vision, dry eyes; excessive sweating or salivating, drooling; runny or stuffy nose; nausea, diarrhea, constipation, loss of appetite; dry mouth; muscle pain; vaginal itching or discharge; This is not a complete list of side effects and others may occur. Tell your doctor about an y unusual or bothersome side effect. You may report side effects to FDA at 6-057-OSU-0124. What other drugs will affect cevimeline? Before taking cevimeline, tell your doctor if you are using any of the following drugs: amiodarone (Cordarone, Pacerone); cimetidine (Tagamet); cyclosporine (Gengraf, Neoral, Sandimmune); metronidazole (Flagyl, Protostat); antibiotics such as azithromycin (Zithromax), ciprofloxacin (Cipro), clarithromycin (Analy rose mary), erythromycin (E-Mycin, E.E.S., Arya-Tab, Erythrocin), itraconazole (Sporanox), or ketoc onazole (Nizoral); antidepressants such as citalopram (Celexa), escitalopram (Lexapro), fluoxetine (Prozac, Sarafem), fluvoxamine (Luvox), paroxetine (Paxil), or sertraline (Zoloft); asthma medicines such as albuterol (Proventil, Ventolin, others), bitolterol (Tornalate) , epinephrine (Asthmahaler, Bronkaid, Primatene Mist Inhaler), isoetharine (Bronkometer, Bro nkosol), metaproterenol (Alupent, Metaprel), pirbuterol (Maxair), salmeterol (Serevent), or terbutaline (Brethaire, Brethine); heart or blood pressure medication such as diltiazem (Cardizem, Dilacor, Tiazac) or vera pamil (Calan, Covera, Isoptin, Verelan), acebutolol (Sectral), atenolol (Tenormin), carvedil ol (Coreg), labetalol (Normodyne, Trandate), metoprolol (Lopressor, Toprol), nadolol (Corgar d), propranolol (Inderal, InnoPran), sotalol (Betapace), timolol (Blocadren), and others; or HIV /AIDS medicine such as amprenavir (Agenerase), delavirdine (Rescriptor), indinavir ( Crixivan), nelfinavir (Viracept), nevirapine (Viramune), ritonavir (Norvir), or saquinavir ( Invirase, Fortovase). This list is not complete and there may be other drugs that can interact with cevimeline. T ell your doctor about all the prescription and shwk-biq-rwopmha medications you use. This in cludes vitamins, minerals, herbal products, and drugs prescribed by other doctors. Do not st art using a new medication without telling your doctor. Where can I get more information? Your pharmacist can provide more information about cevimeline. Remember, keep this and all other medicines out of the reach of children, never share your medicines with others, and use this medication only for the indication prescribed. Every effort has been made to ensure that the information provided by [employer]. ( '[employer]') is accurate, up-to-date, and complete, but no guarantee is made to that effect. Dr roy information contained herein may be time sensitive. [employer] information has been compiled for use by healthcare practitioners and consumers in the [place] and therefore [employer] does not warrant that uses outside of the [place] are appropriate, unless specifically indicated otherwise. [employer] drug information does not endorse drugs, diagnose patients or recommend therapy. [employer] drug information is an informational resource designed [...] effective or appropriate for any given patient. [employer] does not assume any respon sibility for any aspect of healthcare administered with the aid of information [facility] provid es. The information contained herein is not intended to cover all possible uses, directions, precautions, warnings, drug interactions, allergic reactions, or adverse effects. If you quach ve questions about the drugs you are taking, check with your doctor, nurse or pharmacist. Copyright 9084-4298 [employer]. Version: 2.07. Revision date: 06/08/2010. This information does not replace the advice of a doctor. [employer] disclaim s any warranty or liability for your use of this information. Content Version: 10.8.149332 documented in this encounter Progress Notes Mami Lucia MD - 11/16/2015 2:34 PM PDTFormatting of this note might be different from t toby original. Progress Note Clinic: Rheumatology I, Spencer Wasserman, am functioning as a scribe for Dr. Mami Lucia MD. 11/16/2015 2:34 PM Reason for follow-up: Fibromyalgia and RA Background: Ms Santiago is a 75 y.o. female, here for fibromyalgia and RA. She has had joint pain for the past 10-15 years that has worsened recently in the past couple of years. Her PC P diagnosed her with RA on the basis of labs but Dr Shelton, who was her Clothing Consultant, was not sure if the symptoms were from RA. She has been taking methotrexate and Plaquenil. She used prednisone in the past and made her depressed and she gained weight. She does not know if it helped her with the pain. Pt had rotator cuff surgery in April, and was prescr ibed tramadol, which she did not tolerate well. She also had withdrawal from Dilaudid. Interval History: Her joints have not been doing well. Her hands and arms fall asleep while she is sleeping. This happens on both sides. Her hands are also painful. She is going to ph ysical therapy and has DDD of her spine she thinks is due to this. She was diagnosed with sp ondylosis in 2011 from a neurologist. She has not seen a neurosurgeon to assess the DDD and arms falling asleep. Her hips hurt on the sides and her lower back and knees are painful. He r left knee has a torn meniscus. The arches of her feet are painful with inactivity. If she stands for too long her lower back becomes stiff so she is unable to move her torso and can lose her balance because of this. Joints are not red, hot or swollen. EMS for 4 hours. Acti vity does not improve the pain. She does physical therapy daily at home and goes to a gym to do the therapy twice a week. Doing her exercises causes the numbness and pain to occur in h er arms and hands. Pt is currently taking 10 mg of methotrexate a week and 100 mg of plaquen il a day. Her vision is blurred but eye exam done recently was normal. She has sores in her mouth and on her tongue. She also has eye and mouth dryness. ROS: See scanned questionnaire that I reviewed Previously obtained history (not reviewed today) PMH: Past Medical History Diagnosis Date Fibromyalgia Arthropathy, unspecified, site unspecified Other general symptoms(780.99) IBS (irritable bowel syndrome) HTN (hypertension), benign Endometriosis Melanoma (HCC) PSH: Past Surgical History Procedure Laterality Date Laparotomy 1959 Pr foot/toes surgery proc unlisted Appendectomy Cataract removal Hysterectomy with ovaries age 32 Retinal detachment repair Repair of cystocele and rectocele Bunion surgery Cholecystectomy Rotator cuff repair Meds: Current Outpatient Prescriptions Medication Sig BIOTIN ORAL Take 1,000 mg by mouth three times daily. busPIRone 7.5 mg oral tablet Take 7.5 mg by mouth three times daily. cholecalciferol, Vitamin D3, 1,000 unit oral tablet Take 2,000 Units by mouth two times daily. docusate sodium 100 mg oral capsule Take 100 mg by mouth once daily. folic acid 1 mg oral tablet Take 1 tablet by mouth once daily. hydrochlorothiazide 25 mg oral tablet Take 12.5 mg by mouth once daily. hydroxychloroquine (PLAQUENIL) 200 mg oral tablet Take 1 tablet by mouth two times nadine y. losartan 25 mg oral tablet Take 50 mg by mouth once daily. Lysine 500 mg OR CAPS 1 tablet daily methotrexate 2.5 mg oral tablet Take 4 tablets by mouth every seven days for 91 days. ranitidine (ZANTAC) 150 mg Oral tablet Take 150 mg by mouth as needed. traZODone 50 mg oral tablet Take 50 mg by mouth once daily at bedtime. VIT A/VIT C/VIT E/ZINC/COPPER (PRESERVISION AREDS ORAL) Take by mouth. No current facility-administered medications for this visit. Allergies: Hydromorphone; Morphine; Adhesive tape; Bextra; Cardizem; Celexa; Codeine; Cymba lta; Imdur; Lexapro; Nexium; Oxycodone; and Tramadol Social History: Ashly reports that she has never smoked. She does not have any smokeless tobacco history on file. She reports that she does not drink alcohol. Vaccinations: There is no immunization history on file for this patient. FH: family history includes Additional Family History in her father (Parkinson's); Arthriti s in her sister; Heart Disease in her mother; and Stroke in her mother. Rapid 3 Exam: Vital Signs: BP 152/56 | Pulse 82 | Ht 1.676 m (5' 6") | Wt 87.998 kg (194 lb) | BMI 31.33 kg/(m^2) Pain Score: Gen: Well nourished, well developed, in NAD HEENT: PERRLA, EOMI, O/P clear, no facial rash or alopecia Neck: supple, no lymphadenopathy, FROM Ext: no clubbing, cyanosis or edema M/S: no synovitis; diffuse joint tenderness excluding the DIP in the hands, full ROM throug hout joints of upper and lower extremities Skin: no abnormalities Labs: Lab Results Component Value Date WBC 7.58 06/15/2015 RBC 3.53* 06/15/2015 HCT 34.5* 06/15/2015 HB 10.8* 06/15/2015 MCV 97.7* 06/15/2015 MCHC 31.3 06/15/2015 PLT 270 06/15/2015 NEUTROPERC 69.3 06/15/2015 LYMPHPERC 19.7 06/15/2015 MONOPERC 8.3 06/15/2015 EOSPERC 1.2 06/15/2015 BASOPERC 0.8 06/15/2015 NEUTROPHILCO 5.26 06/15/2015 GLU 97 06/15/2015 BUN 19 06/15/2015 CR 0.80 06/15/2015 TP 6.9 06/15/2015 ALB 3.5 06/15/2015 CA 9.2 06/15/2015 TBILI 0.4 06/15/2015 AP 99 06/15/2015 AST 25 06/15/2015 NA 137 06/15/2015 K 3.9 06/15/2015 CL 104 06/15/2015 BICARB 27 06/15/2015 ALT 16 06/15/2015 Lab Results Component Value Date ESR 37* 06/15/2015 Radiology: 06/14/15 1349 Value: STUDY: SPINE LUMBOSACRAL 2 VIEWS 06/14/15 13:49:00 HISTORY: Pain COMPARISON: None FINDINGS: There is no fracture or focal osseous destruction. Vertebral body heights are maintained. There is 5 mm of retrolisthesis L2-3. Levoscoliosis of the lumbar spine is present centered at L4-L5 measuring 15 degrees. There is diffuse osteopenia. There is diffuse moderate disc height loss and endplate spurring. There is lower lumbar facet arthropathy. The SI joints are maintained. There is no soft tissue abnormality. IMPRESSION: Moderate degenerative disc disease throughout the lumbar spine. L2-3 retrolisthesis and lumbar levoscoliosis. Lower lumbar facet arthropathy. Diffuse osteopenia. Attending Radiologists: RICHIE HOPKINS MD Author: YANA RIVERA MD I personally reviewed the images and, if necessary, edited the report. I agree with the report as now presented. Final/Electronically signed / RICHIE HOPKINS 06/14/2015 14:16 PM Impression: This is a 75 y.o. female, here for evaluation of joint [...] backache that are unrelated to the RA. She has sicca symp toms that could be from Sjogren's Syndrome. I have ordered serologies to be done to assess t his. I recommend she try pilocarpine or cevimeline to help with the dryness in the mouth sue t is currently the major issue. Plan: I spent 25 minutes evbk-tn-bxph with the patient with over 50% in counseling the patient re garding fibromyalgia and RA. Orders Placed This Encounter CBC, W/ DIFF Complete Metabolic Panel ESR (Sedimentation rate) EZEQUIEL by STEVE w/Reflex to IFA Patter and AB ID When Indic SSA (Anti Ro Antibody) SSB (Anti La Antibody) Continue current medications. Review in 6 months. I have reviewed and verified the above scribed note of my visit with this patient as record ed by Spencer Wasserman. MAMI LUCIA MD RHEUMATOLOGY ATTENDING [address] [place] [address] Mailcode: [id number] [facility] [place] [id number] documented in this encou nter Plan of Treatment Not on filedocumented as of this encounter Results SSB AB (11/16/2015 3:56 PM PDT) + + + + + + | Component | Value | Ref Range | Performed | Pathologist | | | | | At | Signature | + + + + + + | SSB (LA) | 2Comment: INTERPRETIVE | 0 - 40 AU/mL | [facility] | | | AB, IGG | INFORMATION: SSB (La) | | REG UNIV | | | | (GRAEME) Ab, IgG 29 | | PTH - INTFC | | | | AU/mL or Less | | | | | | ............. Negative | | | | | | 30 - 40 AU/mL | | | | | | ................ | | | | | | Equivocal 41 AU/mL or | | | | | | Greater .......... | | | | | | Positive SSB (La) | | | | | | antibody is seen in | | | | | | 50-60% of Sjogren | | | | | | syndrome cases and is | | | | | | specific if it is the | | | | | | only GRAEME antibody | | | | | | present. 15-25% of | | | | | | patients with systemic | | | | | | lupus erythematosus | | | | | | (SLE) and 5-10% of | | | | | | patients with | | | | | | progressive systemic | | | | | | sclerosis (PSS) also | | | | | | have this | | | | | | antibody.Performed by | | | | | | [employer],[address] | | | | | | Alisia Velasquez, [facility] [place] [place] | | | | | | [address] | | | | | | [email or web address]. | | | | | | Delvis [...] [facility] | [address] | [place], [place] | | | UNIV PTH - INTFC | | [address] | | + + + + + SSA AB (11/16/2015 3:56 PM PDT) + + + + + + | Component | Value | Ref Range | Performed | Pathologist | | | | | At | Signature | + + + + + + | SSA 52 (RO) | 15Comment: INTERPRETIVE | 0 - 40 AU/mL | [facility] | | | AB, IGG | INFORMATION: SSA (Ro) | | REG UNIV | | | | (GRAEME) Ab, IgG 29 | | PTH - INTFC | | | | AU/mL or Less | | | | | | ............. Negative | | | | | | 30 - 40 AU/mL | | | | | | ................ | | | | | | Equivocal 41 AU/mL or | | | | | | Greater .......... | | | | | | Positive SSA (Ro) | | | | | | antibody is seen in | | | | | | 70-75 percentage of | | | | | | Sjogren syndrome cases, | | | | | | 30-40% of systemic lupus | | | | | | erythematosus (SLE) and | | | | | | 5-10 percentage of | | | | | | progressive systemic | | | | | | sclerosis (PSS). | | | | + + + + + + | SSA 60 (RO) | 4Comment: 29 AU/mL or | 0 - 40 AU/mL | [facility] | | | (GRAEME) | Less ............. | | REG UNIV | | | ANTIBODY, | Negative 30 - 40 AU/mL | | PTH - INTFC | | | IGG | ................ | | | | | | Equivocal 41 AU/mL or | | | | | | Greater .......... | | | | | | PositivePerformed by | | | | | | [employer],[address] | [address], [facility] [place] | | | | | | [address] | | | | | | [phone]. | | | | | | Delvis copeland, | | | | | | Wendy MARROQUIN. Director | | | | + + + + + + + + | Specimen | + + | Blood - Blood | + + + + + + + | Performing | Address | City/State/Zipcode | Phone Number | | Organization | | | | + + + + + | [facility] | [address] | [place], [place] | | | UNIV PTH - INTFC | | [address] | | + + + + + EZEQUIEL BY STEVE W/REFLEX TO IFA PATTERN & AB ID WHEN INDICATED (11/16/2015 3:56 PM PDT) + + + + + + | Component | Value | Ref Range | Performed | Pathologist | | | | | At | Signature | + + + + + + | ANTI-NUCLEA | None DetectedComment: No | None Detected | [facility] | | | R AB(EZEQUIEL), | antibodies to | | REG UNIV | | | IGG BY | Anti-Nuclear Antibodies | | PTH - INTFC | | | STEVE | (EZEQUIEL) detected. No | | | | | | further testing will be | | | | | | performed.INTERPRETIVE | | | | | | INFORMATION: | | | | | | Anti-Nuclear Antibodies | | | | | | (EZEQUIEL), IgG by STEVE EZEQUIEL | | | | | | specimens are screened | | | | | | using enzyme-linked | | | | | | immunosorbent assay | | | | | | (STEVE) methodology. All | | | | | | STEVE results reported | | | | | | as Detected are further | | | | | | tested by indirect | | | | | | fluorescent assay (IFA) | | | | | | using HEp-2 substrate | | | | | | with an IgG-specific | | | | | | conjugate. The EZEQUIEL STEVE | | | | | | screen is designed to | | | | | | detect antibodies | | | | | | against dsDNA, histone, | | | | | | SS-A (Ro), SS-B (La), | | | | | | Sams, snRNP/Sm, Scl-70, | | | | | | Janeth-1, centromere, and | | | | | | an extract of lysed | | | | | | HEp-2 cells. EZEQUIEL STEVE | | | | | | assays have been | | | | | | reported to have lower | | | | | | sensitivities for | | | | | | antibodies associated | | | | | | with nucleolar and | | | | | | speckled EZEQUIEL-IFA | | | | | | patterns.Performed by | | | | | | [employer],[address] | | | | | | [address] [facility], [facility] [place] | | | | | | [address] | | | | | | [phone]. | | | | | | dinorah, Delvis Ugarte, | | | | | | , [...] [facility] | [address] | [place], [place] | | | UNIV PTH - INTFC | | [address] | | + + + + + SEDIMENTATION RATE (11/16/2015 3:56 PM PDT) + +-------+ + + + | Component | Value | Ref Range | Performed | Pathologist | | | | | At | Signature | + +-------+ + + + | SEDIMENTATI | 20 | 0 - 30 mm/hr | [facility] [...] | [facility] | [address] | [place] [address] | | | SERVICES, CORE | [address] | | | + + + + + COMPLETE METABOLIC SET (NA,K,CL,CO2,BUN,CREAT,GLUC,CA,AST,ALT,BILI TOTAL,ALK PHOS,ALB,PROT TOTAL) (11/16/2015 3:56 PM PDT) + +---------+ + + + | Component | Value | Ref Range | Performed | Pathologist | | | | | At | Signature | + +---------+ + + + | GLUCOSE, | 101 (H) | 60 - 99 mg/dL | [...] +---------+ + + + | CREATININE | 1.07 | 0.60 - 1.10 | [facility] | | | PLASMA | | mg/dL | LABORATORY | | | (LAB) | | | SERVICES, | | | | | | CORE | | + +---------+ + + + | EGFR | 60 (L) | >60 mL/min | [facility] | | | - | | | LABORATORY | | | DOMINICAN | | | SERVICES, | | | | | | CORE | | + +---------+ + + + | EGFR NON | 50 (L) | >60 mL/min | [facility] | | | -REI | | | LABORATORY | | | RICAN | | | SERVICES, | | | | | | CORE | | + +---------+ + + + | SODIUM, | 141 | 136 - 145 | [facility] | | | PLASMA | | mmol/L | LABORATORY | | | (LAB) | | | SERVICES, | | | | | | CORE | | + +---------+ + + + | POTASSIUM, | 3.8 | 3.4 - 5.0 | [facility] | [...] +---------+ + + + | TOTAL | 7.1 | 6.4 - 8.2 g/dL | [facility] [...] + + + | ALK PHOS | 113 | 53 - 141 U/L | [facility] [...] + + + | ALT (SGPT) | 26 | <=60 U/L | [facility] | | [...] | + + + + + | [facility] | [address] | [place] [address] | | | SERVICES, CORE | [address] | | | + + + + + documented in this encounter Visit Diagnoses + + | Diagnosis | + + | Rheumatoid arthritis involving both hands with positive rheumatoid factor (HCC) - | | Primary | + + documented in this encounter
--- OUTSIDE RECORDS SUMMARY | ~2019-05-17 | XMS | Encounter Summary ---
Demographics + + + | Address | [address] | | | [place] [address] | + + + | Home Phone | | + + + | Preferred Language | Unknown | + + + | Marital Status | | + + + | Lutheran Affiliation | 1077 | + + + | Race | Unknown | + + + | Ethnic Group | Unknown | + + + Author + + + | Author | [facility] | | | and Azana | + + + | Organization | [facility] | | [...] [place], [place] | | | | | [address] | | + + + + + | Helena Doherty | ECON | [place], | | | | | [place] [address] | | + + + + + Care Team Providers + +------+ + | Care Equipment Application Specialist Name | Role | Phone | + +------+ + | Nathan Luevano DO | PCP | | + +------+ + Reason for Visit + + + | Reason | Comments | + + + | Results, Imaging | Cervical MRI | + + + Encounter Details +--------+ + + + + | Date | Type | Department | Care Team | Description | +--------+ + + + + | 05/02/ | Telephone | [facility] | Andrew Miranda, | Results, Imaging | | 2017 | | PHYSIATRY [address] | PA-C [address] | (Cervical MRI ) | | | | [place], | [address] [place] | | | | | [place] [address] | [place] [address] | | | | | [phone] | [phone] | | | | | | | [...] | | | | | | [place] [address] | | | | | | [phone] | | | | | | | | | | | | Atomic Fuel AssemblerNaomi | | +--------+ + + + + documented as of this encounter Visit Diagnoses Not on filedocumented in this encounter"
--- OUTSIDE RECORDS SUMMARY | ~2019-05-17 | XMS | Encounter Summary ---
Demographics + + + | Address | [address] | | | [place] [address] | + + + | Home Phone | | + + + | Preferred Language | Unknown | + + + | Marital Status | | + + + | Hindu Affiliation | Unknown | + + + | Race | White | + + + | Ethnic Group | Not or | + + + Author + + + | Author | [facility] | + + + | Organization | [facility] | + + + | Address | Unknown | + + + | Phone | Unavailable | + + + Support + + +---------+ + | Name | Relationship | Address | Phone | + + +---------+ + | Alon Santiago | ECON | Unknown | | + + +---------+ + Care Team Providers + +------+ + | Care Lead Systems Architect Name | Role | Phone | + +------+ + | Thee Boss MD | PCP | | + +------+ + Encounter Details +--------+ + + + + | Date | Type | Department | Care Team | Description | +--------+ + + + + | 02/27/ | Documentati | Rheumatology at | Tavia Zuniga | | | 2013 | on | [address] | [place] [address] | | | | | [address] | [address] | | | | | Amara Chatman Mailcode: | [place], [place] | | | | | [address] Physician's | [address] | | | | | [facility] Floor | [phone] | | | | | [place], [place] | | | | | | [address] | | | | | | [phone] | | | +--------+ + + + [...]
--- OUTSIDE RECORDS SUMMARY | ~2019-05-17 | XMS | Encounter Summary ---
Demographics + + + | Address | [address] | | | [place] [address] | + + + | Home Phone [...] [facility] | | | and Azana | + + + | Organization | [facility] | | | and Azana | + + + | Address | Unknown | + + + | Phone | Unavailable | + + + Support + + + + + | Name | Relationship | Address | Phone | + + + + + | Alon Santiago | AKTERIN | [address] | | | | | [place], [place] | | | | | [address] | | + + + + + | Helena Doherty | ECON | [place], | | | | | [place] [address] | | + + + + + Care Team Providers + +------+ + | Care Bulk Pigment Reducer Name | Role | Phone | + +------+ + | Nathan Luevano DO | PCP | | + +------+ + Reason for Visit +--------+ + | Reason | Comments | +--------+ + | Pain | | +--------+ + Encounter Details +--------+ + + + + | Date | Type | Department | Care Team | Description | +--------+ + + + + | 03/07/ | Telephone | [facility] | Agusto Pereira MD | Pain | | 2017 | | NEUROSURGERY [address] | [address] | | | | | [address] | [place] [address] | | | | | [place] | [phone] | | | | | [address] | | | | | | [phone] | | | +--------+ + + + [...] | | | | | [place] [address] | | | | | | [phone] | | | | | | | | | | | | Manager Risk ManagementNaomi | | +--------+ + + + + documented as of this encounter Visit Diagnoses Not on filedocumented in this encounter"
--- OUTSIDE RECORDS SUMMARY | ~2019-05-17 | XMS | Encounter Summary ---
Demographics + + + | Address | [address] | | | [place] [address] | + + + | Home Phone | | + + + | Preferred Language | Unknown | + + + | Marital Status | | + + + | Confucianism Affiliation | 1077 | + + + | Race | Unknown | + + + | Ethnic Group | Unknown | + + + Author + + + | Author | [facility] | | | and Azana | + + + | Organization | [facility] | | | and [...] [place], [place] | | | | | [address] | | + + + + + | Helena Doherty | ECON | [place], | | | | | [place] [address] | | + + + + + Care Team Providers + +------+ + | Care Attending Ambulatory Care Name | Role | Phone | + +------+ + | Nathan Luevano DO | PCP | | + +------+ + Encounter Details +--------+ + + + + | Date | Type | Department | Care Team | Description | +--------+ + + + + | 09/13/ | Orders Only | [facility] | Conversion | | | 2018 | | NEPHROLOGY [place] | Transaction, | | | | | [address] | Provider Unknown | | | | | [address] [place], [place] | | | | | | [address] | (Fax) | | | | | [phone] | | | +--------+ + + + [...] | | | | | [place] [address] | | | | | | [phone] | | | | | | | | | | | | Tree Warden, [employer] | | +--------+ + + + [...]
--- OUTSIDE RECORDS SUMMARY | ~2019-05-17 | XMS | Encounter Summary ---
Demographics + + + | Address | [address] | | | [place] [address] | + + + | Home Phone | | + + + | Preferred Language | Unknown | + + + | Marital Status | | + + + | Gnosticism Affiliation | 1077 | + + + | Race | Unknown | + + + | Ethnic Group | Unknown | + + + Author + + + | Author | [facility] | | | and Azana | + + + | Organization | [facility] | | | and Azana [...] [place], [place] | | | | | [address] | | + + + + + | Helena Doherty | ECON | [place], | | | | | [place] [address] | | + + + + + Care Team Providers + +------+ + | Care Airport Guide Name | Role | Phone | + +------+ + | Nathan Luevano DO | PCP | | + +------+ + Reason for Visit + + + | Reason | Comments | + + + | Diarrhea | | + + + Encounter Details +--------+ + + + + | Date | Type | Department | Care Team | Description | +--------+ + + + + | 05/31/ | Telephone | [facility] | Joshua Hilliard MD | Diarrhea | | 2017 | | GASTROENTEROLOGY | [address], [place] | | | | | [address] [place] | [address] [place] | | | | | [address] [place], [place] | [address] | | | | | [address] | | | | | | [phone] | | | +--------+ + + + [...] | | | | | [address] | | | | | | [place] [address] | | | | | | [phone] | | | | | | | | | | | | Community Health EducatorNaomi | | +--------+ + + + + documented as of this encounter Visit Diagnoses Not on filedocumented in this encounter"
--- OUTSIDE RECORDS SUMMARY | ~2019-05-17 | XMS | Encounter Summary ---
Demographics + + + | Address | [address] | | | [place] [address] | + + + | Home Phone | | + + + | Preferred Language | Unknown | + + + | Marital Status | | + + + | Jehovah'S Witness Affiliation | 1077 | + + + | Race | Unknown | + + + | Ethnic Group | Unknown | + + + Author + + + | Author | [facility] | | | and Azana | + + + | Organization | [facility] | | | and [...] [place], [place] | | | | | [address] | | + + + + + | Helena Doherty | ECON | [place], | | | | | [place] [address] | | + + + + + Care Team Providers + +------+ + | Care Batch Records Clerk Name | Role | Phone | [...] [place] | | | | | | [address] | | | | | | [phone] | | | +--------+ + + + [...] | | | | | [place] [address] | | | | | | [phone] | | | | | | | | | | | | Computer Systems Analyst, [place] | | +--------+ + + + + documented as of this encounter Visit Diagnoses Not on filedocumented in this encounter"
--- OUTSIDE RECORDS SUMMARY | ~2019-05-17 | XMS | Encounter Summary ---
Demographics + + + | Address | [address] | | | [place] [address] | + + + | Home Phone | | + + + | Preferred Language | Unknown | + + + | Marital Status | | + + + | Anabaptist Affiliation | Unknown | + + + | Race | White | + + + | Ethnic Group | Not or | + + + Author + + + | Author | [facility] | + + + | Organization | [facility] | + + + | Address | Unknown | + + + | Phone | Unavailable | + + + Support + + +---------+ + | Name | Relationship | Address | Phone | + + +---------+ + | Alon Santiago | ECON | Unknown | | + + +---------+ + Care Team Providers + +------+ + | Care Manager Respiratory Name | Role | Phone | + [...] | | | Amara Chatman Mailcode: | [place], [place] | | | | | [address] Physician's | [address] | | | | | [address], [address]th Floor | [phone] | | | | | [place], [place] | | | | | | [address] | | | | | | [phone] | | | +--------+ + + + [...]
--- OUTSIDE RECORDS SUMMARY | ~2019-05-17 | XMS | Encounter Summary ---
Demographics + + + | Address | [address] | | | [place] [address] | + + + | Home Phone | | + + + | Preferred Language | Unknown | + + + | Marital Status | | + + + | Denominational Affiliation | 1077 | + + + | Race | Unknown | + + + | Ethnic Group | Unknown | + + + Author + + + | Author | [facility] | | | and Azana | + + + | Organization | [facility] | | [...] [place], [place] | | | | | [address] | | + + + + + | Helena Doherty | ECON | [place], | | | | | [place] [address] | | + + + + + Care Team Providers + +------+ + | Care Refuse Collector Name | Role | Phone | + [...] y Lumbar | [address] | [place], [place] | | | | | foraminal | [place] | [address] | | | | | stenosis | [place] | Phone: | | | | | Fibromyalgia | [address] | [phone] | | | | | | Phone: | Fax: | | | | | Degenerative | [phone] | [phone] | | | | | disc | Fax: | | | | | | disease, | [phone] | | | | | | lumbar [...] | n | al disc | PA[address]C [address] [facility] | | | | | disorders | [address] | [place], [place] | | | | | with | Ave | [address] Phone: | | | | | radiculopath | [place], | [phone] | | | | | y, lumbar | [place] | Fax: | | | | | region | [address] | [phone] | | | | | | Phone: | | | | | | | [phone] | | | | | | | Fax: | | | | | | | [phone] | | +--------+--------+ + + + + Encounter Details +--------+---------+ + + + | Date | Type | Department | Care Team | Description | +--------+---------+ + + + | 05/05/ | Office | [facility] | Dennys Pineda PA-C | Lumbar radiculopathy | | 2019 | Visit | PHYSIATRY [address] | [address] | (Primary Dx); | | | | [place], | [address] [place] | Lumbar foraminal | | | | [place] [address] | [place] [address] | stenosis; | | | | [phone] | [phone] | Fibromyalgia; | | | | | [...] disk, and irritate nerves. Date Last Reviewed: 11/23/201719995994-6372 [employer]. [address] [place] [address], [place] [address]. All righ ts reserved. This information is not intended as a substitute for professional medical care. Always follow your healthcare professional's instructions. documented in this encounter Progress Notes Sheree Carlson, Collections Rep - 05/05/2019 3:40 PM PSTFormatting of this note might b e different from the original. Dennys Pineda PA-C [address] [facility], [address] [place], [place] [address] FAX: CHIEF COMPLAINT: Chief Complaint Patient presents [...] for leg cramps). Med Name: [employer]ra[employer]x Foam [place] No current facility-administered medications for this visit. 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 The cranial nerves appear grossly intact. [...] 1. Lumbar radiculopathy Ambulatory referral to [facility] Lumbar Transforaminal 2. Lumbar foraminal stenosis Ambulatory referral to [facility] Lumbar Transforaminal 3. Fibromyalgia Ambulatory referral to [facility] Lumbar Transforaminal 4. DEGENERATIVE DISC DISEASE, LUMBAR SPINE Ambulatory referral to [facility] Lumbar Transforaminal 5. S/P lumbar fusion Ambulatory referral to [facility] Lumbar Transforaminal 6. 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 Unfortunately Ashly Santiago continues to have significant [...] | | | | | | [place] [address] | | | | | | [phone] | | | | | | | | | | | | [employer] [place] | | +--------+ + + + [...]
--- OUTSIDE RECORDS SUMMARY | ~2019-05-17 | XMS | Encounter Summary ---
Demographics + + + | Address | [address] | | | [place] [address] | + + + | Home Phone | | + + + | Preferred Language | Unknown | + + + | Marital Status | | + + + | Yarsani Affiliation | 1077 | + + + | Race | Unknown | + + + | Ethnic Group | Unknown | + + + Author + + + | Author | [facility] | | | and Azana | + + + | Organization | [facility] | | | and [...] [place], [place] | | | | | [address] | | + + + + + | Helena Doherty | ECON | [place], | | | | | [place] [address] | | + + + + + Care Team Providers + +------+ + | Care Convolute Tube Winder Name | Role | Phone | + +------+ + | Nathan Luevano DO | PCP | | + +------+ + Reason for Visit + + + | Reason | Comments | + + + | Neck Pain | Discuss surgical | + + + Encounter Details +--------+---------+ + + + | Date | Type | Department | Care Team | Description | +--------+---------+ + + + | 10/31/ | Office | [facility] | Dimitri Lucas | Cervical stenosis of | | 2019 | Visit | NEUROSURGERY [address] | MD Abbi [address] | spine (Primary Dx) | | | | [address] | [address] | | | | | [place] | [place] [address] | | | | | [address] | [phone] | | | | | [phone] | | | +--------+---------+ + + + [...] + + + | Blood Pressure | 134/68 | 10/31/2018 2:58 PM | | | | | PDT | | + + + + + | Pulse | 80 | 10/31/2018 2:58 PM | | | | | PDT [...] | 85 kg (187 lb 6.3 | 10/31/2018 2:58 PM | | | | oz) | PDT | | + + + + + | Height | 167.6 cm (5' 6") | 10/31/2018 2:58 PM | | | | | PDT | | + + + + + | Body Mass Index | 30.25 | 10/31/2018 2:58 PM | | | | | PDT | | + + + + + documented in this encounter Patient Instructions Patient Instructions Dominga Sims, Tobacco Wetter - 10/31/2018 2:30 PM PDTIt was a pleasure to see you today. Here is what we discussed. If you do choose neck surgery it would look something like this: - You may go home the same day or spend 1 night in the hospital. You will spend the first m onth lifting no more than 5lbs, and with no significant range of motion of your neck for 2-4 weeks. Do not do any lifting above your head. - We will want you to be up and walking very frequently. For the first month you will need to get up and move every 20-45 minutes while awake. You will gradually increase your walking until you are walking about 1 mile at 1 month. - You would wear a neck brace for at least the first month. You will be notified at the skyler e of your surgery how we will ask you to use your neck brace. - Generally you will not be driving for the first month after a fusion surgery. - You may need help with getting dressed and other household activities for the first month . - You will have some waxing and waning of symptoms. The pain will vary in intensity and ly y from day to day. As time moves on the frequency and intensity of the pain will slowly impr ove. - Please remember that we will only provide post operative medications for up to 84 days. Kyra smith work on weaning your pain medication as you heal. If you feel you may need pain medica tion after the 84 days, begin discussing this with your primary care provider at 8-10 weeks after surgery. Here are some resources that you can explore to learn more about pain and coping for optima l pain management. Surgical Pain Handout: https://www.[place]ly.[place].gov/Portals/1/Documents/9220/153418-HloysgdEcmuralfinda-GfiklztrFlwt.pdf Persistent Pain Toolkit for Patients and Families: Includes education on pain in general (multiple languages) and education on pain after inju ry or surgery. Relaxation videos practice techniques to quiet pain. https://[facility].[facility].org/our-services/p/ekokpcehgq-ihfdzdbxia-bvyh/jaoeerojeu-zvtt-fea lkit/oqtnycv-vvo-xleakwwn-toolkit/nyccde-ftob-mgwsogusg/ T documented in this encounter Progress Notes Dimitri Lucas MD - 10/31/2018 2:30 PM PDT Dimitri Lucas MD [address] [facility], [address] [place] [address] PHONE: FAX: NEUROSURGERY HISTORY AND PHYSICAL EXAMINATION CHIEF COMPLAINT: Chief Complaint Patient presents with Neck Pain Discuss surgical HISTORY OF PRESENT ILLNESS: The patient is a 78 y.o. female that had a L4-5 LAIF, L5-S1 TL IF for radiculopathy on 02/14/2017. She presents to discuss surgical options to treat her nec k pain. She describes that the pain radiates from the left side of the neck to the right shoulder, right shoulder blade, and down the right arm. She describes that when she lays down she will have tingling and numbness in bilateral arm, hand, and legs. She cannot relate a dermatoma l pattern to her radiating arm and hand numbness. She does notice however that her neck sharmila n will radiate to the posterior portion of her right arm to about the elbow. She cannot turn her head without having pain. She states that her pain is severe and debilitating. The patient has been working with physiatry and underwent epidural steroid injections in he r cervical spine with no improvement. She had trigger point injections also with no improve ment of her neck discomfort. She received trigger point injections in December and March 2018 and received no relief. She also had a fluoroscopically-guided C7-T1 interlaminar epidural s teroid injection, right of midline done and states that she did not feel any relie f after this treatment either. She is trying CBD oil to see if it would be helpful with her pain/discomfort.She notes that her first MRI for neck trouble was actually in 1986. PAST MEDICAL HISTORY: Past Medical History: Diagnosis [...] History: Procedure Laterality Date APPENDECTOMY 1960 Exploratory; [place] BLADDER SUSPENSION 2005 with Rectocele repair; Dr. Maranda Watkins BUNIONECTOMY 04/10/2007 Darlene's Bunion; Dr. Db Berrios CATARACT REMOVAL Bilateral 1996 [facility] CHOLECYSTECTOMY, LAPAROSCOPIC 07/11/2011 Dr. Marquez COLONOSCOPY 2003 [facility] COLONOSCOPY N/A 05/23/2017 Procedure: COLONOSCOPY; Surgeon: Joshua Hilliard MD; Location[facility] EGD AND COLONOSCOPY 07/06/2009 [facility] Dr. Jc EGD AND COLONOSCOPY 2009 ELECTROCARDIOGRAM 05/19/2009 Dr. Boss ELECTROCARDIOGRAM 08/12/2009 Dr. Radha Stafford; [facility] ENDOSCOPY 07/07/2011 [facility]; Dr. Marquez FINGER TRIGGER RELEASE Right 05/28/2014 Middle finger; Dr. Donta Agarwal FINGER TRIGGER RELEASE FOOT NEUROMA SURGERY Left 1998 HEEL SPUR SURGERY Right 1997 Dr. Berrios HYSTERECTOMY, TOTAL ABDOMINAL 1972 [place] LUMBAR SPINE SURGERY Anterior 02/14/2017 Procedure: L4-5 Lateral Anterior Interbody Fusion, L5-S1 Transforaminal Lumbar Interbody F usion; Surgeon: Agusto Pereira MD; Location: [facility] OR NASAL SEPTUM SURGERY 06/06/2016 Dr. Lindsey; [facility] PER[facility]GE 02/[address] Reid RECTOCELE REPAIR 2006 with bladder suspension; Dr. Reid and Dr. Watkins RETINAL DETACHMENT SURGERY 1997 Dr. Andrade ROTATOR CUFF REPAIR Right 04/20/2015 Ruptured and Tendon repair [facility] TONSILLECTOMY [address] [place], [place] CURRENT MEDICATIONS: Current Outpatient Medications Medication Sig Dispense Refill BIOTIN 5000 PO [...] Once a week. Multiple Vitamins-Minerals (PRESERVISION AREDS PO) Take by mouth. MYRBETRIQ 50 MG ER tablet Take 50 mg by mouth Daily. NALTREXONE HCL PO Take 5 mg by mouth Daily. Nutritional Supplements (ESTROVEN PO) Take 1 tablet by mouth Daily. Probiotic Product (ALIGN PO) Take 1 tablet by mouth Daily. raNITIdine (ZANTAC) 150 mg tablet Take 150 mg by mouth 2 times daily. trospium 20 MG tablet Take 20 mg by mouth 2 times daily. 1 No current facility-administered medications for this visit. [...] Alcohol abuse Sister Arthritis Sister Gout Sister Heart disease Sister Heart failure Sister No known problems Child No known problems Paternal Grandfather No known problems Paternal Grandmother No known problems Maternal Grandfather Heart defect Maternal Grandmother enlarged Heart disease Paternal Aunt Lung cancer Maternal Uncle Heart disease Maternal Aunt REVIEW OF SYSTEMS: GENERALLY: No fever, no night sweats, no anemia, + fatigue, no recent profound weight yanci nges. EYES: No eye problems, no impaired sight, + use of corrective lenses, no eye injury, no do uble vision, no transient blindness. EARS, NOSE, AND THROAT: No changes in taste or smell, + hearing difficulty, no ringing in the ears, no ear drainage, no ear injury, no dizziness, no voice changes, + difficulty swall owing, no significant snoring, no sleep apnea/CPAP, no sinus problems, no major dental work. NEUROLOGICALLY: Please see the review of systems discussed above in the history of present illness. In addition, the patient has numbness and pain of arms, numbness and pain of legs , awake with numbness/pain, change in walk, pain in neck, pain in back, memory loss, and con fusion. PSYCHIATRIC: + depression, + difficulty sleeping, + anxiety, no bipolar disorder. CARDIOVASCULAR: No heart attacks, no heart murmur, no heart fluttering, + chest pain, no a nkle swelling. LUNG DISEASE: No shortness of breath, no cough, no tuberculosis, no bloody cough, no asthm a, no emphysema/COPD. GASTROINTESTINAL: + bowel disease, no nausea or vomiting, no rectal bleeding, + constipati on/diarrhea, + fecal stool incontinence, no liver/gallbladder disease, + abdominal pain, no ulcers. KIDNEY DISEASE: + urinary frequency, no painful or difficult urination, + urinary incontin ence, + bladder problems, no impotence. ENDOCRINE: No diabetes, no thyroid disease, + osteopenia or osteoporosis, no breast draina ge. SKIN: No breast lumps, + skin disease or skin changes, no rashes/itches. HEMATOLOGIC/LYMPHATIC: No enlarged lymph nodes, no easy or unusual bleeding, + personal hi story of cancer. RHEUMATOLOGIC: + joint pain/arthritis, + rheumatoid arthritis. PHYSICAL EXAMINATION: Blood pressure 134/68, pulse 80, height 1.676 m (5' 6"), weight 85 kg (187 lb 6.3 oz), not currently . Body mass index is 30.25 kg/m. GENERAL: Ashly Santiago is in no acute distress with unlabored respirations. The patient does not appear uncomfortable throughout the exam [...] and without palpable masses. The patient is not o bese. EXTREMITIES: No cyanosis, clubbing, or edema. Distal pulses are palpable. NEUROLOGICAL EXAM: MENTAL STATUS: The patient is awake, alert, and oriented. She follows simple and complex commands. Her speech is fluent, she comprehends speech well, and she repeats well. She has no apparent deficits with short or chcf memory. CRANIAL NERVES: II: Acuity is intact. Mane are full to confrontation. III, IV, : The pupils are reactive. Extraocular movements are intact. No ptosis is note d. V: Facial sensation is intact and symmetric. VII: Facial movements are symmetric. VIII: Hearing is intact bilaterally. IX, X: The uvula and palate move appropriately. XI: Shrug is equal bilaterally. XII: Tongue protrusion is midline. SENSORY EXAM: Sensory exam shows no diminished sensation to light touch or pain throughout the upper extremities. MOTOR EXAM: (5 IS NORMAL) * Indicates pain limited MUSCLE/ MOVEMENT: RIGHT LEFT Deltoids 5 5 Biceps 5 5 Triceps 5 5 Wrist Flexion 5 5 Wrist Extension 5 5 Interossei 5 5 Institutional Cook Strength 5 5 Hip Flexion 5 5 Hip Extension 5 5 Knee Flexion 5 5 Knee Extension 5 5 Dorsiflexion 5 5 Extensor Hallicus Longus 5 5 Plantarflexion 5 5 REFLEXES: (2 OR 2+ IS NORMAL) REFLEX: RIGHT LEFT BICEPS 2 2 BRACHIORADIALIS 0 0 TRICEPS 1 1 PATELLAR 2 2 ACHILLES 1 2 DORANTES'S ABSENT ABSENT PLANTAR DOWNGOING DOWNGOING GAIT: Gait is antalgic. PERIPHERAL NERVE/MISC: The patient's arms were examined specifically for evidence of cubita l or carpal tunnel syndrome; she has no symptoms to suggest either and had no significant te nderness medial to the olecranon, over the carpal tunnel, with wrist flexion, or in attempts to elicit Tinel sign, which was absent. TEST AND RADIOGRAPHIC REVIEW: The patient's imaging was reviewed in detail with the patient today during the visit. The Cervical MRI from 05/01/2018 shows 2 level broad-based disc disease at C5-6 and C6-7 with mi ld narrowing of the AP canal diameter, and bilateral neural foraminal narrowing at C5-6 with left greater than right neural foraminal narrowing at C6-7. ASSESSMENT:Spondylitic cervical degenerative disc disease with mild canal and neural forami nal narrowing at C5-6 and C6-7, and a recent episode of incapacitating pain from neck to rig ht shoulder and arm. Past history of spinal fusion. NEUROSURGICAL DIAGNOSES:Same as above GENERAL DIAGNOSES: Past Medical History: Diagnosis Date Abdominal [...] (HCC) Trochanteric bursitis of both hips 11/28/2017 PLAN: Ashly Santiago presented today, and it was a pleasure seeing this patient and assessing he r neurologic problems. The patient has cervical spondylitic disc disease at C5-6 and C6-7, and has a recent severe recurrence of symptomatology that probably dates back at least 30 years. The patient has p rogressive symptoms despite non-operative measures. We had a lengthy discussion with the patient about her options for care including surgical and non-surgical options. In discussing the surgical options for the neck, we discussed in detail the patient's optio ns for a cervical fusion at C5-6 and C6-7 with allograft and internal fixation.We also discu ssed the possibility of minimally invasive laminectomies for decompression with foraminotomi es on the right at these 2 levels; I have pointed out to the patient and her that I mildly favor an anterior cervical approach as my experience suggests that it is somewhat mor e consistent in achieving neck pain control. The patient understands that in most instances [...] provide her with the best possible outcome. The patient would like to be considered for surgery as discussed and would like us to seek authorization and clearance for the operation. We will be proceeding with the back operatio n as discussed.. IDimitri MD 10/31/2018, personally performed the services described in this doc umentation, as scribed by Dominga Mckeon, Tobacco Wetter, in my presence, and it i s both accurate and complete. Portions of the HPI and plan were pulled forward from 07/03/19. Information has been added and updated during the office visit today 10/31/18. ELECTRONICALLY SIGNED BY: Dimitri Lucas MD, 10/31/2018 18:50 documented in this encounter Plan of Treatment +--------+ + + + + | Date | Type | Specialty | Care Team | Description | +--------+ + + + + | 05/19/ | Hospital | Radiology | Dennys Pineda PA-C | | | 2018 | Encounter | | [address] | | | | | | [facility] | | | | | | [place] [address] | | | | | | [phone] | | | | | | | | | | | | Warehouse Distribution AssociateNaomi | | +--------+ + + + + documented as of this encounter Visit Diagnoses + + | Diagnosis | + + | Cervical stenosis of spine - Primary Spinal stenosis in cervical region | + + documented in this encounter
--- OUTSIDE RECORDS SUMMARY | ~2019-05-17 | XMS | Encounter Summary ---
Demographics + + + | Address | [address] | | | [place] [address] | + + + | Home Phone | | + + + | Preferred Language | Unknown | + + + | Marital Status | | + + + | Mandaeism Affiliation | 1077 | + + + | Race | Unknown | + + + | Ethnic Group | Unknown | + + + Author + + + | Author | [facility] | | | and Azana | + + + | Organization | [facility] | | | [...] [place], [place] | | | | | [address] | | + + + + + | Helena Doherty | ECON | [place], | | | | | [place] [address] | | + + + + + Care Team Providers + +------+ + | Care Document Processing Specialist Name | Role | Phone | [...] left hip | [address] | [place] | | | | | Trochanteric | [address] | [address] Phone: | | | | | bursitis, | [place], | [phone] | | | | | right hip | [place] | Fax: | | | | | Fibromyalgia | [address] | [phone] | | | | | Procedures | Phone: | | | | | | PT Noel w/ | [phone] | | | | | | Aiyana | Fax: | | | | | | [place] | [phone] | | +--------+--------+ + + + + Encounter Details +--------+---------+ + + + | Date | Type | Department | Care Team | Description | +--------+---------+ + + + | 05/27/ | Office | [facility] | Schmidtgall, | Fibromyalgia | | 2018 | Visit | [facility] | Sophia Kingsley PA-C | (Primary Dx); Neck | | | | OP [address] | [address] | pain; Trochanteric | | | | [place] | [place], [place] | bursitis of both | | | | [address] | [address] | hips | | | | [phone] | [phone] | | | | | | | | | | | | Aiyana Fish S, PT | | | | | | [address] | | | | | | [place] | | | | | | [address] | | | | | | | [...] encounter Progress Notes Aiyana Fish, PT - 05/27/2018 1:00 PM PSTFormatting of this note might be different fro m the original. [facility] PT OP [address] [place] [address] Physical Therapy Daily Treatment Note Date: 05/27/2018 Patient Information Patient Name: Ashly Santiago Date of : 1940 Age: 78 y.o. Encounter Diagnoses Code Name Primary? M79.7 Fibromyalgia Yes M54.2 Neck pain M70.61, M70.62 Trochanteric bursitis of both hips Date of Onset: 04/10/2018 Referring Provider: Sophia Bush PA-C Rehab Precautions Office Visit from 04/17/[address] [facility] OP Rehab Precautions Precautions None Rehab Learning Style Office Visit from 04/17/[address] [facility] OP Office Visit fro m 10/19/[address] [facility] PT OP Learning Style Patient's Optimum Learning Style listening, reading, observation, performance of task lis tening, reading, observation, performance of task Start Time: 1300 Stop time: 1405 Duration: 65 minutes Timed Treatment Codes: 65 minutes # of PT Visits to Date: 5 Subjective: Pt reports that she is avoiding things that hurt her neck and her neck has been feeling bet ter. She has been doing extra movement related to Car Throttle decorations- putting up tree an d lifting/carrying boxes. Pain Assessment: Pain Rating Pre Assessment: 4 Pain Rating Post Assessment: 3 Location: low back Objective: Education: Persistent pain education with respect to "Hurt vs. Harm" And "Do more-Hurt mor e" normalizing pain to degree that fits the context. Exercise: Sit to stand using proper mechanics and "efficiency". Looking to blind spot whi le driving using "whole body" movement. She will add 1 rep per day onto her upper body band exercises with theraband Manual Treatment: Myofascial release and positional release therapy to multiple areas: Dur al tube mobilization, Iliopsoas mm bilat., mid and upper thoracic spine, and cervical spine with release of the left scalenes and mobilization of the L 1st rib. Assessment: Good response to treatment. Fascial release resulted in improved mobility in the cervical spine especially LR and lower pain level reported to be 3/10 following the session. Plan: Continue with manual therapy and development of home program. Pt will practice sit to tati leigh Add pelvic clock next visit. Electronically signed by: Aiyana Fish PT, 05/27/2018 14:19 Patient Name: Ashly Santiago/: 1940/ documented in [...] | | | | | [address] [facility] | | | | | | [place] [address] | | | | | | [phone] | | | | | | | | | | | | Sales And Marketing RepresentativeNaomi | | +--------+ + + + [...]
--- OUTSIDE RECORDS SUMMARY | ~2019-05-17 | XMS | Encounter Summary ---
Demographics + + + | Address | [address] | | | [place] [address] | + + + | Home Phone | | + + + | Preferred Language | Unknown | + + + | Marital Status | | + + + | Latter-Day Affiliation | 1077 | + + + | Race | Unknown | + + + | Ethnic Group | Unknown | + + + Author + + + | Author | [facility] | | | and Azana | + + + | Organization | [facility] | [...] [place], [place] | | | | | [address] | | + + + + + | Helena Doherty | ECON | [place], | | | | | [place] [address] | | + + + + + Care Team Providers + +------+ + | Care Ems Educator Name | Role | Phone | + +------+ + PCP | Unavailable | + +------+ + Encounter Details +--------+ + + + + | Date | Type | Department | Care Team | Description | +--------+ + + + + | 05/23/ | Hospital | [facility] | Shahzad Andrade, | Recent retinal | | 1997 - | Encounter | [facility] [address] | [address] | detachment, partial, | | | | [address] | [place], [place] | with multiple | | 05/25/ | | [place], [place] | [address] | defects | | 1997 | | [address] | | | | | | [phone] | | | +--------+ + + + [...] | | | | | [place] [address] | | | | | | [phone] | | | | | | | | | | | | Language Arts TeacherNaomi | | +--------+ + + + + documented as of this encounter Visit Diagnoses + + | Diagnosis | + + | Recent retinal detachment, partial, with multiple defects | + + documented in this encounter"
--- OUTSIDE RECORDS SUMMARY | ~2019-05-17 | XMS | Encounter Summary ---
Demographics + + + | Address | [address] | | | [place] [address] | + + + | Home Phone [...] + + | Author | [facility] | + + + | Organization | [facility] | + + + | Address | Unknown | + + + | Phone | Unavailable | + + + Support + + +---------+ + | Name | Relationship | Address | Phone | + + +---------+ + | Alon Santiago | ECON | Unknown | | + + +---------+ + Care Team Providers + +------+ + | Care Fitness Worker Name | Role | Phone | + +------+ + | Thee Boss MD | PCP | | + +------+ + Encounter Details +--------+ + + + + | Date | Type | Department | Care Team | Description | +--------+ + + + + | 10/03/ | Document-Sc | UNKNOWN DEPARTMENT | Unknown . | | | 2013 | anned | [address] | | | | | | [address] | | | | | | [place], [place] | | | | | | [address] | | | +--------+ + + + [...]
--- OUTSIDE RECORDS SUMMARY | ~2019-05-17 | XMS | Encounter Summary ---
Demographics + + + | Address | [address] [facility] | | | [place] [address] | + + + | Home Phone | | + + + | Preferred Language | Unknown | + + + | Marital Status | | + + + | Lutheran Affiliation | Unknown | + + + [...] Team Providers + +------+ + | Care Group Controller Name | Role | Phone | + +------+ + | Nathan Luevano | PCP | | + +------+ + Reason for Visit + + + | Reason | Comments | + + + | Dyspareunia | | + + + Encounter Details +--------+---------+ + + + | Date | Type | Department | Care Team | Description | +--------+---------+ + + + | 10/31/ | Office | [facility] | Ness Rae | Dyspareunia; | | 2006 | Visit | [facility] | MD Kemi [address] | Urge Incontinence | | | | [address]ancy [address] | [address] | | | | | [address] | [place], [place] | | | | | [place] | [address] | | | | | [place], [place] | [phone] | | | | | [address] | | | | | | [phone] | | | +--------+---------+ + + + [...] + + + | Blood Pressure | 176/100 | 10/31/2006 2:18 PM | | | | | PDT [...] Weight | 88 kg (194 lb) | 10/31/2006 2:18 PM | | | | | PDT | | + + + + + | Height | 167.6 cm (5' 6") | 10/31/2006 2:18 PM | | | | | PDT | | + + + + + | Body Mass Index | 31.31 | 10/31/2006 2:18 PM | | | | | PDT | | + + + + + documented in this encounter Progress Notes Ness Rae - 10/31/2006 5:24 PM PDTPt seen and examined with Dr Moreira and carlos manuel sanabria with her note below following my editsElectronically signed by Ness Rae at 02/2007 5:24 PM PDTCathy Moreira - 10/31/2006 4:00 PM PDTMs. 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 Sx are described as having severe urgency. Unclear if there were NICKO sx at that ti me as well. Was on Detrol prior to her surgery but following the procedure Detrol was no lo nger helpful therefore started on Vesicare which helps but does not resolve her urinary leak age. She does not feel that the surgery was helpful for her bladder complaints. Was discha rged from the hospital without a catheter. Post op attempted to have intercourse but was ve ry painful. At this point, intercourse is practically impossible. Her is unable to completely enter; he feels that it is too tight; primarily pain is upon entry , not on deep penetration. Has a difficult time with applicator for premarin cream. Feels like there is a ledge or a curve that has to be manuevered. REVIEW OF SYSTEMS GENERAL: None ENT: None EYES: None MUSCULOSKELETAL: None GI: None CV: None PSYCH: None ENDOCRINE: None HEMATOLOGIC: None PHYSICAL EXAM GENERAL: Healthy appearing, no acute distress NECK: No thyromegaly, no masses LYMPH: No supraclavicular or inguinal lymphadenopathy RESPIRATORY: Breathing without difficulty CARDIOVASCULAR: No pedal edema ABDOMEN: No HSM, mass, or hernias Well-healed low vertical incision Well-healed low transverse incision SKIN: erythematous vulva NEUROLOGIC GAIT: Normal SACRAL SENSATION: Grossly Intact ORIENTATION: Oriented to time, place, and person AFFECT: Normal GENERAL PELVIC EXAM EXTERNAL GENITALIA: Normal estrogen effect URETHRA: Normal BLADDER: Non tender to palpation BLADDER NECK MOBILITY: Visibly slightly mobile VAGINA Normal diameter introitus narrowed by skin bridge at fourchette that connects into labia minora Also central apical vagina is shorter than 2 cuff corners but pt does not believe that they have ever reached this area with intercourse to know if it is painful ANTERIOR VAGINAL RUGAE Normal POSTERIOR VAGINAL RUGAE Normal CERVIX Surgically absent UTERUS Surgically absent ADNEXA Surgically absent ANUS & PERINEUM: Normal sphincter tone PELVIC FLOOR EXAMS SUPINE PELVIC ORGAN PROLAPSE QUANTIFICATION (POPQ) Aa: -3 Ba: -3 C: -8 gh: 3 pb: 4 tvl: 8 Ap: -3 Bp: -3 Character of Anterior Vaginal Defect None Character of Posterior Vaginal Defect None RIGHT PELVIC FLOOR MUSCLE TENDERNESS?: Absent LEFT PELVIC FLOOR MUSCLE TENDERNESS?: Absent ASSESSMENT vulvar skin bridge causing dyspareunia PLAN release of vaginal skin bridge removal of mole to be done in [facility] procedure room after she returns from [facility] signed by Ness Rae at 10/31/2006 5:29 PM PDTdocumented in this encounter Plan of Treatment Not on filedocumented as of this encounter Visit Diagnoses + + | Diagnosis | + + | Dyspareunia | + + | Urge incontinence | + + documented in this encounter
--- OUTSIDE RECORDS SUMMARY | ~2019-05-17 | XMS | Encounter Summary ---
Demographics + + + | Address | [address] [facility] | | | [place] [address] | + + + | Home Phone | | + + + | Preferred Language | Unknown | + + + | Marital Status | | + + + | Quaker Affiliation | Unknown | + + + [...] Team Providers + +------+ + | Care Cylinder Die Machine Operator Name | Role | Phone | + +------+ + | Thee Boss MD | PCP | | + +------+ + Reason for Visit + + + | Reason | Comments | + + + | Refill Request | | + + + Encounter Details +--------+--------+ + + + | Date | Type | Department | Care Team | Description | +--------+--------+ + + + | 02/24/ | Refill | Rheumatology at | Tavia Zuniga | Refill Request | | 2013 | | KALA Fox [address] | | | | | [address] | [address] | | | | | Amara Chatman Mailcode: | [place], [place] | | | | | [address] [facility] | [address] | | | | | [place], | [phone] | | | | | [place] [address] | | | | | | [phone] | | | +--------+--------+ + + + [...]
--- OUTSIDE RECORDS SUMMARY | ~2019-05-17 | XMS | Encounter Summary ---
Demographics + + + | Address | [address] [facility] | | | [place] [address] | + + + | Home Phone [...] Providers + +------+ + | Care Manager Surgical Name | Role | Phone | + [...] | | | Amara Chatman Mailcode: | [place], [place] | | | | | [address] | [address] | | | | | [place], | [phone] | | | | | [place] [address] | | | | | | [phone] | | | +--------+--------+ + + + [...]
--- OUTSIDE RECORDS SUMMARY | ~2019-05-17 | XMS | Encounter Summary ---
Demographics + + + | Address | [address] [facility] [facility] | | | [place] [address] | + + + | Home Phone [...] Providers + +------+ + | Care Nurse Ortho Name | Role | Phone | + +------+ + | Thee Boss MD | PCP | | + +------+ + Encounter Details +--------+ + + + + | Date | Type | Department | Care Team | Description | +--------+ + + + + | 03/03/ | Cellophane Bag Machine Operator | Rheumatology at | Rosas Lucia MD | | | 2013 | | Palmira Sen | [address] [facility] | | | | | [address] | [address] [place], | | | | | Amara Chatman Mailcode: | [place] [address] | | | | | [address] | [phone] | | | | | Francy, [facility] Floor | | | | | | [place], [place] | | | | | | [address] | | | | | | [phone] | | | +--------+ + + + [...]
--- OUTSIDE RECORDS SUMMARY | ~2019-05-17 | XMS | Encounter Summary ---
Demographics + + + | Address | [address] [facility] | | | [place] [address] | + + + | Home Phone [...] Author | [facility] | | | and Azana | + + + | Organization | [facility] | | [...] [place], [place] | | | | | [address] | | + + + + + | Helena Doherty | ECON | [place], | | | | | [place] [address] | | + + + + + Care Team Providers + +------+ + | Care Director Hydrogen Storage Engineering Name | Role | Phone | + [...] | | | | | [address] | [place] | | | | | [place] | [address] | | | | | [address] | | | | | | [phone] | Layton Kruger | | | | | | MD Kyra [address] | | | | | | [place] | | | | | | [address] | | | | | | [phone] | | | | | | | [...] | | | | | | [place] [address] | | | | | | [phone] | | | | | | | | | | | | Automated Process Operator, [employer] | | +--------+ + + + + documented as of this encounter Visit Diagnoses Not on filedocumented in this encounter"
--- OUTSIDE RECORDS SUMMARY | ~2019-05-17 | XMS | Encounter Summary ---
Demographics + + + | Address | [address] [facility] | | | [place] [address] | + + + | Home Phone | | + + + | Preferred Language | Unknown | + + + | Marital Status | | + + + | Pentecostal Affiliation | Unknown | + + + [...] Team Providers + +------+ + | Care Sammying Machine Operator Name | Role | Phone | + +------+ + | Thee Boss MD | PCP | | + +------+ + Encounter Details +--------+------+ + + + | Date | Type | Department | Care Team | Description | +--------+------+ + + + | 04/07/ | Lab | Laboratory, | | Elevated TSH; RLS | | 2012 | | Specimen Collection | | (restless legs | | | | at [facility] Floor | | syndrome); RA | | | | [address] | | (rheumatoid | | | | [place], | | arthritis) ([facility]); | | | | [place] [address] | | Macrocytosis without | | | | [phone] | | anemia | +--------+------+ + + + Social History [...] | + +--------+ + + + | ANTI NUCLEAR AB | Routin | 04/07/2013 | RA (rheumatoid | Results for this | | SCREEN, SERUM | e | 4:36 PM | arthritis) ([facility]) | procedure are in the | | | | PDT | | results section. | + +--------+ + + + | GRAEME ANTIBODIES | Routin | 04/07/2013 | RA (rheumatoid | Results for this | | IDENTIFICATION, | e | 4:36 PM | arthritis) ([facility]) | procedure are in the | | SERUM | | PDT | | results section. | + +--------+ + + + | C-REACTIVE PROTEIN | Routin | 04/07/2013 | RA (rheumatoid | Results for this | | | e | 4:36 PM | arthritis) ([facility]) | procedure are in the | | | | PDT | | results section. | + +--------+ + + + | SEDIMENTATION RATE | Routin | 04/07/2013 | RA (rheumatoid | Results for this | | | e | 4:36 PM | arthritis) (HCC) | procedure are in the | | | | PDT | | results section. | + +--------+ + + + | FERRITIN | Routin | 04/07/2013 | RLS (restless legs | Results for this | | | e | 4:36 PM | syndrome) | procedure are in the | | | | PDT | | results section. | + +--------+ + + + | TSH | Routin | 04/07/2013 | Elevated TSH | Results for this | | | e | 4:36 PM | | procedure are in the | | | | PDT | | results section. | + +--------+ + + + | FOLATE, SERUM | Routin | 04/07/2013 | Macrocytosis | Results for this | | | e | 4:36 PM | without anemia | procedure are in the | | | | PDT | | results section. | + +--------+ + + + | VITAMIN B-12 | Routin | 04/07/2013 | Macrocytosis | Results for this | | | e | 4:36 PM | without anemia | procedure are in the | | | | PDT | | results section. | + +--------+ + + + | MAGNESIUM, PLASMA | Routin | 04/07/2013 | RLS (restless legs | Results for this | | | e | 4:36 PM | syndrome) | procedure are in the | | | | PDT | | results section. | + +--------+ + + + | IRON AND TIBC, SERUM | Routin | 04/07/2013 | RLS (restless legs | Results for this | | | e | 4:36 PM | syndrome) | procedure are in the | | | | PDT | | results section. | + +--------+ + + + | CK, PLASMA | Routin | 04/07/2013 | RA (rheumatoid | Results for this | | | e | 4:36 PM | arthritis) (HCC) | procedure are in the | | | | PDT | | results section. | + +--------+ + + + documented in this encounter Results FOLATE, SERUM (04/07/2013 4:36 PM PDT) + +-------+ + + + | Component | Value | Ref Range | Performed | Pathologist | | | | | At | Signature | + +-------+ + + + | FOLATE,SERU | 17.1 | >5.8 ng/mL | [facility] | | [...] 4.0 - 5.8 ng/mL Deficient: <4.0 ng/mL Reference Range Change | LABORATORY | | effective 11/28/12 | SERVICES, | | | SPECIAL IMM + | | | COAG | + + + + + + + + | Performing | Address | City/State/Zipcode | Phone Number | | Organization | | | | + + + + + | [facility] | [address] | [place] [address] | | | SERVICES, SPECIAL | [address] | | | | IMM + COAG | | | | + + + + + VITAMIN B-12, SERUM (04/07/2013 4:36 PM PDT) + +-------+ + + + | Component | Value | Ref Range | Performed | Pathologist | | | | | At | Signature | + +-------+ + + + | VITAMIN B12 | 599 | 190 - 910 pg/ml | [facility] [...] At | + + + | New reference range and methodology effective 08/05/12. | [facility] | | | LABORATORY | | | SERVICES, | | | SPECIAL IMM + | | | COAG | + + + + + + + + | Performing | Address | City/State/Zipcode | Phone Number | | Organization | | | | + + + + + | [facility] | [address] | [place] [address] | | | SERVICES, SPECIAL | [address] | | | | IMM + COAG | | | | + + + + + SEDIMENTATION RATE (04/07/2013 4:36 PM PDT) + +-------+ + + + | Component | Value | Ref Range | Performed | Pathologist | | | | | At | Signature | + +-------+ + + + | SEDIMENTATI | 25 | 0 - 30 mm/hr | [facility] [...] | + + + + + | [facility] | [address] | [place] [address] | | | SERVICES, CORE | [address] | | | + + + + + C-REACT PRTN (FOR INFLAMMATION) (04/07/2013 4:36 PM PDT) + +-------+ + + + [...] + | [facility] | [address] | [place] [address] | | | [place] | | | | + + + + + CK, PLASMA (04/07/2013 4:36 PM PDT) + +-------+ + + + | Component | Value | Ref Range | Performed | Pathologist | | | | | At | Signature | + +-------+ + + + | CK | 129 | 38 - 234 U/L | [facility] [...] [facility] | [address] | [place] [address] | | | SERVICES, CORE | [address] | | | + + + + + ANTI NUCLEAR AB SCREEN, SERUM (04/07/2013 4:36 PM PDT) + + + + + + | Component | Value | Ref Range | Performed | Pathologist | | | | | At | Signature | + + + + + + | EZEQUIEL SCREEN | Negative | Negative | [facility] | | | ON HEP | | | AIRPORT - | | | 2,SERUM | | | [place] | | + + + + + + + + | Specimen | + + | Blood - Blood | + + + + + + + | Performing | Address | City/State/Zipcode | Phone Number | | Organization | | | | + + + + + | [facility] | [address] | [place] [address] | | | [facility] | | | | + + + + + GRAEME ANTIBODIES IDENTIFICATION, SERUM (04/07/2013 4:36 PM PDT) + + + + + + | Component | Value | Ref Range | Performed | Pathologist | | | | | At | Signature | + + + + + + | CENTROMERE | Negative | Negative | [facility] | | | AB | | | LABORATORY | | | | | | SERVICES, | | | | | | SPECIAL IMM | | | | | | + COAG | | + + + + + + | GORGE-1 AB | Negative | Negative | [facility] | | | | | | LABORATORY | | | | | | SERVICES, | | | | | | SPECIAL IMM | | | | | | + COAG | | + + + + + + | HEART NURSE AB | Negative | Negative | [facility] | | | | | | LABORATORY | | | | | | SERVICES, | | | | | | SPECIAL IMM | | | | | | + COAG | | + + + + + + | SCL-70 AB | Negative | Negative | [facility] | | | | | | LABORATORY | | | | | | SERVICES, | | | | | | SPECIAL IMM | | | | | | + COAG | | + + + + + + | SM AB | Negative | Negative | [facility] | | | | | | LABORATORY | | | | | | SERVICES, | | | | | | SPECIAL IMM | | | | | | + COAG | | + + + + + + | SSA AB | Negative | Negative | [facility] | | | | | | LABORATORY | | | | | | SERVICES, | | | | | | SPECIAL IMM | | | | | | + COAG | | + + + + + + | SSB AB | Negative | Negative | [facility] | | | | | | LABORATORY | | | | | | SERVICES, | | | | | | SPECIAL IMM | | | | | | + COAG | | + + + + + + + + | Specimen | + + | Blood - Blood | + + + + + | Narrative | Performed At | + + + | Test Unit Negative Equivocal | [facility] | | Positive Crystal Centromere AB U/ml <7.0 7.0-10 | LABORATORY | | >10 Crystal Gorge-1 AB U/ml <7.0 7.0-10 | SERVICES, | | >10 Crystal HEART NURSE AB U/ml <5.0 5.0-10 | SPECIAL IMM + | | >10 Crystal Scl-70 U/ml <7.0 7.0-10 | COAG | | >10 Crystal Sm AB U/ml <5.0 | | | 5.0-10 >10 Crystal SSA AB U/ml <7.0 | | | 7.0-10 >10 Crystal SSB AB U/ml <7.0 | | | 7.0-10 >10 Test methodology and reference ranges have | | | changed. Correlate test interpretation with clinical symptoms. | | + + + + + + + + | Performing | Address | City/State/Zipcode | Phone Number | | Organization | | | | + + + + + | [facility] | [address] | [place] [address] | | | SERVICES, SPECIAL | [address] | | | | IMM + COAG | | | | + + + + + IRON AND TIBC, SERUM (04/07/2013 4:36 PM PDT) + +-------+ + + + | Component | Value | Ref Range | Performed | Pathologist | | | | | At | Signature | + +-------+ + + + | IRON | 108 | 30 - 160 ug/dL | [facility] | | | | | | LABORATORY | | | | | | SERVICES, | | | | | | CORE | | + +-------+ + + + | IRON BIND | 327 | 240 - 450 ug/dL | [facility] | | | CAP | | | LABORATORY | | | | | | SERVICES, | | | | | | CORE | | + +-------+ + + + | % | 33 | 20 - 50 % | [facility] | | | SATURATION | | | LABORATORY | | | TRANSFERRIN | | | SERVICES, | | | , | | | CORE | | + +-------+ + + + + + | Specimen | + + | Blood - Blood | + + + + + + + | Performing | Address | City/State/Zipcode | Phone Number | | Organization | | | | + + + + + | [facility] | [address] | [place] [address] | | | SERVICES, CORE | [address] | | | + + + + + FERRITIN, SERUM (04/07/2013 4:36 PM PDT) + + + + + + | Component | Value | Ref Range | Performed | Pathologist | | | | | At | Signature | + + + + + + | FERRITIN | 88Comment: Male and | 50 - 200 ng/mL | [facility] | | | | Female >18 years: | | LABORATORY | | | | <20 ng/mL: | | SERVICES, | | | | Consistant with iron | | CORE | | | | deficiency 21-50 | | | | | | ng/mL: Possible | | | | | | iron deficiency 51-99 | | | | | | ng/mL: Iron | | | | | | deficiency unlikely | | | | | | unless inflammation | | | | | | present or | | | | | | patient | | | | | | >65 years of age | | | | | | 100-200 ng/mL: | | | | | | Normal, not consistent | | | | | | with iron deficiency | | | | | | >200 ng/mL: If | | | | | | transferrin saturation | | | | | | >45%, consider | | | | | | hemochromatosis | | | | + + + + + + + + | Specimen | + + | Blood - Blood | + + + + + | Narrative | Performed At | + + + | New reporting units and pediatric reference ranges effective | [facility] | | 11/13/2012. | LABORATORY | | | [address] | + + + + + + + + | Performing | Address | City/State/Zipcode | Phone Number | | Organization | | | | + + + + + | [facility] | [address] | [place] [address] | | | [address] | [address] | | | + + + + + MAGNESIUM, PLASMA (04/07/2013 4:36 PM PDT) + +-------+ + + + | Component | Value | Ref Range | Performed | Pathologist | | | | | At | Signature | + +-------+ + + + | MAGNESIUM,P | 1.8 | 1.8 - 2.5 mg/dL | [facility] | | | LASMA | | | LABORATORY | | | [...] [facility] | [address] | [place] [address] | | | SERVICES, SAMIR | [address] | | | + + + + + TSH (04/07/2013 4:36 PM PDT) + + + + + + | Component | Value | Ref Range | Performed | Pathologist | | | | | At | Signature | + + + + + + | TSH | 2.98Comment: Normal TSH | 0.34 - 5.60 | [facility] | | | | value in : | mcIU/mL | [facility] - | | | | 0.5-2.5. uIU/ml | | [facility] | | + + + + + + + + | Specimen | + + | Blood - Blood | + + + + + + + | Performing | Address | City/State/Zipcode | Phone Number | | Organization | | | | + + + + + | [facility] | [address] | [place] [address] | | | [place] | | | | + + + + + documented in this encounter Visit Diagnoses + + | Diagnosis | + + | Elevated TSH Other abnormal blood chemistry | + + | RLS (restless legs syndrome) Restless legs syndrome (RLS) | + + | RA (rheumatoid arthritis) (HCC) Rheumatoid arthritis | + + | Macrocytosis without anemia Other specified diseases of blood and blood-forming | | organs | + + documented in this encounter"
--- OUTSIDE RECORDS SUMMARY | ~2019-05-17 | XMS | Encounter Summary ---
Demographics + + + | Address | [address] | | | [place] [address] | + + + | Home Phone | | + + + | Preferred Language | Unknown | + + + | Marital Status | | + + + | Anabaptist Affiliation | [id number] | + + + | Race | Unknown | + + + | Ethnic Group | Unknown | + + + Author + + + | Author | [facility] | | | and Azana | + + + | Organization | [facility] | | | [...] [place], [place] | | | | | [address] | | + + + + + | Helena Dhoerty | ECON | [place], | | | | | [place] [address] | | + + + + + Care Team Providers + +------+ + | Care Electrical Logger Name | Role | Phone | + [...] | Degenerative | [address] | [place], [place] | | | | | disc | [place] | [address] Phone: | | | | | disease, | [address] | [phone] | | | | | lumbar | Phone: | Fax: | | | | | Lumbar | [phone] | [phone] | | | | | foraminal | Fax: | | | | | | stenosis | [phone] | | | | | | Fibromyalgia [...] + + | 12/05/ | Office | [facility] | [place], | Fibromyalgia; | | 2016 | Visit | [facility] | FABIAN Castillo [address] | Sacroiliitis (HCC) | | | | OP [address] | [facility], | | | | | [place] | [place] [address] | | | | | [address] | [phone] | | | | | [phone] | | | | | | | Aiyana Fish S, PT | | | | | | [address] | | | | | | [place] | | | | | | [phone] | | | | | | | [...] be different fro m the original. [facility] TH[facility] PT OP [address] [place] [address] Physical Therapy Daily Treatment Note Date: 12/05/2016 Patient Information Patient Name: Ashly Santiago Date of : 1940 Age: 76 y.o. Encounter Diagnoses Code Name Primary? M79.7 Fibromyalgia M46.1 Sacroiliitis (HCC) Date of Onset: 06/08/2016 Referring Provider: Anna Aponte PA-C Rehab Precautions Flowsheet Row Office Visit from 10/19/2016 in [facility] PT OP Rehab Precautions Precautions None Rehab Learning Style Flowsheet Row Office Visit from 10/19/2016 in [facility] PT OP Learning Style [...] 2018 | Encounter | | [address] [facility] | | | | | | [address] [facility] | | | | | | [place] [address] | | | | | | [phone] | | | | | | | | | | | | Counseling DirectorNaomi | | +--------+ + + + + documented as of this encounter Visit Diagnoses + + | Diagnosis | + + | Fibromyalgia Mylagia and myositis, unspecified | + + | Sacroiliitis (HCC) Sacroiliitis, not elsewhere classified | + + documented in this encounter"
--- OUTSIDE RECORDS SUMMARY | ~2019-05-17 | XMS | Encounter Summary ---
Demographics + + + | Address | [address] [facility] | | | [place] [address] | + + + | Home Phone | | + + + | Preferred Language | Unknown | + + + | Marital Status | | + + + | Shinto Affiliation | Unknown | + + + [...] Team Providers + +------+ + | Care Top Steep Tender Name | Role | Phone | + +------+ + | Nathan Luevano DO | PCP | | + +------+ + Encounter Details +--------+ + + + + | Date | Type | Department | Care Team | Description | +--------+ + + + + | 04/09/ | MyChart | [facility] | Agusto Pereira MD | Authorization of | | 2019 | Encounter | [facility] | [address] | Services notice from | | | | [address] | [address] | [employer] 03/21/19 | | | | [address] | [place] [address] | | | | | [place], [place] | [phone] | | | | | [address] | | | | | | [phone] | | | +--------+ + + + [...]
--- OUTSIDE RECORDS SUMMARY | ~2019-05-17 | XMS | Encounter Summary ---
Demographics + + + | Address | [address] [facility] | | | [place] [address] | + + + | Home Phone | | + + + | Preferred Language | Unknown | + + + | Marital Status | | + + + | Roman Catholic Affiliation | Unknown | + + + [...] Team Providers + +------+ + | Care Cotton Baler Name | Role | Phone | + [...] | 2014 | | Physicians [place] | [address] [facility] | ([place]) | | | | [address] [facility] | [address], | | | | | [address] Chatman Mailcode: | [place] [address] | | | | | [address] Physician's | [phone] | | | | | [place], 4th Floor | | | | | | [place], [place] | | | | | | [address] | | | | | | [phone] | | | +--------+--------+ + + + [...]
--- OUTSIDE RECORDS SUMMARY | ~2019-05-17 | XMS | Encounter Summary ---
Demographics + + + | Address | [address] | | | [place] [address] | + + + | Home Phone | | + + + | Preferred Language | Unknown | + + + | Marital Status | | + + + | Zoroastrian Affiliation | Unknown | + + + | Race | White | + + + | Ethnic Group | Not or | + + + Author + + + | Author | [facility] | + + + | Organization | [facility] | + + + | Address | Unknown | + + + | Phone | Unavailable | + + + Support + + +---------+ + | Name | Relationship | Address | Phone | + + +---------+ + | Alon Santiago | ECON | Unknown | | + + +---------+ + Care Team Providers + +------+ + | Care Hand Picker Name | Role | Phone | + +------+ + | Thee Boss MD | PCP | | + +------+ + Reason for Visit + + + | Reason | Comments | + + + | Follow-up visit | | + + + Consultation (Routine) +--------+--------+ + + + + | [...] Barry | | | | | 4.0) ([facility]) | [place] [address] | [address] | | | | | Myalgia and | [address] | [address] [place], | | | | | myositis, | [place], | [place] | | | | | unspecified | [place] [address] | [address] | | | | | | Phone: | Phone: | | | | | | [phone] | [phone] | | | | | | Fax: | Fax: | | | | | | [phone] | [phone] | +--------+--------+ + + + + Encounter Details +--------+---------+ + + + | Date | Type | Department | Care Team | Description | +--------+---------+ + + + | 12/22/ | Office | Rheumatology at | Rosas Lucia MD | Rheumatoid arthritis | | 2013 | Visit | Physicians Francy | [address] [facility] | (Primary Dx) | | | | [address] | [address] [place], | | | | | Celina Chatman Mailcode: | [place] [address] | | | | | [address]09 Physician's | [phone] | | | | | Francy, [facility] Floor | | | | | | [place], [place] | | | | | | [address] | | | | | | [phone] | | | +--------+---------+ + + + [...] + + + | Blood Pressure | 120/78 | 12/22/2013 2:39 PM | | | | | PDT | | + + + + + | Pulse | 88 | 12/22/2013 2:39 PM | | | | | PDT [...] + + + + | Weight | 88.5 kg (195 lb) | 12/22/2013 2:39 PM | | | | | PDT | | + + + + + | Height | - | - | | + + + + + | Body Mass Index | 32.45 | 04/07/2013 2:16 PM | | | | | PDT | | + + + + + documented in this encounter Progress Notes Rosas Lucia MD - 12/22/2013 2:40 PM PDTFormatting of this note might be different from t he original. RHEUMATOLOGY NEW PATIENT CONSULT This consultation was requested by: Tavia Linda, KALA [address] [place] [facility] [place] [address] fax: [phone] CC: Chief Complaint Patient presents with Follow-up [...] labs but Dr Shelton, who was her Pattern Marker, was not sure if the symptoms were from RA. She has been taken methotrexate and Plaquenil. She is not sure if that has helped and feels that the only way to be sure will be to discontinue it. Her neck is not hurting much now. The knees are also doing well. The neck is stiff all the time but not painful. She does not feel any spasm around the neck. It does not hurt to move it in all directions. There are no radicular pain and the pain is more like a dull ache. The knee has a torn meniscus. These became better with steroid shots. The pain is worse when sh e goes up and down. Rest helps. She is stiff for 1-2 hours in the morning. She has pain on t he side of the right hip. The base of the thumb hurts but is better today. Other joints are fine. She is taking methotrexate 10 mg a week and Plaquenil 400 mg a day. No history of malar rash, oral or [...] daily. Calcium 600 mg, D3 400 IU CALCIUM CARBONATE/VITAMIN D3 (CALCIUM + D ORAL) Take by mouth. cholecalciferol, Vitamin D3, 1,000 unit oral tablet [...] 220 mg oral capsule Take by mouth. ranitidine (ZANTAC) 150 mg Oral tablet Take [...] mother. Rapid 3 Exam: Vital Signs: BP 120/78 | Pulse 88 | Wt 88.451 kg (195 lb) | BMI 32.45 kg/(m^2) Pain S core: Gen: Well nourished, well developed, in NAD [...] and plaquenil for more sue n a year. She did not think that this was helping her but noted a worsening of symptoms when she discontinued methotrexate. Since then she has resumed it and she is feeling significan tly better. The knees and neck are much better. She does not have any synovitis or extra-art icular features of RA. At this time she does not have features suggestive of inflammation in the joints. She will lower the dose of Plaquenil to 200 mg once a day. I am repeating the labs today and will also check for the ESR. Plan: I reviewed the patient s questionnaire which included more than 10 review of systems. I s pent 20 minutes [id number] with the patient with over 50% in counseling the patient regard ing joint pain. Orders Placed This Encounter CBC, W/ DIFF Complete Metabolic Panel ESR (Sedimentation rate) CBC Q8 Weeks - Exernal CMP Q8 Weeks - External naproxen sodium (ALEVE) 220 mg oral capsule VIT A/VIT C/VIT E/ZINC/COPPER (ICAPS AREDS ORAL) CALCIUM CARBONATE/VITAMIN D3 (CALCIUM + D ORAL) GLUC HCL/GLUC GARZA/AC-D-GLUCOS (GLUCOSAMINE COMPLEX ORAL) ACETAMINOPHEN (TYLENOL ARTHRITIS ORAL) cholecalciferol, Vitamin D3, 1,000 unit oral tablet losartan 25 mg oral tablet Continue current medications. Review in 8 weeks. docum ented in this encounter Plan of Treatment Not on filedocumented as of this encounter Results SEDIMENTATION RATE (12/22/2013 3:09 PM PDT) + [...] | + + + + + | [facility] | [address] [facility] | [place] [address] | | | SERVICES, CORE | CELINA [...] | | | LABORATORY | | | NAMIBIAN | | | SERVICES, | | | [...] [facility] | [address] | [place] [address] | | | SERVICES, CORE | [address] | | | + + + + + documented in this encounter Visit Diagnoses + + | Diagnosis | + + | Rheumatoid arthritis - Primary | + + documented in this encounter"
--- OUTSIDE RECORDS SUMMARY | ~2019-05-17 | XMS | Encounter Summary ---
Demographics + + + | Address | [address] | | | [place] [address] | + + + | Home Phone [...] | [facility] | | | and Azana | + + + | Organization | [facility] | | | and [...] [place], [place] | | | | | [address] | | + + + + + | Helena Doherty | ECON | [place], | | | | | [place] [address] | | + + + + + Care Team Providers + +------+ + | Care Freight Breaker Name | Role | Phone | + [...] left hip | [address] | [place] | | | | | Trochanteric | Ave | [address] Phone: | | | | | bursitis, | [place], | [phone] | | | | | right hip | [place] | Fax: | | | | | Fibromyalgia | [address] | [phone] | | | | | Procedures | Phone: | | | | | | PT Noel w/ | [phone] | | | | | | Aiyana | Fax: | | | | | | [facility] | [phone] | | +--------+--------+ + + + + Encounter Details +--------+---------+ + + + | Date | Type | Department | Care Team | Description | +--------+---------+ + + + | 04/30/ | Office | [facility] | Schmidtgall, | Neck pain (Primary | | 2018 | Visit | MED CTR THERAPY PT | Sophia Kingsley PA-C | Dx); Trochanteric | | | | OP [address] | [address] | bursitis of both | | | | [place] | [place], [place] | hips; Fibromyalgia | | | | [address] | [address] | | | | | [phone] | [phone] | | | | | | | | | | | | Aiyana Fish S, PT | | | | | | [address] | | | | | | [place] | | | | | | [address] | | | | | | | [...] might be different fro m the original. [facility] THERAPY PT OP [address] [place] [address] Physical Therapy Daily Treatment Note Date: 04/30/2018 Patient Information Patient Name: Ashly Santiago Date of : 1940 Age: 78 y.o. Encounter Diagnoses Code Name Primary? M54.2 Neck pain Yes M70.61, M70.62 Trochanteric bursitis of both hips M79.7 Fibromyalgia Date of Onset: 04/10/2018 Referring Provider: Sophia Bush PA-C Rehab Precautions Office Visit from 04/17/2018 in [facility] THER[facility] PT OP Rehab Precautions Precautions None Rehab Learning Style Office Visit from 04/17/2018 in [facility] PT OP Office Visit fro m 10/19/2016 in [facility]ERAP[facility] PT OP Learning Style [...] | | | | [address] [facility] | | | | | | [place] [address] | | | | | | [phone] | | | | | | | | | | | | Tester Waste Disposal LeakageNaomi | | +--------+ + + + + documented as of this encounter Visit Diagnoses + + | Diagnosis | + + | Neck pain - Primary Cervicalgia | + + | Trochanteric bursitis of both hips Enthesopathy of hip region | + + | Fibromyalgia Mylagia and myositis, unspecified | + + documented in this encounter"
--- OUTSIDE RECORDS SUMMARY | ~2019-05-17 | XMS | Encounter Summary ---
Demographics + + + | Address | [address] | | | [place] [address] | + + + | Home Phone | | + + + | Preferred Language | Unknown | + + + | Marital Status | | + + + | Taoist Affiliation | 1077 | + + + | Race | Unknown | + + + | Ethnic Group | Unknown | + + + Author + + + | Author | [facility] | | | and Azana | + + + | Organization | [facility] | [...] [place], [place] | | | | | [address] | | + + + + + | Helena Doherty | ECON | [place], | | | | | [place] [address] | | + + + + + Care Team Providers + +------+ + | Care Binding Printer Name | Role | Phone | + +------+ + | Thee Boss MD | PCP | | + +------+ + Encounter Details +--------+ + + + + | Date | Type | Department | Care Team | Description | +--------+ + + + + | 11/20/ | Hospital | [facility] | Osman Beth | | | 2012 | Encounter | MED CTR XRAY [address] | | | | | [place] | [address] [place], [place] | | | | | [place] [address] | [address] | | | | | [phone] | | | +--------+ + + + [...] + + + +---------+ + + | Calcium | TABS | | 0 | 03/08/20 | | | Carbonate-Vitamin D | | | | 12 | 5 | | (CALCIUM + D PO) | | | | | | + + + +---------+ + + | calcium-vitamin D | Take 1 tablet by | | 0 | | | | (CALCIUM + D) 600 | mouth 2 times daily. | | | | 7 | | mg-200 units per | | | | | | | tablet | | | | | | + + + +---------+ + + | Cholecalciferol | | | 0 | 03/08/20 | | | (VITAMIN D) 1000 | | | | 12 | 5 | | UNITS CAPS | | | | | | + + + +---------+ + + | Chondroitin | | | 0 | 03/08/20 | | | Sulfate 250 MG CAPS | | | | 12 | 5 | + + + +---------+ + + | CHONDROITIN | Take 1,250 mg by | | 0 | | | | SULFATE | mouth 2 times daily. | | | | 7 | + + + +---------+ + + | DULoxetine | Take 40 mg by mouth | | 0 | | | | (CYMBALTA) 20 mg | Daily. | | | | 7 | | capsule | | | | | | + + + +---------+ + + | estradiol (ESTRACE | | | 0 | 03/08/20 | | | VAGINAL) 0.1 mg/g | | | | 12 | 7 | | vaginal cream | | | | | | + + + +---------+ + + | Glucosamine | | | 0 | 03/08/20 | | | Sulfate 1000 MG CAPS | | | | 12 | 5 | + + + +---------+ + + | | Take 25 mg by mouth | | 0 | | | | hydrochlorothiazide | Daily. | | | | 7 | | 25 mg tablet | | | | | | + + + +---------+ + + | L-Lysine HCl 500 | | | 0 | 03/08/20 | | | MG CAPS | | | | 12 | 7 | + + + +---------+ + + | Melatonin 1 MG | Take 5 mg by mouth | | 0 | | | | TABS | nightly. | | | | 7 | + + + +---------+ + + | omeprazole | Take 20 mg by mouth | | 0 | | | | (PRILOSEC) 10 mg | every morning | | | | 7 | | capsule | (before breakfast). | | | | | + + + +---------+ + + | solifenacin | | | 0 | 03/08/20 | | | (VESICARE) 10 MG | | | | 12 | 7 | | tablet | | | | | | + + + +---------+ + + | valsartan (DIOVAN) | Take 40 mg by mouth | | 0 | 03/08/20 | | | 40 mg tablet | Daily. | | | 12 | 7 | + + + +---------+ [...] | | | | | [place] [address] | | | | | | [phone] | | | | | | | | | | | | Manager RadioNaomi | | +--------+ + + + + documented as of this encounter Procedures + +--------+ + + + | Procedure Name | Priori | Date/Time | Associated Diagnosis | Comments | | | ty | | | | + +--------+ + + + | FL FACET INJECTION | Routin | 11/22/2012 | | Results for this | | | e | 9:40 AM | | procedure are in the | | | | PDT | | results section. | + +--------+ + + + documented in this encounter Results FL Facet Injection (11/22/2012 9:40 AM PDT) + + | Specimen | + + | | + + + + + | Narrative | Performed At | + + + | [facility] | [place] | | Department [address] [place] [address] | [facility] | | [ rep ct [address]] [ rep ct [facility] | | st zip] Signed | - IMAGING | | | | | Patient Name: ASHLY ZAVALETA Physician: | | | NANCY : 1940 Age: 72 Sex: F Unit #: [id number] | | | Exam Date: 11/20/12 Location: [facility] | | | Report #: [id number] Page: | | | %(RAD)RES..mtdd.print.filter("pg") of %(RAD) | | | RES..mtdd.print.filter("tpg") | | | | | | Accession Number: [id number] | | | LUMBAR FACET INJECTION, 11/21/2012 CLINICAL HISTORY: ICD-9 | | | CODE 721.3, LUMBAR SPONDYLOSIS. Ms. Ashly Zavaleta presents | | | to the fluoroscopy suite for fluoroscopically-guided bilateral L5-S1 | | | facet injections as part of conservative management for chronic pain | | | with lumbar spondylosis. After informed consent was obtained, the | | | patient lay in the prone position on the fluoroscopy table. The | | | areas were identified under fluoroscopic guidance. The areas were | | | prepped and draped in sterile fashion. A 25- gauge, 1.5-inch needle | | | was inserted into each region and approximately 3 mL of buffered 1% | | | lidocaine was infused. Then, a 22-gauge spinal needle was inserted | | | into the superior portion of each facet under fluoroscopic | | | guidance. Confirmation into the joint space was obtained with | | | infusion of approximately 25 mL of Isovue contrast which showed flow | | | into each facet joint. Then, a combination of 1 mL of 1% | | | lidocaine and 1 mL of 40 mg/mL Kenalog was infused divided between the | | | 2 sides. The patient tolerated the procedures well without | | | complications. Pre and postprocedure blood pressures were stable. | | | The patient was given verbal as well as written followup | | | instructions. The patient reported good improvement in pain status | | | post procedure. Prior to the start of the procedure, [...] and/or medication use have been addressed. I | | | personally performed the procedure above. Dictated | | | Date/Time: 11/22/2012 09:40 Transcribed Date/Time: 11/22/2012 | | | 11:04 Validation Analyst: <<Signature on | | | File>> | | | Osman Price | | | MD Kirit11/29/12 0818 <Electronically signed by Osman Price | | | Kirit MARROQUIN> Osman Beth MD 11/22/12 0940 | | | Validation Analyst: PROTEGOmelecio [email or web address]/31/13 1104 | | | | | + + + + + + + + | Performing | Address | City/State/Zipcode | Phone Number | | Organization | | | | + + + + + | [facility] | [address] | [place] | [phone] | | [facility] | | [address] | | | - IMAGING | | | | + + + + + documented in this encounter Visit Diagnoses Not on filedocumented in this encounter
--- OUTSIDE RECORDS SUMMARY | ~2019-05-17 | XMS | Encounter Summary ---
Demographics + + + | Address | [address] | | | [place] [address] | + + + | Home Phone | | + + + | Preferred Language | Unknown | + + + | Marital Status | | + + + | Methodist Affiliation | 1077 | + + + | Race | Unknown | + + + | Ethnic Group | Unknown | + + + Author + + + | Author | [facility] | | | and [place]ana | + + + | Organization | [facility] | | | and Azana | [...] [place], [place] | | | | | [address] | | + + + + + | Helena Doherty | ECON | [place], | | | | | [place] [address] | | + + + + + Care Team Providers + +------+ + | Care Barrel Rifler Name | Role | Phone | + +------+ + PCP | Unavailable | + +------+ + Encounter Details +--------+ + + + + | Date | Type | Department | Care Team | Description | +--------+ + + + + | 12/05/ | Hospital | [facility] | Osman Beth | | | 2011 | Encounter | MED CTR XRAY [address] | | | | | [place] | [place], [place] | | | | | [place] [address] | [address] | | | | | [phone] | | | +--------+ + + + [...] + + + +---------+ + + | traMADol (ULTRAM) | TAKE 1-2 TABS EVERY | | 0 | 10/24/19 | | | 50 mg tablet | 8 HOURS NEEDED | | | 12 | 3 | | | FOR PAIN | | | | | + + [...] | | | | | | [place] | | | | | | [place] [address] | | | | | | [phone] | | | | | | | | | | | | F[employer], [facility] | | +--------+ + + + + documented as of this encounter Procedures + +--------+ + + + | Procedure Name | Priori | Date/Time | Associated Diagnosis | Comments | | | ty | | | | + +--------+ + + + | FL EPIDURAL STEROID | | 12/06/2011 | | Results for this | | INJECTION LUMBAR | | 2:58 PM | | procedure are in the | | TRANSFORAMINAL | | PDT | | results section. | + +--------+ + + + documented in this encounter Results FL ROCK Lumbar Transforaminal (12/06/2011 2:58 PM PDT) + + | Specimen | + + | | + + + + + | Narrative | Performed At | + + + | [facility] Diagnostic Imaging Department | [facility] | | [address] [facility] | [facility] | | PROCEDURE NOTE EPIDURAL | DIAG IMG | | STEROID INJECTIONS, 12/06/2011 CLINICAL HISTORY: ICD-9 CODE | | | 724.4, LUMBAR RADICULOPATHY AND DEGENERATIVE DISK DISEASE. | | | Ms. Ashly Santiago presents to the fluoroscopy suite for | | | fluoroscopically guided bilateral L4-L5 transforominal epidural | | | steroid injections as part of conservative management for chronic | | | pain with lumbar radiculopathy and degenerative disk disease. | | | After informed consent was obtained, the patient lay in the prone | | | position on the fluoroscopy table. The areas were identified under | | | fluoroscopic guidance. The areas were prepped and draped in sterile | | | fashion. A 25-gauge, 1.5-inch needle was inserted into each | | | region and approximately 3 mL of buffered 1% lidocaine was infused. | | | Then, a 22-gauge spinal needle was inserted into the posterior | | | superior transforaminal space and advanced into the epidural space | | | under fluoroscopic guidance. Confirmation into the epidural space | | | was obtained with infusion of approximately 1 mL of Isovue contrast | | | which showed epidural flow as well as nerve sheath flow. Then, a | | | combination of 2 mL of 1% lidocaine and 2 mL of 6 mg/mL Celestone was | | | infused divided between the two sides. The patient tolerated the | | | procedure well without complications. Pre- and post-procedure | | | blood pressures were stable. The patient was given verbal as well | | | as written followup instructions, and the patient reported no | | | significant change in pain symptoms post procedure. Prior to | | | the start of the procedure, the following were performed and verified, | | | including correct patient identity, correct site/side marked and | | | visible, agreement on the procedure to be done, correct patient | | | positioning and an accurate procedure consent form. Any safety | | | precautions based on clinical history and/or medication use have | | | been addressed. I personally performed the procedure above. | | | Dictated Date/Time: 12/08/2011 13:27 Transcribed Date/Time: | | | 12/08/2011 14:05 Slate Worker: <Electronically Signed | | | by Osman Beth MD> 12/08/11 1417 | | + + + + + | Procedure Note | + + | Hong, Rad Conversion - 08/01/2013 5:31 PM [facility] | | Diagnostic Imaging Department | | [address] [facility] | | | | | | | | PROCEDURE NOTE | | | | EPIDURAL STEROID INJECTIONS, 12/06/2011 | | | | CLINICAL HISTORY: ICD-9 CODE 724.4, LUMBAR RADICULOPATHY AND DEGENERATIVE DISK | | DISEASE. | | | | Ms. Ashly Santiago presents to the fluoroscopy suite for fluoroscopically guided | | bilateral L4-L5 transforominal epidural steroid injections as part of | | conservative management for chronic pain with lumbar radiculopathy and | | degenerative disk disease. After informed consent was obtained, the patient | | lay in the prone position on the fluoroscopy table. The areas were identified | | under fluoroscopic guidance. The areas were prepped and draped in sterile | | fashion. A 25-gauge, 1.5-inch needle was inserted into each region and | | approximately 3 mL of buffered 1% lidocaine was infused. Then, a 22-gauge | | spinal needle was inserted into the posterior superior transforaminal space and | | advanced into the epidural space under fluoroscopic guidance. Confirmation | | into the epidural space was obtained with infusion of approximately 1 mL of | | Isovue contrast which showed epidural flow as well as nerve sheath flow. Then, | | a combination of 2 mL of 1% lidocaine and 2 mL of 6 mg/mL Celestone was infused | | divided between the two sides. The patient tolerated the procedure well | | without complications. Pre- and post-procedure blood pressures were stable. | | The patient was given verbal as well as written followup instructions, and the | | patient reported no significant change in pain symptoms post procedure. | | | | Prior to the start of the procedure, the following were performed and verified, | | including correct patient identity, correct site/side marked and visible, | | agreement on the procedure to be done, correct patient positioning and an | | accurate procedure consent form. Any safety precautions based on clinical | | history and/or medication use have been addressed. | | | | I personally performed the procedure above. | | | | Dictated Date/Time: 12/08/2011 13:27 | | Transcribed Date/Time: 12/08/2011 14:05 | | Slate Worker: | | <Electronically Signed by Osman Beth MD> 12/08/11 1417 | + + + +---------+ + + | Performing | Address | City/State/Zipcode | Phone Number | | Organization | | | | + +---------+ + + | [place] | | | | | [facility] | | | | + +---------+ + + documented in this encounter Visit Diagnoses Not on filedocumented in this encounter"
--- OUTSIDE RECORDS SUMMARY | ~2019-05-17 | XMS | Encounter Summary ---
Demographics + + + | Address | [address] | | | [place] [address] | + + + | Home Phone | | + + + | Preferred Language | Unknown | + + + | Marital Status | | + + + | Caodaism Affiliation | 1077 | + + + | Race | Unknown | + + + | Ethnic Group | Unknown | + + + Author + + + | Author | [facility] | | | and [place]ana | + + + | Organization | [facility] | | | and Azana [...] [place], [place] | | | | | [address] | | + + + + + | Helena Doherty | ECON | [place], | | | | | [place] [address] | | + + + + + Care Team Providers + +------+ + | Care Notcher Name | Role | Phone | + +------+ + | Nathan Luevano DO | PCP | | + +------+ + Reason for Visit +--------+ + | Reason | Comments | +--------+ + | Pain | | +--------+ + Encounter Details +--------+ + + + + | Date | Type | Department | Care Team | Description | +--------+ + + + + | 12/03/ | Telephone | [facility] | Agusto Pereira MD | Pain | | 2018 | | NEUROSURGERY [address] | [address] | | | | | [address] | [place] [address] | | | | | [place] | [phone] | | | | | [address] | | | | | | [phone] | | | +--------+ + + + [...] | | | | | | [place] [address] | | | | | | [phone] | | | | | | | | | | | | Ward SupervisorNaomi | | +--------+ + + + + documented as of this encounter Visit Diagnoses Not on filedocumented in this encounter"
--- OUTSIDE RECORDS SUMMARY | ~2019-05-17 | XMS | Encounter Summary ---
Demographics + + + | Address | [address] [facility] | | | [place] [address] | + + + | Home Phone [...] Team Providers + +------+ + | Care Treasury Director Name | Role | Phone | + +------+ + | Thee Boss MD | PCP | | + +------+ + Encounter Details +--------+ + + + + | Date | Type | Department | Care Team | Description | +--------+ + + + + | 06/02/ | Telephone | Rheumatology at | Tavia Zuniga | | | 2013 | | KALA Fox [address] | | | | | [address] | [address] | | | | | Amara Chatman Mailcode: | [place], [place] | | | | | [address] Physician's | [address] | | | | | Francy, [facility] | [phone] | | | | | [place], [place] | | | | | | [address] | | | | | | [phone] | | | +--------+ + + + [...]
--- OUTSIDE RECORDS SUMMARY | ~2019-05-17 | XMS | Encounter Summary ---
Demographics + + + | Address | [address] [facility] | | | [place] [address] | + + + | Home Phone [...] Author | [facility] | + + + | Organization | [facility] | + + + | Address | Unknown | + + + | Phone | Unavailable | + + + Support + + +---------+ + | Name | Relationship | Address | Phone | + + +---------+ + | Alon Santiago | ECON | Unknown | | + + +---------+ + Care Team Providers + +------+ + | Care Hyperion Essbase Developer Name | Role | Phone | + +------+ + | Thee Boss MD | PCP | | + +------+ + Encounter Details +--------+ + + + + | Date | Type | Department | Care Team | Description | +--------+ + + + + | 04/09/ | MyChart | Rheumatology at | Tavia Zuniga | Recommendations from | | 2012 | Encounter | Physicians KALA Fung [address] | consultation | | | | [address] | [address] | | | | | Amara Chatman Mailcode: | [place], [place] | | | | | [address] Physician's | [address] | | | | | Francy, [address] Floor | [phone] | | | | | [place], [place] | | | | | | [address] | | | | | | [phone] | | | +--------+ + + + [...]
--- OUTSIDE RECORDS SUMMARY | ~2019-05-17 | XMS | Encounter Summary ---
Demographics + + + | Address | [address] [facility] | | | [place] [address] | + + + | Home Phone | | + + + | Preferred Language | Unknown | + + + | Marital Status | | + + + | Spiritism Affiliation | 1077 | + + + | Race | Unknown | + + + | Ethnic Group | Unknown | + + + Author + + + | Author | [facility] | | | and Azana | + + + | Organization | [facility] | | | and [...] [place], [place] | | | | | [address] | | + + + + + | Helena Doherty | ECON | [place], | | | | | [place] [address] | | + + + + + Care Team Providers + +------+ + | Care Certified Medical Assistant Name | Role | Phone | [...] + + | 11/13/ | Telephone | [facility] | Agusto Pereira MD | Procedure; Surgery | | 2017 | | NEUROSURGERY [address] | [address] | Appointment | | | | [address] [facility] | [place] [address] | | | | | MARCOS Zavala | [phone] | | | | | [address] | | | | | | [phone] | | | +--------+ + + + [...] | | | | | [place] [address] | | | | | | [phone] | | | | | | | | | | | | Mineral Engineer, [employer] | | +--------+ + + + + documented as of this encounter Visit Diagnoses Not on filedocumented in this encounter"
--- OUTSIDE RECORDS SUMMARY | ~2019-05-17 | XMS | Encounter Summary ---
Demographics + + + | Address | [address] [facility] | | | [place] [address] | + + + | Home Phone | | + + + | Preferred Language | Unknown | + + + | Marital Status | | + + + | Denominational Affiliation | Unknown | + + + | Race | White | + + + | Ethnic Group | Not or | + + + Author + + + | Author | [facility] | + + + | Organization | [facility] | + + + | Address | Unknown | + + + | Phone | Unavailable | + + + Support + + +---------+ + | Name | Relationship | Address | Phone | + + +---------+ + | Alon Santiago | ECON | Unknown | | + + +---------+ + Care Team Providers + +------+ + | Care Senior Search Marketing Analyst Name | Role | Phone | + +------+ + | Thee Boss MD | PCP | | + +------+ + Reason for Visit + + + | Reason | Comments | + + + | New patient | | | consultation | | + + + Encounter Details +--------+---------+ + + + | Date | Type | Department | Care Team | Description | +--------+---------+ + + + | 05/06/ | Office | Rheumatology at | Rosas Lucia MD | Joint pain (Primary | | 2013 | Visit | Palmira Sen | [address] | Dx) | | | | [address] | [address] [place], | | | | | Celina Chatman Mailcode: | [place] [address] | | | | | [address] Physician's | [phone] | | | | | Francy, [facility] Floor | | | | | | [place], [place] | | | | | | [address] | | | | | | [phone] | | | +--------+---------+ + + + [...] + + + | Blood Pressure | 144/72 | 05/06/2013 2:46 PM | | | | | PST | | + + + + + | Pulse | 77 | 05/06/2013 2:46 PM | | | | | PST [...] Weight | 89.8 kg (198 lb) | 05/06/2013 2:46 PM | | | | | PST | | + + + + + | Height | - | - | | + + + + + | Body Mass Index | 32.95 | 04/07/2013 2:16 PM | | | | | PDT | | + + + + + documented in this encounter Progress Notes Rosas Lucia MD - 05/06/2013 2:14 PM PSTFormatting of this note might be different from t toby original. RHEUMATOLOGY NEW PATIENT CONSULT This consultation was requested by: Tavia Linda, KALA [address] [facility] [place] [address] fax: [phone] CC: Chief Complaint Patient presents with New patient consultation joint pain HPI: Ms Santiago is a 73 y.o. female, here for consultation from regarding diagnosis, and p ossible change in therapy for joint pain. She has had joint pain for the past 10-15 years ag o and has worsened recently in the past couple of years. Her PCP diagnosed her with RA on e basis of labs and Dr Shelton, who was her Float Phlebotomist, was not sure if the symptoms wer e from RA. She has been started on methotrexate for the past 6-8 months and Plaquenil for th e past 8 months or so. She is not sure if that has helped and feels that the only way to be sure will be to discontinue it. She does not want to do that as she feels that she might get worse. She hurts in all the joints from the neck below. Both small and large joints hurt. EMS for 2-3 hours and when she is inactive. The joints are not red, hot and swollen but the ankle quach s been swollen in the past. The pain is bad in the morning, then gets better and finally wor sens later in the day. The average pain is 7/10 and the pain is a sharp stabbing and shootin g pain. Massage helps some. Using the joints makes the pain worse. The entire back hurts except for the middle part. It has been hurting for the past 10-15 ye ars at least. The pain can wake her from sleep. There are some spots where the pain is const ant but others that move from side to side. Activity makes the pain worse. No history of malar rash, oral or [...] made her depressed and she gained weight. Initially, on a high dose she felt little relief in joint pain. I reviewed the patient's records. Pertinent details are: joint pain ROS: General: occasional fevers, night sweats. Eyes: No changes in visual acuity, diplopia or amaurosis, no discharge, matting, redness, tearing or eye pain. Ears/Nose/Throat: No sore throat, dental pain, hoarseness, dysphagia, oral or tongue lesio ns. No history of hearing loss, ear pain, tinnitus or aural discharge. CVS: No chest pain, leg swelling, or palpitations. Respiratory: No shortness of breath, cough, or pain with breathing. Gastrointestinal: No abdominal or flank pain, anorexia, nausea or vomiting, dysphagia, yanci nge in bowel habits or black or bloody stools or weight loss. Musculoskeletal: As above. Neurologic: No symptoms of neurological impairment or TIAs; no amaurosis, diplopia, dysphas ia, or unilateral disturbance of motor or sensory function. some loss of balance or vertigo. Heme/Lymphatic: No abnormal bleeding or enlarged lymph nodes. Easy bruising. Skin: No rash. PMH: Past Medical History Diagnosis Date Fibromyalgia Arthropathy, unspecified, site unspecified Other general symptoms IBS (irritable bowel syndrome) HTN (hypertension), benign Endometriosis Melanoma PSH: Past Surgical History Procedure Laterality Date Laparotomy 1959 Pr foot/toes surgery proc unlisted Appendectomy Cataract removal Hysterectomy with ovaries age 32 Retinal detachment repair Repair of cystocele and rectocele Bunion surgery Cholecystectomy Meds: Current Outpatient Prescriptions Medication Sig Acetaminophen (TYLENOL EXTRA STRENGTH) 500 mg OR TABS 4 daily Ascorbic Acid (VITAMIN C) 500 mg OR CHEW 1 day CHONDROITIN SULFATE A ORAL Take by mouth two times daily. DULoxetine (CYMBALTA) 20 mg Oral capsule,delayed release(DR/EC) Take 20 mg by mouth two times daily. ERGOCALCIFEROL, VITAMIN D2, (VITAMIN D ORAL) Take by mouth. Estradiol (ESTRACE) 0.01 % (0.1 mg/g) VA CREA every other day folic acid 1 mg Oral tablet Take 1 tablet by mouth once daily. GLUC GARZA/CHONDRO GARZA A/VIT C/MN (GLUCOSAMINE 1500 COMPLEX ORAL) Take by mouth two times daily. hydrochlorothiazide 12.5 mg Oral tablet Take by mouth once daily. hydroxychloroquine (PLAQUENIL) 200 mg Oral tablet Take 400 mg by mouth two times daily. Lysine 500 mg OR CAPS 1 day methotrexate 2.5 mg Oral tablet Take 15 mg by mouth every seven days. pregabalin 150 mg Oral capsule Take 150 mg by mouth two times daily. Max: 600 mg/day ranitidine (ZANTAC) 150 mg Oral tablet Take 150 mg by mouth as needed. SOFT CHEWS CALCIUM OR 3 day Solifenacin Succinate (VESICARE) 10 mg OR TABS 1 day SOY ISOFLAVONES OR 1-3 day TYLENOL [...] and Stroke in her mother. Rapid 3 MHAQ: 3.7 (05/06/13 1400) PAIN LEVEL: 9 (05/06/131399) GLOBAL ASSESSMENT: 8 (05/06/131399) RAPID 3: 6.9 (05/06/131399) Exam: Vital Signs: BP 144/72 | Pulse 77 | Wt 89.812 kg (198 lb) | BMI 32.95 kg/(m^2) Pain S core: Gen: Well nourished, [...] pain. She has history of fibromyalgia and was diagnosed with RA on the basis of lab tests. She has been receiving me thotrexate and plaquenil for at least 6 months and does not know if these are helping her. S he is stiff for several hours in the morning and hurts in both small and large joints bilate rally. She does not have any synovitis or extra-articular features of RA. At this time she d oes not have features suggestive of inflammation in the joints and I am not sure if this is from the use of methotrexate and plaquenil. I will order some baseline labs today and look f or serological changes and xrays to look for erosions seen in RA. I will review once I have the results. Plan: I reviewed the patient s questionnaire which included more than 10 review of systems. I s pent 35 minutes fauk-gy-guoe with the patient with over 50% in counseling the patient regard ing joint pain. Orders Placed This Encounter X-RAY SACROILIAC JOINTS 1 VIEW (AP Benson) X-RAY HAND 1 VIEWS BILATERAL (PA) X-RAY ELBOW 1 VIEW LEFT CBC, W/ DIFF Complete Metabolic Panel ESR (Sedimentation rate) CRP (C-reactive protein) Rheumatoid Factor Anti - CCP Continue current medications. Review in 4 weeks. docum ented in this encounter Plan of Treatment Not on filedocumented as of this encounter Results CYCLIC CITRUL PEPTIDE AB IGG, SERUM (05/06/2013 [...] by | | | | | | Workspace,[address] | | | | [address], [facility] | | | | | | [address] | | | | | | [phone]. [email or web address] | | | | | Delvis [...] [facility] | [address] | [place], [place] | | | [facility] | | [address] | | + + + + + [...] | | | [place] | | + +--------+ + + + + + | Specimen | + + | Blood - Blood | + + + + + + + | Performing | Address | City/State/Zipcode | Phone Number | | Organization | | | | + + + + + | [facility] | [address] | [place] [address] | | | [place] | | | [...] + | [facility] | [address] | [place] [address] | | | [place] | | | | + + + [...] + + + | [facility] | [address] | [place] [address] | | | SERVICES, CORE | PARK [...] | | | LABORATORY | | | [facility] | | | SERVICES, | | | [...] | + + + + + | [facility] | [address] | [place] [address] | | | SERVICES, CORE | [address] | | | + + + + + X-RAY ELBOW 1 VIEW LEFT (05/06/2013 3:53 PM PST) + + + + + + | Component | Value | Ref Range | Performed | Pathologist | | | | | At | Signature | + + + + + + | ELBOW 1 | STUDY: ELBOW 1 VIEWS | | | | | VIEW LEFT | LEFT 05/06/13 15:53:00 | | | | | | HISTORY: Pain. | | | | | | COMPARISON: None. | | | | | | FINDINGS: A single AP | | | | | | view of the left elbow | | | | | | shows no fracture, focal | | | | | | destruction, jointspace | | | | | | narrowing or | | | | | | malalignment. No | | | | | | erosion is observed and | | | | | | no focal softtissue | | | | | | abnormality is | | | | | | identified. IMPRESSION: | | | | | | Normal AP view of the | | | | | | left elbow. Attending | | | | | | Radiologists: ANGELES | | | | | | DIA SOLOMONuthor: | | | | | | ANGELES SOLOMON MD I | | | | | [...] | | | | | JUANITO 05/06/2013 15:59 | | | | | | PM | | | | + + + + + + + + | Specimen | + + | | + + + +---------+ + + | Performing | Address | City/State/Zipcode | Phone Number | | Organization | | | | + +---------+ + + | [facility] | | | | | [facility] | | | | + +---------+ + + X-RAY HAND 1 VIEWS BILATERAL (05/06/2013 3:53 PM PST) + + + + + + | Component | Value | Ref Range | Performed | Pathologist | | | | | At | Signature | + + + + + + | HAND 1 | STUDY: HAND 1 VIEW | | | | | VIEWS | BILATERAL 05/06/13 | | | | | BILATERAL | 15:53:00 HISTORY: Pain. | | | | | | COMPARISON: None. | | | | | | FINDINGS: The bones of | | | | | | both hands are intact | | | | | | without fracture, focal | | | | | | destruction,marginal | | | | | | erosion, juxta-articular | | | | | | osteopenia or | | | | | | malalignment. | | | | | | Corticatedossicles | | | | | | adjacent to both ulnar | | | | | | styloids are either | | | | | | posttraumatic or | | | | | | accessory.Joint space | | | | | | narrowing and spurring | | | | | | are moderate at both | | | | | | triscaphe joints, mildat | | | | | | both first CMC joints | | | | | | and mild to moderate | | | | | | throughout the DIP | | | | | | jointsbilaterally. | | | | | | Otherwise the joint | | | | | | spaces are relatively | | | | | | preserved. No | | | | | | focalsoft tissue | | | | | | abnormality is | | | | | | identified. IMPRESSION: | | | | | | Mild multifocal | | | | | | degenerative joint | | | | | | disease of both hands. | | | | | | No evidence | | | | | | ofinflammatory | | | | | | arthropathy. Attending | | | | | | Radiologists: ANGELES | | | | | | DIA SOLOMONuthor: | | | | | | ANGELES SOLOMON MD I | | | | | [...] | | | | | JUANITO 05/06/2013 16:01 | | | | | | PM | | | | + + + + + + + + | Specimen | + + | | + + + +---------+ + + | Performing | Address | City/State/Zipcode | Phone Number | | Organization | | | | + +---------+ + + | [facility] | | | | | [facility] | | | | + +---------+ + + X-RAY SACROILIAC JOINTS 1 VIEW (05/06/2013 3:53 [...] | | + +---------+ + + | [facility] | | | | | [facility] | | | | + +---------+ + + documented in this encounter Visit Diagnoses + + | Diagnosis | + + | Joint pain - Primary Pain in joint, site unspecified | + + documented in this encounter"
--- OUTSIDE RECORDS SUMMARY | ~2019-05-17 | XMS | Encounter Summary ---
Demographics + + + | Address | [address] | | | [place] [address] | + + + | Home Phone [...] | [facility] | | | and Azana | + + + | Organization | [facility] | | | and Azana [...] [place], [place] | | | | | [address] | | + + + + + | Helena Doherty | ECON | [place], | | | | | [place] [address] | | + + + + + Care Team Providers + +------+ + | Care Negative Spotter Name | Role | Phone | + +------+ + | Nathan Luevano DO | PCP | | + +------+ + Encounter Details +--------+ + + + + | Date | Type | Department | Care Team | Description | +--------+ + + + + | 05/16/ | Hospital | [facility] | Onesimo Oliveira | S/P lumbar fusion; | | 2017 | Encounter | MED CTR XRAY [address] | [address] | Lumbar | | | | [place] | [address] | radiculopathy; | | | | [place] [address] | [place], [place] | Lumbar foraminal | | | | [phone] | [address]602 | stenosis; Scoliosis | | | | [...] + + + +---------+ + + | FLUARIX | inject 0.5 | | 0 | 03/29/20 | | | QUADRIVALENT 0.5 ML | milliliter | | | 17 | 7 | | vaccine injection | intramuscularly | | | | | | (syringe) | | | | | | + [...] + + + +---------+ + + | sodium | Take 177 mLs by | 1 kit | 0 | 05/09/20 | | | sulfate-potassium | mouth See Admin | | | 17 | 7 | | sulfate-magnesium | Instructions. Drink | | | | | | sulfate (SUPREP | one bottle at 4PM | | | | | | BOWEL PREP KIT) oral | day prior to | | | | | | solution | procedure and 2ND | | | | | | | bottle at 6AM day of | | | | | | | procedure. | | | | | + + + +---------+ + + | tolterodine | | | 0 | 05/10/20 | | | (DETRBRUNO MELISSA) 4 MG 24 | | | | [...] [place] | | | | | | [place] [address] | | | | | | [phone] | | | | | | | | | | | | Loom MechanicLibrado | | +--------+ + + + + documented as of this encounter Procedures + +--------+ + + + | Procedure Name | Priori | Date/Time | Associated Diagnosis | Comments | | | ty | | | | + +--------+ + + + | XR LUMBAR SPINE 2 [place] | Routin | 05/16/2017 | S/P lumbar fusion | Results for this | | 3 VW | e | 12:56 PM | Lumbar | procedure are in the | | | | PST | radiculopathy | results section. | | | | | Lumbar foraminal | | | | | | stenosis Scoliosis | | | | | | of lumbar spine, | | | | | | unspecified | | | | | | scoliosis type | | + +--------+ + + + [...] or radiculitis, unspecified | + + | Lumbar foraminal stenosis Spinal stenosis, lumbar region, without neurogenic | | claudication | + + | Scoliosis of lumbar spine, unspecified scoliosis type | + + documented in this encounter"
--- OUTSIDE RECORDS SUMMARY | ~2019-05-17 | XMS | Encounter Summary ---
Demographics + + + | Address | [address] [facility] | | | [place] [address] | + + + | Home Phone [...] | Author | [facility] | | | and Azana | + + + | Organization | [facility] | | | and Azana [...] [place], [place] | | | | | [address] | | + + + + + | Helena Doherty | ECON | [place], | | | | | [place] [address] | | + + + + + Care Team Providers + +------+ + | Care Duct Layer Supervisor Name | Role | Phone | [...] | | | bursitis, | Ave | [address] Phone: | | | | | left hip | [place], | [phone] | | | | | M70.61 | [place] | Fax: | | | | | (ICD-10-CM) | [address] | [phone] | | | | | - | Phone: | | | | | | Trochanteric | [phone] | | | | | | bursitis, | Fax: | | | | | | right hip | [phone] | | | | | | M79.7 [...] | | [address] | [address] | pain; Trochanteric | | | | [place] | [place], [place] | bursitis of both | | | | [address] | [address] | hips | | | | [phone] | [phone] | | | | | | | [...] be different fro m the original. [facility] [address] [place] [address] Physical Therapy Daily Treatment Note Date: 07/18/2018 Patient Information Patient Name: Ashly Santiago Date of : 1940 Age: 78 y.o. Encounter Diagnoses Code Name Primary? M79.7 Fibromyalgia Yes M54.2 Neck pain M70.61, M70.62 Trochanteric bursitis of both hips Date of Onset: 04/10/2018 Referring Provider: Sophia Bush PA-C Rehab Precautions Office Visit from 04/17/2018 in [facility] PT OP Rehab Precautions Precautions None Rehab Learning Style Office Visit from 04/17/2018 in [facility] PT OP Office Visit fro m 10/19/2016 in [facility] PT OP Learning Style [...] [place] | | | | | | [place] [address] | | | | | | [phone] | | | | | | | | | | | | Diesel Lube TechNaomi | | +--------+ + + + + documented as of this encounter Visit Diagnoses + + | Diagnosis | + + | Fibromyalgia - Primary Mylagia and myositis, unspecified | + + | Neck pain Cervicalgia | + + | Trochanteric bursitis of both hips Enthesopathy of hip region | + + documented in this encounter"
--- OUTSIDE RECORDS SUMMARY | ~2019-05-17 | XMS | Encounter Summary ---
Demographics + + + | Address | [address] | | | [place] [address] | + + + | Home Phone | | + + + | Preferred Language | Unknown | + + + | Marital Status | | + + + | Christianity Affiliation | 1077 | + + + | Race | Unknown | + + + | Ethnic Group | Unknown | + + + Author + + + | Author | [facility] | | | and Azana | + + + | Organization | [facility] [...] [place], [place] | | | | | [address] | | + + + + + | Helena Doherty | ECON | [place], | | | | | [place] [address] | | + + + + + Care Team Providers + +------+ + | Care Underground Mining Section Foreman Name | Role | Phone | + [...] + + | 03/18/ | Telephone | [facility] [place] | Andrew Miranda, | Labs Only (CMP) | | 2017 | | PHYSIATRY [address] | PA-C [address] | | | | [place], | [address] [place] | | | | | [place] [address] | [place] [address] | | | | | [phone] | [phone] | | | | | | | [...] | | | | | | [place] [id number] | | | | | | [phone] | | | | | | | | | | | | Tow Truck DriverNaomi | | +--------+ + + + + documented as of this encounter Visit Diagnoses Not on filedocumented in this encounter"
--- OUTSIDE RECORDS SUMMARY | ~2019-05-17 | XMS | Encounter Summary ---
Demographics + + + | Address | [address] [facility] [facility] [facility] | | | [place] [address] | + + + | Home Phone | | + + + | Preferred Language | Unknown | + + + | Marital Status | | + + + | Religion Affiliation | 1077 | + + + | Race | Unknown | + + + | Ethnic Group | Unknown | + + + Author + + + | Author | [facility] | | | and Azana | + + + | Organization | [facility] | | | and [...] [place], [place] | | | | | [address] | | + + + + + | Helena Doherty | ECON | [place], | | | | | [place] [address] | | + + + + + Care Team Providers + +------+ + | Care Electron Beam Welding Machine Operator Name | Role | Phone | + +------+ + | Nathan Luevano DO | PCP | | + +------+ + Encounter Details +--------+ + + + + | Date | Type | Department | Care Team | Description | +--------+ + + + + | 05/16/ | Hospital | [facility] | Onesimo Oliveira | S/P lumbar fusion; | | 2017 | Encounter | MED CTR XRAY [address] | [address] | Lumbar | | | | [place] | [address] | radiculopathy; | | | | [place] [address] | [place], [place] | Lumbar foraminal | | | | [phone] | [id number] | stenosis; Scoliosis | | | | [...] [place]IA[place] | | | | | | [place] [address] | | | | | | [phone] | | | | | | | | | | | | Correctional LieutenantLibrado | | +--------+ + + + + [...]
--- OUTSIDE RECORDS SUMMARY | ~2019-05-17 | XMS | Encounter Summary ---
Demographics + + + | Address | [address] | | | [place] [address] | + + + | Home Phone | | + + + | Preferred Language | Unknown | + + + | Marital Status | | + + + | Moravian Affiliation | Unknown | + + + | Race | White | + + + | Ethnic Group | Not or | + + + Author + + + | Author | [facility] | + + + | Organization | [facility] | + + + | Address | Unknown | + + + | Phone | Unavailable | + + + Support + + +---------+ + | Name | Relationship | Address | Phone | + + +---------+ + | Alon Santiago | ECON | Unknown | | + + +---------+ + Care Team Providers + +------+ + | Care Pump Tester Name | Role | Phone | + +------+ + | Thee Boss MD | PCP | | + +------+ + Encounter Details +--------+ + + + + | Date | Type | Department | Care Team | Description | +--------+ + + + + | 02/09/ | MyChart | Rheumatology at | Rosas Lucia MD | RE: Hydroxychlor 200 | | 2014 | Encounter | Physicians [place] | [address] | mg (Plaquenil) tab | | | | [address] | [address] [place], | | | | | Am[place] Chatman Mailcode: | [place] [address] | | | | | [address] Physician's | [phone] | | | | | [place], | | | | | | [place] [address] | | | | | | [phone] | | | +--------+ + + + [...]
--- OUTSIDE RECORDS SUMMARY | ~2019-05-17 | XMS | Encounter Summary ---
Demographics + + + | Address | [address] | | | [place] [address] | + + + | Home Phone [...] Team Providers + +------+ + | Care Supervisor Assembly Stock Name | Role | Phone | + +------+ + | Nathan Luevano | PCP | | + +------+ + Encounter Details +--------+------+ + + + | Date | Type | Department | Care Team | Description | +--------+------+ + + + | 11/15/ | Lab | Laboratory, | | Rheumatoid arthritis | | 2015 | | Specimen Collection | | involving both | | | | at [facility] [address] [address] | | hands with positive | | | | [address] | | rheumatoid factor | | | | [place], | | ([facility]) | | | | [place] [address] | | | | | | [phone] | | | +--------+------+ + + + [...] | + +--------+ + + + | EZEQUIEL BY STEVE | Routin | 11/16/2015 | Rheumatoid | Results for this | | W/REFLEX TO IFA | e | 3:56 PM | arthritis involving | procedure are in the | | PATTERN & AB ID WHEN | | PDT | both hands with | results section. | | INDICATED | | | positive rheumatoid | | | | | | factor (HCC) | | + +--------+ + + + | CBC AND AUTO DIFF | Routin | 11/16/2015 | Rheumatoid | Results for this | | | e | 3:56 PM | arthritis involving | procedure are in the | | | | PDT | both hands with | results section. | | | | | positive rheumatoid | | | | | | factor (HCC) | | + +--------+ + + + | SSB AB | Routin | 11/16/2015 | Rheumatoid | Results for this | | | e | 3:56 PM | arthritis involving | procedure are in the | | | | PDT | both hands with | results section. | | | | | positive rheumatoid | | | | | | factor (HCC) | | + +--------+ + + + | SSA AB | Routin | 11/16/2015 | Rheumatoid | Results for this | | | e | 3:56 PM | arthritis involving | procedure are in the | | | | PDT | both hands with | results section. | | | | | positive rheumatoid | | | | | | factor (HCC) | | + +--------+ + + + | CBC, WITH | Routin | 11/16/2015 | Rheumatoid | Results for this | | DIFFERENTIAL | e | 3:56 PM | arthritis involving | procedure are in the | | | | PDT | both hands with | results section. | | | | | positive rheumatoid | | | | | | factor (HCC) | | + +--------+ + + + | COMPLETE METABOLIC | Routin | 11/16/2015 | Rheumatoid | Results for this | | SET | e | 3:56 PM | arthritis involving | procedure are in the | | (NA,K,CL,CO2,BUN,CRE | | PDT | both hands with | results section. | | AT,GLUC,CA,AST,ALT,B | | | positive rheumatoid | | | MEDINA TOTAL,ALK | | | factor (HCC) | | | PHOS,ALB,PROT TOTAL) | | | | | + +--------+ + + + | SEDIMENTATION RATE | Routin | 11/16/2015 | Rheumatoid | Results for this | | | e | 3:56 PM | arthritis involving | procedure are in the | | | | PDT | both hands with | results section. | | | | | positive rheumatoid | | | | | | factor (HCC) | | + +--------+ + + + documented in this encounter Results CBC AND AUTO DIFF (11/16/2015 3:56 PM PDT) + + + + + + | Component | Value | Ref Range | Performed | Pathologist | | | | | At | Signature | + + + + + + | WHITE CELL | 6.81 | 4.40 - 11.00 | [facility] | | | COUNT | | K/cu mm | LABORATORY | | | | | | SERVICES, | | | | | | CORE | | + + + + + + | RED CELL | 3.87 (L) | 4.00 - 5.20 | [facility] | | | COUNT | | M/cu mm | LABORATORY | | | | | | SERVICES, | | | | | | CORE | | + + + + + + | HEMOGLOBIN | 12.1 | 12.0 - 16.0 | [facility] | | | | | g/dL | LABORATORY | | | | | | SERVICES, | | | | | | CORE | | + + + + + + | HEMATOCRIT | 37.7 | 36.0 - 46.0 % | [facility] | | | | | | LABORATORY | | | | | | SERVICES, | | | | | | CORE | | + + + + + + | MCV | 97.4 (H) | 80.0 - 96.0 fL | [facility] | | | | | | LABORATORY | | | | | | SERVICES, | | | | | | CORE | | + + + + + + | MCHC | 32.1 | 33.0 - 35.5 | [facility] | | | | | g/dL | LABORATORY | | | | | | SERVICES, | | | | | | CORE | | + + + + + + | RDW SD | 47.4 (H) | 35.1 - 46.3 fL | [facility] | | | | | | LABORATORY | | | | | | SERVICES, | | | | | | CORE | | + + + + + + | PLATELET | 256 | 150 - 400 K/cu | [facility] | | | COUNT | | mm | LABORATORY | | | | | | SERVICES, | | | | | | CORE | | + + + + + + | MPV | 11.3 | 9.7 - 12.3 fL | [facility] [...] + + + + | NEUTROPHIL | 56.5 | 50.0 - 70.0 % | [facility] | | | % | | | LABORATORY | | | | | | SERVICES, | | | | | | CORE | | + + + + + + | LYMPHOCYTE | 28.5 | 18.0 - 42.0 % | [facility] | | | % | | | LABORATORY | | | | | | SERVICES, | | | | | | CORE | | + + + + + + | MONOCYTE % | 11.9 (H) | 3.5 - 9.0 % | [facility] | | | | | | LABORATORY | | | | | | SERVICES, | | | | | | CORE | | + + + + + + | EOS % | 2.1 | 1.0 - 3.0 % | [facility] [...] + + + + | IG% | 0.3Comment: Immature | 0.0 - 0.6 % | [...] + + + + | NEUTROPHIL | 3.85 | 1.80 - 7.70 | [facility] | | | # | | K/cu mm | LABORATORY | | | | | | SERVICES, | | | | | | CORE | | + + + + + + | LYMPHOCYTE | 1.94 | 1.00 - 4.80 | [facility] | | | # | | K/cu mm | LABORATORY | | | | | | SERVICES, | | | | | | CORE | | + + + + + + | MONOCYTE # | 0.81 | 0.10 - 0.90 | [facility] | | | | | K/cu mm | LABORATORY | | | | | | SERVICES, | | | | | | CORE | | + + + + + + | EOS # | 0.14 | 0.00 - 0.50 | [facility] | [...] [facility] | [address] | [place] [address] | | | SERVICES, CORE | [address] | | | + + + + + SSB AB (11/16/2015 3:56 PM PDT) + [...] by | | | | | | [facility],[address] | | | | | | David Velasquez, [facility] [place] | | | | | | [address] | | | | | | [phone]. | | | | | | Delvis [...] [facility] | [address] | [place], [place] | | | UN[facility] | | [address] | | + + + + + [...] by | | | | | | [employer],[address] | | | | | | David Velasquez, [facility] [place] | | | | | | [address] | | | | | | [phone].[email or web address]. | | | | | | dinorah, Delvis Ugarte, | | | | | | Wendy [...] + + | [facility] | [address] | [place], [place] | | | [facility] | | [address] | | + + + + + [...] by | | | | | | [employer],[address] | | | | | | David [facility], [facility] [place] | | | | | | [address] | | | | | | [phone].Roamer. | | | | | | dinorah, [...] [facility] | [address] | [place], [place] | | | [facility] | | [address] | | + + + + + [...] | + + + + + | [facility] | [address] | [place] [address] | | | SERVICES, CORE | [address] [...] the MDRD equation recommended by the | [facility] | | National Kidney Disease Education Program. [...] | + + + + + | [facility] | [address] | [place] [address] | | | SERVICES, CORE | [address] | | | + + + + + documented in this encounter Visit Diagnoses + + | Diagnosis | + + | Rheumatoid arthritis involving both hands with positive rheumatoid factor (HCC) | + + documented in this encounter"
--- OUTSIDE RECORDS SUMMARY | ~2019-05-17 | XMS | Encounter Summary ---
Demographics + + + | Address | [address] | | | [place] [address] | + + + | Home Phone [...] + + | Author | [facility] | | | and Azana | + + + | Organization | [facility] | | | [...] [place], [place] | | | | | [address] | | + + + + + | Helena Doherty | ECON | [place], | | | | | [place] [address] | | + + + + + Care Team Providers + +------+ + | Care Crew Supervisor Name | Role | Phone | [...] | | [address] | [place] [address] | | | | | [place] | [phone] | | | | | [address] | | | | | | [phone] | | | +--------+ + + + [...] | 05/19/ | Hospital | Radiology | Dnenys Pineda PA-C | | | 2019 | Encounter | | [address] | | | | | | [address] [place] | | | | | | [place] [address] | | | | | | [phone] | | | | | | | | | | | | Weight ShifterNaomi | | +--------+ + + + + documented as of this encounter Visit Diagnoses Not on filedocumented in this encounter"
--- OUTSIDE RECORDS SUMMARY | ~2019-05-17 | XMS | Encounter Summary ---
Demographics + + + | Address | [address] | | | [place] [address] | + + + | Home Phone | | + + + | Preferred Language | Unknown | + + + | Marital Status | | + + + | Confucianism Affiliation | Unknown | + + + [...] Team Providers + +------+ + | Care Receivable Executive Name | Role | Phone | [...] | | | | | | at [address] | | | | | | [address] | | | | | | [place], | | | | | | [place] [address] | | | | | | [phone] | | | +--------+------+ + + + [...] + | [facility] | [address] | [place] [address] | | | SERVICES, [facility] | [address] | | | + [...] by | | | | | | [employer],[address] | | | | | | Alisia Velasquez, [facility] | | | | | | [address] | | | | | | [phone].[facility]. | | | | | | Delvis [...] [facility] | [address] | [place], [place] | | | [facility] | | [address] | | + + + + + [...] - | | | | | | [facility] | | + +--------+ + + + + + | Specimen | + + | Blood - Blood | + + + + + + + | Performing | Address | City/State/Zipcode | Phone Number | | Organization | | | | + + + + + | [facility] | [address] | [place] [address] | | | [place] | | | | + + + [...] + | [facility] | [address] | [place] [address] | | | [place] | | | [...] [facility] | [address] | [place] [address] | | | SERVICES, CORE | [address] [...] | | | LABORATORY | | | SPANISH | | | SERVICES, | | | [...] the MDRD equation recommended by the | [facility] | | National Kidney Disease Education Program. [...] + + + + + | [facility] | [address] | [place] [address] | | | SERVICES, CORE | [address] | | | + + + + + documented in this encounter Visit Diagnoses + + | Diagnosis | + + | Joint pain Pain in joint, site unspecified | + + documented in this encounter"
--- OUTSIDE RECORDS SUMMARY | ~2019-05-17 | XMS | Encounter Summary ---
Demographics + + + | Address | [address] | | | [place] [address] | + + + | Home Phone [...] Providers + +------+ + | Care Cotton Buyer Name | Role | Phone | + +------+ + | Thee Boss MD | PCP | | + +------+ + Encounter Details +--------+ + + + + | Date | Type | Department | Care Team | Description | +--------+ + + + + | 05/06/ | Hospital | Diagnostic | | | | 2012 | Encounter | Radiology at [facility] | | | | | | [address] | | | | | | Am[place] Chatman Mailcode: | | | | | | [address] Physician's | | | | | | [place], | | | | | | [place] [address] | | | | | | [phone] | | | +--------+ + + + [...] + +--------+ + + + | X-RAY HAND 1 VIEWS | Routin | 05/06/2013 | Joint pain | Results for this | | BILATERAL | e | 3:53 PM | | procedure are in the | | | | PST | | results section. | + +--------+ + + + documented in this encounter Results X-RAY HAND 1 VIEWS BILATERAL (05/06/2013 3:53 [...] | | + +---------+ + + | [facility] DEPARTMENT OF | | | | | RADIOLOGY | | | | + +---------+ + + documented in this encounter Visit Diagnoses + + | Diagnosis | + + | Joint pain Pain in joint, site unspecified | + + documented in this encounter"
--- OUTSIDE RECORDS SUMMARY | ~2019-05-17 | XMS | Encounter Summary ---
Demographics + + + | Address | [address] | | | [place] [address] | + + + | Home Phone | | + + + | Preferred Language | Unknown | + + + | Marital Status | | + + + | Quaker Affiliation | 1077 | + + + | Race | Unknown | + + + | Ethnic Group | Unknown | + + + Author + + + | Author | [facility] | | | and Azana | + + + | Organization | [facility] | | [...] [place], [place] | | | | | [address] | | + + + + + | Helena Doherty | ECON | [place], | | | | | [place] [address] | | + + + + + Care Team Providers + +------+ + | Care Cloth Wire Weaver Name | Role | Phone | + +------+ + | Nathan Luevano DO | PCP | | + +------+ + Encounter Details +--------+ + + + + | Date | Type | Department | Care Team | Description | +--------+ + + + + | 05/09/ | Imaging | [facility] | Provider, | | | 2018 | Exam | [facility] | MD [address] | | | | | IMAGING | [address] | | | | | [phone] | [place] [address] | | +--------+ + + + + [...] | | | | | [place] [address] | | | | | | [phone] | | | | | | | | | | | | Tmr Teacher, [facility] | | +--------+ + + + + documented as of this encounter Procedures + +--------+ + + + | Procedure Name | Priori | Date/Time | Associated Diagnosis | Comments | | | ty | | | | + +--------+ + + + | XR CERVICAL SPINE 6 | Routin | 09/07/2017 | | Results for this | | [place] MORE VWS | e | 12:20 PM | | procedure are in the | | | | PDT | | results section. | + +--------+ + + + documented in this encounter Results XR Cervical Spine 6 or More Vws (09/07/2017 12:20 PM PDT) + + | Specimen | + + | | + + + + + | Narrative | Performed At | + + + | External films for comparison only | [facility] | | | | | No results will be in the chart. | | + + + + +---------+ + + | Performing | Address | City/State/Zipcode | Phone Number | | Organization | | | | + +---------+ + + | [facility] | | | | + +---------+ + + documented in this encounter Visit Diagnoses Not on filedocumented in this encounter"
--- OUTSIDE RECORDS SUMMARY | ~2019-05-17 | XMS | Encounter Summary ---
Demographics + + + | Address | [address] | | | [place] [address] | + + + | Home Phone | | + + + | Preferred Language | Unknown | + + + | Marital Status | | + + + | Adventist Affiliation | 1077 | + + + | Race | Unknown | + + + | Ethnic Group | Unknown | + + + Author + + + | Author | [facility] | | | and Azana | + + + | Organization | [facility] | | [...] [place], [place] | | | | | [address] | | + + + + + | Helena Doherty | ECON | [place], | | | | | [place] [address] | | + + + + + Care Team Providers + +------+ + | Care Authorization Coordinator Name | Role | Phone | + +------+ + | Nathan Luevano DO | PCP | | + +------+ + Reason for Visit + + + | Reason | Comments | + + + | Surgery Appointment | | + + + Encounter Details +--------+ + + + + | Date | Type | Department | Care Team | Description | +--------+ + + + + | 12/21/ | Telephone | [facility] | Agusto Pereira MD | Surgery Appointment | | 2017 | | NEUROSURGERY [address] | [address] | | | | | [address] | [place] [address] | | | | | [place] | [phone] | | | | | [address] | | | | | | [phone] | | | +--------+ + + + [...] [place] | | | | | | [place] [address] | | | | | | [phone] | | | | | | | | | | | | Manager IntegrationNaomi | | +--------+ + + + + documented as of this encounter Visit Diagnoses Not on filedocumented in this encounter"
--- OUTSIDE RECORDS SUMMARY | ~2019-05-17 | XMS | Encounter Summary ---
Demographics + + + | Address | [address] | | | [place] [address] | + + + | Home Phone [...] | Author | [facility] | | | and Azana | + + + | Organization | [facility] | | | and [...] [place], [place] | | | | | [address] | | + + + + + | Helena Doherty | ECON | [place], | | | | | [place] [address] | | + + + + + Care Team Providers + +------+ + | Care Machine Lacer Name | Role | Phone | + [...] | | [address] | [place] [address] | Procedure (Was | | | | [place] | [phone] | scheduled for Pre-op | | | | [address] | | in , diane Grijalva | | | | [phone] | | eKlli womack leaving. | | | | | | [...] | | | | | [place] [address] | | | | | | [phone] | | | | | | | | | | | | Imaging Manager, [facility] | | +--------+ + + + + documented as of this encounter Visit Diagnoses Not on filedocumented in this encounter"
--- OUTSIDE RECORDS SUMMARY | ~2019-05-17 | XMS | Encounter Summary ---
Demographics + + + | Address | [address] | | | [place] [address] | + + + | Home Phone | | + + + | Preferred Language | Unknown | + + + | Marital Status | | + + + | Gnosticist Affiliation | Unknown | + + + [...] Team Providers + +------+ + | Care Registered Nurses Name | Role | Phone | + [...] | 2006 | Visit | [facility] | MD Kemi [address] | Urge Incontinence | | | | [address]ancy [address] | [address] | | | | | [address] | [place], [place] | | | | | [place] | [address] | | | | | [place], [place] | [phone] | | | | | [address] | | | | | | [phone] | | | +--------+---------+ + + + [...] removal of mole to be done in [facility] procedure room after she returns from [facility] signed by Ness Rae at 10/31/2006 5:29 PM PDTdocumented in this encounter Plan of Treatment Not on filedocumented as of this encounter Visit Diagnoses + + | Diagnosis | + + | Dyspareunia | + + | Urge incontinence | + + documented in this encounter
--- OUTSIDE RECORDS SUMMARY | ~2019-05-17 | XMS | Encounter Summary ---
Demographics + + + | Address | [address] | | | [place] [address] | + + + | Home Phone | | + + + | Preferred Language | Unknown | + + + | Marital Status | | + + + | Congregational Affiliation | 1077 | + + + | Race | Unknown | + + + | Ethnic Group | Unknown | + + + Author + + + | Author | [facility] | | | and Azana | + + + | Organization | [facility] | | | and [...] [place], [place] | | | | | [address] | | + + + + + | Helena Doherty | ECON | [place], | | | | | [place] [address] | | + + + + + Care Team Providers + +------+ + | Care Homemaking Rehabilitation Consultant Name | Role | Phone | + [...] | Degenerative | [address] | [place], [place] | | | | | disc | [place] | [address] Phone: | | | | | disease, | [address] | [phone] | | | | | lumbar | Phone: | Fax: | | | | | Lumbar | [phone] | [phone] | | | | | foraminal | Fax: | | | | | | stenosis | [phone] | | | | | | Fibromyalgia [...] Description | +--------+---------+ + + + | 01/17/ | Office | [facility] | [place], | Fibromyalgia | | 2017 | Visit | [facility] THER[facility]Y PT | FABIAN Castillo [address] | (Primary Dx); | | | | OP [address] | [facility], | Sacroiliitis (HCC) | | | | [place] | [place] [address] | | | | | [address] | [phone] | | | | | [phone] | | | | | | | Aiyana Fish S, PT | | | | | | [address] | | | | | | [place] | | | | | | [id number] | | | | | | | [...] encounter Progress Notes Aiyana Fish, PT - 01/17/2017 1:00 PM PDTFormatting of this note might be different fro m the original. [facility] THERAPY PT OP [address] [place] [address] Physical Therapy Daily Treatment Note Date: 01/17/2017 Patient Information Patient Name: Ashly Santiago Date of : 1940 Age: 77 y.o. Encounter Diagnoses Code Name Primary? M79.7 Fibromyalgia Yes M46.1 Sacroiliitis (HCC) Date of Onset: 06/08/2016 Referring Provider: Anna Aponte PA-C Rehab Precautions Flowsheet Row Office Visit from 10/19/2016 in [facility] THER[facility] PT OP Rehab Precautions Precautions None Rehab Learning Style Flowsheet Row Office Visit from 10/19/2016 in [facility] THERAPY PT OP Learning Style Patient's Optimum Learning Style listening, reading, observation, performance of task Start Time: 1309 Stop time: 1405 Duration: 56 minutes Timed Treatment Codes: 56 minutes # of PT Visits to Date: 9 Subjective: Pt reports that she went on a picnic with her daughter yesterday and she sat for a while ta lking while turning her head and this aggravated her neck and her lower back. She is not quach ving any leg pain today. Pain Assessment: Pain Rating Pre Assessment: 4 Pain Rating Post Assessment: 4 Location: neck and low back. No leg pain today. Objective: Myofascial release and positional release therapy: Dural tube mobilization, right knee and right hip, sacrum, pelvic floor, cervical spine and upper thoracic spine Assessment: Good response to treatment. Fascial release resulted in improved mobility in the deep fasc ia of the mid and upper thoracic spine which has a strong pull into the and lower back and sacrum following the session. Plan: Continue with manual therapy and development of home program Electronically signed by: Aiyana Fish, PT, 01/17/2017 14:31 Patient Name: Ashly Real Jack/: 1940/ documented [...] | | | | | [place] [address] | | | | | | [phone] | | | | | | | | | | | | Travel Accommodation InspectorNaomi | | +--------+ + + + [...]
--- OUTSIDE RECORDS SUMMARY | ~2019-05-17 | XMS | Encounter Summary ---
Demographics + + + | Address | [address] | | | [place] [address] | + + + | Home Phone [...] | Author | [facility] | | | and Azana | + + + | Organization | [facility] | [...] [place], [place] | | | | | [address] | | + + + + + | Helena Doherty | ECON | [place], | | | | | [place] [address] | | + + + + + Care Team Providers + +------+ + | Care Care Transition Manager Name | Role | Phone | [...] | Degenerative | [address] | [place], [place] | | | | | disc | [place] | [address] Phone: | | | | | disease, | [address] | [phone] | | | | | lumbar | Phone: | Fax: | | | | | Lumbar | [phone] | [phone] | | | | | foraminal | Fax: | | | | | | stenosis | [phone] | | | | | | Fibromyalgia [...] Description | +--------+---------+ + + + | 11/29/ | Office | [facility] | Fay, | Sacroiliitis (HCC); | | 2016 | Visit | MED CTR THERAPY PT | FABIAN Castillo [address] | Fibromyalgia | | | | OP [address] | [facility], | | | | | [place] | [place] [address] | | | | | [address] | [phone] | | | | | [phone] | | | | | | | Aiyana Fish S, PT | | | | | | [address] | | | | | | [place] | | | | | | [phone] | | | | | | | [...] encounter Progress Notes Aiyana Fish, PT - 11/29/2016 10:30 AM PDTFormatting of this note might be different fro m the original. [facility] CTR THERAPY PT OP [address] [place] [address] Physical Therapy Daily Treatment Note Date: 11/29/2016 Patient Information Patient Name: Ashly Santiago Date of : 1940 Age: 76 y.o. Encounter Diagnoses Code Name Primary? M46.1 Sacroiliitis (HCC) M79.7 Fibromyalgia Date of Onset: 06/08/2016 Referring Provider: Anna Aponte PA-C Rehab Precautions Flowsheet Row Office Visit from 10/19/2016 in [facility] CTR THERAPY PT OP Rehab Precautions Precautions None Rehab Learning Style Flowsheet Row Office Visit from 10/19/2016 in [facility] CTR THERAPY PT OP Learning Style Patient's Optimum Learning Style listening, reading, observation, performance of task Start Time: 1037 Stop time: 1140 Duration: 63 minutes Timed Treatment Codes: 63 minutes # of PT Visits to Date: 5 Subjective: Pt reports that her pain has been less severe in the past couple of weeks. She will still experience some "sharp" pain in her lower back and left leg at times. Her insurance Co has denied back surgery. Dr Pereira has appealed that decision. Pain Assessment: Pain Rating Pre Assessment: 4 Pain Rating Post Assessment: 0 Location: low back. NO leg pain today Objective: Education: Persistent pain education Manual Treatment: Myofascial release and positional release therapy to multiple areas: Dur al tube mobilization, sacrum, left hip, upper and mid-low thoracic spine. Assessment: Good response to treatment. Fascial release resulted in improved mobility in the mid thora cic spine strain pattern with less fascial strain extending into the left low back and hip a nd lower pain level reported to be 0/10 following the session. Plan: Continue with manual therapy and development of home program Electronically signed by: Aiyana Fish, PT, 11/29/2016 15:06 Patient Name: Ashly Santiago/: 1940/ documented in this en counter Plan of Treatment +--------+ + + + + | Date | Type | Specialty | Care Team | Description | +--------+ + + + + | 05/19/ | Hospital | Radiology | Dennys Pineda PA-C | | | 2018 | Encounter | | [address] | | | | | | [address] [place] | | | | | | [place] [address] | | | | | | [phone] | | | | | | | | | | | | Director Global Strategic Publisher SalesNaomi | | +--------+ + + + + documented as of this encounter Visit Diagnoses + + | Diagnosis | + + | Sacroiliitis (HCC) Sacroiliitis, not elsewhere classified | + + | Fibromyalgia Mylagia and myositis, unspecified | + + documented in this encounter
--- OUTSIDE RECORDS SUMMARY | ~2019-05-17 | XMS | Encounter Summary ---
Demographics + + + | Address | [address] | | | [place] [address] | + + + | Home Phone [...] + | Author | [facility] | | | and Azana | + + + | Organization | [facility] | | | and Azana [...] [place], [place] | | | | | [address] | | + + + + + | Helena Doherty | ECON | [place], | | | | | [place] [address] | | + + + + + Care Team Providers + +------+ + | Care Engineering Technical Specialist Name | Role | Phone | [...] | | | Trochanteric | Ave | [address] Phone: | | | | | bursitis, | [place], | [phone] | | | | | right hip | [place] | Fax: | | | | | Fibromyalgia | [address] | [phone] | | | | | Procedures | Phone: | | | | | | PT Noel w/ | [phone] | | | | | | Aiyana | Fax: | | | | | | [place] | [phone] | | +--------+--------+ + + + + Encounter Details +--------+---------+ + + + | Date | Type | Department | Care Team | Description | +--------+---------+ + + + | 05/13/ | Office | [facility] | Schmidtgall, | Neck pain (Primary | | 2018 | Visit | MED CTR THERAPY PT | Sophia Kingsley PA-C | Dx); Trochanteric | | | | OP [address] | [address] | bursitis of both | | | | [place] | [place], [place] | hips; Fibromyalgia | | | | [address] | [address] | | | | | [phone] | [phone] | | | | | | | | | | | | Aiyana Fish S, PT | | | | | | [address] | | | | | | [place] | | | | | | [address] | | | | | | | [...] encounter Progress Notes Aiyana Fish, PT - 05/13/2018 12:00 PM PSTFormatting of this note might be different fro m the original. [facility] CTR THERAPY PT OP [address] [place] [address] Physical Therapy Daily Treatment Note Date: 05/13/2018 Patient Information Patient Name: Ashly Santiago Date of : 1940 Age: 78 y.o. Encounter Diagnoses Code Name Primary? M54.2 Neck pain Yes M70.61, M70.62 Trochanteric bursitis of both hips M79.7 Fibromyalgia Date of Onset: 04/10/2018 Referring Provider: Sophia Bush PA-C Rehab Precautions Office Visit from 04/17/2018 in [facility] CTR THERAPY PT OP Rehab Precautions Precautions None Rehab Learning Style Office Visit from 04/17/2018 in [facility] CTR THERAPY PT OP Office Visit fro m 10/19/2016 in [facility] CTR THERAPY PT OP Learning Style Patient's Optimum Learning Style listening, reading, observation, performance of task lis tening, reading, observation, performance of task Start Time: 1220 Stop time: 1305 Duration: 45 minutes Timed Treatment Codes: 45 minutes # of PT Visits to Date: 3 Subjective: Pt is late today as she thought her appointment was later today. Hip pain is around the il iac crests and radiates into her hip joints when walking "fast and for longer periods of skyler e" Pain Assessment: Objective: Education: review of body mechanics for sitting and use of her lap top which is aggravating her neck pain when she uses it at the table Manual Treatment: Myofascial release and positional release therapy: Dural tube mobilizati on, upper and mid thoracic spine and cervical spine. I recommended she resume the thera-band exercises she was given following her shoulder surg flory using the lightest resistance to start Assessment: Good response to treatment. Fascial release resulted in improved mobility in the cervical spine in all directions and reduced muscle tension in the thoracic paraspinal mm following t he session. Plan: Continue with manual therapy and development of home program Electronically signed by: Aiyana Fish, PT, 05/13/2018 14:16 Patient Name: Ashly Real Santiago/: 1940/ documented [...] | | | | | [address] [facility] | | | | | | [place] [address] | | | | | | [phone] | | | | | | | | | | | | Coke Still CleanerNaomi | | +--------+ + + + + documented as of this encounter Visit Diagnoses + + | Diagnosis | + + | Neck pain - Primary Cervicalgia | + + | Trochanteric bursitis of both hips Enthesopathy of hip region | + + | Fibromyalgia Mylagia and myositis, unspecified | + + documented in this encounter
--- OUTSIDE RECORDS SUMMARY | ~2019-05-17 | XMS | Encounter Summary ---
Demographics + + + | Address | [address] | | | [place] [address] | + + + | Home Phone | | + + + | Preferred Language | Unknown | + + + | Marital Status | | + + + | Jehovah'S Witness Affiliation | Unknown | + + + | Race | White | + + + | Ethnic Group | Not or | + + + Author + + + | Author | [facility] | + + + | Organization | [facility] | + + + | Address | Unknown | + + + | Phone | Unavailable | + + + Support + + +---------+ + | Name | Relationship | Address | Phone | + + +---------+ + | Alon Santiago | ECON | Unknown | | + + +---------+ + Care Team Providers + +------+ + | Care Edge Blacker Name | Role | Phone | + [...] | arthritis(71 | Sophia Kingsley, | [address] | | | | | 4.0) ([facility]) | [place] [address] | Nael [place] | | | | | Myalgia and | [address] | [address] [place], | | | | | myositis, | [place], | [place] | | | | | unspecified | [place] [address] | [address] | | | | | Procedures | Phone: | Phone: | | | | | [place] | [phone] | [phone] | | | | | OFFICE/OUTPT | Fax: | Fax: | | | | | | [phone] | [phone] | | | | | VISIT,EST,LE | | | | | | | PASQUALE III | | | +--------+--------+ + + + + Encounter Details +--------+---------+ + + + | Date | Type | Department | Care Team | Description | +--------+---------+ + + + | 06/15/ | Office | Rheumatology at | Tavia Zuniga | Fibromyalgia | | 2015 | Visit | Physicians KALA Fung [address] [facility] | (Primary Dx) | | | | [address] | Nael [place] | | | | | Amara Chatman Mailcode: | [place], [place] | | | | | [address] Physician's | [address] | | | | | [place], | [phone] | | | | | [place] [address] | | | | | | [phone] | | | +--------+---------+ + + + [...] + + + | Blood Pressure | 144/63 | 06/15/2015 10:41 AM | | | | | PST | | + + + + + | Pulse | 83 | 06/15/2015 10:41 AM | | | | | PST [...] + + + + | Weight | 87.5 kg (193 lb) | 06/15/2015 10:41 AM | | | | | PST | | + + + + + | Height | - | - | | + + + + + | Body Mass Index | 32.12 | 09/08/2014 10:52 AM | | | | | PDT | | + + + + + documented in this encounter Patient Instructions Patient Instructions Tavia Zuniga FNP - 06/15/2015 11:21 AM PSTFor low back muscul ar spasm: Recommend: 1. Warm moist heat 2. Stretching 3. Home TENS unit 4. Local PT for back w/ multimodal approach US and massage documented in this encounter Progress Notes Tavia Zuniga FNP - 06/15/2015 11:03 AM PSTFormatting of this note might be differe nt from the original. Progress Note Clinic: Rheumatology Reason for follow-up: Chief Complaint Patient presents with Fibromyalgia Follow-up visit Ms. aSntiago was last seen September 08, 2014. Had rotator cuff surgery 2 mo ago and then fell. Her focus has been this shoulder pain and low back energy so she is hesitant to comment on her FMS. Had w/d from meds post surgical- only used dilaudid 10d. Has new PCP. Prior to injury and surgery thinks she was doing well. Concerned regarding swollen ankles and hammer toes causing her more pain. ROS: Please see scanned intake document. Detail reviewed face to face w/ patient. Relevant ROS detailed in HPI. Past Medical History: Past Medical History Diagnosis Date Fibromyalgia Arthropathy, unspecified, site unspecified Other general symptoms(780.99) IBS (irritable bowel syndrome) HTN (hypertension), benign Endometriosis Melanoma (HCC) Medications: Current Outpatient Prescriptions Medication Sig Ascorbic Acid (VITAMIN C) 500 mg OR CHEW 500 mg twice daily BIOTIN ORAL Take 1,000 mg by mouth [...] #161 (ESTROVEN PM ORAL) Take by mouth. ranitidine (ZANTAC) 150 mg Oral tablet Take 150 mg by mouth as needed. traMADol 50 mg oral tablet Take 50 mg by mouth two times daily. traZODone 50 mg oral tablet Take 50 mg by mouth once daily at bedtime. VIT A/VIT C/VIT E/ZINC/COPPER (PRESERVISION AREDS ORAL) Take by mouth. No current facility-administered medications for this visit. Allergies: Hydromorphone; Morphine; Adhesive tape; Bextra; Cardizem; Celexa; Codeine; Cymba lta; Imdur; Lexapro; Nexium; and Oxycodone Social History: Ashly reports that she has never smoked. She does not have any smokeless tobacco history on file. Family History: family history includes Additional Family History in her father (Parkinson' s); Arthritis in her sister; Heart Disease in her mother; and Stroke in her mother. Physical Exam: BP 144/63 | Pulse 83 | Wt 87.544 kg (193 lb) | BMI 32.12 kg/(m^2) Pain Score: 9 Rapid 3 MHAQ: 5.3 (06/15/15 1000) PAIN LEVEL: 9 (06/15/15 1000) GLOBAL ASSESSMENT: 9 (06/15/15 1000) RAPID 3: 7.77 (06/15/15 1000) Gen: Well nourished, well developed, in NAD HEENT: unremarkable Neck supple Ext: No clubbing, cyanosis, or edema M/S: right arm in brace- unable to move; no synovitis or red, warm joints Skin: no abnormalities Neuro: normal Labs: Lab [...] Results Component Value Date ESR 37* 06/15/2015 Impression: This is a 75 y.o. female here for follow up of fibromyalgia (exacerbated by sh oulder pain s/p rotator cuff repair and acute LBP d/t fall. I reviewed the patient s questionnaire which included more than 10 review of systems, ans wered all questions raised, and provided counseling and education. Functional Assessment: [facility] 09/08/2014 06/14/2015 06/15/2015 RAPID 3 5.67 7.17 7.77 Recommendations: 1. Recommend physical therapy for acute low back pain. 2. Massage and the application of topical meds. 3. Encouraged regarding warm moist heat and use of a TENS unit. 4. Though I didn't schedule Ms. Santiago for f/u, I would be willing to see her in the future if needed. [facility] [address] [place] [address] Mailcode: Op09 [facility], [address] [facility] [address] Display Progress Note in MyChart: No documented in t his encounter Plan of Treatment Not on filedocumented as of this encounter Visit Diagnoses + + | Diagnosis | + + | Fibromyalgia - Primary Mylagia and myositis, unspecified | + + documented in this encounter"
--- OUTSIDE RECORDS SUMMARY | ~2019-05-17 | XMS | Encounter Summary ---
Demographics + + + | Address | [address] | | | [place] [address] | + + + | Home Phone | | + + + | Preferred Language | Unknown | + + + | Marital Status | | + + + | Mandaeism Affiliation | Unknown | + + + [...] Team Providers + +------+ + | Care Digital Campaign Specialist Name | Role | Phone | [...] [address] | | | | | 4.0) ([facility]) | [place] [address] | Nael [place] | | | | | Myalgia and | [address] | Rd [place], | | | | | myositis, | [place], | [place] | | | | | unspecified | [place] [address] | [address] | | | | | | Phone: | Phone: | | | | | | [phone] | [phone] | | | | | | Fax: | Fax: | | | | | | [phone] | [phone] | +--------+--------+ + + + + Encounter Details +--------+---------+ + + + | Date | Type | Department | Care Team | Description | +--------+---------+ + + + | 12/22/ | Office | Rheumatology at | Rosas Lucia MD | Rheumatoid arthritis | | 2013 | Visit | Physicians [place] | [address] [facility] | (Primary Dx) | | | | [address] | [address] [place], | | | | | Celina Chatman Mailcode: | [place] [address] | | | | | [address] Physician's | [phone] | | | | | [place], [facility] Floor | | | | | | [place], [place] | | | | | | [address] | | | | | | [phone] | | | +--------+---------+ + + + [...] by: Tavia Linda, KALA [address] [place] [facility] [address] fax: [phone] CC: Chief Complaint Patient presents with Follow-up [...] labs but Dr Shelton, who was her Mining Detail Draftsperson, was not sure if the symptoms were [...] of systems. I s pent 20 minutes [id number] with the patient with over 50% in [...] | + + + + + | [facility] | [address] | [place] [address] | | | SERVICES, CORE | CELINA [...] | | | LABORATORY | | | [facility] | | | SERVICES, | | | [...] [facility] | [address] | [place] [address] | | | SERVICES, CORE | [address] | | | + + + + + documented in this encounter Visit Diagnoses + + | Diagnosis | + + | Rheumatoid arthritis - Primary | + + documented in this encounter"
--- OUTSIDE RECORDS SUMMARY | ~2019-05-17 | XMS | Encounter Summary ---
Demographics + + + | Address | [address] | | | [place] [address] | + + + | Home Phone [...] + | Author | [facility] | | | and Azana | + + + | Organization | [facility] | | [...] [place], [place] | | | | | [address] | | + + + + + | Helena Doherty | ECON | [place], | | | | | [place] [address] | | + + + + + Care Team Providers + +------+ + | Care Human Resources Administrator Name | Role | Phone | [...] + + | 10/07/ | Telephone | [facility] | Andrew Miranda, | Kemar | | 2019 | | PHYSIATRY [address] | PA-C [address] | | | | | [place], | [address] [place] | | | | | [place] [address] | [place] [address] | | | | | [phone] | [phone] | | | | | | | [...] | | | | | [place] [address] | | | | | | [phone] | | | | | | | | | | | | Quality Control Lab TechNaomi | | +--------+ + + + + documented as of this encounter Visit Diagnoses Not on filedocumented in this encounter"
--- OUTSIDE RECORDS SUMMARY | ~2019-05-17 | XMS | Encounter Summary ---
Demographics + + + | Address | [address] | | | [place] [address] | + + + | Home Phone | | + + + | Preferred Language | Unknown | + + + | Marital Status | | + + + | Advent Affiliation | 1077 | + + + | Race | Unknown | + + + | Ethnic Group | Unknown | + + + Author + + + | Author | [facility] | | | and [place] | + + + | Organization | [facility] | | | and Azana [...] [place], [place] | | | | | [address] | | + + + + + | Helena Doherty | ECON | [place], | | | | | [place] [address] | | + + + + + Care Team Providers + +------+ + | Care Air Carrier Inspector Name | Role | Phone | + +------+ + | Nathan Luevano DO | PCP | | + +------+ + Encounter Details +--------+ + + + + | Date | Type | Department | Care Team | Description | +--------+ + + + + | 02/14/ | Anesthesia | [facility] | David Hammonds, | | | 2017 | Event | [facility] | DO [address] | | | | | [address] | [place], [place] | | | | | [place], [place] | [address] | | | | | [address] | | | | | | [phone] | Jerry Gómez, | | | | | | Medical Student | | +--------+ + + + + Anesthesia Record + + + + + | Procedure Name | Responsible | Anesthesia Start | Anesthesia Stop Time | | | Anesthesiologist | Time | | + + + + + | L4-5 Lateral | David Hammonds DO | 02/14/17 0729 | 02/14/17 1010 | | Anterior Interbody | | | | | Fusion, L5-S1 | | | | | Transforaminal | | | | | Lumbar Interbody | | | | | Fusion (Anterior | | | | | Back) | | | | + + + + + +----+---+ + + | Da | T | Event | Comment | | te | i | | | | | m | | | | | e | | | +----+---+ + + | 08 | 0 | | | | /2 | 7 | | | | 3/ | 2 | | | | 20 | 2 | | | | 17 | | | | +----+---+ + + | | 0 | An Checkout | Pre-use anesthesia machine/equipment checkout. | | | 7 | | | | | 2 | | | | | 9 | | | +----+---+ + + | | 0 | An Start | Reassessment prior to anesthesia induction/procedure. | | | 7 | | | | | 2 | | | | | 9 | | | +----+---+ + + | | 0 | Preoxygenat | | | | 7 | ed | | | | 3 | | | | | 0 | | | +----+---+ + + | | 0 | Pre-Procedu | | | | 7 | ral Timeout | | | | 3 | Completed | | | | 1 | | | +----+---+ + + | | 0 | An | | | | 7 | Induction | | | | 3 | | | | | 4 | | | +----+---+ + + | | 0 | An | | | | 7 | Intubation | | | | 3 | | | | | 5 | | | +----+---+ + + | | 0 | AN Bite | | | | 7 | Block | | | | 3 | | | | | 5 | | | +----+---+ + + | | 0 | Antibiotic | | | | 7 | Given | | | | 4 | | | | | 0 | | | +----+---+ + + | | 0 | First | | | | 7 | Inc/Proc St | | | | 4 | | | | | 9 | | | +----+---+ + + | | 0 | Rolfe | | | | 8 | 43-degrees | | | | 1 | | | | | 4 | | | +----+---+ + + | | 0 | AN No | TOF 4/4 with sustained tetanus. | | | 8 | Residual | | | | 1 | NMB | | | | 4 | | | +----+---+ + + | | 1 | Breathing | | | | 0 | Spontaneous | | | | 0 | ly | | | | 0 | | | +----+---+ + + | | 1 | Oropharynx | | | | 0 | Suctioned | | | | 0 | | | | | 3 | | | +----+---+ + + | | 1 | an stop | | | | 0 | data | | | | 0 | | | | | 5 | | | +----+---+ + + | | 1 | An Stop | Patient handed off to recovery nurse. | | | 1 | | | | | 0 | | | +----+---+ + + +------+ | Meds | +------+ + + + | Name | Total | + + + | fentaNYL injection (2 mL) | 100 mcg | + + + | propofol (DIPRIVAN) injection | 150 mg | | (bolus) (20 mL) | | + + + | lidocaine 2% | 80 mg | + + + | succinylcholine | 100 mg | + + + | ondansetron | 4 mg | + + + | dexamethasone | 10 mg | + + + | HYDROmorphone | 2 mg | + + + | ePHEDrine | 10 mg | + + + | magnesium sulfate injection 500 | 2 g | | mg/mL (vial) | | + + + | dexmedetomidine (Bolus) | 50 mcg | + + + | ketamine | 75 mg | + + + | Phenylephrine 10mg/mL VIAL | 2,416.8 mcg | + + + | lactated ringers (LR) infusion | 1,200 mL | + + + + + | Name | + + | N2O Flow Rate (L/Min) | + + | O2 Flow Rate (L/Min) | + + | Insp O2 | + + | Exp SEV | + + | Air Flow Rate (L/Min) | + + + + | No blood administrations on file. | + + +--------+ + + + | Type | Details | Placement | Removal | +--------+ + + + | Periph | 02/13/17; 1420; Left; | 02/13/17 1420 by | 02/17/17 1730 by | | eral | Antecubital; [id number] | Audra Palmer RN | Marly Ordonez | | IV | catheter system; 18 gauge, 1 06/28 | | [facility] | | | in length; distraction, | | | | | intradermal injection, tolerated | | | | | well; no longer indicated; short | | | | | term use; 02/17/17; 1730 | | | +--------+ + + + | Airway | Placement Date: 02/14/17; | 02/14/17 0735 by | 02/14/17 1008 by | | | Placement Time: 734 (created via | David Hammonds DO | Allie Sams RN | | | procedure documentation); Mask | | | | | Ventilation: EZ; Airway Grade: | | | | | 2b; Successful Technique: video | | | | | scope; Laryngoscope Blade Size: | | | | | 4; Attempts: 1; Airway Type: | | | | | endotracheal; Size: 7; Airway | | | | | Tube Secured At: 22; Trauma: | | | | | none; Other Equipment: bougie; | | | | | Placement Check: exhaled CO2 | | | | | detection device, bilateral chest | | | | | rise, suprasternal notch | | | | | palpation; Removal: per protocol, | | | | | other (see comment) | | | | | (anesthesia); Removal Date: | | | | | 02/14/17; Removal Time: 100; | | | | | Additional Comments: Poor view on | | | | | first look so we used bougie | | | +--------+ + + + | Read | 02/14/17; 0806; Bilateral; back; | 02/14/17 0806 by | 02/17/17 1730 by | | only - | expected removal post discharge; | Aubrey Hernandez RN | [facility] | | | 02/17/17; 1730 | | [facility] | | Incisi | | | | | on | | | | +--------+ + + + | Read | 02/14/17; 0806; Left; back; | 02/14/17 08 by | 02/17/171729 by | | only - | expected removal post discharge; | Aubrey Hernandez RN | [facility]done[facility] | | | 02/17/17; 1729 | | [facility] | | Incisi | | | | | on | | | | +--------+ + + + | Drain/ | 02/14/17; 0953; #1; posterior; | 02/14/17 0953 by | 02/17/171729 by | | Device | back; collapsible closed device; | Unique Petersen RN | [facility] | | Site | 10 fr round drain; tip intact; | | [facility] | | | short term use; 02/17/17; 1730 | | | +--------+ + + + [...] | | | | | | [place] [address] | | | | | | [phone] | | | | | | | | | | | | Certified Hyperbaric TechnicianNaomi | | +--------+ + + + + documented as of this encounter Procedures + +--------+ + + + | Procedure Name | Priori | Date/Time | Associated Diagnosis | Comments | | | ty | | | | + +--------+ + + + | ANE AIRWAY NOTE | Routin | 02/14/2017 | | Results for this | | | e | 8:18 AM | | procedure are in the | | | | PDT | | results section. | + +--------+ + + + documented in this encounter Results Anesthesia Airway Note (02/14/2017 8:18 AM PDT) + + + | Narrative | Performed At | + + + | David Hammonds DO 02/14/2017 8:18 Anesthesia | | | Airway Placement 02/14/2017 7:35 Preprocedure check: patient | | | identified, oxygen, airway assessed, suction, airway equipment | | | checked and patient reassessment prior to induction Mask ventilation: | | | easy Successful technique: videoscope Laryngoscope blade size: | | | 4 Airway grade: 2b (Only posterior extremity of glottis seen or | | | only arytenoid cartilages) Other equipment: bougie Attempts: 1 | | | Airway type: endotracheal Size: 7 Cuffed: cuffed Route, reference | | | point: right side of mouth Tube depth: 22 cm Tube secured with: | | | adhesive tape Trauma: none Tube placement verification: bilateral | | | chest rise, carbon dioxide detection and suprasternal notch | | | palpation Performing provider: DAVID HAMMONDS | | | Comments: Poor view on first look so we used bougie Electronically | | | Signed by: David Hammonds DO | | | ESig date/time: 02/14/2017 8:17 | | + + + + + | Procedure Note | + + | David Hammonds DO - 02/14/2017 8:17 AM PDT Anesthesia Airway Placement02/14/2017 | | 7:35Preprocedure check: patient identified, oxygen, airway assessed, suction, airway | | equipment checked and patient reassessment prior to inductionMask ventilation: | | easySuccessful technique: videoscopeLaryngoscope blade size: 4 Airway grade: 2b (Only | | posterior extremity of glottis seen or only arytenoid cartilages)Other equipment: | | bougieAttempts: 1Airway type: endotrachealSize: 7Cuffed: cuffedRoute, reference point: | | right side of mouthTube depth: 22 cmTube secured with: adhesive tapeTrauma: noneTube | | placement verification: bilateral chest rise, carbon dioxide detection and suprasternal | | notch palpationPerforming provider: DAVID HAMMONDSComments: Poor view on | | first look so we used bougieElectronically Signed by: David Hammonds DO | | ESig date/time: 02/14/2017 8:17 | |Size: 7 | |Cuffed: cuffed | |Route, reference point: right side of mouth | |Tube depth: 22 cm | |Tube secured with: adhesive tape | |Trauma: none | |Tube placement verification: bilateral chest rise, carbon dioxide detection and suprasterna l notch palpation | |Performing provider: DAVID HAMMONDS | | | |Comments: Poor view on first look so we used bougie | | | |Electronically Signed by: David Hammonds DO ESig date/time : 02/14/2017 8:17 | | | + + documented in this encounter Visit Diagnoses Not on filedocumented in this encounter Administered Medications + +--------+ +-------+------+------+ | Medication Order | MAR | Action | Dose | Rate | Site | | | Action | Date | | | | + +--------+ +-------+------+------+ | dexamethasone (DECADRON) 10 | Given | 02/15/20 | 10 mg | | | | mg/mL injection Intravenous, | | 17 7:34 | | | | | PRN, Starting 02/14/17 at | | AM PDT | | | | | 0734, Anesthesia Intra-op | | | | | | + +--------+ +-------+------+------+ +---+---+ | | | +---+---+ + +-------+ +--------+---+---+ | dexmedetomidine (PRECEDEX) in | Given | 02/15/20 | 50 mcg | | | | sodium chloride bolus infusion | | 17 8:04 | | | | | Intravenous, PRN, Starting Wed | | AM PDT | | | | | 02/14/17 at 0804, Anesthesia | | | | | | | Intra-op | | | | | | + +-------+ +--------+---+---+ +---+---+ | | | +---+---+ + +-------+ +-------+---+---+ | ePHEDrine 50 mg/mL injection | Given | 02/15/20 | 10 mg | | | | PRN, Starting 02/14/17 at | | 17 8:39 | | | | | 0839, Anesthesia Intra-op | | AM PDT | | | | + +-------+ +-------+---+---+ +---+---+ | | | +---+---+ + +-------+ +--------+---+---+ | fentaNYL (PF) injection | Given | 02/15/20 | 50 mcg | | | | Intravenous, PRN, Pain, Starting | | 17 7:40 | | | | | 02/14/17 at 0733, Anesthesia | | AM PDT | | | | | Intra-op | | | | | | + +-------+ +--------+---+---+ +-------+ +--------+---+---+ | Given | 02/15/20 | 50 mcg | | | | | 17 7:33 | | | | | | AM PDT | | | | +-------+ +--------+---+---+ +---+---+ | | | +---+---+ + +-------+ +--------+---+---+ | HYDROmorphone (DILAUDID) 2 | Given | 02/15/20 | 0.2 mg | | | | mg/mL injection Intravenous, | | 17 9:45 | | | | | PRN, Pain, Starting 02/14/17 | | AM PDT | | | | | at 0754, Anesthesia Intra-op | | | | | | + +-------+ +--------+---+---+ +-------+ +--------+---+---+ | Given | 02/15/20 | 0.4 mg | | | | | 17 9:44 | | | | | | AM PDT | | | | +-------+ +--------+---+---+ | Given | 02/15/20 | 0.4 mg | | | | | 17 8:42 | | | | | | AM PDT | | | | +-------+ +--------+---+---+ +---+---+ | | | +---+---+ + +-------+ +-------+---+---+ | ketamine 50 mg/mL injection | Given | 02/15/20 | 25 mg | | | | PRN, Starting Sun02/14/17 at | | 17 8:13 | | | | | 0748, Anesthesia Intra-op | | AM PDT | | | | + +-------+ +-------+---+---+ +-------+ +-------+---+---+ | Given | 02/15/20 | 50 mg | | | | | 17 7:48 | | | | | | AM PDT | | | | +-------+ +-------+---+---+ +---+---+ | | | +---+---+ + +---------+ +---+---+---+ | lactated ringers (LR) infusion | New Bag | 02/15/20 | | | | | at 100 mL/hr, Intravenous, | | 17 7:26 | | | | | CONTINUOUS, Starting Sun02/14/17 | | AM PDT | | | | | at 0700, Pre-op | | | | | | + +---------+ +---+---+---+ +---+---+ | | | +---+---+ + +-------+ +-------+---+---+ | lidocaine (PF) 2% injection | Given | 02/15/20 | 80 mg | | | | Intravenous, PRN, Starting Wed | | 17 7:34 | | | | | 02/14/17 at 0734, Anesthesia | | AM PDT | | | | | Intra-op | | | | | | + +-------+ +-------+---+---+ +---+---+ | | | +---+---+ + +-------+ +-----+---+---+ | magnesium sulfate 500 mg/mL | Given | 02/15/20 | 2 g | | | | injection PRN, Starting Wed | | 17 8:04 | | | | | 02/14/17 at 0804, Anesthesia | | AM PDT | | | | | Intra-op | | | | | | + +-------+ +-----+---+---+ +---+---+ | | | +---+---+ + +-------+ +------+---+---+ | ondansetron (ZOFRAN) injection | Given | 02/15/20 | 4 mg | | | | Intravenous, PRN, Nausea, | | 17 7:34 | | | | | Vomiting, Starting Sun02/14/17 at | | AM PDT | | | | | 0734, Anesthesia Intra-op | | | | | | + +-------+ +------+---+---+ +---+---+ | | | +---+---+ + + + + +-------+---+ | phenylephrine (FEDE-SYNEPHRINE) | Rate/Dos | 02/15/20 | 0.3 | 0.2 | | | 10 mg/mL injection Intravenous, | e Change | 17 9:05 | mcg/kg/m | mL/hr | | | CONTINUOUS PRN, Starting Sun | | AM PDT | in | | | | 02/14/17 at 0847, Anesthesia | | | | | | | Intra-op | | | | | | + + + + +-------+---+ +---------+ + +-------+---+ | New Bag | 02/15/20 | 0.5 | 0.3 | | | | 17 8:47 | mcg/kg/m | mL/hr | | | | AM PDT | in | | | +---------+ + +-------+---+ +---+---+ | | | +---+---+ + +-------+ +--------+---+---+ | propofol (DIPRIVAN) injection | Given | 02/15/20 | 150 mg | | | | Intravenous, PRN, Starting Wed | | 17 7:34 | | | | | 02/14/17 at 0734, Anesthesia | | AM PDT | | | | | Intra-op | | | | | | + +-------+ +--------+---+---+ +---+---+ | | | +---+---+ + +-------+ +--------+---+---+ | succinylcholine (ANECTINE) | Given | 02/15/20 | 100 mg | | | | injection Intravenous, PRN, | | 17 7:34 | | | | | Starting 02/14/17 at 0734, | | AM PDT | | | | | Anesthesia Intra-op | | | | | | + +-------+ +--------+---+---+ +---+---+ | | | +---+---+ documented in this encounter"
--- OUTSIDE RECORDS SUMMARY | ~2019-05-17 | XMS | Encounter Summary ---
Demographics + + + | Address | [address] | | | [place] [address] | + + + | Home Phone | | + + + | Preferred Language | Unknown | + + + | Marital Status | | + + + | Taoist Affiliation | [id number] | + + + | Race | Unknown | + + + | Ethnic Group | Unknown | + + + Author + + + | Author | [facility] | | | and Azana | + + + | Organization | [facility] [...] [place], [place] | | | | | [address] | | + + + + + | Helena Doherty | ECON | [place], | | | | | [place] [address] | | + + + + + Care Team Providers + +------+ + | Care Basket Weaver Name | Role | Phone | [...] | | Degenerative | [address] | [place] | | | | | disc | [place] | [address] Phone: | | | | | disease, | [address] | [phone] | | | | | lumbar | Phone: | Fax: | | | | | Lumbar | [phone] | [phone] | | | | | foraminal | Fax: | | | | | | stenosis | [phone] | | | | | | Fibromyalgia [...] + + + | Back Pain | low back pain radiating down left leg | + + + | Tingling | left leg and toes | + + + Evaluate & Treat (Routine) +--------+--------+ + + + + | Status | Reason | Specialty | Diagnoses / | Referred By | Referred To | | | | | Procedures | Contact | Contact | +--------+--------+ + + + + | Closed | | Physical | Diagnoses | | Kirit, | | | | Medicine and | Lumbar | Eleazar, | Osman Price MD | | | | Rehabilitatio | radiculopath | Sophia Kingsley, | [address] | | | | n | y Other | [address] | [address] [place] | | | | | idiopathic | [address] | [place] | | | | | scoliosis, | Ave | [address] Phone: | | | | | lumbar | [place], | [phone] | | | | | region | [place] | Fax: | | | | | | [address] | [phone] | | | | | | Phone: | | | | | | | [phone] | | | | | | | Fax: | | | | | | | [phone] | | +--------+--------+ + + + + Encounter Details +--------+---------+ + + + | Date | Type | Department | Care Team | Description | +--------+---------+ + + + | 08/30/ | Office | [facility] | Fay, | Lumbar radiculopathy | | 2017 | Visit | PHYSIATRY [address] | [place] [address] | (Primary Dx); | | | | [address] [place], | [place], | DEGENERATIVE DISC | | | | [place] [address] | [place] [address] | DISEASE, LUMBAR | | | | [phone] | [phone] | SPINE; 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; | | | | | | Fibromyalgia [...] + + + | Blood Pressure | 156/85 | 08/30/2016 10:13 AM | | | | | PST | | + + + + + | Pulse | 71 | 08/30/2016 10:13 AM | | | | | PST [...] Weight | 90.7 kg (200 lb) | 08/30/2016 10:13 AM | | | | | PST | | + + + + + | Height | 165.1 cm (5' 5") | 08/30/2016 10:13 AM | | | | | PST | | + + + + + | Body Mass Index | 33.28 | 08/30/2016 10:13 AM | | | | | PST | | + + + + + documented in this encounter Patient Instructions Patient Instructions Anna Aponte PA-C - 08/30/2016 10:41 AM PST1) Epidural injecti on with Dr. Beth targeting the left L5 nerve root Foraminal Stenosis/Radicular Pain: Foraminal stenosis is a narrowing of the spinal foramen, the hole through which passes a s monie nerve as it exits the spine. It is usually a form of degenerative spine disease which occurs slowly over time with wear and tear of the spinal column. Arthritic changes of the s pine, a herniated discs, soft tissue swelling and bony growth can all impinge on the formal foramen and compress the nerve. Because the narrowing (stenosis) of the foramen pinches a nerve, the primary symptoms relat ed to this disorder is directly related to that nerve which is affected. This obviously vari es depending on which foramina are involved. The pinched nerve can lead to basically two cl asses of symptoms. Symptoms include pain in the distribution of that nerve as well as numbne ss, tingling and or weakness can occur. Steroids are a very strong anti-inflammatory, this helps reduce pain by reducing swelling. Complications of steroids are bleeding, infection, and an increase of blood sugars if you are diabetic. custodial risk can lead to osteoporosis which is why we limited the number of injections to 3 times per year. With an epidural injection, the nerve root that comes out of the spine and travels down your leg is targeted. The procedure is about 20 minutes long . You will lie on your back while x-rays are taken. Once the region is marked, it is numbe d and then injected with steroids. Degenerative Disc Disease (DDD): Degenerative Disc Disease is a term used to describe normal wear and tear of the spine sue t occurs with age. The discs between the vertebras (bones) are made of fluid and cartilage that allows you to flex, bend, and twist, they also absorbs shock. Throughout the years, th jennie discs can become flattened and the space between your vertebras become closer together. This can cause disc herniation, spinal stenosis, and arthritis, along with other complicati ons. Follow-up at the hospital thirty minutes before [...] of the procedure you must provide a stunt driver to take you home. For all procedur es it is recommended that someone else drive you home. documented in this encounter Progress Notes Anna Aponte PA-C - 08/30/2016 10:13 AM PSTFormatting of this note might be differe nt from the original. CHIEF COMPLAINT: Chief Complaint Patient presents with Back Pain low back pain radiating down left leg Tingling left leg and toes HISTORY OF PRESENT ILLNESS: The patient is a 76 y.o. female being seen today for complaint s of low back pain with radiation into the left lower extremity that began in May from no known reason. She started having pain to the left low back and it gradually worsened to the point she has pain to the left knee with tingling from the knee down to the foot. A lef t trochanteric bursa injection was tried which worsened her pain, a left sacroiliac joint in jection was done 08/01/2015 which gave her no relief of her symptoms. Since the symptoms began, she has noticed that symptoms have been chronic and stable. She d escribes the pain as a aching, sharp and shooting feeling. She rates the pain as severe. Her symptoms worsen with standing, walking. Her symptoms improve with rest. The patient also describes leg symptoms that occur on left side. The leg symptoms account for greater than or equal to 75% of her symptoms. The leg symptoms are constant and the sym ptoms travels from the L5/S1 region following the L5 dermatome. The patient does describe numbness of the lower left leg. She does report weakness of the left leg. She does not have bowel and bladder dysfunction. She does not have saddle anes thesia. Treatments for these complaints have included previous trail of trochanteric bursa injectio n, left sacroiliac joint injection, use of gabapentin which helps her sleep but does not hel p improve the pain, massage therapy, NSAIDS. Patient's medications, allergies, past medical, surgical, social and family histories were reviewed and updated as appropriate. PAST MEDICAL HISTORY: Past Medical History Diagnosis Date Chronic pain IMPAIRED VISION Leg cramps Cervical radiculopathy GERD (gastroesophageal reflux disease) Cough Lipoma Diverticulosis Abdominal pain Precordial pain Hypertension Depression Incontinence of urine Displacement of lumbar intervertebral disc Hypercholesterolemia Sacroiliitis (HCC) 09/04/2012 Osteoarthrosis Rheumatoid arthritis(714.0) Intervertebral disc disorder with radiculopathy of lumbar [...] Bilateral 1996 [facility] Hysterectomy, total abdominal 1972 [place] Appendectomy 1960 [place] Tonsillectomy [address], [place] Colonoscopy 2003 [facility] Bunionectomy 04/10/2007 [facility] Bunion; Dr. Db Berrios Perineal skin bridge 02/2009 Electrocardiogram 05/19/2009 Dr. Boss Egd and colonoscopy 07/06/2009 [facility] Dr. Jc Electrocardiogram 08/12/2009 Dr. Radha Stafford; [facility] [place] Endoscopy 07/07/2011 [facility]; Dr. Marquez Finger trigger release Right 05/28/2014 Middle finger; Dr. Donta Agarwal Rotator cuff repair Right 04/20/2015 Dr. Jesus Nasal septum surgery 06/06/2016 Dr. Lindsey; [facility] CURRENT MEDICATIONS: Current Outpatient Prescriptions Medication Sig [...] capsule Take 1,000 mg by mouth Daily. gabapentin (NEURONTIN) 300 mg capsule Take 300 mg by mouth nightly. Kepnmuurdrw-Seqcrsoum-Lfd C-Mn (GLUCOSAMINE CHONDR 1500 COMPLX PO) Take 1 capsule by mo uth 2 times daily. HYDROcodone-acetaminophen (NORCO) 7.5-325 mg per tablet Take 1 tablet by mouth every 6 hours as needed for Pain. hydroxychloroquine (PLAQUENIL) 200 mg tablet Take 200 [...] Magnesium Nausea Only Hydromorphone Nausea Only Isosorbide Nausea Only and Other (See Comments) Headache, Dizziness Isosorbide Mononitrate Nausea Only and Other (See [...] RHEUMATOLOGIC:+ joint pain/arthritis, +Rheumatoid Arthritis PHYSICAL EXAMINATION: Filed Vitals: 08/30/16 1013 BP: 156/85 Pulse: 71 PainSc: 10 - Worst pain ever PainLoc: Back Body mass index is 33.28 kg/(m^2). GENERAL: The patient is well developed and [...] has no apparent deficits with short or residential memory. She has appropriate fund of knowledge Cranial nerves 2-12 appear grossly intact. Sensory exam does show diminished sensation to light touch in the left lower extremities. REFLEX: RIGHT LEFT PATELLAR 2+ 2+ ACHILLES 2+ 2+ MUSCULOSKELETAL There is no tenderness in the midline of the cervical or thoracic spine. T here is no major palpable deformity of the spine. Straight leg raise and slump-sit are positive on the left. Randell's maneuver and impingem ent testing were negative for any groin pain. There was tenderness to palpation over the g reater trochanters, none to the sacral sulci. The patient localized the majority of the sharmila n to the L5/S1 region and down the left leg following the L5 dermatome. Lumbar facet loadin g was negative. Strength testing showed 5/5 strength throughout the lower extremities, with 4/5 strength to the left dorsiflexor. The patient was able to heel and toe walk without di fficulty but heel walking increased her pain. There was no redness, effusion, warmth or mack nt line tenderness in the knees or ankles. [...] stenosis, most likely responsible for her pain. ASSESSMENT: 1. Lumbar radiculopathy 2. DEGENERATIVE DISC DISEASE, LUMBAR SPINE 3. Lumbar foraminal stenosis PLAN: 1. The patient has had significant conservative care including medications (NSAIDS and dorcas cotics), PT (multiple sessions over the years) and care navigator. Unfortunately she cont inues to have significant discomfort. It appears to me that the pain is primarily coming fr om the disc bulge at L5/S1 causing foraminal stenosis towards the left. I did feel that she would be a good candidate for interventional procedures and I offered a left L5/S1 TFESI wh ich will be done later today. 2. Medications have been reviewed at today's visit with no changes made at this time. She is taking gabapentin at night which is helping her sleep. 3. She would like to participate in physical therapy again, a referral to [facility] has been done. 4. She was encouraged to fill out the post injection pain log and follow up in 2 weeks. ELECTRONICALLY SIGNED BY: Anna Aponte PA-C, 08/30/2016 CC: Zabrina Bush documented in t his encounter Plan of Treatment +--------+ + + + + | Date | Type | Specialty | Care Team | Description | +--------+ + + + + | 05/19/ | Hospital | Radiology | Dennys Pineda PA-C | | | 2019 | Encounter | | [address] | | | | | | [address] | | | | | | [place] [address] | | | | | | [phone] | | | | | | | | | | | | Divinity TeacherNaomi | | +--------+ + + + + + + +--------+ + + | Name | Type | Priori | Associated Diagnoses | Order Schedule | | | | ty | | | + + +--------+ + + | * [facility] | Outpatient | Routin | Lumbar [...] | + +--------+ + + + | IMAGING REPORT - | | 07/19/2016 | | Results for this | | EXTERNAL SCAN | | 12:00 AM | | procedure are in the | | | | PST | | results section. | + +--------+ + + + documented in this encounter Results [facility] Lumbar Transforaminal (08/30/2016 5:34 PM PST) + + | Specimen | + + | | + + + + + | Narrative | Performed At | + + + | 08/30/2016 Transforaminal Epidural Steroid Injection Diagnosis: | [facility] | | Lumbar radiculopathy ICD-10 Code M54.16 Ashly Santiago | [facility] | | presents to the fluoroscopy suite for a fluoroscopically-guided [facility] | | L5-S1 transforaminal epidural steroid injection as part of | - IMAGING | | conservative management for chronic pain with lumbar radiculopathy | | | and degenerative disk disease. After informed consent was | | | obtained, the patient lay in the prone position on the fluoroscopy | | | table. The area was identified under fluoroscopic guidance. The | | | area was prepped and draped in sterile fashion. A 25-gauge, | | | 1.5-inch needle was inserted into this region and approximately 3 mL | | | of buffered 1% lidocaine was infused. Then, a 22-gauge spinal | | | needle was inserted into the posterior superior transforaminal space | | | and advanced into the epidural space under fluoroscopic guidance. | | | Confirmation into the epidural space was obtained with infusion of | | | approximately 1 mL of Omnipaque contrast which showed epidural flow | | | as well as nerve sheath flow. Then, a combination of 1.5 mL of | | | 1% lidocaine and 1.5 mL of 6 mg/mL Celestone was infused. The | | | patient tolerated the procedure well without complications. Pre- and | | | post-procedure blood pressures were stable. The patient was given | | | verbal as well as written follow-up instructions. Prior to | | | the start of the procedure, the following were performed and/or | | | verified, including correct patient identity, correct site/side marked | | | and visible, agreement on the procedure to be done, correct patient | | | positioning and an accurate procedure consent form. Any safety | | | precautions based on clinical history and/or medication use have been | | | addressed. I personally performed the procedure above. | | | Estimated blood loss: Minimal Complications: None Findings: As | | | expected Anesthesia: Local 1% Lidocaine | | + + + + + + + + | Performing | Address | City/State/Zipcode | Phone Number | | Organization | | | | + + + + + | [facility] | [address] | [place], [place] | [phone] | | [facility] | | [address] | | | - IMAGING | | | | + + + + + IMAGING REPORT - EXTERNAL SCAN (07/19/2016 12:00 AM PST) + + + | Narrative | Performed At | + + + | Ordered by an | | | unspecified provider. | | + + + documented in this encounter Visit Diagnoses + + | Diagnosis | + + | Lumbar radiculopathy - Primary Thoracic or lumbosacral neuritis or radiculitis, | | unspecified | + + | DEGENERATIVE DISC DISEASE, LUMBAR SPINE Degeneration of lumbar or lumbosacral | | intervertebral disc | + + | Lumbar foraminal stenosis Spinal stenosis, lumbar region, without neurogenic | | claudication | + + | Fibromyalgia Mylagia and myositis, unspecified | + + documented in this encounter
--- OUTSIDE RECORDS SUMMARY | ~2019-05-17 | XMS | Encounter Summary ---
Demographics + + + | Address | [address] | | | [place] [address] | + + + | Home Phone [...] Author | [facility] | | | and Azana | + + + | Organization | [facility] [...] [place], [place] | | | | | [address] | | + + + + + | Helena Doherty | ECON | [place], | | | | | [place] [address] | | + + + + + Care Team Providers + +------+ + | Care Phone Technician Name | Role | Phone | [...] | | | | | | | [place] | | | | | | | ARTHDSIS | | | | | | | POST/POSTERO | | | | | | | LATRL/POSTIN | | | | | | | TERBODY | | | | | | | LUMBAR [place] | | | | | | | SPINE | | | | | | | FUSN,POST | | | | | | | TECH,EA | | | | | | | ADDNL SGMT | | | | | | | [place] LUMBAR | | | | | | [...] | | | | | | SEG [place] | | | | | | | LAMINEC/FACE | | | | | | | TECT/FORAMIN | | | | | | | ,EACH ADDNL | | | | | | | [place] INSJ | | | | | | | BIOMCHN DEV | | | | | | | INTERVERTEBR | | | | | | | AL DSC SPC | | | | | | | W/ARTHRD [place] | | | | | | | [...] + + + + | 02/13/ | Hospital | [facility] | Agusto Pereira MD | | | 2017 | Encounter | [facility] | [address] | | | | | [address] | [place] [address] | | | | | [place], [place] | [phone] | | | | | [address] | | | | | | [phone] | | | +--------+ + + + [...] DAIANA | | | | | | [place] [address] | | | | | | [phone] | | | | | | | | | | | | Stencil Cutter MachineNaomi | | +--------+ + + + + documented as of this encounter Visit Diagnoses + + | Diagnosis | + + | Lumbar radiculopathy - Primary Thoracic or lumbosacral neuritis or radiculitis, | | unspecified | + + | Lumbar scoliosis Scoliosis (and kyphoscoliosis), idiopathic | + + | Idiopathic scoliosis of lumbar spine | + + | Lumbar foraminal stenosis Spinal stenosis, lumbar region, without neurogenic | | claudication | + + | DEGENERATIVE DISC DISEASE, LUMBAR SPINE Degeneration of lumbar or lumbosacral | | intervertebral disc | + + | Facet arthritis of lumbar region Lumbosacral spondylosis without myelopathy | + + | Rheumatoid arthritis - on methotrexate | + + | Hypertension Unspecified essential hypertension | + + documented in this encounter Administered Medications + +--------+---------+------+------+------+ [...] ONCE | | | PRN, Wheezing, Starting Tue | | | 02/13/17 at 1350, For 1 dose, RT | | | will administer., Pre-op | | + +---+ | | | + +---+ + +---------+ +---+ +---+ | lactated ringers (LR) infusion | New Bag | 02/14/20 | | 50 mL/hr | | | at 10-100 mL/hr, Intravenous, | | 17 2:20 | | | | | CONTINUOUS, Starting Sun02/13/17 | | PM PDT | | | | | at 1415, TKO., Pre-op | | | | | | + +---------+ +---+ +---+ +---+---+ | | | +---+---+ + +---------+ +---------+---+ + | scopolamine (TRANSDERM-SCOP) 1 | Patch | 02/14/20 | 1 patch | | Ear-Behi | | mg/3 days 1 patch 1 patch, | Applied | 17 2:28 | | | nd Left | | Transdermal, ONCE, Sun02/13/17 at | | PM PDT | | | | | 1415, For 1 dose, Apply to | | | | | | | mastoid process, Pre-op | | | | | | + +---------+ +---------+---+ + +---+---+ | | | +---+---+ documented in this encounter
--- OUTSIDE RECORDS SUMMARY | ~2019-05-17 | XMS | Encounter Summary ---
Demographics + + + | Address | [address] | | | [place] [address] | + + + | Home Phone | | + + + | Preferred Language | Unknown | + + + | Marital Status | | + + + | Uatsdin Affiliation | 1077 | + + + | Race | Unknown | + + + | Ethnic Group | Unknown | + + + Author + + + | Author | [facility] | | | and Azana | + + + | Organization | [facility] | | | and Azana [...] [place], [place] | | | | | [address] | | + + + + + | Helena Doherty | ECON | [place], | | | | | [place] [address] | | + + + + + Care Team Providers + +------+ + | Care Hose Maker Name | Role | Phone | [...] [facility] | | | | | Lumbar | [place], | [address] | | | | | radiculopath | Osman Price MD | [place], | | | | | y | [address] | [place] | | | | | Procedures | [address] [place] | [address] | | | | | MA INJECT | [place], [place] | Phone: | | | | | ANES/STEROID | [address] | [phone] | | | | | FORAMEN | Phone: | Fax: | | | | | LUMBAR/SACRA | [phone] | [phone] | | | | | L W IMG | Fax: | | | | | | GUIDE ,1 | [phone] | | | | | | LEVEL MA | | | | | | | TRIAMCINOLON | | | | | | | E ACET INJ | | | | | | | NOS, 10 MG | | | | | | | Left L5-S1 | | | | | | | TFESI | | | +--------+--------+ + + + + Encounter Details +--------+ + + + + | Date | Type | Department | Care Team | Description | +--------+ + + + + | 08/30/ | Hospital | [facility] | Bogdanowicz, | Lumbar | | 2017 | Encounter | MED CTR XRAY [address] | FABIAN Castillo [address] | radiculopathy; | | | | [place] | [facility], | DEGENERATIVE DISC | | | | [place] [address] | [place] [address] | DISEASE, LUMBAR | | | | [phone] | [phone] | SPINE; 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 | | | | | High Heel BuilderNaomi | | +--------+ + + + + [...] +---------+ + + | Blood Pressure | 144/67 | 08/30/2016 5:59 PM | | | | | PST | | + +---------+ + + | Pulse | 73 | 08/30/2016 5:59 PM | | | | | PST | | + +---------+ + + | [...] | + + + +---------+--------+ + | busPIRone (BUSPAR) | Take 7.5 mg by mouth | | 0 | | | | 7.5 MG tablet | 2 times daily. | | | | 7 | + + + +---------+--------+ + | Cholecalciferol | Take 2,000 Units by | | 0 | | | | (VITAMIN D-3) 2000 | mouth Daily. | | | | 9 | | units CAPS | | | | | | + + + +---------+--------+ + | diclofenac | Take 75 mg by mouth | | 0 | | | | (VOLTAREN) 75 mg EC | 2 times daily. | | | | 7 | | tablet | | | | | | + + + +---------+--------+ + | docusate sodium | Take 100 mg by mouth | | 0 | | | | (COLACE) 100 mg | Daily as needed for | | | | 7 | | capsule | Constipation. | | | | | + + + +---------+--------+ + | fish oil 1,000 mg | Take 1,000 mg by | | 0 | | | | capsule | mouth Daily. | | | | 7 | + + + +---------+--------+ + | gabapentin | Take 300 mg by mouth | | 0 | | | | (NEURONTIN) 300 mg | nightly. | | | | 7 | | capsule | | | | | | + + + +---------+--------+ + | | Take 1 capsule by | | 0 | | | | Glucosamine-Chondroi | mouth 2 times daily. | | | | 7 | | t-Vit C-Mn | | | | | | | (GLUCOSAMINE CHONDR | | | | | | | 1500 COMPLX PO) | | | | | | + + + +---------+--------+ + | | Take 1 tablet by | | 0 | | | | HYDROcodone-acetamin | mouth every 6 hours | | | | 7 | | ophen (NORCO) | as needed for Pain. | | | | | | 7.5-325 mg per | | | | | | | tablet | | | | | | + + + +---------+--------+ + | Lysine 500 MG CAPS | Take 1 capsule by | | 0 | | | | | mouth Daily. | | | | 7 | + + + +---------+--------+ + | [...] | | | | | | [place] [address] | | | | | | [phone] | | | | | | | | | | | | High Heel Builder, [facility] | | +--------+ + + + + documented as of this encounter Procedures + +--------+ + + + | Procedure Name | Priori | Date/Time | Associated Diagnosis | Comments | | | ty | | | | + +--------+ + + + | FL EPIDURAL STEROID | Routin | 08/30/2016 | Lumbar | Results for this | | INJECTION LUMBAR | e | 5:34 PM | radiculopathy | procedure are in the | | TRANSFORAMINAL | | PST | DEGENERATIVE DISC | results section. | | | | | DISEASE, LUMBAR | | | | | | SPINE 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 | | + +--------+ + + + documented in this encounter Results FL ROCK Lumbar Transforaminal (08/30/2016 5:34 PM PST) + + | Specimen | + + | | + + + + + | Narrative | Performed At | + + + | 08/30/2016 Transforaminal Epidural Steroid Injection Diagnosis: | [facility] | | Lumbar radiculopathy ICD-10 Code M54.16 Ashly Real Alcove | [facility] | | presents to the fluoroscopy suite for a fluoroscopically-guided [facility] | | L5-S1 transforaminal epidural steroid injection [...] + + | Performing | Address | City/State/[facility] | Phone Number | | Organization | | | | + + + + + | NANCY KNOTT | Nico Knott | [place] | [phone] | | [facility] | | [address] | | | - IMAGING | | | | + + + + + documented in this encounter Visit Diagnoses + + | Diagnosis | + + | Lumbar radiculopathy Thoracic or lumbosacral neuritis or radiculitis, unspecified | + + | DEGENERATIVE DISC DISEASE, LUMBAR SPINE Degeneration of lumbar or lumbosacral | | intervertebral disc | + + | Lumbar foraminal stenosis Spinal stenosis, lumbar region, without neurogenic | | claudication | + + documented in this encounter Administered Medications + +--------+ +------+------+------+ | Medication Order | MAR | Action | Dose | Rate | Site | | | Action | Date | | | | + +--------+ +------+------+------+ | betamethasone (CELESTONE | Given | 08/31/19 | 9 mg | | | | SOLUSPAN) injection 9 mg 9 mg, | | 17 5:45 | | | | | Other, ONCE, 08/30/16 at 1800, | | PM PST | | | | | For 1 dose | | | | | | + +--------+ +------+------+------+ +---+---+ | | | +---+---+ + +-------+ +-------+---+---+ | iohexol (OMNIPAQUE 300) 300 | Given | 08/31/19 | 4 mLs | | | | mg/mL injection 4 mL 4 mL, | | 17 5:40 | | | | | Other, ONCE, Sun08/30/16 at 1800, | | PM PST | | | | | For 1 dose | | | | | | + +-------+ +-------+---+---+ +---+---+ | | | +---+---+ + +-------+ +-------+---+---+ | lidocaine (PF) 1% injection 2 | Given | 08/31/19 | 2 mLs | | | | mL 2 mL, Other, ONCE, Sun08/30/16 | | 17 5:45 | | | | | at 1800, For 1 dose | | PM PST | | | | + +-------+ +-------+---+---+ +---+---+ | | | +---+---+ + +-------+ +-------+---+---+ | lidocaine buffered 1% injection | Given | 08/31/19 | 5 mLs | | | | 5 mL 5 mL, Other, ONCE, Wed | | 17 5:35 | | | | | 08/30/16 at 1800, For 1 dose | | PM PST | | | | + +-------+ +-------+---+---+ +---+---+ | | | +---+---+ documented in this encounter"
--- OUTSIDE RECORDS SUMMARY | ~2019-05-17 | XMS | Encounter Summary ---
Demographics + + + | Address | [address] | | | [place] [address] | + + + | Home Phone [...] Team Providers + +------+ + | Care Media Aid Name | Role | Phone | + [...] Nell | | | | | 4.0) ([facility]) | [place] [address] | [address] | | | | | Myalgia and | [address] | [address] [place], | | | | | myositis, | [place], | [place] | | | | | unspecified | [place] [address] | [address] | | | | | Procedures | Phone: | Phone: | | | | | [place] | [phone] | [phone] | | | | | OFFICE/OUTPT | Fax: | Fax: | | | | | | [phone] | [phone] | | | | | VISIT,EST,LE | | | | | | | PASQUALE III | | | +--------+--------+ + + + + Encounter Details +--------+---------+ + + + | Date | Type | Department | Care Team | Description | +--------+---------+ + + + | 06/01/ | Office | Rheumatology at | Tavia Zuniga | Arthralgia (Primary | | 2014 | Visit | Physicians Francy | Kinga, MATERIAL DISPOSITION INSPECTOR [address] | Dx); Myalgia; | | | | [address] | [address] | Fatigue | | | | Celina Chatman Mailcode: | [place], [place] | | | | | [address] Physician's | [address] | | | | | Francy, 4th Floor | [phone] | | | | | [place], [place] | | | | | | [address] | | | | | | [phone] | | | +--------+---------+ + + + [...] + + + | Blood Pressure | 140/80 | 06/01/2014 3:56 PM | | | | | PST | | + + + + + | Pulse | 80 | 06/01/2014 3:56 PM | | | | | PST [...] Weight | 93.4 kg (206 lb) | 06/01/2014 3:56 PM | | | | | PST | | + + + + + | Height | - | - | | + + + + + | Body Mass Index | 34.28 | 04/07/2013 2:16 PM | | | | | PDT | | + + + + + documented in this encounter Progress Notes Samanta Zunigae Kinga, MATERIAL DISPOSITION INSPECTOR - 06/01/2014 4:23 PM PSTFormatting of this note might be differe nt from the original. Progress Note Clinic: Rheumatology Reason for follow-up: Chief Complaint Patient presents with Fibromyalgia Follow-up visit Ms. Santiago was last seen December 2013. 6 months ago pain was well controlled. Change happened 3-4 months ago Started with an increase in knee pain. Had injections in and did well and then in January didn't help. After that bursitis. Doing PT 2x/ week. Getting acupuncture 1x/ week and massage 1x/ wk. EMS several hours. Pain in the last week. Knees, hips, thighs, sciatica, right arm achy all the time. Proble ms with lump on her wrist . No true constipation. Remains on bowel regimen. Maintains safe storage of medication. Denies mood disturbance. ROS: See scanned form. Past Medical History: [...] Stroke in her mother. Physical Exam: BP 140/80 | Pulse 80 | Wt 93.441 kg (206 lb) | BMI 34.28 kg/(m^2) Pain Score: 7 Rapid 3 MHAQ: 6.0 (06/01/141599) PAIN LEVEL: 8 (06/01/141599) GLOBAL ASSESSMENT: 7.5 (06/01/141599) RAPID 3: 7.17 (06/01/141599) Gen: Well nourished, well developed, in NAD [...] fibromyalgia, RA and chronic fatigue. Functional Assessment: [facility] 09/01/2013 12/23/2013 06/01/2014 RAPID 3 6.77 3.33 7.17 Recommendations: 1. Based on Ms. Santiago's decline over the last 3-6 months, we have decided to taper off bairon ly opioid therapy. Rx the 5mcg patch for 3 months. Educated regarding use, side-effects an d precautions with all prescribed medications. 2. Reevaluate clinically 3 months and will transition to short term oral to complete taper. 3. Continue care with Dr. Lucia regarding RA. [facility] [address] [place] [address] Mailcode: Op09 [facility], 4th Floor [facility] [address] documented in t his encounter Plan of Treatment Not on filedocumented as of this encounter Results C-REACTIVE PROTEIN (06/01/2014 4:51 PM PST) + [...] | + + + + + | [facility] | [address] [facility] [facility] | [place] [address] | | | SERVICES, CORE | PARK [...] | | | LABORATORY | | | [place] | | | SERVICES, | | | [...] | + + + + + | [facility] | [address] | [place] [address] | | | SERVICES, CORE | PARK [...] | | SERUM - | | | [place] | | | SPEP | | | [...] + | [facility] - | [address] | [place] [address] | | | [place] | | | | + + + [...] + + | [facility] | [address] [facility] [facility] | [place] [address] | | | SERVICES, SPECIAL | [address] | | | | IMM + [...] [facility] | [address] | [place] [address] | | | SERVICES, SPECIAL | PARK [...] a similar TSH assay, and | SERVICES, SAMIR | | should be interpreted with caution. | | + + + + + + + + | Performing | Address | City/State/Zipcode | Phone Number | | Organization | | | | + + + + + | [facility] | [address] | [place] [address] | | | SAMIR LEVY | [address] [...] | + + + + + | [facility] | [address] | [place] [address] | | | SERVICES, SPECIAL | PARK [...] | | | this test in the [facility] | | | | | | Laboratory Test | | | | | | Directory | | | | | | ([employer]).Performed | | | | | | by [employer],[address] | | | | | | [facility] | | | | | | [address] | | | | | | [phone].[employer]. | | | | | | [facility], Delvis Ugarte, | | | | | | Wendy MARROQUIN. Director | | | | + + + + + + + + | Specimen | + + | Blood - Blood | + + + + + + + | Performing | Address | City/State/Zipcode | Phone Number | | Organization | | | | + + + + + | [facility] | [address] | [place], [place] | | | [facility] | | [address] | | + + + + + [...] [facility] | [address] | [place] [address] | | | SERVICES, CORE | PARK [...] | + + + + + | [facility] | [address] | [place] [address] | | | SERVICES, CORE | [address] | | | + + + + + documented in this encounter Visit Diagnoses + + | Diagnosis | + + | Arthralgia - Primary Pain in joint, site unspecified | + + | Myalgia Mylagia and myositis, unspecified | + + | Fatigue Other malaise and fatigue | + + documented in this encounter"
--- OUTSIDE RECORDS SUMMARY | ~2019-05-17 | XMS | Encounter Summary ---
Demographics + + + | Address | [address] | | | [place] [address] | + + + | Home Phone [...] Author | [facility] | | | and Azana | + + + | Organization | [facility] | | | and Azana [...] [place], [place] | | | | | [address] | | + + + + + | Helena Doherty | ECON | [place], | | | | | [place] [address] | | + + + + + Care Team Providers + +------+ + | Care Locker Room Manager Name | Role | Phone | [...] left hip | [address] | [place] | | | | | Trochanteric | Ave | [address] Phone: | | | | | bursitis, | [place], | [phone] | | | | | right hip | [place] | Fax: | | | | | Fibromyalgia | [address] | [phone] | | | | | Procedures | Phone: | | | | | | PT Noel w/ | [phone] | | | | | | Aiyana | Fax: | | | | | | [place] | [phone] | | +--------+--------+ + + + + Encounter Details +--------+---------+ + + + | Date | Type | Department | Care Team | Description | +--------+---------+ + + + | 05/23/ | Office | [facility] | Schmidtgall, | Trochanteric | | 2018 | Visit | MED CTR THERAPY PT | Sophia Kingsley PA-C | bursitis of both | | | | OP [address] | [address] | hips (Primary Dx); | | | | [address] | [place], [place] | Neck pain; | | | | [address] | [address] | Fibromyalgia | | | | [phone] | [phone] | | | | | | | | | | | | Aiyana Fish S, PT | | | | | | [address] | | | | | | [place] | | | | | | [address] | | | | | | | [...] might be different fro m the original. [facility] THERAPY PT OP [address] [place] [address] Physical Therapy Daily Treatment Note Date: 05/23/2018 Patient Information Patient Name: Ashly Santiago Date of : 1940 Age: 78 y.o. Encounter Diagnoses Code Name Primary? M70.61, M70.62 Trochanteric bursitis of both hips Yes M54.2 Neck pain M79.7 Fibromyalgia Date of Onset: 04/10/2018 Referring Provider: Sophia Bush PA-C Rehab Precautions Office Visit from 04/17/2018 in [facility] CTR THERAPY PT OP Rehab Precautions Precautions None Rehab Learning Style Office Visit from 04/17/2018 in [facility] THERAP[facility] PT OP Office Visit fro m 10/19/2016 in [facility] PT OP Learning Style [...] 2019 | Encounter | | [address] [facility] | | | | | [address] [facility] | | | | | | [place] [address] | | | | | | [phone] | | | | | | | | | | | | Supervisor Twisting DepartmentNaomi | | +--------+ + + + + documented as of this encounter Visit Diagnoses + + | Diagnosis | + + | Trochanteric bursitis of both hips - Primary Enthesopathy of hip region | + + | Neck pain Cervicalgia | + + | Fibromyalgia Mylagia and myositis, unspecified | + + documented in this encounter"
--- OUTSIDE RECORDS SUMMARY | ~2019-05-17 | XMS | Encounter Summary ---
Demographics + + + | Address | [address] | | | [place] [address] | + + + | Home Phone [...] + + + | Author | [facility] | + + + | Organization | [facility] | + + + | Address | Unknown | + + + | Phone | Unavailable | + + + Support + + +---------+ + | Name | Relationship | Address | Phone | + + +---------+ + | Alon Santiago | ECON | Unknown | | + + +---------+ + Care Team Providers + +------+ + | Care Field Sales Manager Name | Role | Phone [...] | | | Amara Chatman Mailcode: | [place], [place] | | | | | [address] Physician's | [address] | | | | | Francy, [facility] Floor | [phone] | | | | | [place], [place] | | | | | | [address] | | | | | | [phone] | | | +--------+--------+ + + + [...]
--- OUTSIDE RECORDS SUMMARY | ~2019-05-17 | XMS | Encounter Summary ---
Demographics + + + | Address | [address] [facility] | | | [place] [address] | + + + | Home Phone [...] | Author | [facility] | | | and Azana | + + + | Organization | [facility] | [...] [place], [place] | | | | | [address] | | + + + + + | Helena Doherty | ECON | [place], | | | | | [place] [address] | | + + + + + Care Team Providers + +------+ + | Care Glass Cutter Hand Name | Role | Phone | + [...] | +--------+ + + + + | 10/30/ | Telephone | [facility] | Agusto Pereira MD | Surgery Appointment | | 2017 | | NEUROSURGERY [address] | [address] | | | | | [address] | [place] [address] | | | | | [place] | [phone] | | | | | [address] | | | | | | [phone] | | | +--------+ + + + [...] [place] | | | | | | [place] [address] | | | | | | [phone] | | | | | | | | | | | | MailmasterNaomi | | +--------+ + + + + documented as of this encounter Visit Diagnoses Not on filedocumented in this encounter"
--- OUTSIDE RECORDS SUMMARY | ~2019-05-17 | XMS | Encounter Summary ---
Demographics + + + | Address | [address] [facility] | | | [place] [address] | + + + | Home Phone [...] + + | Author | [facility] | | | and Azana | + + + | Organization | [facility] | | | [...] [place], [place] | | | | | [address] | | + + + + + | Helena Doherty | ECON | [place], | | | | | [place] [address] | | + + + + + Care Team Providers + +------+ + | Care Auto Porter Name | Role | Phone | + [...] | | [address] | [place] [address] | arthritis of lumbar | | | | [place], [place] | [phone] | region ([facility]); | | | | [address] | | Chronic low back | | | | [phone] | | pain with sciatica, | | [...] Sacroiliitis | | | | | | ([facility]); Lumbar | | | | | | [...] | | | | | | [place] [address] | | | | | | [phone] | | | | | | | | | | | | Air Intercept Controller, [facility] | | +--------+ + + + [...]
--- OUTSIDE RECORDS SUMMARY | ~2019-05-17 | XMS | Encounter Summary ---
Demographics + + + | Address | [address] [facility] [address] [facility] | | | [place] [address] | + + + | Home Phone [...] | Author | [facility] | | | and Azana | + + + | Organization | [facility] | | | and Azana [...] [place], [place] | | | | | [address] | | + + + + + | Helena Doherty | ECON | [place], | | | | | [place] [address] | | + + + + + Care Team Providers + +------+ + | Care Briquette Machine Operator Name | Role | Phone [...] left hip | [address] | [place] | | | | | Trochanteric | Ave | [address] Phone: | | | | | bursitis, | [place], | [phone] | | | | | right hip | [place] | Fax: | | | | | Fibromyalgia | [address] | [phone] | | | | | Procedures | Phone: | | | | | | PT Noel w/ | [phone] | | | | | | Aiyana | Fax: | | | | | | [place] | [phone] | | +--------+--------+ + + + + Encounter Details +--------+---------+ + + + | Date | Type | Department | Care Team | Description | +--------+---------+ + + + | 06/10/ | Office | [facility] | Schmidtgall, | Fibromyalgia | | 2018 | Visit | MED CTR THERAPY PT | Sophia Kingsley PA-C | (Primary Dx); Neck | | | | OP [address] | [address] | pain; Trochanteric | | | | [address] | [place], [place] | bursitis of both | | | | [address] | [address] | hips | | | | [phone] | [phone] | | | | | | | | | | | | Aiyana Fish S, PT | | | | | | [address] | | | | | | [place] | | | | | | [address] | | | | | | | [...] might be different fro m the original. [facility] CTR THERAPY PT OP [address] [place] [address] Physical Therapy Daily Treatment Note Date: 06/10/2018 Patient Information Patient Name: Ashly Santiago Date of : 1940 Age: 78 y.o. Encounter Diagnoses Code Name Primary? M79.7 Fibromyalgia Yes M54.2 Neck pain M70.61, M70.62 Trochanteric bursitis of both hips Date of Onset: 04/10/2018 Referring Provider: Sophia Bush PA-C Rehab Precautions Office Visit from 04/17/2018 in [facility] CTR THERAPY PT OP Rehab Precautions Precautions None Rehab Learning Style Office Visit from 04/17/2018 in [facility] CTR THERAPY PT OP Office Visit fro m 10/19/2016 in [facility] CTR THERAPY PT OP Learning Style [...] | Encounter | | [address] [facility] | | | | | | [address] [facility] | | | | | | [place] [address] | | | | | | [phone] | | | | | | | | | | | | Patternmaker Apprentice MetalNaomi | | +--------+ + + + + documented as of this encounter Visit Diagnoses + + | Diagnosis | + + | Fibromyalgia - Primary Mylagia and myositis, unspecified | + + | Neck pain Cervicalgia | + + | Trochanteric bursitis of both hips Enthesopathy of hip region | + + documented in this encounter
--- OUTSIDE RECORDS SUMMARY | ~2019-05-17 | XMS | Encounter Summary ---
Demographics + + + | Address | [address] [facility] [address] [address] | | | [place] [address] | + + + | Home Phone | | + + + | Preferred Language | Unknown | + + + | Marital Status | | + + + | Worship Affiliation | Unknown | + + + | Race | White | + + + | Ethnic Group | Not or | + + + Author + + + | Author | [facility] | + + + | Organization | [facility] | + + + | Address | Unknown | + + + | Phone | Unavailable | + + + Support + + +---------+ + | Name | Relationship | Address | Phone | + + +---------+ + | Alon Santiago | ECON | Unknown | | + + +---------+ + Care Team Providers + +------+ + | Care Precision Assembly Inspector Name | Role | Phone | + +------+ + | Thee Boss MD | PCP | | + +------+ + Encounter Details +--------+ + + + + | Date | Type | Department | Care Team | Description | +--------+ + + + + | 05/19/ | MyChart | Rheumatology at | Tavia Zuniga | RE: Ashly Santiago | | 2012 | Encounter | Physicians Francy Donato, DISTRIBUTOR PUBLICATIONS [address] | | | | | [address] | [address] | | | | | Amara Chatman Mailcode: | [place], [place] | | | | | [address] Physician's | [address] | | | | | Francy, [facility] Floor | [phone] | | | | | [place], [place] | | | | | | [address] | | | | | | [phone] | | | +--------+ + + + [...]
--- OUTSIDE RECORDS SUMMARY | ~2019-05-17 | XMS | Encounter Summary ---
Demographics + + + | Address | [address] | | | [place] [address] | + + + | Home Phone [...] Author | [facility] | | | and Azana | + + + | Organization | [facility] [...] [place], [place] | | | | | [address] | | + + + + + | Helena Doherty | ECON | [place], | | | | | [place] [address] | | + + + + + Care Team Providers + +------+ + | Care Sales Planning Coordinator Name | Role | Phone | [...] | Degenerative | [address] | [place], [place] | | | | | disc | [place] | [address] Phone: | | | | | disease, | [address] | [phone] | | | | | lumbar | Phone: | Fax: | | | | | Lumbar | [phone] | [phone] | | | | | foraminal | Fax: | | | | | | stenosis | [phone] | | | | | | Fibromyalgia [...] + + | 01/04/ | Office | [facility] | [place], | Sacroiliitis (HCC) | | 2017 | Visit | MED CTR THERAPY PT | FABIAN Castillo [address] | (Primary Dx); | | | | OP [address] | [facility], | Fibromyalgia | | | | [place] | [place] [address] | | | | | [address] | [phone] | | | | | [phone] | | | | | | | Aiyana Fish S, PT | | | | | | [address] | | | | | | [place] | | | | | | [phone] | | | | | | | [...] be different fro m the original. [facility] CTR THERAPY PT OP [address] [place] [address] Physical Therapy Daily Treatment Note Date: 01/04/2017 Patient Information Patient Name: Ashly Santiago Date of : 1940 Age: 77 y.o. Encounter Diagnoses Code Name Primary? M46.1 Sacroiliitis (HCC) Yes M79.7 Fibromyalgia Date of Onset: 06/08/2016 Referring Provider: Anna Aponte PA-C Rehab Precautions Flowsheet Row Office Visit from 10/19/[address] [facility] CTR THERAPY PT OP Rehab Precautions Precautions None Rehab Learning Style Flowsheet Row Office Visit from 10/19/[address] [facility] CTR THERAPY PT OP Learning Style [...] | | | | | [place] [address] | | | | | | [phone] | | | | | | | | | | | | Health Care Law SpecialistNaomi | | +--------+ + + + [...]
--- OUTSIDE RECORDS SUMMARY | ~2019-05-17 | XMS | Encounter Summary ---
Demographics + + + | Address | [address] | | | [place] [address] | + + + | Home Phone | | + + + | Preferred Language | Unknown | + + + | Marital Status | | + + + | Scientologist Affiliation | 1077 | + + + | Race | Unknown | + + + | Ethnic Group | Unknown | + + + Author + + + | Author | [facility] | | | and Azana | + + + | Organization | [facility] | | | and [...] [place], [place] | | | | | [address] | | + + + + + | Helena Doherty | ECON | [place], | | | | | [place] [address] | | + + + + + Care Team Providers + +------+ + | Care Extended Day Teacher Name | Role | Phone | + +------+ + | Nathan Luevano DO | PCP | | + +------+ + Reason for Visit + + + | Reason | Comments | + + + | Re-Assessment/ | | | Significant Change | | | Assessment | | + + + Evaluate [...] | | Degenerative | [address] | [facility], [place] | | | | | disc | [place] | [address] Phone: | | | | | disease, | [address] | [phone] | | | | | lumbar | Phone: | Fax: | | | | | Lumbar | [phone] | [phone] | | | | | foraminal | Fax: | | | | | | stenosis | [phone] | | | | | | Fibromyalgia [...] Description | +--------+---------+ + + + | 01/24/ | Office | [facility] | [place], | Fibromyalgia | | 2017 | Visit | MED CTR THERAPY PT | [address]ABIAN Castillo [address] | (Primary Dx); | | | | OP [address] | [facility], | Sacroiliitis (HCC) | | | | [place] | [place] [address] | | | | | [address] | [phone] | | | | | [phone] | | | | | | | Aiyana Fish S, PT | | | | | | [address] | | | | | | [place] | | | | | | [id number] | | | | | | | [...] encounter Progress Notes Aiyana Fish, PT - 01/24/2017 1:00 PM PDTFormatting of this note might be different fro m the original. Physical Therapy Progress Note Date: 01/24/2017 Patient Name: Ashly Santiago Date of : 1940 Encounter Diagnoses Code Name Primary? M79.7 Fibromyalgia Yes M46.1 Sacroiliitis (HCC) Date of Onset: 06/08/2016 Start of Care Date: 10/19/2016 Requested # of Visits: 12 visits 1x/week for 12 weeks Certification From: 01/24/2017 Certification To: 04/26/2017 Clinical Impression: Ashly Santiago has been participating in therapy for treatment o f low back pain due to lumbar radiculopathy. Patient demonstrates objective improvements wit h AROM of her lumbar spine and hip flexion. Her radicular symptoms have centralized. Kristi Santiago continues to have impairments with myofascial pain in her low back and thorac ic spine which are affecting her ability to complete functional tasks such as prolonged tati ding, proper sleeping and lifting. Patient requires continued skilled therapy services to ac hieve the following updated functional goals. Pt is scheduled to have lumbar surgery . She will have 1 more PT appointment before that tome. Plan is to continue PT if the va ed is there following her surgery. Goals: Patient Specific Functional Scale Goal 1: Pt will be able to walk for up to 20 min without increased pain using graded exposure technique. Patient Specific Functional Scale Goal 1 Status: 10 Patient Specific Functional Scale Goal 1 Status Comment: Pt is able to walk for up to 30 mi n at slow pace without increased pain. Goal met. Patient Specific Functional Scale Goal 2: Pt will be able to sleep for up to 6 hours withou t interruption due to pain Patient Specific Functional Scale Goal 2 Status: 4 Patient Specific Functional Scale Goal 2 Status Comment: Pt is able to sleep 4 hours but n ot more. Patient Specific Functional Scale Goal 3: Pt will be participating in home program to inclu de yoga stretches, breathing and relaxation techniques and a walking program at least 3 time s per week. Patient Specific Functional Scale Goal 3 Status: 0 Oswestry Disability Index Goal: 20% OP PT Goals Goal 1: Pt will reduce her NINOSKA score by at least 20 points in the next 60 days. Goal 1 Status: Pt has NINOSKA score today of 48% PT G-Codes Functional Assessment Tool Used: NINOSKA Score: 20% Functional Limitation: Mobility: Walking and moving around Mobility: Walking and Moving Around Current Status (G8978): At least 20 percent but less th an 40 percent impaired, limited or restricted Mobility: Walking and Moving Around Goal Status (G8979): At least 1 percent but less than 2 0 percent impaired, limited or restricted Treatment Plan/Interventions 44973 - Therapeutic [id number] - Therapeutic Jcnlrmgneu63738 - Manual Ahwbnvc84600 - Liza f Care/Home Management Electronically signed by: Aiyana Fish PT, 01/24/2017 14:33 Patient Name: Ashly Santiago/: 1940/ iyana Fish PT - 01/24/2017 1:00 PM PDT [facility] CTR THERAPY PT OP [address] [place] [address] Physical Therapy Progress Assessment Date: 01/24/2017 Patient Information Patient Name: Ashly Santiago Date of : 1940 Age: 77 y.o. Encounter Diagnoses Code Name Primary? M79.7 Fibromyalgia Yes M46.1 Sacroiliitis (HCC) Date of Onset: 06/08/2016 Referring Provider: Anna Aponte PA-C Rehab Precautions Flowsheet Row Office Visit from 10/19/2016 in [facility] CTR THERAPY PT OP Rehab Precautions Precautions None Rehab Learning Style Flowsheet Row Office Visit from 10/19/2016 in [facility] CTR THERAPY PT OP Learning Style Patient's Optimum Learning Style listening, reading, observation, performance of task Pain Assessment: Pain Rating Pre Assessment: 4 Location: right low back SUBJECTIVE: Ashly Santiago has completed 10 visits for treatment of low back pain. Pat titijohnson reports improvements with decreased pain, improvement in all aspects of function and so me improvement in sleep. However continues to report limits with limits and standing. OBJECTIVE: Standardized Tests: Oswestry Disability Index (NINOSKA) Pain Intensity: 1 - The pain is very mild at the moment Personal Care: 0 - I can take care of myself normally without causing increased pain Liftin - Pain prevents me from lifting heavy weights, but I can manage light to medium weights if they are conveniently positioned Walkin - Pain prevents me from walking more than 1/4 mile Sittin - I can sit in any chair as long as I like Standin - Pain prevents me from standing more than 1/2 hour Sleepin - Because of pain I get less than 6 hours sleep Sex life (if applicable): 5 - Pain prevents any sex life at all Social Life: 1 - My social life is normal, but it increases my level of pain Travelin - I can travel anywhere but it increases my pain Oswestry Disability Index Score (Calculated): 18 Oswestry Disability Percentage Score: 36 Oswestry Disability Index Goal: 20% Assessment Ashly Santiago has been participating in therapy for treatment of low back pain due to lumbar radiculopathy. Patient demonstrates objective improvements with AROM of her lumbar s pine and hip flexion. Her radicular symptoms have centralized. Ashly Santiago continu es to have impairments with myofascial pain in her low back and thoracic spine which are aff ecting her ability to complete functional tasks such as prolonged standing, proper sleeping and lifting. Patient requires continued skilled therapy services to achieve the following up dated functional goals. Pt is scheduled to have lumbar surgery 02/13/17. She will have 1 m ore PT appointment before that tome. Plan is to continue PT if the need is there following her surgery. Rehabilitation potential: Patient demonstrates good potential to achieve established goals to address the documented impairments by participating in skilled physical therapy services. Goals: Patient Specific Functional Scale Goal 1: Pt will be able to walk for up to 20 min without increased pain using graded exposure technique. Patient Specific Functional Scale Goal 1 Status: 10 Patient Specific Functional Scale Goal 1 Status Comment: Pt is able to walk for up to 30 mi n at slow pace without increased pain. Goal met. Patient Specific Functional Scale Goal 2: Pt will be able to sleep for up to 6 hours withou t interruption due to pain Patient Specific Functional Scale Goal 2 Status: 4 Patient Specific Functional Scale Goal 2 Status Comment: Pt is able to sleep 4 hours but n ot more. Patient Specific Functional Scale Goal 3: Pt will be participating in home program to inclu de yoga stretches, breathing and relaxation techniques and a walking program at least 3 time s per week. Patient Specific Functional Scale Goal 3 Status: 0 Oswestry Disability Index Goal: 20% OP PT Goals Goal 1: Pt will reduce her NINOSKA score by at least 20 points in the next 60 days. Goal 1 Status: Pt has NINOSKA score today of 48% Plan Date of Onset: 06/08/2016 Start of Care Date: 10/19/2016 Requested # of Visits: 12 visits 1x/week for 12 weeks Certification From: 01/24/2017 Certification To: 04/26/2017 Treatment Plan/Interventions 40908 - Therapeutic [id number] - Therapeutic [id number] - Manual Iptgrnh47130 - Liza f Care/Home Management Patient and/or family has indicated understanding of treatment needs and actively participa jesus in the creation of this plan for care. Today's Treatment Start Time: 1300 Stop time: 1413 Duration: 73 minutes Timed Treatment Codes: 60 minutes # of PT Visits: 10 Objective: Myofascial release and positional release therapy: Dural tube mobilization, sacrum, lumbar spine, cervical spine and mid/upper thoracic spine. Next Visit: Continue with manual therapy and development of home program. Encourage pt to do the 4-7-8- breathing in preparation for her surgery. Electronically signed by: Aiyana Fish PT, 01/24/2017 14:32 Patient Name: Ashly Real Jack/: 1940/ y signed by Aiyana Fish PT at 01/24/2017 2:34 PM PDTdocumented in this encounter Plan of [...] [place] | | | | | | [place] [address] | | | | | | [phone] | | | | | | | | | | | | Shoe FitterNaomi | | +--------+ + + + + [...]
--- OUTSIDE RECORDS SUMMARY | ~2019-05-17 | XMS | Encounter Summary ---
Demographics + + + | Address | [address] | | | [place] [address] | + + + | Home Phone [...] Team Providers + +------+ + | Care Staple Processing Machine Operator Name | Role | Phone | + +------+ + | Nathan Luevano | PCP | | + +------+ + Encounter Details +--------+------+ + + + | Date | Type | Department | Care Team | Description | +--------+------+ + + + | 06/15/ | Lab | Laboratory, | | Rheumatoid arthritis | | 2014 | | Specimen Collection | | ([facility]) | | | | at [address] | | | | | | [address] | | | | | | [place], | | | | | | [place] [address] | | | | | | [phone] | | | +--------+------+ + + + [...] CBC AND AUTO DIFF | Routin | 06/15/2015 | Rheumatoid | Results for this | | | e | 12:05 PM | arthritis (HCC) | procedure are in the | | | | PST | | results section. | + +--------+ + + + | CBC, WITH | Routin | 06/15/2015 | Rheumatoid | Results for this | | DIFFERENTIAL | e | 12:05 PM | arthritis (HCC) | procedure are in the | | | | PST | | results section. | + +--------+ + + + | COMPLETE METABOLIC | Routin | 06/15/2015 | Rheumatoid | Results for this | | SET | e | 12:05 PM | arthritis (HCC) | procedure are in the | | (NA,K,CL,CO2,BUN,CRE | | PST | | results section. | | AT,GLUC,CA,AST,ALT,B | | | | | | MEDINA TOTAL,ALK | | | | | | PHOS,ALB,PROT TOTAL) | | | | | + +--------+ + + + | C-REACTIVE PROTEIN | Routin | 06/15/2015 | Rheumatoid | Results for this | | | e | 12:05 PM | arthritis (HCC) | procedure are in the | | | | PST | | results section. | + +--------+ + + + | SEDIMENTATION RATE | Routin | 06/15/2015 | Rheumatoid | Results for this | | | e | 12:05 PM | arthritis (HCC) | procedure are in the | | | | PST | | results section. | + +--------+ + + + documented in this encounter Results CBC AND AUTO DIFF (06/15/2015 12:05 PM PST) + + + + + + | Component | Value | Ref Range | Performed | Pathologist | | | | | At | Signature | + + + + + + | WHITE CELL | 7.58 | 4.40 - 11.00 | [facility] | | | COUNT | | K/cu mm | LABORATORY | | | | | | SERVICES, | | | | | | CORE | | + + + + + + | RED CELL | 3.53 (L) | 4.00 - 5.20 | [facility] | | | COUNT | | M/cu mm | LABORATORY | | | | | | SERVICES, | | | | | | CORE | | + + + + + + | HEMOGLOBIN | 10.8 (L) | 12.0 - 16.0 | [facility] | | | | | g/dL | LABORATORY | | | | | | SERVICES, | | | | | | CORE | | + + + + + + | HEMATOCRIT | 34.5 (L) | 36.0 - 46.0 % | [facility] | | | | | | LABORATORY | | | | | | SERVICES, | | | | | | CORE | | + + + + + + | MCV | 97.7 (H) | 80.0 - 96.0 fL | [facility] | | | | | | LABORATORY | | | | | | SERVICES, | | | | | | CORE | | + + + + + + | MCHC | 31.3 | 33.0 - 35.5 | [facility] | | | | | g/dL | LABORATORY | | | | | | SERVICES, | | | | | | CORE | | + + + + + + | RDW SD | 49.1 (H) | 35.1 - 46.3 fL | [facility] | | | | | | LABORATORY | | | | | | SERVICES, | | | | | | CORE | | + + + + + + | PLATELET | 270 | 150 - 400 K/cu | [facility] [...] + + + + | NEUTROPHIL | 69.3 | 50.0 - 70.0 % | [facility] | | | % | | | LABORATORY | | | | | | SERVICES, | | | | | | CORE | | + + + + + + | LYMPHOCYTE | 19.7 | 18.0 - 42.0 % | [facility] | | | % | | | LABORATORY | | | | | | SERVICES, | | | | | | CORE | | + + + + + + | MONOCYTE % | 8.3 | 3.5 - 9.0 % | [facility] | | | | | | LABORATORY | | | | | | SERVICES, | | | | | | CORE | | + + + + + + | EOS % | 1.2 | 1.0 - 3.0 % | [facility] | | | | | | LABORATORY | | | | | | SERVICES, | | | | | | CORE | | + + + + + + | BASO % | 0.8 | 0.0 - 2.0 % | [facility] | | | | | | LABORATORY | | | | | | SERVICES, | | | | | | CORE | | + + + + + + | IG% | 0.7 (H)Comment: Immature | 0.0 - 0.6 % | [...] + + + + | NEUTROPHIL | 5.26 | 1.80 - 7.70 | [facility] | | | # | | K/cu mm | LABORATORY | | | | | | SERVICES, | | | | | | CORE | | + + + + + + | LYMPHOCYTE | 1.49 | 1.00 - 4.80 | [facility] | | | # | | K/cu mm | LABORATORY | | | | | | SERVICES, | | | | | | CORE | | + + + + + + | MONOCYTE # | 0.63 | 0.10 - 0.90 | [facility] | | | | | K/cu mm | LABORATORY | | | | | | SERVICES, | | | | | | CORE | | + + + + + + | EOS # | 0.09 | 0.00 - 0.50 | [facility] | [...] + + + + | IG# | 0.05 (H) | 0.00 - 0.03 | [facility] [...] | + + + + + | [facility] | [address] | [place] [address] | | | SERVICES, CORE | [address] | | | + + + + + C-REACTIVE PROTEIN (06/15/2015 12:05 PM PST) + [...] + + | [facility] | [address] | [place] [address] | | | SERVICES, CORE | [address] [...] | + + + + + | [facility] | [address] | [place] [address] | | | SERVICES, CORE | [address] [...] | | | LABORATORY | | | [place] | | | SERVICES, | | | [...] [facility] | [address] | [place] [address] | | | SERVICES, CORE | [address] | | | + + + + + documented in this encounter Visit Diagnoses + + | Diagnosis | + + | Rheumatoid arthritis (HCC) | + + documented in this encounter"
--- OUTSIDE RECORDS SUMMARY | ~2019-05-17 | XMS | Encounter Summary ---
Demographics + + + | Address | [address] | | | [place] [address] | + + + | Home Phone [...] | Author | [facility] | | | and Azana | + + + | Organization | [facility] | | | and [...] [place], [place] | | | | | [address] | | + + + + + | Helena Doherty | ECON | [place], | | | | | [place] [address] | | + + + + + Care Team Providers + +------+ + | Care Bender Machine Name | Role | Phone | + [...] | | Degenerative | [address] | [facility], [place] | | | | | disc | [place] | [address] Phone: | | | | | disease, | [address] | [phone] | | | | | lumbar | Phone: | Fax: | | | | | Lumbar | [phone] | [phone] | | | | | foraminal | Fax: | | | | | | stenosis | [phone] | | | | | | Fibromyalgia [...] + + | 01/24/ | Office | [facility] | [place], | Fibromyalgia | | 2017 | Visit | MED CTR THERAPY PT | FABIAN Castillo [address] | (Primary Dx); | | | | OP [address] | [facility], | Sacroiliitis (HCC) | | | | [place] | [place] [address] | | | | | [address] | [phone] | | | | | [phone] | | | | | | | Aiyana Fish S, PT | | | | | | [address] | | | | | | [place] | | | | | | [id number] | | | | | | | [...] Plan is to continue PT if the ga ed is there following her surgery. Goals: [...] percent impaired, limited or restricted Treatment Plan/Interventions 90801 - Therapeutic [id number] - Therapeutic Jhucirgopb15229 - Manual Nocsyrr26925 - Liza f Care/Home Management Electronically signed by: Aiyana Fish PT, 01/24/2017 14:33 Patient Name: Ashly Santiago/: 1940/ iyana Fish PT - 01/24/2017 1:00 PM PDT [facility] CTR THERAPY PT OP [address] [place] [address] Physical Therapy Progress Assessment Date: 01/24/2017 Patient Information Patient Name: Ashly Santiago Date of : 1940 Age: 77 y.o. Encounter Diagnoses Code Name Primary? M79.7 Fibromyalgia Yes M46.1 Sacroiliitis (HCC) Date of Onset: 06/08/2016 Referring Provider: Anna Aponte PA-C Rehab Precautions Flowsheet Row Office Visit from 10/19/2016 in [facility] CTR THERAPY PT OP Rehab Precautions Precautions None Rehab Learning Style Flowsheet Row Office Visit from 10/19/2016 in [facility] CTR THERAPY PT OP Learning Style [...] From: 01/24/2017 Certification To: 04/26/2017 Treatment Plan/Interventions 38213 - Therapeutic Fkxiekfz40727 - Therapeutic Dvlkltlocv17853 - Manual Ujpizcn39396 - Liza f Care/Home Management Patient and/or [...] | | | | | [place] [address] | | | | | | [phone] | | | | | | | | | | | | Core SuckerNaomi | | +--------+ + + + + [...]
--- OUTSIDE RECORDS SUMMARY | ~2019-05-17 | XMS | Encounter Summary ---
Demographics + + + | Address | [address] | | | [place] [address] | + + + | Home Phone [...] Author | [facility] | | | and Azana | + + + | Organization | [facility] | | | [...] [place], [place] | | | | | [address] | | + + + + + | [place] Doherty | ECON | [place], | | | | | [place] [address] | | + + + + + Care Team Providers + +------+ + | Care Sea Captain Name | Role | Phone | + [...] | +--------+ + + + + | 11/22/ | Telephone | [facility] | Dimitri Lucas | Procedure | | 2019 | | NEUROSURGERY [address] | | | | | [address] | [address] [place] | | | | | [place] | [place] [address] | | | | | [address] | [phone] | | | | | [phone] | | | +--------+ + + + [...] | | | | | | [place] [id number] | | | | | | [phone] | | | | | | | | | | | | ArbitratorNaomi | | +--------+ + + + + documented as of this encounter Visit Diagnoses Not on filedocumented in this encounter"
--- OUTSIDE RECORDS SUMMARY | ~2019-05-17 | XMS | Encounter Summary ---
Demographics + + + | Address | [address] | | | [place] [address] | + + + | Home Phone [...] + + + | Author | [facility] | + + + | Organization | [facility] | + + + | Address | Unknown | + + + | Phone | Unavailable | + + + Support + + +---------+ + | Name | Relationship | Address | Phone | + + +---------+ + | Alon Santiago | ECON | Unknown | | + + +---------+ + Care Team Providers + +------+ + | Care Geospatial Intelligence Analyst Name | Role | Phone | [...] 11/17/ | MyChart | Rheumatology at | Rosas Lucia MD | RE: [place] [facility] | | 2016 | Encounter | [facility] | [address] [facility] | [place] | | | | [address] | [address] [place], | | | | | Am[place] Chatman Mailcode: | [place] [address] | | | | | [address] Physician's | [phone] | | | | | [address], [address] Floor | | | | | | [place], [place] | | | | | | [address] | | | | | | [phone] | | | +--------+ + + + [...]
--- OUTSIDE RECORDS SUMMARY | ~2019-05-17 | XMS | Encounter Summary ---
Demographics + + + | Address | [address] | | | [place] [address] | + + + | Home Phone | | + + + | Preferred Language | Unknown | + + + | Marital Status | | + + + | Confucianist Affiliation | [id number] | + + + | Race | Unknown | + + + | Ethnic Group | Unknown | + + + Author + + + | Author | [facility] | | | and Azana | + + + | Organization | [facility] [...] [place], [place] | | | | | [address] | | + + + + + | Helena Doherty | ECON | [place], | | | | | [place] [address] | | + + + + + Care Team Providers + +------+ + | Care Wide Area Network Systems Administrator Name | Role | Phone | [...] | Degenerative | [address] | [place], [place] | | | | | disc | [place] | [address] Phone: | | | | | disease, | [address] | [phone] | | | | | lumbar | Phone: | Fax: | | | | | Lumbar | [phone] | [phone] | | | | | foraminal | Fax: | | | | | | stenosis | [phone] | | | | | | Fibromyalgia [...] Description | +--------+---------+ + + + | 12/20/ | Office | [facility] | [place], | Fibromyalgia | | 2017 | Visit | MED CTR THERAPY PT | FABIAN Castillo [address] | (Primary Dx); | | | | OP [address] | [facility], | Sacroiliitis (HCC) | | | | [place] | [place] [address] | | | | | [address] | [phone] | | | | | [phone] | | | | | | | Aiyana Fish S, PT | | | | | | [address] | | | | | | [place] | | | | | | [phone] | | | | | | | [...] encounter Progress Notes Aiyana Fish, PT - 12/20/2016 1:00 PM PDTFormatting of this note might be different fro m the original. [facility] THERAPY PT OP [address] [place] [address] Physical Therapy Daily Treatment Note Date: 12/20/2016 Patient Information Patient Name: Ashly Santiago Date of : 1940 Age: 76 y.o. Encounter Diagnoses Code Name Primary? M79.7 Fibromyalgia Yes M46.1 Sacroiliitis (HCC) Date of Onset: 06/08/2016 Referring Provider: Anna Aponte PA-C Rehab Precautions Flowsheet Row Office Visit from 10/19/2016 in [facility] PT OP Rehab Precautions Precautions None Rehab Learning Style Flowsheet Row Office Visit from 10/19/2016 in [facility]ER[facility] PT OP Learning Style Patient's Optimum Learning Style listening, reading, observation, performance of task Start Time: 1303 Stop time: 1409 Duration: 66 minutes Timed Treatment Codes: 66 minutes # of PT Visits to Date: 6 Subjective: Pt reports that she took a trip to [facility] to meet up with her daughter and she had to walk a l ot too which went well. She is able to do some gardening for short periods of time Pain Assessment: Pain Rating Pre Assessment: 3 Location: right thoracic spine and right flank Objective: Manual Treatment: Myofascial release and positional release therapy including dural tube, s acrum, left lumbar-sacral spine, cervical spine and vertical membrane system Assessment: Good response to treatment. Fascial release resulted in improved mobility in the left low back and hip following the session. Fascial strain pattern in the mid thoracic-left LS spin e is resolving. This is a very strong pattern and as it releases the pain in her low back a nd hip is improving. Plan: Continue with manual therapy and development of home program. Progress her with the next y oga stretches. Electronically signed by: Aiyana Fish, PT, 12/20/2016 14:12 Patient Name: Ashly Santiago/: 1940/ documented in [...] | | | | | [place] [address] | | | | | | [phone] | | | | | | | | | | | | Education And Development ManagerNaomi | | +--------+ + + + + documented as of this encounter Visit Diagnoses + + | Diagnosis | + + | Fibromyalgia - Primary Mylagia and myositis, unspecified | + + | Sacroiliitis (HCC) Sacroiliitis, not elsewhere classified | + + documented in this encounter"
--- OUTSIDE RECORDS SUMMARY | ~2019-05-17 | XMS | Encounter Summary ---
Demographics + + + | Address | [address] | | | [place] [address] | + + + | Home Phone [...] + + | Author | [facility] | | | and Azana | + + + | Organization | [facility] | | [...] [place], [place] | | | | | [address] | | + + + + + | Helena Doherty | ECON | [place], | | | | | [place] [address] | | + + + + + Care Team Providers + +------+ + | Care Roof Truss Builder Name | Role | Phone | + +------+ + | Nathan Luevano DO | PCP | | + +------+ + Encounter Details +--------+ + + + + | Date | Type | Department | Care Team | Description | +--------+ + + + + | 01/13/ | Orders Only | [facility] | Provider, | Chronic kidney | | 2018 | | SYSTEM GENERIC OP | MD [address] | disease, stage III | | | | CONVERSION [address] | [address] | (moderate) (HCC); | | | | [address] [place], [place] | [place] [address] | Essential (primary) | | | | [address] | | hypertension; | | | | [phone] | | Proteinuria; | | | | [...] | | | | | [place] [address] | | | | | | [phone] | | | | | | | | | | | | Director Motion PictureNaomi | | +--------+ + + + + [...] Expires: | | | | | (moderate) ([facility]) | 11/07/2019 | | | | | [...] Expires: | | | | | (moderate) ([facility]) | 11/07/2019 | | | | | [...] Expires: | | | | | (moderate) ([facility]) | 11/07/2019 | | | | | [...]
--- OUTSIDE RECORDS SUMMARY | ~2019-05-17 | XMS | Encounter Summary ---
Demographics + + + | Address | [address] | | | [place] [address] | + + + | Home Phone | | + + + | Preferred Language | Unknown | + + + | Marital Status | | + + + | Buddhist Affiliation | 1077 | + + + | Race | Unknown | + + + | Ethnic Group | Unknown | + + + Author + + + | Author | [facility] | | | and Azana | + + + | Organization | [facility] [...] [place], [place] | | | | | [address] | | + + + + + | Helena Doherty | ECON | [place], | | | | | [place] [address] | | + + + + + Care Team Providers + +------+ + | Care Slunk Skinner Name | Role | Phone | + +------+ + | Nathan Luevano DO | PCP | | + +------+ + Encounter Details +--------+ + + + + | Date | Type | Department | Care Team | Description | +--------+ + + + + | 08/01/ | Orders Only | [facility] | Agusto Pereira MD | Cervical | | 2019 | | NEUROSURGERY [address] | [address] | radiculopathy | | | | [address] | [facility] [place] [address] | (Primary Dx); Lumbar | | | | [place] | [phone] | radiculopathy; | | | | [address] | | Essential | | | | [phone] | | hypertension; | | | | | | Gastroesophageal | | | | | | reflux disease, | | | | | | esophagitis presence | | | | | | not specified; | | | | | | Hearing loss, | | | | | | unspecified hearing | | | | | | loss type, | | | | | | unspecified | | | | | | laterality; H/O PONV | | | | | | Postoperative | | | | | | nausea and vomiting; | | | | | | Spondylolisthesis | | | | | | of cervical region; | | | | | | Neck pain; Foraminal | | | | | | stenosis of | | | | | | cervical region; | | | | | | Trigger point of | | | | | | neck; Trochanteric | | | | | | bursitis of both | | | | | | hips; Change in | | | | | | bowel habits; S/P | | | | | | lumbar fusion; Other | | | | | | idiopathic | | | | | | scoliosis, lumbar | | | | | | region; Scoliosis of | | | | | [...] [place] | | | | | | [place] [address] | | | | | | [phone] | | | | | | | | | | | | Service Delivery Manager, [facility] | | +--------+ + + + + documented as of this encounter Visit Diagnoses + + | Diagnosis | + + | Cervical radiculopathy - Primary Brachial neuritis or radiculitis nos | + + | Lumbar radiculopathy Thoracic or lumbosacral neuritis or radiculitis, unspecified | + + | Essential hypertension Unspecified essential hypertension | + + | Gastroesophageal reflux disease, esophagitis presence not specified | + + | Hearing loss, unspecified hearing loss type, unspecified laterality | + + | H/O PONV Postoperative nausea and vomiting | + + | Spondylolisthesis of cervical region Acquired spondylolisthesis | + + | Neck pain Cervicalgia | + + | Foraminal stenosis of cervical region Spinal stenosis in cervical region | + + | Trigger point of neck Cervicalgia | + + | Trochanteric bursitis of both hips Enthesopathy of hip region | + + | Change in bowel habits Other symptoms involving digestive system | + + | S/P lumbar fusion Arthrodesis status | + + | Other idiopathic scoliosis, lumbar region | + + | Scoliosis of lumbar spine, unspecified scoliosis type | + + documented in this encounter"
--- OUTSIDE RECORDS SUMMARY | ~2019-05-17 | XMS | Encounter Summary ---
Demographics + + + | Address | [address] | | | [place] [address] | + + + | Home Phone | | + + + | Preferred Language | Unknown | + + + | Marital Status | | + + + | Synagogue Affiliation | Unknown | + + + [...] Providers + +------+ + | Care Supervisor Bakery Sanitation Name | Role | Phone | + [...] | | | Amara Chatman Mailcode: | [place], [place] | | | | | [address] Physician's | [address] | | | | | [place], [facility] Floor | [phone] | | | | | [place], [place] | | | | | | [address] | | | | | | [phone] | | | +--------+ + + + [...]
--- OUTSIDE RECORDS SUMMARY | ~2019-05-17 | XMS | Encounter Summary ---
Demographics + + + | Address | [address] | | | [place] [address] | + + + | Home Phone [...] | Author | [facility] | | | and Azana | + + + | Organization | [facility] | | [...] [place], [place] | | | | | [address] | | + + + + + | Helena Doherty | ECON | [place], | | | | | [place] [address] | | + + + + + Care Team Providers + +------+ + | Care Tar Distributor Operator Name | Role | Phone | [...] | Specialty | Physical | Diagnoses | Ruben, | [facility] | | | Services | Therapy | Cervical | [facility] | | | Required | | dystonia | [address] | PHYSICAL | | | | | Procedures | [address] | THERAPY [address] | | | | | HIM 01/23 | [address] | [place] | | | | | | [place], | [place] | | | | | | [place] [address] | [address] | | | | | | Phone: | Phone: | | | | | | [phone] | [phone] | | | | | | Fax: | Fax: | | | | | | [phone] | [phone] | +--------+ + + + + + Reason for Visit + + + | Reason | Comments | + + + | Follow-up | Injection: C7-T1 ILESI Right of Mid. 12/20/17 | + + + Encounter Details +--------+---------+ + + + | Date | Type | Department | Care Team | Description | +--------+---------+ + + + | 01/17/ | Office | [facility] | Andrew Miranda, | Cervical dystonia | | 2018 | Visit | PHYSIATRY [address] | PA-C [address] | (Primary Dx); | | | | [place], | [address] [place] | Cervical | | | | [place] [address] | [place] [address] | radiculopathy | | | | [phone] | [phone] | | | | | | | [...] + + + | Blood Pressure | 109/58 | 01/17/2018 1:44 PM | | | | | PDT | | + + + + + | Pulse | 84 | 01/17/2018 1:44 PM | | | | | PDT [...] | 87.1 kg (192 lb 0.3 | 01/17/2018 1:44 PM | | | | oz) | PDT | | + + + + + | Height | 167.6 cm (5' 6") | 01/17/2018 1:44 PM | | | | | PDT | | + + + + + | Body Mass Index | 30.99 | 01/17/2018 1:44 PM | | | | | PDT | | + + + + + documented in this encounter Patient Instructions Patient Instructions Andrew Miranda PA-C - 01/17/2018 1:40 PM PDTFormatting of this note m ight be different from the original. Meloxicam taken with food 1x/day -------- PT order sent to [facility] -------- Trigger point injections, Date January 21Sunday 12:40pm with Andrew Miranda PA-C -------- Follow up with Andrew Miranda PA-C after completion of physical therapy or for repeat trigge r point injections Trigger Point Injection The cause of your muscle pain or spasms may be one or more trigger points. Your healthcare provider may decide to inject the painful spots to relax the muscle. This can help relieve y our pain. Relaxing the muscle can also make movement easier. You may then be able to exercis e to strengthen the muscle and help it heal. What is a trigger point? A trigger point is a tight, painful knot of muscle fiber. It can form where a muscle is strained or injured. The knot can sometimes be felt under the skin. A trigger point is ve ry tender to the touch. Pain may also spread to other parts of the affected muscle. Muscles around a knee, shoulder blade, or other bones are prone to trigger points. This is because t hese muscles are more likely to be injured. Injecting a trigger point can help relax the affected muscle and relieve pain. About the injections Any muscle in the body can have one or more trigger points. Several injections may be neede d in each trigger point to best relieve pain. These injections may be given in sessions abou t 2weeks apart, depending on the preference of your healthcare provider. In some cases, yo u may not feel much change in your symptoms until after the third injection. Risks and possible complications Risks and complications are very rare, but may include: Infection Bleeding Lung puncture (pneumothorax) Nerve damage Date Last Reviewed: 03/15/201519997311-5302 [employer]. [address] [place] [address], [place] [address]. All righ ts reserved. This information is not intended as a substitute for professional medical care. Always follow your healthcare professional's instructions. documented in this encounter Progress Notes Andrew Miranda PA-C - 01/17/2018 1:40 PM PDTFormatting of this note might be different fro m the original. CHIEF COMPLAINT: Chief Complaint Patient presents with Follow-up Injection: C7-T1 ILESI Right of Mid. 12/20/17 HISTORY OF PRESENT ILLNESS: Ashly Santiago is a 78 y.o. female being seen today for f ollow up after receiving a C7/T1 ILESI on 12/20/17. Patient reports approximately 0% relief s deanna receiving injection on date: 12/20/17. She has seen us in the past for low back pain however she underwent a lumbar fusion with Dr Vick Pereira, L4-S1 in 2017. Since the symptoms began, she has noticed that symptoms have been chronic and stable. She d escribes the pain as a aching, sharp and shooting feeling. She rates the pain as severe. Her symptoms worsen with standing, walking. Her symptoms improve with rest. She does report radiation into the arms, right posterior shoulder. She does not have bowel and bladder [...] Surgical History: Procedure Laterality Date APPENDECTOMY 1960 [place] BLADDER SUSPENSION 2006 with Rectocele repair; Dr. Reid and Dr. Watkins BUNIONECTOMY 04/10/2007 Radames Rinaldi; Dr. Db Berrios CATARACT REMOVAL Bilateral 1996 [facility] CHOLECYSTECTOMY, LAPAROSCOPIC 07/11/2011 Dr. Marquez COLONOSCOPY 2003 [facility] COLONOSCOPY N/A 05/23/2017 Procedure: COLONOSCOPY; Surgeon: Joshua Hilliard MD; Location: [facility] MEDICAL PROCEDURE UNIT EGD AND COLONOSCOPY 07/06/[address] [facility] [address] Jc EGD AND COLONOSCOPY 2009 ELECTROCARDIOGRAM 05/19/2009 Dr. Boss ELECTROCARDIOGRAM 08/12/2009 Dr. Radha Stafford[facility]/07[facility]2011 [facility]; Dr. Marquze FINGER TRIGGER RELEASE Right 05/28/2014 Middle finger; Dr. Donta [place] FINGER TRIGGER RELEASE HEEL SPUR SURGERY Right 1997 Dr. Berrios HYSTERECTOMY, TOTAL ABDOMINAL 1972 [place] LUMBAR SPINE SURGERY Anterior 02/14/2017 Procedure: L4-5 Lateral Anterior Interbody Fusion, L5-S1 Transforaminal Lumbar Interbody F usion; Surgeon: Agusto Pereira MD; Location: [facility] MAIN OR NASAL SEPTUM SURGERY 06/06/2016 Dr. Lindsey; [facility] NEUROMA SURGERY Left 1998 PERINEAL SKIN BRIDGE 02/[address] Reid RETINAL DETACHMENT SURGERY 1997 Dr. Andrade ROTATOR CUFF REPAIR Right 04/20/2015 Dr. Jesus TONSILLECTOMY 1944 [place], [place] CURRENT MEDICATIONS: Current Outpatient Prescriptions Medication [...] Take by mouth. L-Lysine 50 mg daily meloxicam (MOBIC) 15 mg tablet Take 1 tablet by mouth Daily. Do not take with other NSA IDS 30 tablet 0 methotrexate 2.5 mg tablet Take 10 mg [...] joint pain/arthritis, +Rheumatoid Arthritis PHYSICAL EXAMINATION: Vitals: 01/17/18 1344 BP: 109/58 Pulse: 84 PainSc: 2 PainLoc: Neck Body mass index is 30.99 kg/m. GENERAL: [...] has no apparent deficits with short or skilled nursing memory. She has appropriate fund of knowledge Cranial nerves 2-12 appear grossly intact. Sensory exam does show diminished sensation to light touch in the left lower extremities. MUSCULOSKELETAL There is no tenderness in the midline of the cervical or thoracic spine. T here is no major palpable deformity of the spine. Range of motion testing of the cervical spine was unremarkable. Cervical facet loading positive. Spurling sign was negative. Increased muscle tone over bilateral traps and levator scaps. Shoulder examination shows well preserved range of [...] the lordotic curve worsening C5-C6. ASSESSMENT: 1. Cervical dystonia 2. Cervical radiculopathy PLAN: 1) Today we discussed the patient's differential diagnosis with the likely primary issue be ing neck pain. Patient's description of symptoms, physical exam, and imaging suggest this d iagnosis at this time. 2) I counseled patient on treatment options which included conservative self management usi ng OTC NSAIDs/Ice and heat packs, physical therapy, prescription medications, epidural stero id injection, as well as possible surgical intervention. 3) Imaging: as above 4) The patient has had significant conservative care including medications (NSAIDS and narc otics), PT (multiple sessions over the years) and care process manager. Unfortunately Ashly Yang continues to have significant discomfort. It appears to me that the pain is prim arily coming from cervical dystonia bilaterally. I did feel that Ashly Santiago would be a good candidate for trigger point injectio ns. I did feel that Ashly Santiago would be a good candidate for medication: meloxicam 15mg. I have placed order for physical therapy to treat her cervical dystonia and neck pain. 5) Patient will follow up with me in next week for trigger point injections and then after the completion of physical therapy discuss any imaging and/or progress with today's treatmen t plan. 6) If current treatment plan is insufficient for symptom relief we could try MRI of cervica l spine to determine severity of possible facet arthritis/cervical facet injections with Dr. Beth. I spent 30 minutes in visit with Ashly Santiago today with the majority of time spent counselling the patient on her diagnosis, options for her care, and coordinating her care. ELECTRONICALLY SIGNED BY: Andrew Miranda PA-C, 01/17/2018 CC: Yared Luevanotronically signed by Andrew Miranda PA-C at 01/17/2018 2:28 PM [facility] umented in this encounter Plan of Treatment +--------+ + + + + | Date | Type | Specialty | Care Team | Description | +--------+ + + + + | 05/19/ | Hospital | Radiology | Dennys Pineda PA-C | | | 2019 | Encounter | | [address] | | | | | | [address] | | | | | | [place] [address] | | | | | | [phone] | | | | | | | | | | | | Director Of MaterialsNaomi | | +--------+ + + + + + + +--------+ + + | Name | Type | Priori | Associated Diagnoses | Order Schedule | | | | ty | | | + + +--------+ + + | AMB REFERRAL TO [facility] | Outpatient | Routin | Cervical dystonia | Ordered: 01/17/2018 | | PHYSICAL THERAPY | Referral | e | | | + + +--------+ + + documented as of this encounter Visit Diagnoses + + | Diagnosis | + + | Cervical dystonia - Primary Spasmodic torticollis | + + | Cervical radiculopathy Brachial neuritis or radiculitis nos | + + documented in this encounter
--- OUTSIDE RECORDS SUMMARY | ~2019-05-17 | XMS | Encounter Summary ---
Demographics + + + | Address | [address] | | | [place] [address] | + + + | Home Phone [...] Author | [facility] | | | and Azana | + + + | Organization | [facility] | | | and [...] [place], [place] | | | | | [address] | | + + + + + | Helena Doherty | ECON | [place], | | | | | [place] [address] | | + + + + + Care Team Providers + +------+ + | Care Water Operator Name | Role | Phone | + +------+ + | Nathan Luevano DO | PCP | | + +------+ + Reason for Visit + + + | Reason | Comments | + + + | New Patient | | + + + | Diarrhea | | + + + | Abdominal Pain | | + + + | Bloated [...] | | | ogy | Diarrhea, | Nathan DO | Joshua Parekh MD | | | | | unspecified | [address] | [address], | | | | | Procedures | On[address] Vel[address] | [address] | | | | | Office | [address] | [place], | | | | | Visit | [place], | [place] [address] | | | | | | [place] | Phone: | | | | | | [address] | [phone] | | | | | | Phone: | Fax: | | | | | | [phone] | [phone] | | | | | | Fax: | | | | | | | [phone] | | +--------+--------+ + + + + Encounter Details +--------+---------+ + + + | Date | Type | Department | Care Team | Description | +--------+---------+ + + + | 05/09/ | Office | [facility] | Joshua Hilliard MD | Functional diarrhea | | 2017 | Visit | GASTROENTEROLOGY | [address] | (Primary Dx) | | | | [address] [facility] | [address] [place] | | | | | [address] [place], [place] | [address] | | | | | [address] | | | | | | [phone] | | | +--------+---------+ + + + [...] + + + | Blood Pressure | 130/62 | 05/09/2017 2:37 PM | | | | | PST | | + + + + + | Pulse | 94 | 05/09/2017 2:37 PM | | | | | PST | | + + + + + | Temperature | - | - | | + + + + + | Respiratory Rate | 16 | 05/09/2017 2:37 PM | | | | | PST | | + + + + + | Oxygen Saturation | - | - | | + + + + + | Inhaled Oxygen | - | - | | | Concentration | | | | + + + + + | Weight | 83.4 kg (183 lb 13.8 | 05/09/2017 2:37 PM | | | | oz) | PST | | + + + + + | Height | 167.6 cm (5' 6") | 05/09/2017 2:37 PM | | | | | PST | | + + + + + | Body Mass Index | 29.68 | 05/09/2017 2:37 PM | | | | | PST | | + + + + + documented in this encounter Plan of Treatment +--------+ + + + + | Date | Type | Specialty | Care Team | Description | +--------+ + + + + | 05/19/ | Hospital | Radiology | Dennys Pineda PA-C | | | 2019 | Encounter | | [address] [facility] | | | | | | [address] [facility] | | | | | | [place] [address] | | | | | | [phone] | | | | | | | | | | | | Composing Room Machinist Apprentice, [facility] | | +--------+ + + + + documented as of this encounter Visit Diagnoses + + | Diagnosis | + + | Functional diarrhea - Primary | + + documented in this encounter
--- OUTSIDE RECORDS SUMMARY | ~2019-05-17 | XMS | Encounter Summary ---
Demographics + + + | Address | [address] | | | [place] [address] | + + + | Home Phone | | + + + | Preferred Language | Unknown | + + + | Marital Status | | + + + | Methodist Affiliation | 1077 | + + + | Race | Unknown | + + + | Ethnic Group | Unknown | + + + Author + + + | Author | [facility] | | | and Azana | + + + | Organization | [facility] | | [...] [place], [place] | | | | | [address] | | + + + + + | Helena Doherty | ECON | [place], | | | | | [place] [address] | | + + + + + Care Team Providers + +------+ + | Care Jig Boring Machine Set Up Operator Name | Role | [...] | y Scoliosis | [address] | [address] Phone: | | | | | of lumbar | Chery Gottlieb, | [phone] | | | | | spine, | [place] [address] | Fax: | | | | | unspecified | Phone: | [phone] | | | | | scoliosis | [phone] | | | | | | type | Fax: | | | | | | Sacroiliitis | [phone] | | | | | | (HCC) | | | +--------+ + + + + + Encounter Details +--------+---------+ + + + | Date | Type | Department | Care Team | Description | +--------+---------+ + + + | 11/28/ | Office | [facility] | Yanndajose manuelcz, | DEGENERATIVE DISC | | 2018 | Visit | PHYSIATRY [address] | FABIAN Castillo [address] | DISEASE, CERVICAL | | | | [place], | [place], | SPINE (Primary Dx); | | | | [place] [address] | [place] [address] | Cervical | | | | [phone] | [phone] | radiculopathy; | | | | | [...] of the procedure you must provide a rail car driver to take you home. For all [...] Surgical History: Procedure Laterality Date APPENDECTOMY 1959 [place] BLADDER SUSPENSION 2005 with Rectocele repair; Dr. Reid and Dr. Watkins BUNIONECTOMY 04/10/2007 Radames Bunalma; Dr. Db Berrios CATARACT REMOVAL Bilateral 1996 [facility] CHOLECYSTECTOMY, LAPAROSCOPIC 07/11/2011 Dr. Marquez COLONOSCOPY 2003 [facility] COLONOSCOPY N/A 05/23/2017 Procedure: COLONOSCOPY; Surgeon: Joshua Hilliard MD; Location: [facility] MEDICAL PROCEDURE UNIT EGD AND COLONOSCOPY 07/06/2009 [facility]. Jc EGD AND COLONOSCOPY 2009 ELECTROCARDIOGRAM 05/19/2009 Dr. Boss ELECTROCARDIOGRAM 08/12/2009 Dr. Radha Stafford; [facility] ENDOSCOPY 07/07/2011 [facility]; Dr. Marquez FINGER TRIGGER RELEASE Right 05/28/2014 Middle finger; Dr. Longo Ste[place] FINGER TRIGGER RELEASE HEEL SPUR SURGERY Right 1997 Dr. Berrios HYSTERECTOMY, TOTAL ABDOMINAL 1972 [place] LUMBAR SPINE SURGERY Anterior 02/14/2017 Procedure: L4-5 Lateral Anterior Interbody Fusion, L5-S1 Transforaminal Lumbar Interbody F usion; Surgeon: Agusto Pereira MD; Location: [facility] MAIN OR NASAL SEPTUM SURGERY 06/06/2016 Dr. Lindsey; [facility] NEUROMA SURGERY Left 1998 PERINEAL SKIN BRIDGE [...] deficits with short or termite treater memory. 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 Unfortunately she cont inues to have significant [...] | | | | | | [place] [address] | | | | | | [phone] | | | | | | | | | | | | Clinic AssistantNaomi | | +--------+ + + + + [...]
--- OUTSIDE RECORDS SUMMARY | ~2019-05-17 | XMS | Encounter Summary ---
Demographics + + + | Address | [address] | | | [place] [address] | + + + | Home Phone [...] | [facility] | | | and Azana | + + + | Organization | [facility] | | | and [...] [place], [place] | | | | | [address] | | + + + + + | Helena Doherty | ECON | [place], | | | | | [place] [address] | | + + + + + Care Team Providers + +------+ + | Care Databases Computer Consultant Name | Role | Phone | + +------+ + | Nathan Luevano DO | PCP | | + +------+ + Reason for Visit +---------+ + | Reason | Comments | +---------+ + | Post Op | 3 month | +---------+ + Encounter Details +--------+---------+ + + + | Date | Type | Department | Care Team | Description | +--------+---------+ + + + | 05/16/ | Office | [facility] | Onesimo Oliveira | S/P lumbar fusion | | 2016 | Visit | NEUROSURGERY [address] | [address]ABIAN [address] | (Primary Dx); Lumbar | | | | [address] | [address] | foraminal stenosis; | | | | [place], [place] | [place], [place] | Lumbar | | | | [address] | [address] | radiculopathy; | | | | [phone] | | Scoliosis of lumbar | | | | | | spine, unspecified | | | | | | scoliosis type; | | | | | | Other idiopathic | | | | | | scoliosis, lumbar | | | | | | region | +--------+---------+ + + + Social History [...] + + + | Blood Pressure | 124/68 | 05/16/2017 2:52 PM | | | | | PST | | + + + + + | Pulse | 84 | 05/16/2017 2:52 PM | | | | | PST [...] + + + + | Weight | 86.1 kg (189 lb 13.1 | 05/16/2017 2:52 PM | | | | oz) | PST | | + + + + + | Height | 167.6 cm (5' 6") | 05/16/2017 2:52 PM | | | | | PST | | + + + + + | Body Mass Index | 30.64 | 05/16/2017 2:52 PM | | | | | PST | | + + + + + documented in this encounter Patient Instructions Patient Instructions Bridget Holt, Informatics Physician - 05/16/2017 2:30 PM PSTPlease be gin to slowly ween yourself out of your back braces as tolerated. documented in this encounter Progress Notes Onesimo Oliveira PA-C - 05/16/2017 2:30 PM PSTFormatting of this note might be differ ent from the original. Onesimo Oliveira PA-C [address] [facility] [address] [place], [place] [address] FAX: NEUROSURGERY FOLLOW-UP CHIEF COMPLAINT: Chief Complaint Patient presents with Post Op 3 month HISTORY OF PRESENT ILLNESS: The patient is a 77 y.o. female that had a lumbar fusion for r adiculopathy around 3 months ago. She returns and overall is doing well. The patient reports overall she feels as if her symptoms have improved post surgery. She does report within the last 3 weeks, in the morning, she experiences cramping that originates in the left low back and radiates down the inside of her leg. The patient reports this continues for a couple mi nutes until she stretches, and at that point the cramping ceases. Today she reports mild sharmila n, rating the pain as a 3/10 on a pain scale, located in her left low back. The patient atte mpts to walk as much as directed, but states she is limited in the amount she walks due to a rthritis in her feet. She inquired whether it would be possible for her to begin taking the medication diclofenac again, which was previously prescribed by her cemetery counselor. She aditya eves that if she can begin to take the medication diclofenac again, she will be able to walk more. Today she reports she is ready to stop wearing her brace. She is not taking pain medications at this point. The patient reports taking extra strengt h Tylenol during the day, as well as extra strength Tylenol PM in the evenings.She reports t he Tylenol does not help with her arthritis pain originating in her feet. The patient has had no issues with her surgical site. Today she reports she is still having difficulties concerning urinary frequency, but the fr equency has decreased some since her last visit. She reports she has started seeing a new Ur ologist in [place], Dr. Burris, for treatment of her urinary symptoms.The patient reports she is still having diarrhea, and is seeing Dr. Hilliard for treatment of her gastrointestinal symptoms. CURRENT MEDICATIONS: Current Outpatient Prescriptions Medication Sig Dispense Refill Acetaminophen (TYLENOL EXTRA STRENGTH PO) Take by mouth as needed. BIOTIN 5000 PO Take 1 tablet by mouth Daily. Cholecalciferol (VITAMIN D-3) 2000 units CAPS Take 2,000 Units by mouth Daily. Cyanocobalamin (VITAMIN B 12 PO) Take 2,000 mcg by mouth Daily. diclofenac (VOLTAREN) 1% GEL Apply 1 g topically 2 times daily. Diphenhydramine-APAP, sleep, (TYLENOL PM EXTRA STRENGTH PO) Take by mouth. FLUARIX QUADRIVALENT 0.5 ML vaccine injection (syringe) inject 0.5 milliliter intramusc ularly 0 folic acid 1 mg tablet Take 1 mg by mouth Daily. hydroxychloroquine (PLAQUENIL) 200 mg tablet Take 200 mg by mouth Daily. losartan-hydrochlorothiazide (HYZAAR) 50-12.5 MG per tablet Take 1 tablet by mouth Lee Ann y. LYSINE PO Take by mouth. L-Lysine 50 mg daily methotrexate 2.5 mg tablet Take 10 mg by mouth Once a week. mirabegron (MYRBETRIQ) 25 mg ER tablet Take 25 mg by mouth Daily. Multiple Vitamins-Minerals (PRESERVISION AREDS 2) CAPS Take 1 capsule by mouth 2 times daily. NALTREXONE HCL PO Take 4.5 mg by mouth Daily. Nutritional Supplements (ESTROVEN PO) Take 1 tablet by mouth Daily. psyllium (METAMUCIL) 0.52 g capsule Take 0.52 g by mouth Daily. raNITIdine (ZANTAC) 150 mg tablet Take 150 mg by mouth 2 times daily. sodium sulfate-potassium sulfate-magnesium sulfate (SUPREP BOWEL PREP KIT) oral solutio n Take 177 mLs by mouth See Admin Instructions. Drink one bottle at 4PM day prior to procedu re and 2ND bottle at 6AM day of procedure. 1 kit 0 No current facility-administered medications for this visit. [...] Nausea Only and Other (See Comments) Dizziness Isosorbide Dinitrate Solifenacin Other (See Comments) Reaction: Choking Adhesive & Tape Itching and Rash Citalopram [...] muscle aching, change in walk, pain in neck. PSYCHIATRIC: No depression, + sleep disorders, no anxiety, no bipolar disorder, no psychot ic episodes. CARDIOVASCULAR: No heart attacks, no heart murmur, no heart fluttering, no chest pain+ ank le swelling. LUNG DISEASE: No shortness of breath, no cough, no tuberculosis, no bloody cough, no asth ma, no emphysema/COPD. GASTROINTESTINAL: + bowel disease, no nausea or vomiting, no rectal bleeding, no constipa tion, no stool incontinence, no liver disease, no gallbladder disease, +abdominal pain, no u lcers. KIDNEY DISEASE: + urinary frequency, no painful or difficult urination, no incontinence, + bladder problems. ENDOCRINE: No diabetes, no thyroid disease, no [...] use drugs. INTERIM PHYSICAL EXAMINATION: Blood pressure 124/68, pulse 84, height 1.676 m (5' 6"), weight 86.1 kg (189 lb 13.1 oz), n ot currently . Body mass index is 30.64 kg/m. GENERAL: Ashly Santiago is in no [...] Name Primary? S/P lumbar fusion Yes Lumbar foraminal stenosis Lumbar radiculopathy Scoliosis of lumbar spine, unspecified scoliosis type Other idiopathic scoliosis, lumbar region Past Medical History: Diagnosis Date Abdominal pain Cervical radiculopathy Left Chronic pain Cough Depression Diarrhea Displacement of lumbar intervertebral disc Diverticulosis DJD (degenerative joint disease), lumbar Essential hypertension Fibromyalgia GERD (gastroesophageal reflux disease) Hard of hearing 02/12/2017 hearing aids Hypertensive arteriosclerotic cardiovascular disease IMPAIRED VISION Incontinence [...] seen in our office in 2 months termite inspector pain medication does not appear to be needed. I am hoping to see improvement over the coming weeks to months and plan to continue to foll ow this patient. The patient will follow-up in clinic in around 8 weeks for re-evaluation. ELECTRONICALLY SIGNED BY: Onesimo Oliveira PA-C, 05/16/2017 15:29 I, Onesimo Oliveira PA-C, personally performed the services described in this documentation , as scribed by Bridget Holt CMA in my presence, and it is both accurate and complete. Onesimo Oliveira PA-C 05/16/2017 documented in this encounter Plan of Treatment [...] | | | | | [place] [address] | | | | | | [phone] | | | | | | | | | | | | Irrigator OverheadNaomi | | +--------+ + + + + [...] + | Hong, Rad Results In - 11/15/2017 4:01 PM PDT [...] | | claudication | + + | Lumbar radiculopathy Thoracic or lumbosacral neuritis or radiculitis, unspecified | + + | Scoliosis of lumbar spine, unspecified scoliosis type | + + | Other idiopathic scoliosis, lumbar region | + + documented in this encounter
--- OUTSIDE RECORDS SUMMARY | ~2019-05-17 | XMS | Encounter Summary ---
Demographics + + + | Address | [address] | | | [place] [address] | + + + | Home Phone [...] Author | [facility] | | | and Azana | + + + | Organization | [facility] | | | and [...] [place], [place] | | | | | [address] | | + + + + + | Helena Doherty | ECON | [place], | | | | | [place] [address] | | + + + + + Care Team Providers + +------+ + | Care Wafer Substrate Tester Name | Role | Phone | [...] + | 08/05/ | Telephone | [facility] | Aiyana Fish, | Other | | 2019 | | [facility] | PT [address] | | | | | [address] | [place] | | | | | [place] | [address] | | | | | [address] | | | | | | [phone] | | | +--------+ + + + [...] | | | | | [place] [address] | | | | | | [phone] | | | | | | | | | | | | Manager Client SupportNaomi | | +--------+ + + + + documented as of this encounter Visit Diagnoses Not on filedocumented in this encounter"
--- OUTSIDE RECORDS SUMMARY | ~2019-05-17 | XMS | Encounter Summary ---
Demographics + + + | Address | [address] | | | [place] [address] | + + + | Home Phone [...] Team Providers + +------+ + | Care Windows Desktop Support Name | Role | Phone | + [...] 2016 | Encounter | Physicians Francy Donato, AERIAL TRAM OPERATOR [address] | | | | | [address] | [address] | | | | | Amara Chatman Mailcode: | [place], [place] | | | | | [address] Physician's | [address] | | | | | Francy, 4th Floor | [phone] | | | | | [place], [place] | | | | | | [address] | | | | | | [phone] | | | +--------+ + + + [...]
--- OUTSIDE RECORDS SUMMARY | ~2019-05-17 | XMS | Encounter Summary ---
Demographics + + + | Address | [address] [facility] [address] [facility] | | | [place] [address] | + + + | Home Phone [...] Author | [facility] | | | and Azana | + + + | Organization | [facility] | | | and Azana [...] [place], [place] | | | | | [address] | | + + + + + | Helena Doherty | ECON | [place], | | | | | [place] [address] | | + + + + + Care Team Providers + +------+ + | Care Head Of History Name | Role | Phone | + [...] [address] | | | | | [address], | [place], [place] | | | | | [place] [address] | [address] | | | | | [phone] | | | +--------+--------+ + + + [...] | | | | | [place] [address] | | | | | | [phone] | | | | | | | | | | | | Linen Room CustodianNaomi | | +--------+ + + + + documented as of this encounter Visit Diagnoses + + | Diagnosis | + + | Medication management - Primary Encounter for other specified aftercare | + + documented in this encounter"
--- OUTSIDE RECORDS SUMMARY | ~2019-05-17 | XMS | Encounter Summary ---
Demographics + + + | Address | [address] | | | [place] [address] | + + + | Home Phone | | + + + | Preferred Language | Unknown | + + + | Marital Status | | + + + | Faith Affiliation | 1077 | + + + | Race | Unknown | + + + | Ethnic Group | Unknown | + + + Author + + + | Author | [facility] | | | and Azana | + + + | Organization | [facility] | [...] [place], [place] | | | | | [address] | | + + + + + | Helena Doherty | ECON | [place], | | | | | [place] [address] | | + + + + + Care Team Providers + +------+ + | Care Water Softener Installer Name | Role | Phone | [...] | | [address] | [place] [address] | | | | | [place] | [phone] | | | | | [address] | | | | | | [phone] | | | +--------+ + + + [...] | | | | | [place] [address] | | | | | | [phone] | | | | | | | | | | | | Sales Person, Naomi | | +--------+ + + [...]
--- OUTSIDE RECORDS SUMMARY | ~2019-05-17 | XMS | Encounter Summary ---
Demographics + + + | Address | [address] [facility] [facility] | | | [place] [address] | + + + | Home Phone [...] Author | [facility] | | | and Azana | + + + | Organization | [facility] | | | and [...] [place], [place] | | | | | [address] | | + + + + + | Helena Doherty | ECON | [place], | | | | | [place] [address] | | + + + + + Care Team Providers + +------+ + | Care Director Case Name | Role | Phone | + [...] | Degenerative | [address] | [place], [place] | | | | | disc | [place] | [address] Phone: | | | | | disease, | [address] | [phone] | | | | | lumbar | Phone: | Fax: | | | | | Lumbar | [phone] | [phone] | | | | | foraminal | Fax: | | | | | | stenosis | [phone] | | | | | | Fibromyalgia [...] Description | +--------+---------+ + + + | 12/13/ | Office | [facility] | Fay, | Sacroiliitis (HCC) | | 2017 | Visit | MED CTR THERAPY PT | FABIAN Castillo [address] | (Primary Dx); | | | | OP [address] | [facility], | Fibromyalgia | | | | [place] | [place] [address] | | | | | [address] | [phone] | | | | | [phone] | | | | | | | Aiyana Fish S, PT | | | | | | [address] | | | | | | [place] | | | | | | [id number] | | | | | | | [...] encounter Progress Notes Aiyana Fish, PT - 12/13/2016 1:00 PM PDTFormatting of this note might be different fro m the original. [facility] CTR THERAPY PT OP [address] [place] [address] Physical Therapy Daily Treatment Note Date: 12/13/2016 Patient Information Patient Name: Ashly Santiago Date of : 1940 Age: 76 y.o. Encounter Diagnoses Code Name Primary? M46.1 Sacroiliitis (HCC) Yes M79.7 Fibromyalgia Date of Onset: 06/08/2016 Referring Provider: Anna Aponte PA-C Rehab Precautions Flowsheet Row Office Visit from 10/19/2016 in [facility] CTR THERAPY PT OP Rehab Precautions Precautions None Rehab Learning Style Flowsheet Row Office Visit from 10/19/2016 in [facility] CTR THERAPY PT OP Learning Style Patient's Optimum Learning Style listening, reading, observation, performance of task Start Time: 1305 Stop time: 1358 Duration: 53 minutes Timed Treatment Codes: 53 minutes # of PT Visits to Date: 5 Subjective: Pt reports that she has not had much low back pain or left hip pain at all this week. She is having more pain in the thoracic paraspinal mm. She has been doing the exercise I gave h er last week every day. Pain Assessment: Pain Rating Pre Assessment: 3 Location: mid thoracic spine and right flank Objective: Exercise: Seated forward fold for hamstring stretch and thor-lumbar PV mm stretch Manual Treatment: Myofascial release and positional release therapy: Dural tube mobilizati on, left hip and sacrum, mid thoracic spine and cervical spine Assessment: Significant dural and nerve root adhesions at spinal segments T7-9 causing some drag on the vertical membrane system and fascial tension into the left hip. Plan: Continue with manual therapy and development of home program. Progress with yoga stretches as tolerated. Electronically signed by: Aiyana Fish, PT, 12/13/2016 14:07 Patient Name: Ashly Real Santiago/: 1940/ documented [...] | | | | | [place] [address] | | | | | | [phone] | | | | | | | | | | | | Bacteriologist MedicalNaomi | | +--------+ + + + + documented as of this encounter Visit Diagnoses + + | Diagnosis | + + | Sacroiliitis (HCC) - Primary Sacroiliitis, not elsewhere classified | + + | Fibromyalgia Mylagia and myositis, unspecified | + + documented in this encounter"
--- OUTSIDE RECORDS SUMMARY | ~2019-05-17 | XMS | Encounter Summary ---
Demographics + + + | Address | [address] [address] [address] | | | [place] [address] | + + + | Home Phone | | + + + | Preferred Language | Unknown | + + + | Marital Status | | + + + | Restorationism Affiliation | 1077 | + + + | Race | Unknown | + + + | Ethnic Group | Unknown | + + + Author + + + | Author | [facility] | | | and Azana | + + + | Organization | [facility] | | [...] [place], [place] | | | | | [address] | | + + + + + | Helena Doherty | ECON | [place], | | | | | [place] [address] | | + + + + + Care Team Providers + +------+ + | Care Income Auditor Name | Role | Phone | [...] | | | Trochan[address] | [address] | [address] Phone: | | | | | bursitis, | [place], | [phone] | | | | | right hip | [place] | Fax: | | | | | Fibromyalgia | [address] | [phone] | | | | | Procedures | Phone: | | | | | | PT Noel w/ | [phone] | | | | | | Aiyana | Fax: | | | | | | [place] | [phone] | | +--------+--------+ + + + + Encounter Details +--------+---------+ + + + | Date | Type | Department | Care Team | Description | +--------+---------+ + + + | 05/13/ | Office | [facility] | Schmidtgall, | Neck pain (Primary | | 2018 | Visit | MED CTR THERAPY PT | Sophia Kingsley PA-C | Dx); Trochanteric | | | | OP [address] | [address] | bursitis of both | | | | [place] | [place], [place] | hips; Fibromyalgia | | | | [address] | [address] | | | | | [phone] | [phone] | | | | | | | | | | | | Aiyana Fish S, PT | | | | | | [address] | | | | | | [place] | | | | | | [address] | | | | | | | [...] be different fro m the original. [facility] CTR THERAPY PT OP [address] [place] [address] Physical Therapy Daily Treatment Note Date: 05/13/2018 Patient Information Patient Name: Ashly Santiago Date of : 1940 Age: 78 y.o. Encounter Diagnoses Code Name Primary? M54.2 Neck pain Yes M70.61, M70.62 Trochanteric bursitis of both hips M79.7 Fibromyalgia Date of Onset: 04/10/2018 Referring Provider: Sophia Bush PA-C Rehab Precautions Office Visit from 04/17/2018 in [facility] CTR THERAPY PT OP Rehab Precautions Precautions None Rehab Learning Style Office Visit from 04/17/2018 in [facility] CTR THERAPY PT OP Office Visit fro m 10/19/2016 in [facility] CTR THERAPY PT OP Learning [...] | | | | [address] [facility] | | | | | | [place] [address] | | | | | | [phone] | | | | | | | | | | | | Cut FilerNaomi | | +--------+ + + + + documented as of this encounter Visit Diagnoses + + | Diagnosis | + + | Neck pain - Primary Cervicalgia | + + | Trochanteric bursitis of both hips Enthesopathy of hip region | + + | Fibromyalgia Mylagia and myositis, unspecified | + + documented in this encounter
--- OUTSIDE RECORDS SUMMARY | ~2019-05-17 | XMS | Encounter Summary ---
Demographics + + + | Address | [address] [facility] | | | [place] [address] | + + + | Home Phone [...] | Author | [facility] | | | and Azana | + + + | Organization | [facility] | [...] [place], [place] | | | | | [address] | | + + + + + | Helena Doherty | ECON | [place], | | | | | [place] [address] | | + + + + + Care Team Providers + +------+ + | Care Upholstered Goods Crafter Name | Role | Phone | + [...] | | | bursitis, | Ave | [address] Phone: | | | | | left hip | Stef[place], | [phone] | | | | | M70.61 | [place] | Fax: | | | | | (ICD-10-CM) | [address] | [phone] | | | | | - | Phone: | | | | | | Trochanteric | [phone] | | | | | | bursitis, | Fax: | | | | | | right hip | [phone] | | | | | | M79.7 [...] + | 08/13/ | Office | [facility] | Aiyana Fish, | Fibromyalgia | | 2019 | Visit | [facility] | PT [address] | (Primary Dx); Neck | | | | [address] | [place] | pain; Trochanteric | | | | [place] | [address] | bursitis of both | | | | [address] | | hips | | | | [phone] | | | +--------+---------+ + + + [...] different fro m the original. [facility] [address] [place] [address] Physical Therapy Daily Treatment Note Date: 08/13/2018 Patient Information Patient Name: Ashly Santiago Date of : 1940 Age: 78 y.o. Encounter Diagnoses Code Name Primary? M79.7 Fibromyalgia Yes M54.2 Neck pain M70.61, M70.62 Trochanteric bursitis of both hips Date of Onset: 04/10/2018 Referring Provider: Sophia Bush PA-C Rehab Precautions Office Visit from 04/17/[address] [facility] PT OP Rehab Precautions Precautions None Rehab Learning Style Office Visit from 04/17/[address] [facility] OP Office Visit fro m 10/19/[address] [facility] PT OP Learning Style [...] DAIANA | | | | | | [place] [address] | | | | | | [phone] | | | | | | | | | | | | Correctional SupervisorNaomi | | +--------+ + + + [...]
--- OUTSIDE RECORDS SUMMARY | ~2019-05-17 | XMS | Encounter Summary ---
Demographics + + + | Address | [address] [facility] [address] [facility] | | | [place] [address] | + + + | Home Phone | | + + + | Preferred Language | Unknown | + + + | Marital Status | | + + + | Mormonism Affiliation | Unknown | + + + | Race | White | + + + | Ethnic Group | Not or | + + + Author + + + | Author | [facility] | + + + | Organization | [facility] | + + + | Address | Unknown | + + + | Phone | Unavailable | + + + Support + + +---------+ + | Name | Relationship | Address | Phone | + + +---------+ + | Alon Santiago | ECON | Unknown | | + + +---------+ + Care Team Providers + +------+ + | Care Doctor Of Pharmacy Name | Role | Phone | + +------+ + | Thee Boss MD | PCP | | + +------+ + Encounter Details +--------+ + + + + | Date | Type | Department | Care Team | Description | +--------+ + + + + | 06/02/ | MyChart | Rheumatology at | [facility] | RE: Ashly Santiago | | 2012 | Encounter | Physicians Francy Donato, DECKER OPERATOR [address] | | | | | [address] | [address] | | | | | Amara Chatman Mailcode: | [place], [place] | | | | | [address] Physician's | [address] | | | | | Francy, [facility] | [phone] | | | | | [place], [place] | | | | | | [address] | | | | | | [phone] | | | +--------+ + + + [...]
--- OUTSIDE RECORDS SUMMARY | ~2019-05-17 | XMS | Encounter Summary ---
Demographics + + + | Address | [address] [facility] | | | [place] [address] | + + + | Home Phone | | + + + | Preferred Language | Unknown | + + + | Marital Status | | + + + | Sabianist Affiliation | Unknown | + + + [...] Team Providers + +------+ + | Care Circle Edger Name | Role | Phone | + [...] Barry | | | | | 4.0) ([facility]) | [place] [address] | [address] | | | | | Myalgia and | [address]ian Mcma[address]one | [address] [place], | | | | | myositis, | [place], | [place] | | | | | unspecified | [place] [address] | [address] | | | | | Procedures | Phone: | Phone: | | | | | [place] | [phone] | [phone] | | | | | OFFICE/OUTPT | Fax: | Fax: | | | | | | [phone] | [phone] | | | | | VISIT,ESTLE | [...] | Visit | Physicians Francy | Kinga, SEATING CAPTAIN [address] | (Primary Dx); | | | | [address] | [address] | Rheumatoid arthritis | | | | Amara Chatman Mailcode: | [place], [place] | | | | | [address] Physician's | [address] | | | | | Francy, 4[address] Floor | [phone] | | | | | [place], [place] | | | | | | [address] | | | | | | [phone] | | | +--------+---------+ + + + [...] encounter Patient Instructions Patient Instructions Tavia Zuniga, SEATING CAPTAIN - 09/07/2014 3:30 PM PDT [email or web address] adapted for fibromyalgia Hip Bursitis: [...] As the pain gets better, keep doing gbzyd-dq-xwpeyn exercises. Ask your doctor for exerci ses [...] Bursitis: After Your Visit", log into your CleanFish account at [email or web address]. You can enter I156 in the [employer] Library" search box. Not on [employer]Fish? Review the [employer]Fish section of your After Visit Summary for directions on oracio morton to sign up. [phone] [facility]. Care instructions adapted under license by [facility] [place]. This care instruction is for use with your licensed healthcar e professional. If you have questions about a medical condition or this instruction, always ask your healthcare professional. [facility] disclaims any warranty or liabili ty for your use of this information. Content Version: 10.2.171839; Current as of: November 26, 2013 Hip [...] about "Hip Bursitis: Exercises", log into your [employer] account at [email or web address]. You can enter H674 in the Health Library" search box. Not on MyChart? Review the MyChart section of your After Visit Summary for directions on ho w to sign up. [phone] [facility]. Care instructions adapted under license by [facility]. This care instruction is for use with your licensed healthcar e professional. If you have questions about a medical condition or this instruction, always ask your healthcare professional. [facility] disclaims any warranty or liabili ty for your use of this information. Content Version: 10.2.402752; Current as of: November 26, 2013 documented [...] fibromyalgia, RA and chronic fatigue. Functional Assessment: [facility] 12/23/2013 06/01/2014 09/07/2014 RAPID 3 3.33 [...] ided. 3. She will continue care w/ jtac Dr. Rosas Lucia regarding her arthritis and her primary care provider for her fibromyalgia. 4. Though I didn't schedule her for follow-up at this time, I would be happy to see her at any point in the future if needed. I did encourage her to call should she have any question s or concerns in the near future. [facility] [address] [place] [address] Mailcode: Op09 [facility] 4th [facility] [address] Display Progress Note in DICOM Gridhart: No documented in t his encounter Plan of Treatment Not on filedocumented as of this encounter Visit Diagnoses + + | Diagnosis | + + | Fibromyalgia - Primary Mylagia and myositis, unspecified | + + | Rheumatoid arthritis | + + documented in this encounter
--- OUTSIDE RECORDS SUMMARY | ~2019-05-17 | XMS | Encounter Summary ---
Demographics + + + | Address | [address] [facility] | | | [place] [address] | + + + | Home Phone [...] | Author | [facility] | | | and Azana | + + + | Organization | [facility] | [...] [place], [place] | | | | | [address] | | + + + + + | Helena Doherty | ECON | [place], | | | | | [place] [address] | | + + + + + Care Team Providers + +------+ + | Care Clark Driver Name | Role | Phone | + +------+ + | Nathan Luevano DO | PCP | | + +------+ + Encounter Details +--------+ + + + + | Date | Type | Department | Care Team | Description | +--------+ + + + + | 10/29/ | Orders Only | [facility] | Mika Rowe MD | | | 2019 | | NEPHROLOGY [place] | [address] [place] | | | | | [address] [place] | [address] [place], [place] | | | | | [address] [place], [place] | [address] | | | | | [address] | | | | | | [phone] | | | +--------+ + + + [...] | | | | | | [place] [id number] | | | | | | [phone] | | | | | | | | | | | | Telephone Coin Box Collector, [facility] | | +--------+ + + + + documented as of this encounter Procedures + +--------+ + + + | Procedure Name | Priori | Date/Time | Associated Diagnosis | Comments | | | ty | | | | + +--------+ + + + | EXTERNAL LAB: CBC | Routin | 10/29/2018 | | Results for this | | | e | 9:28 AM | | procedure are in the | | | | PDT | | results section. | + +--------+ + + + | URINALYSIS WITH | Routin | 10/29/2018 | | Results for this | | MICROSCOPIC IF | e | 9:28 AM | | procedure are in the | | INDICATED | | PDT | | results section. | + +--------+ + + + | PROTEIN/CREATININE | Routin | 10/29/2018 | | Results for this | | RATIO, URINE | e | 9:28 AM | | procedure are in the | | | | PDT | | results section. | + +--------+ + + + | URIC ACID | Routin | 10/29/2018 | | Results for this | | | e | 9:28 AM | | procedure are in the | | | | PDT | | results section. | + +--------+ + + + | BASIC METABOLIC | Routin | 10/29/2018 | | Results for this | | PANEL | e | 9:28 AM | | procedure are in the | | | | PDT | | results section. | + +--------+ + + + documented in this encounter Results Protein/Creatinine Ratio, Urine (10/29/2018 9:28 AM PDT) + +-------+ + + + | Component | Value | Ref Range | Performed | Pathologist | | | | | At | Signature | + +-------+ + + + | Protein/Cre | 131.2 | 0 - 150 | EXTERNAL | | | at Ratio | | | LAB | | + +-------+ + + + + + | Specimen | + + | Urine specimen | | (specimen) | + + + +---------+ + + | Performing | Address | City/State/Zipcode | Phone Number | | Organization | | | | + +---------+ + + | EXTERNAL LAB | | | | + +---------+ + + Urinalysis with Microscopic if Indicated (10/29/2018 9:28 AM PDT) + + + + + + | Component | Value | Ref Range | Performed | Pathologist | | | | | At | Signature | + + + + + + | Color | Yellow | | EXTERNAL | | | | | | LAB | | + + + + + + | Clarity | Clear | | EXTERNAL | | | | | | LAB | | + + + + + + | Spec Grav, | 1.011 | 1.005 - 1.030 | EXTERNAL | | | Fluid | | | LAB | | + + + + + + | Leukocyte | Trace | | EXTERNAL | | | Esterase, | | | LAB | | | Urine | | | | | + + + + + + | Nitrite, | Negative | | EXTERNAL | | | Urine | | | LAB | | + + + + + + | Urobilinoge | Normal | | EXTERNAL | | | n, Urine | | | LAB | | + + + + + + | Total | Negative | | EXTERNAL | | | Protein | | | LAB | | + + + + + + | pH, Urine | 6 | 5 - 9 | EXTERNAL | | | | | | LAB | | + + + + + + | Blood, | Negative | | EXTERNAL | | | Urine | | | LAB | | + + + + + + | Ketones | Negative | | EXTERNAL | | | | | | LAB | | + + + + + + | Bilirubin, | Negative | | EXTERNAL | | | Urine | | | LAB | | + + + + + + | Glucose, | Negative | | EXTERNAL | | | Urine [...] + +---------+ + + External Lab: CBC (10/29/2018 9:28 AM PDT) + + + + + + | Component | Value | Ref Range | Performed | Pathologist | | | | | At | Signature | + + + + + + | WBC | 10.1 | 4.5 - 11.0 10 | EXTERNAL | | | | | | LAB | | + + + + + + | RED CELL | 3.90 | 3.8 - 5.1 10 | EXTERNAL | | | COUNT | | | LAB | | + + + + + + | Hgb | 12.8 | 12.0 - 16.0 | EXTERNAL | | | | | g/dL | LAB | | + + + + + + | Hematocrit, | 38.7 | 35 - 45 % | EXTERNAL | | | POC | | | LAB | | + + + + + + | MCV | 99.1 (A) | 81 - 99 fL | [...] + + + + | Platelet | 278 | 140 - 440 K/ L | EXTERNAL | | | Count | | | LAB | | | Plasma | | | | | + + + + + + | RDW-CV | 14.2 | 10.5 - 15.0 % | EXTERNAL [...] + + + | % Segmented | 78.2 | 39 - 80 % | EXTERNAL | | | | | | LAB | | | Neutrophils | | | | | + + + + + + | % | 12.7 (A) | 24 - 44 % | EXTERNAL | | | Lymphocytes | | | LAB | | + + + + + + | % Monocytes | 7.7 | 0 - 12 % | EXTERNAL | | | | | | LAB | | + + + + + + | % | 0.5 | 0 - 6 % | EXTERNAL [...] | | | + +---------+ + + Uric Acid (10/29/2018 9:28 AM PDT) + +-------+ + + + | Component | Value | Ref Range | Performed | Pathologist | | | | | At | Signature | + +-------+ + + + | Uric Acid | 4.8 | 2.3 - 6.6 | EXTERNAL | | | | | [...] | | | + +---------+ + + Basic Metabolic Panel (10/29/2018 9:28 AM PDT) + + + + + + | Component | Value | Ref Range | Performed | Pathologist | | | | | At | Signature | + + + + + + | Glucose, | 95 | 70 - 100 mg/dL | EXTERNAL | | | Fasting | | | LAB | | + + + + + + | BUN | 34 (A) | 6 - 23 mg/dL | EXTERNAL | | | | | | LAB | | + + + + + + | Creatinine | 1.21 (A) | 0.70 - 1.18 | EXTERNAL | | | | | mg/dL | LAB | | + + + + + + | BUN/Creatin | 28.1 | 6.0 - 28.6 | EXTERNAL | | | ine Ratio | | | LAB | | + + + + + + | Calcium | 9.7 | 8.5 - 10.3 | EXTERNAL | | | | | mg/dL | LAB | | + + + + + + | Na | 139 | 132 - 143 | EXTERNAL | | | | | mmol/L | LAB | | + + + + + + | K | 4.1 | 3.6 - 5.1 | EXTERNAL | | | | | mmol/L | LAB | | + + + + + + | Cl | 101 | 95 - 112 mmol/L | EXTERNAL | | | | | | LAB | | + + + + + + | CO2 | 25 | 19 - 31 mmol/L | EXTERNAL | | | | | | LAB | | + + + + + + | Anion Gap | 17.1 | 7 - 21 mmol/L | EXTERNAL | | | | | | LAB | | + + + + + + | Estimated | 43 (A) | 60 - 140 mg/dL | [...]
--- OUTSIDE RECORDS SUMMARY | ~2019-05-17 | XMS | Encounter Summary ---
Demographics + + + | Address | [address] [facility] | | | [place] [address] | + + + | Home Phone [...] Author + + + | Author | [facility] | + + + | Organization | [facility] | + + + | Address | Unknown | + + + | Phone | Unavailable | + + + Support + + +---------+ + | Name | Relationship | Address | Phone | + + +---------+ + | Alon Santiago | ECON | Unknown | | + + +---------+ + Care Team Providers + +------+ + | Care Filter Bed Placer Name | Role | Phone | + +------+ + | Thee Boss MD | PCP | | + +------+ + Encounter Details +--------+ + + + + | Date | Type | Department | Care Team | Description | +--------+ + + + + | 04/29/ | MyChart | Rheumatology at | [facility] | RE: Ashly Santiago | | 2012 | Encounter | Physicians Francy Donato, HEALTH SERVICES ADMINISTRATOR [address] | | | | | [address] | | | | | Amara Chatman Mailcode: | [place], [place] | | | | | [address] Physician's | [address] | | | | | Francy, [facility] Floor | [phone] | | | | | [place], [place] | | | | | | [address] | | | | | | [phone] | | | +--------+ + + + [...]
--- OUTSIDE RECORDS SUMMARY | ~2019-05-17 | XMS | Encounter Summary ---
Demographics + + + | Address | [address] [facility] | | | [place] [address] | + + + | Home Phone | | + + + | Preferred Language | Unknown | + + + | Marital Status | | + + + | Bahai Affiliation | Unknown | + + + [...] Team Providers + +------+ + | Care Health Care Administrator Name | Role | Phone | + +------+ + | Thee Boss MD | PCP | | + +------+ + Encounter Details +--------+ + + + + | Date | Type | Department | Care Team | Description | +--------+ + + + + | 05/06/ | Hospital | Diagnostic | | | | 2012 | Encounter | Radiology at [facility] | | | | | | [address] | | | | | | Amara Chatman Mailcode: | | | | | | [address] Physician's | | | | | | [place], | | | | | | [place] [address] | | | | | | [phone] | | | +--------+ + + + [...] | | + +---------+ + + | [facility] DEPARTMENT OF | | | | | RADIOLOGY | | | | + +---------+ + + documented in this encounter Visit Diagnoses + + | Diagnosis | + + | Joint pain Pain in joint, site unspecified | + + documented in this encounter"
--- OUTSIDE RECORDS SUMMARY | ~2019-05-17 | XMS | Encounter Summary ---
Demographics + + + | Address | [address] [facility] | | | [place] [address] | + + + | Home Phone [...] Team Providers + +------+ + | Care Babysitter Name | Role | Phone | + +------+ + | Thee Boss MD | PCP | | + +------+ + Encounter Details +--------+ + + + + | Date | Type | Department | Care Team | Description | +--------+ + + + + | 05/06/ | Hospital | Diagnostic | | | | 2012 | Encounter | Radiology at [facility] | | | | | | [address] | | | | | | [address] Chatman Mailcode: | | | | | | [address] Physician's | | | | | | [place], | | | | | | [place] [address] | | | | | | [phone] | | | +--------+ + + + [...]
--- OUTSIDE RECORDS SUMMARY | ~2019-05-17 | XMS | Encounter Summary ---
Demographics + + + | Address | [address] [facility] | | | [place] [address] | + + + | Home Phone | | + + + | Preferred Language | Unknown | + + + | Marital Status | | + + + | Samaritan Affiliation | Unknown | + + + [...] Team Providers + +------+ + | Care Helicopter Pilot Name | Role | Phone | + +------+ + | Thee Boss MD | PCP | | + +------+ + Encounter Details +--------+ + + + + | Date | Type | Department | Care Team | Description | +--------+ + + + + | 09/26/ | Document-Sc | UNKNOWN DEPARTMENT | Unknown . | | | 2013 | anned | [address] | | | | | | [address] | | | | | | [place], [place] | | | | | | [address] | | | +--------+ + + + [...]
--- OUTSIDE RECORDS SUMMARY | ~2019-05-17 | XMS | Encounter Summary ---
Demographics + + + | Address | [address] | | | [place] [address] | + + + | Home Phone [...] Team Providers + +------+ + | Care Software Systems Analyst Name | Role | Phone | + +------+ + | Thee Boss MD | PCP | | + +------+ + Reason for Visit + + + | Reason | Comments | + + + | Fibromyalgia | | + + + | Rheumatoid arthritis | | + + + Physical Therapy (Routine) +--------+--------+ + + + + | Status | Reason | Specialty | Diagnoses / | Referred By | Referred To | | | | | Procedures | Contact | Contact | +--------+--------+ + + + + | Closed | | Physical | Diagnoses | Wanchu, | Callie Pt [facility] | | | | Therapy | Rheumatoid | MD Rosas | [address] | | | | | arthritis(71 | [address] | | | | | 4.0) ([facility]) | [address] | Mailcode: | | | | | Procedures | 2010 | [facility] | | | | | PHYSICAL | [place], [place] | for Health | | | | | THERAPY | [address] | and Healing, | | | | | REFERRAL | Phone: | Building [address], | | | | | | [phone] | [address] | | | | | | Fax: | [place], [place] | | | | | | [phone] | [address] | | | | | | | Phone: | | | | | | | [phone] | | | | | | | Fax: | | | | | | | [phone] | +--------+--------+ + + + + Encounter Details +--------+---------+ + + + | Date | Type | Department | Care Team | Description | +--------+---------+ + + + | 09/07/ | Office | [place] Physical | Luz Elena Duenas, | Fibromyalgia | | 2015 | Visit | Therapy Services at | MS,PT [address] | (Primary Dx); | | | | [facility] | [address] | Rheumatoid arthritis | | | | [address] | [place] [address] | | | | | Mailcode: [facility] | [phone] | | | | | [facility] | | | | | | and Healing, | | | | | | Building 1, | | | | | | Floor [place], [place] | | | | | | [address] | | | | | | [phone] | | | +--------+---------+ + + + [...] + + documented as of this encounter Patient Instructions Patient Instructions Luz Elena Duenas MS,PT - 09/07/2014 1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 We are committed to providing you with first-class rehabilitation. In turn, we ask that you do your best to attend each session, and arrive on time. Attendance Policy: At times we understand you must cancel. We request that all cancellations be made at least 24 hours in advance by calling . There is a message line 24 hours a day. An y appointment that is cancelled with less than 24 hours notice will be considered a no show or missed appointment. If 2 or more appointments are missed, therapy will be suspended until you get a new referral from your doctor. Customer Satisfaction Survey: Our department's goal is to provide the Best Patient Care Experience Ever. You may receive a survey. Please help us achieve our goal by giving us your feedback. Hopefully we scored a very good in your opinion. LUZ ELENA DUENAS MS, PT Physical Therapist [facility] REHABILITATION SERVICES AND HAND THERAPY [address] [facility], [address] [place] [address] documented in this encounter Progress Notes Luz Elena Duenas MS,PT - 09/07/2014 1:15 PM PDTFormatting of this note might be different f rom the original. Start of care: 09/07/2014 Date of onset: 08/30/2014 Referring/Attending Practitioner to Fibromyalgia Clinic: Rosas Lucia MD . Rheumatology Referring/Attending Provider. Tavia Zuniga MP Primary/Referral Diagnosis/ICD-9: Fibromyalgia/Myofascial Pain/729.1 Insurance: Payor: [facility] MED[facility] / Plan: AET MEDICARE PPO / Product Type: Medicare / Date of : 1940 Service period from: 09/07/2014 to: 10/07/14 Number visits used/authorized: 1 [facility] PHYSICAL THERAPY INITIAL EVALUATION Ashly Santiago MR# [id number] SUBJECTIVE: History of Presenting Problem: Ashly Santiago is a 74 y.o. female who was diagnosed with fi bromyalgia and rheumatoid arthritis. Problems for many years, since a teen. Diagnosed with R A just over a year ago. Planning a cruise soon and concerned about [facility] nsVick Limon presents with the following complaints/functional limitations: fatigue, sleep distu rbance, increased pain, cognitive problem, headaches, stiffness, no exercise program, exerci se intolerance, hypersensitivity to light, hypersensitivity to noise and hypersensitivity t o smells/chemicals. Precautions: hypertension. History of Fainting: no. History of lightheadedness and/or dizziness: yes, associated with sensation of overall weakness and associated with sensation of warmth and/or sweating . History of Radiation Exposure: no. History: Negative history of heart arrhythmia. Negative history of ischemic or structural h eart disease. Negative history of diabetes. Ashly is currently on medications for blood pressure or heart conditions. Medications: Current outpatient prescriptions:Ascorbic Acid (VITAMIN C) 500 mg OR CHEW, 100 0 mg, 2 chewable per day, Disp: , Rfl: buprenorphine (BUTRANS) 5 mcg/hour transdermal patch weekly, Apply 5 mcg to skin every allison n days., Disp: 4 patch, Rfl: 2 busPIRone 5 mg oral tablet, Take 5 mg by mouth three times daily., Disp: , Rfl: CALCIUM CARBONATE/VITAMIN D2 (CALCIUM + VITAMIN D ORAL), Take 1 tablet by mouth two times d aily. Calcium 600 mg, D3 400 IU, Disp: , Rfl: cholecalciferol, Vitamin D3, 1,000 unit oral tablet, Take 1,000 Units by mouth two times da aishwarya., Disp: , Rfl: CHONDROITIN SULFATE A ORAL, Take 1,250 mg by mouth two times daily., Disp: , Rfl: docusate sodium (COLACE) 100 mg oral capsule, Take 1 capsule by mouth two times daily., Dis p: 60 capsule, Rfl: 3 esterified estrogens 0.15 mg oral tablet, Take 1 each by mouth once daily., Disp: , Rfl: folic acid 1 mg oral tablet, Take 1 tablet by mouth once daily., Disp: 90 tablet, Rfl: 1 GLUC GARZA/CHONDRO GARZA A/VIT C/MN (GLUCOSAMINE 1500 COMPLEX ORAL), Take 2 tablets by mouth two times daily., Disp: , Rfl: hydrochlorothiazide 25 mg oral tablet, Take 25 mg by mouth once daily. 1/2 tab, Disp: , Rfl : hydroxychloroquine (PLAQUENIL) 200 mg oral tablet, Take 1 tablet by mouth two times daily., Disp: 180 tablet, Rfl: 1 losartan 25 mg oral tablet, Take 25 mg by mouth once daily., Disp: , Rfl: Lysine 500 mg OR CAPS, 1 tablet daily, Disp: , Rfl: methotrexate 2.5 mg oral tablet, Take 4 tablets by mouth every seven days., Disp: , Rfl: mirabegron (MYRBETRIQ) 50 mg oral tablet extended release 24 hr, Take 1 tablet by mouth onc e daily., Disp: , Rfl: naproxen sodium (ALEVE) 220 mg oral capsule, Take 220 mg by mouth three times daily as need ed., Disp: , Rfl: nystatin 100,000 unit/gram topical cream, Apply liberally to the affected areas BID, Disp: 30 g, Rfl: 0 ranitidine (ZANTAC) 150 mg Oral tablet, Take 150 mg by mouth as needed., Disp: , Rfl: TURMERIC, BULK, MISC, 40 drops two times daily., Disp: , Rfl: TYLENOL PM OR, 1 @ HS, Disp: , Rfl: VIT A/VIT C/VIT E/ZINC/COPPER (ICAPS AREDS ORAL), Take by mouth., Disp: , Rfl: Prior/concurrent services related to the present problem: physical therapy, massage, acupun cture. Ashly Goals: safe exercise program, learn to manage pain and decrease symptoms. Present status: Most significant pain sites: neck and shoulders, lower back, hips and hands. 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 Living situation: Ashly currently lives with a spouse and with 1 pet(s). House Type: multiple level house and stairs. Activity Level/Exercise: walking. Ashly currently has access to the following equipment: pool and [employer] machine. Patient reports a pain level of 7 today. The best the pain ever gets on a scale of 0-10 is: 7 The worst the pain ever gets on a scale of 0-10 is: 8-9 Pain worsens with: overactivity. Pain improves with: medication changes. Living situation/environment is limiting function: stairs, planning to remodel. Requests family members or friends involved with rehabilitation therapy: no Anxieties or concerns about therapy: no OBJECTIVE: Cranial nerves III-XII grossly intact. grossly intact WFL Posture: Sitting Posture: head forward, slouched sitting, round forward shoulders and flat low back. ROM (limitations only): tight heel cords MMT (limitations only): limited to 50% squat to floor Bilateral stance eyes closed, feet together (seconds) . Right unilateral stance durati on (seconds): 07/09 Left unilateral stance duration (seconds): 07/09. Balance/coordination 360 degree NT. Gait for 25 feet (Normal 5 sec for men, 6 seconds for women):Self-selected speed in seconds : 9.9 Fast speed in seconds: 6.5 Gait Deviations: slow Ashly is unable to heel walk. She is able to toe walk. Outcome Measure Assessment Tool Scoring Score 12/13/2011 Interpretation Activities-specific Balance Confidence scale (ABC) 10 item questionaire: Each item rated 0 (no confidence) to 100 (100% confidence) 59/100% > 80% High level of functioning 50-80% Moderate level of functioning < 50% indicates Low level of functioning Score < 66% in older adult and < 40% in people with multiple sclerosis has been related to high risk for falls OUTCOME MEASURE Assessment Tool Interpretation Score 09/07/2014 Lower Extremity Functional Scale (LEFS) Lower score= Greater disability MCID*= 9 points *Minimal Clinically Important Difference TREATMENT TODAY: PT Evaluation 35 minutes 1:00 - 1:35 therapeutic exercise 1:35-1:50 ASSESSMENT: Treatment diagnosis/ICD-9 code = Fibromyalgia/729.1 Ashly requires services that can be safely and effectively performed only by a qualified therapist to address the following problems and achieve the following goals: Problems include: Pain, morning stiffness, minimal activity and/or decreased ROM or inadeq uate/no program for exercise. Reported falling, pain with walking and/or gait deviations no jesus. Pain and/or poor posture/positioning and inadequate seating at home, work, and/or car. Pain and needs instruction in compensation/pain management. Functional discharge goals, as discussed with the Ashyl, due in 12 weeks: 1) Demonstrate independent home exercise program. 2) Demonstrate safe, independent walking. 3) Know proper seating for work, home and/or car. 4) Demonstrate knowledge of pain compensation/management techniques to decrease pain and in crease function. 5) Obtain and use identified equipment /tools for pain management at home/work. PLAN OF CARE: Treatment plan: One on one treatment to instruct in home exercise program with appropriate self-monitoring , pain management/compensation techniques, posture/positioning during activ ities, proper gait with correct equipment and identification of equipment needed as indicate d in initial evaluation. Ashly was given information/instructions on: tilt table test to rule out neurally mediated hypotension to discuss with fibromyalgia medical provider. recommended PT and OT appointments. Recommend therapy near patient's home. Consider Rod Chi Moving for Better Balance. Look at [place] lifters for sensitive feet in bed Given series of morning warm up exercises and sit to stand strengthening exercise. Frequency/Duration: TBD by local therapist. Will return here as able to combine with other visits or medical appointments to [place]. Treatment began: 1 Treatment ended: 1:50 This note is to serve as the discharge summary if Ashly fails to attend further Physical T herapy appointments or contact the therapist regarding any change in their status. LUZ ELENA DUENAS MS, PT Physical Therapist [facility]ERAPY [address] [facility], 1st [place] [address] documented in this encounter Plan of Treatment + + +--------+ + + | Name | Type | Priori | Associated Diagnoses | Order Schedule | | | | ty | | | + + +--------+ + + | REHABILITATION | Procedures | Routin | Fibromyalgia | Ordered: 09/07/2014 | | MEDICARE | | e | Rheumatoid arthritis | | | CERTIFICATION | | | | | + + +--------+ + + documented as of this encounter Procedures + +--------+ + + + | Procedure Name | Priori | Date/Time | Associated Diagnosis | Comments | | | ty | | | | + +--------+ + + + | [facility] THERAPEUTIC | Routin | 09/07/2014 | Fibromyalgia | | | EXERCISES | e | 3:49 PM | Rheumatoid arthritis | | | | | PDT | | | + +--------+ + + + | [facility] PHYS THERAPY | Routin | 09/07/2014 | Fibromyalgia | | | EVALUATION | e | 3:49 PM | Rheumatoid arthritis | | | | | PDT | | | + +--------+ + + + documented in this encounter Visit Diagnoses + + | Diagnosis | + + | Fibromyalgia - Primary Mylagia and myositis, unspecified | + + | Rheumatoid arthritis | + + documented in this encounter"
--- OUTSIDE RECORDS SUMMARY | ~2019-05-17 | XMS | Encounter Summary ---
Demographics + + + | Address | [address] | | | [place] [address] | + + + | Home Phone [...] + | Author | [facility] | | | and Azana | + + + | Organization | [facility] | [...] [place], [place] | | | | | [address] | | + + + + + | Helena Doherty | ECON | [place], | | | | | [place] [address] | | + + + + + Care Team Providers + +------+ + | Care Amf Mechanic Name | Role | Phone | [...] n | - | PA-C [address] [place] | | | | | Trochanteric | [place] Quintana | [place], [place] | | | | | bursitis, | Ave | [address] Phone: | | | | | left hip | [place], | [phone] | | | | | M70.61 | [place] | Fax: | | | | | (ICD-10-CM) | [address] | [phone] | | | | | - | Phone: | | | | | | Trochanteric | [phone] | | | | | | bursitis, | Fax: | | | | | | right hip | [phone] | | | | | | M79.7 [...] Description | +--------+---------+ + + + | 10/08/ | Office | [facility] | Aiyana Fish, | Neck pain (Primary | | 2019 | Visit | [facility] | PT [address] | Dx); Trochanteric | | | | [address] | [place] | bursitis of both | | | | [place] | [address] | hips; Fibromyalgia | | | | [address] | | | | | | [phone] | | | +--------+---------+ + + + [...] encounter Progress Notes Aiyana Fish, PT - 10/08/2018 12:45 PM PDTFormatting of this note might be different fro m the original. [facility] [address] [place] [address] Physical Therapy Progress Assessment Date: 10/08/2018 Patient Information Patient Name: Ashly Santiago Date of : 1940 Age: 78 y.o. Encounter Diagnoses Code Name Primary? M54.2 Neck pain Yes M70.61, M70.62 Trochanteric bursitis of both hips M79.7 Fibromyalgia Date of Onset: 04/10/2018 Referring Provider: Sophia Bush PA-C Rehab Precautions Office Visit from 04/17/2018 in [facility] PT OP Rehab Precautions Precautions None Rehab Learning Style Office Visit from 04/17/2018 in [facility] PT OP Office Visit fro m 10/19/2016 in [facility] PT OP Learning Style Patient's [employer] Learning Style listening, reading, observation, performance of task lis tening, reading, observation, performance of task Pain Assessment: Pain Rating Pre Assessment: 5 Pain Rating Post Assessment: 4 Location: low back SUBJECTIVE: Ashly Santiago has completed 20 visits for treatment of chronic pain from [facility]ison re [facility]. Patient reports improvements with less pain and improved function over t he past 3 months, but she is currently in a flare up. However continues to report limited AD Ls with an NDI score of 42% OBJECTIVE: Brachialis 2+ bilat on Prog eval Cervical ROM Initial Assessment Progress Note / Discharge Progress Note 10/08/2018 Flexion: 52 55 58 Extension: 40 52 50 Side Bend Left: 30 30 30 Side Bend Right: 30 30 30 Rotation Left: 60 65 63 Rotation Right: 55 70 65 Hip ROM Flexion: R=105 S=097CN L=30 R=25 ER L= 45 R= 45 Hamstring length normal 80 + Bilat At time of PN- same DTRs of the UE normal 2+ And normal LE 2+ for AJ and KJ Standardized Tests: Neck Disability Index (NDI) Pain Intensity: 3 - The pain is fairly severe at the moment Personal Care (Washing, Dressing, etc.): 2 - It is painful to look after myself and I am sl ow and careful Liftin - Pain prevents me from lifting heavy weights but I can manage light to medium w eights if they are conveniently positioned Readin - I can't read as much as I want because of moderate pain in my neck Headaches: 0 - I have no headaches at all Concentration: 3 - I have a lot of difficulty in concentrating when I want to Work: 1 - I can only do my usual work, but no more Drivin - I can drive my car as long as I want with slight pain in my neck Sleepin - My sleep is moderately disturbed (2-3 hrs sleepless) Recreation: 2 - I am able to engage in most, but not all of my usual recreation activities because of pain in my neck Neck Disability Index Score: 21 Neck Disability Index Percentage Score: 42 Neck Disability Index Percentage Score (Calculated): 42 Neck Disability Index Goal: 20 Neck Disability Index Goal Status: 42 Assessment Ashly Santiago has been participating in therapy for treatment of chronic pain in multiple areas but especially her back, hips and neck. Knee pain has resolved. Patient demonstrates objective improvements with left knee pain, bilat hip pain is less and ROM in her neck margarito ins good. Ashly Santiago continues to have impairments with high pain levels in multiple ar eas which are in flare up at this time due to high stress and changes in medications- her do ctor has taken her off a lot of her meds including some pain meds. She also continues to quach ve severe tightness and myofascial restrictions in her back and hips which are affecting her ability to complete functional tasks such as all ADLs as reflected by her NDI score of 42% which has increased since her last PN. Patient requires continued skilled therapy services t o achieve the following updated functional goals. Rehabilitation potential: Patient demonstrates [...] Status Comment: pt is able to stand up to 30 min Patient Specific Functional Scale Goal 2: Pt will sleep without disruption for up to 5 hour s Patient Specific Functional Scale Goal 2 Status Comment: pt is experiencing 2-3 hours of sl eep interruption due to pain Neck Disability Index Goal: 20 Neck Disability Index Goal Status: 42 Plan Date of Onset: 04/10/2018 Start of Care Date: 04/17/2018 Requested # of Visits: 12 visits 1x/week for 12 weeks Certification From: 10/08/2018 Certification To: 01/07/2019 Treatment Plan/Interventions 88539 - Therapeutic [id number] - Therapeutic [id number] - Manual [id number] - Liza f Care/Home Management Patient and/or family has indicated understanding of treatment needs and actively participa jesus in the creation of this plan for care. Today's Treatment Start Time: 1249 Stop time: 1337 Duration: 48 minutes Timed Treatment Codes: 28 minutes # of PT Visits: 20 Objective: Myofascial release and positional release therapy to multiple areas with focus on her mid t horacic spine and hips. Next Visit: Continue with manual therapy and development of home program. Planning for DC as pt comes out of this flare up and prepares for her trip to [place] November 09 Electronically signed by: Aiyana Fish PT, 10/08/2018 14:41 Patient Name: Ashly Santiago/: 1940/ si gned by Aiyana Fish PT at 10/08/2018 2:48 PM PDTdocumented in this encounter Plan of [...] | | | | | [place] [address] | | | | | | [phone] | | | | | | | | | | | | Sports Book Board AttendantNaomi | | +--------+ + + + + documented as of this encounter Visit Diagnoses + + | Diagnosis | + + | Neck pain - Primary Cervicalgia | + + | Trochanteric bursitis of both hips Enthesopathy of hip region | + + | Fibromyalgia Mylagia and myositis, unspecified | + + documented in this encounter"
--- OUTSIDE RECORDS SUMMARY | ~2019-05-17 | XMS | Encounter Summary ---
Demographics + + + | Address | [address] [facility] | | | [place] [address] | + + + | Home Phone | | + + + | Preferred Language | Unknown | + + + | Marital Status | | + + + | Scientologist Affiliation | Unknown | + + + | Race | White | + + + | Ethnic Group | Not or | + + + Author + + + | Author | [facility] | + + + | Organization | [facility] | + + + | Address | Unknown | + + + | Phone | Unavailable | + + + Support + + +---------+ + | Name | Relationship | Address | Phone | + + +---------+ + | Alon Santiago | ECON | Unknown | | + + +---------+ + Care Team Providers + +------+ + | Care Machine Tool Rebuilder Name | Role | Phone | + +------+ + | Thee Boss MD | PCP | | + +------+ + Encounter Details +--------+------+ + + + | Date | Type | Department | Care Team | Description | +--------+------+ + + + | 09/02/ | Lab | Laboratory, | | Fibromyalgia | | 2013 | | Specimen Collection | | | | | | at [address] | | | | | | [address] | | | | | | Celina Chatman [place], | | | | | | [place] [address] | | | | | | [phone] | | | +--------+------+ + + + [...] CBC AND AUTO DIFF | Routin | 09/02/2013 | Fibromyalgia | Results for this | | | e | 12:33 PM | | procedure are in the | | | | PDT | | results section. | + +--------+ + + + | CBC, WITH | Routin | 09/02/2013 | Fibromyalgia | Results for this | | DIFFERENTIAL | e | 12:33 PM | | procedure are in the | | | | PDT | | results section. | + +--------+ + + + | COMPLETE METABOLIC | Routin | 09/02/2013 | Fibromyalgia | Results for this | | SET | e | 12:33 PM | | procedure are in the | | (NA,K,CL,CO2,BUN,CRE | | PDT | | results section. | | AT,GLUC,CA,AST,ALT,B | | | | | | MEDINA TOTAL,ALK | | | | | | PHOS,ALB,PROT TOTAL) | | | | | + +--------+ + + + | SEDIMENTATION RATE | Routin | 09/02/2013 | Fibromyalgia | Results for this | | | e | 12:33 PM | | procedure are in the | | | | PDT | | results section. | + +--------+ + + + documented in this encounter Results CBC AND AUTO DIFF (09/02/2013 12:33 PM PDT) + + + + + + | Component | Value | Ref Range | Performed | Pathologist | | | | | At | Signature | + + + + + + | WHITE CELL | 6.51 | 4.40 - 11.00 | [facility] | | | COUNT | | K/cu mm | LABORATORY | | | | | | SERVICES, | | | | | | CORE | | + + + + + + | RED CELL | 3.71 (L) | 4.00 - 5.20 | [facility] | | | COUNT | | M/cu mm | LABORATORY | | | | | | SERVICES, | | | | | | CORE | | + + + + + + | HEMOGLOBIN | 11.5 (L) | 12.0 - 16.0 | [facility] [...] + + + + | MCV | 96.0 | 80.0 - 96.0 fL | [facility] | | | | | | LABORATORY | | | | | | SERVICES, | | | | | | CORE | | + + + + + + | MCHC | 32.3 | 33.0 - 35.5 | [facility] | | | | | g/dL | LABORATORY | | | | | | SERVICES, | | | | | | CORE | | + + + + + + | RDW SD | 45.6 | 35.1 - 46.3 fL | [facility] | | | | | | LABORATORY | | | | | | SERVICES, | | | | | | CORE | | + + + + + + | PLATELET | 267 | 150 - 400 K/cu | [facility] | | | COUNT | | mm | LABORATORY | | | | | | SERVICES, | | | | | | CORE | | + + + + + + | MPV | 10.7 | 9.7 - 12.3 fL | [facility] [...] + + + + | NEUTROPHIL | 54.3 | 50.0 - 70.0 % | [facility] | | | % | | | LABORATORY | | | | | | SERVICES, | | | | | | CORE | | + + + + + + | LYMPHOCYTE | 28.9 | 18.0 - 42.0 % | [facility] | | | % | | | LABORATORY | | | | | | SERVICES, | | | | | | CORE | | + + + + + + | MONOCYTE % | 11.8 (H) | 3.5 - 9.0 % | [facility] | | | | | | LABORATORY | | | | | | SERVICES, | | | | | | CORE | | + + + + + + | EOS % | 3.8 (H) | 1.0 - 3.0 % | [facility] | | | | | | LABORATORY | | | | | | SERVICES, | | | | | | CORE | | + + + + + + | BASO % | 0.9 | 0.0 - 2.0 % | [facility] [...] + + + + | NEUTROPHIL | 3.53 | 1.80 - 7.70 | [facility] | | | # | | K/cu mm | LABORATORY | | | | | | SERVICES, | | | | | | CORE | | + + + + + + | LYMPHOCYTE | 1.88 | 1.00 - 4.80 | [facility] | | | # | | K/cu mm | LABORATORY | | | | | | SERVICES, | | | | | | CORE | | + + + + + + | MONOCYTE # | 0.77 | 0.10 - 0.90 | [facility] | | | | | K/cu mm | LABORATORY | | | | | | SERVICES, | | | | | | CORE | | + + + + + + | EOS # | 0.25 | 0.00 - 0.50 | [facility] | [...] are not included in the IG count. | LABORATORY | | | SERVICES, CORE | + + + + + + + + | Performing | Address | City/State/Zipcode | Phone Number | | Organization | | | | + + + + + | [facility] | [address] | [place] [address] | | | SERVICES, CORE | [address] | | | + + + + + SEDIMENTATION RATE (09/02/2013 12:33 PM PDT) + [...] | + + + + + | [facility] | [address] | [place] [address] | | | SERVICES, CORE | [address] [...] | + + + + + | [facility] | [address] | [place] [address] | | | SERVICES, CORE | [address] | | | + + + + + documented in this encounter Visit Diagnoses + + | Diagnosis | + + | Fibromyalgia Mylagia and myositis, unspecified | + + documented in this encounter"
--- OUTSIDE RECORDS SUMMARY | ~2019-05-17 | XMS | Encounter Summary ---
Demographics + + + | Address | [address] [facility] | | | [place] [address] | + + + | Home Phone [...] Team Providers + +------+ + | Care Carrot Grader Inspector Name | Role | Phone | [...] | | | Amara Chatman Mailcode: | [place], [place] | | | | | [address] Physician's | [address] | | | | | [address], [address] Floor | [phone] | | | | | [place], [place] | | | | | | [address] | | | | | | [phone] | | | +--------+ + + + [...]
--- OUTSIDE RECORDS SUMMARY | ~2019-05-17 | XMS | Encounter Summary ---
Demographics + + + | Address | [address] [facility] | | | [place] [address] | + + + | Home Phone [...] Author | [facility] | | | and Azana | + + + | Organization | [facility] | | [...] [place], [place] | | | | | [address] | | + + + + + | Helena Doherty | ECON | [place], | | | | | [place] [address] | | + + + + + Care Team Providers + +------+ + | Care Health Insurance Specialist Name | Role | Phone | + +------+ + | Nathan Luevano DO | PCP | | + +------+ + Reason for Visit + + + | Reason | Comments | + + + | Left Without Being | Patient did not need this visit. | | Seen | | + + + Service/Procedure (Routine) +--------+--------+ + + + + | Status | Reason | Specialty | Diagnoses / | Referred By | Referred To | | | | | Procedures | Contact | Contact | +--------+--------+ + + + + | Closed | | Physical | Diagnoses | Ruben, | Ruben, | | | | Medicine and | Cervicalgia | FABIAN Morales | FABIAN Morales | | | | Rehabilitatio | Procedures | [address] | | | | n | [place] INJECT | [address] | [address] | | | | | TRIGGER | [address] | [place], | | | | | POINT, 3+ | [place], | [place] [address] | | | | | [place] | [place] [address] | Phone: | | | | | OFFICE | Phone: | [phone] | | | | | OUTPATIENT | [phone] | Fax: | | | | | VISIT 15 | Fax: | [phone] | | | | | [place] | [phone] | | | | | | LIDOCAINE | | | | | | | INJECTION, | | | | | | | 10 MG | | | | | | | Appt. 01/21 | | | | | | | Trigger | | | | | | | Point | | | | | | | Injections | | | +--------+--------+ + + + + Encounter Details +--------+ + + + + | Date | Type | Department | Care Team | Description | +--------+ + + + + | 01/21/ | Procedure | [facility] [place] | Andrew Miranda, | NO DX AVAILABLE | | 2018 | visit | PHYSIATRY [address] | PA-C [address] | (Primary Dx) | | | | [place], | [address] [place] | | | | | [place] [address] | [place] [address] | | | | | [phone] | [phone] | | | | | | | [...] + + + | Blood Pressure | 136/66 | 01/21/2018 12:40 PM | | | | | PDT | | + + + + + | Pulse | 89 | 01/21/2018 12:40 PM | | | | | PDT [...] | 87.1 kg (192 lb 0.3 | 01/21/2018 12:40 PM | | | | oz) | PDT | | + + + + + | Height | 167.6 cm (5' 6") | 01/21/2018 12:40 PM | | | | | PDT | | + + + + + | Body Mass Index | 30.99 | 01/21/2018 12:40 PM | | | | | PDT | | + + + + + documented in this encounter Progress Notes Andrew Miranda PA-C - 01/21/2018 12:40 PM PDTPatient came in for trigger point injections t inder. However, at this time is not having any pain and would like to cancel her trigger poin ts. Patient was informed that she could return as needed for trigger point injections. Andrew Miranda PA-C, 01/21/18 documented in this en counter Plan of [...] | | | | | [place] [address] | | | | | | [phone] | | | | | | | | | | | | County HistorianNaomi | | +--------+ + + + + documented as of this encounter Visit Diagnoses + + | Diagnosis | + + | NO DX AVAILABLE - Primary NO DIAGNOSIS LISTED ON ORDER | + + documented in this encounter
--- OUTSIDE RECORDS SUMMARY | ~2019-05-17 | XMS | Encounter Summary ---
Demographics + + + | Address | [address] [facility] | | | [place] [address] | + + + | Home Phone [...] + | Author | [facility] | | | and Azana | + + + | Organization | [facility] | | | and Azana [...] [place], [place] | | | | | [address] | | + + + + + | Helena Doherty | ECON | [place], | | | | | [place] [address] | | + + + + + Care Team Providers + +------+ + | Care Reservationist Name | Role | Phone | + +------+ + | Nathan Luevano DO | PCP | | + +------+ + Encounter Details +--------+ + + + + | Date | Type | Department | Care Team | Description | +--------+ + + + + | 10/26/ | Hospital | [facility] | Agusto Pereira MD | Back pain, | | 2017 | Encounter | MED CTR XRAY [address] | [address] | unspecified back | | | | [place] | [place] [address] | location, | | | | [place] [address] | [phone] | unspecified back | | | | [phone] | | pain laterality, | | | [...] | | | | | [place] [address] | | | | | | [phone] | | | | | | | | | | | | Manager EmergencyNaomi | | +--------+ + + + + [...] [address] | [place] | [phone] | | [facility] | | [address] | | | - IMAGING | | | | + + + + + documented in this encounter Visit Diagnoses + + | Diagnosis | + + | Back pain, unspecified back location, unspecified back pain laterality, unspecified | | chronicity | + + documented in this encounter"
--- OUTSIDE RECORDS SUMMARY | ~2019-05-17 | XMS | Encounter Summary ---
Demographics + + + | Address | [address] [facility] | | | [place] [address] | + + + | Home Phone | | + + + | Preferred Language | Unknown | + + + | Marital Status | | + + + | Sabianist Affiliation | 1077 | + + + | Race | Unknown | + + + | Ethnic Group | Unknown | + + + Author + + + | Author | [facility] | | | and Azana | + + + | Organization | [facility] | | | and [...] [place], [place] | | | | | [address] | | + + + + + | Helena Doherty | ECON | [place], | | | | | [place] [address] | | + + + + + Care Team Providers + +------+ + | Care Private Equity Associate Name | Role | Phone | + +------+ + | Nathan Luevano DO | PCP | | + +------+ + Encounter Details +--------+ + + + + | Date | Type | Department | Care Team | Description | +--------+ + + + + | 11/01/ | Episode | [facility] [place] | Jarred, | | | 2017 | Changes | NEUROSURGERY [address] | [facility] | | | | | [address] | Deoiling Machine Operator | | | | | [place], [place] | | | | | | [address] | | | | | | [phone] | | | +--------+ + + + [...] | | | | | [place] [address] | | | | | | [phone] | | | | | | | | | | | | Range RiderNaomi | | +--------+ + + + + documented as of this encounter Visit Diagnoses Not on filedocumented in this encounter"
--- OUTSIDE RECORDS SUMMARY | ~2019-05-17 | XMS | Encounter Summary ---
Demographics + + + | Address | [address] | | | [place] [address] | + + + | Home Phone | | + + + | Preferred Language | Unknown | + + + | Marital Status | | + + + | Baptism Affiliation | Unknown | + + + | Race | White | + + + | Ethnic Group | Not or | + + + Author + + + | Author | [facility] | + + + | Organization | [facility] | + + + | Address | Unknown | + + + | Phone | Unavailable | + + + Support + + +---------+ + | Name | Relationship | Address | Phone | + + +---------+ + | Alon Santiago | ECON | Unknown | | + + +---------+ + Care Team Providers + +------+ + | Care Neuropsychiatrist Name | Role | Phone | + +------+ + | Thee Boss MD | PCP | | + +------+ + Encounter Details +--------+ + + + + | Date | Type | Department | Care Team | Description | +--------+ + + + + | 09/10/ | Document-Sc | UNKNOWN DEPARTMENT | Unknown . | | | 2013 | anned | [address] | | | | | | [address] | | | | | | [place], [place] | | | | | | [address] | | | +--------+ + + + [...] | + +--------+ + + + | LAB REPORTS | | 09/10/2013 | | Results for this | | | | 12:00 AM | | procedure are in the | | | | PDT | | results section. | + +--------+ + + + documented in this encounter Results LAB REPORTS (09/10/2013 12:00 AM PDT) + + + | Narrative | Performed At | + + + | | | | | | + + + + + | Procedure Note | + + | Other, Faculty - 09/26/2013 8:18 AM PDT | + + documented in this encounter Visit Diagnoses Not on filedocumented in this encounter"
--- OUTSIDE RECORDS SUMMARY | ~2019-05-17 | XMS | Encounter Summary ---
Demographics + + + | Address | [address] [facility] | | | [place] [address] | + + + | Home Phone [...] | [facility] | | | and Azana | + + + | Organization | [facility] | [...] [place], [place] | | | | | [address] | | + + + + + | Helena Doherty | ECON | [place], | | | | | [place] [address] | | + + + + + Care Team Providers + +------+ + | Care Service Observer Chief Name | Role | Phone | + [...] | | | | | [address] | [place], [place] | | | | | [place], [place] | [address] | | | | | [address] | | | | | | [phone] | Jerry Gómez, | | | | [...] +----+---+ + + | | 0 | [place] | | | | 8 | 43-degrees [...] [address] | | eral | Antecubital; [id number] | Audra Palmer RN | Marly Ordonez [...] | | | | | | [place] [address] | | | | | | [phone] | | | | | | | | | | | | Trouble OperatorNaomi | | +--------+ + + + [...]
--- OUTSIDE RECORDS SUMMARY | ~2019-05-17 | XMS | Encounter Summary ---
Demographics + + + | Address | [address] [facility] | | | [place] [address] | + + + | Home Phone [...] | Author | [facility] | | | and Azana | + + + | Organization | [facility] | | | and Azana [...] [place], [place] | | | | | [address] | | + + + + + | Helena Doherty | ECON | [place], | | | | | [place] [address] | | + + + + + Care Team Providers + +------+ + | Care Solid Tire Finisher Name | Role | Phone | + +------+ + | Thee Boss MD | PCP | | + +------+ + Encounter Details +--------+ + + + + | Date | Type | Department | Care Team | Description | +--------+ + + + + | 10/02/ | Abstract | [facility] [place] | Brendan Orlando MD | | | 2014 | | OTOLARYNGOLOGY [address] | [address] [place] | | | | | [address] | [address] [place], | | | | | [place], [place] | [place] [address] | | | | | [address] | [phone] | | | | | [phone] | | | +--------+ + + + [...] | | | | | [place] [address] | | | | | | [phone] | | | | | | | | | | | | Historical Society DirectorNaomi | | +--------+ + + + + documented as of this encounter Visit Diagnoses Not on filedocumented in this encounter"
--- OUTSIDE RECORDS SUMMARY | ~2019-05-17 | XMS | Encounter Summary ---
Demographics + + + | Address | [address] [facility] | | | [place] [address] | + + + | Home Phone [...] | Author | [facility] | | | and Azana | + + + | Organization | [facility] [...] [place], [place] | | | | | [address] | | + + + + + | Helena Doherty | ECON | [place], | | | | | [place] [address] | | + + + + + Care Team Providers + +------+ + | Care Casting Machine Operator Name | Role | Phone [...] | | | bursitis, | Ave | [address] Phone: | | | | | left hip | [place], | [phone] | | | | | M70.61 | [place] | Fax: | | | | | (ICD-10-CM) | [address] | [phone] | | | | | - | Phone: | | | | | | Trochanteric | [phone] | | | | | | bursitis, | Fax: | | | | | | right hip | [phone] | | | | | | M79.7 [...] + | 09/02/ | Office | [facility] | Aiyana Fish, | Fibromyalgia | | 2019 | Visit | [facility] | PT [address] | (Primary Dx); Neck | | | | [address] | [place] | pain; Trochanteric | | | | [place] | [address] | bursitis of both | | | | [address] | | hips | | | | [phone] | | | +--------+---------+ + + + [...] different fro m the original. [facility] [address] [place] [address] Physical Therapy Daily Treatment Note Date: 09/02/2018 Patient Information Patient Name: Ashly Santiago Date of : 1940 Age: 78 y.o. Encounter Diagnoses Code Name Primary? M79.7 Fibromyalgia Yes M54.2 Neck pain M70.61, M70.62 Trochanteric bursitis of both hips Date of Onset: 04/10/2018 Referring Provider: Sophia Bush PA-C Rehab Precautions Office Visit from 04/17/[address] [facility] PT OP Rehab Precautions Precautions None Rehab Learning Style Office Visit from 04/17/[address] [facility] PT OP Office Visit fro m 10/19/[address] [facility] PT OP Learning Style [...] | | | | | | [place] [address] | | | | | | [phone] | | | | | | | | | | | | Kiln Transfer OperatorNaomi | | +--------+ + + + [...]
--- OUTSIDE RECORDS SUMMARY | ~2019-05-17 | XMS | Encounter Summary ---
Demographics + + + | Address | [address] [facility] | | | [place] [address] | + + + | Home Phone | | + + + | Preferred Language | Unknown | + + + | Marital Status | | + + + | Rastafari Affiliation | Unknown | + + + | Race | White | + + + | Ethnic Group | Not or | + + + Author + + + | Author | [facility] | + + + | Organization | [facility] | + + + | Address | Unknown | + + + | Phone | Unavailable | + + + Support + + +---------+ + | Name | Relationship | Address | Phone | + + +---------+ + | Alon Santiago | ECON | Unknown | | + + +---------+ + Care Team Providers + +------+ + | Care Field Nurse Case Manager Name | Role | Phone | + +------+ + | Thee Boss MD | PCP | | + +------+ + Encounter Details +--------+ + + + + | Date | Type | Department | Care Team | Description | +--------+ + + + + | 09/30/ | Document-Sc | UNKNOWN DEPARTMENT | Unknown . | | | 2013 | anned | [address] | | | | | | [address] | | | | | | [place], [place] | | | | | | [address] | | | +--------+ + + + [...]
--- OUTSIDE RECORDS SUMMARY | ~2019-05-17 | XMS | Encounter Summary ---
Demographics + + + | Address | [address] | | | [place] [address] | + + + | Home Phone | | + + + | Preferred Language | Unknown | + + + | Marital Status | | + + + | Gnosticist Affiliation | 1077 | + + + | Race | Unknown | + + + | Ethnic Group | Unknown | + + + Author + + + | Author | [facility] | | | and Azana | + + + | Organization | [facility] | | | and [...] [place], [place] | | | | | [address] | | + + + + + | Helena Doherty | ECON | [place], | | | | | [place] [address] | | + + + + + Care Team Providers + +------+ + | Care Class A Truck Driver Name | Role | Phone | [...] + + | 09/19/ | Office | [facility] | Brendan Orlando MD | Epistaxis (Primary | | 2012 | Visit | OTOLARYNGOLOGY [address] | [address] | Dx); Other diseases | | | | [address] | [address] [place], | of nasal cavity and | | | | [place], [place] | [place] [address] | sinuses | | | | [address] | [phone] | | | | | [phone] | | | +--------+---------+ + + + [...] MD - 09/19/2012 12:23 PM PDTSee dictation #[id number] signed by Maikol Orlando MD at 09/19/2012 12:28 PM Brendan Kennedy MD - 09/19/2012 12:00 AM [facility] [address] [place] [address] FAX: [phone] OFFICE VISIT NEW PATIENT VISIT HISTORY: The [...] to heal it. Brendan Orlando MD / [facility] JOB #: [id number] signed by Brendan Orlando MD at 09/20/2012 [...] [address]NA | | | | | | [place] [address] | | | | | | [phone] | | | | | | | | | | | | Aquarium SpecialistNaomi | | +--------+ + + + + documented as of this encounter Visit Diagnoses + + | Diagnosis | + + | Epistaxis - Primary | + + | Other diseases of nasal cavity and sinuses(478.19) Other diseases of nasal cavity and | | sinuses | + + documented in this encounter
--- OUTSIDE RECORDS SUMMARY | ~2019-05-17 | XMS | Encounter Summary ---
Demographics + + + | Address | [address] [facility] | | | [place] [address] | + + + | Home Phone [...] + | Author | [facility] | | | and Azana | + + + | Organization | [facility] | | | and [...] [place], [place] | | | | | [address] | | + + + + + | Helena Doherty | ECON | [place], | | | | | [place] [address] | | + + + + + Care Team Providers + +------+ + | Care Delivery Truck Driver Name | Role | Phone [...] + + | 02/07/ | Office | [facility] | Agusto Pereira MD | Lumbar radiculopathy | | 2017 | Visit | NEUROSURGERY [address] | [address] | (Primary Dx); 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 Lisa ent advised at this time to stop: diclofenac, hydroxychloroquine, methotrexate, multi vits ( 7 days prior); losartan-HCTZ (24 hours prior). Patient verbalized understanding. All questio ns answered at this time. I Rita Kearney RN witnessed the patient leaving the office with a LSO which was provided by a renewals representative of [facility]. Rita Kearney RN documented in this en [...] | | | | | [place] [address] | | | | | | [phone] | | | | | | | | | | | | Car VarnisherNaomi | | +--------+ + + + + [...]
--- OUTSIDE RECORDS SUMMARY | ~2019-05-17 | XMS | Encounter Summary ---
Demographics + + + | Address | [address] [facility] | | | [place] [address] | + + + | Home Phone | | + + + | Preferred Language | Unknown | + + + | Marital Status | | + + + | Jew Affiliation | Unknown | + + + [...] Team Providers + +------+ + | Care Recyclable Materials Distributor Name | Role | Phone | + [...] | | | Amara Chatman Mailcode: | [place], [place] | | | | | [address] Physician's | [address] | | | | | [address] [facility] Floor | [phone] | | | | | [place], [place] | | | | | | [address] | | | | | | [phone] | | | +--------+ + + + [...]
--- OUTSIDE RECORDS SUMMARY | ~2019-05-17 | XMS | Encounter Summary ---
Demographics + + + | Address | [address] [facility] | | | [place] [address] | + + + | Home Phone [...] + | Author | [facility] | | | and Azana | + + + | Organization | [facility] | | | and Azana | [...] [place], [place] | | | | | [address] | | + + + + + | Helena Doherty | ECON | [place], | | | | | [place] [address] | | + + + + + Care Team Providers + +------+ + | Care Air Bag Buffer Name | Role | Phone | + [...] + + | 09/04/ | Office | [facility] | Osman Beth | Sacroiliitis (HCC) | | 2012 | Visit | PHYSIATRY [address] | MD Dee [address] | (Primary Dx); | | | | [place], | [place], [place] | Bursitis, hip; Facet | | | | [place] [address] | [address] | arthritis of lumbar | | | | [phone] | | region; | | | | [...] - 09/04/2012 11:39 AM PDTFollow-up at the [facility] thirty minutes before your scheduled procedure to [...] our off ice. Please also provide a team driver to take you home on the [...] | | | | | | [place] [address] | | | | | | [phone] | | | | | | | | | | | | Institution LibrarianNaomi | | +--------+ + + + + [...]
--- OUTSIDE RECORDS SUMMARY | ~2019-05-17 | XMS | Encounter Summary ---
Demographics + + + | Address | [address] [facility] | | | [place] [address] | + + + | Home Phone | | + + + | Preferred Language | Unknown | + + + | Marital Status | | + + + | Anabaptist Affiliation | [id number] | + + + | Race | Unknown | + + + | Ethnic Group | Unknown | + + + Author + + + | Author | [facility] | | | and Azana | + + + | Organization | [facility] | | [...] [place], [place] | | | | | [address] | | + + + + + | Helena Doherty | ECON | [place], | | | | | [place] [address] | | + + + + + Care Team Providers + +------+ + | Care Size Maker Name | Role | Phone | [...] | Degenerative | [address] | [place], [place] | | | | | disc | [place] | [address] Phone: | | | | | disease, | [address] | [phone] | | | | | lumbar | Phone: | Fax: | | | | | Lumbar | [phone] | [phone] | | | | | foraminal | Fax: | | | | | | stenosis | [phone] | | | | | | Fibromyalgia [...] + + | 12/13/ | Office | [facility] | Fay, | Sacroiliitis (HCC) | | 2017 | Visit | MED CTR THERAPY PT | FABIAN Castillo [address] | (Primary Dx); | | | | OP [address] | [facility], | Fibromyalgia | | | | [place] | [place] [address] | | | | | [address] | [phone] | | | | | [phone] | | | | | | | Aiyana Fish S, PT | | | | | | [address] | | | | | | [place] | | | | | | [phone] | | | | | | | [...] THERAPY PT OP [address] [place] [address] Physical Therapy Daily Treatment Note Date: 12/13/2016 Patient Information Patient Name: Ashly Santiago Date of : 1940 Age: 76 y.o. Encounter Diagnoses Code Name Primary? M46.1 Sacroiliitis (HCC) Yes M79.7 Fibromyalgia Date of Onset: 06/08/2016 Referring Provider: Anna Aponte PA-C Rehab Precautions Flowsheet Row Office Visit from 10/19/2016 in [facility] THER[facility]Y PT OP Rehab Precautions Precautions None Rehab Learning Style Flowsheet Row Office Visit from 10/19/2016 in [facility] CTR THERAPY PT [...] | | | | | [place] [address] | | | | | | [phone] | | | | | | | | | | | | Software EducatorNaomi | | +--------+ + + + + documented as of this encounter Visit Diagnoses + + | Diagnosis | + + | Sacroiliitis (HCC) - Primary Sacroiliitis, not elsewhere classified | + + | Fibromyalgia Mylagia and myositis, unspecified | + + documented in this encounter"
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
--- OUTSIDE RECORDS SUMMARY | ~2019-05-17 | XMS | Encounter Summary ---
Demographics + + + | Address | [address] [facility] | | | [place] [address] | + + + | Home Phone [...] Providers + +------+ + | Care Digital Sales Assistant Name | Role | Phone | [...] 2015 | Encounter | Palmira Sen | [address] [facility] | | | | | [address] | [address], | | | | | Amara Chatman Mailcode: | [place] [address] | | | | | [address] | [phone] | | | | | [address], [address] Floor | | | | | | [place], [place] | | | | | | [address] | | | | | | [phone] | | | +--------+ + + + [...]
--- OUTSIDE RECORDS SUMMARY | ~2019-05-17 | XMS | Encounter Summary ---
Demographics + + + | Address | [address] [facility] | | | [place] [address] | + + + | Home Phone [...] | Author | [facility] | | | and Azana | + + + | Organization | [facility] | | [...] [place], [place] | | | | | [address] | | + + + + + | Helena Doherty | ECON | [place], | | | | | [place] [address] | | + + + + + Care Team Providers + +------+ + | Care Service Writer Name | Role | Phone | + [...] | y Scoliosis | [address] | [address] Phone: | | | | | of lumbar | [place], | [phone] | | | | | spine, | [place] [address] | Fax: | | | | | unspecified | Phone: | [phone] | | | | | scoliosis | [phone] | | | | | | type | Fax: | | | | | | Sacroiliitis | [phone] | | | | | | ([facility]) | | | +--------+ + + + + + Reason for Visit +---------+ + | Reason | Comments | +---------+ + | Post Op | 9M PO | +---------+ + Encounter Details +--------+---------+ + + + | Date | Type | Department | Care Team | Description | +--------+---------+ + + + | 11/15/ | Office | [facility] | Onesimo Oliveira | S/P lumbar fusion | | 2018 | Visit | NEUROSURGERY [address] | [address] | (Primary Dx); Lumbar | | | | [address] | [address] | radiculopathy; | | | | [place], [place] | [place], [place] | Scoliosis of lumbar | | | | [address] | [address] | spine, unspecified | | | | [phone] | | scoliosis type; | | | [...] from the original. Onesimo Oliveira PA-C [address] [facility], [address] [place] [address] FAX: [phone] NEUROSURGERY FOLLOW-UP CHIEF COMPLAINT: Chief Complaint Patient [...] came back from a long trip to [place], her and her quach arron wheelchair assistance [...] t hat they can avoid additional surgery. extermination supervisor pain medication does not appear to be needed. We will send a referral for Dr. Beth. The patient no longer needs follow-up for [...] | | | | | | [place] [address] | | | | | | [phone] | | | | | | | | | | | | Hot WorkerNaomi | | +--------+ + + + [...]
--- OUTSIDE RECORDS SUMMARY | ~2019-05-17 | XMS | Encounter Summary ---
Demographics + + + | Address | [address] [facility] | | | [place] [address] | + + + | Home Phone | | + + + | Preferred Language | Unknown | + + + | Marital Status | | + + + | Advent Affiliation | Unknown | + + + [...] Team Providers + +------+ + | Care Java Systems Analyst Name | Role | Phone [...] | | 2013 | | Palmira Donato, LIVING SUPERVISOR [address] | | | | | [address] | [address] | | | | | Amara Chatman Mailcode: | [place], [place] | | | | | [address]'s | [address] | | | | | [address], [address] Floor | [phone] | | | | | [place], [place] | | | | | | [address] | | | | | | [phone] | | | +--------+ + + + [...]
--- OUTSIDE RECORDS SUMMARY | ~2019-05-17 | XMS | Encounter Summary ---
Demographics + + + | Address | [address] [facility] | | | [place] [address] | + + + | Home Phone [...] Team Providers + +------+ + | Care Electrician Constructor Supervisor Name | Role | Phone | [...] 2012 | Encounter | Physicians [address] Donato, BURNT LIME DRAWER [address] | | | | | [address] | [address] | | | | | Amara Chatman Mailcode: | [place], [place] | | | | | [address] | [address] | | | | | [address], [facility] [address] | [phone] | | | | | [place], [place] | | | | | | [address] | | | | | | [phone] | | | +--------+ + + + [...]
--- OUTSIDE RECORDS SUMMARY | ~2019-05-17 | XMS | Encounter Summary ---
Demographics + + + | Address | [address] [facility] | | | [place] [address] | + + + | Home Phone [...] Author | [facility] | | | and Azana | + + + | Organization | [facility] | [...] [place], [place] | | | | | [address] | | + + + + + | Helena Doherty | ECON | [place], | | | | | [place] [address] | | + + + + + Care Team Providers + +------+ + | Care Field Reimbursement Manager Name | Role | Phone | [...] | | y | [address] | [place], [place] | | | | | | [address] | [address] | | | | | | [place], | Phone: | | | | | | [place] [address] | [phone] | | | | | | Phone: | Fax: | | | | | | [phone] | [phone] | | | | | | Fax: | | | | | | | [phone] | | +--------+--------+ + + + + Encounter Details +--------+ + + + + | Date | Type | Department | Care Team | Description | +--------+ + + + + | 05/07/ | Orders Only | [facility] | RubenNamy, | Cervical | | 2018 | | PHYSIATRY [address] | PA-C [address] | radiculopathy | | | | [place], | [address] [place] | (Primary Dx) | | | | [place] [address] | [place] [address] | | | | | [phone] | [phone] | | | | | | | [...] | | | | | [place] [address] | | | | | | [phone] | | | | | | | | | | | | Threader, [facility] | | +--------+ + + + [...]
--- OUTSIDE RECORDS SUMMARY | ~2019-05-17 | XMS | Encounter Summary ---
Demographics + + + | Address | [address] [facility] | | | [place] [address] | + + + | Home Phone [...] Author | [facility] | | | and Azana | + + + | Organization | [facility] | | [...] [place], [place] | | | | | [address] | | + + + + + | Helena Doherty | ECON | [place], | | | | | [place] [address] | | + + + + + Care Team Providers + +------+ + | Care Assembly Machine Set Up Mechanic Name | Role | Phone | [...] 2017 | | GASTROENTEROLOGY | [address] [place] | | | | | [address] [place] | [address] [place] | | | | | [address] [place], [place] | [address] | | | | | [address] | | | | | | [phone] | | | +--------+ + + + [...] | | | | | [place] [address] | | | | | | [phone] | | | | | | | | | | | | Hr ClerkNaomi | | +--------+ + + + + documented as of this encounter Visit Diagnoses Not on filedocumented in this encounter"
--- OUTSIDE RECORDS SUMMARY | ~2019-05-17 | XMS | Encounter Summary ---
Demographics + + + | Address | [address] [facility] [address] | | | [place] [address] | + + + | Home Phone | | + + + | Preferred Language | Unknown | + + + | Marital Status | | + + + | Religion Affiliation | 1077 | + + + | Race | Unknown | + + + | Ethnic Group | Unknown | + + + Author + + + | Author | [facility] | | | and Azana | + + + | Organization | [facility] | | | and [...] [place], [place] | | | | | [address] | | + + + + + | Helena Doherty | ECON | [place], | | | | | [place] [address] | | + + + + + Care Team Providers + +------+ + | Care Optoelectronic Technician Name | Role | Phone | [...] unspecified | [address] | [address], | | | | | Patient is | [address] | [address] | | | | | having | [address] | [place], | | | | | symptoms and | [place], | [place] [address] | | | | | will call | [place] | Phone: | | | | | her pcp to | [address] | [phone] | | | | | send | Phone: | Fax: | | | | | referrals/Ae | [phone] | [phone] | | | | | tna/Bassem/s | Fax: | | | | | | elf | [phone] | | | | | | Procedures | | | | | | | OFFICE VISIT | | | | | | | REGULAR | | | +--------+--------+ + + + + Encounter Details +--------+---------+ + + + | Date | Type | Department | Care Team | Description | +--------+---------+ + + + | 09/18/ | Office | [facility] | Joshua Hilliard MD | Irritable bowel | | 2019 | Visit | GASTROENTEROLOGY | [address], [place] | syndrome with both | | | | [address] [place] | [address] [place], [place] | constipation and | | | | [address] [place], [place] | [address] | diarrhea (Primary | | | | [address] | | Dx) | | | | [phone] | | | +--------+---------+ + + + [...] June 2016 3 adenomas removed without atypia. [facility] colonic biopsies at that time were [...] History: Procedure Laterality Date APPENDECTOMY 1960 Exploratory; [place] BLADDER SUSPENSION 2005 with Rectocele repair; Dr. Reid and Dr. Watkins BUNIONECTOMY 04/10/2007 Darlene's Bunion; Dr. Db Berrios CATARACT REMOVAL Bilateral 1996 [facility] CHOLECYSTECTOMY, LAPAROSCOPIC 07/11/2011 Dr. Marquez COLONOSCOPY 2003 [facility] COLONOSCOPY N/A 05/23/2017 Procedure: COLONOSCOPY; Surgeon: Joshua Hilliard MD; Location: [facility] MEDICAL PROCEDURE UNIT EGD AND COLONOSCOPY 07/06/2009 [facility] Dr. Jc EGD AND COLONOSCOPY 2009 ELECTROCARDIOGRAM 05/19/2009 Dr. Boss ELECTROCARDIOGRAM 08/12/2009 Dr. Radha Stafford; [facility] ENDOSCOPY 07/07/2011 [facility]; Dr. Marquez FINGER TRIGGER RELEASE Right 05/28/2014 Middle finger; Dr. Donta Agawral FINGER TRIGGER RELEASE FOOT NEUROMA SURGERY Left 1998 HEEL SPUR SURGERY Right 1997 Dr. Berrios HYSTERECTOMY, TOTAL ABDOMINAL 1972 [place] LUMBAR SPINE SURGERY Anterior 02/14/2017 Procedure: L4-5 Lateral Anterior Interbody Fusion, L5-S1 Transforaminal Lumbar Interbody F usion; Surgeon: Agusto Pereira MD; Location: [facility] MAIN OR NASAL SEPTUM SURGERY 06/06/2016 Dr. Lindsey; [facility] PERINEAL SKIN BRIDGE 02/[address] Reid RECTOCELE REPAIR 2006 with bladder suspension; Dr. Maranda Watkins RETINAL DETACHMENT SURGERY 1997 Dr. Andrade ROTATOR CUFF REPAIR Right 04/20/2015 Ruptured and Tendon repair Dr. [facility] TONSILLECTOMY [address] [place], [place] Family History Problem Relation Age of [...] | | | | | [address] [facility] | | | | | | [place] [address] | | | | | | [phone] | | | | | | | | | | | | Rehab PhysicianNaomi | | +--------+ + + + + documented as of this encounter Visit Diagnoses + + | Diagnosis | + + | Irritable bowel syndrome with both constipation and diarrhea - Primary | + + documented in this encounter
--- OUTSIDE RECORDS SUMMARY | ~2019-05-17 | XMS | Encounter Summary ---
Demographics + + + | Address | [address] | | | [place] [address] | + + + | Home Phone | | + + + | Preferred Language | Unknown | + + + | Marital Status | | + + + | Mu-Ism Affiliation | Unknown | + + + [...] Team Providers + +------+ + | Care Hospital Insurance Clerk Name | Role | Phone | + +------+ + | Bassem Nathan | PCP | | + +------+ + Reason for Visit + + + | Reason | Comments | + + + | Refill Encounters | methotrexate | + + + Encounter Details +--------+ + + + + | Date | Type | Department | Care Team | Description | +--------+ + + + + | 10/18/ | MyChart | Rheumatology at | Rosas Lucia MD | RE: Methotrexate | | 2016 | Encounter | Palmira Sen | [address] [facility] | | | | | [address] | [address] [place], | | | | | Am[place] Chatman Mailcode: | [place] [address] | | | | | [address] Physician's | [phone] | | | | | [address]ancy, 4th Floor | | | | | | [place], [place] | | | | | | [address] | | | | | | [phone] | | | +--------+ + + + [...]
--- OUTSIDE RECORDS SUMMARY | ~2019-05-17 | XMS | Encounter Summary ---
Demographics + + + | Address | [address] [address] | | | [place] [address] | + + + | Home Phone [...] | Author | [facility] | | | and Azana | + + + | Organization | [facility] | | | and Azana [...] [place], [place] | | | | | [address] | | + + + + + | Helena Doherty | ECON | [place], | | | | | [place] [address] | | + + + + + Care Team Providers + +------+ + | Care System Consultant Name | Role | Phone | + +------+ + | Thee Boss MD | PCP | | + +------+ + Reason for Visit + + + | Reason | Comments | + + + | Back Pain | Low back pain | + + + Encounter Details +--------+---------+ + + + | Date | Type | Department | Care Team | Description | +--------+---------+ + + + | 01/09/ | Office | [facility] | Osman Beth | Fibromyalgia | | 2012 | Visit | PHYSIATRY [address] | [address], [address] | (Primary Dx); | | | | [place], | [place], [place] | DEGENERATIVE DISC | | | | [place] [address] | [address] | DISEASE, LUMBAR | | | | [phone] | | SPINE; BACK PAIN, | | | | | | LUMBAR; Facet | | | | | | arthritis of lumbar | | | | | | region; Bursitis, | | | | | | hip; Sacroiliitis | | | | | | ([facility]) | +--------+---------+ + + + Social History [...] + + + | Blood Pressure | 133/73 | 01/09/2013 10:02 AM | | | | | PDT | | + + + + + | Pulse | 68 | 01/09/2013 10:02 AM | | | | | PDT [...] Weight | 88.9 kg (196 lb) | 01/09/2013 10:02 AM | | | | | PDT | | + + + + + | Height | 165.1 cm (5' 5") | 01/09/2013 10:02 AM | | | | | PDT | | + + + + + | Body Mass Index | 32.62 | 01/09/2013 10:02 AM | | | | | PDT | | + + + + + documented in this encounter Progress Notes Osman Beth MD - 01/09/2013 10:09 AM PDT Subjective: Patient ID: Ashly Santiago is a 73 y.o. female. Chief Complaint Patient presents with Back Pain Low back pain HPI The patient is being seen today in follow-up for complaints of chronic low back pain as well as bilateral lateral hip pain. The patient has been seen for these complaints in the past. She has been found to have multilevel DDD, facet arthritis, sacroiliitis, trochanteri c bursitis and fibromyalgia. She has had multiple treatments from me and other providers. PT has never provided much relief. Steroid injections used to help but the last few have no t provided any relief. She started taking Cymbalta recently which she notes has helped with her mood but not with her pain. She describes her symptoms as aching but can become sharp. Her symptoms have been constant. Her symptoms worsen with walking, standing and with bending. Her symptoms improve with sitt ing and when resting. She denies numbness. She describes weakness in the legs, especially in the knees when going up the stairs. She denies bowel and bladder dysfunction. She also renée es saddle anesthesia. Treatments for these complaints have included multiple prior injections, she is currently u sing Cymbalta which has not been helping with pain control. Prior injections have included most recently a bilateral L5-S1 facet injection which was pe rformed by me on 11/20/2012. She also had prior right SI joint and trochanteric bursa injecti ons as well as a bilateral L4-L5 epidural steroid injection. Patient's medications, allergies, past medical, surgical, social [...] There was tenderness to palpation over the greater trochanters bilaterally as well as pain in the sacral sulci, right greater than left. The patient localized the majority of the pain to the L4-L5 region, right greater th an left. Lumbar facet loading was positive. Strength testing showed 5/5 strength throughou t the lower extremities. The patient was able to heel and toe walk without difficulty. The re was no redness, effusion, warmth or joint line tenderness in the knees or ankles. She wa s tender to palpation almost everywhere I touched. Assessment: 1. Fibromyalgia 2. DEGENERATIVE DISC DISEASE, LUMBAR SPINE 3. BACK PAIN, LUMBAR 4. Facet arthritis of lumbar region 5. Bursitis, hip 6. Sacroiliitis Plan: 1. The patient has chronic widespread pain likely for multiple sources. She has degenerat la nena disc disease of the lumbar spine, facet arthritis and fibromyalgia as well as other pain ful conditions. She has also been diagnosed from arthritis but it appears that the diagnosi s is still in question. She has tried physical therapy, injections, and multiple medication s. Unfortunately she continues to have significant discomfort. She has had some improvemen t in her mood with Cymbalta but unfortunately this has not provided much pain relief. Becau se of the lack of response to injections I did not feel that it is appropriate to try any ad ditional procedures. She has been intolerant of many medications including narcotics. I di d feel it may be worthwhile to try Lyrica in combination with the Cymbalta. The patient was given samples of Lyrica today as well as a prescription. She was advised to not sweet pickle maker the prescription from the pharmacy unless she felt they were helping her. 2. I'm not sure what else to offer this patient. It does not appear that she would be a c andidate for any surgical intervention. It may be worthwhile to have her to seek a consulta tion at a comprehensive pain management clinic. documented in this encounter Plan of Treatment [...] | | | | | | [place] [address] | | | | | | [phone] | | | | | | | | | | | | Director Of Property Management, [facility] | | +--------+ + + + + documented as of this encounter Visit Diagnoses + + | Diagnosis | + + | Fibromyalgia - Primary Mylagia and myositis, unspecified | + + | DEGENERATIVE DISC DISEASE, LUMBAR SPINE Degeneration of lumbar or lumbosacral | | intervertebral disc | + + | BACK PAIN, LUMBAR Lumbago | + + | Facet arthritis of lumbar region Lumbosacral spondylosis without myelopathy | + + | Bursitis, hip Enthesopathy of hip region | + + | Sacroiliitis (HCC) Sacroiliitis, not elsewhere classified | + + documented in this encounter
--- OUTSIDE RECORDS SUMMARY | ~2019-05-17 | XMS | Encounter Summary ---
Demographics + + + | Address | [address] [facility] [facility] | | | [place] [address] | + + + | Home Phone [...] Providers + +------+ + | Care Machine Deburrer Name | Role | Phone | + [...] 2012 | Encounter | Physicians Francy Donato, JUICE WEIGHER [address] | | | | | [address] | [address] | | | | | Amara Chatman Mailcode: | [place], [place] | | | | | [address] Physician's | [address] | | | | | Francy, [facility] Floor | [phone] | | | | | [place], [place] | | | | | | [address] | | | | | | [phone] | | | +--------+ + + + [...]
--- OUTSIDE RECORDS SUMMARY | ~2019-05-17 | XMS | Encounter Summary ---
Demographics + + + | Address | [address] [facility] | | | [place] [address] | + + + | Home Phone | | + + + | Preferred Language | Unknown | + + + | Marital Status | | + + + | Faith Affiliation | Unknown | + + + | Race | White | + + + | Ethnic Group | Not or | + + + Author + + + | Author | [facility] | + + + | Organization | [facility] | + + + | Address | Unknown | + + + | Phone | Unavailable | + + + Support + + +---------+ + | Name | Relationship | Address | Phone | + + +---------+ + | Alon Santiago | ECON | Unknown | | + + +---------+ + Care Team Providers + +------+ + | Care Cover Creaser Name | Role | Phone | + [...] 2014 | Encounter | Physicians Francy | [address] [facility] | | | | | [address] | [address] [place], | | | | | Amara Chatman Mailcode: | [place] [address] | | | | | [address] Physician's | [phone] | | | | | [address], 4th Floor | | | | | | [place], [place] | | | | | | [address] | | | | | | [phone] | | | +--------+ + + + [...]
--- OUTSIDE RECORDS SUMMARY | ~2019-05-17 | XMS | Encounter Summary ---
Demographics + + + | Address | [address] [facility] [facility] | | | [place] [address] | + + + | Home Phone [...] + +------+ + | Care Windows Desktop Engineer Name | Role | Phone | + +------+ + | Nathan Luevano | PCP | | + +------+ + Encounter Details +--------+------+ + + + | Date | Type | Department | Care Team | Description | +--------+------+ + + + | 06/15/ | Lab | Laboratory, | | Rheumatoid arthritis | | 2014 | | Specimen Collection | | ([facility]) | | | | at [address] | | | | | | [address] | | | | | | [place], | | | | | | [place] [address] | | | | | | [phone] | | | +--------+------+ + + + [...] | + + + + + | [facility] | [address] | [place] [address] | | | SERVICES, CORE | PARK [...] + + | [facility] | [address] [facility] | [place] [address] | | | SERVICES, CORE | PARK [...] | + + + + + | [facility] | [address] | [place] [address] | | | SERVICES, CORE | PARK [...] | | | LABORATORY | | | MALDIVIAN | | | SERVICES, | | | [...] [facility] [place] | [address] | [place] [address] | | | SERVICES, CORE | [address] | | | + + + + + documented in this encounter Visit Diagnoses + + | Diagnosis | + + | Rheumatoid arthritis (HCC) | + + documented in this encounter"
--- OUTSIDE RECORDS SUMMARY | ~2019-05-17 | XMS | Encounter Summary ---
Demographics + + + | Address | [address] [facility] | | | [place] [address] | + + + | Home Phone [...] Team Providers + +------+ + | Care Phytopathology Teacher Name | Role | Phone | [...] Therapy | Rheumatoid | MD Rosas | [address] | | | | | arthritis(71 | [address] | | | | | 4.0) ([facility]) | [address] | Mailcode: | | | | | Procedures | 2010 | [facility] | | | | | PHYSICAL | [facility] [place] | for Health | | | | | THERAPY | [address] | and Healing, | | | | | REFERRAL | Phone: | Building 1, | | | | | | [phone] | [address] Floor | | | | | | Fax: | [place], [place] | | | | | | [phone] | [address] | | | | | | | Phone: | | | | | | | [phone] | | | | | | | Fax: | | | | | | | [phone] | +--------+--------+ + + + + Reason [...] [address] | | | | | 4.0) ([facility]) | [place] [address] | [address] | | | | | Myalgia and | [address] | [place], | | | | | myositis, | [place], | [place] | | | | | unspecified | [place] [address] | [address] | | | | | Procedures | Phone: | Phone: | | | | | [place] | [phone] | [phone] | | | | | OFFICE/OUTPT | Fax: | Fax: | | | | | | [phone] | [phone] | | | | | VISIT,EST,LE | [...] 2013 | Visit | Physicians Francy | [address] | (Primary Dx) | | | | [address] | [address] [place], | | | | | [place] Chatman Mailcode: | [place] [address] | | | | | [address] Physician's | [phone] | | | | | Francy, [facility] Floor | | | | | | [place], [place] | | | | | | [address] | | | | | | [phone] | | | +--------+---------+ + + + [...] requested by: Tavia Linda, [place] [address] [place] [address] fax: [phone] CC: joint pain HPI: Ms Santiago is [...] labs but Dr Shelton, who was her Furnace Puncher, was not sure if the symptoms were [...] of systems. I s pent 20 minutes [id number] with the patient with over 50% in [...]
--- OUTSIDE RECORDS SUMMARY | ~2019-05-17 | XMS | Encounter Summary ---
Demographics + + + | Address | [address] [facility] | | | [place] [address] | + + + | Home Phone [...] Team Providers + +------+ + | Care Office Clinician Name | Role | Phone | + +------+ + | Nathan Luevano | PCP | | + +------+ + Reason for Visit + + + | Reason | Comments | + + + | Medication Refill | MTX/Plaquenil | + + + Encounter Details +--------+ + + + + | Date | Type | Department | Care Team | Description | +--------+ + + + + | 09/28/ | MyChart | Rheumatology at | Rosas Lucia MD | RE: Methotrexate and | | 2016 | Encounter | Physicians Francy | [address] [facility] | Plaquenil | | | | [address] [facility] | [address] [place], | Prescriptioins for | | | | [place] Chatman Mailcode: | [place] [address] | Ashly Santiago | | | | [address] Physician's | [phone] | | | | | [address], 4th Floor | | | | | | [place], [place] | | | | | | [address] | | | | | | [phone] | | | +--------+ + + + [...]
--- OUTSIDE RECORDS SUMMARY | ~2019-05-17 | XMS | Encounter Summary ---
Demographics + + + | Address | [address] [facility] | | | [place] [address] | + + + | Home Phone [...] Team Providers + +------+ + | Care Oil Developer Name | Role | Phone | + +------+ + | Thee Boss MD | PCP | | + +------+ + Encounter Details +--------+ + + + + | Date | Type | Department | Care Team | Description | +--------+ + + + + | 05/06/ | Hospital | Diagnostic | | | | 2012 | Encounter | Radiology at [facility] | | | | | | [address] | | | | | | [place]man Mailcode: | | | | | | [address] Physician's | | | | | | [place], | | | | | | [place] [address] | | | | | | [phone] | | | +--------+ + + + [...] + +--------+ + + + | X-RAY ELBOW 1 VIEW | Routin | 05/06/2013 | Joint pain | Results for this | | LEFT | e | 3:53 PM | | procedure are in the | | | | PST | | results section. | + +--------+ + + + documented in this encounter Results X-RAY ELBOW 1 VIEW LEFT (05/06/2013 3:53 [...] | + +---------+ + + | [facility] DEPARTMENT OF | | | | | RADIOLOGY | | | | + +---------+ + + documented in this encounter Visit Diagnoses + + | Diagnosis | + + | Joint pain Pain in joint, site unspecified | + + documented in this encounter"
--- OUTSIDE RECORDS SUMMARY | ~2019-05-17 | XMS | Encounter Summary ---
Demographics + + + | Address | [address] [facility] | | | [place] [address] | + + + | Home Phone [...] + + + | Author | [facility] | + + + | Organization | [facility] | + + + | Address | Unknown | + + + | Phone | Unavailable | + + + Support + + +---------+ + | Name | Relationship | Address | Phone | + + +---------+ + | Alon Santiago | ECON | Unknown | | + + +---------+ + Care Team Providers + +------+ + | Care Broke Beater Machine Operator Name | Role | Phone [...] | | | | | arthritis(71 | [address] | | | | | 4.0) ([facility]) | [address] | Mailcode: | | | | | Procedures | 2010 | [facility] | | | | | PHYSICAL | [place], [place] | for Health | | | | | THERAPY | [address] | and Healing, | | | | | REFERRAL | Phone: | Building 1, | | | | | | [phone] | [address] Floor | | | | | | Fax: | [place], [place] | | | | | | [phone] | [address] | | | | | | | Phone: | | | | | | | [phone] | | | | | | | Fax: | | | | | | | [phone] | +--------+--------+ + + + + Encounter Details +--------+---------+ + + + | Date | Type | Department | Care Team | Description | +--------+---------+ + + + | 09/07/ | Office | [place] [facility] | Luz Elena Duenas, | Fibromyalgia | | 2015 | Visit | Therapy Services at | MS,PT [address] | (Primary Dx); | | | | [facility] | [address] | Rheumatoid arthritis | | | | [address] | [place] [address] | | | | | Mailcode: [facility] | [phone] | | | | | [facility] | | | | | | and Healing, | | | | | | Building 1, | | | | | | Floor [place], [place] | | | | | | [address] | | | | | | [phone] | | | +--------+---------+ + + + [...] Elena Duenas MS,PT - 09/07/2014 1:42 PM [facility] itation Services Questions: Call [phone] Today's Date: 09/07/2014 Patient's Name: Ashly Santiago Recharger services: None Investigate Rod Chi Consider PT [...] LUZ ELENA DUENAS MS, PT Physical Therapist [facility] REHABIL[facility] AND HAND THERAPY [address] [facility], 1st [place] [address] documented in this encounter Progress Notes Luz Elena Duenas MS,PT - 09/07/2014 1:15 PM PDTFormatting of this note might be different f rom the original. Start of care: 09/07/2014 Date of onset: 08/30/2014 Referring/Attending Practitioner to Fibromyalgia Clinic: Rosas Lucia MD . Rheumatology Referring/Attending Provider. Tavia Zuniga MP Primary/Referral Diagnosis/ICD-9: Fibromyalgia/Myofascial Pain/729.1 Insurance: Payor: [facility] MEDICARE / Plan: AET MEDICARE PPO / Product Type: Medicare / Date of : 1940 Service period from: 09/07/2014 to: 10/07/14 Number visits used/authorized: 1 [facility] PHYSICAL THERAPY INITIAL EVALUATION Ashly Santiago MR# [id number] SUBJECTIVE: History of Presenting Problem: Ashly Santiago is a 74 y.o. female who was diagnosed with fi bromyalgia and rheumatoid arthritis. Problems for many years, since a teen. Diagnosed with R A just over a year ago. Planning a cruise soon and concerned about [facility] nsVick Limon presents with the following complaints/functional [...] access to the following equipment: pool and SureWaves machine. Patient reports a pain level of [...] 1:35-1:50 ASSESSMENT: Treatment diagnosis/ICD-9 code = Fibromyalgia/729.1 Aslhy requires services that can be safely and [...] Functional discharge goals, as discussed with the Ashly, due in 12 weeks: 1) Demonstrate independent [...] Chi Moving for Better Balance. Look at Sharps lifters for sensitive feet in bed Given series of morning warm up exercises and sit to stand strengthening exercise. Frequency/Duration: TBD by local therapist. Will return here as able to combine with other visits or medical appointments to [place]. Treatment began: 1 Treatment ended: 1:50 This note is to serve as the discharge summary if Ashly fails to attend further Physical T herapy appointments or contact the therapist regarding any change in their status. LUZ ELENA DUENAS MS, PT Physical Therapist [facility] REHABILITATION SERVICES AND HAND THERAPY [address] [facility], 1st [place] [address] documented in this encounter Plan of Treatment [...] | + +--------+ + + + | [facility] | Routin | 09/07/2014 | Fibromyalgia | | | EXERCISES | e | 3:49 PM | Rheumatoid arthritis | | | | | PDT | | | + +--------+ + + + | [facility] | Routin | 09/07/2014 | [...]
--- OUTSIDE RECORDS SUMMARY | ~2019-05-17 | XMS | Encounter Summary ---
Demographics + + + | Address | [address] | | | [place] [address] | + + + | Home Phone [...] Author | [facility] | | | and Azana | + + + | Organization | [facility] [...] [place], [place] | | | | | [address] | | + + + + + | Helena Doherty | ECON | [place], | | | | | [place] [address] | | + + + + + Care Team Providers + +------+ + | Care Security Software Engineer Name | Role | Phone [...] + + + + | 04/11/ | Telephone | [facility] | Andrew Miranda, | Kemar | | 2017 | | PHYSIATRY [address] | PA-C [address] | | | | | [place] Heard, | [address] [place] | | | | | [place] [address] | [place] [address] | | | | | [phone] | [phone] | | | | | | | [...] | | | | | [place] [address] | | | | | | [phone] | | | | | | | | | | | | Crankshaft BalancerNaomi | | +--------+ + + + + documented as of this encounter Visit Diagnoses Not on filedocumented in this encounter"
--- OUTSIDE RECORDS SUMMARY | ~2019-05-17 | XMS | Encounter Summary ---
Demographics + + + | Address | [address] [facility] [facility] [facility] | | | [place] [address] | + + + | Home Phone [...] | Author | [facility] | | | and Azana | + + + | Organization | [facility] | [...] [place], [place] | | | | | [address] | | + + + + + | Helena Doherty | ECON | [place], | | | | | [place] [address] | | + + + + + Care Team Providers + +------+ + | Care Instruction Librarian Name | Role | Phone | + [...] | | [address] | [place] [address] | location, | | | | [place] | [phone] | unspecified back | | | | [address] | | pain laterality, | | | | [phone] | | unspecified | | | | [...] | | | | | [place] [address] | | | | | | [phone] | | | | | | | | | | | | Molded Rubber Goods CutterNaomi | | +--------+ + + + + [...] ST. | [address] | [place], [place] | [phone] | | [facility] | | [address] | | | - IMAGING | | | | + + + + + documented in this encounter Visit Diagnoses + + | Diagnosis | + + | Back pain, unspecified back location, unspecified back pain laterality, unspecified | | chronicity - Primary | + + documented in this encounter"
--- OUTSIDE RECORDS SUMMARY | ~2019-05-17 | XMS | Encounter Summary ---
Demographics + + + | Address | [address] [facility] | | | [place] [address] | + + + | Home Phone [...] + | Author | [facility] | | | and Azana | + + + | Organization | [facility] [...] [place], [place] | | | | | [address] | | + + + + + | Helena Doherty | ECON | [place], | | | | | [place] [address] | | + + + + + Care Team Providers + +------+ + | Care Digital Account Coordinator Name | Role | Phone | + +------+ + | Nathan Luevano DO | PCP | | + +------+ + Encounter Details +--------+ + + + + | Date | Type | Department | Care Team | Description | +--------+ + + + + | 07/03/ | Orders Only | [facility] | Agusto Pereira MD | Brachial neuritis | | 2019 | | NEUROSURGERY [address] | [address] | (Primary Dx); | | | | [address] | [place] [address] | Spondylolisthesis of | | | | [place] | [phone] | cervical region; | | | | [address] | | Foraminal stenosis | | | | [phone] | | of cervical region | +--------+ + + + + Social [...] DAIANA | | | | | | [place] [address] | | | | | | [phone] | | | | | | | | | | | | Fur TrapperNaomi | | +--------+ + + + + documented as of this encounter Visit Diagnoses + + | Diagnosis | + + | Brachial neuritis - Primary Brachial neuritis or radiculitis nos | + + | Spondylolisthesis of cervical region Acquired spondylolisthesis | + + | Foraminal stenosis of cervical region Spinal stenosis in cervical region | + + documented in this encounter"
--- OUTSIDE RECORDS SUMMARY | ~2019-05-17 | XMS | Encounter Summary ---
Demographics + + + | Address | [address] [facility] [facility] [facility] | | | [place] [address] | + + + | Home Phone [...] + | Author | [facility] | | | and Azana | + + + | Organization | [facility] | | | and [...] [place], [place] | | | | | [address] | | + + + + + | Helena Doherty | ECON | [place], | | | | | [place] [address] | | + + + + + Care Team Providers + +------+ + | Care Delivery Table Feeder Name | Role | Phone | + [...] | | | bursitis, | Ave | [address] Phone: | | | | | left hip | [place], | [phone] | | | | | M70.61 | [place] | Fax: | | | | | (ICD-10-CM) | [address] | [phone] | | | | | - | Phone: | | | | | | Trochanteric | [phone] | | | | | | bursitis, | Fax: | | | | | | right hip | [phone] | | | | | | M79.7 [...] Description | +--------+---------+ + + + | 10/14/ | Office | [facility] | Aiyana Fish, | Fibromyalgia | | 2019 | Visit | [facility] | PT [address] | (Primary Dx); Neck | | | | [address] | [place] | pain; Trochanteric | | | | [place] | [address] | bursitis of both | | | | [address] | | hips | | | | [phone] | | | +--------+---------+ + + + [...] encounter Progress Notes Aiyana Fish, PT - 10/14/2018 12:45 PM PDTFormatting of this note might be different fro m the original. [facility] [address] [place] [address] Physical Therapy Daily Treatment Note Date: 10/14/2018 Patient Information Patient Name: Ashly Santiago Date of : 1940 Age: 78 y.o. Encounter Diagnoses Code Name Primary? M79.7 Fibromyalgia Yes M54.2 Neck pain M70.61, M70.62 Trochanteric bursitis of both hips Date of Onset: 04/10/2018 Referring Provider: Sophia Bush PA-C Rehab Precautions Office Visit from 04/17/2018 in [facility] PT OP Rehab Precautions Precautions None Rehab Learning Style Office Visit from 04/17/2018 in [facility] PT OP Office Visit fro m 10/19/2016 in [facility] PT OP Learning Style Patient's Optimum Learning Style listening, reading, observation, performance of task lis tening, reading, observation, performance of task Start Time: 1255 Stop time: 1345 Duration: 50 minutes Timed Treatment Codes: 50 minutes # of PT Visits to Date: 21 Subjective: Pt reports that her right knee has painful and her low back. She is discouraged that she i s in so much pain Pain Assessment: Pain Rating Pre Assessment: 6 Location: low back and right knee Objective: Exercise: Discussed regular exercise with her. She has quit her club membership but is wi lling to go take a look and see what she could do for exercise for now. Manual Treatment: Myofascial release and positional release therapy: Dural tube mobilizati on, psoas releases, upper and mid thoracic spine Assessment: Good response to treatment. Fascial release resulted in improved mobility in the lower bod y with better gait following the session. Plan: Continue with manual therapy and development of home program. Pt will check into community based exercise program at her local club in [place] Electronically signed by: Aiyana Fish, PT, 10/14/2018 14:46 Patient Name: Ashly Santiago/: 1940/ documented in [...] DAIANA | | | | | | [place] [address] | | | | | | [phone] | | | | | | | | | | | | Cereal ChemistNaomi | | +--------+ + + + + documented as of this encounter Visit Diagnoses + + | Diagnosis | + + | Fibromyalgia - Primary Mylagia and myositis, unspecified | + + | Neck pain Cervicalgia | + + | Trochanteric bursitis of both hips Enthesopathy of hip region | + + documented in this encounter"
--- OUTSIDE RECORDS SUMMARY | ~2019-05-17 | XMS | Encounter Summary ---
Demographics + + + | Address | [address] [facility] | | | [place] [address] | + + + | Home Phone [...] Team Providers + +------+ + | Care Fifth Hand Name | Role | Phone | [...] Description | +--------+---------+ + + + | 07/09/ | Office | Rheumatology at | Rosas Lucia MD | Rheumatoid arthritis | | 2014 | Visit | Palmira Sen | [address] | ([facility]) (Primary Dx) | | | | [address] | [address] [place], | | | | | [address] Mailcode: | [place] [address] | | | | | [address] Physician's | [phone] | | | | | [address], [address] Floor | | | | | | [place], [place] | | | | | | [address] | | | | | | [phone] | | | +--------+---------+ + + + [...] + + + | Blood Pressure | 112/70 | 07/09/2013 11:27 AM | | | | | PST | | + + + + + | Pulse | 72 | 07/09/2013 11:27 AM | | | | | PST [...] + + + + | Weight | 89.4 kg (197 lb) | 07/09/2013 11:27 AM | | | | | PST | | + + + + + | Height | - | - | | + + + + + | Body Mass Index | 32.78 | 04/07/2013 2:16 PM | | | | | PDT | | + + + + + documented in this encounter Progress Notes Rosas Lucia MD - 07/09/2013 11:24 AM PSTFormatting of this note might be different from t toby original. RHEUMATOLOGY NEW PATIENT CONSULT This consultation was requested by: Tavia Linda, [place]AL[place] [address] [facility] [place] [place] [address] fax: [phone] CC: Chief Complaint Patient presents with Follow-up [...] labs but Dr Shelton, who was her Community Relations Specialist, was not sure if the symptoms were from RA. She has been taken methotrexate for the past 12 months and Plaquenil for the past 10 months or so. She is not sure if that has helped and feels that the only way to be sure w ill be to discontinue it. She does not want to do that as she feels that she might get worse . The recent pain was in the elbows and that is worse if she lifts a weight. They are not red , hot and swollen and the pain is bad in the morning and worse later in the day. No history of malar rash, oral [...] details are: joint pain ROS: scanned in [facility] PMH: Past Medical History Diagnosis Date Fibromyalgia [...] C) 500 mg OR CHEW 1 day buprenorphine (BUTRANS) 5 mcg/hour transdermal patch weekly Apply 5 mcg to skin every s even days. Indications: Chronic Pain CALCIUM CARBONATE/VITAMIN D2 (CALCIUM + VITAMIN D ORAL) Take 1 tablet by mouth two time s daily. CHONDROITIN SULFATE A ORAL Take 1,250 mg by mouth two times daily. DULoxetine (CYMBALTA) [...] Take 25 mg by mouth once daily. hydroxychloroquine (PLAQUENIL) 200 mg Oral tablet Take 400 mg by mouth two times daily. Lysine 500 mg OR CAPS 1 tablet daily methotrexate 2.5 mg Oral tablet Take 15 [...] Stroke in her mother. Rapid 3 MHAQ: 3.3 (07/09/13 1200) PAIN LEVEL: 8 (07/09/13 1200) GLOBAL ASSESSMENT: 7 (07/09/13 1200) RAPID 3: 6.1 (07/09/131199) Exam: Vital Signs: BP 112/70 | Pulse 72 | Wt 89.359 kg (197 lb) | BMI 32.78 kg/(m^2) Pain S core: Gen: Well nourished, well developed, in NAD HEENT: PERRLA, EOMI, O/P clear, no facial rash or alopecia Neck: supple, no lymphadenopathy, FROM Lungs: clear to ausculation bilaterally CVS: S1S2, RRR, no murmurs, rubs or gallops Abd: normal BS, soft, NT, ND Ext: no clubbing, cyanosis or edema M/S: no synovitis; diffuse joint tenderness excluding the DIP in the hands, the elbows are not tender; full ROM throughout joints of upper and lower extremities Skin: no abnormalities Neuro: strength hard to assess Lab Results Component Value Date ESR 25 04/07/2013 Impression: This is a 73 y.o. female, here for evaluation of joint pain. She has history of fibromyalgia and joint pain. She has been receiving methotrexate and plaquenil for about a year and does not know if these are helping her. She is stiff for several hours in the morni ng and hurts in both small and large joints bilaterally. She does not have any synovitis or extra-articular features of RA. At this time she does not have features suggestive of inflam mation in the joints and I am not sure if this is from the use of methotrexate and plaquenil . I am repeating the labs today and will also check for the ESR. Despite the labs, I am not convinced that she has RA. The labs are fine, including ESR, and I think that we can lower t he dose of methotrexate to 10 mg once a week. Plan: I reviewed the patient s questionnaire which included more than 10 review of systems. I s pent 20 minutes [id number]-yv-lyay with the patient with over 50% in counseling the patient regard ing joint pain. Orders Placed This Encounter CBC, W/ DIFF Complete Metabolic Panel ESR (Sedimentation rate) CMP Q8 Weeks - External CBC Q8 Weeks - Exernal DISCONTD: buprenorphine (BUTRANS) 5 mcg/hour transdermal patch weekly buprenorphine (BUTRANS) 5 mcg/hour transdermal patch weekly Continue current medications. Review in 8 weeks. docum ented in this encounter Plan of Treatment Not on filedocumented as of this encounter Results SEDIMENTATION RATE (07/09/2013 12:10 PM PST) + +-------+ + + + [...] [facility] | [address] | [place] [address] | | | SERVICES, CORE | [address] | | | + + + + + COMPLETE METABOLIC SET (NA,K,CL,CO2,BUN,CREAT,GLUC,CA,AST,ALT,BILI TOTAL,ALK PHOS,ALB,PROT TOTAL) (07/09/2013 12:10 PM PST) + +---------+ + + + | Component | Value | Ref Range | Performed | Pathologist | | | | | At | Signature | + +---------+ + + + | GLUCOSE, | 90 | 60 - 99 mg/dL | [facility] [...] +---------+ + + + | CREATININE | 1.01 | 0.60 - 1.10 | [facility] | | | PLASMA | | mg/dL | LABORATORY | | | (LAB) | | | SERVICES, | | | | | | CORE | | + +---------+ + + + | EGFR | >60 | >60 mL/min | [facility] | | | - | | | LABORATORY | | | MACANESE | | | SERVICES, | | | | | | CORE | | + +---------+ + + + | EGFR NON | 54 (L) | >60 mL/min | [facility] | [...] +---------+ + + + | CHLORIDE, | 103 | 97 - 108 mmol/L | [facility] [...] +---------+ + + + | CALCIUM, | 9.5 | 8.6 - 10.2 | [facility] | [...] +---------+ + + + | TOTAL | 7.3 | 6.4 - 8.2 g/dL | [facility] | | | PROTEIN, | | | LABORATORY | | | PLASMA | | | SERVICES, | | | (LAB) | | | CORE | | + +---------+ + + + | ALBUMIN, | 4.2 | 3.5 - 4.7 g/dL | [facility] | | | PLASMA | | | LABORATORY | | | (LAB) | | | SERVICES, | | | | | | CORE | | + +---------+ + + + | ALK PHOS | 78 | 53 - 141 U/L | [facility] | | | | | | LABORATORY | | | | | | SERVICES, | | | | | | CORE | | + +---------+ + + + | AST(SGOT) | 23 | 15 - 41 U/L | [facility] | | | | | | LABORATORY | | | | | | SERVICES, | | | | | | CORE | | + +---------+ + + + | ALT (SGPT) | 23 | 12 - 60 U/L | [facility] [...] the MDRD equation recommended by the | [place] | | National Kidney Disease Education Program. [...] [facility] | [address] | [place] [address] | | | SERVICES, CORE | [address] | | | + + + + + documented in this encounter Visit Diagnoses + + | Diagnosis | + + | Rheumatoid arthritis(714.0) ([facility]) - Primary Rheumatoid arthritis | + + documented in this encounter"
--- OUTSIDE RECORDS SUMMARY | ~2019-05-17 | XMS | Encounter Summary ---
Demographics + + + | Address | [address] | | | [place] [address] | + + + | Home Phone [...] + | Author | [facility] | | | and Azana | + + + | Organization | [facility] | | | and Azana | + + + | Address | Unknown | + + + | Phone | Unavailable | + + + Support + + + + + | Name | Relationship | Address | Phone | + + + + + | Alon Santiago | KATERIN | [address] | | | | | [place], [place] | | | | | [address] | | + + + + + | Helena Doherty | ECON | [place], | | | | | [place] [address] | | + + + + + Care Team Providers + +------+ + | Care Gear Straightener Name | Role | Phone | + [...] | | | | [address], | [place] [address] | | | | | [place] [address] | [phone] | | | | | [phone] | | | +--------+ + + + [...] | | | | | | [place] [address] | | | | | | [phone] | | | | | | | | | | | | Skiing TeacherNaomi | | +--------+ + + + + documented as of this encounter Visit Diagnoses Not on filedocumented in this encounter"
--- OUTSIDE RECORDS SUMMARY | ~2019-05-17 | XMS | Encounter Summary ---
Demographics + + + | Address | [address] [facility] [facility] | | | [place] [address] | + + + | Home Phone [...] + | Author | [facility] | | | and Azana | + + + | Organization | [facility] | | | and [...] [place], [place] | | | | | [address] | | + + + + + | Helena Doherty | ECON | [place], | | | | | [place] [address] | | + + + + + Care Team Providers + +------+ + | Care Head Of Precision Targeting Name | Role | Phone | + +------+ + | Nathan Luevano DO | PCP | | + +------+ + Reason for Visit + + + | Reason | Comments | + + + | Therapy Discharge | | + + + Encounter Details +--------+ + + + + | Date | Type | Department | Care Team | Description | +--------+ + + + + | 02/06/ | Documentati | [facility] | Aiyana Fish, | Therapy Discharge | | 2017 | on | MED CTR THERAPY PT | PT [address] | | | | | OP [address] | [place] | | | | | [place] | [address] | | | | | [address] | | | | | | [phone] | | | +--------+ + + + [...] encounter Progress Notes Aiyana Fish, PT - 02/06/2017 9:13 AM PDTFormatting of this note might be different jhonatan m the original. [facility] PT OP [address] [place] [address] Physical Therapy Discharge Note This discharge is associated with the evaluation completed on 10/19/2016. Date: 02/06/2017 Patient Information Patient Name: Ashly Santiago Date of : 1940 Age: 77 y.o. Encounter Diagnoses Code Name Primary? M46.1 Sacroiliitis (HCC) M79.7 Fibromyalgia Date of Onset: 06/08/2016 Referring Provider: OBEY Kendrick Total Number of Visits Completed: 11 Total Cancellations: 0 Total No Shows: 1 Patient is scheduled for back surgery 02/13/2017. She will let us know if she has a need fo r therapy post -op. Discharge current episode of care. This note serves as discharge from [facility]. The last progress note or the patients initial evaluation will serve as objective status fo r purposes of discharge. Electronically signed by: Aiyana Fish PT, 02/06/2017 9:16 Patient Name: Ashly Santiago/: 1940/ y signed by Aiyana Fish PT at 02/06/2017 9:17 AM PDTdocumented in this encounter Plan of Treatment [...] | | | | | [place] [address] | | | | | | [phone] | | | | | | | | | | | | Marine Machinist, [place] | | +--------+ + + + + documented as of this encounter Visit Diagnoses + + | Diagnosis | + + | Sacroiliitis (HCC) Sacroiliitis, not elsewhere classified | + + | Fibromyalgia Mylagia and myositis, unspecified | + + documented in this encounter"
--- OUTSIDE RECORDS SUMMARY | ~2019-05-17 | XMS | Encounter Summary ---
Demographics + + + | Address | [address] | | | [place] [address] | + + + | Home Phone [...] Author | [facility] | | | and Azana | + + + | Organization | [facility] | | | and Azana [...] [place], [place] | | | | | [address] | | + + + + + | Helena Doherty | ECON | [place], | | | | | [place] [address] | | + + + + + Care Team Providers + +------+ + | Care Senior Qa Engineer Name | Role | Phone [...] | | | | | | | [place] | | | | | | | ARTHDSIS | | | | | | | POST/POSTERO | | | | | | | LATRL/POSTIN | | | | | | | TERBODY | | | | | | | LUMBAR NC | | | | | | | SPINE | | | | | | | FUSN,POST | | | | | | | TECH,EA | | | | | | | ADDNL SGMT | | | | | | | NC LUMBAR | | | | | | [...] | | | | | | SEG NC | | | | | | | LAMINEC/FACE | | | | | | | TECT/FORAMIN | | | | | | | ,EACH ADDNL | | | | | | | NC INSJ | | | | | | | BIOMCHN DEV | | | | | | | INTERVERTEBR | | | | | | | AL DSC SPC | | | | | | | W/ARTHRD NC | | | | | | | [...] + + | 02/13/ | Hospital | [facility] | Agusto Pereira MD | | | 2017 | Encounter | MED CTR OR INTRA OP | [address] | | | | | [address] | [place] [address] | | | | | [place], [place] | [phone] | | | | | [address] | | | | | | [phone] | | | +--------+ + + + [...] DAIANA | | | | | | [place] [address] | | | | | | [phone] | | | | | | | | | | | | Supervisor Order TakersNaomi | | +--------+ + + + + [...]
--- OUTSIDE RECORDS SUMMARY | ~2019-05-17 | XMS | Encounter Summary ---
Demographics + + + | Address | [address] | | | [place] [address] | + + + | Home Phone | | + + + | Preferred Language | Unknown | + + + | Marital Status | | + + + | Faith Affiliation | 1077 | + + + | Race | Unknown | + + + | Ethnic Group | Unknown | + + + Author + + + | Author | [facility] | | | and Azana | + + + | Organization | [facility] | | | and Azana [...] [place], [place] | | | | | [address] | | + + + + + | Helena Doherty | ECON | [place], | | | | | [place] [address] | | + + + + + Care Team Providers + +------+ + | Care Clinical Support Tech Name | Role | Phone | + +------+ + | Nathan Luevano DO | PCP | | + +------+ + Encounter Details +--------+ + + + + | Date | Type | Department | Care Team | Description | +--------+ + + + + | 11/01/ | Episode | [facility] [place] | [place], | | | 2017 | Changes | NEUROSURGERY [address] | [facility] | | | | | [address] | Ore Bridge Operator | | | | | [place], [place] | | | | | | [address] | | | | | | [phone] | | | +--------+ + + + [...] | | | | | [place] [address] | | | | | | [phone] | | | | | | | | | | | | Power Line InstallerNaomi | | +--------+ + + + + documented as of this encounter Visit Diagnoses Not on filedocumented in this encounter"
--- OUTSIDE RECORDS SUMMARY | ~2019-05-17 | XMS | Encounter Summary ---
Demographics + + + | Address | [address] | | | [place] [address] | + + + | Home Phone [...] | [facility] | | | and Azana | + + + | Organization | [facility] | | [...] [place], [place] | | | | | [address] | | + + + + + | Helena Doherty | ECON | [place], | | | | | [place] [address] | | + + + + + Care Team Providers + +------+ + | Care Customer Solutions Teammate Name | Role | Phone | + +------+ + | Thee Boss MD | PCP | | + +------+ + Reason for Visit + + + | Reason | Comments | + + + | Back Pain | Low back pain | + + + | Hip Pain | Bilateral hip pain, worse on the right than the left | + + + Encounter Details +--------+---------+ + + + | Date | Type | Department | Care Team | Description | +--------+---------+ + + + | 11/13/ | Office | [facility] | Osman Beth | Facet arthritis of | | 2012 | Visit | PHYSIATRY [address] | [address] | lumbar region | | | | [place], | [address] | (Primary Dx); | | | | [place] [address] | [id number] | DEGENERATIVE DISC | | | | [phone] | | DISEASE, LUMBAR | | | | | | SPINE; Sacroiliitis | | | | | | ([facility]); Fibromyalgia; | | | | | | Bursitis, hip | +--------+---------+ + + + Social History [...] + + + | Blood Pressure | 147/90 | 11/13/2012 9:48 AM | | | | | PDT | | + + + + + | Pulse | 79 | 11/13/2012 9:48 AM | | | | | PDT [...] Weight | 88.9 kg (196 lb) | 11/13/2012 9:48 AM | | | | | PDT | | + + + + + | Height | 165.1 cm (5' 5") | 11/13/2012 9:48 AM | | | | | PDT | | + + + + + | Body Mass Index | 32.62 | 11/13/2012 9:48 AM | | | | | PDT | | + + + + + documented in this encounter Patient Instructions Patient Instructions Catalina Paredes - 11/13/2012 10:24 AM PDTFollow-up at the hospital t hirty minutes before your scheduled procedure to allow [...] our off ice. Please also provide a dedicated regional driver to take you home on the day of the procedure. documented in this encounter Progress Notes Osman Beth MD - 11/13/2012 10:04 AM PDT Subjective: Patient ID: Ashly Santiago is a 72 y.o. female. Chief Complaint Patient presents with Back Pain Low back pain Hip Pain Bilateral hip pain, worse on the right than the left HPI The patient is being seen today in follow-up for complaints of low back pain that radia tamara into the buttocks. She also has complaints of bilateral hip pain which is worse on the r ight than the left. She has been seen by me in the past for these issues and was diagnosed w ith multilevel DDD, facet arthritis, sacroiliitis and trochanteric bursitis. Recent treatme nts including interventional procedures have not provided much relief. She describes her symptoms as aching. Her symptoms have been constant. Her symptoms worsen with walking, bending and twisting. Her symptoms improve with sitting and resting. She denie s numbness. She describes generalized weakness in the legs and knees especially when going u p stairs. She denies bowel and bladder dysfunction other than some stress urinary incontinence for wh ich she has had bladder surgery. She also denies saddle anesthesia. Treatments for these complaints have included prior injections and PT along with the use of Cymbalta. Prior injections have included a a right SI joint injection along with a right trochanteric bursa injection which was performed by me most recently on 09/04/2012. She also had a previo us bilateral L4-L5 epidural steroid injection.She indicates no relief from either one of the se injections. MRI lumbar spine was reviewed today in detail with the patient. Current Outpatient Prescriptions Medication Sig Dispense Refill DULoxetine (CYMBALTA) 20 mg capsule Take 40 mg by mouth Daily. calcium-vitamin D (CALCIUM + D) 600 mg-200 units per tablet Take 1 tablet by mouth 2 ti mes daily. CHONDROITIN SULFATE Take 1,250 mg by mouth 2 times daily. Melatonin 1 MG TABS Take 5 mg by mouth nightly. omeprazole (PRILOSEC) 10 mg capsule Take 20 mg by mouth every morning (before breakfast ). methotrexate 2.5 mg tablet Take 7.5 mg by mouth Once a week. hydroxychloroquine (PLAQUENIL) 200 mg tablet Take 200 mg by mouth 2 times daily. hydrochlorothiazide 25 mg tablet Take 25 mg by mouth Daily. L-Lysine HCl 500 MG CAPS Cholecalciferol (VITAMIN D) 1000 UNITS CAPS solifenacin (VESICARE) 10 MG tablet valsartan (DIOVAN) 40 mg tablet Take 40 mg by mouth Daily. Calcium Carbonate-Vitamin D (CALCIUM + D PO) TABS Glucosamine Sulfate 1000 MG CAPS Chondroitin Sulfate 250 MG CAPS estradiol (ESTRACE VAGINAL) 0.1 mg/g vaginal cream Patient's medications, allergies, past medical, surgical, social and family histories were reviewed and updated as appropriate. MRI of the lumbar spine was reviewed today in detail with the patient. Review of Systems No complaints other than [...] tenderness to palpation ove r the greater trochanters, mostly on the right side along with mild tenderness over both sac ral sulci. The patient localized the majority of the pain to the L4-L5 region. Lumbar face t loading was positive. Strength testing showed 5/5 strength throughout the lower extremiti es. The patient was able to heel and toe walk without difficulty. There was no redness, ef fusion or warmth in the knees. She did have joint line tenderness in the knees. Assessment: 1. 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 DEGENERATIVE DISC DISEASE, LUMBAR SPINE 3. Sacroiliitis 4. Fibromyalgia 5. Bursitis, hip Plan: 1. We discussed her medications and I did offer to give her a new prescription of Lyricia or we could consider getting her back on the Celebrex which she was taking previously. She wishes to discuss these options with her other physicians. 2. I did also discuss with her that there are multiple potential pain generators including fibromyalgia which makes it difficult to isolate focal pain generators. At present it appea rs that the pain is mostly coming from the lumbar facet joints at L4-L5. I offered facet in jections at L4-L5 bilaterally. If she does not get relief with these injections I don't thi nk I would offer any additional injections as it would seem negative side effects would outw eigh any potential benefit. 3. The patient has had PT in the past. I would encourage a home exercise program and weig ht loss as able. documented in this encounter Plan of Treatment +--------+ + + + + | Date | Type | Specialty | Care Team | Description | +--------+ + + + + | 05/19/ | Hospital | Radiology | Dennys Pineda PA-C | | | 2019 | Encounter | | [address] | | | | | | [place] | | | | | | [place] [address] | | | | | | [phone] | | | | | | | | | | | | Research Manufacturing Operator, [facility] | | +--------+ + + + + documented as of this encounter Visit Diagnoses + + | Diagnosis | + + | Facet arthritis of lumbar region - Primary Lumbosacral spondylosis without myelopathy | + + | DEGENERATIVE DISC DISEASE, LUMBAR SPINE Degeneration of lumbar or lumbosacral | | intervertebral disc | + + | Sacroiliitis (HCC) Sacroiliitis, not elsewhere classified | + + | Fibromyalgia Mylagia and myositis, unspecified | + + | Bursitis, hip Enthesopathy of hip region | + + documented in this encounter
--- OUTSIDE RECORDS SUMMARY | ~2019-05-17 | XMS | Encounter Summary ---
Demographics + + + | Address | [address] | | | [place] [address] | + + + | Home Phone | | + + + | Preferred Language | Unknown | + + + | Marital Status | | + + + | Jew Affiliation | 1077 | + + + | Race | Unknown | + + + | Ethnic Group | Unknown | + + + Author + + + | Author | [facility] | | | and Azana | + + + | Organization | [facility] | | | and Azana | [...] [place], [place] | | | | | [address] | | + + + + + | Helena Doherty | ECON | [place], | | | | | [place] [address] | | + + + + + Care Team Providers + +------+ + | Care Parts Sales Manager Name | Role | Phone | + +------+ + | Nathan Luevano DO | PCP | | + +------+ + Reason for Visit + + + | Reason | Comments | + + + | Medication Question | | + + + | Foot Pain | | + + + Encounter Details +--------+ + + + + | Date | Type | Department | Care Team | Description | +--------+ + + + + | 05/29/ | Telephone | [facility] | Agusto Pereira MD | Medication Question; | | 2017 | | NEUROSURGERY [address] | [address] | Foot Pain | | | | [address] | [place] [address] | | | | | [place] | [phone] | | | | | [address] | | | | | | [phone] | | | +--------+ + + + [...] | | | | | [place] [address] | | | | | | [phone] | | | | | | | | | | | | Document Clerk, [facility] | | +--------+ + + + + documented as of this encounter Visit Diagnoses Not on filedocumented in this encounter"
--- OUTSIDE RECORDS SUMMARY | ~2019-05-17 | XMS | Encounter Summary ---
Demographics + + + | Address | [address] | | | [place] [address] | + + + | Home Phone [...] Author | [facility] | | | and Azana | + + + | Organization | [facility] | | | and [...] [place], [place] | | | | | [address] | | + + + + + | Helena Doherty | ECON | [place], | | | | | [place] [address] | | + + + + + Care Team Providers + +------+ + | Care Talent Coordinator Name | Role | Phone | [...] [address] | radiculopathy | | | | [place], | [address] [place] | (Primary Dx); | | | | [place] [address] | [place] [address] | Osteoarthritis of | | | | [phone] | [phone] | cervical spine, | | | | [...] | | | | | [place] [address] | | | | | | [phone] | | | | | | | | | | | | Soiled Linen Distributor, [facility] | | +--------+ + + + + documented as of this encounter Visit Diagnoses + + | Diagnosis | + + | Cervical radiculopathy - Primary Brachial neuritis or radiculitis nos | + + | Osteoarthritis of cervical spine, unspecified spinal osteoarthritis complication | | status | + + documented in this encounter"
--- OUTSIDE RECORDS SUMMARY | ~2019-05-17 | XMS | Encounter Summary ---
Demographics + + + | Address | [address] | | | [place] [address] | + + + | Home Phone | | + + + | Preferred Language | Unknown | + + + | Marital Status | | + + + | Restorationism Affiliation | Unknown | + + + | Race | White | + + + | Ethnic Group | Not or | + + + Author + + + | Author | [facility] | + + + | Organization | [facility] | + + + | Address | Unknown | + + + | Phone | Unavailable | + + + Support + + +---------+ + | Name | Relationship | Address | Phone | + + +---------+ + | Alon Santiago | ECON | Unknown | | + + +---------+ + Care Team Providers + +------+ + | Care Executive Wellness Programs Director Name | Role | Phone | + +------+ + | Nathan Luevano | PCP | | + +------+ + Reason for Visit +--------+ + | Reason | Comments | +--------+ + | Other | Kemi Rae | +--------+ + Encounter Details +--------+ + + + + | Date | Type | Department | Care Team | Description | +--------+ + + + + | 10/22/ | Telephone | [facility] | Ness Rae | Other (Butch, | | 2006 | | [facility] | MD Kemi [address] | Sae | | | | [address] | [address] | | | | | [address] | [facility] [place] | | | | | [place] | [address] | | | | | [place], [place] | [phone] | | | | | [address] | | | | | | [phone] | | | +--------+ + + + [...]
--- OUTSIDE RECORDS SUMMARY | ~2019-05-17 | XMS | Encounter Summary ---
Demographics + + + | Address | [address] | | | [place] [address] | + + + | Home Phone [...] Team Providers + +------+ + | Care Linen Controller Name | Role | Phone | + +------+ + | Thee Boss MD | PCP | | + +------+ + Encounter Details +--------+------+ + + + | Date | Type | Department | Care Team | Description | +--------+------+ + + + | 09/01/ | Lab | Laboratory, | | Opiate use | | 2013 | | Specimen Collection | | | | | | at [address] Floor | | | | | | [address] | | | | | | [place], | | | | | | [place] [address] | | | | | | [phone] | | | +--------+------+ + + + [...] DRUG SCR UR, CHRONIC | Routin | 09/01/2013 | Opiate use | Results for this | | PAIN; W/ CONFIRM | e | 2:29 PM | | procedure are in the [...] | + + + + + | [facility] | [address] | [place] [address] | | | SERVICES, CORE | [address] | | | + + + + + documented in this encounter Visit Diagnoses + + | Diagnosis | + + | Opiate use Opioid abuse, unspecified | + + documented in this encounter"
--- OUTSIDE RECORDS SUMMARY | ~2019-05-17 | XMS | Encounter Summary ---
Demographics + + + | Address | [address] [facility] | | | [place] [address] | + + + | Home Phone [...] + | Author | [facility] | | | and Azana | + + + | Organization | [facility] | | [...] [place], [place] | | | | | [address] | | + + + + + | Helena Doherty | ECON | [place], | | | | | [place] [address] | | + + + + + Care Team Providers + +------+ + | Care Fixed Income Director Name | Role | Phone | + +------+ + | Nathan Luevano DO | PCP | | + +------+ + Encounter Details +--------+ + + + + | Date | Type | Department | Care Team | Description | +--------+ + + + + | 02/07/ | Hospital | [facility] | Agusto Pereira MD | | | 2017 | Encounter | MED CTR XRAY [address] | [address] | | | | | [place] | [place] [address] | | | | | [place] [address] | [phone] | | | | | [phone] | | | | | | | Eveline Maharaj, | | | | | | [address] [place] | | | | | | [place], [place] | | | | | | [address] [...] [place] | | | | | | [place] [address] | | | | | | [phone] | | | | | | | | | | | | Aerospace Medicine PhysicianNaomi | | +--------+ + + + + documented as of this encounter Procedures + +--------+ + + + | Procedure Name | Priori | Date/Time | Associated Diagnosis | Comments | | | ty | | | | + +--------+ + + + | XR CHEST 2 VIEWS | Routin | 02/07/2017 | Lumbar | Results for this | | | e | 1:46 PM | radiculopathy Facet | procedure are in the | | | | PDT | arthritis of lumbar | results section. | | | | | region (HCC) Low | | | | | | back pain, | | | | | | unspecified back | | | | | | pain laterality, | | | | | | unspecified | | | | | | chronicity, with | | | | | | sciatica presence | | | | | | unspecified | | | | | | Sacroiliitis (HCC) | | | | | | Lumbar foraminal | | | | | | stenosis Scoliosis | | | | | | of lumbar spine, | | | | | | unspecified | | | | | | scoliosis type | | + +--------+ + + + documented in this encounter Results XR Chest 2 VW [...] | + + + + + | [facility] | [address] | [place] | [phone] | | [facility] | | [address] | | | - IMAGING | | | | + + + + + documented in this encounter Visit Diagnoses Not on filedocumented in this encounter"
--- OUTSIDE RECORDS SUMMARY | ~2019-05-17 | XMS | Encounter Summary ---
Demographics + + + | Address | [address] | | | [place] [address] | + + + | Home Phone [...] Team Providers + +------+ + | Care Aqua Ammonia Operator Name | Role | Phone | [...] [address] | | | | | | [place], [place] | | | | | | [address] | | | +--------+ + + + [...]
--- OUTSIDE RECORDS SUMMARY | ~2019-05-17 | XMS | Encounter Summary ---
Demographics + + + | Address | [address] [facility] | | | [place] [address] | + + + | Home Phone | | + + + | Preferred Language | Unknown | + + + | Marital Status | | + + + | Moravian Affiliation | 1077 | + + + | Race | Unknown | + + + | Ethnic Group | Unknown | + + + Author + + + | Author | [facility] | | | and [place] | + + + | Organization | [facility] | | [...] [place], [place] | | | | | [address] | | + + + + + | Helena Doherty | ECON | [place], | | | | | [place] [address] | | + + + + + Care Team Providers + +------+ + | Care Emergency Room Specialist Name | Role | Phone | + +------+ + | Nathan Luevano DO | PCP | | + +------+ + Reason for Visit + + + | Reason | Comments | + + + | Procedure | trigger point injections | + + + Service/Procedure (Routine) +--------+--------+ [...] [address] | | | | n | [place] INJECT | [address] | [address] | | | | | TRIGGER | [address] | [place], | | | | | POINT, [address] | [place], | [place] [address] | | | | | [place] | [place] [address] | Phone: | | | | | OFFICE | Phone: | [phone] | | | | | OUTPATIENT | [phone] | Fax: | | | | | VISIT 15 | Fax: | [phone] | | | | | [place] | [phone] | | | | | | LIDOCAINE [...] | +--------+ + + + + | 04/04/ | Procedure | [facility] [place] | Andrew Miranda, | Trigger point of | | 2017 | visit | PHYSIATRY [address] | PA-C [address] | neck | | | | [place], | [address] [place] | | | | | [place] [address] | [place] [address] | | | | | [phone] | [phone] | | | | | | | [...] + + + | Blood Pressure | 157/83 | 04/04/2018 2:35 PM | | | | | PDT | | + + + + + | Pulse | 79 | 04/04/2018 2:35 PM | | | | | PDT [...] Weight | 87.1 kg (192 lb) | 04/04/2018 2:35 PM | | | | | PDT | | + + + + + | Height | 167.6 cm (5' 6") | 04/04/2018 2:35 PM | | | | | PDT | | + + + + + | Body Mass Index | 30.99 | 04/04/2018 2:35 PM | | | | | PDT | | + + + + + documented in this encounter Patient Instructions Patient Instructions Andrew Miranda PA-C - 04/04/2018 2:40 PM PDTFormatting of this note m ight be different from the original. - Ice the area as needed 20 minutes per hour. Multiple times as needed over the next few d ays. - Watch for signs of infection (redness around injection site, swelling, fever) - No strenuous activity for 24-48 hours after the procedure. - Please call the office with questions or concerns. Trigger Point Injection The cause of your [...] puncture (pneumothorax) Nerve damage Date Last Reviewed: 09/23/201719999981-0720 [employer]. [address] [place] [address], [place] [id number]. All righ ts reserved. This information is not intended as a substitute for professional medical care. Always follow your healthcare professional's instructions. documented in this encounter Progress Notes Andrew Miranda PA-C - 04/04/2018 2:40 PM PDTFormatting of this note might be different fro m the original. CC: Neck and upper back pain Encounter Diagnosis Name Primary? Trigger point of neck HPI: Ashly Santiago is a 78 y.o. female who is being seen today in followup for contin ued neck pain and upper back/posterior shoulder pain. Patient is interested in receiving tr igger point injections today and I did feel that was appropriate. Since the patient was last seen she continues to complain of bilateral neck tightness and p ain. Description of procedure: After the patient gave consent for the procedure the trigger poin t injections were performed using sterile no-touch technique and a 25 gauge 1.5 inch needle. The areas were prepped with Betadine and alcohol and the areas were sprayed with a vapocool ant spray. The needle was then advanced into 8 different trigger points. A total of 8 mL of 1% lidocaine and 2 mL of Depomedrol 20mg/mL was injected divided between the 8 sites. The p atient was instructed to ice the areas and to watch for signs of infection. Patient will follow-up with as needed. 2 injections to trapezius, 1 injection to levator scapula, one injection to superior rhombo id. (same pattern bilaterally) ELECTRONICALLY SIGNED BY: Andrew Miranda PA-C, 04/04/18 documented in this en counter Plan of [...] | | | | | | [place] [address] | | | | | | [phone] | | | | | | | | | | | | [place] | | +--------+ + + + + documented as of this encounter Procedures + +--------+ + + + | Procedure Name | Priori | Date/Time | Associated Diagnosis | Comments | | | ty | | | | + +--------+ + + + | IMAGING REPORT - | | 05/01/2018 | | Results for this | | EXTERNAL SCAN | | 12:00 AM | | procedure are in the | | | | PST | | results section. | + +--------+ + + + documented in this encounter Results IMAGING REPORT - EXTERNAL SCAN (05/01/2018 12:00 AM PST) + + + | Narrative | Performed At | + + + | Ordered by an | | | unspecified provider. | | + + + documented in this encounter Visit Diagnoses + + | Diagnosis | + + | Trigger point of neck Cervicalgia | + + documented in this encounter Administered Medications + +--------+ +-------+------+-------+ | Medication Order | MAR | Action | Dose | Rate | Site | | | Action | Date | | | | + +--------+ +-------+------+-------+ | lidocaine 1% injection 8 mL 8 | Given | 04/04/20 | 8 mLs | | Joint | | mL, Intramuscular, ONCE, Agustina | | 18 2:54 | | | | | 04/04/18 at 1500, For 1 dose | | PM PDT | | | | + +--------+ +-------+------+-------+ +---+---+ | | | +---+---+ + +-------+ +-------+---+-------+ | methylPREDNISolone acetate | Given | 04/04/20 | 40 mg | | Joint | | (DEPO-MEDROL) 20 mg/mL injection | | 18 2:54 | | | | | 40 mg 40 mg, Intramuscular, | | PM PDT | | | | | ONCE, Agustina 04/04/18 at 1500, For 1 | | | | | | | dose, Not for IV use., | | | | | | + +-------+ +-------+---+-------+ +---+---+ | | | +---+---+ documented in this encounter
--- OUTSIDE RECORDS SUMMARY | ~2019-05-17 | XMS | Encounter Summary ---
Demographics + + + | Address | [address] [facility] [facility] | | | [place] [address] | + + + | Home Phone | | + + + | Preferred Language | Unknown | + + + | Marital Status | | + + + | Orthodoxy Affiliation | 1077 | + + + | Race | Unknown | + + + | Ethnic Group | Unknown | + + + Author + + + | Author | [facility] | | | and [place] | + + + | Organization | [facility] | | | and Azana [...] [place], [place] | | | | | [address] | | + + + + + | Helena Doherty | ECON | [place], | | | | | [place] [address] | | + + + + + Care Team Providers + +------+ + | Care Construction Secretary Name | Role | Phone | + [...] + | 08/05/ | Telephone | [facility] | Osman Beth | Other | | 2012 | | PHYSIATRY [address] | [address], [address] | | | | | [place], | [place] | | | | | [place] [address] | [address] | | | | | [phone] | | | +--------+ + + + [...] | | | | | | [address] [place] | | | | | | [place] [address] | | | | | | [phone] | | | | | | | | | | | | Mail Forwarding System Markup Clerk, [facility] | | +--------+ + + + + documented as of this encounter Visit Diagnoses Not on filedocumented in this encounter"
--- OUTSIDE RECORDS SUMMARY | ~2019-05-17 | XMS | Encounter Summary ---
Demographics + + + | Address | [address] [facility] | | | [place] [address] | + + + | Home Phone | | + + + | Preferred Language | Unknown | + + + | Marital Status | | + + + | Taoism Affiliation | 1077 | + + + | Race | Unknown | + + + | Ethnic Group | Unknown | + + + Author + + + | Author | [facility] | | | and Azana | + + + | Organization | [facility] | | [...] [place], [place] | | | | | [address] | | + + + + + | Helena Doherty | ECON | [place], | | | | | [place] [address] | | + + + + + Care Team Providers + +------+ + | Care Hemodialysis Lab Technician Name | Role | Phone | [...] Aden. [address] | | | | | [phone] | [place] [address] | | +--------+ + + + + [...] | | | | | [place] [address] | | | | | | [phone] | | | | | | | | | | | | Senior Systems Programmer, [facility] | | +--------+ + + + + documented as of this encounter Procedures + +--------+ + + + | Procedure Name | Priori | Date/Time | Associated Diagnosis | Comments | | | ty | | | | + +--------+ + + + | MRI CERVICAL SPINE | Routin | 05/01/2018 | | Results for this | | WO CONTRAST | e | 2:10 PM | | procedure are in the | | | | PST | | results section. | + +--------+ + + + documented in this encounter Results MRI Cervical Spine wo Contrast (05/01/2018 2:10 PM PST) + + | Specimen | [...]
--- OUTSIDE RECORDS SUMMARY | ~2019-05-17 | XMS | Encounter Summary ---
Demographics + + + | Address | [address] [facility] | | | [place] [address] | + + + | Home Phone [...] | [facility] | | | and Azana | + + + | Organization | [facility] | | [...] [place], [place] | | | | | [address] | | + + + + + | Helena Doherty | ECON | [place], | | | | | [place] [address] | | + + + + + Care Team Providers + +------+ + | Care Bariatric Nurse Name | Role | Phone | + [...] 2016 | | GASTROENTEROLOGY | [address], [place] | | | | | [address] [place] | [address] [place], [place] | | | | | [address] [place], [place] | [address] | | | | | [address] | | | | | | [phone] | | | +--------+ + + + [...] | | | | | [place] [address] | | | | | | [phone] | | | | | | | | | | | | Shoe Laster, [facility] | | +--------+ + + + + documented as of this encounter Visit Diagnoses Not on filedocumented in this encounter"
--- OUTSIDE RECORDS SUMMARY | ~2019-05-17 | XMS | Encounter Summary ---
Demographics + + + | Address | [address] [facility] | | | [place] [address] | + + + | Home Phone [...] Author | [facility] | | | and Azana | + + + | Organization | [facility] | | | and [...] [place], [place] | | | | | [address] | | + + + + + | Helena Doherty | ECON | [place], | | | | | [place] [address] | | + + + + + Care Team Providers + +------+ + | Care Data Security Analyst Name | Role | Phone | [...] + + | 01/30/ | Telephone | [facility] | Andrew Miranda, | Medication Question | | 2017 | | PHYSIATRY [address] | PA-C [address] | | | | | [place], | [address] [place] | | | | | [place] [address] | [place] [address] | | | | | [phone] | [phone] | | | | | | | [...] | | | | | | [place] [address] | | | | | | [phone] | | | | | | | | | | | | Margarine Maker, [facility] | | +--------+ + + + + documented as of this encounter Visit Diagnoses Not on filedocumented in this encounter"
--- OUTSIDE RECORDS SUMMARY | ~2019-05-17 | XMS | Encounter Summary ---
Demographics + + + | Address | [address] [facility] | | | [place] [address] | + + + | Home Phone | | + + + | Preferred Language | Unknown | + + + | Marital Status | | + + + | Faith Affiliation | 1077 | + + + | Race | Unknown | + + + | Ethnic Group | Unknown | + + + Author + + + | Author | [facility] | | | and Azana | + + + | Organization | [facility] [...] [place], [place] | | | | | [address] | | + + + + + | Helena Doherty | ECON | [place], | | | | | [place] [address] | | + + + + + Care Team Providers + +------+ + | Care Movie Writer Name | Role | Phone | [...] [place], | | | | | [place], [place] | [place] [address] | | | | | [address] | [phone] | | | | | [phone] | | | +--------+ + + + [...] | | | | | [place] [address] | | | | | | [phone] | | | | | | | | | | | | Soap WorkerNaomi | | +--------+ + + + + documented as of this encounter Visit Diagnoses Not on filedocumented in this encounter"
--- OUTSIDE RECORDS SUMMARY | ~2019-05-17 | XMS | Encounter Summary ---
Demographics + + + | Address | [address] [facility] | | | [place] [address] | + + + | Home Phone | | + + + | Preferred Language | Unknown | + + + | Marital Status | | + + + | Zoroastrianism Affiliation | 1077 | + + + | Race | Unknown | + + + | Ethnic Group | Unknown | + + + Author + + + | Author | [facility] | | | and Azana | + + + | Organization | [facility] | [...] [place], [place] | | | | | [address] | | + + + + + | Helena Doherty | ECON | [place], | | | | | [place] [address] | | + + + + + Care Team Providers + +------+ + | Care Lpn Rn Name | Role | Phone | + [...] | | [address] | [place] [address] | arthritis of lumbar | | | | [place], [place] | [phone] | region (HCC); Low | | | | [address] | | back pain, | | | | [phone] | | unspecified back | | | | | | pain laterality, | | | | | | unspecified | | | | | | chronicity, with | | | | | | sciatica presence | | | | | | unspecified; | | | | | | Sacroiliitis ([facility]); | | | [...] | | | | | | [place] [address] | | | | | | [phone] | | | | | | | | | | | | Disbursement ClerkNaomi | | +--------+ + + + [...] | + + + + + | [facility] | [address] | [place] | [phone] | | [facility] | | [address] | | | - IMAGING | | [...] [address] | [place] | [phone] | | [facility] | | [address] | | | - LABORATORY | | [...] | 0.96 | 0.60 - 1.30 | [facility] | | | | | mg/dL | [facility] | [facility] | | | | | | [facility] - | | | | | | LABORATORY | | + + + + + + | eGFR if not | 56 (L)Comment: | >=60 | [facility] | | | | GLOMERULAR FILTRATION | mL/min/1.73m2 | Vick [facility] | | | [place] | RATE,ESTIMATED | | MEDICAL | | | | mL/min/1.50b7Zmxa than | | CENTER - | | [...] + | [facility] [address] | [address] | [place] | [phone] | | [facility] | | [address] | | | - LABORATORY | | [...] LEISA | | | | | | ([id number]) on 02/07/2017 | | | | | [...]
--- OUTSIDE RECORDS SUMMARY | ~2019-05-17 | XMS | Encounter Summary ---
Demographics + + + | Address | [address] [facility] | | | [place] [address] | + + + | Home Phone [...] + | Author | [facility] | | | and Azana | + + + | Organization | [facility] | | | [...] [place], [place] | | | | | [address] | | + + + + + | Helena Doherty | ECON | [place], | | | | | [place] [address] | | + + + + + Care Team Providers + +------+ + | Care Architectural Inspector Name | Role | Phone | [...] + + | 12/10/ | Telephone | [facility] | Dimitri Lucas | Referral | | 2019 | | LIL[address] | MD Abbi [address] | (PreAuthorization) | | | | [address] | [address] [facility] | | | | | [place] | [place] [address] | | | | | [address] | [phone] | | | | | [phone] | | | +--------+ + + + [...] 2019 | Encounter | | [address] [facility] | | | | | | [address] [place] | | | | | | [place] [address] | | | | | | [phone] | | | | | | | | | | | | Detailer School Photographs, [facility] | | +--------+ + + + + documented as of this encounter Visit Diagnoses Not on filedocumented in this encounter"
--- OUTSIDE RECORDS SUMMARY | ~2019-05-17 | XMS | Encounter Summary ---
Demographics + + + | Address | [address] [facility] | | | [place] [address] | + + + | Home Phone [...] | Author | [facility] | | | and Azana | + + + | Organization | [facility] | | | and Azana [...] [place], [place] | | | | | [address] | | + + + + + | Helena Doherty | ECON | [place], | | | | | [place] [address] | | + + + + + Care Team Providers + +------+ + | Care Glass Artist Name | Role | Phone | + [...] left hip | [address] | [place] | | | | | Trochanteric | Ave | [address] Phone: | | | | | bursitis, | [place], | [phone] | | | | | right hip | [place] | Fax: | | | | | Fibromyalgia | [address] | [phone] | | | | | Procedures | Phone: | | | | | | PT Noel w/ | [phone] | | | | | | Aiyana | Fax: | | | | | | [place] | [phone] | | +--------+--------+ + + + + Encounter Details +--------+---------+ + + + | Date | Type | Department | Care Team | Description | +--------+---------+ + + + | 06/19/ | Office | [facility] | Schmidtgall, | Trochanteric | | 2018 | Visit | MED CTR THERAPY PT | Sophia Kingsley PA-C | bursitis of both | | | | OP [address] | [address] | hips (Primary Dx); | | | | [place] | [place], [place] | Neck pain; | | | | [address] | [address] | Fibromyalgia | | | | [phone] | [phone] | | | | | | | | | | | | Aiyana Fish S, PT | | | | | | [address] | | | | | | [place] | | | | | | [address] | | | | | | | [...] documented as of this encounter Progress Notes Aiyaan Fish, PT - 06/19/2018 1:00 PM PSTFormatting of this note might be different fro m the original. [facility] CTR THERAPY PT OP [address] [place] [address] Physical Therapy Daily Treatment Note Date: 06/19/2018 Patient Information Patient Name: Ashly Santiago Date of : 1940 Age: 78 y.o. Encounter Diagnoses Code Name Primary? M70.61, M70.62 Trochanteric bursitis of both hips Yes M54.2 Neck pain M79.7 Fibromyalgia Date of Onset: 04/10/2018 Referring Provider: Sophia Bush PA-C Rehab Precautions Office Visit from 04/17/2018 in [facility] CTR THERAPY PT OP Rehab Precautions Precautions None Rehab Learning Style Office Visit from 04/17/2018 in [facility] CTR THERAPY PT OP Office Visit fro m 10/19/2016 in [facility] CTR THERAPY PT OP Learning Style [...] | | | | | | [place] [address] | | | | | | [phone] | | | | | | | | | | | | Gasket NotcherNaomi | | +--------+ + + + + documented as of this encounter Visit Diagnoses + + | Diagnosis | + + | Trochanteric bursitis of both hips - Primary Enthesopathy of hip region | + + | Neck pain Cervicalgia | + + | Fibromyalgia Mylagia and myositis, unspecified | + + documented in this encounter
--- OUTSIDE RECORDS SUMMARY | ~2019-05-17 | XMS | Encounter Summary ---
Demographics + + + | Address | [address] [facility] | | | [place] [address] | + + + | Home Phone | | + + + | Preferred Language | Unknown | + + + | Marital Status | | + + + | Mandaeism Affiliation | Unknown | + + + | Race | White | + + + | Ethnic Group | Not or | + + + Author + + + | Author | [facility] | + + + | Organization | [facility] | + + + | Address [...] | | | | | | Amara Chatamn Mailcode: | | | | | | [address]ician[address] | | | | | | [place], | | | | | | [place] [address] | | | | | | [phone] | | | +--------+ + + + [...] | | + +---------+ + + | [facility] DEPARTMENT OF | | | | | RADIOLOGY | | | | + +---------+ + + documented in this encounter Visit Diagnoses + + | Diagnosis | + + | Rheumatoid arthritis (HCC) | + + documented in this encounter"
--- OUTSIDE RECORDS SUMMARY | ~2019-05-17 | XMS | Encounter Summary ---
Demographics + + + | Address | [address] [facility] | | | [place] [address] | + + + | Home Phone | | + + + | Preferred Language | Unknown | + + + | Marital Status | | + + + | Episcopal Affiliation | Unknown | + + + | Race | White | + + + | Ethnic Group | Not or | + + + Author + + + | Author | [facility] | + + + | Organization | [facility] | + + + | Address | Unknown | + + + | Phone | Unavailable | + + + Support + + +---------+ + | Name | Relationship | Address | Phone | + + +---------+ + | Alon Santiago | ECON | Unknown | | + + +---------+ + Care Team Providers + +------+ + | Care Hand Dry Cleaner Name | Role | Phone | + +------+ + | Thee Boss MD | PCP | | + +------+ + Encounter Details +--------+ + + + + | Date | Type | Department | Care Team | Description | +--------+ + + + + | 07/10/ | MyChart | Rheumatology at | Rosas Lucia MD | RE:Labs | | 2013 | Encounter | [address] | [address] [facility] | | | | | [address] | [address] [place], | | | | | Am[place] Mailcode: | [place] [address] | | | | | [address] Physician's | [phone] | | | | | [place], 4th Floor | | | | | | [place], [place] | | | | | | [address] | | | | | | [phone] | | | +--------+ + + + [...]
--- OUTSIDE RECORDS SUMMARY | ~2019-05-17 | XMS | Encounter Summary ---
Demographics + + + | Address | [address] [facility] | | | [place] [address] | + + + | Home Phone | | + + + | Preferred Language | Unknown | + + + | Marital Status | | + + + | Yarsanism Affiliation | 1077 | + + + | Race | Unknown | + + + | Ethnic Group | Unknown | + + + Author + + + | Author | [facility] | | | and Azana | + + + | Organization | [facility] | [...] [place], [place] | | | | | [address] | | + + + + + | Helena Doherty | ECON | [place], | | | | | [place] [address] | | + + + + + Care Team Providers + +------+ + | Care Child Care Provider Name | Role | Phone | + +------+ + | Nathan Luevano DO | PCP | | + +------+ + Reason for Visit + + + | Reason | Comments | + + + | Surgery Appointment | Check in Instructions | + + + Encounter Details +--------+ + + + + | Date | Type | Department | Care Team | Description | +--------+ + + + + | 02/09/ | Telephone | [facility] | Agusto Pereira MD | Surgery Appointment | | 2017 | | NEUROSURGERY [address] | [address] | (Check in | | | | [address] | [place] [address] | Instructions) | | | | [place] | [phone] | | | | | [address] | | | | | | [phone] | | | +--------+ + + + [...] [place] | | | | | | [place] [address] | | | | | | [phone] | | | | | | | | | | | | Raw Mill Operator, [facility] | | +--------+ + + + + documented as of this encounter Visit Diagnoses Not on filedocumented in this encounter"
--- OUTSIDE RECORDS SUMMARY | ~2019-05-17 | XMS | Encounter Summary ---
Demographics + + + | Address | [address] [facility] | | | [place] [address] | + + + | Home Phone [...] + +------+ + | Care Director Of Music Name | Role | Phone | + [...] Rd | | | | | | [place], [place] | | | | | | [address] | | | +--------+ + + + [...]
--- OUTSIDE RECORDS SUMMARY | ~2019-05-17 | XMS | Encounter Summary ---
Demographics + + + | Address | [address] [facility] | | | [place] [address] | + + + | Home Phone | | + + + | Preferred Language | Unknown | + + + | Marital Status | | + + + | Holiness Affiliation | 1077 | + + + | Race | Unknown | + + + | Ethnic Group | Unknown | + + + Author + + + | Author | [facility] | | | and Azana | + + + | Organization | [facility] | [...] [place], [place] | | | | | [address] | | + + + + + | Helena Doherty | ECON | [place], | | | | | [place] [address] | | + + + + + Care Team Providers + +------+ + | Care Health Tech Name | Role | Phone | [...] | | | bursitis, | Ave | [address] Phone: | | | | | left hip | [place], | [phone] | | | | | M70.61 | [place] | Fax: | | | | | (ICD-10-CM) | [address] | [phone] | | | | | - | Phone: | | | | | | Trochanteric | [phone] | | | | | | bursitis, | Fax: | | | | | | right hip | [phone] | | | | | | M79.7 [...] + | 09/11/ | Office | [facility] | Aiyana Fish, | Fibromyalgia | | 2019 | Visit | [facility] | PT [address] | (Primary Dx); Neck | | | | [address] | [place] | pain; Trochanteric | | | | [place] | [address] | bursitis of both | | | | [address] | | hips | | | | [phone] | | | +--------+---------+ + + + [...] be different fro m the original. [facility] THERAPY [address] [place] [address] Physical Therapy Daily Treatment Note Date: 09/11/2018 [...] taxes and also her daughter lives in [facility] and so she was worried about her [...] | | | | | [address] [facility] | | | | | | [place] [address] | | | | | | [phone] | | | | | | | | | | | | Labor ConciliatorNaomi | | +--------+ + + + + documented as of this encounter Visit Diagnoses + + | Diagnosis | + + | Fibromyalgia - Primary Mylagia and myositis, unspecified | + + | Neck pain Cervicalgia | + + | Trochanteric bursitis of both hips Enthesopathy of hip region | + + documented in this encounter"
--- OUTSIDE RECORDS SUMMARY | ~2019-05-17 | XMS | Encounter Summary ---
Demographics + + + | Address | [address] [facility] | | | [place] [address] | + + + | Home Phone [...] + | Author | [facility] | | | and Azana | + + + | Organization | [facility] | | [...] [place], [place] | | | | | [address] | | + + + + + | Helena Doherty | ECON | [place], | | | | | [place] [address] | | + + + + + Care Team Providers + +------+ + | Care Log Yard Derrick Operator Name | Role | Phone | [...] [place] | | | | | | [address] | | | | | | [phone] | | | +--------+ + + + [...] 05/19/ | Hospital | Radiology | Dennys Pinead PA-C | | | 2019 | Encounter | | [address] | | | | | | [address] [place] | | | | | | [place] [address] | | | | | | [phone] | | | | | | | | | | | | Facilities Plant Engineer, [place] | | +--------+ + + + + documented as of this encounter Visit Diagnoses Not on filedocumented in this encounter"
--- OUTSIDE RECORDS SUMMARY | ~2019-05-17 | XMS | Encounter Summary ---
Demographics + + + | Address | [address] [facility] | | | [place] [address] | + + + | Home Phone [...] | [facility] | | | and Azana | + + + | Organization | [facility] | | [...] [place], [place] | | | | | [address] | | + + + + + | Helena Doherty | ECON | [place], | | | | | [place] [address] | | + + + + + Care Team Providers + +------+ + | Care Fine Chemicals Operator Name | Role | Phone | [...] | Degenerative | [address] | [place], [place] | | | | | disc | [place] | [address] Phone: | | | | | disease, | [address] | [phone] | | | | | lumbar | Phone: | Fax: | | | | | Lumbar | [phone] | [phone] | | | | | foraminal | Fax: | | | | | | stenosis | [phone] | | | | | | Fibromyalgia [...] + + | 12/20/ | Office | [facility] | Fay, | Fibromyalgia | | 2017 | Visit | MED CTR THERAPY PT | FABIAN Castillo [address] | (Primary Dx); | | | | OP [address] | [facility], | Sacroiliitis (HCC) | | | | [place] | [place] [address] | | | | | [address] | [phone] | | | | | [phone] | | | | | | | Aiyana Fish S, PT | | | | | | [address] | | | | | | [place] | | | | | | [id number] | | | | | | | [...] HOSPITAL CTR THERAPY PT OP [address] [place] [address] Physical Therapy Daily Treatment Note Date: 12/20/2016 Patient Information Patient Name: Ashly Santiago Date of : 1940 Age: 76 y.o. Encounter Diagnoses Code Name Primary? M79.7 Fibromyalgia Yes M46.1 Sacroiliitis (HCC) Date of Onset: 06/08/2016 Referring Provider: Anna Aponte PA-C Rehab Precautions Flowsheet Row Office Visit from 10/19/[address] [facility] CTR THERAPY PT OP Rehab Precautions Precautions None Rehab Learning Style Flowsheet Row Office Visit from 10/19/[address] [facility] CTR THERAPY PT OP Learning Style Patient's Optimum Learning Style listening, reading, observation, performance of task Start Time: 1303 Stop time: 1409 Duration: 66 minutes Timed Treatment Codes: 66 minutes # of PT Visits to Date: 6 Subjective: Pt reports that she took a trip to [facility] to meet up with her daughter and [...] | | | | | [place] [address] | | | | | | [phone] | | | | | | | | | | | | Raisin Separator OperatorNaomi | | +--------+ + + + + documented as of this encounter Visit Diagnoses + + | Diagnosis | + + | Fibromyalgia - Primary Mylagia and myositis, unspecified | + + | Sacroiliitis (HCC) Sacroiliitis, not elsewhere classified | + + documented in this encounter"
--- OUTSIDE RECORDS SUMMARY | ~2019-05-17 | XMS | Encounter Summary ---
Demographics + + + | Address | [address] | | | [place] [address] | + + + | Home Phone | | + + + | Preferred Language | Unknown | + + + | Marital Status | | + + + | Oriental Orthodox Affiliation | Unknown | + + [...] Team Providers + +------+ + | Care Video Player Mechanic Name | Role | Phone | [...] | | | Amara Chatman Mailcode: | [place], [place] | | | | | [address] Physician's | [address] | | | | | Francy, [facility] Floor | [phone] | | | | | [place], [place] | | | | | | [address] | | | | | | [phone] | | | +--------+ + + + [...]
--- OUTSIDE RECORDS SUMMARY | ~2019-05-17 | XMS | Encounter Summary ---
Demographics + + + | Address | [address] [facility] | | | [place] [address] | + + + | Home Phone | | + + + | Preferred Language | Unknown | + + + | Marital Status | | + + + | Anabaptism Affiliation | 1077 | + + + | Race | Unknown | + + + | Ethnic Group | Unknown | + + + Author + + + | Author | [facility] | | | and [place] | + + + | Organization | [facility] | | [...] [place], [place] | | | | | [address] | | + + + + + | Helena Doherty | ECON | [place], | | | | | [place] [address] | | + + + + + Care Team Providers + +------+ + | Care Armored Truck Driver Name | Role | Phone | + +------+ + | Nathan Luevano DO | PCP | | + +------+ + Encounter Details +--------+ + + + + | Date | Type | Department | Care Team | Description | +--------+ + + + + | 02/06/ | Episode | [facility] | Sri Santiago, | | | 2017 | Changes | NEUROSURGERY [address] | [place] | | | | | [address] | | | | | | [place] | | | | | | [address] | | | | | | [phone] | | | +--------+ + + + [...] | | | | | [place] [address] | | | | | | [phone] | | | | | | | | | | | | Housekeeping/LaundryNaomi | | +--------+ + + + + documented as of this encounter Visit Diagnoses Not on filedocumented in this encounter"
--- OUTSIDE RECORDS SUMMARY | ~2019-05-17 | XMS | Encounter Summary ---
Demographics + + + | Address | [address] [facility] [facility] | | | [place] [address] | + + + | Home Phone [...] Providers + +------+ + | Care Sheet Tester Name | Role | Phone | + +------+ + | Bassem Nathan | PCP | | + +------+ + Encounter Details +--------+ + + + + | Date | Type | Department | Care Team | Description | +--------+ + + + + | 04/23/ | Document-Sc | NON-[facility] | Aristides Longo, | | | 2019 | annjoshua | Department | [facility] | | | | | | Ortho & Ryan | | | | | | [address] | | | | | | [place] [address] | | | | | | [phone] | | | | | | | [...] + + documented in this encounter Results OUTSIDE RADIOLOGY - MRI (04/23/2019 12:00 AM PDT) + + + | Narrative | Performed At | + + + | | | + + + documented in this encounter Visit Diagnoses Not on filedocumented in this encounter"
--- OUTSIDE RECORDS SUMMARY | ~2019-05-17 | XMS | Encounter Summary ---
Demographics + + + | Address | [address] [facility] | | | [place] [address] | + + + | Home Phone | | + + + | Preferred Language | Unknown | + + + | Marital Status | | + + + | Bahai Affiliation | 1077 | + + + | Race | Unknown | + + + | Ethnic Group | Unknown | + + + Author + + + | Author | [facility] | | | and Azana | + + + | Organization | [facility] | | | and [...] [place], [place] | | | | | [address] | | + + + + + | Helena Doherty | ECON | [place], | | | | | [place] [address] | | + + + + + Care Team Providers + +------+ + | Care Fence Machine Operator Name | Role | Phone [...] | +--------+ + + + + | 08/28/ | Telephone | [facility] | Aiyana Fish, | Other | | 2019 | | [facility] | PT [address] | | | | | [address] | [place] | | | | | [place] | [address] | | | | | [address] | | | | | | [phone] | | | +--------+ + + + [...] | | | | | [place] [address] | | | | | | [phone] | | | | | | | | | | | | Interface EngineerNaomi | | +--------+ + + + + documented as of this encounter Visit Diagnoses Not on filedocumented in this encounter"
--- OUTSIDE RECORDS SUMMARY | ~2019-05-17 | XMS | Encounter Summary ---
Demographics + + + | Address | [address] [facility] | | | [place] [address] | + + + | Home Phone [...] Author | [facility] | | | and Azana | + + + | Organization | [facility] | | | and [...] [place], [place] | | | | | [address] | | + + + + + | Helena Doherty | ECON | [place], | | | | | [place] [address] | | + + + + + Care Team Providers + +------+ + | Care Communications Department Head Name | Role | Phone | + [...] + + | 05/02/ | Telephone | [facility] | Andrew Miranda, | Results, Imaging | | 2017 | | PHYSIATRY [address] | PA-C [address] | (Cervical MRI ) | | | | [place], | [address] [place] | | | | | [place] [address] | [place] [address] | | | | | [phone] | [phone] | | | | | | | [...] | | | | | | [place] [address] | | | | | | [phone] | | | | | | | | | | | | GambrelerNaomi | | +--------+ + + + + documented as of this encounter Visit Diagnoses Not on filedocumented in this encounter"
--- OUTSIDE RECORDS SUMMARY | ~2019-05-17 | XMS | Encounter Summary ---
Demographics + + + | Address | [address] [facility] | | | [place] [address] | + + + | Home Phone [...] | Author | [facility] | | | and Azana | + + + | Organization | [facility] [...] [place], [place] | | | | | [address] | | + + + + + | Helena Doherty | ECON | [place], | | | | | [place] [address] | | + + + + + Care Team Providers + +------+ + | Care Salvage Diver Name | Role | Phone | + +------+ + | Sophia Bush PA-C | PCP | | + +------+ + Reason for Visit + + + | Reason | Comments | + + + | Follow-up | | + + + Encounter Details +--------+ + + + + | Date | Type | Department | Care Team | Description | +--------+ + + + + | 09/11/ | Telephone | [facility] | Osman Beth | Follow-up | | 2016 | | PHYSIATRY [address] | T, [address] | | | | | [place], | [place], [place] | | | | | [place] [address] | [address] | | | | | [phone] | | | +--------+ + + + [...] | | | | | [place] [address] | | | | | | [phone] | | | | | | | | | | | | Sales Intern, Naomi | | +--------+ + + + + documented as of this encounter Visit Diagnoses Not on filedocumented in this encounter"
--- OUTSIDE RECORDS SUMMARY | ~2019-05-17 | XMS | Encounter Summary ---
Demographics + + + | Address | [address] [facility] | | | [place] [address] | + + + | Home Phone | | + + + | Preferred Language | Unknown | + + + | Marital Status | | + + + | Oriental Orthodox Affiliation | 1077 | + + + | Race | Unknown | + + + | Ethnic Group | Unknown | + + + Author + + + | Author | [facility] | | | and Azana | + + + | Organization | [facility] | | | [...] [place], [place] | | | | | [address] | | + + + + + | Helena Doherty | ECON | [place], | | | | | [place] [address] | | + + + + + Care Team Providers + +------+ + | Care Dresser Tender Name | Role | Phone | [...] | | | bursitis, | Ave | [address] Phone: | | | | | left hip | [place], | [phone] | | | | | M70.61 | [place] | Fax: | | | | | (ICD-10-CM) | [address] | [phone] | | | | | - | Phone: | | | | | | Trochanteric | [phone] | | | | | | bursitis, | Fax: | | | | | | right hip | [phone] | | | | | | M79.7 [...] + | 10/14/ | Office | [facility] | Aiyana Fish, | Fibromyalgia | | 2019 | Visit | [facility] | PT [address] | (Primary Dx); Neck | | | | [address] | [place] | pain; Trochanteric | | | | [place] | [address] | bursitis of both | | | | [address] | | hips | | | | [phone] | | | +--------+---------+ + + + [...] be different fro m the original. [facility] [address] [place] [address] Physical Therapy Daily Treatment Note Date: 10/14/2018 [...] exercise program at her local club in [place] Electronically signed by: Aiyana Fish, PT, 10/14/2018 [...] [place] | | | | | | [place] [address] | | | | | | [phone] | | | | | | | | | | | | Heating TechnicianNaomi | | +--------+ + + + [...]
--- OUTSIDE RECORDS SUMMARY | ~2019-05-17 | XMS | Encounter Summary ---
Demographics + + + | Address | [address] [facility] | | | [place] [address] | + + + | Home Phone [...] | Author | [facility] | | | and Azana | + + + | Organization | [facility] [...] [place], [place] | | | | | [address] | | + + + + + | Helena Doherty | ECON | [place], | | | | | [place] [address] | | + + + + + Care Team Providers + +------+ + | Care Exceptional Children'S Teacher Name | Role | Phone | [...] Therapy / | M70.62 | Eleazar, | Ayiana S, PT | | | | Rehabilitatio | (ICD-10-CM) | Sophia K, | [address] | | | | n | - | PA-C [address] | [place] [place] | | | | | Trochanteric | [place] | [place] | | | | | bursitis, | Ave | [address] Phone: | | | | | left hip | [place], | [phone] | | | | | M70.61 | [place] | Fax: | | | | | (ICD-10-CM) | [address] | [phone] | | | | | - | Phone: | | | | | | Trochanteric | [phone] | | | | | | bursitis, | Fax: | | | | | | right hip | [phone] | | | | | | M79.7 [...] Description | +--------+---------+ + + + | 09/26/ | Office | [facility] | Aiyana Fish, | Fibromyalgia | | 2019 | Visit | [facility] | PT [address] | (Primary Dx); Neck | | | | [address] | [place] | pain; Trochanteric | | | | [place] | [address] | bursitis of both | | | | [address] | | hips | | | | [phone] | | | +--------+---------+ + + + [...] this encounter Progress Notes AbeAiyana, PT - 09/26/2018 12:45 PM PDTFormatting of this note might be different fro m the original. [facility] [address] [place] [address] Physical Therapy Daily Treatment Note Date: 09/26/2018 Patient Information Patient Name: Ashly Santiago Date [...] reading, observation, performance of task Start Time: 1250 Stop time: 1344 Duration: 54 minutes Timed Treatment Codes: 54 minutes # of PT Visits to Date: 18 Subjective: Pt reports that she has had a "really bad week". She is going to have to see a nephrologis t because some of her labs were off. She is in a lot of pain, having a flare up for unknown reason Pain Assessment: Pain Rating Pre Assessment: 7 Pain Rating Post Assessment: 6 Location: neck and upper back Objective: Education: discussion of stress response and pain. She has had lots of medication changes and she has some new medical concerns including a scheduled neck surgery with Dr. Pereira who is leaving Exercise: Recommended she work with stress response: Breathing techniques, listen to musi c, take short walks and keep moving even if just in small ways even though she is in pain Manual Treatment: Myofascial release and positional release therapy to multiple regions: D ural tube mobilization, sacrum, low back, upper and mid thoracic spine and cervical spine Assessment: Good response to treatment. The fascial strain pattern in her back is resolving. She is h aving a flare up probably related to her stress response to situations occurring in her life at this time. Plan: Continue with manual therapy and development of home program Electronically signed by: Aiyana Fish PT, 09/26/2018 13:45 Patient Name: Ashly Real Santiago/: 1940/ documented [...] | | | | | [address] [facility] | | | | | | [place] [address] | | | | | | [phone] | | | | | | | | | | | | Packaging MechanicNaomi | | +--------+ + + + [...]
--- OUTSIDE RECORDS SUMMARY | ~2019-05-17 | XMS | Encounter Summary ---
Demographics + + + | Address | [address] [facility] | | | [place] [address] | + + + | Home Phone [...] + | Author | [facility] | | | and Azana | + + + | Organization | [facility] | | [...] [place], [place] | | | | | [address] | | + + + + + | Helena Doherty | ECON | [place], | | | | | [place] [address] | | + + + + + Care Team Providers + +------+ + | Care Subassembly Assembler Name | Role | Phone | + [...] + + | 04/11/ | Telephone | [facility] | Andrew Miranda, | Kemar | | 2017 | | PHYSIATRY [address] | PA-C [address] | | | | | [place], | [address] [place] | | | | | [place] [address] | [place] [address] | | | | | [phone] | [phone] | | | | | | | [...] | | | | | | [place] [address] | | | | | | [phone] | | | | | | | | | | | | Soils TechnicianNaomi | | +--------+ + + + + documented as of this encounter Visit Diagnoses Not on filedocumented in this encounter"
--- OUTSIDE RECORDS SUMMARY | ~2019-05-17 | XMS | Encounter Summary ---
Demographics + + + | Address | [address] [facility] | | | [place] [address] | + + + | Home Phone [...] + + | Author | [facility] | | | and Azana | + + + | Organization | [facility] | | | [...] [place], [place] | | | | | [address] | | + + + + + | Helena Doherty | ECON | [place], | | | | | [place] [address] | | + + + + + Care Team Providers + +------+ + | Care Machine Carton Marker Name | Role | Phone | + [...] | | | bursitis, | Ave | [address] Phone: | | | | | left hip | [place], | [phone] | | | | | M70.61 | [place] | Fax: | | | | | (ICD-10-CM) | [address] | [phone] | | | | | - | Phone: | | | | | | Trochanteric | [phone] | | | | | | bursitis, | Fax: | | | | | | right hip | [phone] | | | | | | M79.7 [...] + | 10/21/ | Office | [facility] | Aiyana Fish, | Fibromyalgia | | 2019 | Visit | [facility] | PT [address] | (Primary Dx); Neck | | | | [address] | [place] | pain; Trochanteric | | | | [place] | [address] | bursitis of both | | | | [address] | | hips | | | | [phone] | | | +--------+---------+ + + + [...] be different fro m the original. [facility] [address] [place] [address] Physical Therapy Daily Treatment Note Date: 10/21/2018 Patient Information Patient Name: Ashly Santiago Date of : 1940 Age: 78 y.o. Encounter Diagnoses Code Name Primary? M79.7 Fibromyalgia Yes M54.2 Neck pain M70.61, M70.62 Trochanteric bursitis of both hips Date of Onset: 04/10/2018 Referring Provider: Sophia Bush PA-C Rehab Precautions Office Visit from 04/17/2018 in [facility] PT OP Rehab Precautions Precautions None Rehab Learning Style Office Visit from 04/17/2018 in [facility] PT OP Office Visit fro m 10/19/2016 in [facility] PT OP Learning [...] to take a 4 day trip to [place], [place] with her and tolerated the travel [...] 2018 | Encounter | | [address] [facility] | | | | | | [address] [facility] | | | | | | [place] [address] | | | | | | [phone] | | | | | | | | | | | | Insulation Cupola OperatorNaomi | | +--------+ + + + [...]
--- OUTSIDE RECORDS SUMMARY | ~2019-05-17 | XMS | Encounter Summary ---
Demographics + + + | Address | [address] [facility] | | | [place] [address] | + + + | Home Phone [...] | Author | [facility] | | | and Azana | + + + | Organization | [facility] | | | and [...] [place], [place] | | | | | [address] | | + + + + + | Hleena Doherty | ECON | [place], | | | | | [place] [address] | | + + + + + Care Team Providers + +------+ + | Care Java Consultant Name | Role | Phone | [...] | | [address] | [place] [address] | | | | | [place] | [phone] | | | | | [address] | | | | | | [phone] | | | +--------+ + + + [...] | | | | | [place] [address] | | | | | | [phone] | | | | | | | | | | | | Living Nurse, [facility] | | +--------+ + + + + documented as of this encounter Visit Diagnoses Not on filedocumented in this encounter"
--- OUTSIDE RECORDS SUMMARY | ~2019-05-17 | XMS | Encounter Summary ---
Demographics + + + | Address | [address] [facility] | | | [place] [address] | + + + | Home Phone | | + + + | Preferred Language | Unknown | + + + | Marital Status | | + + + | Yazidism Affiliation | Unknown | + + + [...] Team Providers + +------+ + | Care Religion Professor Name | Role | Phone | [...] | | | Amara Chatman Mailcode: | [place], [place] | | | | | [address] Physician's | [address] | | | | | [address], [address]th Floor | [phone] | | | | | [place], [place] | | | | | | [address] | | | | | | [phone] | | | +--------+ + + + [...]
--- OUTSIDE RECORDS SUMMARY | ~2019-05-17 | XMS | Encounter Summary ---
Demographics + + + | Address | [address] | | | [place] [address] | + + + | Home Phone | | + + + | Preferred Language | Unknown | + + + | Marital Status | | + + + | Hinduism Affiliation | 1077 | + + + | Race | Unknown | + + + | Ethnic Group | Unknown | + + + Author + + + | Author | [facility] | | | and Azana | + + + | Organization | [facility] | | | and Azana [...] [place], [place] | | | | | [address] | | + + + + + | Helena Doherty | ECON | [place], | | | | | [place] [address] | | + + + + + Care Team Providers + +------+ + | Care Hair Machine Operator Name | Role | Phone | + +------+ + | Nathan Luevano DO | PCP | | + +------+ + Reason for Visit + + + | Reason | Comments | + + + | Neurosurgery | Cancel Appt; 9M Post OP SX: 02/14/17 L4-5 LAIF, L5-S1 TLIF/ X-rays | | Appointment | prior @[facility] | + + + Encounter Details +--------+ + + + + | Date | Type | Department | Care Team | Description | +--------+ + + + + | 11/06/ | Telephone | [facility] | Agusto Pereira MD | Neurosurgery | | 2018 | | NEUROSURGERY [address] | [address] | Appointment (Cancel | | | | [address] | [place] [address] | Appt; 9M Post OP SX: | | | | [place] | [phone] | 02/14/17 L4-5 LAIF, | | | | [address] | | L5-S1 TLIF/ X-rays | | | | [phone] | | prior @[facility]) | +--------+ + + + + Social [...] 2018 | Encounter | | [address] [facility] | | | | | | [address] [place] | | | | | | [place] [address] | | | | | | [phone] | | | | | | | | | | | | Guide Dog TrainerNaomi | | +--------+ + + + + documented as of this encounter Visit Diagnoses Not on filedocumented in this encounter"
--- OUTSIDE RECORDS SUMMARY | ~2019-05-17 | XMS | Encounter Summary ---
Demographics + + + | Address | [address] [facility] | | | [place] [address] | + + + | Home Phone [...] Team Providers + +------+ + | Care Geopolitics Teacher Name | Role | Phone | [...] | | 2006 | | [facility] | MD Kemi [address] | Sae | | | | [address] | [address] | | | | | [facility] [address] | [facility] [place] | | | | | [place] | [address] | | | | | [place], [place] | [phone] | | | | | [address] | | | | | | [phone] | | | +--------+ + + + [...]
--- OUTSIDE RECORDS SUMMARY | ~2019-05-17 | XMS | Encounter Summary ---
Demographics + + + | Address | [address] [facility] | | | [place] [address] | + + + | Home Phone | | + + + | Preferred Language | Unknown | + + + | Marital Status | | + + + | Confucianist Affiliation | Unknown | + + + [...] Team Providers + +------+ + | Care Bilingual Patient Support Caseworker Name | Role | Phone | + +------+ + | Thee Boss MD | PCP | | + +------+ + Encounter Details +--------+ + + + + | Date | Type | Department | Care Team | Description | +--------+ + + + + | 06/12/ | Document-Sc | UNKNOWN DEPARTMENT | Unknown . | | | 2013 | anned | [address] | | | | | | [address] | | | | | | [place], [place] | | | | | | [address] | | | +--------+ + + + [...]
--- OUTSIDE RECORDS SUMMARY | ~2019-05-17 | XMS | Encounter Summary ---
Demographics + + + | Address | [address] [facility] | | | [place] [address] | + + + | Home Phone [...] [facility] | | | and Azana | + + + | Organization | [facility] | [...] [place], [place] | | | | | [address] | | + + + + + | Helena Doherty | ECON | [place], | | | | | [place] [address] | | + + + + + Care Team Providers + +------+ + | Care Floor Covering Installer Name | Role | Phone | [...] | Degenerative | [address] | [place], [place] | | | | | disc | [place] | [address] Phone: | | | | | disease, | [address] | [phone] | | | | | lumbar | Phone: | Fax: | | | | | Lumbar | [phone] | [phone] | | | | | foraminal | Fax: | | | | | | stenosis | [phone] | | | | | | Fibromyalgia [...] Description | +--------+---------+ + + + | 01/31/ | Office | [facility] | Fay, | Fibromyalgia | | 2017 | Visit | [facility] | FABIAN Castillo [address] | (Primary Dx); | | | | OP [address] | [facility], | Sacroiliitis (HCC) | | | | [place] | [place] [address] | | | | | [address] | [phone] | | | | | [phone] | | | | | | | Aiyana Fish S, PT | | | | | | [address] | | | | | | [place] | | | | | | [id number] | | | | | | | [...] encounter Progress Notes Aiyana Fish, PT - 01/31/2017 1:00 PM PDTFormatting of this note might be different fro m the original. [facility] PT OP [address] [place] [address] Physical Therapy Daily Treatment Note Date: 01/31/2017 Patient Information Patient Name: Ashly Santiago Date of : 1940 Age: 77 y.o. Encounter Diagnoses Code Name Primary? M79.7 Fibromyalgia Yes M46.1 Sacroiliitis (HCC) Date of Onset: 06/08/2016 Referring Provider: Anna Aponte PA-C Rehab Precautions Flowsheet Row Office Visit from 10/19/[address] [facility] PT OP Rehab Precautions Precautions None Rehab Learning Style Flowsheet Row Office Visit from 10/19/[address] [facility] PT OP Learning Style Patient's Optimum Learning Style listening, reading, observation, performance of task Start Time: 1307 Stop time: 1405 Duration: 58 minutes Timed Treatment Codes: 58 minutes # of PT Visits to Date: 11 Subjective: Pt reports that she is in distress due to some family issues that have come up. This in rn has caused her pain to be higher than usual. Pain Assessment: Objective: Education: reminder of the 4-7-8 breathing and stress reduction techniques Manual Treatment: Myofascial release and positional release therapy: Dural tube mobilizati on, right psoas, upper and mid thoracic spine, and cervical spine Assessment: Good response to treatment. Fascial release resulted in improved mobility in the mid thora cic spine PV mm and adjoining fascia following the session. Plan: Continue with manual therapy and development of home program Electronically signed by: Aiyana Fish, PT, 01/31/2017 14:32 Patient Name: Ashly Santiago/: 1940/ documented in [...] | | | | | | [place] [address] | | | | | | [phone] | | | | | | | | | | | | Credit CashierNaomi | | +--------+ + + + + [...]
--- OUTSIDE RECORDS SUMMARY | ~2019-05-17 | XMS | Encounter Summary ---
Demographics + + + | Address | [address] [facility] | | | [place] [address] | + + + | Home Phone [...] [facility] | | | and Azana | + + + | Organization | [facility] | | [...] [place], [place] | | | | | [address] | | + + + + + | Helena Doherty | ECON | [place], | | | | | [place] [address] | | + + + + + Care Team Providers + +------+ + | Care Film Process Operator Name | Role | Phone | [...] + | 08/28/ | Telephone | [facility] | Aiyana Fish, | Other | | 2019 | | [facility] | PT [address] | | | | | [address] | [place] | | | | | [place] | [address] | | | | | [address] | | | | | | [phone] | | | +--------+ + + + [...] | | | | | [place] [address] | | | | | | [phone] | | | | | | | | | | | | Certified Marine MechanicNaomi | | +--------+ + + + + documented as of this encounter Visit Diagnoses Not on filedocumented in this encounter"
--- OUTSIDE RECORDS SUMMARY | ~2019-05-17 | XMS | Encounter Summary ---
Demographics + + + | Address | [address] | | | [place] [address] | + + + | Home Phone [...] + | Author | [facility] | | | and Azana | + + + | Organization | [facility] | | | [...] [place], [place] | | | | | [address] | | + + + + + | Helena Doherty | ECON | [place], | | | | | [place] [address] | | + + + + + Care Team Providers + +------+ + | Care Building Pressure Washer Name | Role | Phone | + [...] | Degenerative | [address] | [place], [place] | | | | | disc | [place] | [address] Phone: | | | | | disease, | [address] | [phone] | | | | | lumbar | Phone: | Fax: | | | | | Lumbar | [phone] | [phone] | | | | | foraminal | Fax: | | | | | | stenosis | [phone] | | | | | | Fibromyalgia [...] + + | 10/25/ | Office | [facility] | Fay, | Acute left-sided low | | 2017 | Visit | MED CTR THERAPY PT | FABIAN Castillo [address] | back pain with | | | | OP [address] | [facility], | sciatica, sciatica | | | | [place] | [place] [address] | laterality | | | | [address] | [phone] | unspecified (Primary | | | | [phone] | | Dx); Sacroiliitis | | | | | Aiyana Fish S, PT | ([facility]); Fibromyalgia | | | | | [address] | | | | | | [place] | | | | | | [address] | | | | | | | [...] might be different fro m the original. [facility] THERAPY PT OP [address] [place] [address] Physical Therapy Daily Treatment Note Date: 10/25/2016 Patient Information Patient Name: Ashly Santiago Date of : 1940 Age: 76 y.o. Encounter Diagnoses Code Name Primary? M54.40 Acute left-sided low back pain with sciatica, sciatica laterality unspecified Alejo solorzano M46.1 Sacroiliitis (HCC) M79.7 Fibromyalgia Date of Onset: 06/08/2016 Referring Provider: Anna Aponte PA-C Rehab Precautions Office Visit from 10/19/2016 in [facility] PT OP Rehab Precautions Precautions None Rehab Learning Style Office Visit from 10/19/2016 in [facility] THERAPY [...] | | | | | [address] [facility] | | | | | | [place] [address] | | | | | | [phone] | | | | | | | | | | | | Dehydrogenation Operator, Naomi | | +--------+ + + + [...]
--- OUTSIDE RECORDS SUMMARY | ~2019-05-17 | XMS | Encounter Summary ---
Demographics + + + | Address | [address] | | | [place] [address] | + + + | Home Phone [...] | [facility] | | | and Azana | + + + | Organization | [facility] | | | and Azana [...] [place], [place] | | | | | [address] | | + + + + + | Helena Doheryt | ECON | [place], | | | | | [place] [address] | | + + + + + Care Team Providers + +------+ + | Care Hall Clerk Name | Role | Phone | [...] | Degenerative | [address] | [place], [place] | | | | | disc | [place] | [address] Phone: | | | | | disease, | [address] | [phone] | | | | | lumbar | Phone: | Fax: | | | | | Lumbar | [phone] | [phone] | | | | | foraminal | Fax: | | | | | | stenosis | [phone] | | | | | | Fibromyalgia [...] + + | 01/31/ | Office | [facility] | Fay, | Fibromyalgia | | 2017 | Visit | MED CTR THERAPY PT | FABIAN Castillo [address] | (Primary Dx); | | | | OP [address] | [facility], | Sacroiliitis (HCC) | | | | [place] | [place] [address] | | | | | [address] | [phone] | | | | | [phone] | | | | | | | Aiyana Fish S, PT | | | | | | [address] | | | | | | [place] | | | | | | [id number] | | | | | | | [...] HEALTH CTR THERAPY PT OP [address] [place] [address] Physical Therapy Daily Treatment Note Date: 01/31/2017 Patient Information Patient Name: Ashly Santiago Date of : 1940 Age: 77 y.o. Encounter Diagnoses Code Name Primary? M79.7 Fibromyalgia Yes M46.1 Sacroiliitis (HCC) Date of Onset: 06/08/2016 Referring Provider: Anna Aponte PA-C Rehab Precautions Flowsheet Row Office Visit from 10/19/2016 in [facility] OP Rehab Precautions Precautions None Rehab Learning Style Flowsheet Row [facility] [...] | | | | | | [place] [address] | | | | | | [phone] | | | | | | | | | | | | Manager QualityNaomi | | +--------+ + + + + [...]
--- OUTSIDE RECORDS SUMMARY | ~2019-05-17 | XMS | Encounter Summary ---
Demographics + + + | Address | [address] | | | [place] [address] | + + + | Home Phone | | + + + | Preferred Language | Unknown | + + + | Marital Status | | + + + | Sabianism Affiliation | 1077 | + + + | Race | Unknown | + + + | Ethnic Group | Unknown | + + + Author + + + | Author | [facility] | | | and Azana | + + + | Organization | [facility] [...] [place], [place] | | | | | [address] | | + + + + + | Helena Doherty | ECON | [place], | | | | | [place] [address] | | + + + + + Care Team Providers + +------+ + | Care Signals Analyst Name | Role | Phone | [...] left hip | [address] | [place] | | | | | Trochanteric | Ave | [address] Phone: | | | | | bursitis, | [place], | [phone] | | | | | right hip | [place] | Fax: | | | | | Fibromyalgia | [address] | [phone] | | | | | Procedures | Phone: | | | | | | PT Noel w/ | [phone] | | | | | | Aiyana | Fax: | | | | | | [place] | [phone] | | +--------+--------+ + + + + Encounter Details +--------+---------+ + + + | Date | Type | Department | Care Team | Description | +--------+---------+ + + + | 06/03/ | Office | [facility] | Schmidt[place], | Trochanteric | | 2018 | Visit | MED CTR THERAPY PT | Sophia Kingsley PA-C | bursitis of both | | | | OP [address] | [address] | hips (Primary Dx); | | | | [place] | [place], [place] | Neck pain; | | | | [address] | [address] | Fibromyalgia | | | | [phone] | [phone] | | | | | | | | | | | | Aiyana Fish S, PT | | | | | | [address] | | | | | | [place] | | | | | | [address] | | | | | | | [...] might be different fro m the original. [facility] CTR THERAPY PT OP [address] [place] [address] Physical Therapy Daily Treatment Note Date: 06/03/2018 Patient Information Patient Name: Ashly Santiago Date of : 1940 Age: 78 y.o. Encounter Diagnoses Code Name Primary? M70.61, M70.62 Trochanteric bursitis of both hips Yes M54.2 Neck pain M79.7 Fibromyalgia Date of Onset: 04/10/2018 Referring Provider: Sophia Bush PA-C Rehab Precautions Office Visit from 04/17/2018 in [facility] CTR THERAPY PT OP Rehab Precautions Precautions None Rehab Learning Style Office Visit from 04/17/2018 in [facility] CTR THERAPY PT OP Office Visit fro m 10/19/2016 in [facility] THERAP[facility] PT OP Learning Style Patient's Optimum Learning Style listening, reading, observation, performance of task lis tening, reading, observation, performance of task Start Time: 1304 Stop time: 1359 Duration: 55 minutes Timed Treatment Codes: 55 minutes # of PT Visits to Date: 6 Subjective: Pt has been very busy with 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
--- OUTSIDE RECORDS SUMMARY | ~2019-05-17 | XMS | Encounter Summary ---
Demographics + + + | Address | [address] | | | [place] [address] | + + + | Home Phone [...] | Author | [facility] | | | and Azana | + + + | Organization | [facility] | [...] [place], [place] | | | | | [address] | | + + + + + | Helena Doherty | ECON | [place], | | | | | [place] [address] | | + + + + + Care Team Providers + +------+ + | Care Clinic Manager Name | Role | Phone | + +------+ + PCP | Unavailable | + +------+ + Encounter Details +--------+ + + + + | Date | Type | Department | Care Team | Description | +--------+ + + + + | 05/23/ | Hospital | [facility] | Shahzad Andrade, | Recent retinal | | 1997 - | Encounter | [facility] [address] | [address] | detachment, partial, | | | | [address] | [place], [place] | with multiple | | 05/25/ | | [place], [place] | [address] | defects | | 1997 | | [address] | | | | | | [phone] | | | +--------+ + + + [...] | | | | | | [place] [address] | | | | | | [phone] | | | | | | | | | | | | Battery ChargerNaomi | | +--------+ + + + + documented as of this encounter Visit Diagnoses + + | Diagnosis | + + | Recent retinal detachment, partial, with multiple defects | + + documented in this encounter"
--- OUTSIDE RECORDS SUMMARY | ~2019-05-17 | XMS | Encounter Summary ---
Demographics + + + | Address | [address] | | | [place] [address] | + + + | Home Phone [...] + | Author | [facility] | | | and Azana | + + + | Organization | [facility] | [...] [place], [place] | | | | | [address] | | + + + + + | Helena Doherty | ECON | [place], | | | | | [place] [address] | | + + + + + Care Team Providers + +------+ + | Care Cardiopulmonary Technician Name | Role | Phone | [...] + + | 12/21/ | Telephone | [facility] | Agusto Pereira MD | Surgery Appointment | | 2017 | | NEUROSURGERY [address] | [address] | | | | | [address] | [place] [address] | | | | | [place] | [phone] | | | | | [address] | | | | | | [phone] | | | +--------+ + + + [...] [address] | | | | | | [place] [address] | | | | | | [phone] | | | | | | | | | | | | Baker SecondNaomi | | +--------+ + + + + documented as of this encounter Visit Diagnoses Not on filedocumented in this encounter"
--- OUTSIDE RECORDS SUMMARY | ~2019-05-17 | XMS | Encounter Summary ---
Demographics + + + | Address | [address] | | | [place] [address] | + + + | Home Phone [...] + + + | Author | [facility] | + + + | Organization | [facility] | + + + | Address | Unknown | + + + | Phone | Unavailable | + + + Support + + +---------+ + | Name | Relationship | Address | Phone | + + +---------+ + | Alon Santiago | ECON | Unknown | | + + +---------+ + Care Team Providers + +------+ + | Care Biztalk Administrator Name | Role | Phone | [...] | | | | | 4.0) ([facility]) | [place] [address] | [address] | | | | | Myalgia and | [address] | [address] [place], | | | | | myositis, | [place], | [place] | | | | | unspecified | [place] [address] | [address] | | | | | Procedures | Phone: | Phone: | | | | | [place] | [phone] | [phone] | | | | | OFFICE/OUTPT | Fax: | Fax: | | | | | | [phone] | [phone] | | | | | VISIT,EST,LE | [...] | Visit | Phys[facility] | Kinga, KIESELGUHR REGENERATOR OPERATOR [address] | Dx); Myalgia; | | | | [address] | [address] | Fatigue | | | | Celina Chatman Mailcode: | [place], [place] | | | | | [address] Physician's | [address] | | | | | Francy, 4th Floor | [phone] | | | | | [place], [place] | | | | | | [address] | | | | | | [phone] | | | +--------+---------+ + + + [...] this encounter Progress Notes Samanta Zunigae Kinga, KIESELGUHR REGENERATOR OPERATOR - 06/01/2014 4:23 PM PSTFormatting of this [...] RA and chronic fatigue. Functional Assessment: [facility] FL[facility] 09/01/2013 12/23/2013 06/01/2014 RAPID 3 6.77 [...] Lucia regarding RA. [facility] [address] [place] [address] Mailcode: Op09 [facility], 4th Floor [facility] [address] documented in t his encounter Plan of [...] | + + + + + | [facility] | [address] [facility] | [place] [address] | | | SERVICES, CORE | PARK [...] | | | LABORATORY | | | [place] | | | SERVICES, | | | [...] | + + + + + | [facility] | [address] | [place] [address] | | | SERVICES, CORE | PARK [...] + | [facility] - | [address] | [place] [address] | | | [place] | | | | + + + [...] | [facility] | [address] [facility] | [place] [address] | | | SERVICES, SPECIAL | CELINA [...] [facility] | [address] | [place] [address] | | | SERVICES, SPECIAL | PARK [...] [facility] | [address] | [place] [address] | | | SAMIR LEVY | CELINA [...] | + + + + + | [facility] | [address] | [place] [address] | | | SERVICES, SPECIAL | PARK [...] Directory | | | | | | ([employer]).Performed | | | | | | by [employer],[address] | | | | | | [facility] | | | | | | [address] | | | | | | [phone].[employer]izerra. | | | | | | [facility], Delvis Ugarte, | | | | | | Wendy MARROQIUN. Director | | | | + + + + + + + + | Specimen | + + | Blood - Blood | + + + + + + + | Performing | Address | City/State/Zipcode | Phone Number | | Organization | | | | + + + + + | [facility] | [address] | [place], [place] | | | [facility] | | [address] | | + + + + + [...] [facility] | [address] | [place] [address] | | | SERVICES, CORE | PARK [...] | + + + + + | [facility] | [address] | [place] [address] | | | SERVICES, CORE | CELINA [...]
--- OUTSIDE RECORDS SUMMARY | ~2019-05-17 | XMS | Encounter Summary ---
Demographics + + + | Address | [address] | | | [place] [address] | + + + | Home Phone [...] Team Providers + +------+ + | Care Interviewing Clerk Name | Role | Phone | [...] 2014 | Encounter | [facility] | [address] [facility] | [place] | | | | [address] | [address] [place] | | | | | Amara Chatman Mailcode: | [place] [address] | | | | | [address]09 Physician's | [phone] | | | | | Francy, 4th Floor | | | | | | [place] | | | | | | [address] | | | | | | [phone] | | | +--------+ + + + [...]
--- OUTSIDE RECORDS SUMMARY | ~2019-05-17 | XMS | Encounter Summary ---
Demographics + + + | Address | [address] [facility] [address] [facility] | | | [place] [address] | + + + | Home Phone [...] Team Providers + +------+ + | Care Information Security Director Name | Role | Phone | + +------+ + | Thee Boss MD | PCP | | + +------+ + Reason for Visit + + + | Reason | Comments | + + + | Pain | | + + + | Arthritis | | + + + | Fibromyalgia | | + + + Consultation (Routine) [...] arthritis(71 | Sophia [place]ley, | [address] [facility] | | | | | 4.0) ([facility]) | [place] [address] | [facility] | | | | | Myalgia and | [address] | [address] [place], | | | | | myositis, | [place], | [place] | | | | | unspecified | [place] [address] | [address] | | | | | | Phone: | Phone: | | | | | | [phone] | [phone] | | | | | | Fax: | Fax: | | | | | | [phone] | [phone] | +--------+--------+ + + + + Encounter Details +--------+---------+ + + + | Date | Type | Department | Care Team | Description | +--------+---------+ + + + | 12/23/ | Office | Rheumatology at | Tavia Zuniga | RA (rheumatoid | | 2013 | Visit | Physicians KALA Fung [address] [facility] | arthritis) ([facility]) | | | | [address] | [address] | (Primary Dx); | | | | Amraa Chatman Mailcode: | [place], [place] | Fibromyalgia; [facility] | | | | [address]09 Physician's | [address] | arthritis; Encounter | | | | Francy, 4th Floor | [phone] | for chronic pain | | | | [place], [place] | | management | | | | [address] | | | | | | [phone] | | | +--------+---------+ + + + [...] + + + | Blood Pressure | 148/70 | 12/23/2013 2:44 PM | | | | | PDT | | + + + + + | Pulse | 80 | 12/23/2013 2:44 PM | | | | | PDT [...] Weight | 88.5 kg (195 lb) | 12/23/2013 2:44 PM | | | | | PDT | | + + + + + | Height | - | - | | + + + + + | Body Mass Index | 32.45 | 04/07/2013 2:16 PM | | | | | PDT | | + + + + + documented in this encounter Progress Notes Alexei ARMENDARIZ Tavia Kinga - 12/23/2013 3:16 PM PDTFormatting of this note might be differen t from the original. Progress Note Clinic: Rheumatology Reason for follow-up: Chief Complaint Patient presents with Pain Arthritis Fibromyalgia Ms. Santiago returns today for reevaluation of pain and medication management. She was last seen September 01, 2013. She reports analgesia from the bupenorphine patch which allowed her to travel to [place] and throughout [place]. She did have severe bilateral knee pain prior to trip and received therapeutic steroid injections with great relief of the knee pain. She reports increasing pain in the right CMC which she doesn't think Dr. Lucia created a p bryn for as her RA is otherwise controlled. Has had pruritic diffuse upper body rash x 1 month- began with rash under breasts which sti ll persists. No true constipation. Remains on bowel regimen. Maintains safe storage of medication. Denies mood disturbance. ROS: See scanned form. Past Medical History: Past Medical History Diagnosis Date Fibromyalgia Arthropathy, unspecified, site unspecified Other general symptoms(780.99) IBS (irritable bowel syndrome) HTN (hypertension), benign Endometriosis Melanoma Medications: Current Outpatient Prescriptions Medication Sig ACETAMINOPHEN (TYLENOL [...] Stroke in her mother. Physical Exam: BP 148/70 | Pulse 80 | Wt 88.451 kg (195 lb) | BMI 32.45 kg/(m^2) Pain Score: 7 Rapid 3 MHAQ: -- (12/23/13 1500) PAIN LEVEL: 4 (12/23/13 09) GLOBAL ASSESSMENT: 4 (12/23/13 09) RAPID 3: 3.33 (07/01/14 0900) Gen: Well nourished, well developed, in NAD HEENT: unremarkable Ext: No clubbing, cyanosis, or edema M/S: +Right CMC hypertrophy, soft tissue swelling, pain with ROM Skin: +Erythematous erosions in skin folds of breasts Neuro: normal Labs: Lab Results Component Value [...] up of complex pain syndrome including fibromyalgia, increasing CMC pain and dysfunction related to OA, cutaneous gio and pain related to RA (as well as preceding diagnoses). Functional Assessment: [facility] 07/09/2013 09/01/2013 12/23/2013 RAPID 3 6.1 6.77 3.33 Recommendations: 1. Ms. Santiago continues to do well on the buprenorphine patch 10mcg in addition to methotre xate, hydroxychlorquine and interventional modalities. Her pain regimen has allowed her to travel and maintain a high quality of life. It is again asked that her primary care provide r, Dr. Thee Boss, prescribe her patch moving forward. She is a competent patient and is compliant with her pain contract. Reiterated use, SE and precautions specific to the bupre norphine patch. 2. Check urine toxicology per protocol. Continue bowel regimen with docusate 100mg BID. D etailed bowel regimen and need to prevent constipation. 3. For the advancing pain and dysfunction of Ms. Santiago's CMC OA she should be referred to occupational therapy locally for therapeutic modalities and splinting as indicated. If this proves ineffective she should see a hand specialist and have the joint injected. 4. Rx nystatin cream for topical BID application to the affected areas. If rash unimproved keep appointment with dermatology. . [facility] [address] [place] [address] Mailcode: Op09 [facility], 4th [facility] [address] documented in th is encounter Plan of [...] + + + + + | [facility] | [address] | [place] [address] | | | SERVICES, CORE | [address] | | | + + + + + documented in this encounter Visit Diagnoses + + | Diagnosis | + + | RA (rheumatoid arthritis) (HCC) - Primary Rheumatoid arthritis | + + | Fibromyalgia Mylagia and myositis, unspecified | + + | CMC arthritis Unspecified arthropathy, hand | + + | Encounter for chronic pain management | + + documented in this encounter"
--- OUTSIDE RECORDS SUMMARY | ~2019-05-17 | XMS | Encounter Summary ---
Demographics + + + | Address | [address] | | | [place] [address] | + + + | Home Phone [...] | [facility] | | | and Azana | + + + | Organization | [facility] | | | and [...] [place], [place] | | | | | [address] | | + + + + + | Helena Doherty | ECON | [place], | | | | | [place] [address] | | + + + + + Care Team Providers + +------+ + | Care Sheet Hanger Name | Role | Phone | + [...] [place] | | | | | | [place] [address] | [address] | | | | | | Phone: | Phone: | | | | | | [phone] | [phone] | | | | | | Fax: | Fax: | | | | | | [phone] | [phone] | +--------+ + + + + + Reason for Visit + + + | Reason | Comments | + + + | Follow-up | Injection: C7-T1 ILESI Right of Mid. 12/20/17 | + + + Encounter Details +--------+---------+ + + + | Date | Type | Department | Care Team | Description | +--------+---------+ + + + | 01/17/ | Office | [facility] | Andrew Miranda, | Cervical dystonia | | 2018 | Visit | PHYSIATRY [address] | PA-C [address] | (Primary Dx); | | | | [place], | [address] [place] | Cervical | | | | [place] [address] | [place] [address] | radiculopathy | | | | [phone] | [phone] | | | | | | | [...] food 1x/day -------- PT order sent to [facility] -------- Trigger point injections, Date January 21Sunday [...] puncture (pneumothorax) Nerve damage Date Last Reviewed: 03/15/201519993935-4935 [employer]. [address] [place] [address], [place] [address]. All righ ts reserved. This information is [...] Surgical History: Procedure Laterality Date APPENDECTOMY 1960 [place] BLADDER SUSPENSION 2006 with Rectocele repair; Dr. Reid and Dr. Watkins BUNIONECTOMY 04/10/2007 Radames Rinaldi; Dr. Db Berrios CATARACT REMOVAL Bilateral 1996 [facility] CHOLECYSTECTOMY, LAPAROSCOPIC 07/11/2011 Dr. Marquez COLONOSCOPY 2003 [facility] COLONOSCOPY N/A 05/23/2017 Procedure: COLONOSCOPY; Surgeon: Joshua Hilliard MD; Location: [facility] MEDICAL PROCEDURE UNIT EGD AND COLONOSCOPY 07/06/2009 [facility] Dr. Jc EGD AND COLONOSCOPY 2009 ELECTROCARDIOGRAM 05/19/2009 Dr. Boss ELECTROCARDIOGRAM 08/12/2009 Dr. Radha Stafford; [facility] 07/07/2011 [facility]; Dr. Marquez FINGER TRIGGER RELEASE Right 05/28/2014 Middle finger; Dr. Donta Agarwal FINGER TRIGGER RELEASE HEEL SPUR SURGERY Right 1997 Dr. Berrios HYSTERECTOMY, TOTAL ABDOMINAL 1972 [place] LUMBAR SPINE SURGERY Anterior 02/14/2017 Procedure: L4-5 Lateral Anterior Interbody Fusion, L5-S1 Transforaminal Lumbar Interbody F usion; Surgeon: Agusto Pereira MD; Location: [facility] MAIN OR NASAL SEPTUM SURGERY 06/06/2016 Dr. Lindsey; [facility] NEUROMA SURGERY Left 1998 PERINEAL SKIN BRIDGE 02/[address] Reid RETINAL DETACHMENT SURGERY 1997 Dr. Andrade ROTATOR CUFF REPAIR Right 04/20/2015 Dr. Jesus TONSILLECTOMY 1944 [place], [place] CURRENT MEDICATIONS: Current Outpatient Prescriptions Medication [...] has no apparent deficits with short or jail memory. She has appropriate fund of knowledge [...] PT (multiple sessions over the years) and resident care manager rn. Unfortunately Ashly Yang continues to have significant [...] Andrew Miranda PA-C at 01/17/2018 2:28 PM [facility] umented in this encounter Plan of Treatment [...] DAIANA | | | | | | [place] [address] | | | | | | [phone] | | | | | | | | | | | | Multimedia Services CoordinatorNaomi | | +--------+ + + + + + + +--------+ + + | Name | Type | Priori | Associated Diagnoses | Order Schedule | | | | ty | | | + + +--------+ + + | AMB REFERRAL TO [facility] | Outpatient | Routin | Cervical [...]
--- OUTSIDE RECORDS SUMMARY | ~2019-05-17 | XMS | Encounter Summary ---
Demographics + + + | Address | [address] | | | [place] [address] | + + + | Home Phone | | + + + | Preferred Language | Unknown | + + + | Marital Status | | + + + | Adventist Affiliation | 1077 | + + + | Race | Unknown | + + + | Ethnic Group | Unknown | + + + Author + + + | Author | [facility] | | | and Azana | + + + | Organization | [facility] | | | and Azana | + + + | Address | Unknown | + + + | Phone | Unavailable | + + + Support + + + + + | Name | Relationship | Address | Phone | + + + + + | Alon Santigao | KATERIN | [address] | | | | | [place], [place] | | | | | [address] | | + + + + + | Helena Doherty | ECON | [place], | | | | | [place] [address] | | + + + + + Care Team Providers + +------+ + | Care Heel Trimmer Name | Role | Phone | + [...] + + | 10/16/ | Telephone | [facility] | Wendy Mitchell | Other (to discuss | | 2012 | | PHYSIATRY [address] | [place] [address] | post injection form) | | | | [place], | [address] | | | | | [place] [address] | [place] [address] | | | | | [phone] | [phone] | | | | | | | [...] | | | | | [place] [address] | | | | | | [phone] | | | | | | | | | | | | Medical Technologist MicrobiologyNaomi | | +--------+ + + + + documented as of this encounter Visit Diagnoses Not on filedocumented in this encounter"
--- OUTSIDE RECORDS SUMMARY | ~2019-05-17 | XMS | Encounter Summary ---
Demographics + + + | Address | [address] [facility] [facility] | | | [place] [address] | + + + | Home Phone | | + + + | Preferred Language | Unknown | + + + | Marital Status | | + + + | Buddhism Affiliation | Unknown | + + + [...] Providers + +------+ + | Care Gear Hobber Operator Name | Role | Phone | [...] 2013 | Visit | Palmira Sen | [address] | Dx) | | | | [address] | [address] [place], | | | | | Celina Chatman Mailcode: | [place] [address] | | | | | OP09 Physician's | [phone] | | | | | Francy, [facility] Floor | | | | | | [place], [place] | | | | | | [address] | | | | | | [phone] | | | +--------+---------+ + + + [...] [facility] [place] [address] fax: [phone] CC: Chief Complaint Patient presents with New [...] labs and Dr Shelton, who was her Director Chemistry, was not sure if the symptoms wer [...] of systems. I s pent 35 minutes bmsz-tt-kfpm with the patient with over 50% in [...] by | | | | | | [employer],[address] | | | | | [address], [facility],[place] | | | | | | [address] | | | | | | [phone].[email or web address]. | | | | | | Delvis [...] [facility] | [address] | [place], [place] | | | UNIV PTH - INTFC | | [address] | | + + + + + [...] + | [facility] | [address] | [place] [address] | | | [place] | | | [...] + | [facility] | [address] | [place] [address] | | | [place] | | | | + + + [...] | + + + + + | [facility] | [address] | [place] [address] | | | SERVICES, CORE | PARK [...] | | | LABORATORY | | | ALBANIAN | | | SERVICES, | | | [...] | + + + + + | [facility] | [address] | [place] [address] | | | SERVICES, CORE | CELINA [...]
--- OUTSIDE RECORDS SUMMARY | ~2019-05-17 | XMS | Encounter Summary ---
Demographics + + + | Address | [address] [facility] [facility] | | | [place] [address] | + + + | Home Phone [...] | [facility] | | | and Azana | + + + | Organization | [facility] | [...] [place], [place] | | | | | [address] | | + + + + + | Helena Doherty | ECON | [place], | | | | | [place] [address] | | + + + + + Care Team Providers + +------+ + | Care Rotary Drier Feeder Name | Role | Phone | + +------+ + | Nathan Luevano DO | PCP | | + +------+ + Encounter Details +--------+ + + + + | Date | Type | Department | Care Team | Description | +--------+ + + + + | 03/14/ | Hospital | [facility] | Agusto Pereira MD | S/P lumbar fusion | | 2017 | Encounter | MED CTR XRAY [address] | [address] | | | | | [place] | [place] [address] | | | | | [place] [address] | [phone] | | | | | [phone] | | | +--------+ + + + [...] | | | | | [place] [address] | | | | | | [phone] | | | | | | | | | | | | Weather ForcasterNaomi | | +--------+ + + + + [...]
--- OUTSIDE RECORDS SUMMARY | ~2019-05-17 | XMS | Encounter Summary ---
Demographics + + + | Address | [address] [facility] [facility] [facility] | | | [place] [address] | + + + | Home Phone [...] | Author | [facility] | | | and Azana | + + + | Organization | [facility] | | | [...] [place], [place] | | | | | [address] | | + + + + + | Helena Doherty | ECON | [place], | | | | | [place] [address] | | + + + + + Care Team Providers + +------+ + | Care Sanitation Superintendent Name | Role | Phone | + [...] [address] | | | | | | [place] | | | | | | [address] | | | | | | [phone] | | | +--------+ + + + [...] | | | | | [place] [address] | | | | | | [phone] | | | | | | | | | | | | Composition ProfessorNaomi | | +--------+ + + + + documented as of this encounter Visit Diagnoses Not on filedocumented in this encounter"
--- OUTSIDE RECORDS SUMMARY | ~2019-05-17 | XMS | Encounter Summary ---
Demographics + + + | Address | [address] | | | [place] [address] | + + + | Home Phone | | + + + | Preferred Language | Unknown | + + + | Marital Status | | + + + | Yazdanism Affiliation | Unknown | + + + [...] Team Providers + +------+ + | Care Schedule Maker Name | Role | Phone | [...] factor | | | | [place], | | ([facility], [facility]IN [facility]) | | | | [place] [address] | | | | | | [phone] | | | +--------+------+ + + + [...] [facility] | [address] | [place] [address] | | | SERVICES, CORE | PARK [...] by | | | | | | [facility],[address] | | | | | | [address] [place], [facility],[place] | | | | | | [address] | | | | | | [phone].[facility]. | | | | | [...] [facility] | [address] | [place], [place] | | | UNIV PTH - INTFC | | [address] | | + + + + + [...] by | | | | | | [employer] | | | | | | [place], [facility],[place] | | | | | | [address] | | | | | | [phone].[facility]. | | | | | [...] [facility] | [address] | [place], [place] | | | UN[facility] PTH - INTFC | | [address] | | + + + + + [...] by | | | | | | [employer] | | | | | | David [facility], [facility],[place] | | | | | | [address] | | | | | | [phone].[employer]. | | | | | | dinorah, [...] [facility] | [address] | [place], [place] | | | UNIV PTH - INTFC | | [address] | | + + + + + [...] | + + + + + | [facility] | [address] | [place] [address] | | | SERVICES, CORE | PARK [...] | | | LABORATORY | | | BARBADIAN | | | SERVICES, | | | [...] the MDRD equation recommended by the | [facility] | | National Kidney Disease Education Program. [...] | + + + + + | [facility] | [address] | [place] [address] | | | SERVICES, CORE | [address] | | | + + + + + documented in this encounter Visit Diagnoses + + | Diagnosis | + + | Rheumatoid arthritis involving both hands with positive rheumatoid factor (HCC) | + + documented in this encounter"
--- OUTSIDE RECORDS SUMMARY | ~2019-05-17 | XMS | Encounter Summary ---
Demographics + + + | Address | [address] | | | [place] [address] | + + + | Home Phone [...] Team Providers + +------+ + | Care Online Advertising Director Name | Role | Phone | + +------+ + | Nathan Luevano | PCP | | + +------+ + Reason for Visit + + + | Reason | Comments | + + + | Renewal of | Methotrexate refills | | prescription | | + + + Encounter Details +--------+ + + + + | Date | Type | Department | Care Team | Description | +--------+ + + + + | 10/18/ | Telephone | Rheumatology at | Rosas Lucia MD | Renewal of | | 2016 | | Physicians Francy | [address] [facility] | prescription | | | | [address] | [address] [place], | (Methotrexate | | | | [address] Mailcode: | [place] [address] | refills) | | | | OP09 Physician's | [phone] | | | | | Francy, 4th Floor | | | | | | [place], [place] | | | | | | [address] | | | | | | [phone] | | | +--------+ + + + [...]
--- OUTSIDE RECORDS SUMMARY | ~2019-05-17 | XMS | Encounter Summary ---
Demographics + + + | Address | [address] [facility] [facility] | | | [place] [address] | + + + | Home Phone | | + + + | Preferred Language | Unknown | + + + | Marital Status | | + + + | Jain Affiliation | Unknown | + + + [...] Team Providers + +------+ + | Care Beater Room Supervisor Name | Role | Phone | [...] Rd | | | | | | [place], [place] | | | | | | [address] | | | +--------+ + + + [...]
--- OUTSIDE RECORDS SUMMARY | ~2019-05-17 | XMS | Encounter Summary ---
Demographics + + + | Address | [address] [facility] | | | [place] [address] | + + + | Home Phone | | + + + | Preferred Language | Unknown | + + + | Marital Status | | + + + | Hinduism Affiliation | 1077 | + + + | Race | Unknown | + + + | Ethnic Group | Unknown | + + + Author + + + | Author | [facility] | | | and Azana | + + + | Organization | [facility] | [...] [place], [place] | | | | | [address] | | + + + + + | Helena Doherty | ECON | [place], | | | | | [place] [address] | | + + + + + Care Team Providers + +------+ + | Care Supervisor Brooder Farm Name | Role | Phone | + [...] left hip | [address] | [place] | | | | | Trochanteric | Ave | [address] Phone: | | | | | bursitis, | [place], | [phone] | | | | | right hip | [place] | Fax: | | | | | Fibromyalgia | [address] | [phone] | | | | | Procedures | Phone: | | | | | | PT Noel w/ | [phone] | | | | | | Aiyana | Fax: | | | | | | [place] | [phone] | | +--------+--------+ + + + + Encounter Details +--------+---------+ + + + | Date | Type | Department | Care Team | Description | +--------+---------+ + + + | 05/27/ | Office | [facility] | [place], | Fibromyalgia | | 2018 | Visit | MED CTR THERAPY PT | Sophia Kingsley PA-C | (Primary Dx); Neck | | | | OP [address] | [address] | pain; Trochanteric | | | | [place] | [place], [place] | bursitis of both | | | | [address] | [address] | hips | | | | [phone] | [phone] | | | | | | | | | | | | Aiyana Fish S, PT | | | | | | [address] | | | | | | [place] | | | | | | [address] | | | | | | | [...] fro m the original. [facility] CTR THERAPY PT OP [address] [place] [address] Physical Therapy Daily Treatment Note Date: 05/27/2018 Patient Information Patient Name: Ashly Santiago Date of : 1940 Age: 78 y.o. Encounter Diagnoses Code Name Primary? M79.7 Fibromyalgia Yes M54.2 Neck pain M70.61, M70.62 Trochanteric bursitis of both hips Date of Onset: 04/10/2018 Referring Provider: Sophia Bush PA-C Rehab Precautions Office Visit from 04/17/2018 in [facility] CTR THERAPY PT OP Rehab Precautions Precautions None Rehab Learning Style Office Visit from 04/17/2018 in [facility] CTR THERAPY PT OP Office Visit fro m 10/19/2016 in [facility] CTR THERAPY PT OP Learning Style Patient's [...] has been doing extra movement related to Jeeran decorations- putting up tree an d lifting/carrying [...] | | | | | [address] [facility] | | | | | | [place] [address] | | | | | | [phone] | | | | | | | | | | | | Collar CutterNaomi | | +--------+ + + + [...]
--- OUTSIDE RECORDS SUMMARY | ~2019-05-17 | XMS | Clinical Summary ---
Demographics + + + | Address | [address] [facility] [facility] | | | [place] [address] | + + + | Home Phone | | + + + | Preferred Language | Unknown | + + + | Marital Status | | + + + | Baptist Affiliation | 1077 | + + + | Race | Unknown | + + + | Ethnic Group | Unknown | + + + Author + + + | Author | [facility] | | | and Azana | + + + | Organization | [facility] | | | and Azana [...] [place], [place] | | | | | [address] | | + + + + + | Helena Doherty | ECON | [place], | | | | | [place] [address] | | + + + + + Care Team Providers + +------+ + | Care Community Center Coordinator Name | Role | Phone | [...] | | | | | | [place] | | | | | | + [...] | | | | | [place] [address] | | | | | | [phone] | | | | | | | | | | | | Deputy Felony ClerkNaomi | | +--------+ + + + [...] | [employer] - | | 05/12/ | [id number] | | 12x5 - [id number]: | c | or: | MEDT | | 2023 | 5 / | | Qty: 1 on 02/14/2017 by Kelli, | | Back | | | | /17CX | | Agusto Donato MD at [facility] | | | | | | | | [facility] | | | | | | | + +--------+--------+ +--------+--------+--------+ | Imp Spn Spcr 12 Deg 12x27 - | Generi | Anteri | [employer] - | | 02/10/ | [id number] | | [id number]: Qty: 1 on | c | or: | MEDT | | 2023 | 7 / | | 02/14/2017 by Agusto Pereira, | | Back | | | | /06CR | | at [facility] | | | | | | | | [facility] | | | | | | | + +--------+--------+ +--------+--------+--------+ | Izabella Spn Spcr 6 Deg 12x22 - | Generi | Anteri | [employer] - | | 12/22/ | [id number] | | [id number]: Qty: 1 on | c | or: | MEDT | | 4 | 2 / | | 02/14/2017 by Agusto Pereira, | | Back | | | | /35CH | | MD at [facility] | | | | | | | | [facility] | | | | | | | + +--------+--------+ +--------+--------+--------+ | Freeman Perc Susan Ccm 4.44g37lc - | Generi | Anteri | [employer] - | | | 730573 | | [id number]: Qty: 2 on | c | or: | MEDT | | | 065 / | | 02/14/2017 by Agusto Pereira, | | Back | | | | / | | MD at [facility] | | | | | | | | [facility] | | | | | | | + +--------+--------+ +--------+--------+--------+ | Graft Infuse Bone Kit Xxs - | Graft | Anteri | [employer] - | | 03/24/ | [id number] | | [id number]: Qty: 1 on | | or: | MEDT | | 2017 | 0 / | | 02/14/2017 by Agusto Pereira, | | Back | | | | /[id number] | | at [facility] | | | | | | 58AAA | | [facility] | | | | | | | + +--------+--------+ +--------+--------+--------+ | Graft Infuse Bone Kit Xs - | Graft | Anteri | [employer] - | | 03/24/ | 107511 | | [id number]: Qty: 1 on | | or: | MEDT | | 2017 | 0 / | | 02/14/2017 by Agusto Pereira, | | Back | | | | /[id number] | | at [facility] | | | | | | 58AAD | | [facility] | | | | | | | + +--------+--------+ +--------+--------+--------+ | Putty Elin 10cc Dbm - | Graft | Anteri | [employer] - | | 10/25/ | [id number] | | [id number]: Qty: 1 | | or: | MEDT | | 2020 | | | on 02/14/2017 by Agusto Pereira | | Back | | | | /[id number] | | MD Kinga at [facility] | | | | | | 7-038 | | [facility] | | | | | | / | + +--------+--------+ +--------+--------+--------+ | Screw 4.75 Xtb Karen Mas | Screw | Anteri | [employer] - | | | [id number] | | 7.5x50 - [id number]: | | or: | MEDT | | | 24870 | | Qty: 2 on 02/14/2017 by Kelli, | | Back | | | | / / | | Agusto Donato MD at [facility] | | | | | | | | [facility] | | | | | | | + +--------+--------+ +--------+--------+--------+ | Screw Set Slra Perc Ti 4.75 - | Screw | Anteri | [employer] - | | | [id number] | | [id number]: Qty: 6 | | or: | MEDT | | | 0 / / | | on 02/14/2017 by Agusto Pereira | | Back | | | | | | MD [place]a at [facility] | | | | | | | | [facility] | | | | | | | + +--------+--------+ +--------+--------+--------+ | Screw 4.75 Xtb Karen Mas | Screw | Anteri | [employer] - | | | 745176 | | 6.5x50 - [id number]: | | or: | MEDT | | | 31170 | | Qty: 2 on 02/14/2017 by Kelli, | | Back | | | | / / | | Agusto Donato MD at [facility] | | | | | | | | [facility] | | | | | | | + +--------+--------+ +--------+--------+--------+ | Screw 4.75 Xtb Karen Mas | Screw | Anteri | [employer] - | | | 752491 | | 7.5x45 - [id number]: | | or: | MEDT | | | 43462 | | Qty: 2 on 02/14/2017 by Kelli, | | Back | | | | / / | | Agusto Donato MD at [facility] | | | | | | | | [facility] | | | | | | | [...] +--------+-------+---------+--------+ | [employer] | AETNA | [id number] | 06/25/19 | | | Medica | [...] a[place] | | | 0 (Home) | [address] | + +--------+ +--------+ + + | Ashly Santiago | Person | Self | [birth year] | [address] | | | al/Fam | | 1940 | [id number] | [place], [place] | | | aishwarya | | | 0 (Home) | [address] | + +--------+ +--------+ + + Advance Directives + + + + + | Type | Date Recorded | Patient | Explanation | | | | Managed Care Liaison | | + + + + + | Power of | | | | | Director Of Investigations | | | | + + + [...]
--- OUTSIDE RECORDS SUMMARY | ~2019-05-17 | XMS | Encounter Summary ---
Demographics + + + | Address | [address] [facility] | | | [place] [address] | + + + | Home Phone | | + + + | Preferred Language | Unknown | + + + | Marital Status | | + + + | Synagogue Affiliation | 1077 | + + + | Race | Unknown | + + + | Ethnic Group | Unknown | + + + Author + + + | Author | [facility] | | | and Azana | + + + | Organization | [facility] [...] [place], [place] | | | | | [address] | | + + + + + | Helena Doherty | ECON | [place], | | | | | [place] [address] | | + + + + + Care Team Providers + +------+ + | Care Floor Waxer Name | Role | Phone | + [...] | +--------+ + + + + | 12/25/ | Telephone | [facility] | Osman Beth | Appointment | | 2017 | | PHYSIATRY [address] | [address] | | | | | [place], | [place], [place] | | | | | [place] [address] | [address] | | | | | [phone] | | | +--------+ + + + [...] | | | | | [place] [address] | | | | | | [phone] | | | | | | | | | | | | UrogynaecologistNaomi | | +--------+ + + + + documented as of this encounter Visit Diagnoses Not on filedocumented in this encounter"
--- OUTSIDE RECORDS SUMMARY | ~2019-05-17 | XMS | Encounter Summary ---
Demographics + + + | Address | [address] [facility] | | | [place] [address] | + + + | Home Phone [...] Team Providers + +------+ + | Care Transit Mixer Operator Name | Role | Phone | [...] | | | | 4.0) ([facility]) | [place] [address] | Nael Maloney | | | | | Myalgia and | [address] | [address] [place], | | | | | myositis, | [place], | [place] | | | | | unspecified | [place] [address] | [address] | | | | | Procedures | Phone: | Phone: | | | | | [place] | [phone] | [phone] | | | | | OFFICE/OUTPT | Fax: | Fax: | | | | | | [phone] | [phone] | | | | | VISIT,EST,LE | [...] 2015 | Visit | Physicians KALA Fung [address] [facility] | (Primary Dx) | | | | [address] | Nael Amara Chatman | | | | | Amara Chatman Mailcode: | [place], [place] | | | | | [address] Physician's | [address] | | | | | [place], | [phone] | | | | | [place] [address] | | | | | | [phone] | | | +--------+---------+ + + + [...] Follow-up visit Ms. Santiago was last seen September 08, 2014. Had [...] and provided counseling and education. Functional Assessment: [facility] FLOWSHEET 09/08/2014 06/14/2015 06/15/2015 RAPID 3 [...] future if needed. [facility] [address] [place] [address] Mailcode: Op09 [facility], 4th [facility] [address] Display Progress Note in MyChart: No documented in t his encounter Plan of Treatment Not on filedocumented as of this encounter Visit Diagnoses + + | Diagnosis | + + | Fibromyalgia - Primary Mylagia and myositis, unspecified | + + documented in this encounter"
--- OUTSIDE RECORDS SUMMARY | ~2019-05-17 | XMS | Encounter Summary ---
Demographics + + + | Address | [address] [facility] | | | [place] [address] | + + + | Home Phone | | + + + | Preferred Language | Unknown | + + + | Marital Status | | + + + | Hindu Affiliation | 1077 | + + + | Race | Unknown | + + + | Ethnic Group | Unknown | + + + Author + + + | Author | [facility] | | | and Azana | + + + | Organization | [facility] | [...] [place], [place] | | | | | [address] | | + + + + + | Helena Doherty | ECON | [place], | | | | | [place] [address] | | + + + + + Care Team Providers + +------+ + | Care Harp Action Assembler Name | Role | Phone | [...] | | | bursitis, | Ave | [address] Phone: | | | | | left hip | [place], | [phone] | | | | | M70.61 | [place] | Fax: | | | | | (ICD-10-CM) | [address] | [phone] | | | | | - | Phone: | | | | | | Trochanteric | [phone] | | | | | | bursitis, | Fax: | | | | | | right hip | [phone] | | | | | | M79.7 [...] + | 09/18/ | Office | [facility] | Aiyana Fish, | Fibromyalgia | | 2019 | Visit | [facility] | PT [address] | (Primary Dx); Neck | | | | [address] | [place] | pain; Trochanteric | | | | [place] | [address] | bursitis of both | | | | [address] | | hips | | | | [phone] | | | +--------+---------+ + + + [...] be different fro m the original. [facility] [address] [place] [address] Physical Therapy Daily Treatment Note Date: 09/18/2018 Patient Information Patient Name: Ashly Santiago Date of : 1940 Age: 78 y.o. Encounter Diagnoses Code Name Primary? M79.7 Fibromyalgia Yes M54.2 Neck pain M70.61, M70.62 Trochanteric bursitis of both hips Date of Onset: 04/10/2018 Referring Provider: Sophia Bush PA-C Rehab Precautions Office Visit from 04/17/2018 in [facility] OP Rehab Precautions Precautions None Rehab Learning Style Office Visit from 04/17/2018 in [facility] OP Office Visit fro m 10/19/2016 in [facility] PT OP Learning Style Patient's [...] | | | | | | [place] [address] | | | | | | [phone] | | | | | | | | | | | | Productivity EngineerNaomi | | +--------+ + + + [...]
--- OUTSIDE RECORDS SUMMARY | ~2019-05-17 | XMS | Encounter Summary ---
Demographics + + + | Address | [address] [facility] | | | [place] [address] | + + + | Home Phone [...] | [facility] | | | and Azana | + + + | Organization | [facility] | | | and Azana | + + + | Address | Unknown | + + + | Phone | Unavailable | + + + Support + + + + + | Name | Relationship | Address | Phone | + + + + + | Alon Santiaog | KATERIN | [address] | | | | | [place], [place] | | | | | [address] | | + + + + + | Helena Doherty | ECON | [place], | | | | | [place] [address] | | + + + + + Care Team Providers + +------+ + | Care Loan Administrator Name | Role | Phone | [...] + + | 07/18/ | Telephone | [facility] | Agusto Pereira MD | Back Pain; Post-op | | 2017 | | NEUROSURGERY [address] | [address] | Question | | | | [address] [facility] [address] | [place] [address] | | | | | [place] | [phone] | | | | | [address] | | | | | | [phone] | | | +--------+ + + + [...] | | | | | [place] [address] | | | | | | [phone] | | | | | | | | | | | | Training Systems OfficerNaomi | | +--------+ + + + + documented as of this encounter Visit Diagnoses Not on filedocumented in this encounter"
--- OUTSIDE RECORDS SUMMARY | ~2019-05-17 | XMS | Clinical Summary ---
Demographics + + + | Address | [address] [facility] | | | [place] [address] | + + + | Home Phone [...] + | Author | [facility] (Historical as of | | | 02-08-19) | + + + | Organization | [facility] (Historical as of | | | 02-08-19) [...] [place], [place] | | | | | [address] | | + + + + + Care Team Providers + +------+ + | Care Deckhand Crab Boat Name | Role | Phone | + [...] | Chronic kidney disease, stage III (moderate) ([facility]) | 10/24/2018 | + + + [...] | MA - AETNA | MA-AET | [id number] | Medica | | | | | [...] | | al/Fam | | 1940 | [phone] | [place] | | | aishwarya | | | 2619 | [address] | + +--------+ +--------+ + +
--- OUTSIDE RECORDS SUMMARY | ~2019-05-17 | XMS | Encounter Summary ---
Demographics + + + | Address | [address] [facility] | | | [place] [address] | + + + | Home Phone [...] | Author | [facility] | | | and Azana | + + + | Organization | [facility] | | [...] [place], [place] | | | | | [address] | | + + + + + | Helena Doherty | ECON | [place], | | | | | [place] [address] | | + + + + + Care Team Providers + +------+ + | Care Claims Adjuster Supervisor Name | Role | Phone | [...] | | | | | | | LA | | | | | | | ARTHDSIS | | | | | | | POST/POSTERO | | | | | | | LATRL/POSTIN | | | | | | | TERBODY | | | | | | | LUMBAR LA | | | | | | | SPINE | | | | | | | FUSN,POST | | | | | | | TECH,EA | | | | | | | ADDNL SGMT | | | | | | | LA LUMBAR | | | | | | [...] | | | | | | SEG LA | | | | | | | LAMINEC/FACE | | | | | | | TECT/FORAMIN | | | | | | | ,EACH ADDNL | | | | | | | LA INSJ | | | | | | | BIOMCHN DEV | | | | | | | INTERVERTEBR | | | | | | | AL DSC SPC | | | | | | | W/ARTHRD LA | | | | | | | [...] + + | 02/13/ | Surgery | [facility] | Agusto Pereira MD | Canceled L4-5 | | 2017 | | MED CTR OR INTRA OP | [address] | Lateral Anterior | | | | [address] | [place] [address] | Interbody Fusion, | | | | [place] | [phone] | L5-S1 Transforaminal | | | | [address] | | Lumbar Interbody | | | | [phone] | | Fusion | +--------+---------+ + + [...] | | | | | [place] [address] | | | | | | [phone] | | | | | | | | | | | | Occupational Health And Safety Manager, Ws | | +--------+ + + + [...]
--- OUTSIDE RECORDS SUMMARY | ~2019-05-17 | XMS | Encounter Summary ---
Demographics + + + | Address | [address] | | | [place] [address] | + + + | Home Phone | | + + + | Preferred Language | Unknown | + + + | Marital Status | | + + + | Restoration Affiliation | 1077 | + + + | Race | Unknown | + + + | Ethnic Group | Unknown | + + + Author + + + | Author | and [facility] | | | and Azana | + + + | Organization | [facility] | | [...] [place], [place] | | | | | [address] | | + + + + + | Helena Doherty | ECON | [place], | | | | | [place] [address] | | + + + + + Care Team Providers + +------+ + | Care Boiler Tube Reamer Name | Role | Phone | + [...] + + | 09/03/ | Telephone | [facility] | Agusto Pereira MD | Neck Pain; Neck | | 2018 | | NEUROSURGERY [address] | [address] | Stiffness; | | | | [address] | [place] [address] | Coordination Of Care | | | | [place] | [phone] | (PCP) | | | | [address] | | | | | | [phone] | | | +--------+ + + + [...] 2019 | Encounter | | [address] [facility] | | | | | | [address] [place] | | | | | | [place] [address] | | | | | | [phone] | | | | | | | | | | | | Fiberglass Bonding Machine TenderNaomi | | +--------+ + + + + documented as of this encounter Visit Diagnoses Not on filedocumented in this encounter"
--- OUTSIDE RECORDS SUMMARY | ~2019-05-17 | XMS | Encounter Summary ---
Demographics + + + | Address | [address] [facility] [facility] | | | [place] [address] | + + + | Home Phone [...] [facility] | | | and Azana | + + + | Organization | [facility] | | [...] [place], [place] | | | | | [address] | | + + + + + | Helena Doherty | ECON | [place], | | | | | [place] [address] | | + + + + + Care Team Providers + +------+ + | Care Digital Developer Name | Role | Phone | [...] 50 | | | | | | [place] | | | | | | [address] | | | | | | [phone] | | | +--------+ + + + [...] | | | | | | [place] [address] | | | | | | [phone] | | | | | | | | | | | | Supervisor Public Message Service, [facility] | | +--------+ + + + + documented as of this encounter Visit Diagnoses Not on filedocumented in this encounter"
--- OUTSIDE RECORDS SUMMARY | ~2019-05-17 | XMS | Encounter Summary ---
Demographics + + + | Address | [address] [facility] | | | [place] [address] | + + + | Home Phone [...] Author | [facility] | | | and Azana | + + + | Organization | [facility] | [...] [address] | | | | | [place], [place] | | | | | [address] | | + + + + + | Helena Doherty | ECON | [place], | | | | | [place] [address] | | + + + + + Care Team Providers + +------+ + | Care Spout Positioner Name | Role | Phone | + [...] | Lumbar | [place], | [address] | | | | | radiculopath | Osman Price MD | [place], | | | | | y | [address] | [place] | | | | | Procedures | ST [place] | [address] | | | | | [place] INJECT | [place] | Phone: | | | | | ANES/STEROID | [address] | [phone] | | | | | FORAMEN | Phone: | Fax: | | | | | LUMBAR/SACRA | [phone] | [phone] | | | | | L W IMG | Fax: | | | | | | GUIDE ,1 | [phone] | | | | | | LEVEL [place] | | | | | | | [...] + + | 08/30/ | Hospital | [facility] | Bogdanowicz, | Lumbar | | 2017 | Encounter | MED CTR XRAY [address] | FABIAN Castillo [address] | radiculopathy; | | | | [address] [place] | [facility], | DEGENERATIVE DISC | | | | [place] [address] | [place] [address] | DISEASE, LUMBAR | | | | [phone] | [phone] | SPINE; 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 | | | | | Vp MarketingNaomi | | +--------+ + + + + [...] | | | | | | [place] [address] | | | | | | [phone] | | | | | | | | | | | | Vp Marketing, [facility] | | +--------+ + + + [...] Lumbar radiculopathy ICD-10 Code M54.16 Ashly [place] | [facility] | | presents to the fluoroscopy suite for a fluoroscopically-guided [facility] | | L5-S1 transforaminal epidural steroid injection [...] + + | Performing | Address | City/State/[facility] | Phone Number | | Organization | | | | + + + + + | NANCY KNOTT | Nico Knott | [place] | [phone] | | [facility] | | [address] | | | - IMAGING | | [...]
--- OUTSIDE RECORDS SUMMARY | ~2019-05-17 | XMS | Encounter Summary ---
Demographics + + + | Address | [address] [facility] | | | [place] [address] | + + + | Home Phone [...] | [facility] | | | and Azana | + + + | Organization | [facility] | | | and Azana | [...] [place], [place] | | | | | [address] | | + + + + + | Helena Doherty | ECON | [place], | | | | | [place] [address] | | + + + + + Care Team Providers + +------+ + | Care Lead Programmer Name | Role | Phone | + +------+ + | Nathan Luevano DO | PCP | | + +------+ + Encounter Details +--------+ + + + + | Date | Type | Department | Care Team | Description | +--------+ + + + + | 08/01/ | Episode | [facility] [place] | Marita Matamoros M, | | | 2019 | Changes | NEUROSURGERY [address] | Cert [place] | | | | | [address] | | | | | | [place] | | | | | | [address] | | | | | | [phone] | | | +--------+ + + + [...] | | | | | [place] [address] | | | | | | [phone] | | | | | | | | | | | | Production Engine Repairer, [facility] | | +--------+ + + + + documented as of this encounter Visit Diagnoses Not on filedocumented in this encounter"
--- OUTSIDE RECORDS SUMMARY | ~2019-05-17 | XMS | Encounter Summary ---
Demographics + + + | Address | [address] [facility] | | | [place] [address] | + + + | Home Phone | | + + + | Preferred Language | Unknown | + + + | Marital Status | | + + + | Church Affiliation | Unknown | + + + [...] Team Providers + +------+ + | Care Lift Manager Name | Role | Phone | [...] 2014 | Encounter | Physicians Francy | [address] | mg (Plaquenil) tab | | | | [address] | [address] [place], | | | | | Amara Chatman Mailcode: | [place] [address] | | | | | [address] Physician's | [phone] | | | | | Francy [place], | | | | | | [place] [address] | | | | | | [phone] | | | +--------+ + + + [...]
--- OUTSIDE RECORDS SUMMARY | ~2019-05-17 | XMS | Encounter Summary ---
Demographics + + + | Address | [address] [facility] | | | [place] [address] | + + + | Home Phone | | + + + | Preferred Language | Unknown | + + + | Marital Status | | + + + | Mu-Ism Affiliation | Unknown | + + + | Race | White | + + + | Ethnic Group | Not or | + + + Author + + + | Author | [facility] | + + + | Organization | [facility] | + + + | Address | Unknown | + + + | Phone | Unavailable | + + + Support + + +---------+ + | Name | Relationship | Address | Phone | + + +---------+ + | Alon Santiago | ECON | Unknown | | + + +---------+ + Care Team Providers + +------+ + | Care Gardener Name | Role | Phone | + [...] | | | Amara Chatman Mailcode: | [place], [place] | | | | | [address] Physician's | [address] | | | | | [address]ancy, [address]th Floor | [phone] | | | | | [place], [place] | | | | | | [address] | | | | | | [phone] | | | +--------+ + + + [...]
--- OUTSIDE RECORDS SUMMARY | ~2019-05-17 | XMS | Encounter Summary ---
Demographics + + + | Address | [address] [facility] | | | [place] [address] | + + + | Home Phone | | + + + | Preferred Language | Unknown | + + + | Marital Status | | + + + | Restorationist Affiliation | Unknown | + + + [...] Team Providers + +------+ + | Care Informaticist Name | Role | Phone | + +------+ + | Thee oBss MD | PCP | | + +------+ [...] 2014 | Visit | Palmira Sen | [address] | ([facility]) (Primary Dx) | | | | [address] | [address] [place], | | | | | [address] Mailcode: | [place] [address] | | | | | [address] Physician's | [phone] | | | | | Francy, 4th Floor | | | | | | [place], [place] | | | | | | [address] | | | | | | [phone] | | | +--------+---------+ + + + [...] by: Tavia Linda, KALA [address] [facility] [place] [address] fax: [phone] CC: Chief Complaint Patient presents with Follow-up [...] labs but Dr Shelton, who was her Primary Grade Teacher, was not sure if the symptoms were [...] details are: joint pain ROS: scanned in [facility] PMH: Past Medical History Diagnosis Date [...] of systems. I s pent 20 minutes qrtn-vt-[id number] with the patient with over 50% in [...] [facility] | [address] | [place] [address] | | | SERVICES, CORE | PARK [...] | | | LABORATORY | | | [facility] | | | SERVICES, | | | [...] [facility] | [address] | [place] [address] | | | SERVICES, CORE | [address] | | | + + + + + documented in this encounter Visit Diagnoses + + | Diagnosis | + + | Rheumatoid arthritis(714.0) ([facility]) - Primary Rheumatoid arthritis | + + documented in this encounter"
--- OUTSIDE RECORDS SUMMARY | ~2019-05-17 | XMS | Encounter Summary ---
Demographics + + + | Address | [address] [facility] | | | [place] [address] | + + + | Home Phone [...] + | Author | [facility] | | | and Azana | + + + | Organization | [facility] | | | and Azana [...] [place], [place] | | | | | [address] | | + + + + + | Helena Doherty | ECON | [place], | | | | | [place] [address] | | + + + + + Care Team Providers + +------+ + | Care Section Supervisor Name | Role | Phone | [...] Andrew Miranda, | Medication Refill | | 2017 | | PHYSIATRY [address] | PA-C [address] | | | | | Maybee [place], | [address] [place] | | | | | [place] [address] | [place] [address] | | | | | [phone] | [phone] | | | | | | | [...] | | | | | [place] [address] | | | | | | [phone] | | | | | | | | | | | | White Mixing Operator, [facility] | | +--------+ + + + + documented as of this encounter Visit Diagnoses Not on filedocumented in this encounter"
--- OUTSIDE RECORDS SUMMARY | ~2019-05-17 | XMS | Encounter Summary ---
Demographics + + + | Address | [address] [facility] | | | [place] [address] | + + + | Home Phone [...] | Author | [facility] | | | and Azana | + + + | Organization | [facility] | | [...] [place], [place] | | | | | [address] | | + + + + + | Helena Doherty | ECON | [place], | | | | | [place] [address] | | + + + + + Care Team Providers + +------+ + | Care Decorator Street And Building Name | Role | Phone | + [...] left hip | [address] | [place] | | | | | Trochanteric | Ave | [address] Phone: | | | | | bursitis, | [place], | [phone] | | | | | right hip | [place] | Fax: | | | | | Fibromyalgia | [address] | [phone] | | | | | Procedures | Phone: | | | | | | PT Noel w/ | [phone] | | | | | | Aiyana | Fax: | | | | | | [place] | [phone] | | +--------+--------+ + + + + Encounter Details +--------+---------+ + + + | Date | Type | Department | Care Team | Description | +--------+---------+ + + + | 04/17/ | Office | [facility] | Schmidtgall, | Neck pain (Primary | | 2018 | Visit | MED CTR THERAPY PT | Sophia Kingsley PA-C | Dx); Fibromyalgia; | | | | OP [address] | [address] | Trochanteric | | | | [place] | [place], [place] | bursitis of both | | | | [address] | [address] | hips | | | | [phone] | [phone] | | | | | | | | | | | | Aiyana Fish S, PT | | | | | | [address] | | | | | | [place] | | | | | | [id number] | | | | | | | [...] might be different fro m the original. [facility] THERAPY PT OP [address] [place] [address] Physical Therapy Initial Assessment Date: 04/17/2018 Patient [...] Work status:Retired Living situation: Lives with in [place] Social History Social History Marital status: Spouse [...] Surgical History: Procedure Laterality Date APPENDECTOMY 1960 [place] BLADDER SUSPENSION 2005 with Rectocele repair; Dr. Reid and Dr. Watkins BUNIONECTOMY 04/10/2007 [facility] Bunion; Dr. Db Berrios CATARACT REMOVAL Bilateral 1996 [facility] CHOLECYSTECTOMY, LAPAROSCOPIC 07/11/2011 Dr. Marquez COLONOSCOPY 2003 [facility] COLONOSCOPY N/A 05/23/2017 Procedure: COLONOSCOPY; Surgeon: Joshua Hilliard MD; Location: [facility] MEDICAL PROCEDURE UNIT EGD AND COLONOSCOPY 07/06/[address] [facility] [address] Jc EGD AND COLONOSCOPY 2009 ELECTROCARDIOGRAM 05/19/2009 Dr. Boss ELECTROCARDIOGRAM 08/12/2009 Dr. Radha Stafford; [facility] 07[facility]07/2011 [facility]; Dr. Marquez FINGER TRIGGER RELEASE Right 05/28/2014 Middle finger; Dr. Donta Richard FINGER TRIGGER RELEASE HEEL SPUR SURGERY Right 1997 Dr. Berrios HYSTERECTOMY, TOTAL ABDOMINAL 1972 [place] LUMBAR SPINE SURGERY Anterior 02/14/2017 Procedure: L4-5 Lateral Anterior Interbody Fusion, L5-S1 Transforaminal Lumbar Interbody F usion; Surgeon: Agusto Pereira MD; Location: [facility] MAIN OR NASAL SEPTUM SURGERY 06/06/2016 Dr. Lindsey; [facility] NEUROMA SURGERY Left 1998 PERINEAL SKIN BRIDGE [...] (From Chronic Pain tab; printable questionnaires in [place]) Interpretation of Total Score: The lower the [...] 04/17/2018 Certification To: 07/18/2018 Treatment Plan/Interventions PT [id number] - Therapeutic [id number] - Therapeutic [id number] - Manual Thera [id number] - Self Care/Home Management Patient and/or family [...] | | | | | [address] [facility] | | | | | | [place] [address] | | | | | | [phone] | | | | | | | | | | | | Brewery Pumper, [place] | | +--------+ + + + [...]
--- OUTSIDE RECORDS SUMMARY | ~2019-05-17 | XMS | Encounter Summary ---
Demographics + + + | Address | [address] [facility] | | | [place] [address] | + + + | Home Phone [...] Author | [facility] | | | and Azana | + + + | Organization | [facility] | | | and Azana [...] [place], [place] | | | | | [address] | | + + + + + | Helena Doherty | ECON | [place], | | | | | [place] [address] | | + + + + + Care Team Providers + +------+ + | Care Salesperson Meats Name | Role | Phone | + +------+ + | Nathan Luevano DO | PCP | | + +------+ + Encounter Details +--------+ + + + + | Date | Type | Department | Care Team | Description | +--------+ + + + + | 07/03/ | Episode | [facility] [place] | Marita Matamoros M, | | | 2019 | Changes | NEUROSURGERY [address] | Cert [place] | | | | | [address] | | | | | | [place] | | | | | | [address] | | | | | | [phone] | | | +--------+ + + + [...] | | | | | | [place] [address] | | | | | | [phone] | | | | | | | | | | | | Digital Media Coordinator, [facility] | | +--------+ + + + + documented as of this encounter Visit Diagnoses Not on filedocumented in this encounter"
--- OUTSIDE RECORDS SUMMARY | ~2019-05-17 | XMS | Encounter Summary ---
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 | + +--------+ + + + | GRAEME ANTIBODIES | Routin | 04/07/2013 | RA (rheumatoid | Results for this | | IDENTIFICATION, | e | 4:36 PM | arthritis) ([facility]) | procedure are in the | | SERUM | | PDT | | results section. | + +--------+ + + + | C-REACTIVE PROTEIN | Routin | 04/07/2013 | RA (rheumatoid | Results for this | | | e | 4:36 PM | arthritis) ([facility]) | procedure are in the | | [...] [facility] | [address] | [place] [address] | | | SERVICES, SPECIAL | PARK [...] [facility] | [address] | [place] [address] | | | SERVICES, SPECIAL | PARK [...] | + + + + + | [facility] | [address] | [place] [address] | | | SERVICES, CORE | CELINA [...] + | [facility] - | [address] | [place] [address] | | | [place] | | | [...] [facility] | [address] | [place] [address] | | | SERVICES, CORE | PARK [...] EZEQUIEL SCREEN | Negative | Negative | [facility] | | | ON HEP | [...] | + + + + + | [facility] - | [address] | [place] [address] | | | [facility] | | | | + + + [...] + + + + + + | [facility] | Negative | Negative | [facility] [...] 7.0-10 | SERVICES, | | >10 Crystal CERAMIC COATER MACH[facility] AB U/ml <5.0 5.0-10 | SPECIAL IMM [...] | + + + + + | [facility] | [address] | [place] [address] | | | SERVICES, SPECIAL | CELINA [...] | + + + + + | [facility] | [address] | [place] [address] | | | SERVICES, CORE | PARK [...] [facility] | [address] | [place] [address] | | | SAMIR LEVY | PARK [...] [facility] | [address] | [place] [address] | | | SERVICES, SAMIR | CELINA [...] | | | 0.5-2.5. uIU/ml | | [facility] | | + + + + + + + + | Specimen | + + | Blood - Blood | + + + + + + + | Performing | Address | City/State/Zipcode | Phone Number | | Organization | | | | + + + + + | [facility] | [address] | [place] [address] | | | [place] | | | | + + + [...]
--- OUTSIDE RECORDS SUMMARY | ~2019-05-17 | XMS | Encounter Summary ---
Demographics + + + | Address | [address] [facility] | | | [place] [address] | + + + | Home Phone [...] | Author | [facility] | | | and Azana | + + + | Organization | [facility] | | [...] [place], [place] | | | | | [address] | | + + + + + | Helena Doherty | ECON | [place], | | | | | [place] [address] | | + + + + + Care Team Providers + +------+ + | Care Garment Presser Name | Role | Phone | + [...] | | [address] | [place] [address] | | | | | [place], [place] | [phone] | | | | | [address] | | | | | | [phone] | | | +--------+ + + + [...] of this encounter Progress Notes Dominga Sims, Office Coordinator Receptionist - 07/03/2018 12:55 PM PST Outpatient Morphine Equivalent Daily Dose (MEDD) None Opioid Risk Tool (ORT): Total Score 4 (07/03/18 8404) (0 to 3 = Low risk: 6% [...] severe) The following information was obtained from https://Locomizer.Piccsy.net/login on 07/03/18. [place] BRANCH LENDING MANAGER was checked on 07/03/18 and no medications have been dispensed over the past 3 m [facility]. The following information was obtained from https://misterbnb.Rentlytics.gov/myAccess/saw/select .do on 07/03/18. Tdocumented in this encounter [...] | | | | | | [place] [id number] | | | | | | [phone] | | | | | | | | | | | | Maternity Floor SupervisorNaomi | | +--------+ + + + + documented as of this encounter Visit Diagnoses Not on filedocumented in this encounter"
--- OUTSIDE RECORDS SUMMARY | ~2019-05-17 | XMS | Encounter Summary ---
Demographics + + + | Address | [address] [facility] | | | [place] [address] | + + + | Home Phone [...] | Author | [facility] | | | and Azana | + + + | Organization | [facility] | [...] [place], [place] | | | | | [address] | | + + + + + | Helena Doherty | ECON | [place], | | | | | [place] [address] | | + + + + + Care Team Providers + +------+ + | Care Adjunct Instructor In Economics Name | Role | Phone | + [...] + + | 05/16/ | Office | [facility] | Onesimo Oliveira | S/P lumbar fusion | | 2016 | Visit | NEUROSURGERY [address] | [address]ABIAN [address] | (Primary Dx); 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 documented in this encounter Progress Notes Onesimo Oliveira PA-C - 05/16/2017 2:30 PM PSTFormatting of this note might be differ ent from the original. 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 She aditya eves that if she can [...] started seeing a new Ur ologist in [place], Dr. Burris, for treatment of her urinary [...] seen in our office in 2 months extermination inspector pain medication does not appear to [...] | | | | | [place] [id number] | | | | | | [phone] | | | | | | | | | | | | Generator MechanicNaomi | | +--------+ + + + [...]
--- OUTSIDE RECORDS SUMMARY | ~2019-05-17 | XMS | Encounter Summary ---
Demographics + + + | Address | [address] [facility] | | | [place] [address] | + + + | Home Phone [...] | Author | [facility] | | | and Azana | + + + | Organization | [facility] | | | and [...] [place], [place] | | | | | [address] | | + + + + + | Helena Doherty | ECON | [place], | | | | | [place] [address] | | + + + + + Care Team Providers + +------+ + | Care Office Helper Clerical Name | Role | Phone | + [...] [place], | | | | | [place], [place] | [place] [address] | | | | | [address] | [phone] | | | | | [phone] | | | +--------+ + + + [...] | | | | [address] [facility] | | | | | | [place] [address] | | | | | | [phone] | | | | | | | | | | | | Bowling Floor ManagerNaomi | | +--------+ + + + + documented as of this encounter Visit Diagnoses Not on filedocumented in this encounter"
--- OUTSIDE RECORDS SUMMARY | ~2019-05-17 | XMS | Encounter Summary ---
Demographics + + + | Address | [address] [facility] | | | [place] [address] | + + + | Home Phone | | + + + | Preferred Language | Unknown | + + + | Marital Status | | + + + | Caodaism Affiliation | Unknown | + + + | Race | White | + + + | Ethnic Group | Not or | + + + Author + + + | Author | [facility] | + + + | Organization | [facility] | + + + | Address | Unknown | + + + | Phone | Unavailable | + + + Support + + +---------+ + | Name | Relationship | Address | Phone | + + +---------+ + | Alon Santiago | ECON | Unknown | | + + +---------+ + Care Team Providers + +------+ + | Care Caser Up Name | Role | Phone | + [...] 2016 | Encounter | [facility] | [address] [facility] | [place] | | | | [address] | [address] [place], | | | | | Amara Chatman Mailcode: | [place] [address] | | | | | [address] Physician's | [phone] | | | | | Francy, 4th Floor | | | | | | [place], [place] | | | | | | [address] | | | | | | [phone] | | | +--------+ + + + [...]
--- OUTSIDE RECORDS SUMMARY | ~2019-05-17 | XMS | Encounter Summary ---
Demographics + + + | Address | [address] [facility] | | | [place] [address] | + + + | Home Phone [...] | Author | [facility] | | | and Azana | + + + | Organization | [facility] [...] [place], [place] | | | | | [address] | | + + + + + | Helena Doherty | ECON | [place], | | | | | [place] [address] | | + + + + + Care Team Providers + +------+ + | Care School Treasurer Name | Role | Phone | + [...] | | | bursitis, | Ave | [address] Phone: | | | | | left hip | [place], | [phone] | | | | | M70.61 | [place] | Fax: | | | | | (ICD-10-CM) | [address] | [phone] | | | | | - | Phone: | | | | | | Trochanteric | [phone] | | | | | | bursitis, | Fax: | | | | | | right hip | [phone] | | | | | | M79.7 [...] + | 09/26/ | Office | [facility] | Aiyana Fish, | Fibromyalgia | | 2019 | Visit | [facility] | PT [address] | (Primary Dx); Neck | | | | [address] | [place] | pain; Trochanteric | | | | [place] | [address] | bursitis of both | | | | [address] | | hips | | | | [phone] | | | +--------+---------+ + + + [...] different fro m the original. [facility] [address] [place] [address] Physical Therapy Daily Treatment Note Date: 09/26/2018 Patient Information Patient Name: Ashly Santiago Date of : 1940 Age: 78 y.o. Encounter Diagnoses Code Name Primary? M79.7 Fibromyalgia Yes M54.2 Neck pain M70.61, M70.62 Trochanteric bursitis of both hips Date of Onset: 04/10/2018 Referring Provider: Sophia Bush PA-C Rehab Precautions Office Visit from 04/17/2018 in [facility] PT OP Rehab Precautions Precautions None Rehab Learning Style Office Visit from 04/17/2018 in [facility] OP Office Visit fro m 10/19/2016 in [facility] PT OP Learning Style Patient's [...] | | | | | [address] [facility] | | | | | | [place] [address] | | | | | | [phone] | | | | | | | | | | | | Business Development AssistantNaomi | | +--------+ + + + [...]
--- OUTSIDE RECORDS SUMMARY | ~2019-05-17 | XMS | Encounter Summary ---
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[address] | [place], [place] | | | | | disc | [place] | [address] Phone: | | | | | disease, | [address] | [phone] | | | | | lumbar | Phone: | Fax: | | | | | Lumbar | [phone] | [phone] | | | | | foraminal | Fax: | | | | | | stenosis | [phone] | | | | | | Fibromyalgia [...] + + | 01/17/ | Office | [facility] | Fay, | Fibromyalgia | | 2017 | Visit | [facility] | [address] | (Primary Dx); | | | | OP [address] | [facility], | Sacroiliitis (HCC) | | | | [place] | [place] [address] | | | | | [address] | [phone] | | | | | [phone] | | | | | | | Aiyana Fish S, PT | | | | | | [address] | | | | | | [place] | | | | | | [id number] | | | | | | | [...] might be different fro m the original. [facility] PT OP [address] [place] [address] Physical Therapy Daily Treatment Note Date: 01/17/2017 Patient Information Patient Name: Ashly Santiago Date of : 1940 Age: 77 y.o. Encounter Diagnoses Code Name Primary? M79.7 Fibromyalgia Yes M46.1 Sacroiliitis (HCC) Date of Onset: 06/08/2016 Referring Provider: Anna Aponte PA-C Rehab Precautions Flowsheet Row Office Visit from 10/19/2016 in [facility] PT OP Rehab Precautions Precautions None Rehab Learning Style Flowsheet Row Office Visit from 10/19/2016 in [facility] PT OP Learning Style Patient's [...] | | | | | | [place] [address] | | | | | | [phone] | | | | | | | | | | | | Time CheckerNaomi | | +--------+ + + + + [...]
--- OUTSIDE RECORDS SUMMARY | ~2019-05-17 | XMS | Encounter Summary ---
Demographics + + + | Address | [address] [facility] | | | [place] [address] | + + + | Home Phone [...] | Author | [facility] | | | and Azana | + + + | Organization | [facility] | | [...] [place], [place] | | | | | [address] | | + + + + + | Helena Doherty | ECON | [place], | | | | | [place] [address] | | + + + + + Care Team Providers + +------+ + | Care Wallpaper Printer Name | Role | Phone | [...] + + | 10/30/ | Telephone | [facility] | Agusto Pereira MD | Surgery Appointment | | 2017 | | NEUROSURGERY [address] | [address] | | | | | [address] | [place] [address] | | | | | [place] | [phone] | | | | | [address] | | | | | | [phone] | | | +--------+ + + + [...] [place] | | | | | | [place] [address] | | | | | | [phone] | | | | | | | | | | | | Welding Machine Operator Gas Metal ArcNaomi | | +--------+ + + + + documented as of this encounter Visit Diagnoses Not on filedocumented in this encounter"
--- OUTSIDE RECORDS SUMMARY | ~2019-05-17 | XMS | Encounter Summary ---
Demographics + + + | Address | [address] [facility] [facility] | | | [place] [address] | + + + | Home Phone [...] | Author | [facility] | | | and Azana | + + + | Organization | [facility] | [...] [place], [place] | | | | | [address] | | + + + + + | Helena Doherty | ECON | [place], | | | | | [place] [address] | | + + + + + Care Team Providers + +------+ + | Care Benefits Consultant Name | Role | Phone | + +------+ + | Nathan Luevano DO | PCP | | + +------+ + Reason for Visit + + + | Reason | Comments | + + + | Neck Pain | | + + + Evaluate [...] | radiculopath | [address] | | | | y | [address] | [place], [place] | | | | | | [address] | [address] | | | | | | [place], | Phone: | | | | | | [place] [address] | [phone] | | | | | | Phone: | Fax: | | | | | | [phone] | [phone] | | | | | | Fax: | | | | | | | [phone] | | +--------+--------+ + + + + Encounter Details +--------+---------+ + + + | Date | Type | Department | Care Team | Description | +--------+---------+ + + + | 07/03/ | Office | [facility] | Agusto Pereira MD | Cervical | | 2019 | Visit | NEUROSURGERY [address] | radiculopathy | | | | [address] | [place] [address] | (Primary Dx); | | | | [place] | [phone] | Spondylolisthesis of | | | | [address] | | cervical region; | | | | [phone] | Onesimo Oliveira | Foraminal stenosis | | | | | FABIAN Huff [address] | of cervical region | | | | | [address] | | | | | | [place], [place] | | | | | | [address] | | | | | | | [...] + + + | Blood Pressure | 122/68 | 07/03/2018 12:42 PM | | | | | PST | | + + + + + | Pulse | 71 | 07/03/2018 12:42 PM | | | [...] + + | Weight | 86.6 kg (190 lb 14.7 | 07/03/2018 12:42 PM | | | | oz) | PST | | + + + + + | Height | 167.6 cm (5' 6") | 07/03/2018 12:42 PM | | | | | PST | | + + + + + | Body Mass Index | 30.81 | 07/03/2018 12:42 PM | | | | | PST | | + + + + + documented in this encounter Patient Instructions Patient Instructions Amara Adkins, Information Developer - 07/03/2018 12:30 PM PSTIt was gr eat to see you today, we discussed the following in your appointment: 1. Before your surgery is scheduled it will be sent to our case conference review board (pe er review). This group meets every other Sunday and it involves most of the providers th at will assist in taking care of you before surgery, during surgery and after surgery. The goal of the peer review is to make sure you receive great care, allows the providers to discuss the surgery approach and make sure it is the best surgery to move forward with as w ell as anticipate any potential needs after surgery in regards to healing, care and supplies . 2. We discussed the option for an Anterior Cervical Discectomy and Fusion (ACDF). You can research this procedure more by going to: [email or web address]/sunni Click the Treatment Options link on the left column. Then, look for Anterior Cervical Discectomy and Fusion (ACDF). 3. I think that it is okay to try the CBD oil. I think that it is a safe alternative. If it does not work then just stop it. If you are happy with the results that you get when using it then continue it. If you do choose neck surgery it would look something like this: -1 day in the hospital, spend the first month lifting no more than 5lbs, no bending, liftin g above your head, or turning your head. -You would wear a neck brace for at least the first month. You will probably have some dif ficulty swallowing after surgery which will get better over time. How often and how long you have to wear the neck brace is dependent upon your bone strength when we are placing the sc rews. -No driving for the first few weeks to 1 month until you have your strength back. When can turn your head and are no longer taking pain medication then you could drive. -You would need help with things like tying your shoes, putting socks on and what not to pr event you from bending over for that first month at least. -Recovery time would be 1-3 months depending on bone fusion and healing. You will have samia e waxing and waning of symptoms. The pain will vary in intensity and vary from day to day. As time moves on the frequency and intensity of the pain will slowly go away. You may also have some difficulty swallowing after surgery which will get better over time. Electronical ly signed by Amara Adkins, Information Developer at 07/03/2018 1:50 PM PST documented in this encounter Progress Notes Agusto Pereira MD - 07/03/2018 12:30 PM PSTFormatting of this note might be different from t he original. Agusto Pereira MD and Onesimo Oliveira PA-C. [address] [facility], [address] [place] [address] PHONE: FAX: NEUROSURGERY HISTORY AND PHYSICAL EXAMINATION CHIEF COMPLAINT: Chief Complaint Patient presents with Neck Pain HISTORY OF PRESENT ILLNESS: The patient is a 78 y.o. female that was last seen in our offi ce on 11/15/2017 with complains of having burning pain when she lays flat on her back, and p ain that would radiate up her back to her neck radiating to her left arm, as well as continu ed bursitis pain and she also expresses her right knee going numb. She had a L4-5 LAIF, L5-S 1 TLIF for radiculopathy on 02/14/2017. The patient has been working with physiatry and underwent epidural steroid injections in he r cervical spine with no improvement. She had trigger point injections also with no improve ment of her neck discomfort. She returns to our office today to discuss pain that she is having in her neck that is radi ating from the left side of her neck to her right arm. She describes that when she lays down she will have tingling and numbness in bilateral arm, hand, and legs. She cannot relate a dermatomal pattern to her radiating arm and hand numbness. She does notice however that her neck pain will radiate to the posterior portion of her right arm to about the elbow. She ca nnot turn her head without having pain. She is inquiring about CBD oil to see if it would be helpful with her pain/discomfort. She received trigger point injections in December and March 2018 and received no relief. She also had a fluoroscopically-guided C7-T1 interlaminar epidural steroid injection, right of m idline done and states that she did not feel any relief after this treatment eithe r. She has not noted any arm or hand weakness or discoordination. She has pain in her hips and her knees bilaterally that limit her ability to walk. She is limited by pain in her le gs not weakness PAST MEDICAL HISTORY: Past Medical History: Diagnosis [...] Surgical History: Procedure Laterality Date APPENDECTOMY 1959 Exploratory; [facility] BLADDER SUSPENSION 2005 with Rectocele repair; Dr. Reid and Dr. Watkins BUNIONECTOMY 04/10/2007 [facility] Bunion; Dr. Db Berrios CATARACT REMOVAL Bilateral 1996 [facility] CHOLECYSTECTOMY, LAPAROSCOPIC 07/11/2011 Dr. Marquez COLONOSCOPY 2004 [facility] COLONOSCOPY N/A 05/23/2017 Procedure: COLONOSCOPY; Surgeon: Joshua Hilliard MD; Location: [facility] EGD AND COLONOSCOPY 07/06/2009 [facility] [address]. Jc EGD AND COLONOSCOPY 2010 ELECTROCARDIOGRAM 05/19/2009 Dr. Boss ELECTROCARDIOGRAM 08/12/2009 Dr. Radha Stafford; [facility]2011 [facility]; Dr. Marquez FINGER TRIGGER RELEASE Right 05/28/2014 Middle finger; Dr. Longo [place] FINGER TRIGGER RELEASE FOOT NEUROMA SURGERY Left 1998 HEEL SPUR SURGERY Right 1997 Dr. Berrios HYSTERECTOMY, TOTAL ABDOMINAL 1972 [facility] LUMBAR SPINE SURGERY Anterior 02/14/2017 Procedure: L4-5 Lateral Anterior Interbody Fusion, L5-S1 Transforaminal Lumbar Interbody F usion; Surgeon: Agusto Pereira MD; Location: [facility] NASAL SEPTUM SURGERY 06/06/2016 Dr. Lindsey; [facility] PERINEAL SKIN BRIDGE 02/[address] Reid RECTOCELE REPAIR 2006 with bladder suspension; Dr. Reid and Dr. Watkins RETINAL DETACHMENT SURGERY 1997 Dr. Andrade ROTATOR CUFF REPAIR Right 04/20/2015 Ruptured and Tendon repair Dr. Jesus [facility] TONSILLECTOMY [address], [place] CURRENT MEDICATIONS: Current Outpatient Prescriptions Medication Sig [...] Take 1 capsule by mouth nig htly. econazole 1% cream apply to rash twice a day for 2 to 3 weeks 0 folic acid 1 mg tablet Take 1 mg by mouth Daily. hydroxychloroquine (PLAQUENIL) 200 mg tablet Take 200 mg by mouth Daily. losartan-hydrochlorothiazide (HYZAAR) 50-12.5 MG per tablet Take 1 tablet by mouth Lee Ann y. LYSINE PO Take by mouth. L-Lysine 50 mg daily meloxicam (MOBIC) 15 mg tablet TAKE 1 TABLET BY MOUTH ONCE DAILY (DO NOT TAKE WITH OTHE R NSAIDS) 90 tablet 1 methotrexate 2.5 mg tablet Take 10 mg by mouth Once a week. Multiple Vitamins-Minerals (PRESERVISION AREDS PO) Take by mouth. MYRBETRIQ 50 MG ER tablet Take 50 mg by mouth Daily. NALTREXONE HCL PO Take 4.5 mg by mouth Daily. Nutritional Supplements (ESTROVEN PO) Take 1 tablet by mouth Daily. raNITIdine (ZANTAC) 150 mg tablet Take 150 mg by mouth 2 times daily. tolterodine (DETROL LA) 4 MG 24 hr capsule triamcinolone (KENALOG) 0.1% paste apply once daily at bedtime for 5 days as directed 0 No current facility-administered medications for this [...] flashes Escitalopram Nausea Only Esomeprazole Nausea Only Esomeprazole Magnesium Nausea Only Gabapentin [...] abuse Sister Arthritis Sister Gout Sister No Known Problems Child No Known Problems Paternal Grandfather No Known Problems Paternal Grandmother No Known Problems Maternal Grandfather Heart defect Maternal Grandmother enlarged Heart disease Paternal Aunt Lung cancer Maternal Uncle Heart disease Maternal Aunt REVIEW OF SYSTEMS: GENERALLY: No fever, no night sweats, no anemia, no fatigue, no recent profound weight ch anges. EYES: No eye problems, no impaired sight, no use of corrective lenses, no eye injury, no d ouble vision, no transient blindness. EARS, NOSE, AND THROAT: No changes in taste or smell, no hearing difficulty, no ringing in the ears, no ear drainage, no ear injury, no dizziness, no voice changes, no difficulty swa llowing, no significant snoring, no sleep apnea/CPAP, no sinus problems, no major dental wor k. NEUROLOGICALLY: Please see the review of systems discussed above in the history of present illness. In addition, the patient has low back. PSYCHIATRIC: No depression, no difficulty sleeping, no anxiety, no bipolar disorder. CARDIOVASCULAR: No heart attacks, no heart murmur, no heart fluttering, no chest pain, no ankle swelling. LUNG DISEASE: No shortness of breath, no cough, no tuberculosis, no bloody cough, no asthm a, no emphysema/COPD. GASTROINTESTINAL: No bowel disease, no nausea or vomiting, no rectal bleeding, no constipa tion, no fecal stool incontinence, no liver/gallbladder disease, no abdominal pain, no ulcer s. KIDNEY DISEASE: No urinary frequency, no painful or difficult urination, no urinary incont inence, no bladder problems, no impotence. ENDOCRINE: No diabetes, no thyroid disease, no osteopenia or osteoporosis, no breast drain age. SKIN: No breast lumps, no skin disease or skin changes, no rashes/itches. HEMATOLOGIC/LYMPHATIC: No enlarged lymph nodes, no easy or unusual bleeding, no personal h istory of cancer. RHEUMATOLOGIC: No joint pain/arthritis, no rheumatoid arthritis. PHYSICAL EXAMINATION: Blood pressure 122/68, pulse 71, height 1.676 m (5' 6"), weight 86.6 kg (190 lb 14.7 oz), S pO2 98 %, not currently . Body mass index is 30.81 kg/m. GENERAL: Ashly Santiago is in no [...] masses. The patient is not o bese. SPINE: There is no tenderness in the midline of the cervical spine at the C-2, C-3, C-4, C- 5, C-6, C-7 and C-8. The lumbar spine shows there is no tenderness in the midline of the L1, L2, L3, L4, L5, S1 levels. There is significant tenderness over the greater trochanter of bilateral hip. To palpation, there is significant bilateral myofascial tenderness. There is significant pain to provacative testing of the SI joint. There is no major deformity noted. EXTREMITIES: No cyanosis, clubbing, or edema. Distal pulses are palpable. NEUROLOGICAL EXAM: MENTAL STATUS: The patient is awake, alert, and oriented. She follows simple and complex commands. Her speech is fluent, she comprehends speech well, and she repeats well. She has no apparent deficits with short or halfway memory. CRANIAL NERVES: II: Acuity is intact. [...] Intrinsics 5 5 Ulnar Intrinsics 5 5 Warehouse Receiver Strength 5 5 Hip Flexion 5 5 Hip Extension 5 5 Knee Flexion 5 5 Knee Extension 5 5 Dorsiflexion 5 5 Extensor Hallicus Longus 5 5 Plantarflexion 5 5 SENSORY EXAM: Sensory exam shows no diminished sensation to light touch or pain throughout the upper and lower extremities. REFLEXES: (2 OR 2+ IS NORMAL) REFLEX: RIGHT LEFT BICEPS 3+ 3+ BRACHIORADIALIS 3+ 3+ TRICEPS 3+ 3+ PATELLAR 3+ 3+ ACHILLES 2+ 2+ DORANTES'S ABSENT ABSENT PLANTAR DOWNGOING DOWNGOING GAIT: Gait is antalgic. TEST AND RADIOGRAPHIC REVIEW: The patient's imaging was reviewed in detail with the patient today during the visit. The Cervical MRI from 05/01/2018 shows severe stenosis at C5-7 with cord compression at both lev els. Cervical x-rays from 09/07/2017 shows C3-4 mild subluxation. ASSESSMENT: Outpatient Morphine Equivalent Daily Dose (MEDD) None NEUROSURGICAL DIAGNOSES: Encounter Diagnoses Name Primary? Cervical radiculopathy Yes Spondylolisthesis of cervical region Foraminal stenosis of cervical region GENERAL DIAGNOSES: Past Medical History: Diagnosis Date [...] was a pleasure seeing this patient and assessin g her neurologic problems. 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 The patient has progressi ve symptoms despite non-operative measures. We had a lengthy discussion with the patient about her options for care including surgical and non-surgical options. In discussing the surgical options for the neck, we discussed in detail the patient's optio ns for an anterior cervical disectomy and fusion at C3-7 vs. C3-5. Based on her bone qualit y, age, and symptoms, I recommended the latter over the former as there will be a higher yanci nce of success. The patient understands that in most instances [...] her with the best possible outcome. I recommend and would prescribe a cervical collar before surgery to improve her stability n ow to support her weak muscles and to reduce pain by restricting mobility. For multiple (more than 1 level fusions), I recommend the use of a bone growth stimulator p ostoperatively. This is to improve the probability and rate of fusion. The patient would like to be considered for surgery as discussed and would like us to seek authorization and clearance for the operation. We will be proceeding with the back operatio n as discussed.. I, Onesimo Oliveira PA-C, personally performed the services described in this documentation , as scribed by MICHELLE Gee in my presence, and it is both accurate and comp lete. I, Agusto Pereira MD. personally performed the services described in this documentation, as scribed by CHAI Rojas in my presence, and it is both accurate and complete. ELECTRONICALLY SIGNED BY: Agusto Pereira MD, and Onesimo Oliveira PA-C. 07/03/2018 13:55 Portions of this report were transcribed using [email or web address] voice recognition software. A lthough effort was made in correcting the errors; grammatical and sound alike errors may sti ll be present. documented in this encou nter Plan of [...] | | | | | | [place] [address] | | | | | | [phone] | | | | | | | | | | | | External Grinder Tool[employer]omi | | +--------+ + + + + [...]
--- OUTSIDE RECORDS SUMMARY | ~2019-05-17 | XMS | Encounter Summary ---
Demographics + + + | Address | [address] | | | [place] [address] | + + + | Home Phone [...] Team Providers + +------+ + | Care Employee Welfare Manager Name | Role | Phone | + +------+ + | JhonyosephNathan | PCP | | + +------+ + Reason for Referral Consult to [place] (Routine) + +--------+ + + + + | Status | Reason | Specialty | Diagnoses / | Referred By | Referred To | | | | | Procedures | Contact | Contact | + +--------+ + + + + | Authorized | | Neurological | Diagnoses | Agusto Pereira | Lucas | | | | Surgery | Cervical | MD [address] | Neurosurgery | | | | | spondylosis | [address] | [address] | | | | | with | [address] | [address] | | | | | radiculopath | [place], | [address] | | | | | y Cervical | [place] [address] | [place], [place] | | | | | radiculopath | Phone: | [phone] | | | | | y Cervical | [phone] | Phone: | | | | | subluxation, | | [phone] | | | | | initial | | Fax: | | | | | encounter | | [phone] | | | | | DDD | | | | | | | (degenerativ | | | | | | | e disc | | | | | | | disease), | | | | | | | cervical | | | | | | | Foraminal | | | | | | | stenosis of | | | | | | | cervical | | | | | | | region | | | | | | | Procedures | | | | | | | REQUEST TO | | | | | | | SURGERY | | | | | | | AGRICULTURAL AND FORESTRY SUPERVISOR | | | | | | | CT NECK | | | | | | | SPINE | | | | | | | FUSE&REM | | | | | | | ADDL CT | | | | | | | ADDL NECK | | | | | | | SPINE FUSION | | | | | | | CT INSERT | | | | | | | VERT FIX | | | | | | | DEV,ANT,2-3 | | | | | | | SGMTS CT | | | | | | | INSERT | | | | | | | INTERBODY | | | | | | | BIOMECH | | | | | | | DEV,TO | | | | | | | INTERVERTEBR | | | | | | | AL DISC | | | | | | | SPACE CT | | | | | | | SPIN BONE | | | | | | | ALLOGRFT | | | | | | | MORSELIZED | | | | | | | CT SPIN BONE | | | | | | | ALLOGRFT | | | | | | | STRUCTURAL | | | + +--------+ + + + + Reason for Visit + + + | Reason | Comments | + + + | New patient | Cervical | | consultation | | + + + Consultation (Routine) +--------+--------+ + + + + | Status | Reason | Specialty | Diagnoses / | Referred By | Referred To | | | | | Procedures | Contact | Contact | +--------+--------+ + + + + | Closed | | Neurological | | Agusto Pereira | Lucas | | | | Surgery | | [address] | Neurosurgery | | | | | | [address] | [address] | | | | | | [address] | [address] | | | | | | [facility] [address] | | | | | | [place] [address] | [place], [place] | | | | | | Phone: | [phone] | | | | | | [phone] | Phone: | | | | | | | [phone] | | | | | | | Fax: | | | | | | | [phone] | +--------+--------+ + + + + Encounter Details +--------+---------+ + + + | Date | Type | Department | Care Team | Description | +--------+---------+ + + + | 03/11/ | Office | [facility] | Agusto Pereira MD | Cervical spondylosis | | 2019 | Visit | Neurosurgery at [address] | [address] | with radiculopathy | | | | [address] | [address] | (Primary Dx); | | | | [address] | [place] [address] | Cervical | | | | [place], [place] | [phone] | radiculopathy; | | | | [address] | | Cervical | | | | [phone] | | subluxation, initial | | | [...] | | | | | breath) | +--------+---------+ + + + Social History [...] + documented in this encounter Progress Notes Dorita Ojeda MA - 03/11/2019 11:15 AM PDTReview of Systems Constitutional: Positive for malaise/fatigue and weight loss. HENT: Positive for hearing loss. Eyes: Positive for blurred vision. Wear glasses Respiratory: Positive for cough and shortness of breath. Cardiovascular: Negative. Gastrointestinal: Positive for abdominal pain and heartburn. Bowel incontinence, gastroparesis Genitourinary: Urinary dribbling Musculoskeletal: Joint pain Skin: Negative. Neurological: Positive for tingling and weakness. Numbness, muscle cramps, problems walking, loss of balance Endo/Heme/Allergies: Bruises/bleeds easily. Intolerance to cold, ankle swelling Psychiatric/Behavioral: The patient is nervous/anxious. ONYaAgusto luong MD - 02/23 11:15 AM PDT Agusto Pereira MD [facility] [address] [address] NEUROSURGERY HISTORY AND PHYSICAL EXAMINATION CHIEF COMPLAINT: New patient consultation (Cervical) REFERRING PROVIDER: Agusto Pereira MD HISTORY OF PRESENT ILLNESS: The patient is a 79 y.o. female with the complaint of neck and arm pain symptoms that began several years ago. The patient describes that extension of her neck brings on the pain and it bothers her about every other day. The pain stops at bilateral upper arms. She denies los s in hand strength. The symptoms have been unchanged. She rates the pain as severe. The symptoms are intermitte nt. She describes the pain as sharp, tingling, shooting, aching and tight band. The patient describes arm symptoms that occurs primarily on the right. The arm symptoms acc ount for a minor component as most of the pain is the neck of her symptoms. The arm symptoms are intermittent, and the symptoms travel from the neck into the shoulders. The patient does not report any change in bowel or bladder function recently. Her symptoms improve with rest and changing positions. Her symptoms worsen with standing, sitting, bending and twisting. She has tried PT, Massage, Chiropractic, TENS, Traction, NSAIDS, Injections and Muscle rela xers. The patient is not currently taking nerve medications or opioids. These measures are n o longer helping. PAST MEDICAL HISTORY: Past Medical History: Diagnosis Date Arthropathy, unspecified, site unspecified Endometriosis Fibromyalgia HTN (hypertension), benign IBS (irritable bowel syndrome) Melanoma (HCC) Other general symptoms(780.99) PAST SURGICAL HISTORY: Past Surgical History Procedure Laterality Date Laparotomy 1959 Pr foot/toes surgery proc unlisted Appendectomy 1959 Cataract removal 1996 Hysterectomy 1972 with ovaries age 32 Retinal detachment repair Repair of cystocele and rectocele Bunion surgery Cholecystectomy Rotator cuff repair Tonsillectomy 194 Foot surgery left plantar heel spur removal, x2 Colonoscopy CURRENT MEDICATIONS: Current Outpatient Medications Medication Sig acetaminophen/diphenhydramine (TYLENOL PM EXTRA STRENGTH ORAL) Take by mouth once daily at bedtime. Bifidobacterium infantis (ALIGN ORAL) Take by mouth once daily in the morning. Indicati ons: probiotic cholecalciferol, Vitamin D3, 1,000 unit oral tablet Take 5,000 Units by mouth once nadine y in the evening. cyanocobalamin (VITAMIN B-12) 1,000 mcg oral tablet Take 1,000 mcg by mouth once daily in the morning. diclofenac 1 % topical gel Apply to affected area once daily. emollient combination no.77 (DERMEND TOP) Apply to affected area. Indications: twice we ekly fexofenadine 180 mg oral tablet Take 180 mg by mouth once daily at bedtime. folic acid 0.4 mg oral tablet Take 400 mcg by mouth once daily. hydroxychloroquine (PLAQUENIL) 200 mg oral tablet Take 1 tablet by mouth two times nadine y. losartan-hydrochlorothiazide 100-12.5 mg oral tablet Take 1 tablet by mouth once daily. LYSINE ORAL Take 50 mg by mouth once daily in the morning. magnesium citrate 100 mg oral tablet Take 1 tablet by mouth once daily in the morning. MEDICATION HELP Indications: theraworx foam spray- leg cramps methotrexate 2.5 mg oral tablet Take 2.5 mg by mouth every seven days. miconazole (ZEASORB AF) 2 % topical powder Apply to affected area two times daily. mirabegron (MYRBETRIQ) 50 mg oral tablet extended release 24 hr Take 50 mg by mouth onc e daily. naltrexone 4.5 mg capsule (external compound) Take 4.5 mg by mouth once daily at bedtim e. Compounded medication Indications: disorder characterized by stiff, tender & painful mus cles ranitidine (ZANTAC) 150 mg Oral tablet Take 150 mg by mouth as needed. soy isofla/blk cohosh/mag bark (ESTROVEN ORAL) Take by mouth once daily. trospium 20 mg oral tablet Take 20 mg by mouth two times daily. No current facility-administered medications for this visit. ALLERGIES: Allergies Allergen Reactions Hydromorphone Nausea and Insomnia Morphine Headache Adhesive Tape Rash Bextra [Valdecoxib] Dizziness Cardizem [Diltiazem Hcl] Edema Ankle swelling Celexa [Citalopram Hydrobromide] Nausea Codeine Nausea Cymbalta [Duloxetine] Unknown Hot flashes Imdur [Isosorbide Mononitrate] Headache Lexapro [Escitalopram Oxalate] Nausea Nexium [Esomeprazole Magnesium] Nausea Oxycodone Nausea Tramadol Nausea SOCIAL HISTORY: Social History Tobacco Use Smoking status: Never Smoker Smokeless tobacco: Never Used Substance Use Topics Alcohol use: No Alcohol/week: 0.0 oz Comment: occasionally FAMILY HISTORY: Family History Problem Relation Additional Family History Father Parkinson's Heart Disease Mother Stroke Mother Hypertension Mother Arthritis Sister Hypertension Sister Alcohol abuse Sister REVIEW OF SYSTEMS: Constitutional: Positive for malaise/fatigue and weight loss. HENT: Positive for hearing loss. Eyes: Positive for blurred vision. Wear glasses Respiratory: Positive for cough and shortness of breath. Cardiovascular: Negative. Gastrointestinal: Positive for abdominal pain and heartburn. Bowel incontinence, gastroparesis Genitourinary: Urinary dribbling Musculoskeletal: Joint pain Skin: Negative. Neurological: Positive for tingling and weakness. Numbness, muscle cramps, problems walking, loss of balance Endo/Heme/Allergies: Bruises/bleeds easily. Intolerance to cold, ankle swelling Psychiatric/Behavioral: The patient is nervous/anxious. PHYSICAL EXAMINATION: Blood pressure 162/79, pulse 75, temperature 36.4 C (97.6 F), height 1.676 m (5' 6"), w eight 78 kg (171 lb 15.3 oz), SpO2 94 %. Body mass index is 27.75 kg/m. GENERAL: Ashly Santiago is in no acute distress with unlabored respirations. The patient wright s not appear uncomfortable throughout the exam today. [...] is not o bese. SPINE: There is tenderness in the midline of the cervical spine at the C5-7 level(s). Range of motion of the neck is not limited. Rotation does not cause symptoms to radiate into either arm. Extension of the neck does cause severe discomfort. There is no tenderness of there thoracic or lumbar spine. There is no major deformity noted. EXTREMITIES: No cyanosis, clubbing, or edema. Distal pulses are palpable. NEUROLOGICAL EXAM: MENTAL STATUS: The patient is awake, alert, and oriented. She follows simple and complex commands. Her speech is fluent, she comprehends speech well, and she repeats well. She has no apparent deficits with short or retirement memory. CRANIAL NERVES: II: Acuity is intact. [...] Intrinsics 5 5 Ulnar Intrinsics 5 5 Railroad Engineer Strength 5 5 Hip Flexion 5 5 Hip Extension 5 5 Knee Flexion 5 5 Knee Extension 5 5 Dorsiflexion 5 5 Extensor Hallicus Longus 5 5 Plantarflexion 5 5 SENSORY EXAM: Sensory exam shows no diminished sensation to light touch or pain throughout the upper and lower extremities. REFLEXES: (2 OR 2+ IS NORMAL) REFLEX: RIGHT LEFT BICEPS 2 2 BRACHIORADIALIS 2 2 TRICEPS 2 2 PATELLAR 2 2 ACHILLES 2 2 DORANTES'S Absent Absent PLANTAR Down Down GAIT: Gait is steady. TEST AND RADIOGRAPHIC REVIEW: The patient's imaging was reviewed in detail with the patient today during the visit. The M RI from 2018 shows C5-7 and C6-7 degenerative disc disease with canal and foraminal stenosis . C5-6 has worst DDD than C6-7 but both are fairly advanced with spondylitic bony spurs at both levels. Cervical x-rays show mild subluxation at C3-4 on flexion extension views. ASSESSMENT: NEUROSURGICAL DIAGNOSES: 1. Cervical spondylosis with radiculopathy 2. Cervical radiculopathy 3. Cervical subluxation, initial encounter 4. DDD (degenerative disc disease), cervical 5. Foraminal stenosis of cervical region 6. S/P lumbar fusion GENERAL DIAGNOSES: Past Medical History: Diagnosis Date Arthropathy, unspecified, site unspecified Endometriosis Fibromyalgia HTN (hypertension), benign IBS (irritable bowel syndrome) Melanoma (HCC) Other general symptoms(780.99) PLAN: Ashly Santiago presented today, and it was a pleasure seeing this patient and assessing her neurologic problems. The patient has neck pain radiating into bilateral shoulders and upper arms. The patient quach s stable symptoms. I had a lengthy discussion with the patient about her options for care including surgical a nd non-surgical options. In discussing the surgical options, we discussed in detail the patient's options for an ant erior cervical disectomy and fusion at C5-7. We answered a number of questions about surger y and the different available techniques. The patient understands that in most instances the recovery from surgery can be lengthy and sometimes difficult. We discussed the risks, alternatives, and benefits to surgical intervention with Ms. Santiago . These risks included but were not limited to , stroke, heart attack, numbness, weakn ess, paralysis, failure of fusion, failure of hardware, subsidence, adjacent segment degener ation, cerebrospinal fluid leak, bleeding, infection, injury to surrounding tissues and orga ns, injury from positioning, injury to the nerves, difficulty with breathing, difficulty wit h swallowing, difficulty with voice change, and need [...] seek authorization and clearance for the operation. I am Abhijit Wu functioning as a scribe for Agusto Pereira MD at 9:46 AM on 03/11/2019. I have reviewed and verified the above scribed note of my visit with this patient as record ed by Abhijit Wu. Agusto Pereira MD [facility] NEUROSURGERY AT [address] [place] [address] [phone] documented in this encount er Plan of Treatment + +---------+--------+ + + | Name | Type | Priori | Associated Diagnoses | Order Schedule | | | | ty | | | + +---------+--------+ + + | CBC, WITH | Lab | Routin | SOB (shortness of | Expected: 03/11/2019 | | DIFFERENTIAL | | e | breath) | (Approximate), | | | | | | Expires: 04/10/2020 | + +---------+--------+ + + | COMPLETE METABOLIC | Lab | Routin | SOB (shortness of | Expected: 03/11/2019 | | SET | | e | breath) | (Approximate), | | (NA,K,CL,CO2,BUN,CRE | | | | Expires: 04/10/2020 | | AT,GLUC,CA,AST,ALT,B | | | | | | MEDINA TOTAL,ALK | | | | | | PHOS,ALB,PROT TOTAL) | | | | | + +---------+--------+ + + | EKG, ADULT - TUALITY | ECG | Routin | SOB (shortness of | Ordered: 03/11/2019 | | ONLY | | e | breath) | | + +---------+--------+ + + | X-RAY CHEST 2 VIEW | Imaging | Routin | SOB (shortness of | Expected: | | | | e | breath) | 03/11/2019, Expires: | | | | | | 04/10/2020 | + +---------+--------+ + + documented as of this encounter Visit Diagnoses + + | Diagnosis | + + | Cervical spondylosis with radiculopathy - Primary Cervical spondylosis with | | myelopathy | + + | Cervical radiculopathy Brachial neuritis or radiculitis nos | + + | Cervical subluxation, initial encounter | + + | DDD (degenerative disc disease), cervical Degeneration of cervical intervertebral | | disc | + + | Foraminal stenosis of cervical region Spinal stenosis in cervical region | + + | S/P lumbar fusion Arthrodesis status | + + | SOB (shortness of breath) Shortness of breath | + + documented in this encounter
--- OUTSIDE RECORDS SUMMARY | ~2019-05-17 | XMS | Encounter Summary ---
Demographics + + + | Address | [address] | | | [place] [address] | + + + | Home Phone | | + + + | Preferred Language | Unknown | + + + | Marital Status | | + + + | Samaritan Affiliation | 1077 | + + + | Race | Unknown | + + + | Ethnic Group | Unknown | + + + Author + + + | Author | [facility] | | | and [place] | + + + | Organization | [facility] | | | and [place] | + + + | Address | Unknown | + + + | Phone | Unavailable | + + + Support + + + + + | Name | Relationship | Address | Phone | + + + + + | Alon Santiago | KATERIN | [address] | | | | | [place], [place] | | | | | [address] | | + + + + + | Helena Doherty | ECON | [place], | | | | | [place] [address] | | + + + + + Care Team Providers + +------+ + | Care Automatic Transmission Mechanic Name | Role | Phone | [...] unspecified | [address] | [address], | | | | | Procedures | Oni Velasquez | [address] | | | | | Office | [address] | [place], | | | | | Visit | [place], | [place] [address] | | | | | | [place] | Phone: | | | | | | [address] | [phone] | | | | | | Phone: | Fax: | | | | | | [phone] | [phone] | | | | | | Fax: | | | | | | | [phone] | | +--------+--------+ + + + + Encounter Details +--------+---------+ + + + | Date | Type | Department | Care Team | Description | +--------+---------+ + + + | 05/09/ | Office | [facility] | Joshua Hilliard MD | Functional diarrhea | | 2017 | Visit | GASTROENTEROLOGY | [address] | (Primary Dx) | | | | [address] [facility] | [address] [place] | | | | | [address] [place], [place] | [address] | | | | | [address] | | | | | | [phone] | | | +--------+---------+ + + + [...] 2019 | Encounter | | [address] [facility] | | | | | | [address] [facility] | | | | | | [place] [address] | | | | | | [phone] | | | | | | | | | | | | Engineering Equipment Operator, [facility] | | +--------+ + + + + documented as of this encounter Visit Diagnoses + + | Diagnosis | + + | Functional diarrhea - Primary | + + documented in this encounter
--- OUTSIDE RECORDS SUMMARY | ~2019-05-17 | XMS | Encounter Summary ---
Demographics + + + | Address | [address] | | | [place] [address] | + + + | Home Phone [...] | [facility] | | | and [place] | + + + | Organization | [facility] | | | and [place] [...] [place], [place] | | | | | [address] | | + + + + + | Helena Doherty | ECON | [place], | | | | | [place] [address] | | + + + + + Care Team Providers + +------+ + | Care Sales Representative Consultant Name | Role | Phone | + +------+ + | Nathan Luevano DO | PCP | | + +------+ + Reason for Visit + + + | Reason | Comments | + + + | Post-op Question | | + + + | Coordination Of Care | GI; PCP | + + + Encounter Details +--------+ + + + + | Date | Type | Department | Care Team | Description | +--------+ + + + + | 04/10/ | Telephone | [facility] | Agusto Pereira MD | Post-op Question; | | 2017 | | NEUROSURGERY [address] | [address] | Coordination Of Care | | | | [address] [facility] [address] | [place] [address] | (GI; PCP) | | | | [place] | [phone] | | | | | [address] | | | | | | [phone] | | | +--------+ + + + [...] | | | | | [place] [address] | | | | | | [phone] | | | | | | | | | | | | Type Bar And Segment Assembler, [facility] | | +--------+ + + + + documented as of this encounter Visit Diagnoses Not on filedocumented in this encounter"
--- OUTSIDE RECORDS SUMMARY | ~2019-05-17 | XMS | Encounter Summary ---
Demographics + + + | Address | [address] | | | [place] [address] | + + + | Home Phone [...] Providers + +------+ + | Care Automatic Quilling Machine Operator Name | Role | Phone | + +------+ + | Thee Boss MD | PCP | | + +------+ + Encounter Details +--------+------+ + + + | Date | Type | Department | Care Team | Description | +--------+------+ + + + | 09/08/ | Lab | Laboratory, | | Rheumatoid arthritis | | 2014 | | Specimen Collection | | | | | | at [address] | | | | | | [address] | | | | | | [place], | | | | | | [place] [address] | | | | | | [phone] | | | +--------+------+ + + + [...] CBC AND AUTO DIFF | Routin | 09/08/2014 | Rheumatoid | Results for this | | | e | 11:35 AM | arthritis | procedure are in the | | | | PDT | | results section. | + +--------+ + + + | CBC, WITH | Routin | 09/08/2014 | Rheumatoid | Results for this | | DIFFERENTIAL | e | 11:35 AM | arthritis | procedure are in the | | | | PDT | | results section. | + +--------+ + + + | COMPLETE METABOLIC | Routin | 09/08/2014 | Rheumatoid | Results for this | | SET | e | 11:35 AM | arthritis | procedure are in the | | (NA,K,CL,CO2,BUN,CRE | | PDT | | results section. | | AT,GLUC,CA,AST,ALT,B | | | | | | MEDINA TOTAL,ALK | | | | | | PHOS,ALB,PROT TOTAL) | | | | | + +--------+ + + + documented in this encounter Results CBC AND AUTO DIFF (09/08/2014 11:35 AM PDT) + + + + + [...] + + + | RED CELL | 4.01 | 4.00 - 5.20 | [facility] | | | COUNT | | M/cu mm | LABORATORY | | | | | | SERVICES, | | | | | | CORE | | + + + + + + | HEMOGLOBIN | 12.5 | 12.0 - 16.0 | [facility] | | | | | g/dL | LABORATORY | | | | | | SERVICES, | | | | | | CORE | | + + + + + + | HEMATOCRIT | 38.4 | 36.0 - 46.0 % | [facility] | | | | | | LABORATORY | | | | | | SERVICES, | | | | | | CORE | | + + + + + + | MCV | 95.8 | 80.0 - 96.0 fL | [facility] | | | | | | LABORATORY | | | | | | SERVICES, | | | | | | CORE | | + + + + + + | MCHC | 32.6 | 33.0 - 35.5 | [facility] | | | | | g/dL | LABORATORY | | | | | | SERVICES, | | | | | | CORE | | + + + + + + | RDW SD | 50.1 (H) | 35.1 - 46.3 fL | [facility] | | | | | | LABORATORY | | | | | | SERVICES, | | | | | | CORE | | + + + + + + | PLATELET | 274 | 150 - 400 K/cu | [facility] | | | COUNT | | mm | LABORATORY | | | | | | SERVICES, | | | | | | CORE | | + + + + + + | MPV | 10.6 | 9.7 - 12.3 fL | [facility] [...] + + + + | NEUTROPHIL | 74.7 (H) | 50.0 - 70.0 % | [facility] | | | % | | | LABORATORY | | | | | | SERVICES, | | | | | | CORE | | + + + + + + | LYMPHOCYTE | 16.0 (L) | 18.0 - 42.0 % | [facility] | | | % | | | LABORATORY | | | | | | SERVICES, | | | | | | CORE | | + + + + + + | MONOCYTE % | 7.0 | 3.5 - 9.0 % | [facility] | | | | | | LABORATORY | | | | | | SERVICES, | | | | | | CORE | | + + + + + + | EOS % | 1.5 | 1.0 - 3.0 % | [facility] | | | | | | LABORATORY | | | | | | SERVICES, | | | | | | CORE | | + + + + + + | BASO % | 0.4 | 0.0 - 2.0 % | [facility] [...] + + + + | NEUTROPHIL | 6.90 | 1.80 - 7.70 | [facility] | | | # | | K/cu mm | LABORATORY | | | | | | SERVICES, | | | | | | CORE | | + + + + + + | LYMPHOCYTE | 1.48 | 1.00 - 4.80 | [facility] | | | # | | K/cu mm | LABORATORY | | | | | | SERVICES, | | | | | | CORE | | + + + + + + | MONOCYTE # | 0.65 | 0.10 - 0.90 | [facility] | [...] + + + | BASO # | 0.04 | 0.00 - 0.10 | [facility] | [...] | included in the neutrophil count. | SAMIR LEVY | + + + + + + + + | Performing | Address | City/State/Zipcode | Phone Number | | Organization | | | | + + + + + | [facility] | [address] | [place] [address] | | | SAMIR LEVY | [address] [...] | + + + + + | [facility] | [address] | [place] [address] | | | SERVICES, CORE | [address] | | | + + + + + documented in this encounter Visit Diagnoses + + | Diagnosis | + + | Rheumatoid arthritis | + + documented in this encounter"
--- OUTSIDE RECORDS SUMMARY | ~2019-05-17 | XMS | Encounter Summary ---
Demographics + + + | Address | [address] [facility] | | | [place] [address] | + + + | Home Phone | | + + + | Preferred Language | Unknown | + + + | Marital Status | | + + + | Cheondoism Affiliation | 1077 | + + + | Race | Unknown | + + + | Ethnic Group | Unknown | + + + Author + + + | Author | [facility] | | | and Azana | + + + | Organization | [facility] | | | [...] [place], [place] | | | | | [address] | | + + + + + | Helena Doherty | ECON | [place], | | | | | [place] [address] | | + + + + + Care Team Providers + +------+ + | Care Fence Post Driver Name | Role | Phone | + +------+ + | Nathan Luevano DO | PCP | | + +------+ + Reason for Visit + + + | Reason | Comments | + + + | Discharge Without | | | Visit | | + + + Encounter Details +--------+ + + + + | Date | Type | Department | Care Team | Description | +--------+ + + + + | 11/26/ | Documentati | [facility] | Aiyana Fish, | Discharge Without | | 2019 | on | [facility] | PT [address] | Visit | | | | [address] | [place] | | | | | [place] | [address] | | | | | [address] | | | | | | [phone] | | | +--------+ + + + [...] of this encounter Progress Notes Aiyana Fish PT - 11/26/2018 8[facility] [address] [place] [address] Physical Therapy Discharge Note This discharge is associated with the evaluation completed on 04/17/2018. Date: 11/26/2018 Patient Information Patient Name: Ashly Santiago Date of : 1940 Age: 78 y.o. No diagnosis found. Date of Onset: No data was found Referring Provider: Sophia Bush PA-C Total Number of Visits Completed: 22 Total Cancellations: 2 Total No Shows: 0 Patient has elected to have neck surgery. Goal status is unknown at this time. This note se rves as discharge from therapy. The last progress note or the patients initial evaluation will serve as objective status fo r purposes of discharge. Electronically signed by: Aiyana Fish PT, 11/26/2018 8:46 Patient Name: Ashly Santiago/: 1940/ documented in [...] CASE | | | | | | [place] [address] | | | | | | [phone] | | | | | | | | | | | | Opto Mechanical Engineer, Naomi | | +--------+ + + + + documented as of this encounter Visit Diagnoses + + | Diagnosis | + + | Neck pain Cervicalgia | + + | Trochanteric bursitis of both hips Enthesopathy of hip region | + + | Fibromyalgia Mylagia and myositis, unspecified | + + documented in this encounter"
--- OUTSIDE RECORDS SUMMARY | ~2019-05-17 | XMS | Encounter Summary ---
Demographics + + + | Address | [address] [facility] | | | [place] [address] | + + + | Home Phone [...] + | Author | [facility] | | | and Azana | + + + | Organization | [facility] | | | and Azana [...] [place], [place] | | | | | [address] | | + + + + + | Helena Doherty | ECON | [place], | | | | | [place] [address] | | + + + + + Care Team Providers + +------+ + | Care Rail Bonder Name | Role | Phone | + [...] | | disc | [place] | [address] Phone: | | | | | disease, | [address] | [phone] | | | | | lumbar | Phone: | Fax: | | | | | Lumbar | [phone] | [phone] | | | | | foraminal | Fax: | | | | | | stenosis | [phone] | | | | | | Fibromyalgia [...] + + | 11/29/ | Office | [facility] | Fay, | Sacroiliitis (HCC); | | 2016 | Visit | [facility] CTR [facility] PT | FABIAN Castillo [address] | Fibromyalgia | | | | OP [address] | [facility], | | | | | [place] | [place] [address] | | | | | [address] | [phone] | | | | | [phone] | | | | | | | Aiyana Fish S, PT | | | | | | [address] | | | | | | [place] | | | | | | [phone] | | | | | | | [...] be different fro m the original. [facility] PT OP [address] [place] [address] Physical Therapy Daily Treatment Note Date: 11/29/2016 Patient Information Patient Name: Ashly Santiago Date of : 1940 Age: 76 y.o. Encounter Diagnoses Code Name Primary? M46.1 Sacroiliitis (HCC) M79.7 Fibromyalgia Date of Onset: 06/08/2016 Referring Provider: Anna Aponte PA-C Rehab Precautions Flowsheet Row Office Visit from 10/19/[address] [facility] PT OP Rehab Precautions Precautions None Rehab Learning Style Flowsheet Row Office Visit from 10/19/[address] [facility] PT OP Learning Style [...] | | | | | | [place] [address] | | | | | | [phone] | | | | | | | | | | | | Resident Care SpecNaomi | | +--------+ + + + + documented as of this encounter Visit Diagnoses + + | Diagnosis | + + | Sacroiliitis (HCC) Sacroiliitis, not elsewhere classified | + + | Fibromyalgia Mylagia and myositis, unspecified | + + documented in this encounter
--- OUTSIDE RECORDS SUMMARY | ~2019-05-17 | XMS | Encounter Summary ---
Demographics + + + | Address | [address] [facility] | | | [place] [address] | + + + | Home Phone [...] Team Providers + +------+ + | Care Red Cross Executive Director Name | Role | Phone | + +------+ + | Thee Boss MD | PCP | | + +------+ + Encounter Details +--------+ + + + + | Date | Type | Department | Care Team | Description | +--------+ + + + + | 10/27/ | MyChart | Rheumatology at | Tavia Zuniga | Folic Acid | | 2013 | Encounter | Physicians KALA Fung [address] | | | | | [address] | [address] | | | | | Amara Chatman Mailcode: | [place], [place] | | | | | [address] Physician's | [address] | | | | | [facility] Floor | [phone] | | | | | [place], [place] | | | | | | [address] | | | | | | [phone] | | | +--------+ + + + [...]
--- OUTSIDE RECORDS SUMMARY | ~2019-05-17 | XMS | Encounter Summary ---
Demographics + + + | Address | [address] [facility] | | | [place] [address] | + + + | Home Phone [...] Team Providers + +------+ + | Care Beating Machine Operator Name | Role | Phone | + +------+ + | Thee Boss MD | PCP | | + +------+ + Encounter Details +--------+ + + + + | Date | Type | Department | Care Team | Description | +--------+ + + + + | 05/06/ | Hospital | Diagnostic | | | | 2012 | Encounter | Radiology at [facility] | | | | | | [address] | | | | | | Amara Chatman Mailcode: | | | | | | [address] Physician's | | | | | | [place], | | | | | | [place] [address] | | | | | | [phone] | | | +--------+ + + + [...] | | + +---------+ + + | [facility] DEPARTMENT OF | | | | | RADIOLOGY | | | | + +---------+ + + documented in this encounter Visit Diagnoses + + | Diagnosis | + + | Joint pain Pain in joint, site unspecified | + + documented in this encounter"
--- OUTSIDE RECORDS SUMMARY | ~2019-05-17 | XMS | Encounter Summary ---
Demographics + + + | Address | [address] [facility] | | | [place] [address] | + + + | Home Phone [...] | [facility] | | | and zAana | + + + | Organization | [facility] | | | and Azana | [...] [place], [place] | | | | | [address] | | + + + + + | Helena Doherty | ECON | [place], | | | | | [place] [address] | | + + + + + Care Team Providers + +------+ + | Care Table Games Manager Name | Role | Phone | [...] | +--------+ + + + + | 01/08/ | Telephone | [facility] | Agusto ePreira MD | Letter | | 2017 | | NEUROSURGERY [address] | [address] | | | | | [address] | [place] [address] | | | | | [place] | [phone] | | | | | [address] | | | | | | [phone] | | | +--------+ + + + [...] [place] | | | | | | [place] [address] | | | | | | [phone] | | | | | | | | | | | | Suction Plate Roller Hand, [facility] | | +--------+ + + + + documented as of this encounter Visit Diagnoses Not on filedocumented in this encounter"
--- OUTSIDE RECORDS SUMMARY | ~2019-05-17 | XMS | Encounter Summary ---
Demographics + + + | Address | [address] [facility] | | | [place] [address] | + + + | Home Phone [...] + + | Author | [facility] | | | and Azana | + + + | Organization | [facility] | | | and [...] [place], [place] | | | | | [address] | | + + + + + | Helena Doherty | ECON | [place], | | | | | [place] [address] | | + + + + + Care Team Providers + +------+ + | Care Ui Software Developer Name | Role | Phone | + +------+ + | Nathan Luevano DO | PCP | | + +------+ + Reason for Visit + + + | Reason | Comments | + + + | Neurosurgery | Cancel Appt; 9M Post OP SX: 02/14/17 L4-5 LAIF, L5-S1 TLIF/ X-rays | | Appointment | prior @[facility] | + + + Encounter Details +--------+ [...] | | [address] | [place] [address] | Appt; 9M Post OP SX: | | | | [place] | [phone] | 02/14/17 L4-5 LAIF, | | | | [address] | | L5-S1 TLIF/ X-rays | | | | [phone] | | prior @[facility]) | +--------+ + + + + Social [...] 2018 | Encounter | | [address] [facility] | | | | | | [address] [place] | | | | | | [place] [address] | | | | | | [phone] | | | | | | | | | | | | Land EconomistNaomi | | +--------+ + + + + documented as of this encounter Visit Diagnoses Not on filedocumented in this encounter"
--- OUTSIDE RECORDS SUMMARY | ~2019-05-17 | XMS | Encounter Summary ---
Demographics + + + | Address | [address] [facility] | | | [place] [address] | + + + | Home Phone | | + + + | Preferred Language | Unknown | + + + | Marital Status | | + + + | Hoahaoism Affiliation | 1077 | + + + | Race | Unknown | + + + | Ethnic Group | Unknown | + + + Author + + + | Author | [facility] | | | and Azana | + + + | Organization | [facility] | | | and Azana [...] [place], [place] | | | | | [address] | | + + + + + | Helena Doherty | ECON | [place], | | | | | [place] [address] | | + + + + + Care Team Providers + +------+ + | Care Aircraft Instrument Tester Name | Role | Phone | [...] | SR | | | | | [phone] | | | +--------+ + + + [...] | | | | | | [place] [address] | | | | | | [phone] | | | | | | | | | | | | Quality Tester, Ws | | +--------+ + + + [...]
--- OUTSIDE RECORDS SUMMARY | ~2019-05-17 | XMS | Encounter Summary ---
Demographics + + + | Address | [address] [facility] | | | [place] [address] | + + + | Home Phone [...] Team Providers + +------+ + | Care Molybdenum Steamer Operator Name | Role | Phone | [...]
--- OUTSIDE RECORDS SUMMARY | ~2019-05-17 | XMS | Encounter Summary ---
Demographics + + + | Address | [address] [facility] | | | [place] [address] | + + + | Home Phone [...] + | Author | [facility] | | | and Azana | + + + | Organization | [facility] | | [...] [place], [place] | | | | | [address] | | + + + + + | Helena Doherty | ECON | [place], | | | | | [place] [address] | | + + + + + Care Team Providers + +------+ + | Care Printed Circuit Board Designer Name | Role | Phone | + [...] | | | | | | | MA | | | | | | | COLONOSCOPY | | | | | | | FLX DX | | | | | | | W/COLLJ SPEC | | | | | | | WHEN PFRMD | | | | | | | MA | | | | | | | COLONOSCOPY | | | | | | | W/BIOPSY | | | | | | | SINGLE/MULTI | | | | | | | PLE MA | | | | | | | COLSC FLX | | | | | | | W/RMVL OF | | | | | | | TUMOR POLYP | | | | | | | LESION SNARE | | | | | | | TQ MA | | | | | | [...] + + | 05/23/ | Surgery | [facility] | Joshua Hilliard MD | COLONOSCOPY | | 2017 | | MED CTR MP INTRA OP | [address], [place] | | | | | [address] | [address] [place] | | | | | [place], [place] | [address] | | | | | [address] | | | | | | [phone] | | | +--------+---------+ + + + [...] | | | | | [address] [facility] | | | | | | [place] [address] | | | | | | [phone] | | | | | | | | | | | | Tight Rope Walker, [place] | | +--------+ + + + [...] 05/23/2017 | PROVATION | | 12:52 PMMRN: [id number] #: [id number] of : | | | 1940Admit Type: AmbulatoryAge: 77Room: [facility] 01Gender: FemaleNote | | | Status: FinalizedAttending MD: Joshua Hilliard , MDProcedure: | | | ColonoscopyIndications: Clinically significant diarrhea | | | of unexplained origin, Change in bowel | | | habitsProviders: Joshua Hilliard MD, Mary Abraham | | | ILIR Wahl, Wendy Szymanski, | | | Publicity Writer, Phu Manning MD (Anesthesia | | | [...] | | | the anesthesiologist and the lawn technician in the endoscopy suite. | | [...] Scope In: 1:57:41 PMScope Out: 2:25:20 PM [facility]. | | | [facility], [address] [place] [address] | | | [phone] | | | - No aspirin, ibuprofen, [...] |Scope Out: 2:25:20 PM | | | [facility]. [facility], [address] [place] [address] | | | [address] | | + + -+ + +---------+ [...] Negative for high grade dysplasia and malignancy. TJB:[facility]:C2NR | | | GROSS DESCRIPTION: Received in [...] the requisition are five | | | ekdowl-vlwg-urn tissue fragments measuring from 0.25-0.4 cm, | | | submitted, all in (B1). C. Received in formalin labeled "Ashly | | | Santiago" and "sigmoid polyp" on the requisition is a 0.3 x 0.2 x 0.2 cm | | | pink-mogran tissue fragment, submitted, all into (C1). ka:CLR:[facility] | | | PERFORMING LABORATORY: Tissue processing and slide preparation were | | | performed by [facility], [address], [facility] | | | [place] [address] (Human Resources Designate: Albaro Eric M.D. CLIA#: | | | [id number]). Professional interpretation was performed by [facility] | | | [facility], [address], [place] [address] | | | (Human Resources Designate: Albaro Eric M.D.; CLIA#: [id number]). | | | Diagnostician: Alf Lobo MD Pathologist Electronically | | | Signed 05/25/2017 | | + + + + +---------+ + + | Performing | Address | City/State[facility] | Phone Number | | Organization [...]
--- OUTSIDE RECORDS SUMMARY | ~2019-05-17 | XMS | Encounter Summary ---
Demographics + + + | Address | [address] [facility] | | | [place] [address] | + + + | Home Phone [...] | Author | [facility] | | | and Azana | + + + | Organization | [facility] | | | and Azana [...] [place], [place] | | | | | [address] | | + + + + + | Helena Doherty | ECON | [place], | | | | | [place] [address] | | + + + + + Care Team Providers + +------+ + | Care Hogshead Hand Name | Role | Phone | [...] | | | bursitis, | Ave | [address] Phone: | | | | | left hip | [place], | [phone] | | | | | M70.61 | [place] | Fax: | | | | | (ICD-10-CM) | [address] | [phone] | | | | | - | Phone: | | | | | | Trochanteric | [phone] | | | | | | bursitis, | Fax: | | | | | | right hip | [phone] | | | | | | M79.7 [...] Description | +--------+---------+ + + + | 07/22/ | Office | [facility] [place] | [place], | Fibromyalgia | | 2019 | Visit | [facility] | Sophia Kingsley PA-C | (Primary Dx); Neck | | | | [address] | [address] | pain; Trochanteric | | | | [place] | [place], [place] | bursitis of both | | | | [address] | [address] | hips | | | | [phone] | [phone] | | | | | | | [...] encounter Progress Notes Aiyana Fish, PT - 07/22/2018 1:30 PM PSTFormatting of this note might be different fro m the original. [facility] [address] [place] [address] Physical Therapy Daily Treatment Note Date: 07/22/2018 Patient Information Patient Name: Ashly Santiago Date of : 1940 Age: 78 y.o. Encounter Diagnoses Code Name Primary? M79.7 Fibromyalgia Yes M54.2 Neck pain M70.61, M70.62 Trochanteric bursitis of both hips Date of Onset: 04/10/2018 Referring Provider: Sophia Bush PA-C Rehab Precautions Office Visit from 04/17/2018 in [facility] TH[facility] PT OP Rehab Precautions Precautions None Rehab Learning Style Office Visit from 04/17/2018 in [facility] PT OP Office Visit fro m 10/19/2016 in [facility] PT OP Learning Style Patient's Optimum Learning Style listening, reading, observation, performance of task lis tening, reading, observation, performance of task Start Time: 1330 Stop time: 1420 Duration: 50 minutes Timed Treatment Codes: 50 minutes # of PT Visits to Date: 12 Subjective: Pt reports that she has chronic diarrhea for the past couple of weeks and will have this ch ecked out with her Doctor. Pain Assessment: Pain Rating Pre Assessment: 4 Pain Rating Post Assessment: 3 Location: left hip and low back Objective: Manual Treatment: Myofascial Release to multiple areas: Dural tube mobilization, right hip , upper and mid thoracic strain pattern and cervical spine with DT traction. Assessment: Good response to treatment. Fascial release resulted in improved mobility in the mid thora cic fascial layers and lower pain level reported to be 3/10 following the session. Plan: Continue with manual therapy and development of home program. Progress with gentle yoga ro utine if appropriate Electronically signed by: Aiyana Fish PT, 07/22/2018 14:25 Patient Name: Ashly Santiago/: 1940/ documented in [...] | | | | [address] [facility] | | | | | | [place] [address] | | | | | | [phone] | | | | | | | | | | | | Liquefaction And Regasification Helper, Wscherise | | +--------+ + + + [...]
--- OUTSIDE RECORDS SUMMARY | ~2019-05-17 | XMS | Encounter Summary ---
Demographics + + + | Address | [address] [facility] | | | [place] [address] | + + + | Home Phone [...] Team Providers + +------+ + | Care Survey Cad Technician Name | Role | Phone | + +------+ + | Nathan Luevano DO | PCP | | + +------+ + Encounter Details +--------+ + + + + | Date | Type | Department | Care Team | Description | +--------+ + + + + | 04/09/ | MyChart | [facility] | Agusto Peerira MD | Authorization of | | 2019 | Encounter | Neurosurgery at [address]th | [address] | Services notice from | | | | [address] | [address] | [employer] 03/21/19 | | | | [address] | [place] [address] | | | | | [place], [place] | [phone] | | | | | [address] | | | | | | [phone] | | | +--------+ + + + [...]
--- OUTSIDE RECORDS SUMMARY | ~2019-05-17 | XMS | Encounter Summary ---
Demographics + + + | Address | [address] [facility] | | | [place] [address] | + + + | Home Phone [...] | Author | [facility] | | | and Azana | + + + | Organization | [facility] | | | and Azana | + + + | Address | Unknown | + + + | Phone | Unavailable | + + + Support + + + + + | Name | Relationship | Address | Phone | + + + + + | Aoln Santiago | KATERIN | [address] | | | | | [place], [place] | | | | | [address] | | + + + + + | Helena Doherty | ECON | [place], | | | | | [place] [address] | | + + + + + Care Team Providers + +------+ + | Care Block Piler Name | Role | Phone | + [...] Description | +--------+--------+ + + + | 09/13/ | Refill | [facility] [place] | Andrew Miranda, | Medication Refill | | 2019 | | PHYSIATRY [address] | PA-C [address] | | | | | [place], | [address] [place] | | | | | [place] [address] | [place] [address] | | | | | [phone] | [phone] | | | | | | | [...] | | | | | [place] [address] | | | | | | [phone] | | | | | | | | | | | | Produce Wrapper, [facility] | | +--------+ + + + + documented as of this encounter Visit Diagnoses Not on filedocumented in this encounter"
--- OUTSIDE RECORDS SUMMARY | ~2019-05-17 | XMS | Encounter Summary ---
Demographics + + + | Address | [address] [facility] | | | [place] [address] | + + + | Home Phone [...] | Author | [facility] | | | and Azana | + + + | Organization | [facility] | | [...] [place], [place] | | | | | [address] | | + + + + + | Helena Doherty | ECON | [place], | | | | | [place] [address] | | + + + + + Care Team Providers + +------+ + | Care Humanities And Languages Professor Name | Role | Phone | [...] | | [address] | [place] [address] | | | | | [place] | [phone] | | | | | [address] | | | | | | [phone] | | | +--------+ + + + [...] DAIANAA | | | | | | [place] [address] | | | | | | [phone] | | | | | | | | | | | | Director Hospice Operations, [facility] | | +--------+ + + + + documented as of this encounter Visit Diagnoses Not on filedocumented in this encounter"
--- OUTSIDE RECORDS SUMMARY | ~2019-05-17 | XMS | Encounter Summary ---
Demographics + + + | Address | [address] [facility] | | | [place] [address] | + + + | Home Phone | | + + + | Preferred Language | Unknown | + + + | Marital Status | | + + + | Alevism Affiliation | Unknown | + + + | Race | White | + + + | Ethnic Group | Not or | + + + Author + + + | Author | [facility] | + + + | Organization | [facility] | + + + | Address | Unknown | + + + | Phone | Unavailable | + + + Support + + +---------+ + | Name | Relationship | Address | Phone | + + +---------+ + | Alon Santiago | ECON | Unknown | | + + +---------+ + Care Team Providers + +------+ + | Care Middleware Solutions Architect Name | Role | Phone | [...] | | | | | [place], | | | | | | [place] [address] | | | | | | [phone] | | | +--------+------+ + + + [...] LABORATORY | [address] | [place] [address] | | | SERVICES, CORE | PARK [...] | + + + + + | [facility] | [address] [facility] | [place] [address] | | | SERVICES, CORE | PARK [...] | | | LABORATORY | | | [place] | | | SERVICES, | | | [...] | + + + + + | [facility] | [address] | [place] [address] | | | SERVICES, CORE | [address] | | | + + + + + documented in this encounter Visit Diagnoses + + | Diagnosis | + + | Fibromyalgia Mylagia and myositis, unspecified | + + documented in this encounter"
--- OUTSIDE RECORDS SUMMARY | ~2019-05-17 | XMS | Encounter Summary ---
Demographics + + + | Address | [address] [facility] | | | [place] [address] | + + + | Home Phone | | + + + | Preferred Language | Unknown | + + + | Marital Status | | + + + | Muslim Affiliation | Unknown | + + + [...] Team Providers + +------+ + | Care Patternmaker Metal Bench Name | Role | Phone | + +------+ + | Bassem Nathan | PCP | | + +------+ + Encounter Details +--------+ + + + + | Date | Type | Department | Care Team | Description | +--------+ + + + + | 06/19/ | Jordan Man | Rheumatology at | Rosas Lucia MD | | | 2014 | | Physicians [place] | [address] [facility] | | | | | [address] | [address] [place] | | | | | Amara Chatman Mailcode: | [place] [address] | | | | | [address] Physician's | [phone] | | | | | Francy, [facility] Floor | | | | | | [place], [place] | | | | | | [address] | | | | | | [phone] | | | +--------+ + + + [...]
--- OUTSIDE RECORDS SUMMARY | ~2019-05-17 | XMS | Encounter Summary ---
Demographics + + + | Address | [address] [facility] | | | [place] [address] | + + + | Home Phone | | + + + | Preferred Language | Unknown | + + + | Marital Status | | + + + | Mandaen Affiliation | 1077 | + + + | Race | Unknown | + + + | Ethnic Group | Unknown | + + + Author + + + | Author | [facility] | | | and Azana | + + + | Organization | [facility] | | | and [...] [place], [place] | | | | | [address] | | + + + + + | Helena Doherty | ECON | [place], | | | | | [place] [address] | | + + + + + Care Team Providers + +------+ + | Care Venetian Blind Mechanic Name | Role | Phone | [...] | | | bursitis, | Ave | [address] Phone: | | | | | left hip | [place], | [phone] | | | | | M70.61 | [place] | Fax: | | | | | (ICD-10-CM) | [address] | [phone] | | | | | - | Phone: | | | | | | Trochanteric | [phone] | | | | | | bursitis, | Fax: | | | | | | right hip | [phone] | | | | | | M79.7 [...] | | [address] | [address] | pain; Trochanteric | | | | [place] | [place], [place] | bursitis of both | | | | [address] | [address] | hips | | | | [phone] | [phone] | | | | | | | [...] be different fro m the original. [facility] [address] [place] [address] Physical Therapy Daily Treatment Note Date: 07/22/2018 Patient Information Patient Name: Ashly Santiago Date of : 1940 Age: 78 y.o. Encounter Diagnoses Code Name Primary? M79.7 Fibromyalgia Yes M54.2 Neck pain M70.61, M70.62 Trochanteric bursitis of both hips Date of Onset: 04/10/2018 Referring Provider: Sophia Bush PA-C Rehab Precautions Office Visit from 04/17/2018 in [facility] PT OP Rehab Precautions Precautions None Rehab Learning Style Office Visit from 04/17/2018 in [facility] PT OP Office Visit fro m 10/19/2016 in [facility] PT OP Learning Style [...] HOSPITAL | | | | | | [place] [address] | | | | | | [phone] | | | | | | | | | | | | [place] Representative, [place] | | +--------+ + + [...]
--- OUTSIDE RECORDS SUMMARY | ~2019-05-17 | XMS | Encounter Summary ---
Demographics + + + | Address | [address] [facility] | | | [place] [address] | + + + | Home Phone [...] | [facility] | | | and Azana | + + + | Organization | [facility] [...] [place], [place] | | | | | [address] | | + + + + + | Helena Doherty | ECON | [place], | | | | | [place] [address] | | + + + + + Care Team Providers + +------+ + | Care Paste Up Artist Apprentice Name | Role | Phone | + [...] [address] | | | | | [place], | [address] [place] | | | | | [place] [address] | [place] [address] | | | | | [phone] | [phone] | | | | | | | [...] | | | | | [place] [address] | | | | | | [phone] | | | | | | | | | | | | Medical Donation Professional, [facility] | | +--------+ + + + + documented as of this encounter Visit Diagnoses Not on filedocumented in this encounter"
--- OUTSIDE RECORDS SUMMARY | ~2019-05-17 | XMS | Encounter Summary ---
Demographics + + + | Address | [address] [facility] | | | [place] [address] | + + + | Home Phone [...] | Author | [facility] | | | and Azana | + + + | Organization | [facility] | [...] [place], [place] | | | | | [address] | | + + + + + | Helena Doherty | ECON | [place], | | | | | [place] [address] | | + + + + + Care Team Providers + +------+ + | Care Technical Support Assistant Name | Role | Phone | + +------+ + | Thee Boss MD | PCP | | + +------+ + Encounter Details +--------+ + + + + | Date | Type | Department | Care Team | Description | +--------+ + + + + | 11/20/ | Hospital | [facility] | Osman Beth | | | 2012 | Encounter | MED CTR XRAY [address], [address] | | | | | [place] | [place] | | | | | [place] [address] | [address] | | | | | [phone] | | | +--------+ + + + [...] | | | | | | [place] [address] | | | | | | [phone] | | | | | | | | | | | | Assessment ConsultantNaomi | | +--------+ + + + + [...] Performed At | + + + | [facility] Diagnostic Imaging | [place] | | Department [address] [place] [address] | [facility] | | [ rep ct street[address]] [ rep ct [facility] | | st zip] Signed | - IMAGING | | | | | Patient Name: ASLHY ZAVALETA Physician: | | | NANCY : 1940 Age: 72 Sex: F Unit #: [id number] | | | Exam Date: 11/20/12 Location: [facility] | | | Report #: [id number] Page: | | | %(RAD)RES..mtdd.print.filter("pg") of %(RAD) | | | RES..mtdd.print.filter("tpg") | | | | | | Accession Number: [id number] | | | LUMBAR FACET INJECTION, 11/21/2012 [...] Transcribed Date/Time: 11/22/2012 | | | 11:04 Unit Supervisor: <<Signature on | | | File>> | | | Osman Price | | | MD Kirit11/29/12 0818 <Electronically signed by Osman Price | | | Kirit MARROQUIN> Osman Beth MD 11/22/12 0940 | | | Unit Supervisor: MathZeemelecio Dvefikkkpndyx43/31/13 1104 | | | | | + + + + + + + + | Performing | Address | City/State/Zipcode | Phone Number | | Organization | | | | + + + + + | NANCY [place] | [address] | [place] | [phone] | | [facility] | | [address] | | | - IMAGING | | | | + + + + + documented in this encounter Visit Diagnoses Not on filedocumented in this encounter
--- OUTSIDE RECORDS SUMMARY | ~2019-05-17 | XMS | Encounter Summary ---
Demographics + + + | Address | [address] [facility] | | | [place] [address] | + + + | Home Phone [...] Author | [facility] | | | and Azana | + + + | Organization | [facility] | | [...] [place], [place] | | | | | [address] | | + + + + + | Helena Doherty | ECON | [place], | | | | | [place] [address] | | + + + + + Care Team Providers + +------+ + | Care Media/Instructional Designer Name | Role | Phone | [...] | | | | | | | RI | | | | | | | COLONOSCOPY | | | | | | | FLX DX | | | | | | | W/COLLJ SPEC | | | | | | | WHEN PFRMD | | | | | | | RI | | | | | | | COLONOSCOPY | | | | | | | W/BIOPSY | | | | | | | SINGLE/MULTI | | | | | | | PLE RI | | | | | | | COLSC FLX | | | | | | | W/RMVL OF | | | | | | | TUMOR POLYP | | | | | | | LESION SNARE | | | | | | | TQ RI | | | | | | | [...] + + | 05/23/ | Anesthesia | [facility] | Phu Manning MD | | | 2017 | Event | MED CTR MP INTRA OP | [address] | | | | | [address] | [place] | | | | | [place], [place] | [address] | | | | | [address] | [phone] | | | | | [phone] | | | +--------+ + + + [...] by Adonis | | eral | Forearm; busc-czk-qmqixv catheter | Bisi Chappell RN | Butch [...] | | | | | [place] [address] | | | | | | [phone] | | | | | | | | | | | | Public Safety Telecommunicator, [facility] | | +--------+ + + + [...]
--- OUTSIDE RECORDS SUMMARY | ~2019-05-17 | XMS | Encounter Summary ---
Demographics + + + | Address | [address] [facility] | | | [place] [address] | + + + | Home Phone [...] + | Author | [facility] | | | and Azana | + + + | Organization | [facility] | [...] [place], [place] | | | | | [address] | | + + + + + | Helena Doherty | ECON | [place], | | | | | [place] [address] | | + + + + + Care Team Providers + +------+ + | Care Clinical Education Assistant Name | Role | Phone | [...] | Trochanteric | [address] | [place], [place] | | | | | bursitis, | Ave | [address] Phone: | | | | | left hip | [place], | [phone] | | | | | M70.61 | [place] | Fax: | | | | | (ICD-10-CM) | [address] | [phone] | | | | | - | Phone: | | | | | | Trochanteric | [phone] | | | | | | bursitis, | Fax: | | | | | | right hip | [phone] | | | | | | M79.7 [...] | hips; Fibromyalgia | | | | [address] | | | | | | [phone] | | | +--------+---------+ + + + [...] be different fro m the original. [facility] [address] [place] [address] Physical Therapy Progress Assessment Date: 10/08/2018 Patient Information Patient Name: Ashly Santiago Date of : 1940 Age: 78 y.o. Encounter Diagnoses Code Name Primary? M54.2 Neck pain Yes M70.61, M70.62 Trochanteric bursitis of both hips M79.7 Fibromyalgia Date of Onset: 04/10/2018 Referring Provider: Sophia Bush PA-C Rehab Precautions Office Visit from 04/17/2018 in [facility] CTR THERAPY PT OP Rehab Precautions Precautions None Rehab Learning Style Office Visit from 04/17/2018 in [facility] THER[facility] PT OP Office Visit fro m 10/19/2016 in [facility] PT OP Learning Style Patient's Optimum Learning Style listening, reading, observation, performance of task lis tening, reading, observation, performance of task Pain Assessment: Pain Rating Pre Assessment: 5 Pain Rating Post Assessment: 4 Location: low back SUBJECTIVE: Ashly Santiago has completed 20 visits for treatment of chronic pain from [facility]. Patient reports improvements with less pain [...] 55 70 65 Hip ROM Flexion: R=105 O=980RP L=30 R=25 ER L= 45 R= 45 [...] From: 10/08/2018 Certification To: 01/07/2019 Treatment Plan/Interventions 23182 - Therapeutic [id number] - Therapeutic [id number] - Manual [id number] - Liza f Care/Home Management Patient and/or [...] up and prepares for her trip to [place] November 09 Electronically signed by: Aiyana Fish [...] | | | | | | [place] [address] | | | | | | [phone] | | | | | | | | | | | | Raw Shellfish PreparerNaomi | | +--------+ + + + + documented as of this encounter Visit Diagnoses + + | Diagnosis | + + | Neck pain - Primary Cervicalgia | + + | Trochanteric bursitis of both hips Enthesopathy of hip region | + + | Fibromyalgia Mylagia and myositis, unspecified | + + documented in this encounter"
--- OUTSIDE RECORDS SUMMARY | ~2019-05-17 | XMS | Encounter Summary ---
Demographics + + + | Address | [address] [facility] | | | [place] [address] | + + + | Home Phone [...] Team Providers + +------+ + | Care Financial Data Analyst Name | Role | Phone | [...] [address] | | | | | | [place], [place] | | | | | | [address] | | | +--------+ + + + [...]
--- OUTSIDE RECORDS SUMMARY | ~2019-05-17 | XMS | Encounter Summary ---
Demographics + + + | Address | [address] [facility] | | | [place] [address] | + + + | Home Phone [...] + + | Author | [facility] | + + + | Organization | [facility] | + + + | Address | Unknown | + + + | Phone | Unavailable | + + + Support + + +---------+ + | Name | Relationship | Address | Phone | + + +---------+ + | Alon Santiago | ECON | Unknown | | + + +---------+ + Care Team Providers + +------+ + | Care Assistant Chief Engineer Name | Role | Phone | [...] | 2012 | | Palmira Sen | [address] [facility] | | | | | [address] | [address] [place], | | | | | Amara Chatman Mailcode: | [place] [address] | | | | | [address]09 Physician's | [phone] | | | | | [address], 4th Floor | | | | | | [place], [place] | | | | | | [address] | | | | | | [phone] | | | +--------+ + + + [...]
--- OUTSIDE RECORDS SUMMARY | ~2019-05-17 | XMS | Encounter Summary ---
Demographics + + + | Address | [address] [facility] | | | [place] [address] | + + + | Home Phone [...] Team Providers + +------+ + | Care Orthopaedic Surgeon Name | Role | Phone | + [...] arthritis(71 | Sophia Kingsley, | [address] [facility] | | | | | 4.0) ([facility]) | [place] [address] | [facility] | | | | | Myalgia and | [address] | [address] [place], | | | | | myositis, | [place], | [place] | | | | | unspecified | [place] [address] | [address] | | | | | | Phone: | Phone: | | | | | | [phone] | [phone] | | | | | | Fax: | Fax: | | | | | | [phone] | [phone] | +--------+--------+ + + + + Encounter Details +--------+---------+ + + + | Date | Type | Department | Care Team | Description | +--------+---------+ + + + | 12/23/ | Office | Rheumatology at | Tavia Zuniga | RA (rheumatoid | | 2013 | Visit | Physicians KALA Fung [address] [facility] | arthritis) ([facility]) | | | | [address] | [address] [place] | (Primary Dx); | | | | Amara Chatman Mailcode: | [place], [place] | Fibromyalgia; [facility] | | | | OP09 Physician's | [address] | arthritis; Encounter | | | | [address], 4th Floor | [phone] | for chronic pain | | | | [place], [place] | | management | | | | [address] | | | | | | [phone] | | | +--------+---------+ + + + [...] (as well as preceding diagnoses). Functional Assessment: [facility] 07/09/2013 09/01/2013 12/23/2013 RAPID 3 6.1 [...] with dermatology. . [facility] [address] [place] [address] Mailcode: Op09 [facility], 4th [facility] [address] documented in th is encounter Plan of [...] + + + + + | [facility] | [address] | [place] [address] | | | SERVICES, CORE | PARK [...]
--- OUTSIDE RECORDS SUMMARY | ~2019-05-17 | XMS | Encounter Summary ---
Demographics + + + | Address | [address] [facility] | | | [place] [address] | + + + | Home Phone | | + + + | Preferred Language | Unknown | + + + | Marital Status | | + + + | Christianity Affiliation | Unknown | + + + | Race | White | + + + | Ethnic Group | Not or | + + + Author + + + | Author | [facility] | + + + | Organization | [facility] | + + + | Address | Unknown | + + + | Phone | Unavailable | + + + Support + + +---------+ + | Name | Relationship | Address | Phone | + + +---------+ + | Alon Santiago | ECON | Unknown | | + + +---------+ + Care Team Providers + +------+ + | Care Health Services Manager Name | Role | Phone | [...] 2013 | Encounter | Physicians Francy | [address] [facility] | | | | | [address] | [address] [place] | | | | | Amara Chatman Mailcode: | [place] [address] | | | | | OP09 Physician's | [phone] | | | | | [address], [address]th Floor | | | | | | [place] | | | | | | [address] | | | | | | [phone] | | | +--------+ + + + [...]
--- OUTSIDE RECORDS SUMMARY | ~2019-05-17 | XMS | Encounter Summary ---
Demographics + + + | Address | [address] [facility] | | | [place] [address] | + + + | Home Phone [...] | Author | [facility] | | | and Azana | + + + | Organization | [facility] | | [...] [place], [place] | | | | | [address] | | + + + + + | Helena Dhoerty | ECON | [place], | | | | | [place] [address] | | + + + + + Care Team Providers + +------+ + | Care Guitar Instructor Name | Role | Phone | [...] [address] | | | | | [phone] | [place] [address] | | +--------+ + + + + [...] | | | | | [place] [address] | | | | | | [phone] | | | | | | | | | | | | Veneer Stacker, [facility] | | +--------+ + + + [...]
--- OUTSIDE RECORDS SUMMARY | ~2019-05-17 | XMS | Encounter Summary ---
Demographics + + + | Address | [address] [facility] | | | [place] [address] | + + + | Home Phone | | + + + | Preferred Language | Unknown | + + + | Marital Status | | + + + | Druze Affiliation | Unknown | + + + [...] Providers + +------+ + | Care Sales Marketing Name | Role | Phone [...] 2013 | Encounter | Palmira Sen | [address] [facility] | | | | | [address] | [address] [place], | | | | | Amara Chatman Mailcode: | [place] [address] | | | | | OP09 Physician's | [phone] | | | | | [address], 4th Floor | | | | | | [place], [place] | | | | | | [address] | | | | | | [phone] | | | +--------+ + + + [...]
--- OUTSIDE RECORDS SUMMARY | ~2019-05-17 | XMS | Encounter Summary ---
Demographics + + + | Address | [address] [facility] | | | [place] [address] | + + + | Home Phone [...] Author | [facility] | | | and Azana | + + + | Organization | [facility] | | | and [...] [place], [place] | | | | | [address] | | + + + + + | Helena Doherty | ECON | [place], | | | | | [place] [address] | | + + + + + Care Team Providers + +------+ + | Care Co Teacher Name | Role | Phone | [...] 50 | | | | | | [place] | | | | | | [address] | | | | | | [phone] | | | +--------+ + + + [...] | | | | | [place] [id number] | | | | | | [phone] | | | | | | | | | | | | Applications Support Lead, [facility] | | +--------+ + + + + documented as of this encounter Visit Diagnoses Not on filedocumented in this encounter"
--- OUTSIDE RECORDS SUMMARY | ~2019-05-17 | XMS | Encounter Summary ---
Demographics + + + | Address | [address] [facility] | | | [place] [address] | + + + | Home Phone | | + + + | Preferred Language | Unknown | + + + | Marital Status | | + + + | Islam Affiliation | Unknown | + + + [...] Providers + +------+ + | Care Office Engineer Name | Role | Phone | + +------+ + | Thee Boss MD | PCP | | + +------+ + Encounter Details +--------+------+ + + + | Date | Type | Department | Care Team | Description | +--------+------+ + + + | 07/09/ | Lab | Laboratory, | | Rheumatoid arthritis | | 2013 | | Specimen Collection | | ([facility]) | | | | at [address] | | | | | | [address] | | | | | | [place], | | | | | | [place] [address] | | | | | | [phone] | | | +--------+------+ + + + [...] CBC AND AUTO DIFF | Routin | 07/09/2013 | Rheumatoid | Results for this | | | e | 12:10 PM | arthritis (HCC) | procedure are in the | | | | PST | | results section. | + +--------+ + + + | CBC, WITH | Routin | 07/09/2013 | Rheumatoid | Results for this | | DIFFERENTIAL | e | 12:10 PM | arthritis (HCC) | procedure are in the | | | | PST | | results section. | + +--------+ + + + | COMPLETE METABOLIC | Routin | 07/09/2013 | Rheumatoid | Results for this | | SET | e | 12:10 PM | arthritis (HCC) | procedure are in the | | (NA,K,CL,CO2,BUN,CRE | | PST | | results section. | | AT,GLUC,CA,AST,ALT,B | | | | | | MEDINA TOTAL,ALK | | | | | | PHOS,ALB,PROT TOTAL) | | | | | + +--------+ + + + | SEDIMENTATION RATE | Routin | 07/09/2013 | Rheumatoid | Results for this | | | e | 12:10 PM | arthritis (HCC) | procedure are in the | | | | PST | | results section. | + +--------+ + + + documented in this encounter Results CBC AND AUTO DIFF (07/09/2013 12:10 PM PST) + + + + + + | Component | Value | Ref Range | Performed | Pathologist | | | | | At | Signature | + + + + + + | WHITE CELL | 11.31 (H) | 4.40 - 11.00 | [facility] | | | COUNT | | K/cu mm | LABORATORY | | | | | | SERVICES, | | | | | | CORE | | + + + + + + | RED CELL | 3.76 (L) | 4.00 - 5.20 | [facility] | | | COUNT | | M/cu mm | LABORATORY | | | | | | SERVICES, | | | | | | CORE | | + + + + + + | HEMOGLOBIN | 11.7 (L) | 12.0 - 16.0 | [facility] | | | | | g/dL | LABORATORY | | | | | | SERVICES, | | | | | | CORE | | + + + + + + | HEMATOCRIT | 36.8 | 36.0 - 46.0 % | [facility] | | | | | | LABORATORY | | | | | | SERVICES, | | | | | | CORE | | + + + + + + | MCV | 97.9 (H) | 80.0 - 96.0 fL | [facility] | | | | | | LABORATORY | | | | | | SERVICES, | | | | | | CORE | | + + + + + + | MCHC | 31.8 (L) | 33.0 - 35.5 | [facility] | | | | | g/dL | LABORATORY | | | | | | SERVICES, | | | | | | CORE | | + + + + + + | RDW SD | 47.9 (H) | 35.1 - 46.3 fL | [facility] | | | | | | LABORATORY | | | | | | SERVICES, | | | | | | CORE | | + + + + + + | PLATELET | 290 | 150 - 400 K/cu | [facility] [...] + + + + | NEUTROPHIL | 67.4 | 50.0 - 70.0 % | [facility] | | | % | | | LABORATORY | | | | | | SERVICES, | | | | | | CORE | | + + + + + + | LYMPHOCYTE | 18.3 | 18.0 - 42.0 % | [facility] | | | % | | | LABORATORY | | | | | | SERVICES, | | | | | | CORE | | + + + + + + | MONOCYTE % | 10.1 (H) | 3.5 - 9.0 % | [facility] | | | | | | LABORATORY | | | | | | SERVICES, | | | | | | CORE | | + + + + + + | EOS % | 3.0 | 1.0 - 3.0 % | [facility] [...] + + + + | NEUTROPHIL | 7.62 | 1.80 - 7.70 | [facility] | | | # | | K/cu mm | LABORATORY | | | | | | SERVICES, | | | | | | CORE | | + + + + + + | LYMPHOCYTE | 2.07 | 1.00 - 4.80 | [facility] | | | # | | K/cu mm | LABORATORY | | | | | | SERVICES, | | | | | | CORE | | + + + + + + | MONOCYTE # | 1.14 (H) | 0.10 - 0.90 | [facility] | | | | | K/cu mm | LABORATORY | | | | | | SERVICES, | | | | | | CORE | | + + + + + + | EOS # | 0.34 | 0.00 - 0.50 | [facility] | | | | | K/cu mm | LABORATORY | | | | | | SERVICES, | | | | | | CORE | | + + + + + + | BASO # | 0.09 | 0.00 - 0.10 | [facility] | [...] [facility] | [address] | [place] [address] | | | SERVICES, CORE | [address] | | | + + + + + SEDIMENTATION RATE (07/09/2013 12:10 PM PST) + [...] | + + + + + | [facility] | [address] [facility] | [place] [address] | | | SERVICES, CORE | [address] [...] | | | LABORATORY | | | [place] | | | SERVICES, | | | [...] + + + + + | [facility] | [address] | [place] [address] | | | SERVICES, CORE | [address] | | | + + + + + documented in this encounter Visit Diagnoses + + | Diagnosis | + + | Rheumatoid arthritis(714.0) ([facility]) Rheumatoid arthritis | + + documented in this encounter"
--- OUTSIDE RECORDS SUMMARY | ~2019-05-17 | XMS | Encounter Summary ---
Demographics + + + | Address | [address] | | | [place] [address] | + + + | Home Phone | | + + + | Preferred Language | Unknown | + + + | Marital Status | | + + + | Evangelical Affiliation | 1077 | + + + | Race | Unknown | + + + | Ethnic Group | Unknown | + + + Author + + + | Author | [facility] | | | and Azana | + + + | Organization | [facility] | [...] [place], [place] | | | | | [address] | | + + + + + | Helena Doherty | ECON | [place], | | | | | [place] [address] | | + + + + + Care Team Providers + +------+ + | Care Tap Builder Name | Role | Phone | [...] + + | 04/10/ | Telephone | [facility] | Agusto Pereira MD | Post-op Question; | | 2017 | | NEUROSURGERY [address] | [address] [address] | Coordination Of Care | | | | [facility] | [place] [address] | (GI; PCP) | | | | [place] | [phone] | | | | | [address] | | | | | | [phone] | | | +--------+ + + + [...] | | | | | | [place] [address] | | | | | | [phone] | | | | | | | | | | | | Foreign Diplomat, [facility] | | +--------+ + + + + documented as of this encounter Visit Diagnoses Not on filedocumented in this encounter"
--- OUTSIDE RECORDS SUMMARY | ~2019-05-17 | XMS | Encounter Summary ---
Demographics + + + | Address | [address] | | | [place] [address] | + + + | Home Phone [...] Providers + +------+ + | Care Steam Clean Machine Operator Name | Role | Phone | + +------+ + | Thee Boss MD | PCP | | + +------+ + Encounter Details +--------+ + + + + | Date | Type | Department | Care Team | Description | +--------+ + + + + | 04/07/ | Hospital | Diagnostic | | | | 2012 | Encounter | Radiology at [facility] | | | | | | [address] | | | | | | [place] Mailcode: | | | | | | [id number] | | | | | | [place], | | | | | | [place] [address] | | | | | | [phone] | | | +--------+ + + + [...] + | Performing | Address | [facility] | Phone Number | | [...]
--- OUTSIDE RECORDS SUMMARY | ~2019-05-17 | XMS | Encounter Summary ---
Demographics + + + | Address | [address] [facility] | | | [place] [address] | + + + | Home Phone [...] + | Author | [facility] | | | and Azana | + + + | Organization | [facility] | | [...] [place], [place] | | | | | [address] | | + + + + + | Helena Doherty | ECON | [place], | | | | | [place] [address] | | + + + + + Care Team Providers + +------+ + | Care Supervisor Contact And Service Clerks Name | Role | Phone | + [...] | | | bursitis, | Ave | [address] Phone: | | | | | left hip | [place], | [phone] | | | | | M70.61 | [place] | Fax: | | | | | (ICD-10-CM) | [address] | [phone] | | | | | - | Phone: | | | | | | Trochanteric | [phone] | | | | | | bursitis, | Fax: | | | | | | right hip | [phone] | | | | | | M79.7 [...] | | [address] | [address] | pain; Trochanteric | | | | MARCOS TAYLOR | [place], [place] | bursitis of both | | | | [address] | [address] | hips | | | | [phone] | [phone] | | | | | | | [...] be different fro m the original. [facility] [address] [place] [address] Physical Therapy Daily Treatment Note Date: 07/29/2018 Patient Information Patient Name: Ashly Santiago Date of : 1940 Age: 78 y.o. Encounter Diagnoses Code Name Primary? M79.7 Fibromyalgia Yes M54.2 Neck pain M70.61, M70.62 Trochanteric bursitis of both hips Date of Onset: 04/10/2018 Referring Provider: Sophia Bush PA-C Rehab Precautions Office Visit from 04/17/2018 in [facility] PT OP Rehab Precautions Precautions None Rehab Learning Style Office Visit from 04/17/2018 in [facility] PT OP Office Visit fro m 10/19/2016 in [facility] PT OP Learning Style [...] DAIANA | | | | | | [place] [address] | | | | | | [phone] | | | | | | | | | | | | Wild[place] FirefighterNaomi | | +--------+ + + + + documented as of this encounter Visit Diagnoses + + | Diagnosis | + + | Fibromyalgia - Primary Mylagia and myositis, unspecified | + + | Neck pain Cervicalgia | + + | Trochanteric bursitis of both hips Enthesopathy of hip region | + + documented in this encounter"
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
--- OUTSIDE RECORDS SUMMARY | ~2019-05-17 | XMS | Encounter Summary ---
Demographics + + + | Address | [address] [facility] | | | [place] [address] | + + + | Home Phone [...] Team Providers + +------+ + | Care Spray Gun Operator Name | Role | Phone | [...] 2016 | Encounter | Physicians [facility] | [address] [facility] | [place] | | | | [address] [facility] | [address], | Prescriptioins for | | | | Amara Chatman Mailcode: | [place] [address] | Ashly Santiago | | | | [address] Physician's | [phone] | | | | | [address], [address] | | | | | | [place], [place] | | | | | | [address] | | | | | | [phone] | | | +--------+ + + + [...]
--- OUTSIDE RECORDS SUMMARY | ~2019-05-17 | XMS | Encounter Summary ---
Demographics + + + | Address | [address] [facility] | | | [place] [address] | + + + | Home Phone [...] Author | [facility] | | | and Azana | + + + | Organization | [facility] | | [...] [place], [place] | | | | | [address] | | + + + + + | Helena Doherty | ECON | [place], | | | | | [place] [address] | | + + + + + Care Team Providers + +------+ + | Care Search Manager Name | Role | Phone | [...] [address] | | | | | [address] [place], | [address] [place] | | | | | [place] [address] | [place] [address] | | | | | [phone] | [phone] | | | | | | | [...] | | | | | [place] [address] | | | | | | [phone] | | | | | | | | | | | | [place] | | +--------+ + + + + documented as of this encounter Visit Diagnoses Not on filedocumented in this encounter"
--- OUTSIDE RECORDS SUMMARY | ~2019-05-17 | XMS | Encounter Summary ---
Demographics + + + | Address | [address] [facility] | | | [place] [address] | + + + | Home Phone [...] | Author | [facility] | | | and Azana | + + + | Organization | [facility] | | | and zAana | + + + | Address | Unknown | + + + | Phone | Unavailable | + + + Support + + + + + | Name | Relationship | Address | Phone | + + + + + | Alon Santiago | KATERIN | [address] | | | | | [place], [place] | | | | | [address] | | + + + + + | Helena Doherty | ECON | [place], | | | | | [place] [address] | | + + + + + Care Team Providers + +------+ + | Care Head Grinder Name | Role | Phone | + [...] [address] | | | | | [place], | [place], [place] | | | | | [place] [address] | [address] | | | | | [phone] | | | +--------+ + + + [...] | | | | | [place] [address] | | | | | | [phone] | | | | | | | | | | | | Assistant Professor Of Economics, Naomi | | +--------+ + + + + documented as of this encounter Visit Diagnoses Not on filedocumented in this encounter"
--- OUTSIDE RECORDS SUMMARY | ~2019-05-17 | XMS | Encounter Summary ---
Demographics + + + | Address | [address] [facility] | | | [place] [address] | + + + | Home Phone [...] Team Providers + +------+ + | Care Work Counselor Name | Role | Phone | [...] | | | Amara Chatman Mailcode: | [place], [place] | | | | | [address] Physician's | [address] | | | | | Francy, 4th Floor | [phone] | | | | | [place], [place] | | | | | | [address] | | | | | | [phone] | | | +--------+ + + + [...]
--- OUTSIDE RECORDS SUMMARY | ~2019-05-17 | XMS | Encounter Summary ---
Demographics + + + | Address | [address] [facility] | | | [place] [address] | + + + | Home Phone [...] Team Providers + +------+ + | Care Waste Water Plant Operator Name | Role | Phone | [...] | | | | [address] | [place] [address] | | | | | [place], [place] | [phone] | | | | | [address] | | | | | | [phone] | | | +--------+ + + + [...]
--- OUTSIDE RECORDS SUMMARY | ~2019-05-17 | XMS | Encounter Summary ---
Demographics + + + | Address | [address] [facility] | | | [place] [address] | + + + | Home Phone [...] Author | [facility] | | | and Azana | + + + | Organization | [facility] | | [...] [place], [place] | | | | | [address] | | + + + + + | Helena Doherty | ECON | [place], | | | | | [place] [address] | | + + + + + Care Team Providers + +------+ + | Care Medical Specialist Name | Role | Phone | [...] | | | bursitis, | Ave | [address] Phone: | | | | | left hip | [place], | [phone] | | | | | M70.61 | [place] | Fax: | | | | | (ICD-10-CM) | [address] | [phone] | | | | | - | Phone: | | | | | | Trochanteric | [phone] | | | | | | bursitis, | Fax: | | | | | | right hip | [phone] | | | | | | M79.7 [...] + + | 06/26/ | Office | [facility] | Schmidtgall, | Fibromyalgia | | 2019 | Visit | MED CTR THERAPY PT | Sophia Kingsley PA-C | (Primary Dx); Neck | | | | OP [address] | [address] | pain; Trochanteric | | | | [place] | [place], [place] | bursitis of both | | | | [address] | [address] | hips | | | | [phone] | [phone] | | | | | | | | | | | | Aiyana Fish S, PT | | | | | | [address] | | | | | | [place] | | | | | | [address] | | | | | | | [...] encounter Progress Notes Aiyana Fish, PT - 06/26/2018 1:00 PM PSTFormatting of this note might be different fro m the original. [facility] CTR THERAPY PT OP [address] [place] [address] Physical Therapy Daily Treatment Note Date: 06/26/2018 Patient Information Patient Name: Ashly Santiago Date [...] of task Start Time: 1305 Stop time: 1404 Duration: 59 minutes Timed Treatment Codes: 55 minutes # of PT Visits to Date: 9 Subjective: Pt reports that she continues to have pain in her hips and in her right knee. She reports that her neck and upper back are actually better. Pt is walking slowly today with an antalg ic gait. Pain Assessment: Pain Rating Pre Assessment: 5 Location: left hip and right knee Objective: Manual Treatment: Myofascial release and positional release therapy: Right hip and leg, ri ght upper and mid thoracic spine and right scapula. Also multiple fascial releases of the c ervical spine Assessment: Good response to treatment. Fascial release resulted in improved mobility in the cervical spine especially LR which was limited to 50 degrees coming in today but was a t least 60 deg beltran following the session. Her gait was also less antalgic after the session today. Plan: Continue with manual therapy and development of home program Electronically signed by: Aiyana Fish PT, 06/26/2018 14:10 Patient Name: Ashly Real Santiago/: 1940/ documented [...] | | | | | [place] [address] | | | | | | [phone] | | | | | | | | | | | | Dispensing AudiologistNaomi | | +--------+ + + + + documented as of this encounter Visit Diagnoses + + | Diagnosis | + + | Fibromyalgia - Primary Mylagia and myositis, unspecified | + + | Neck pain Cervicalgia | + + | Trochanteric bursitis of both hips Enthesopathy of hip region | + + documented in this encounter"
--- OUTSIDE RECORDS SUMMARY | ~2019-05-17 | XMS | Encounter Summary ---
Demographics + + + | Address | [address] [facility] | | | [place] [address] | + + + | Home Phone [...] | Author | [facility] | | | and Azana | + + + | Organization | [facility] [...] [place], [place] | | | | | [address] | | + + + + + | Helena Doherty | ECON | [place], | | | | | [place] [address] | | + + + + + Care Team Providers + +------+ + | Care Personal Lines Sales Rep Name | Role | Phone | + +------+ + PCP | Unavailable | + +------+ + Encounter Details +--------+ + + + + | Date | Type | Department | Care Team | Description | +--------+ + + + + | 07/06/ | Hospital | [facility] | | | | 2009 | Encounter | MED CTR GENERIC OP | | | | | | CONV DEPT [address] | | | | | | [place], | | | | | | [place] [address] | | | | | | [phone] | | | +--------+ + + + [...] | | | | | | [place] [address] | | | | | | [phone] | | | | | | | | | | | | Feed AdviserNaomi | | +--------+ + + + + documented as of this encounter Visit Diagnoses Not on filedocumented in this encounter"
--- OUTSIDE RECORDS SUMMARY | ~2019-05-17 | XMS | Encounter Summary ---
Demographics + + + | Address | [address] [facility] | | | [place] [address] | + + + | Home Phone [...] Author | [facility] | | | and Azana | + + + | Organization | [facility] | | [...] [place], [place] | | | | | [address] | | + + + + + | Helena Doherty | ECON | [place], | | | | | [place] [address] | | + + + + + Care Team Providers + +------+ + | Care Leather Goods Maker Name | Role | Phone | [...] + + | 10/22/ | Telephone | [facility] | Agusto Pereira MD | Appointment Question | | 2019 | | NEUROSURGERY [address] | [address] | | | | | [address] | [place] [address] | | | | | [place] | [phone] | | | | | [address] | | | | | | [phone] | | | +--------+ + + + [...] CASE | | | | | | [place] [address] | | | | | | [phone] | | | | | | | | | | | | Director Of Midwifery/Staff Midwife, [facility] | | +--------+ + + + + documented as of this encounter Visit Diagnoses Not on filedocumented in this encounter"
--- OUTSIDE RECORDS SUMMARY | ~2019-05-17 | XMS | Encounter Summary ---
Demographics + + + | Address | [address] [facility] | | | [place] [address] | + + + | Home Phone | | + + + | Preferred Language | Unknown | + + + | Marital Status | | + + + | Sikhism Affiliation | 1077 | + + + | Race | Unknown | + + + | Ethnic Group | Unknown | + + + Author + + + | Author | [facility] | | | and Azana | + + + | Organization | [facility] | | [...] [place], [place] | | | | | [address] | | + + + + + | Helena Doherty | ECON | [place], | | | | | [place] [address] | | + + + + + Care Team Providers + +------+ + | Care Punch Hand Name | Role | Phone | [...] [address] | | | | | [phone] | [place] [address] | | +--------+ + + + + [...] | | | | | [place] [address] | | | | | | [phone] | | | | | | | | | | | | Outsole Handler, [facility] | | +--------+ + + + [...]
--- OUTSIDE RECORDS SUMMARY | ~2019-05-17 | XMS | Encounter Summary ---
Demographics + + + | Address | [address] [facility] | | | [place] [address] | + + + | Home Phone [...] | Author | [facility] | | | and Azana | + + + | Organization | [facility] | [...] [place], [place] | | | | | [address] | | + + + + + | Helena Doherty | ECON | [place], | | | | | [place] [address] | | + + + + + Care Team Providers + +------+ + | Care Loader Machine Name | Role | Phone | [...] + + | 09/24/ | Telephone | [facility] | Joshua Hilliard MD | Medication Follow-up | | 2019 | | GASTROENTEROLOGY | [address], [place] | | | | | [address] [place] | [address] [place] | | | | | [address] [place], [place] | [address] | | | | | [address] | | | | | | [phone] | | | +--------+ + + + [...] | | | | | [place] [address] | | | | | | [phone] | | | | | | | | | | | | Funeral Service LicenseeNaomi | | +--------+ + + + + documented as of this encounter Visit Diagnoses Not on filedocumented in this encounter"
--- OUTSIDE RECORDS SUMMARY | ~2019-05-17 | XMS | Encounter Summary ---
Demographics + + + | Address | [address] [facility] | | | [place] [address] | + + + | Home Phone [...] Team Providers + +------+ + | Care Chemical Tank Worker Name | Role | Phone | [...] [address] | | | | | | [place], [place] | | | | | | [address] | | | +--------+ + + + [...]
--- OUTSIDE RECORDS SUMMARY | ~2019-05-17 | XMS | Encounter Summary ---
Demographics + + + | Address | [address] [facility] | | | [place] [address] | + + + | Home Phone [...] Author | [facility] | | | and Azana | + + + | Organization | [facility] [...] [place], [place] | | | | | [address] | | + + + + + | Helena Doherty | ECON | [place], | | | | | [place] [address] | | + + + + + Care Team Providers + +------+ + | Care Quality Control Lab Technician Name | Role | Phone [...] | | Required | | foraminal | N[place], | [address] | | | | | stenosis | PA-C [address] | [place], [place] | | | | | Facet | [address] | [address] | | | | | arthritis of | [place], [place] | Phone: | | | | | lumbar | [address] | [phone] | | | | | region | Phone: | Fax: | | | | | Lumbar | [phone] | 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
--- OUTSIDE RECORDS SUMMARY | ~2019-05-17 | XMS | Encounter Summary ---
Demographics + + + | Address | [address] [facility] | | | [place] [address] | + + + | Home Phone | | + + + | Preferred Language | Unknown | + + + | Marital Status | | + + + | Restoration Affiliation | Unknown | + + + [...] Team Providers + +------+ + | Care Courtroom Reporter Name | Role | Phone | + +------+ + | Bassem Nathan DO | PCP | | + +------+ + Encounter Details +--------+ + + + + | Date | Type | Department | Care Team | Description | +--------+ + + + + | 04/18/ | MyChart | [facility] | Agusto Pereira MD | RE: Letter sent to | | 2019 | Encounter | Neurosurgery at 7th | [address] | Dr. Pereira's office | | | | [address] | [address] | recently | | | | [address] | [place] [address] | | | | | [place], [place] | [phone] | | | | | [address] | | | | | | [phone] | | | +--------+ + + + [...]
--- OUTSIDE RECORDS SUMMARY | ~2019-05-17 | XMS | Encounter Summary ---
Demographics + + + | Address | [address] [facility] | | | [place] [address] | + + + | Home Phone [...] + | Author | [facility] | | | and Azana | + + + | Organization | [facility] [...] [place], [place] | | | | | [address] | | + + + + + | Helena Doherty | ECON | [place], | | | | | [place] [address] | | + + + + + Care Team Providers + +------+ + | Care Woven Wood Shade Assembler Name | Role | Phone | [...] | | [address] | [place] [address] | | | | | [place] | [phone] | | | | | [address] | | | | | | [phone] | | | +--------+ + + + [...] [place] | | | | | | [place] [address] | | | | | | [phone] | | | | | | | | | | | | Upholsterer Helper, [facility] | | +--------+ + + + + documented as of this encounter Visit Diagnoses Not on filedocumented in this encounter"
--- OUTSIDE RECORDS SUMMARY | ~2019-05-17 | XMS | Encounter Summary ---
Demographics + + + | Address | [address] [facility] | | | [place] [address] | + + + | Home Phone [...] | [facility] | | | and Azana | + + + | Organization | [facility] | [...] [place], [place] | | | | | [address] | | + + + + + | Helena Doherty | ECON | [place], | | | | | [place] [address] | | + + + + + Care Team Providers + +------+ + | Care Rock Crusher Name | Role | Phone | + [...] + + | 06/26/ | Office | [facility] | Joshua Hilliard MD | Functional diarrhea | | 2018 | Visit | GASTROENTEROLOGY | [address] | (Primary Dx) | | | | [address] | [address] [place] [place] | | | | | [address] [place] | [id number] | | | | | [address] | | | | | | [phone] | | | +--------+---------+ + + + [...] | | | | | [place] [address] | | | | | | [phone] | | | | | | | | | | | | Rail Transportation Tabeler, [facility] | | +--------+ + + + + documented as of this encounter Visit Diagnoses + + | Diagnosis | + + | Functional diarrhea - Primary | + + documented in this encounter
--- OUTSIDE RECORDS SUMMARY | ~2019-05-17 | XMS | Encounter Summary ---
Demographics + + + | Address | [address] [facility] | | | [place] [address] | + + + | Home Phone | | + + + | Preferred Language | Unknown | + + + | Marital Status | | + + + | Spiritism Affiliation | Unknown | + + + [...] Team Providers + +------+ + | Care Chancery Clerk Name | Role | Phone | + +------+ + | Thee Boss MD | PCP | | + +------+ + Encounter Details +--------+ + + + + | Date | Type | Department | Care Team | Description | +--------+ + + + + | 09/08/ | MyChart | Rheumatology at | Tavia Zuniga | RE: Bita vs | | 2013 | Encounter | Physicians KALA Fung [address] | Charles | | | | [address] | [address] | | | | | Amara Chatman Mailcode: | [place], [place] | | | | | [address] Physician's | [address] | | | | | [address], 4th Floor | [phone] | | | | | [place], [place] | | | | | | [address] | | | | | | [phone] | | | +--------+ + + + [...]
--- OUTSIDE RECORDS SUMMARY | ~2019-05-17 | XMS | Encounter Summary ---
Demographics + + + | Address | [address] [facility] | | | [place] [address] | + + + | Home Phone [...] | Author | [facility] | | | and Azana | + + + | Organization | [facility] [...] [place], [place] | | | | | [address] | | + + + + + | Helena Doherty | ECON | [place], | | | | | [place] [address] | | + + + + + Care Team Providers + +------+ + | Care Licensed Midwife Name | Role | Phone | + [...] 50 | | | | | | [place] | | | | | | [address] | | | | | | [phone] | | | +--------+ + + + [...] | | | | | [place] [address] | | | | | | [phone] | | | | | | | | | | | | Web EditorNaomi | | +--------+ + + + + documented as of this encounter Visit Diagnoses Not on filedocumented in this encounter"
--- OUTSIDE RECORDS SUMMARY | ~2019-05-17 | XMS | Encounter Summary ---
Demographics + + + | Address | [address] [facility] | | | [place] [address] | + + + | Home Phone [...] Team Providers + +------+ + | Care Decision Analyst Name | Role | Phone | [...] Barry | | | | | 4.0) ([facility]) | [place] [address] | [address] | | | | | Myalgia and | [address] | [address] [place], | | | | | myositis, | [place], | [place] | | | | | unspecified | [place] [address] | [address] | | | | | Procedures | Phone: | Phone: | | | | | [place] | [phone] | [phone] | | | | | OFFICE/OUTPT | Fax: | Fax: | | | | | | [phone] | [phone] | | | | | VISIT,EST,LE | [...] 2015 | Visit | Physicians [place]ancy | [address] | (Primary Dx) | | | | [address] | [address] [place] [place], | | | | | Celina Compa Mailcode: | [place] [address] | | | | | [address] Physician's | [phone] | | | | | Francy, 4th Floor | | | | | | [place], [place] | | | | | | [address] | | | | | | [phone] | | | +--------+---------+ + + + [...] This consultation was requested by: Tavia Linda, DIRECTOR OF PROMOTIONS [address] [place] [address] fax: [phone] CC: joint pain HPI: Ms Santiago is [...] labs but Dr Shelton, who was her Analytics Manager, was not sure if the symptoms were [...] of systems. I s pent 20 minutes [id number] with the patient with over 50% in [...] | | | LABORATORY | | | [place] [facility] | | | SERVICES, | | | [...] + + | [facility] | [address] | [place] [address] | | | SERVICES, CORE | [address] | | | + + + + + documented in this encounter Visit Diagnoses + + | Diagnosis | + + | Rheumatoid arthritis - Primary | + + documented in this encounter
--- OUTSIDE RECORDS SUMMARY | ~2019-05-17 | XMS | Encounter Summary ---
Demographics + + + | Address | [address] [facility] | | | [place] [address] | + + + | Home Phone [...] + | Author | [facility] | | | and Azana | + + + | Organization | [facility] [...] [place], [place] | | | | | [address] | | + + + + + | Helena Doherty | ECON | [place], | | | | | [place] [address] | | + + + + + Care Team Providers + +------+ + | Care Compensator Worker Name | Role | Phone | [...] | | | bursitis, | Ave | [address] Phone: | | | | | left hip | [place], | [phone] | | | | | M70.61 | [place] | Fax: | | | | | (ICD-10-CM) | [address] | [phone] | | | | | - | Phone: | | | | | | Trochanteric | [phone] | | | | | | bursitis, | Fax: | | | | | | right hip | [phone] | | | | | | M79.7 [...] + + | 06/26/ | Office | [facility] | Schmidtgall, | Fibromyalgia | | 2019 | Visit | MED CTR THERAPY PT | Sophia Kingsley PA-C | (Primary Dx); Neck | | | | OP [address] | [address] | pain; Trochanteric | | | | [place] | [place], [place] | bursitis of both | | | | [address] | [address] | hips | | | | [phone] | [phone] | | | | | | | | | | | | Aiyana Fish S, PT | | | | | | [address] | | | | | | [place] | | | | | | [address] | | | | | | | [...] might be different fro m the original. [facility] CTR THERAPY PT OP [address] [place] [address] Physical Therapy Daily Treatment Note Date: 06/26/2018 Patient Information Patient Name: Ashly Santiago Date of : 1940 Age: 78 y.o. Encounter Diagnoses Code Name Primary? M79.7 Fibromyalgia Yes M54.2 Neck pain M70.61, M70.62 Trochanteric bursitis of both hips Date of Onset: 04/10/2018 Referring Provider: Sophia Bush PA-C Rehab Precautions Office Visit from 04/17/2018 in [facility] CTR THERAPY PT OP Rehab Precautions Precautions None Rehab Learning Style Office Visit from 04/17/2018 in [facility] CTR THER[facility] PT OP Office Visit fro m 10/19/2016 in [facility] CTR THERAPY PT [...] | | | | | | [place] [address] | | | | | | [phone] | | | | | | | | | | | | Registered Nurse Step DownNaomi | | +--------+ + + + + documented as of this encounter Visit Diagnoses + + | Diagnosis | + + | Fibromyalgia - Primary Mylagia and myositis, unspecified | + + | Neck pain Cervicalgia | + + | Trochanteric bursitis of both hips Enthesopathy of hip region | + + documented in this encounter"
--- OUTSIDE RECORDS SUMMARY | ~2019-05-17 | XMS | Encounter Summary ---
Demographics + + + | Address | [address] [facility] | | | [place] [address] | + + + | Home Phone [...] Author | [facility] | | | and Azana | + + + | Organization | [facility] [...] [place], [place] | | | | | [address] | | + + + + + | Helena Doherty | ECON | [place], | | | | | [place] [address] | | + + + + + Care Team Providers + +------+ + | Care Hat Steamer Name | Role | Phone | + +------+ + | Sophia Bush PA-C | PCP | | + +------+ + Encounter Details +--------+ + + + + | Date | Type | Department | Care Team | Description | +--------+ + + + + | 08/28/ | Abstract | [facility] | Fay, | | | 2016 | | PHYSIATRY [address] | [address]ABIAN Castillo [address] | | | | | [place], | [place], | | | | | [place] [address] | [place] [address] | | | | | [phone] | [phone] | | | | | | | [...] | | | | | [place] [address] | | | | | | [phone] | | | | | | | | | | | | Car Wiper, [facility] | | +--------+ + + + + documented as of this encounter Visit Diagnoses Not on filedocumented in this encounter"
--- OUTSIDE RECORDS SUMMARY | ~2019-05-17 | XMS | Encounter Summary ---
Demographics + + + | Address | [address] [facility] | | | [place] [address] | + + + | Home Phone | | + + + | Preferred Language | Unknown | + + + | Marital Status | | + + + | Anglican Affiliation | 1077 | + + + | Race | Unknown | + + + | Ethnic Group | Unknown | + + + Author + + + | Author | [facility] | | | and Azana | + + + | Organization | [facility] | | | and Azana | + + + | Address | Unknown | + + + | Phone | Unavailable | + + + Support + + + + + | Name | Relationship | Address | Phone | + + + + + | Alon Santiago | KATERIN | [address] | | | | | [place], [place] | | | | | [address] | | + + + + + | Helena Doherty | ECON | [place], | | | | | [place] [address] | | + + + + + Care Team Providers + +------+ + | Care Metal Fabrication Supervisor Name | Role | Phone | [...] Call) | | | | [address] [facility] [address] | [place] [address] | | | | | [place] | [phone] | | | | | [address] | | | | | | [phone] | | | +--------+--------+ + + + [...] | | | | | | [place] [address] | | | | | | [phone] | | | | | | | | | | | | Coin Machine Servicer RepairerNaomi | | +--------+ + + + + documented as of this encounter Visit Diagnoses + + | Diagnosis | + + | S/P lumbar fusion - Primary Arthrodesis status | + + documented in this encounter"
--- OUTSIDE RECORDS SUMMARY | ~2019-05-17 | XMS | Encounter Summary ---
Demographics + + + | Address | [address] [facility] | | | [place] [address] | + + + | Home Phone | | + + + | Preferred Language | Unknown | + + + | Marital Status | | + + + | Restoration Affiliation | 1077 | + + + | Race | Unknown | + + + | Ethnic Group | Unknown | + + + Author + + + | Author | [facility] | | | and Azana | + + + | Organization | [facility] [...] [place], [place] | | | | | [address] | | + + + + + | Helena Doherty | ECON | [place], | | | | | [place] [address] | | + + + + + Care Team Providers + +------+ + | Care Overedge Sewer Name | Role | Phone | [...] 50 | | | | | | [place] | | | | | | [address] | | | | | | [phone] | | | +--------+ + + + [...] | | | | | [place] [address] | | | | | | [phone] | | | | | | | | | | | | Bow Machine OperatorNaomi | | +--------+ + + + + documented as of this encounter Visit Diagnoses Not on filedocumented in this encounter"
--- OUTSIDE RECORDS SUMMARY | ~2019-05-17 | XMS | Encounter Summary ---
Demographics + + + | Address | [address] [facility] | | | [place] [address] | + + + | Home Phone [...] Team Providers + +------+ + | Care Access Developer Name | Role | Phone | + +------+ + | Bassem Nathan | PCP | | + +------+ + Encounter Details +--------+ + + + + | Date | Type | Department | Care Team | Description | +--------+ + + + + | 06/19/ | Vice President Of Customer Service | Rheumatology at | Rosas Lucia MD | | | 2014 | | Physicians Francy | [address] [facility] | | | | | [address] | [address] [place] | | | | | [place] Chat[place] Mailcode: | [place] [address] | | | | | [address]09 Physician's | [phone] | | | | | Francy, [facility] Floor | | | | | | [place], [place] | | | | | | [address] | | | | | | [phone] | | | +--------+ + + + [...]
--- OUTSIDE RECORDS SUMMARY | ~2019-05-17 | XMS | Encounter Summary ---
Demographics + + + | Address | [address] [facility] | | | [place] [address] | + + + | Home Phone [...] Author | [facility] | | | and Azana | + + + | Organization | [facility] | | | [...] [place], [place] | | | | | [address] | | + + + + + | Helena Doherty | ECON | [place], | | | | | [place] [address] | | + + + + + Care Team Providers + +------+ + | Care Hogshead Inspector Name | Role | Phone | [...] + + | 02/06/ | Documentati | [facility] | Aiyana Fish, | Therapy Discharge | | 2017 | on | MED CTR THERAPY PT | PT [address] | | | | | [address] | [place] | | | | | [place] | [address] | | | | | [address] | | | | | | [phone] | | | +--------+ + + + [...] might be different jhonatan m the original. [facility] CTR THERAPY PT OP [address] [place] [address] Physical Therapy Discharge Note This discharge is [...] care. This note serves as discharge from [facility]. The last progress note or the patients [...] | | | | | [place] [address] | | | | | | [phone] | | | | | | | | | | | | Handle And Vent Machine Operator, [place] | | +--------+ + + + + documented as of this encounter Visit Diagnoses + + | Diagnosis | + + | Sacroiliitis (HCC) Sacroiliitis, not elsewhere classified | + + | Fibromyalgia Mylagia and myositis, unspecified | + + documented in this encounter"
--- OUTSIDE RECORDS SUMMARY | ~2019-05-17 | XMS | Encounter Summary ---
Demographics + + + | Address | [address] [facility] | | | [place] [address] | + + + | Home Phone [...] + | Author | [facility] | | | and Azana | + + + | Organization | [facility] | | | and [...] [place], [place] | | | | | [address] | | + + + + + | Helena Doherty | ECON | [place], | | | | | [place] [address] | | + + + + + Care Team Providers + +------+ + | Care Mixer Foam Rubber Name | Role | Phone | + [...] | stenosis | PA-C [address] | [place], [place] | | | | | Facet | [address] | [address] | | | | | arthritis of | [place], [place] | Phone: | | | | | lumbar | [address] | [phone] | | | | | region | Phone: | Fax: | | | | | Lumbar | [phone] | [phone] | | | | | radiculopath | Fax: | | | | | | y | [phone] | | | | | | Degenerative [...] + + | 10/26/ | Office | [facility] | Agusto Pereira MD | Scoliosis of lumbar | | 2017 | Visit | NEUROSURGERY [address] | [address] | spine, unspecified | | | | [address] | [place] [address] | scoliosis type | | | | [place] | [phone] | (Primary Dx); | | | | [address] | | DEGENERATIVE DISC | | | | [phone] | | DISEASE, LUMBAR | | | | | | SPINE; 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; | | | | | | 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 Agusto Pereira MD [address] [facility] [address] [place], [place] [id number] FAX: NEUROSURGERY HISTORY AND PHYSICAL EXAMINATION CHIEF [...] Bilateral 1996 [facility] Hysterectomy, total abdominal 1972 [place] Appendectomy 1959 [place] Tonsillectomy 1944 [place], [place] Colonoscopy 2003 [facility] Bunionectomy 04/10/2007 [facility]; Dr. Db Berrios Perineal skin bridge 02/2009 Electrocardiogram 05/19/2009 Dr. Boss Egd and colonoscopy 07/06/[address] [facility] [address] Jc Electrocardiogram 08/12/2009 Dr. Radha Stafford; [facility]; Dr. Marquez Finger trigger release Right 05/28/2014 Middle finger; Dr. Donta Agarwal Rotator cuff repair Right 04/20/2015 Dr. Jesus Nasal septum surgery 06/06/2016 Dr. Lindsey; [facility] CURRENT MEDICATIONS: Current Outpatient Prescriptions Medication [...] no apparent deficits with short or superintendent container terminal memory. CRANIAL NERVES: II: Acuity is intact. [...] Intrinsics 5 5 Ulnar Intrinsics 5 5 Contractor Field Hauling Strength 5 5 Hip Flexion 5 5 [...] 17:15 Sheree Carlson assisted me in the network relations consultant of this note in my presence today. [...] DAIANA | | | | | | [place] [address] | | | | | | [phone] | | | | | | | | | | | | Rn FieldNaomi | | +--------+ + + + + [...]
--- OUTSIDE RECORDS SUMMARY | ~2019-05-17 | XMS | Encounter Summary ---
Demographics + + + | Address | [address] [facility] | | | [place] [address] | + + + | Home Phone [...] Team Providers + +------+ + | Care Middle School Band Teacher Name | Role | Phone | [...] | | | | | | at [address] | | | | | | [address] | | | | | | [place], | | | | | | [place] [address] | | | | | | [phone] | | | +--------+------+ + + + [...] [facility] | [address] | [place] [address] | | | SAMIR LEVY | CELINA [...] | | | LABORATORY | | | AFGHAN | | | SERVICES, | | | [...] | + + + + + | [facility] | [address] | [place] [address] | | | SERVICES, CORE | [address] | | | + + + + + documented in this encounter Visit Diagnoses + + | Diagnosis | + + | Rheumatoid arthritis | + + documented in this encounter"
--- OUTSIDE RECORDS SUMMARY | ~2019-05-17 | XMS | Encounter Summary ---
Demographics + + + | Address | [address] [facility] | | | [place] [address] | + + + | Home Phone [...] Author + + + | Author | [facility] | + + + | Organization | [facility] | + + + | Address | Unknown | + + + | Phone | Unavailable | + + + Support + + +---------+ + | Name | Relationship | Address | Phone | + + +---------+ + | Alon Santiago | ECON | Unknown | | + + +---------+ + Care Team Providers + +------+ + | Care Mechanical Engineering Intern Name | Role | Phone [...] 2016 | Encounter | Palmira Sen | [address] [facility] | | | | | [address] | [address] [place], | | | | | [place] Mailcode: | [place] [address] | | | | | [address]09 Physician's | [phone] | | | | | Francy, 4th Floor | | | | | | [place], [place] | | | | | | [address] | | | | | | [phone] | | | +--------+ + + + [...]
--- OUTSIDE RECORDS SUMMARY | ~2019-05-17 | XMS | Encounter Summary ---
Demographics + + + | Address | [address] [facility] | | | [place] [address] | + + + | Home Phone [...] | Author | [facility] | | | and Azana | + + + | Organization | [facility] | | | and [...] [place], [place] | | | | | [address] | | + + + + + | Helena Doherty | ECON | [place], | | | | | [place] [address] | | + + + + + Care Team Providers + +------+ + | Care Deer Farm Worker Name | Role | Phone | [...] + + | 05/06/ | Telephone | [facility] | Dennys Pineda PA-C | Paperwork | | 2019 | | PHYSIATRY [address] | [address] | | | | | [place], | [address] [place] | | | | | [place] [address] | [place] [address] | | | | | [phone] | [phone] | | | | | | | [...] | | | | | [place] [address] | | | | | | [phone] | | | | | | | | | | | | Salesperson Men'S FurnishingsNaomi | | +--------+ + + + + documented as of this encounter Visit Diagnoses Not on filedocumented in this encounter"
--- OUTSIDE RECORDS SUMMARY | ~2019-05-17 | XMS | Encounter Summary ---
Demographics + + + | Address | [address] [facility] | | | [place] [address] | + + + | Home Phone [...] Team Providers + +------+ + | Care Sed Middle School Teacher Name | Role | Phone | [...] | | | | | radiculopath | [place], | [address] | | | | | y Cervical | [place] [address] | [place], [place] | | | | | radiculopath | Phone: | [address] | | | | | y Cervical | [phone] | Phone: | | | | | subluxation, | | [phone] | | | | | initial | | Fax: | | | | | encounter | | [phone] | | | | | DDD | [...] | | | | | | | PRODUCT SUPPORT ANALYST | | | | | | | [place] NECK | | | | | | | SPINE | | | | | | | FUSE&REM | | | | | | | ADDL [place] | | | | | | | ADDL NECK | | | | | | | SPINE FUSION | | | | | | | [place] INSERT | | | | | | | VERT FIX | | | | | | | DEV,ANT,2-3 | | | | | | | SGMTS [place] | | | | | | | INSERT | | | | | | | INTERBODY | | | | | | | BIOMECH | | | | | | | DEV,TO | | | | | | | INTERVERTEBR | | | | | | | AL DISC | | | | | | | SPACE [place] | | | | | | | SPIN BONE | | | | | | | ALLOGRFT | | | | | | | MORSELIZED | | | | | | | [place] SPIN BONE | | | | | [...] Ave | | | | | | [facility] [address] | | | | | | [place] [address] | [place], [place] | | | | | | Phone: | [phone] | | | | | | [phone] | Phone: | | | | | | | [phone] | | | | | | | Fax: | | | | | | | [phone] | +--------+--------+ + + + + Encounter [...] | | | | [address] | [place] [address] | Cervical | | | | [place], [place] | [phone] | radiculopathy; | | | | [address] | | Cervical | | | | [phone] | | subluxation, initial | | | [...] 02/23 11:15 AM PDT Agusto Pereira MD [facility] [address] [address] NEUROSURGERY HISTORY AND PHYSICAL EXAMINATION CHIEF COMPLAINT: [...] Intrinsics 5 5 Ulnar Intrinsics 5 5 Supervising Architect Strength 5 5 Hip Flexion 5 5 [...] ed by Abhijit Wu. Agusto Pereira MD [facility] NEUROSURGERY AT [address] [place] [phone] documented in this encount er Plan of [...]
--- OUTSIDE RECORDS SUMMARY | ~2019-05-17 | XMS | Encounter Summary ---
Demographics + + + | Address | [address] [facility] | | | [place] [address] | + + + | Home Phone | | + + + | Preferred Language | Unknown | + + + | Marital Status | | + + + | Rastafari Affiliation | 1077 | + + + | Race | Unknown | + + + | Ethnic Group | Unknown | + + + Author + + + | Author | [facility] | | | and Azana | + + + | Organization | [facility] | | [...] [place], [place] | | | | | [address] | | + + + + + | Helena Doherty | ECON | [place], | | | | | [place] [address] | | + + + + + Care Team Providers + +------+ + | Care Employee Wellness/Fitness Coordinator Name | Role | Phone | [...] | | [address] | [place] [address] | (Primary Dx); Lumbar | | | | [place] | [phone] | radiculopathy; | | | | [address] | | Essential | | | | [phone] | | hypertension; | | | | [...] DAIANA | | | | | | [place] [address] | | | | | | [phone] | | | | | | | | | | | | Youth Nutritional Monitor, [facility] | | +--------+ + + + [...]
--- OUTSIDE RECORDS SUMMARY | ~2019-05-17 | XMS | Encounter Summary ---
Demographics + + + | Address | [address] [facility] | | | [place] [address] | + + + | Home Phone | | + + + | Preferred Language | Unknown | + + + | Marital Status | | + + + | Buddhism Affiliation | 1077 | + + + | Race | Unknown | + + + | Ethnic Group | Unknown | + + + Author + + + | Author | [facility] | | | and Azana | + + + | Organization | [facility] | [...] [place], [place] | | | | | [address] | | + + + + + | Helena Dohrety | ECON | [place], | | | | | [place] [address] | | + + + + + Care Team Providers + +------+ + | Care Transportation Design Engineer Name | Role | Phone | [...] | | [address] | [place] [address] | | | | | [place] | [phone] | | | | | [address] | | | | | | [phone] | | | +--------+ + + + [...] DAIANAA | | | | | | [place] [address] | | | | | | [phone] | | | | | | | | | | | | Garage Mechanic, [facility] | | +--------+ + + + + documented as of this encounter Visit Diagnoses Not on filedocumented in this encounter"
--- OUTSIDE RECORDS SUMMARY | ~2019-05-17 | XMS | Encounter Summary ---
Demographics + + + | Address | [address] [facility] | | | [place] [address] | + + + | Home Phone | | + + + | Preferred Language | Unknown | + + + | Marital Status | | + + + | Confucianism Affiliation | 1077 | + + + | Race | Unknown | + + + | Ethnic Group | Unknown | + + + Author + + + | Author | [facility] | | | and Azana | + + + | Organization | [facility] | | [...] [place], [place] | | | | | [address] | | + + + + + | Helena Doherty | ECON | [place], | | | | | [place] [address] | | + + + + + Care Team Providers + +------+ + | Care Full Decator Operator Name | Role | Phone | [...] | | [place] | [place] [address] | | | | | [address] | [phone] | | | | | [phone] | | | +--------+ + + + [...] | | | | | [place] [address] | | | | | | [phone] | | | | | | | | | | | | Rock CrusherNaomi | | +--------+ + + + + documented as of this encounter Visit Diagnoses Not on filedocumented in this encounter"
--- OUTSIDE RECORDS SUMMARY | ~2019-05-17 | XMS | Encounter Summary ---
Demographics + + + | Address | [address] | | | [place] [address] | + + + | Home Phone [...] | Author | [facility] | | | and Azana | + + + | Organization | [facility] | | [...] [place], [place] | | | | | [address] | | + + + + + | Helena Doherty | ECON | [place], | | | | | [place] [address] | | + + + + + Care Team Providers + +------+ + | Care Ceramics Teacher Name | Role | Phone | [...] + + | 02/09/ | Telephone | [facility] | Agusto Pereira MD | Surgery Appointment | | 2017 | | NEUROSURGERY [address] | [address] | (Check in | | | | [address] | [place] [address] | Instructions) | | | | [place] | [phone] | | | | | [address] | | | | | | [phone] | | | +--------+ + + + [...] | | | | | [place] [address] | | | | | | [phone] | | | | | | | | | | | | Health Science Specialist, [facility] | | +--------+ + + + + documented as of this encounter Visit Diagnoses Not on filedocumented in this encounter"
--- OUTSIDE RECORDS SUMMARY | ~2019-05-17 | XMS | Encounter Summary ---
Demographics + + + | Address | [address] [facility] | | | [place] [address] | + + + | Home Phone | | + + + | Preferred Language | Unknown | + + + | Marital Status | | + + + | Adventism Affiliation | 1077 | + + + | Race | Unknown | + + + | Ethnic Group | Unknown | + + + Author + + + | Author | [facility] | | | and Azana | + + + | Organization | [facility] [...] [place], [place] | | | | | [address] | | + + + + + | Helena Doherty | ECON | [place], | | | | | [place] [address] | | + + + + + Care Team Providers + +------+ + | Care Economics Professor Name | Role | Phone | [...] [address]VE | | | | | [address] [facility] [address] | [place] [address] | | | | | [place] | [phone] | | | | | [address] | | | | | | [phone] | | | +--------+ + + + [...] | | | | | [place] [address] | | | | | | [phone] | | | | | | | | | | | | Cancellation ClerkNaomi | | +--------+ + + + + documented as of this encounter Visit Diagnoses Not on filedocumented in this encounter"
--- OUTSIDE RECORDS SUMMARY | ~2019-05-17 | XMS | Encounter Summary ---
Demographics + + + | Address | [address] [facility] | | | [place] [address] | + + + | Home Phone [...] Author | [facility] | | | and Azana | + + + | Organization | [facility] | [...] [place], [place] | | | | | [address] | | + + + + + | Helena Doherty | ECON | [place], | | | | | [place] [address] | | + + + + + Care Team Providers + +------+ + | Care Linoleum Tile Floor Layer Name | Role | Phone | [...] + + | 01/09/ | Office | [facility] | Osman Beth | Fibromyalgia | | 2012 | Visit | PHYSIATRY [address] | [address], [address] | (Primary Dx); | | | | [place], | [place], [place] | DEGENERATIVE DISC | | | | [place] [address] | [address] | DISEASE, LUMBAR | | | | [phone] | | SPINE; BACK PAIN, | | | | | | LUMBAR; Facet | | | | | | arthritis of lumbar | | | | | | region; Bursitis, | | | | | | hip; Sacroiliitis | | | | | | ([facility]) | +--------+---------+ + + + Social History [...] a prescription. She was advised to not pick and shovel worker the prescription from the pharmacy unless she [...] | | | | | | [place] [address] | | | | | | [phone] | | | | | | | | | | | | Ore Dressing Engineer, [facility] | | +--------+ + + [...]
--- OUTSIDE RECORDS SUMMARY | ~2019-05-17 | XMS | Encounter Summary ---
Demographics + + + | Address | [address] [facility] | | | [place] [address] | + + + | Home Phone | | + + + | Preferred Language | Unknown | + + + | Marital Status | | + + + | Yarsani Affiliation | Unknown | + + + [...] Team Providers + +------+ + | Care Compounding Pharmacy Technician Name | Role | Phone | [...] | Myalgia; | | | | at [facility] 3rd Floor | | Fatigue | | | | [address] | | | | | | Celina Chatman [place], | | | | | | [place] [address] | | | | | | [phone] | | | +--------+------+ + + + [...] | + + + + + | [facility] | [address] | [place] [address] | | | SERVICES, CORE | PARK [...] | + + + + + | [facility] | [address] [facility] | [place] [address] | | | SERVICES, CORE | CELINA [...] | | | LABORATORY | | | ZAMBIAN | | | SERVICES, | | | [...] + + | [facility] | [address] | [place] [address] | | | SERVICES, CORE | PARK [...] | | SERUM - | | | [place] | | | SPEP | | | [...] + | [facility] - | [address] | [place] [address] | | | [place] | | | [...] | + + + + + | [facility] | [address] | [place] [address] | | | SERVICES, SPECIAL | PARK [...] [facility] | [address] | [place] [address] | | | SERVICES, SPECIAL | PARK [...] [facility] | [address] [facility] | [place] [address] | | | CAM, SAMIR | CELINA [...] + + | [facility] | [address] [facility] | [place] [address] | | | SERVICES, SPECIAL | PARK [...] | | | this test in the Cint | | | | | | Laboratory Test | | | | | | Directory | | | | | | ([email or web address]).Performed | | | | | | by [facility],[address] | | | | | | Alisia Velasquez, [facility] | | | | | | [address] | | | | | | [phone].[email or web address]. | | | | | | [facility], Delvis Ugarte, | | | | | [...] [facility] | [address] | [place], [place] | | | [facility] | | [address] | | + + + + + [...] [facility] | [address] | [place] [address] | | | SERVICES, CORE | PARK [...] [facility] | [address] | [place] [address] | | | SERVICES, CORE | PARK [...]
--- OUTSIDE RECORDS SUMMARY | ~2019-05-17 | XMS | Encounter Summary ---
Demographics + + + | Address | [address] [facility] | | | [place] [address] | + + + | Home Phone [...] Team Providers + +------+ + | Care Elastic Attacher Chainstitch Name | Role | Phone | + [...] | 2016 | | Physicians Francy | [address] [facility] | prescription | | | | [address] | [address] [place], | (Methotrexate | | | | [address] Mailcode: | [place] [address] | refills) | | | | [address] Physician's | [phone] | | | | | Francy, 4th Floor | | | | | | [place], [place] | | | | | | [address] | | | | | | [phone] | | | +--------+ + + + [...]
--- OUTSIDE RECORDS SUMMARY | ~2019-05-17 | XMS | Encounter Summary ---
Demographics + + + | Address | [address] [facility] | | | [place] [address] | + + + | Home Phone [...] | [facility] | | | and Azana | + + + | Organization | [facility] [...] [place], [place] | | | | | [address] | | + + + + + | Helena Doherty | ECON | [place], | | | | | [place] [address] | | + + + + + Care Team Providers + +------+ + | Care Database Programmer Name | Role | Phone | [...] | | | bursitis, | Ave | [address] Phone: | | | | | left hip | Stefano, | [phone] | | | | | M70.61 | [place] | Fax: | | | | | (ICD-10-CM) | [address] | [phone] | | | | | - | Phone: | | | | | | Trochanteric | [phone] | | | | | | bursitis, | Fax: | | | | | | right hip | [phone] | | | | | | M79.7 [...] Description | +--------+---------+ + + + | 10/01/ | Office | [facility] | Aiyana Fish, | Neck pain (Primary | | 2019 | Visit | [facility] | PT [address] | Dx); Trochanteric | | | | [address] | [place] | bursitis of both | | | | [place] | [address] | hips; Fibromyalgia | | | | [address] | | | | | | [phone] | | | +--------+---------+ + + + [...] documented as of this encounter Progress Notes KimberlyAiyana aguilar, PT - 10/01/2018 12:45 PM PDTFormatting of this note might be different fro m the original. [facility] [address] [place] [address] Physical Therapy Daily Treatment Note Date: 10/01/2018 Patient Information Patient Name: Ashly Santiago Date of : 1940 Age: 78 y.o. Encounter Diagnoses Code Name Primary? M54.2 Neck pain Yes M70.61, M70.62 Trochanteric bursitis of both hips M79.7 Fibromyalgia Date of Onset: 04/10/2018 Referring Provider: Sophia Bush PA-C Rehab Precautions Office Visit from 04/17/2018 in [facility] PT OP Rehab Precautions Precautions None Rehab Learning Style Office Visit from 04/17/2018 in [facility] PT OP Office Visit fro m 10/19/2016 in [facility] PT OP Learning Style Patient's Optimum Learning Style listening, reading, observation, performance of task lis tening, reading, observation, performance of task Start Time: 1255 Stop time: 1337 Duration: 42 minutes Timed Treatment Codes: 42 minutes # of PT Visits to Date: 19 Subjective: Pt is under a lot of stress as she has been taken off a lot of her pain meds and the CBD oi l is no longer helping. She states that she is in a lot of pain. Pain Assessment: Pain Rating Pre Assessment: 8 Location: neck, knees, low back Objective: Education: encouraged her to take short walks and "keep moving" in ways that she is able wi thout flaring up her pain. Manual Treatment: Myofascial release and positional release therapy: Dural tube mobilizati on, psoas release, right hip, lumbar spine, upper and mid thoracic spine. Assessment: Good response to treatment. Fascial release resulted in improved mobility in the cervical spine with less tightness and less pain reported in the left UT and neck following the sessi on. It appears the pt is having a flare up of symptoms since going off multiple medications. T his coupled with the stress of multiple health issues is likely contributing to her flare up . Plan: Continue with manual therapy and development of home program. Electronically signed by: Aiyana Fish PT, 10/01/2018 14:40 Patient Name: Ashly Santiago/: 1940/ documented in [...] | | | | | [address] [facility] | | | | | | [place] [address] | | | | | | [phone] | | | | | | | | | | | | Computer Aided Design DrafterNaomi | | +--------+ + + + + documented as of this encounter Visit Diagnoses + + | Diagnosis | + + | Neck pain - Primary Cervicalgia | + + | Trochanteric bursitis of both hips Enthesopathy of hip region | + + | Fibromyalgia Mylagia and myositis, unspecified | + + documented in this encounter
--- OUTSIDE RECORDS SUMMARY | ~2019-05-17 | XMS | Encounter Summary ---
Demographics + + + | Address | [address] [facility] | | | [place] [address] | + + + | Home Phone [...] Team Providers + +------+ + | Care Dimension Warehouse Supervisor Name | Role | Phone | [...] | | | | | | at [address] | | | | | | [address] | | | | | | [place], | | | | | | [place] [address] | | | | | | [phone] | | | +--------+------+ + + + [...] | + + + + + | [facility] | [address] | [place] [address] | | | SERVICES, CORE | [address] | | | + + + + + documented in this encounter Visit Diagnoses + + | Diagnosis | + + | Opiate use Opioid abuse, unspecified | + + documented in this encounter"
--- OUTSIDE RECORDS SUMMARY | ~2019-05-17 | XMS | Encounter Summary ---
Demographics + + + | Address | [address] [facility] | | | [place] [address] | + + + | Home Phone [...] | Author | [facility] | | | and Azana | + + + | Organization | [facility] [...] [place], [place] | | | | | [address] | | + + + + + | Helena Doherty | ECON | [place], | | | | | [place] [address] | | + + + + + Care Team Providers + +------+ + | Care Online Marketing Manager Name | Role | Phone | [...] + + | 10/31/ | Office | [facility] | Brendan Orlando MD | Epistaxis (Primary | | 2012 | Visit | OTOLARYNGOLOGY [address] | [address] | Dx) | | | | [address] | [address] [place], | | | | | [place] | [place] [address] | | | | | [address] | [phone] | | | | | [phone] | | | +--------+---------+ + + + [...] MD - 10/31/2012 10:49 AM PDTSee dictation #[id number] signed by Maikol Orlando MD at 10/31/2012 10:53 AM Brendan Kennedy MD - 10/31/2012 12:00 AM PDT ENT AND AUDIOLOGY [address] [place] [address] FAX: [phone] OFFICE VISIT The patient has a long [...] ENT. Brendan Orlando MD / JOB #: [id number] signed by Brendan Orlando MD at 11/04/2012 [...] | | | | | [place] [address] | | | | | | [phone] | | | | | | | | | | | | Glass Bulb Machine Adjuster, [facility] | | +--------+ + + + + documented as of this encounter Visit Diagnoses + + | Diagnosis | + + | Epistaxis - Primary | + + documented in this encounter
--- OUTSIDE RECORDS SUMMARY | ~2019-05-17 | XMS | Clinical Summary ---
Demographics + + + | Address | [address] [facility] | | | [place] [address] | + + + | Home Phone [...] Team Providers + +------+ + | Care Poultry Picking Machine Tender Name | Role | Phone | + +------+ + | Nathan Luevano DO | PCP | | + +------+ + Source Comments [facility] is fully live [facility] and [facility] InPatient.[facility] Allergies + + + + + + [...] | [employer]ETNA | xxxxxxxx | 06/25/19 | [phone] | [address] | Medica | | | MEDICA | | 19-Pre | 6 | [address] | re | | | RE PPO | | sent | | [place], | | | | | | | | [place] | | | | | | | | [address] | | + +--------+ +--------+ + +--------+ | [employer]ETNA MEDICARE | AETNA | [id number] | 06/25/19 | [phone] | [address] | Medica | | | MEDICA | | 14-Pre | 6 | [address] | re | | | RE PPO | | sent | | [place], | | | | | | | | [place] | | | | | | | | [address] | | + +--------+ +--------+ + +--------+ [...] aishwarya | | | 9 (Home) | [address] | + +--------+ +--------+ + + | Ashly Santiago | Person | Self | [birth year] | [address] | | | al/Ji | | 1940 | [phone] | [place] | | | aish[place]arya | | | 9 ([place]) | [address] | + +--------+ +--------+ + +
--- OUTSIDE RECORDS SUMMARY | ~2019-05-17 | XMS | Encounter Summary ---
Demographics + + + | Address | [address] [facility] | | | [place] [address] | + + + | Home Phone [...] Providers + +------+ + | Care Residential Plumber Name | Role | Phone | + +------+ + | Thee Boss MD | PCP | | + +------+ + Encounter Details +--------+ + + + + | Date | Type | Department | Care Team | Description | +--------+ + + + + | 11/17/ | MyChart | Rheumatology at | Tavia Zuniga | RE: Appointment | | 2013 | Encounter | Physicians KALA Fung [address] | | | | | [address] | [address] | | | | | [place] Chatman Mailcode: | [place], [place] | | | | | [address] Physician's | [phone] | | | | | Francy, [facility] Floor | [phone] | | | | | [place], [place] | | | | | | [address] | | | | | | [phone] | | | +--------+ + + + [...]
--- OUTSIDE RECORDS SUMMARY | ~2019-05-17 | XMS | Encounter Summary ---
Demographics + + + | Address | [address] [facility] | | | [place] [address] | + + + | Home Phone [...] Team Providers + +------+ + | Care Cryptographic Center Specialist Name | Role | Phone | [...] | | | | [address] | [place] [address] | | | | | [place], [place] | [phone] | | | | | [address] | | | | | | [phone] | | | +--------+ + + + [...]
--- OUTSIDE RECORDS SUMMARY | ~2019-05-17 | XMS | Encounter Summary ---
Demographics + + + | Address | [address] [facility] | | | [place] [address] | + + + | Home Phone [...] Author | [facility] | | | and Azana | + + + | Organization | [facility] | | | and [...] [place], [place] | | | | | [address] | | + + + + + | Helena Doherty | ECON | [place], | | | | | [place] [address] | | + + + + + Care Team Providers + +------+ + | Care Workers Compensation Manager Name | Role | Phone | + +------+ + | Nathan Luevano DO | PCP | | + +------+ + Encounter Details +--------+ + + + + | Date | Type | Department | Care Team | Description | +--------+ + + + + | 02/07/ | Hospital | [facility] | Agusto Pereira MD | | | 2017 | Encounter | MED CTR XRAY [address] | [address] | | | | | [place] | [place] [address] | | | | | [place] [address] | [phone] | | | | | [phone] | | | | | | | Eveline Maharaj, | | | | | | [address] | | | | | | [place], [place] | | | | | | [...] [place] | | | | | | [place] [address] | | | | | | [phone] | | | | | | | | | | | | Net Front End DeveloperNaomi | | +--------+ + + + [...] ST. | [address] | [place] | [phone] | | [facility] | | [address] | | | - IMAGING | | | | + + + + + documented in this encounter Visit Diagnoses Not on filedocumented in this encounter"
--- OUTSIDE RECORDS SUMMARY | ~2019-05-17 | XMS | Encounter Summary ---
Demographics + + + | Address | [address] [facility] | | | [place] [address] | + + + | Home Phone [...] | [facility] | | | and Azana | + + + | Organization | [facility] | | | and [...] [place], [place] | | | | | [address] | | + + + + + | Helena Doherty | ECON | [place], | | | | | [place] [address] | | + + + + + Care Team Providers + +------+ + | Care Architectural Job Captain Name | Role | Phone | [...] | | | | | | | DC | | | | | | | ARTHDSIS | | | | | | | POST/POSTERO | | | | | | | LATRL/POSTIN | | | | | | | TERBODY | | | | | | | LUMBAR DC | | | | | | | SPINE | | | | | | | FUSN,POST | | | | | | | TECH,EA | | | | | | | ADDNL SGMT | | | | | | | DC LUMBAR | | | | | | [...] | | | | | | SEG DC | | | | | | | LAMINEC/FACE | | | | | | | TECT/FORAMIN | | | | | | | ,EACH ADDNL | | | | | | | DC INSJ | | | | | | | BIOMCHN DEV | | | | | | | INTERVERTEBR | | | | | | | AL DSC SPC | | | | | | | W/ARTHRD DC | | | | | | | [...] + + | 02/14/ | Hospital | [facility] | Agusto Pereira MD | Gait abnormality | | 2017 - | Encounter | MED CTR SURGICAL | [address] | (Primary Dx) | | | | [address] | [place] [address] | | | 02/17/ | | [place] [id number] | [phone] | | | 2016 | | [phone] | | | +--------+ + + + [...] of admission the [facility] a L4-S1. Patient was transferred [...] signed by: Eric Mcmanus, 02/17/2017 8:41 [facility] documented in this encounter Discharge Instructions Instructions [...] seat, and a shower chair [facility]. Take your medication exactly as directed. Don [...] month post op appointment before your appointment. 5318-2518 The [employer]. [address] [place] [address], [place] [address]. All righ ts reserved. This information is [...] might be different f rom the original. [facility] NEUROSURGERY PROGRESS NOTE PATIENT NAME: Ashly Santiago [...] has no apparent deficits with short or prison memory. MOTOR EXAM: Motor strength is stable [...] note might be different from the origin [facility] NEUROSURGERY PROGRESS NOTE PATIENT NAME: Ashly Santiago [...] has no apparent deficits with short or prison memory. MOTOR EXAM: Motor strength is stable [...] Gilmore PA-C - 017 7:38 AM PDT [facility] NEUROSURGERY PROGRESS NOTE PATIENT NAME: Ashly Santiago [...] has no apparent deficits with short or terminal computer operator memory. MOTOR EXAM: Motor strength is stable [...] | | | | | [address] [facility] | | | | | | [place] [address] | | | | | | [phone] | | | | | | | | | | | | Public Service Officer, [place] | | +--------+ + + + [...] | | Jackso | | | n [place] | | | Frame | | | and | | | OSI | | | [place] | | | Flat | | | [...] | | | n | | | [place], | | | OSI | | | [place] | | | Flat | | | [...] | | | | Pharmacist Nazanin Trejo, [facility] | | | | [...]
--- OUTSIDE RECORDS SUMMARY | ~2019-05-17 | XMS | Encounter Summary ---
Demographics + + + | Address | [address] [facility] | | | [place] [address] | + + + | Home Phone [...] | Author | [facility] | | | and Azana | + + + | Organization | [facility] | | | and [...] [place], [place] | | | | | [address] | | + + + + + | Helena Doherty | ECON | [place], | | | | | [place] [address] | | + + + + + Care Team Providers + +------+ + | Care Family Lawyer Name | Role | Phone | + [...] + | 12/25/ | Telephone | [facility] | Osman Beth | Appointment | | 2017 | | PHYSIATRY [address] | [address], [address] | | | | | [place], | [place], [place] | | | | | [place] [address] | [address] | | | | | [phone] | | | +--------+ + + + [...] | | | | | [place] [address] | | | | | | [phone] | | | | | | | | | | | | Slip FillerNaomi | | +--------+ + + + + documented as of this encounter Visit Diagnoses Not on filedocumented in this encounter"
--- OUTSIDE RECORDS SUMMARY | ~2019-05-17 | XMS | Encounter Summary ---
Demographics + + + | Address | [address] [facility] | | | [place] [address] | + + + | Home Phone [...] + | Author | [facility] | | | and [place]ana | + + + | Organization | [facility] | | [...] [place], [place] | | | | | [address] | | + + + + + | Helena Doherty | ECON | [place], | | | | | [place] [address] | | + + + + + Care Team Providers + +------+ + | Care Demand Planner Name | Role | Phone | [...] [address] | | | | n | [place] INJECT | [address] | [address] | | | | | TRIGGER | [address] | [place], | | | | | POINT, [address]+ | [place], | [place] [address] | | | | | [place] | [place] [address] | Phone: | | | | | OFFICE | Phone: | [phone] | | | | | OUTPATIENT | [phone] | Fax: | | | | | VISIT 15 | Fax: | [phone] | | | | | [place] | [phone] | | | | | | LIDOCAINE [...] [address] | neck | | | | [facility], | [address] [place] | | | | | [place] [address] | [place] [address] | | | | | [phone] | [phone] | | | | | | | [...] puncture (pneumothorax) Nerve damage Date Last Reviewed: 09/23/201719998541-6138 The [employer]. [address] [place] [address], [place] [id number]. All righ ts reserved. This information is [...] | | | | | | [place] [address] | | | | | | [phone] | | | | | | | [...]
--- OUTSIDE RECORDS SUMMARY | ~2019-05-17 | XMS | Encounter Summary ---
Demographics + + + | Address | [address] [facility] | | | [place] [address] | + + + | Home Phone [...] | Author | [facility] | | | and Azana | + + + | Organization | [facility] | | | and Azana [...] [place], [place] | | | | | [address] | | + + + + + | Helena Doherty | ECON | [place], | | | | | [place] [address] | | + + + + + Care Team Providers + +------+ + | Care Mud Trucker Name | Role | Phone | + [...] + + | 11/26/ | Documentati | [facility] | Aiyana Fish, | Discharge Without | | 2019 | on | [facility] | PT [address] | Visit | | | | [address] | [place] | | | | | [place] | [address] | | | | | [address] | | | | | | [phone] | | | +--------+ + + + [...] Aiyana Fish PT - 11/26/2018 8:46 AM [facility] [address] [place] [address] Physical Therapy Discharge Note This discharge is [...] | | | | | [place] [address] | | | | | | [phone] | | | | | | | | | | | | Credit Rating Checker, Naomi | | +--------+ + + + + documented as of this encounter Visit Diagnoses + + | Diagnosis | + + | Neck pain Cervicalgia | + + | Trochanteric bursitis of both hips Enthesopathy of hip region | + + | Fibromyalgia Mylagia and myositis, unspecified | + + documented in this encounter"
--- OUTSIDE RECORDS SUMMARY | ~2019-05-17 | XMS | Encounter Summary ---
Demographics + + + | Address | [address] [facility] | | | [place] [address] | + + + | Home Phone [...] Author | [facility] | | | and Azana | + + + | Organization | [facility] | | | and [...] [place], [place] | | | | | [address] | | + + + + + | Helena Doherty | ECON | [place], | | | | | [place] [address] | | + + + + + Care Team Providers + +------+ + | Care Bowling Ball Weigher And Packer Name | Role | Phone | [...] [address] | | | | | [place] [address], | [place] | | | | | [place] [address] | [address] | | | | | [phone] | | | +--------+ + + + [...] | | | | | [place] [address] | | | | | | [phone] | | | | | | | | | | | | [place], [place] | | +--------+ + + + + documented as of this encounter Visit Diagnoses Not on filedocumented in this encounter"
--- OUTSIDE RECORDS SUMMARY | ~2019-05-17 | XMS | Encounter Summary ---
Demographics + + + | Address | [address] [facility] | | | [place] [address] | + + + | Home Phone [...] Team Providers + +------+ + | Care Charge Account Identification Clerk Name | Role | Phone | [...] | | 2013 | Encounter | Physicians KAAL Fung [address] | [place] | | | | [address] | [address] | | | | | Amara Chatman Mailcode: | [place], [place] | | | | | [address] Physician's | [address] | | | | | Francy, [address] Floor | [phone] | | | | | [place], [place] | | | | | | [address] | | | | | | [phone] | | | +--------+ + + + [...]
--- OUTSIDE RECORDS SUMMARY | ~2019-05-17 | XMS | Encounter Summary ---
Demographics + + + | Address | [address] [facility] | | | [place] [address] | + + + | Home Phone [...] | Author | [facility] | | | and [place] | + + + | Organization | [facility] | [...] [place], [place] | | | | | [address] | | + + + + + | Helena Doherty | ECON | [place], | | | | | [place] [address] | | + + + + + Care Team Providers + +------+ + | Care Travel Accommodations Rater Name | Role | Phone | + [...] and | Cervicalgia | FABIAN Morales | FAIBAN Morales | | | | Rehabilitatio | Procedures | [address] | [address] | | | | n | [place] INJECT | [address] | [address] | | | | | TRIGGER | [address] | [place], | | | | | POINT, 3+ | [place], | [place] [address] | | | | | [place] | [place] [address] | Phone: | | | | | OFFICE | Phone: | [phone] | | | | | OUTPATIENT | [phone] | Fax: | | | | | VISIT 15 | Fax: | [phone] | | | | | [place] | [phone] | | | | | | LIDOCAINE [...] | (Primary Dx) | | | | [place], | [address] [place] | | | | | [place] [address] | [place] [address] | | | | | [phone] | [phone] | | | | | | | [...] as needed for trigger point injections. Andrew Miranad PA-C, 01/21/18 documented in this en counter [...] | | | | | [place] [address] | | | | | | [phone] | | | | | | | | | | | | Plate GrainerNaomi | | +--------+ + + + + documented as of this encounter Visit Diagnoses + + | Diagnosis | + + | NO DX AVAILABLE - Primary NO DIAGNOSIS LISTED ON ORDER | + + documented in this encounter
--- OUTSIDE RECORDS SUMMARY | ~2019-05-17 | XMS | Encounter Summary ---
Demographics + + + | Address | [address] | | | [place] [address] | + + + | Home Phone | | + + + | Preferred Language | Unknown | + + + | Marital Status | | + + + | Druze Affiliation | Unknown | + + + | Race | White | + + + | Ethnic Group | Not or | + + + Author + + + | Author | [facility] | + + + | Organization | [facility] | + + + | Address | Unknown | + + + | Phone | Unavailable | + + + Support + + +---------+ + | Name | Relationship | Address | Phone | + + +---------+ + | Alon Santiago | ECON | Unknown | | + + +---------+ + Care Team Providers + +------+ + | Care Radiology Therapist Name | Role | Phone | + [...] | | | | 4.0) ([facility]) | [place] [address] | [address] | | | | | Myalgia and | [address] | [address] [place], | | | | | myositis, | [place], | [place] | | | | | unspecified | [place] [address] | [address] | | | | | Procedures | Phone: | Phone: | | | | | [place] | [phone] | [phone] | | | | | OFFICE/OUTPT | Fax: | Fax: | | | | | | [phone] | [phone] | | | | | VISIT,EST,LE | [...] 2016 | Visit | Physicians Francy | [address] | involving both | | | | [address] | [address] [place], | hands with positive | | | | Amara Chatman Mailcode: | [place] [address] | rheumatoid factor | | | | OP09 Physician's | [phone] | ([facility]) (Primary Dx) | | | | [address], 4th Floor | | | | | | [place], [place] | | | | | | [address] | | | | | | [phone] | | | +--------+---------+ + + + [...] others may occur. Call your doctor for Coin advice about side effects. You may report side effects to FDA at 2-338-TOG-0942. What other drugs will affect pilocarpine? Other drugs may interact with pilocarpine, including prescription and vnvn-sxw-ifqjzft medi cines, vitamins, and herbal products. Tell [...] to ensure that the information provided by [employer]. ( 'Multum') is accurate, up-to-date, and complete, but no guarantee is made to that effect. Dr kirill information contained herein may be time sensitive. [employer] information has been compiled for use by healthcare practitioners and consumers in the [place] and therefore [employer] does not warrant that uses outside of the [place] are appropriate, unless specifically indicated otherwise. [facility] drug information does not endorse drugs, diagnose patients or recommend therapy. [facility] drug information is an informational resource designed [...] effective or appropriate for any given patient. [employer] does not assume any respon sibility for any aspect of healthcare administered with the aid of information Multum provid es. The information contained herein is not intended to cover all possible uses, directions, precautions, warnings, drug interactions, allergic reactions, or adverse effects. If you quach ve questions about the drugs you are taking, check with your doctor, nurse or pharmacist. Copyright 2984-5912 [employer]. Version: 2.02. Revision date: 12/08/2013. This information does not replace the advice of a doctor. [employer], [employer] disclaim s any warranty or liability for your use of this information. Content Version: 10.8.418744 cevimeline Pronunciation: se kashmir foster Brand: Evoxac [...] dose adjustment or special tests to saf rigboerto take cevimeline. FDA category C. This medication [...] may report side effects to FDA at 7-865-DVC-6298. What other drugs will affect cevimeline? Before [...] your doctor about all the prescription and locj-nzy-huqrwxs medications you use. This in cludes vitamins, [...] to ensure that the information provided by [employer]. ( 'Multum') is accurate, up-to-date, and complete, but no guarantee is made to that effect. Dr roy information contained herein may be time sensitive. [employer] information has been compiled for use by healthcare practitioners and consumers in the [place] and therefore [employer] does not warrant that uses outside of the [place] are appropriate, unless specifically indicated otherwise. [employer] drug information does not endorse drugs, diagnose patients or recommend therapy. [facility] drug information is an informational resource designed [...] effective or appropriate for any given patient. [employer] does not assume any respon sibility for any aspect of healthcare administered with the aid of information [facility] provid es. The information contained herein is not intended to cover all possible uses, directions, precautions, warnings, drug interactions, allergic reactions, or adverse effects. If you quach ve questions about the drugs you are taking, check with your doctor, nurse or pharmacist. Copyright 6289-9347 [employer]. Version: 2.07. Revision date: 06/08/2010. This information does not replace the advice of a doctor. Comecer, Incorporated disclaim s any warranty or liability for your use of this information. Content Version: 10.8.326834 documented in this encounter Progress Notes Mami [...] labs but Dr Shelton, who was her Heat Treating Bluer, was not sure if the symptoms were [...] major issue. Plan: I spent 25 minutes zkbd-du-uqla with the patient with over 50% in [...] Spencer Wasserman. MAMI LUCIA MD RHEUMATOLOGY ATTENDING [address] [place] [address] Mailcode: Pv35 [facility] [place] [address] documented in this encou nter Plan of [...] by | | | | | | [employer] I'mOK,500 | | | | | | Alisia Velasquez, [facility] | | | | | | [address] | | | | | | [phone].[facility]. | | | | | | Delvis [...] [facility] | [address] | [place], [place] | | | UNIV PTH - INTFC | | [address] | | + + + + + [...] by | | | | | | [employer],[address] | | | | | | [address], [facility] [place] | | | | | | [address] | | | | | | [phone].aruplab. | | | | | | Delvis [...] [facility] | [address] | [place], [place] | | | UNIV PTH - INTFC | | [address] | | + + + + + [...] by | | | | | | [employer],[address] | | | | | | [facility], [facility] [place] | | | | | | [address] | | | | | | [phone].EarlySense. | | | | | | dinorah, [...] [facility] | [address] | [place], [place] | | | UN[facility] PTH - INTFC | | [address] | | + + + + + [...] | + + + + + | [facility] | [address] | [place] [address] | | | SERVICES, CORE | PARK [...] | | | LABORATORY | | | BURMESE | | | SERVICES, | | | [...] | + + + + + | [facility] | [address] | [place] [address] | | | SERVICES, CORE | [address] | | | + + + + + documented in this encounter Visit Diagnoses + + | Diagnosis | + + | Rheumatoid arthritis involving both hands with positive rheumatoid factor (HCC) - | | Primary | + + documented in this encounter
--- OUTSIDE RECORDS SUMMARY | ~2019-05-17 | XMS | Encounter Summary ---
Demographics + + + | Address | [address] [facility] | | | [place] [address] | + + + | Home Phone [...] Author | [facility] | | | and Azana | + + + | Organization | [facility] | [...] [place], [place] | | | | | [address] | | + + + + + | Helena Doherty | ECON | [place], | | | | | [place] [address] | | + + + + + Care Team Providers + +------+ + | Care Absorption Plant Operator Helper Name | Role | Phone | + [...] | [address] | [place] [address] | | | | | MARC[place] | [phone] | | | | | [address] | | | | | | [phone] | | | +--------+ + + + [...] | | | | | [place] [address] | | | | | | [phone] | | | | | | | | | | | | Singeing Torch OperatorNaomi | | +--------+ + + + + documented as of this encounter Visit Diagnoses Not on filedocumented in this encounter"
--- OUTSIDE RECORDS SUMMARY | ~2019-05-17 | XMS | Encounter Summary ---
Demographics + + + | Address | [address] | | | [place] [address] | + + + | Home Phone [...] | Author | [facility] | | | and Azana | + + + | Organization | [facility] | | | and [...] [place], [place] | | | | | [address] | | + + + + + | Helena Doherty | ECON | [place], | | | | | [place] [address] | | + + + + + Care Team Providers + +------+ + | Care Shearer Screen Measurer And Trimmer Name | Role | Phone | [...] [address] | | | | | [place], | [address] [place] | | | | | [place] [address] | [place] [address] | | | | | [phone] | [phone] | | | | | | | [...] | | | | | [place] [address] | | | | | | [phone] | | | | | | | | | | | | Rhinestone Setter, [facility] | | +--------+ + + + + documented as of this encounter Visit Diagnoses Not on filedocumented in this encounter"
--- OUTSIDE RECORDS SUMMARY | ~2019-05-17 | XMS | Encounter Summary ---
Demographics + + + | Address | [address] [facility] | | | [place] [address] | + + + | Home Phone [...] Team Providers + +------+ + | Care Enterprise Mobility Architect Name | Role | Phone | [...] 2012 | Encounter | Physicians Francy Donato, PULP MIXER [address] | | | | | [address] | [address] | | | | | Amara Chatman Mailcode: | [place], [place] | | | | | OP09 Physician's | [address] | | | | | Francy, [facility] Floor | [phone] | | | | | [place], [place] | | | | | | [address] | | | | | | [phone] | | | +--------+ + + + [...]
--- OUTSIDE RECORDS SUMMARY | ~2019-05-17 | XMS | Encounter Summary ---
Demographics + + + | Address | [address] [facility] [address] | | | [place] [address] | + + + | Home Phone [...] Author | [facility] | | | and Azana | + + + | Organization | [facility] | [...] [place], [place] | | | | | [address] | | + + + + + | Helena Doherty | ECON | [place], | | | | | [place] [address] | | + + + + + Care Team Providers + +------+ + | Care Bloom Conveyor Operator Name | Role | Phone | [...] | | y | [address] | [place], [place] | | | | | | [address] | [address] | | | | | | [place], | Phone: | | | | | | [place] [address] | [phone] | | | | | | Phone: | Fax: | | | | | | [phone] | [phone] | | | | | | Fax: | | | | | | | [phone] | | +--------+--------+ + + + + [...] | | [address] | [place] [address] | (Primary Dx); | | | | M[place] | [phone] | Spondylolisthesis of | | | | [address] | | cervical region; | | | | [phone] | Onesimo Oliveira | Foraminal stenosis | | | | | FABIAN Huff [address] | of cervical region | | | | | [address] | | | | | | [place], [place] | | | | | | [address] | | | | | | | [...] encounter Patient Instructions Patient Instructions Amara Adkins, Crane Oiler - 07/03/2018 12:30 PM PSTIt was gr [...] research this procedure more by going to: [email or web address] Click the Treatment Options link on the [...] time. Electronical ly signed by Amara Adkins, Crane Oiler at 07/03/2018 1:50 PM PST documented in this encounter Progress Notes Agusto Pereira MD - 07/03/2018 12:30 PM PSTFormatting of this note might be different from t he original. Agusto Pereira MD and Onesimo Oliveira PA-C. [address] [facility], [address] [place] [address] PHONE: FAX: NEUROSURGERY HISTORY AND PHYSICAL EXAMINATION [...] History: Procedure Laterality Date APPENDECTOMY 1959 Exploratory; [place] BLADDER SUSPENSION 2005 with Rectocele repair; Dr. Reid and Dr. Watkins BUNIONECTOMY 04/10/2007 Jan[place] Bunion; Dr. Db Berrios CATARACT REMOVAL Bilateral 1996 [facility] CHOLECYSTECTOMY, LAPAROSCOPIC 07/11/2011 Dr. Marquez COLONOSCOPY 2004 [facility] COLONOSCOPY N/A 05/23/2017 Procedure: COLONOSCOPY; Surgeon: Joshua Hilliard MD; Location: [facility] EGD AND COLONOSCOPY 07/06/[address] [facility] [address]. Jc EGD AND COLONOSCOPY 2010 ELECTROCARDIOGRAM 05/19/2009 Dr. Boss ELECTROCARDIOGRAM 08/12/2009 Dr. Radha Stafford; [facility] 07/07/2011 [facility]; Dr. Marquez FINGER TRIGGER RELEASE Right 05/28/2014 Middle finger; Dr. Longo [place] FINGER TRIGGER RELEASE FOOT NEUROMA SURGERY Left 1998 HEEL SPUR SURGERY Right 1997 Dr. Berrios HYSTERECTOMY, TOTAL ABDOMINAL 1972 [place] LUMBAR SPINE SURGERY Anterior 02/14/2017 Procedure: L4-5 Lateral Anterior Interbody Fusion, L5-S1 Transforaminal Lumbar Interbody F usion; Surgeon: Agusto Pereira MD; Location: [facility] OR NASAL SEPTUM SURGERY 06/06/2016 Dr. Lindsey; [facility] PERINEAL SKIN BRIDGE 02/[address] Reid RECTOCELE REPAIR 2006 with bladder suspension; Dr. Reid and Dr. Watkins RETINAL DETACHMENT SURGERY 1997 Dr. Andrade ROTATOR CUFF REPAIR Right 04/20/2015 Ruptured and Tendon repair Dr. Jesus [facility] TONSILLECTOMY [address] [place], [place] CURRENT MEDICATIONS: Current Outpatient Prescriptions Medication Sig [...] no apparent deficits with short or senior care memory. CRANIAL NERVES: II: Acuity is intact. [...] Intrinsics 5 5 Ulnar Intrinsics 5 5 Equal Opportunity Assistant Strength 5 5 Hip Flexion 5 5 [...] in this documentation, as scribed by CHAI Rojsa in my presence, and it is both accurate and complete. ELECTRONICALLY SIGNED BY: Agusto Pereira MD, and Onesimo Oliveira PA-C. 07/03/2018 13:55 Portions of this report were transcribed using Powered voice recognition software. A lthough effort was [...] | | | | | | [place] [address] | | | | | | [phone] | | | | | | | | | | | | Brass PolisherNaomi | | +--------+ + + + + [...]
--- OUTSIDE RECORDS SUMMARY | ~2019-05-17 | XMS | Encounter Summary ---
Demographics + + + | Address | [address] | | | [place] [address] | + + + | Home Phone | | + + + | Preferred Language | Unknown | + + + | Marital Status | | + + + | Episcopalian Affiliation | Unknown | + + + [...] Team Providers + +------+ + | Care Fitting Room Associate Name | Role | Phone | [...] | | | | | | at [address] | | | | | | [address] | | | | | | Celina [place], | | | | | | [place] [address] | | | | | | [phone] | | | +--------+------+ + + + [...] [facility] | [address] | [place] [address] | | | SERVICES, CORE | PARK [...] | + + + + + | [facility] [address] | [address] | [place] [address] | | | SERVICES, CORE | [address] [...] | | | LABORATORY | | | ENGLISH | | | SERVICES, | | | [...] [facility] | [address] | [place] [address] | | | SERVICES, CORE | [address] | | | + + + + + documented in this encounter Visit Diagnoses + + | Diagnosis | + + | Rheumatoid arthritis | + + documented in this encounter"
--- OUTSIDE RECORDS SUMMARY | ~2019-05-17 | XMS | Encounter Summary ---
Demographics + + + | Address | [address] [facility] [facility] | | | [place] [address] | + + + | Home Phone | | + + + | Preferred Language | Unknown | + + + | Marital Status | | + + + | Bahai Affiliation | 1077 | + + + | Race | Unknown | + + + | Ethnic Group | Unknown | + + + Author + + + | Author | [facility] | | | and Azana | + + + | Organization | [facility] | | | and [...] [place], [place] | | | | | [address] | | + + + + + | Helena Doherty | ECON | [place], | | | | | [place] [address] | | + + + + + Care Team Providers + +------+ + | Care Master Hearth Technician Name | Role | Phone | [...] | | disc | [place] | [address] Phone: | | | | | disease, | [address] | [phone] | | | | | lumbar | Phone: | Fax: | | | | | Lumbar | [phone] | [phone] | | | | | foraminal | Fax: | | | | | | stenosis | [phone] | | | | | | Fibromyalgia [...] Description | +--------+---------+ + + + | 11/01/ | Office | [facility] | [place], | Acute left-sided low | | 2017 | Visit | MED CTR THERAPY PT | [address] | back pain with | | | | OP [address] | [facility], | sciatica, sciatica | | | | [place] | [place] [address] | laterality | | | | [address] | [phone] | unspecified (Primary | | | | [phone] | | Dx); Sacroiliitis | | | | | Aiyana Fish S, PT | ([facility]); Fibromyalgia | | | | | [address] | | | | | | [place] | | | | | | [address] | | | | | | | [...] Progress Notes Aiyana Fish S, PT - 11/01/2016 1:10 PM PDTFormatting of this note might be different fro m the original. [facility] CTR THERAPY PT OP [address] [place] [address] Physical Therapy Daily Treatment Note Date: 11/01/2016 Patient Information Patient Name: Ashly Santiago Date of : 1940 Age: 76 y.o. Encounter Diagnoses Code Name Primary? M54.40 Acute left-sided low back pain with sciatica, sciatica laterality unspecified Alejo solorzano M46.1 Sacroiliitis (HCC) M79.7 Fibromyalgia Date of Onset: 06/08/2016 Referring Provider: Anna Aponte PA-C Rehab Precautions Office Visit from 10/19/2016 in [facility] CTR THERAPY PT OP Rehab Precautions Precautions None Rehab Learning Style Office Visit from 10/19/2016 in [facility] CTR THERAPY PT OP Learning Style Patient's Optimum Learning Style listening, reading, observation, performance of task Start Time: 1305 Stop time: 1410 Duration: 65 minutes Timed Treatment Codes: 60 minutes # of PT Visits to Date: 3 Subjective: Pt reports that she felt better for a day following the last treatment and she is in less p ain today than she was then. She has had a consult with Dr Pereira and he is recommending surge ry. She would like to wait until January as her daughter will still be here visiting Pain Assessment: Pain Rating Pre Assessment: 5 Pain Rating Post Assessment: 4 Location: lower back and left leg. Also upper right thoracic spine. Objective: Manual Treatment: Myofascial release and positional release therapy: Dural tube mobilizati on, right thoracic paraspinal mm, sacrum, and cervical spine with dural tube traction and re lease of dural adhesions. Assessment: Good response to treatment. Fascial release resulted in improved mobility in the right tho racic paraspinal fascia which in turn reduced the strain on the lower back and sacrum follow ing the session. Plan: Continue with manual therapy and development of home program. The goal is to reduce the fa scial tension in all parts of her back to help with the undue strain it is causing her lower back and scarum. This will hopefully reduce her pain and improve function until she has martell rgery. Electronically signed by: Aiyana Fish PT, 11/01/2016 16:08 Patient Name: Ashly Real Santiago/: 1940/ documented [...] [place] | | | | | | [place] [address] | | | | | | [phone] | | | | | | | | | | | | Surveyor HydrographicNaomi | | +--------+ + + + + [...]
--- OUTSIDE RECORDS SUMMARY | ~2019-05-17 | XMS | Encounter Summary ---
Demographics + + + | Address | [address] [facility] | | | [place] [address] | + + + | Home Phone [...] + | Author | [facility] | | | and Azana | + + + | Organization | [facility] | | [...] [place], [place] | | | | | [address] | | + + + + + | Helena Doherty | ECON | [place], | | | | | [place] [address] | | + + + + + Care Team Providers + +------+ + | Care Uplands Division Director Name | Role | Phone | [...] | Degenerative | [address] | [place], [place] | | | | | disc | [place] | [address] Phone: | | | | | disease, | [address] | [phone] | | | | | lumbar | Phone: | Fax: | | | | | Lumbar | [phone] | [phone] | | | | | foraminal | Fax: | | | | | | stenosis | [phone] | | | | | | Fibromyalgia [...] + + | 11/01/ | Office | [facility] | [place], | Acute left-sided low | | 2017 | Visit | MED CTR THERAPY PT | [address]IAN [address] | back pain with | | | | OP [address] | [facility], | sciatica, sciatica | | | | [place] | [place] [address] | laterality | | | | [address] | [phone] | unspecified (Primary | | | | [phone] | | Dx); Sacroiliitis | | | | | Aiyana Fish S, PT | ([facility]); Fibromyalgia | | | | | [address] | | | | | | [place] | | | | | | [address] | | | | | | | [...] be different fro m the original. [facility] CTR THERAPY PT OP [address] [place] [address] Physical Therapy Daily Treatment Note Date: 11/01/2016 Patient Information Patient Name: Ashly Santiago Date of : 1940 Age: 76 y.o. Encounter Diagnoses Code Name Primary? M54.40 Acute left-sided low back pain with sciatica, sciatica laterality unspecified Alejo solorzano M46.1 Sacroiliitis (HCC) M79.7 Fibromyalgia Date of Onset: 06/08/2016 Referring Provider: Anna Aponte PA-C Rehab Precautions Office Visit from 10/19/2016 in [facility] CTR THERAPY PT OP Rehab Precautions Precautions None Rehab Learning Style Office Visit from 10/19/2016 in [facility] CTR THERAPY PT OP Learning [...] | | | | | | [place] [address] | | | | | | [phone] | | | | | | | | | | | | Field HandymanNaomi | | +--------+ + + + + [...]
--- OUTSIDE RECORDS SUMMARY | ~2019-05-17 | XMS | Encounter Summary ---
Demographics + + + | Address | [address] [facility] | | | [place] [address] | + + + | Home Phone [...] Team Providers + +------+ + | Care Meat Packager Name | Role | Phone | + +------+ + | Thee Boss MD | PCP | | + +------+ + Encounter Details +--------+------+ + + + | Date | Type | Department | Care Team | Description | +--------+------+ + + + | 07/09/ | Lab | Laboratory, | | Rheumatoid arthritis | | 2013 | | Specimen Collection | | ([facility]) | | | | at [address] | | | | | | [address] | | | | | | [place], | | | | | | [place] [address] | | | | | | [phone] | | | +--------+------+ + + + [...] [facility] | [address] | [place] [address] | | | SERVICES, CORE | PARK [...] + | [facility] | [address] [facility] | [place] [address] | | | SERVICES, CORE | PARK [...] + + + + + | [facility] | [address] | [place] [address] | | | SERVICES, CORE | [address] | | | + + + + + documented in this encounter Visit Diagnoses + + | Diagnosis | + + | Rheumatoid arthritis(714.0) ([facility]) Rheumatoid arthritis | + + documented in this encounter"
--- OUTSIDE RECORDS SUMMARY | ~2019-05-17 | XMS | Encounter Summary ---
Demographics + + + | Address | [address] [facility] | | | [place] [address] | + + + | Home Phone [...] | Author | [facility] | | | and Azana | + + + | Organization | [facility] | | | and Azana [...] [place], [place] | | | | | [address] | | + + + + + | Helena Doherty | ECON | [place], | | | | | [place] [address] | | + + + + + Care Team Providers + +------+ + | Care Training Generalist Name | Role | Phone | + +------+ + | Nathan Luevano DO | PCP | | + +------+ + Encounter Details +--------+ + + + + | Date | Type | Department | Care Team | Description | +--------+ + + + + | 10/29/ | Orders Only | [facility] | Mika Rowe MD | | | 2019 | | NEPHROLOGY [place] | [address] [place] | | | | | [address] [place] | [address] [place], [place] | | | | | [address] [place], [place] | [address] | | | | | [address] | | | | | | [phone] | | | +--------+ + + + [...] | | | | | [place] [address] | | | | | | [phone] | | | | | | | | | | | | Comedian, [facility] | | +--------+ + + + [...]
--- OUTSIDE RECORDS SUMMARY | ~2019-05-17 | XMS | Encounter Summary ---
Demographics + + + | Address | [address] | | | [place] [address] | + + + | Home Phone [...] | [facility] | | | and Azana | + + + | Organization | [facility] | | | and [...] [place], [place] | | | | | [address] | | + + + + + | Helena Doherty | ECON | [place], | | | | | [place] [address] | | + + + + + Care Team Providers + +------+ + | Care Director Loss Prevention Name | Role | Phone | + [...] | | | bursitis, | Ave | [address] Phone: | | | | | left hip | Stef[place], | [phone] | | | | | M70.61 | [place] | Fax: | | | | | (ICD-10-CM) | [address] | [phone] | | | | | - | Phone: | | | | | | Trochanteric | [phone] | | | | | | bursitis, | Fax: | | | | | | right hip | [phone] | | | | | | M79.7 [...] + | 10/01/ | Office | [facility] | Aiyana Fish, | Neck pain (Primary | | 2019 | Visit | [facility] | PT [address] | Dx); Trochanteric | | | | [address] | [place] | bursitis of both | | | | [place] | [address] | hips; Fibromyalgia | | | | [address] | | | | | | [phone] | | | +--------+---------+ + + + [...] different fro m the original. [facility] [address] [place] [address] Physical Therapy Daily Treatment Note Date: 10/01/2018 Patient Information Patient Name: Ashly Santiago Date of : 1940 Age: 78 y.o. Encounter Diagnoses Code Name Primary? M54.2 Neck pain Yes M70.61, M70.62 Trochanteric bursitis of both hips M79.7 Fibromyalgia Date of Onset: 04/10/2018 Referring Provider: Sophia Bush PA-C Rehab Precautions Office Visit from 04/17/2018 in [facility] PT OP Rehab Precautions Precautions None Rehab Learning Style Office Visit from 04/17/2018 in [facility] PT OP Office Visit fro m 10/19/2016 in [facility] PT OP Learning Style [...] | | | | | [address] [facility] | | | | | | [place] [address] | | | | | | [phone] | | | | | | | | | | | | Head GreenskeeperNaomi | | +--------+ + + + + documented as of this encounter Visit Diagnoses + + | Diagnosis | + + | Neck pain - Primary Cervicalgia | + + | Trochanteric bursitis of both hips Enthesopathy of hip region | + + | Fibromyalgia Mylagia and myositis, unspecified | + + documented in this encounter
--- OUTSIDE RECORDS SUMMARY | ~2019-05-17 | XMS | Encounter Summary ---
Demographics + + + | Address | [address] [facility] | | | [place] [address] | + + + | Home Phone [...] Team Providers + +------+ + | Care Psychologist Industrial Organizational Name | Role | Phone | + [...] Nell | | | | | 4.0) ([facility]) | PA [address] | [address] | | | | | Myalgia and | Lilian Aden | [address] [place], | | | | | myositis, | [place], | [place] | | | | | unspecified | [place] [address] | [address] | | | | | | Phone: | Phone: | | | | | | [phone] | [phone] | | | | | | Fax: | Fax: | | | | | | [phone] | [phone] | +--------+--------+ + + + + Encounter Details +--------+---------+ + + + | Date | Type | Department | Care Team | Description | +--------+---------+ + + + | 04/07/ | Office | Rheumatology at | Tavia Zuniga | Fibromyalgia | | 2012 | Visit | Physicians Francy Donato, INDUSTRIAL HEALTH ENGINEER [address] | (Primary Dx); RA | | | | [address] | [address] | (rheumatoid | | | | Celina Chatman Mailcode: | [place], [place] | arthritis) ([facility]); | | | | OP09 Physician's | [address] | Left ankle swelling; | | | | [address], 4th Floor | [phone] | Macrocytosis | | | | [place], [place] | | without anemia; | | | | [address] | | Elevated TSH; RLS | | | | [phone] | | (restless legs | | | [...] questions you may have. Recommendations: 1) Website: [email or web address] 2) Book: "Fibromyalgia: Woman's Tool Kit" by Renita Urban and Shamir Prajapati. 3) Book: "Figuring out Fibromyalgia" by Marcio Celestin. documented in this encounter Progress Notes Alexei ARMENDARIZ, Tavia Donato - 04/07/2013 2:30 PM PDTFormatting of this note might be differen t from the original. New Fibromyalgia Patient Consult: This patient was referred by: OBEY Arevalo [facility] [address] [place] [address], . Your patient, Ms. Santiago, a 73 y.o. female, was evaluated in the [facility] o n April 07, [...] 10/10 on a bad day. She experiences custom dressmaker stiffness for 30 minutes and has recent [...] Toe walking: unable. Tandem gait: normal. Labs: Aginova 3Touch Component Name Value Range CYCLIC PEPTIDE IGG [...] SENSITIVITY IN RA PATIENTS. 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 5. [...] the fibromyalgia clinic following consultation with an [facility] dehydrogenation converter operator. [facility] [address] [place] [address] Mailcode: Op09 [place] [address] documented in th is encounter Plan of [...] [facility] | [address] | [place] [address] | | | SERVICES, SPECIAL | PARK [...] [facility] | [address] | [place] [address] | | | SERVICES, SPECIAL | PARK [...] | + + + + + | [facility] | [address] | [place] [address] | | | SAMIR LEVY | CELINA [...] - | | | | | | [place] | | + +-------+ + + + + + | Specimen | + + | Blood - Blood | + + + + + + + | Performing | Address | City/State/Zipcode | Phone Number | | Organization | | | | + + + + + | [facility] | [address] | [place] [address] | | | [place] | | | [...] | + + + + + | [facility] | [address] | [place] [address] | | | SERVICES, CORE | CELINA [...] + | [facility] | [address] | [place] [address] | | | [place] | | | [...] + + + + + + | PAYROLL PROCESSOR AB | Negative | Negative | [facility] [...] 7.0-10 | SERVICES, | | >10 Crystal PAYROLL PROCESSOR AB U/ml <5.0 5.0-10 | SPECIAL IMM [...] | + + + + + | [facility] | [address] | [place] [address] | | | SERVICES, SPECIAL | PARK [...] | + + + + + | [facility] | [address] [facility] | [place] [address] | | | SERVICES, CORE | PARK [...] | + + + + + | [facility] | [address] [facility] | [place] [address] | | | SERVICES, CORE | PARK [...] [facility] | [address] | [place] [address] | | | SAMIR LEVY | PARK [...] | + + + + + | [facility] - | [address] | [place] [address] | | | [place] | | | | + + + [...]
--- OUTSIDE RECORDS SUMMARY | ~2019-05-17 | XMS | Encounter Summary ---
Demographics + + + | Address | [address] [facility] | | | [place] [address] | + + + | Home Phone [...] | Author | [facility] | | | and Azana | + + + | Organization | [facility] | | | and Azana [...] [place], [place] | | | | | [address] | | + + + + + | Helena Doherty | ECON | [place], | | | | | [place] [address] | | + + + + + Care Team Providers + +------+ + | Care Professional Bass Fisher Name | Role | Phone | + [...] | Degenerative | [address] | [place], [place] | | | | | disc | [place] | [address] Phone: | | | | | disease, | [address] | [phone] | | | | | lumbar | Phone: | Fax: | | | | | Lumbar | [phone] | [phone] | | | | | foraminal | Fax: | | | | | | stenosis | [phone] | | | | | | Fibromyalgia [...] + + | 01/10/ | Office | [facility] | Fay, | Sacroiliitis (HCC) | | 2017 | Visit | [facility] PT | FABIAN Castillo [address] | (Primary Dx); | | | | OP [address] | [facility], | Fibromyalgia | | | | [place] | [place] [address] | | | | | [address] | [phone] | | | | | [phone] | | | | | | | Aiyana Fish S, PT | | | | | | [address] | | | | | | [place] | | | | | | [id number] | | | | | | | [...] THERAPY PT OP [address] [place] [address] Physical Therapy Daily Treatment Note Date: 01/10/2017 [...] | | | | | | [place] [address] | | | | | | [phone] | | | | | | | | | | | | Drafter EngineeringNaomi | | +--------+ + + + + [...]
--- OUTSIDE RECORDS SUMMARY | ~2019-05-17 | XMS | Encounter Summary ---
Demographics + + + | Address | [address] [facility] | | | [place] [address] | + + + | Home Phone [...] | Author | [facility] | | | and Azana | + + + | Organization | [facility] | | | and [...] [place], [place] | | | | | [address] | | + + + + + | Helena Doherty | ECON | [place], | | | | | [place] [address] | | + + + + + Care Team Providers + +------+ + | Care Ct Scan Technician Name | Role | Phone | + +------+ + PCP | Unavailable | + +------+ + Encounter Details +--------+ + + + + | Date | Type | Department | Care Team | Description | +--------+ + + + + | 12/05/ | Hospital | [facility] | Osman Beth | | | 2011 | Encounter | MED CTR XRAY [address] | [address], [address] | | | | | [address] | [place], [place] | | | | | [place] [address] | [address] | | | | | [phone] | | | +--------+ + + + [...] | | | | | [place] [address] | | | | | | [phone] | | | | | | | | | | | | [place], [place] | | +--------+ + + + [...] Performed At | + + + | Located Within [facility] Diagnostic Imaging Department | [facility] | | [address] [facility] | [facility] | | PROCEDURE NOTE EPIDURAL | DIAG [...] Transcribed Date/Time: | | | 12/08/2011 14:05 Administrative Personal Assistant: <Electronically Signed | | | by Osman Beth MD> 12/08/11 1417 | | + + + + + | Procedure Note | + + | Hong, Rad Conversion - 08/01/2013 5:31 PM [facility] | | Diagnostic Imaging Department | | [address] | | | | | | [...] | Transcribed Date/Time: 12/08/2011 14:05 | | Administrative Personal Assistant: | | <Electronically Signed by Osman Beth MD> 12/08/11 1417 | + + + +---------+ + + | Performing | Address | City/State/Zipcode | Phone Number | | Organization | | | | + +---------+ + + | [place] | | | | | [facility] | | | | + +---------+ + + documented in this encounter Visit Diagnoses Not on filedocumented in this encounter"
--- OUTSIDE RECORDS SUMMARY | ~2019-05-17 | XMS | Encounter Summary ---
Demographics + + + | Address | [address] [facility] [facility] | | | [place] [address] | + + + | Home Phone | | + + + | Preferred Language | Unknown | + + + | Marital Status | | + + + | Rastafari Affiliation | 1077 | + + + | Race | Unknown | + + + | Ethnic Group | Unknown | + + + Author + + + | Author | [facility] | | | and Azana | + + + | Organization | [facility] | [...] [place], [place] | | | | | [address] | | + + + + + | Helena Doherty | ECON | [place], | | | | | [place] [address] | | + + + + + Care Team Providers + +------+ + | Care Fws Faculty Assistant Name | Role | Phone | [...] [address] | | | | | [place], | [place], | | | | | [place] [address] | [place] [address] | | | | | [phone] | [phone] | | | | | | | [...] | | | | | [place] [address] | | | | | | [phone] | | | | | | | | | | | | Drive [place], [place] | | +--------+ + + + + documented as of this encounter Visit Diagnoses Not on filedocumented in this encounter"
--- OUTSIDE RECORDS SUMMARY | ~2019-05-17 | XMS | Encounter Summary ---
Demographics + + + | Address | [address] [facility] | | | [place] [address] | + + + | Home Phone [...] Providers + +------+ + | Care Head Start Director Name | Role | Phone | [...] chronic pain | | | | at [facility] 3rd Floor | | management | | | | [address] | | | | | | Amara Chatman [place], | | | | | | [place] [address] | | | | | | [phone] | | | +--------+------+ + + + [...] [facility] | [address] | [place] [address] | | | SERVICES, CORE | [address] | | | + + + + + documented in this encounter Visit Diagnoses + + | Diagnosis | + + | Encounter for chronic pain management | + + documented in this encounter"
--- OUTSIDE RECORDS SUMMARY | ~2019-05-17 | XMS | Encounter Summary ---
Demographics + + + | Address | [address] | | | [place] [address] | + + + | Home Phone [...] + | Author | [facility] | | | and Azana | + + + | Organization | [facility] [...] [place], [place] | | | | | [address] | | + + + + + | Helena Doherty | ECON | [place], | | | | | [place] [address] | | + + + + + Care Team Providers + +------+ + | Care Cio Name | Role | Phone | + [...] | | [address] | [place] [address] | Spondylolisthesis of | | | | [place] | [phone] | cervical region; | | | | [address] | | Foraminal stenosis | | | | [phone] | | of cervical region | +--------+ [...] | | | | | [address] | | | | | | [place] [address] | | | | | | [phone] | | | | | | | | | | | | Motion Picture ActorNaomi | | +--------+ + + + + [...]
--- OUTSIDE RECORDS SUMMARY | ~2019-05-17 | XMS | Encounter Summary ---
Demographics + + + | Address | [address] [facility] | | | [place] [address] | + + + | Home Phone [...] | Author | [facility] | | | and Azana | + + + | Organization | [facility] | [...] [place], [place] | | | | | [address] | | + + + + + | Helena Doherty | ECON | [place], | | | | | [place] [address] | | + + + + + Care Team Providers + +------+ + | Care Machine Chocolate Molder Name | Role | Phone | [...] | | MARCOS [address] | [place] [address] | | | | | [address] | [phone] | | | | | [phone] | | | +--------+ + + + [...] | | | | | [place] [address] | | | | | | [phone] | | | | | | | | | | | | Tear Down ManNaomi | | +--------+ + + + + documented as of this encounter Visit Diagnoses + + | Diagnosis | + + | Spinal stenosis in cervical region - Primary | + + documented in this encounter"
--- OUTSIDE RECORDS SUMMARY | ~2019-05-17 | XMS | Encounter Summary ---
Demographics + + + | Address | [address] [facility] | | | [place] [address] | + + + | Home Phone [...] Author | [facility] | | | and Azana | + + + | Organization | [facility] | | [...] [place], [place] | | | | | [address] | | + + + + + | Helena Doherty | ECON | [place], | | | | | [place] [address] | | + + + + + Care Team Providers + +------+ + | Care Desk Lieutenant Name | Role | Phone | + +------+ + | Nathan Luevano DO | PCP | | + +------+ + Encounter Details +--------+ + + + + | Date | Type | Department | Care Team | Description | +--------+ + + + + | 02/04/ | Orders Only | [facility] | Conversion | | | 2019 | | NEPRHOLOGY CLYDE | Transaction, | | | | | [address] | Provider Unknown | | | | | [address] [place], [place] | [phone] | | | | | [address] | | | | | | [phone] | | | +--------+ + + + [...] | | | | | [place] [address] | | | | | | [phone] | | | | | | | | | | | | Packing InspectorNaomi | | +--------+ + + + [...] | | | LAB | | | SYRIAN | | | | | + +--------+ [...]
--- OUTSIDE RECORDS SUMMARY | ~2019-05-17 | XMS | Encounter Summary ---
Demographics + + + | Address | [address] [facility] | | | [place] [address] | + + + | Home Phone [...] + | Author | [facility] | | | and Azana | + + + | Organization | [facility] [...] [place], [place] | | | | | [address] | | + + + + + | Helena Doherty | ECON | [place], | | | | | [place] [address] | | + + + + + Care Team Providers + +------+ + | Care Mine Engineering Superintendent Name | Role | Phone | [...] [address]VE | | | | | [facility] [address] | [place] [address] | | | | | [place] | [phone] | | | | | [address] | | | | | | [phone] | | | +--------+ + + + [...] | | | | | [place] [address] | | | | | | [phone] | | | | | | | | | | | | Dental SpecialistNaomi | | +--------+ + + + + documented as of this encounter Visit Diagnoses Not on filedocumented in this encounter"
--- OUTSIDE RECORDS SUMMARY | ~2019-05-17 | XMS | Encounter Summary ---
Demographics + + + | Address | [address] [facility] | | | [place] [address] | + + + | Home Phone [...] Team Providers + +------+ + | Care Biomedical Analytical Scientist Name | Role | Phone | + [...] 2013 | Visit | Physicians Francy | [address] | (Primary Dx) | | | | [address] | [address] [place], | | | | | Celina Chatman Mailcode: | [place] [address] | | | | | OP09 Physician's | [phone] | | | | | Francy, [facility] Floor | | | | | | [place], [place] | | | | | | [address] | | | | | | [phone] | | | +--------+---------+ + + + [...] today. documented in this encounter Progress Notes Rosas Lucia MD - 09/02/2013 11:42 AM PDTFormatting of this note might be different from t he original. RHEUMATOLOGY NEW PATIENT CONSULT This consultation was requested by: Tavia Linda, KALA [address] [place] [address] fax: [phone] CC: Chief Complaint Patient presents with Follow-up [...] labs but Dr Shelton, who was her Pulp Mill Supervisor, was not sure if the symptoms were [...] of systems. I s pent 20 minutes [id number] with the patient with over 50% in [...] | + + + + + | [facility] | [address] | [place] [address] | | | SERVICES, CORE | CELINA [...] | | | LABORATORY | | | CUBAN | | | SERVICES, | | | [...] [facility] | [address] | [place] [address] | | | SERVICES, CORE | [address] | | | + + + + + documented in this encounter Visit Diagnoses + + | Diagnosis | + + | Fibromyalgia - Primary Mylagia and myositis, unspecified | + + documented in this encounter"
--- OUTSIDE RECORDS SUMMARY | ~2019-05-17 | XMS | Encounter Summary ---
Demographics + + + | Address | [address] [facility] | | | [place] [address] | + + + | Home Phone [...] Team Providers + +------+ + | Care Proof Technician Name | Role | Phone | [...] Rd | | | | | | [place], [place] | | | | | | [address] | | | +--------+ + + + [...]
--- OUTSIDE RECORDS SUMMARY | ~2019-05-17 | XMS | Encounter Summary ---
Demographics + + + | Address | [address] [facility] | | | [place] [address] | + + + | Home Phone [...] | Author | [facility] | | | and Azana | + + + | Organization | [facility] [...] [place], [place] | | | | | [address] | | + + + + + | Helena Doherty | ECON | [place], | | | | | [place] [address] | | + + + + + Care Team Providers + +------+ + | Care Stripper Latex Name | Role | Phone | + [...] | | disc | [place] | [address] Phone: | | | | | disease, | [address] | [phone] | | | | | lumbar | Phone: | Fax: | | | | | Lumbar | [phone] | [phone] | | | | | foraminal | Fax: | | | | | | stenosis | [phone] | | | | | | Fibromyalgia [...] | | | scoliosis, | Ave | [address] Phone: | | | | | lumbar | [place], | [phone] | | | | | region | [place] | Fax: | | | | | | [address] | [phone] | | | | | | Phone: | | | | | | | [phone] | | | | | | | Fax: | | | | | | | [phone] | | +--------+--------+ + + + + Encounter Details +--------+---------+ + + + | Date | Type | Department | Care Team | Description | +--------+---------+ + + + | 08/30/ | Office | [facility] | Fay, | Lumbar radiculopathy | | 2017 | Visit | PHYSIATRY [address] | [address]ABIAN [address] | (Primary Dx); | | | | [place] [place], | [place], | DEGENERATIVE DISC | | | | [place] [address] | [place] [address] | DISEASE, LUMBAR | | | | [phone] | [phone] | SPINE; Lumbar | | | | [...] of blood sugars if you are diabetic. nursing home risk can lead to osteoporosis which is [...] of the procedure you must provide a driver sales to take you home. For all procedur [...] Bilateral 1996 [facility] Hysterectomy, total abdominal 1972 [place] Appendectomy 1960 [place] Tonsillectomy [address] [place], [place] Colonoscopy 2003 [facility] Bunionectomy 04/10/2007 [facility]; Dr. Db Berrios Perineal skin bridge 02/2009 Electrocardiogram 05/19/2009 Dr. Boss Egd and colonoscopy 07/06/2009 [facility] Dr. Jc Electrocardiogram 08/12/2009 Dr. Radha Stafford; [facility] Endoscopy 07/07/2011 [facility]; Dr. Marquez Finger trigger release Right 05/28/2014 Middle finger; Dr. Donta Agarwal Rotator cuff repair Right 04/20/2015 Dr. Jesus Nasal septum surgery 06/06/2016 Dr. Lindsey; [facility] CURRENT MEDICATIONS: Current Outpatient Prescriptions Medication [...] capsule Take 300 mg by mouth nightly. Ajoxshpjnvk-Dpzlvqtgr-Kee C-Mn (GLUCOSAMINE CHONDR 1500 COMPLX PO) Take [...] deficits with short or care home memory. 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 Unfortunately she cont inues to have significant [...] | | | | | [place] [address] | | | | | | [phone] | | | | | | | | | | | | Quality Control DirectorNaomi | | +--------+ + + + [...] radiculopathy ICD-10 Code M54.16 Ashly Santiago | [facility] | | presents to the fluoroscopy suite for a fluoroscopically-guided [facility] | | L5-S1 transforaminal epidural steroid injection [...] | + + + + + | [facility] | [address] | [place], [place] | [phone] | | [facility] | | [address] | | | - IMAGING | | [...]
--- OUTSIDE RECORDS SUMMARY | ~2019-05-17 | XMS | Encounter Summary ---
Demographics + + + | Address | [address] | | | [place] [address] | + + + | Home Phone | | + + + | Preferred Language | Unknown | + + + | Marital Status | | + + + | Judaism Affiliation | Unknown | + + + [...] Team Providers + +------+ + | Care Business Loan Processor Name | Role | Phone | [...] | | | Amara Chatman Mailcode: | [place], [place] | | | | | [address]09 Physician's | [address] | | | | | [facility]ancy [facility] Floor | [phone] | | | | | [place], [place] | | | | | | [address] | | | | | | [phone] | | | +--------+ + + + [...]
--- OUTSIDE RECORDS SUMMARY | ~2019-05-17 | XMS | Encounter Summary ---
Demographics + + + | Address | [address] | | | [place] [address] | + + + | Home Phone | | + + + | Preferred Language | Unknown | + + + | Marital Status | | + + + | Taoism Affiliation | Unknown | + + + [...] Team Providers + +------+ + | Care Slitter Service And Setter Name | Role | Phone | [...] | | | Amara Chatman Mailcode: | [place], [place] | | | | | [address] Physician's | [address] | | | | | Francy, [place] Floor | [phone] | | | | | [place], [place] | | | | | | [address] | | | | | | [phone] | | | +--------+ + + + [...]
--- OUTSIDE RECORDS SUMMARY | ~2019-05-17 | XMS | Encounter Summary ---
Demographics + + + | Address | [address] [facility] | | | [place] [address] | + + + | Home Phone [...] | Author | [facility] | | | and Azana | + + + | Organization | [facility] | | | and [...] [place], [place] | | | | | [address] | | + + + + + | Helena Doherty | ECON | [place], | | | | | [place] [address] | | + + + + + Care Team Providers + +------+ + | Care Logistics Administrator Name | Role | Phone | [...] | | [address] | [place] [address] | | | | | [place] | [phone] | | | | | [address] | | | | | | [phone] | | | +--------+ + + + [...] | | | | | [place] [address] | | | | | | [phone] | | | | | | | | | | | | Chief Scientist, [facility] | | +--------+ + + + + documented as of this encounter Visit Diagnoses Not on filedocumented in this encounter"
--- OUTSIDE RECORDS SUMMARY | ~2019-05-17 | XMS | Encounter Summary ---
Demographics + + + | Address | [address] [facility] | | | [place] [address] | + + + | Home Phone [...] + | Author | [facility] | | | and Azana | + + + | Organization | [facility] | | | [...] [place], [place] | | | | | [address] | | + + + + + | Helena Doherty | ECON | [place], | | | | | [place] [address] | | + + + + + Care Team Providers + +------+ + | Care Curing Supervisor Name | Role | Phone | [...] | | [address] | [place] [address] | | | | | [place], [place] | [phone] | | | | | [address] | | | | | | [phone] | | | +--------+ + + + [...] | | | | | [place] [address] | | | | | | [phone] | | | | | | | | | | | | Fall Intern, [facility] | | +--------+ + + + + documented as of this encounter Visit Diagnoses Not on filedocumented in this encounter"
--- OUTSIDE RECORDS SUMMARY | ~2019-05-17 | XMS | Encounter Summary ---
Demographics + + + | Address | [address] [facility] | | | [place] [address] | + + + | Home Phone [...] Providers + +------+ + | Care Block Operator Name | Role | Phone | + +------+ + | Bassem Nathan | PCP | | + +------+ + Encounter Details +--------+ + + + + | Date | Type | Department | Care Team | Description | +--------+ + + + + | 04/23/ | Document-Sc | NON-[facility] EPIC | Aristides Longo, | | | 2019 | annjoshua | Department | [facility] | | | | | | Ortho & Ryan | | | | | | [address] | | | | | | [place] [address] | | | | | | [phone] | | | | | | | [...]
--- OUTSIDE RECORDS SUMMARY | ~2019-05-17 | XMS | Encounter Summary ---
Demographics + + + | Address | [address] [facility] [address] | | | [place] [address] | + + + | Home Phone [...] [facility] | | | and Azana | + + + | Organization | [facility] | [...] [place], [place] | | | | | [address] | | + + + + + | Helena Doherty | ECON | [place], | | | | | [place] [address] | | + + + + + Care Team Providers + +------+ + | Care Computer Operations Analyst Name | Role | Phone | [...] + + | 10/31/ | Office | [facility] | Dimitri Lucas | Cervical stenosis of | | 2019 | Visit | NEUROSURGERY [address] | MD Abbi [address] | spine (Primary Dx) | | | | [address] | [address] [place] | | | | | [place] | [place] [address] | | | | | [address] | [phone] | | | | | [phone] | | | +--------+---------+ + + + [...] encounter Patient Instructions Patient Instructions Dominga Sims, Optical Technician - 10/31/2018 2:30 PM PDTIt was a [...] optima l pain management. Surgical Pain Handout: https://www.polly.[place].gov/Portals/1/Documents/9220/431817-AygibclWdfbjmeojddb-LsjhvtfuDwfv.pdf Persistent Pain Toolkit for Patients and Families: Includes education on pain in general (multiple languages) and education on pain after inju ry or surgery. Relaxation videos practice techniques to quiet pain. https://[place].org/our-services/p/imeqqlaiqa-iyveefbqjj-ggaz/lrwhfvazzo-xxox-pdy lkit/hzekzmr-ohi-rarsoeai-toolkit/juuybl-wwpv-ptxvhrfql/ T documented in this encounter Progress Notes Dimitri Lucas MD - 10/31/2018 2:30 PM PDT Dimitri Lcuas MD [address] [facility] [address] [place] [address] PHONE: FAX: NEUROSURGERY HISTORY AND PHYSICAL EXAMINATION [...] History: Procedure Laterality Date APPENDECTOMY 1960 Exploratory; [place] BLADDER SUSPENSION 2005 with Rectocele repair; Dr. Maranda Watkins BUNIONECTOMY 04/10/2007 Darlene's Bunion; Dr. Db Berrios CATARACT REMOVAL Bilateral 1996 [facility] CHOLECYSTECTOMY, LAPAROSCOPIC 07/11/2011 Dr. Marquez COLONOSCOPY 2003 [facility] COLONOSCOPY N/A 05/23/2017 Procedure: COLONOSCOPY; Surgeon: Joshua Hilliard MD; Location: [facility] MEDICAL PROCEDURE UNIT EGD AND COLONOSCOPY 07/06/[address] [facility] [address] Jc EGD AND COLONOSCOPY 2009 ELECTROCARDIOGRAM 05/19/2009 Dr. Boss ELECTROCARDIOGRAM 08/12/2009 Dr. Radha Stafford; [facility] ENDOSCOPY 07/07/2011 [facility]; Dr. Marquez FINGER TRIGGER RELEASE Right 05/28/2014 Middle finger; Dr. Donta Agarwal FINGER TRIGGER RELEASE FOOT NEUROMA SURGERY Left 1998 HEEL SPUR SURGERY Right 1997 Dr. Berrios HYSTERECTOMY, TOTAL ABDOMINAL 1972 [place] LUMBAR SPINE SURGERY Anterior 02/14/2017 Procedure: L4-5 Lateral Anterior Interbody Fusion, L5-S1 Transforaminal Lumbar Interbody F usion; Surgeon: Agusto Pereira MD; Location: [facility] MAIN OR NASAL SEPTUM SURGERY 06/06/2016 Dr. Lindsey; [facility] PERINEAL SKIN BRIDGE 02/[address] Reid RECTOCELE REPAIR 2006 with bladder suspension; Dr. Reid and Dr. Watkins RETINAL DETACHMENT SURGERY 1997 Dr. Andrade ROTATOR CUFF REPAIR Right 04/20/2015 Ruptured and Tendon repair Dr. [facility] TONSILLECTOMY [address] [place], [place] CURRENT MEDICATIONS: Current Outpatient Medications Medication Sig [...] has no apparent deficits with short or fpc memory. CRANIAL NERVES: II: Acuity is intact. [...] Wrist Extension 5 5 Interossei 5 5 Hat Block Maker Strength 5 5 Hip Flexion 5 5 [...] doc umentation, as scribed by Dominga Mckeon, Optical Technician, in my presence, and it i s [...] CORAL | | | | | | [facility] | | | | | | [place] [address] | | | | | | [phone] | | | | | | | | | | | | Giant Tire RepairerNaomi | | +--------+ + + + + documented as of this encounter Visit Diagnoses + + | Diagnosis | + + | Cervical stenosis of spine - Primary Spinal stenosis in cervical region | + + documented in this encounter
--- OUTSIDE RECORDS SUMMARY | ~2019-05-17 | XMS | Encounter Summary ---
Demographics + + + | Address | [address] [facility] | | | [place] [address] | + + + | Home Phone [...] | Author | [facility] | | | and Azana | + + + | Organization | [facility] [...] [place], [place] | | | | | [address] | | + + + + + | Helena Doherty | ECON | [place], | | | | | [place] [address] | | + + + + + Care Team Providers + +------+ + | Care Medicine Aide Name | Role | Phone | + +------+ + PCP | Unavailable | + +------+ + Encounter Details +--------+ + + + + | Date | Type | Department | Care Team | Description | +--------+ + + + + | 08/27/ | Hospital | [facility] | Shahzad Andrade, | Unspecified retinal | | 1998 - | Encounter | [facility] [address] | [address] | detachment | | | | [address] | [place], [place] | | | 08/28/ | | [place], [place] | [address] | | | 1998 | | [address] | | | | | | [phone] | | | +--------+ + + + [...] | | | | | [place] [address] | | | | | | [phone] | | | | | | | | | | | | Well Logging CaptainNaomi | | +--------+ + + + + documented as of this encounter Visit Diagnoses + + | Diagnosis | + + | Unspecified retinal detachment | + + documented in this encounter"
--- OUTSIDE RECORDS SUMMARY | ~2019-05-17 | XMS | Encounter Summary ---
Demographics + + + | Address | [address] [facility] | | | [place] [address] | + + + | Home Phone [...] Team Providers + +------+ + | Care Pharmacist Critical Care Name | Role | Phone | [...] 2012 | Encounter | Physicians Francy Donato, COLLATERAL CLERK [address] | | | | | [address] | [address] | | | | | Amara Chatman Mailcode: | [place], [place] | | | | | [address] Physician's | [address] | | | | | Francy, [facility] Floor | [phone] | | | | | [place], [place] | | | | | | [address] | | | | | | [phone] | | | +--------+ + + + [...]
--- OUTSIDE RECORDS SUMMARY | ~2019-05-17 | XMS | Encounter Summary ---
Demographics + + + | Address | [address] [facility] | | | [place] [address] | + + + | Home Phone [...] + | Author | [facility] | | | and Azana | + + + | Organization | [facility] | | | and [...] [place], [place] | | | | | [address] | | + + + + + | Helena Doherty | ECON | [place], | | | | | [place] [address] | | + + + + + Care Team Providers + +------+ + | Care Produce Production Team Member Name | Role | Phone | + +------+ + | Nathan Luevano DO | PCP | | + +------+ + Encounter Details +--------+ + + + + | Date | Type | Department | Care Team | Description | +--------+ + + + + | 11/15/ | Hospital | [facility] | Onesimo Oliveira | S/P lumbar fusion | | 2018 | Encounter | MED CTR XRAY [address] | FABIAN [address] | | | | | [place] | [address] | | | | | [place] [address] | [place] | | | | | [phone] | [address] | | | | | | | [...] | | | | | | [place] [address] | | | | | | [phone] | | | | | | | | | | | | Travel Registered Nurse IcuNaomi | | +--------+ + + + + [...]
--- OUTSIDE RECORDS SUMMARY | ~2019-05-17 | XMS | Encounter Summary ---
Demographics + + + | Address | [address] [facility] | | | [place] [address] | + + + | Home Phone [...] + | Author | [facility] | | | and Azana | + + + | Organization | [facility] | | | and [...] [place], [place] | | | | | [address] | | + + + + + | Helena Doherty | ECON | [place], | | | | | [place] [address] | | + + + + + Care Team Providers + +------+ + | Care Supervisor Tree Trimming Name | Role | Phone | + [...] + + | 11/13/ | Office | [facility] | Osman Beth | Facet arthritis of | | 2012 | Visit | PHYSIATRY [address] | T, [address] | lumbar region | | | | [place], | [address] [place] | (Primary Dx); | | | | [place] [address] | [address] | DEGENERATIVE DISC | | | | [phone] | | DISEASE, LUMBAR | | | | | | SPINE; Sacroiliitis | | | | | | ([facility]); Fibromyalgia; | | | | [...] our off ice. Please also provide a airport driver to take you home on the [...] [place] | | | | | | [place] [address] | | | | | | [phone] | | | | | | | | | | | | Core Oven Tender, [facility] | | +--------+ + + + [...]
--- OUTSIDE RECORDS SUMMARY | ~2019-05-17 | XMS | Encounter Summary ---
Demographics + + + | Address | [address] [facility] | | | [place] [address] | + + + | Home Phone [...] Author | [facility] | | | and Azana | + + + | Organization | [facility] | | [...] [place], [place] | | | | | [address] | | + + + + + | Helena Doherty | ECON | [place], | | | | | [place] [address] | | + + + + + Care Team Providers + +------+ + | Care Line Up Machine Operator Name | Role | Phone [...] | Degenerative | [address] | [place], [place] | | | | | disc | [place] | [address] Phone: | | | | | disease, | [address] | [phone] | | | | | lumbar | Phone: | Fax: | | | | | Lumbar | [phone] | [phone] | | | | | foraminal | Fax: | | | | | | stenosis | [phone] | | | | | | Fibromyalgia [...] + + | 11/08/ | Office | [facility] | Fay, | Sacroiliitis (HCC) | | 2017 | Visit | MED CTR THERAPY PT | FABIAN Castillo [address] | (Primary Dx); | | | | OP [address] | [facility], | Fibromyalgia | | | | [place] | [place] [address] | | | | | [address] | [phone] | | | | | [phone] | | | | | | | Aiyana Fish S, PT | | | | | | [address] | | | | | | [place] | | | | | | [phone] | | | | | | | [...] might be different fro m the original. [facility] CTR THERAPY PT OP [address] [place] [address] Physical Therapy Daily Treatment Note Date: 11/08/2016 Patient Information Patient Name: Ashly Santiago Date of : 1940 Age: 76 y.o. Encounter Diagnoses Code Name Primary? M46.1 Sacroiliitis (HCC) Yes M79.7 Fibromyalgia Date of Onset: 06/08/2016 Referring Provider: Anna Aponte PA-C Rehab Precautions Office Visit from 10/19/2016 in [facility] CTR THERAPY PT OP Rehab Precautions Precautions None Rehab Learning Style Office Visit from 10/19/2016 in [facility] CTR THERAPY PT OP Learning [...] 2018 | Encounter | | [address] [facility] | | | | | | [address] [facility] | | | | | | [place] [address] | | | | | | [phone] | | | | | | | | | | | | Stud Dairy Cattle FarmerNaomi | | +--------+ + + + + documented as of this encounter Visit Diagnoses + + | Diagnosis | + + | Sacroiliitis (HCC) - Primary Sacroiliitis, not elsewhere classified | + + | Fibromyalgia Mylagia and myositis, unspecified | + + documented in this encounter"
--- OUTSIDE RECORDS SUMMARY | ~2019-05-17 | XMS | Encounter Summary ---
Demographics + + + | Address | [address] [facility] | | | [place] [address] | + + + | Home Phone [...] Author | [facility] | | | and Azana | + + + | Organization | [facility] [...] [place], [place] | | | | | [address] | | + + + + + | Helena Doherty | ECON | [place], | | | | | [place] [address] | | + + + + + Care Team Providers + +------+ + | Care Brim Curler Name | Role | Phone | + [...] [address] | | | | | | [place] | | | | | | [address] | | | | | | [phone] | | | +--------+ + + + [...] | | | | | [place] [address] | | | | | | [phone] | | | | | | | | | | | | Record Center SpecialistNaomi | | +--------+ + + + + documented as of this encounter Visit Diagnoses Not on filedocumented in this encounter"
--- OUTSIDE RECORDS SUMMARY | ~2019-05-17 | XMS | Encounter Summary ---
Demographics + + + | Address | [address] [facility] | | | [place] [address] | + + + | Home Phone [...] | Author | [facility] | | | and Azana | + + + | Organization | [facility] | | | and [...] [place], [place] | | | | | [address] | | + + + + + | Helena Doherty | ECON | [place], | | | | | [place] [address] | | + + + + + Care Team Providers + +------+ + | Care Rat Trapper Name | Role | Phone | + [...] | | | | | | [place] | [place] [address] | | | | | | [address] | Phone: | | | | | | Phone: | [phone] | | | | | | [phone] | Fax: | | | | | | Fax: | [phone] | | | | | | [phone] | | +--------+--------+ + + + + Encounter Details +--------+---------+ + + + | Date | Type | Department | Care Team | Description | +--------+---------+ + + + | 10/05/ | Office | [facility] | Brendan Soriano MD | Other diseases of | | 2014 | Visit | OTOLARYNGOLOGY [address] | [address] [place] | nasal cavity and | | | | [address] | [address] [place], | sinuses(478.19) | | | | [place], [place] | [place] [address] | (Primary Dx) | | | | [address] | [phone] | | | | | [phone] | | | +--------+---------+ + + + [...] MD - 10/05/2014 4:19 PM PDT [facility] OTOLARYNGOLOGY [address] [place] [address] OFFICE NOTE BRENDAN SORIANO MD Patient: ASHLY ZAVALETA Admitting: MR #: [id number] LOC: PT TYPE: Adm Date: 10/05/2014 : [...] Transcribed on 10/06/2014 03:32:09 by svetlana job# [id number] Confirmation #: [id number] cc: THEE BOSS MD a [facility], Brendan Parekh MD - 10/05/2014 4:15 PM PDTSee dictation # [id number] signed by Brendan Soriano MD at 10/05/2014 4:20 PM PDTdocumented in is encounter Plan of Treatment +--------+ + + + + | Date | Type | Specialty | Care Team | Description | +--------+ + + + + | 05/19/ | Hospital | Radiology | Dennys Pineda PA-C | | | 2019 | Encounter | | [address] [facility] | | | | | | [address] [facility] | | | | | | [place] [address] | | | | | | [phone] | | | | | | | | | | | | Cardboard Inserter, [facility] | | +--------+ + + + + documented as of this encounter Visit Diagnoses + + | Diagnosis | + + | Other diseases of nasal cavity and sinuses(478.19) - Primary Other diseases of nasal | | cavity and sinuses | + + documented in this encounter
--- OUTSIDE RECORDS SUMMARY | ~2019-05-17 | XMS | Encounter Summary ---
Demographics + + + | Address | [address] [facility] | | | [place] [address] | + + + | Home Phone [...] | Author | [facility] | | | and Azana | + + + | Organization | [facility] | | [...] [place], [place] | | | | | [address] | | + + + + + | Helena Doherty | ECON | [place], | | | | | [place] [address] | | + + + + + Care Team Providers + +------+ + | Care Union Carpenter Name | Role | Phone | + [...] [address] | | | | | | [place] | | | | | | [address] | | | | | | [phone] | | | +--------+ + + + [...] | | | | | [place] [address] | | | | | | [phone] | | | | | | | | | | | | Tailing Hand, [facility] | | +--------+ + + + + documented as of this encounter Visit Diagnoses Not on filedocumented in this encounter"
--- OUTSIDE RECORDS SUMMARY | ~2019-05-17 | XMS | Encounter Summary ---
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 Call your doctor for [facility] advice about side effects. You may report side effects to FDA at [phone]-PHQ-[phone]. What other drugs will affect this drug? [...] all medications you use. This includes prescription, hesd-tek-fpmspkm, vitamin, and h erbal products. Do not [...] to ensure that the information provided by [employer]. ( 'Multum') is accurate, up-to-date, and complete, but no guarantee is made to that effect. Dr roy information contained herein may be time sensitive. [employer] information has been compiled for use by healthcare practitioners and consumers in the [place] and therefore [employer] does not warrant that uses outside of the [place] are appropriate, unless specifically indicated otherwise. [employer] drug information does not endorse drugs, diagnose patients or recommend therapy. [employer] drug information is an informational resource designed [...] effective or appropriate for any given patient. [employer] does not assume any respon sibility for any aspect of healthcare administered with the aid of information Multum provid es. The information contained herein is not intended to cover all possible uses, directions, precautions, warnings, drug interactions, allergic reactions, or adverse effects. If you quach ve questions about the drugs you are taking, check with your doctor, nurse or pharmacist. Copyright 8704-3045 [employer]ociety. Version: 2.02. Revision date: 09/07/2011. This information does not replace the advice of a doctor. Tactilize, [employer] disclaim s any warranty or liability for your use of this information. Content Version: 9.9.334760 Using Your Medicines: After Your Visit Your [...] each medicine. Includ e all prescription and loqh-uzc-shlvkab medicines, vitamins, and supplements. Keep this list [...] plan your refills so that you can pick up man all your medicines at t he same time. This can mean fewer trips to the drugstore. Be safe Talk with your pharmacist or doctor before you take a new prescription, hjlo-hid-tptedcc medicine, or supplement. Ask about side effects [...] Medicines: After Your Visit", log into your Ubiquigent account at [email or web address]/[employer]. You can enter [id number] in the AudioTrip" search box. Not on Ubiquigent? Review the Intelligizehart section of your After Visit Summary for directions on ho w to sign up. [phone] Wikibon. Care instructions adapted under license by [facility] & [facility]. This care instruction is for use with your licensed healthcar e professional. If you have questions about a medical condition or this instruction, always ask your healthcare professional. [employer]on disclaims any warranty or liabili ty for your use of this information. Content Version: 9.9.138262; Last Revised: September 17, 2012 Safe Use [...] doctor if you can take an o zpm-ikp-iuakptm medicine. When should you call for help? [...] Medicine: After Your Visit", log into your Blogic account at [email or web address]/[email or web address] (formerly [employer])hart. You can enter R108 in the Jumbas Library" se arch box. Not on MyChart? Review the MyChart section of your After Visit Summary for directions on oracio morton to sign up. [phone] [employer]on. Care instructions adapted under license by [facility] & [facility]. This care instruction is for use with your licensed healthcar e professional. If you have questions about a medical condition or this instruction, always ask your healthcare professional. [employer]on disclaims any warranty or liabili ty for your use of this information. Content Version: 9.9.957693; Last Revised: April 16, 2012 Learning About [...] contain them include: Codeine (Tylenol 3). Hydrocodone ([place], Vicodin). Oxycodone (OxyContin, Percocet). Safety tips Taking [...] use any other medicines. This includes o oiq-tjq-ruubvpk medicines. Make sure your doctor knows all [...] the other medicines you take. This includes mvbm-xar-lctffbn drugs. Many medicines have acetaminophen. Do not [...] about "Learning About Opiates", log into your Ubiquigent account at [email or web address]/FOUNDDt. You can enter [id number] in the Jumbas Library" search box. Not on MyChart? Review the MyChart section of your After Visit Summary for directions on oracio morton to sign up. [phone] Wikibon. Care instructions adapted under license by [facility] & [facility]. This care instruction is for use with your licensed healthcar e professional. If you have questions about a medical condition or this instruction, always ask your healthcare professional. Wikibon disclaims any warranty or liabili ty for your use of this information. Content Version: 9.9.484010; Last Revised: October 29, 2012 Tennis Elbow: [...] about "Tennis Elbow: Exercises", log into your Ubiquigent account at [email or web address]://[email or web address]. [email or web address]/[employer]. You can enter U616 in the Jumbas Library" search box. Not on Ubiquigent? Review the Ubiquigent section of your After Visit Summary for directions on ho w to sign up. [phone] Wikibon. Care instructions adapted under license by [facility] & [employer]. This care instruction is for use with your licensed healthcar e professional. If you have questions about a medical condition or this instruction, always ask your healthcare professional. Wikibon disclaims any warranty or liabili ty for your use of this information. Content Version: 9.9.389094; Last Revised: April 28, 2011 Golfer's Elbow: [...] about "Golfer's Elbow: Exercises", log into your Ubiquigent account at [email or web address] [email or web address]/[employer]. You can enter [id number] in the AudioTrip" search box. Not on Outfitteryt? Review the Intelligizehart section of your After Visit Summary for directions on oracio morton to sign up. [phone] T[employer]ilize[employer]. Care instructions adapted under license by [facility]; [facility]. This care instruction is for use with your licensed healthcar e professional. If you have questions about a medical condition or this instruction, always ask your healthcare professional. Tactilize, indoo.rs disclaims any warranty or liabili ty for your use of this information. Content Version: 9.9.461229; Last Revised: July 06, 2011 documented in [...] and provided counseling and education. Functional Assessment: [facility] FLOWSHEET 05/06/2013 07/09/2013 09/01/2013 RAPID 3 6.9 [...] Ms. Santiago has appointment tomorrow to see sdc teacher Dr. Rosas Lucia. 5. 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 Discuss this with Dr. Lucia and possibly follow-up with orthopedics locally in [place]. 6. Ms. Santiago will have to travel to [place] from [place] every 3 months for reevaluatio n if [...] at 3 months. [facility] [address] [place] [address] Mailcode: Op09 [facility] [address] [facility] [address] documented in th is encounter Plan of [...] | + + + + + | [facility] | [address] | [place] [address] | | | SERVICES, CORE | CELINA [...]
[~2019-05-17 22:18] MED LIST: ARTHROTEC 50 M1 EACH PO; ATENOLOL25 MG PO; BUSPIRONE HCL7.5 MG PO; DICLOFENAC SODI50 MG PO; HYDROCHLOROTH12.5 MG PO; HYDROMORPHONE HC2 MG PO; HYDROXYCHLOROQ200 MG PO; HYDROXYZINE PAM50 MG PO; LOSARTAN POTASS50 MG PO; METHOTREXATE2.5 MG PO; TRAMADOL HCL50 MG PO; VESICARE10 MG PO
--- NOTE | 2019-05-18 07:01 | EKG ---
[facility] [address] [facility] [place], [place] [address] Signed Normal sinus rhythm Prolonged QT Abnormal ECG When compared with ECG of 06-JUN-2016 07:45, No significant change was found Confirmed by ROSELIA SANDY MD ([id number]) on 05/18/2019 7:01:01 AM Electronically Signed By: ROSELIA SANDY MD 05/18/19 0701 PATIENT NAME: MEGHANNNANCYKinga MCMILLAN Electrocardiogram DATE OF : 40 PHYSICIAN: ROSELIA SANDY MD REPORT #: [id number] REPORT IS CONFIDENTIAL AND NOT TO BE RELEASED WITHOUT AUTHORIZATION
== END 2019-05-18 00:42 | disposition home or self-care (01) ==
LOC: ED 22:18
DX: R07.89 Other chest pain (principal); R91.1 Solitary pulmonary nodule; D64.9 Anemia, unspecified; F32.9 Major depressive disorder, single episode, unspecified; Z88.8 Allergy status to other drugs, medicaments and biological substances; Z91.048 Other nonmedicinal substance allergy status; Z88.5 Allergy status to narcotic agent; Z79.899 Other long term (current) drug therapy
CPT/HCPCS: 71045; 71260; 80053; 83735; 84484; 85025; 85379; 93005; 93010; 99285-25; Q9967

== ENCOUNTER 2019-09-07 14:16 | Emergency (ER) | payer MEDICARE ==
[~2019-09-07] VITALS: Ht 167.6 cm; Wt 88.5 kg
[2019-09-07] MEDS ORDERED: ONDANSETRON ODT8 MG PO (18:32)
--- NOTE | 2019-09-08 16:57 | EKG ---
[facility] [address] [facility] [place] [address] Signed Normal sinus rhythm Prolonged QT Abnormal ECG When compared with ECG of 17-MAY-2019 22:24, No significant change was found Confirmed by VLADIMIR SINGLETARY MD ([id number]) on 09/08/2019 4:57:04 PM Electronically Signed By: VLADIMIR SINGLETARY MD 09/08/19 1657 PATIENT NAME: ZAVALETANANCY Electrocardiogram DATE OF : 40 PHYSICIAN: VLADIMIR SINGLETARY MD REPORT #: [id number] REPORT IS CONFIDENTIAL AND NOT TO BE RELEASED WITHOUT AUTHORIZATION
== END 2019-09-07 18:40 | disposition home or self-care (01) ==
LOC: ED 14:16
DX: R55 Syncope and collapse (principal); E86.0 Dehydration; D64.9 Anemia, unspecified; F32.9 Major depressive disorder, single episode, unspecified; Z88.8 Allergy status to other drugs, medicaments and biological substances; Z91.048 Other nonmedicinal substance allergy status; Z88.5 Allergy status to narcotic agent; Z79.899 Other long term (current) drug therapy
CPT/HCPCS: 80053; 81001; 84484; 85025; 93005; 93010; 96361; 96374; 99284-25; J2405; J7040

== ENCOUNTER 2023-12-19 13:30 | Inpatient (IN) | payer OTHER ==
[~2023-12-19] VITALS: Ht 167.6 cm; Wt 80.5 kg
--- NOTE | ~2023-12-19 | DS ---
[facility] [address] [place], [place] [address] Draft ADMISSION DATE: 12/19/2023 DISCHARGE DATE: 12/23/2023 REASON FOR ADMISSION: Cecal volvulus. HISTORY: This 83-year-old white woman, has had five days of progressive abdominal pain and abdominal distention. She describes her pain is rather severe. She has had nausea and vomiting but no bowel movement for the past five days. She saw her primary provider, Dr. 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 Her symptoms worsened. She presented to the emergency room where she was evaluated by Dr. Jones. This included clinical examination showing marked abdominal distention, tender abdomen mostly on the left side and a CT scan of the abdomen consistent with cecal volvulus. Her white count was noted to be 10.0, hematocrit 33.9, platelets 263,000. Creatinine 1.07. She was admitted for further evaluation and care. Her underlying other medical issues include rheumatoid arthritis, hyperactive bladder, fibromyalgia, macular degeneration, anemia, and presumed gastroparesis. PHYSICAL EXAMINATION: GENERAL: This is a pleasant elderly woman who appeared to be in mild discomfort at time of my evaluation. VITAL SIGNS: Pulse was 72, blood pressure 178/80, temperature 98.3, oxygen saturation was 97%. NECK: Trachea is midline. CHEST: Clear. Mucous membranes are slightly dry. HEART: Regular. ABDOMEN: Markedly distended. There was a low midline incision which was well healed without sign of hernia. Some tenderness throughout the abdomen, stone in the left. EXTREMITIES: She showed no sign of clubbing, cyanosis, or edema of the extremities. HOSPITAL COURSE: The patient was fluid resuscitated and taken to operation within about 2 hours of my evaluation and efforts at resuscitation. The operation did certainly show a large cecal volvulus. The torsion of the colon through a midline laparotomy incision was undertaken. Although the colon was not infarcted, it was certainly somewhat ischemic. 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 PATIENT NAME: NANCY ZAVALETA DISCHARGE SUMMARY DATE OF : 40 REPORT #: [id number] PHYSICIAN: GARY MCGARRY MD PCP: NATHAN PERAZA DO REPORT IS CONFIDENTIAL AND NOT TO BE RELEASED WITHOUT AUTHORIZATION [facility] [address] [place], [place] [address] Draft Her postoperative course was quite unremarkable. She was taken to the intensive care unit postoperatively given her underlying comorbidities and advanced age. She was soon begun on a clear liquid diet and had bowel movement within 24 hours. Progressive improvement was noted. Her diet was advanced and she was ultimately able to be discharged to home in good condition. DISCHARGE MEDICATIONS: 1. Ibuprofen 600 mg p.o. q.6 hours as needed for pain #30, refill one. 2. Tylenol 1 g p.o. q.6 hours as needed for pain #30, refill two. She will continue with her usual medications including hydroxychloroquine 200 mg p.o. daily, methotrexate 2.5 mg tablets 15 mg p.o. q.week on Sundays. 3. Famotidine 20 mg p.o. b.i.d. 4. Myrbetriq 50 mg extended release at bedtime daily. 5. Trospium chloride 20 mg p.o. b.i.d. 6. Duloxetine (Cymbalta) 20 mg p.o. daily. 7. Lasix 20 mg p.o. daily. 8. Valsartan, Diovan 160 mg p.o. daily. 9. Amoxicillin 500 mg four tablets p.o. prior to dental appointments as needed. 10. Carvedilol 25 mg p.o. b.i.d. 11. Potassium chloride 10 mEq p.o. daily with food. 12. Tylenol with diphenhydramine 500/25 one p.o. daily at bedtime as needed for sleep. 13. Docusate 100 mg p.o. b.i.d. as needed for constipation. 14. Estroven strength caplet 400 mg p.o. daily. 15. Folic acid 0.4 mg p.o. daily. 16. Lysine 500 mg p.o. daily. 17. Vitamin C, E and lutein 250 mg capsule one p.o. daily b.i.d. 18. Lactobacillus probiotic 10 billion cell capsule one p.o. daily. 19. Tylenol Extra Strength as needed. 20. Vitamin B12 5000 mcg capsule p.o. daily. 21. Vitamin D 325 mcg, 1000 units p.o. daily. 22. Miconazole powder as needed at bedtime. FOLLOW UP: She will call on Sunday to set up an appointment with me in 4-6 weeks. DISCHARGE INSTRUCTIONS: She is to lift no more than 20 pounds for the next four weeks. She should walk on a daily basis and ambulate frequently. She is permitted to shower and allow water to contact Steri-Strips. The Steri-Strips will come up on their own in due course. DISCHARGE DIAGNOSES: PATIENT NAME: GEOVANNI ZAVALETAKinga RODRIGUEZGH DISCHARGE SUMMARY DATE OF : 40 REPORT #: [id number] PHYSICIAN: GARY MCGARRY MD PCP: NATHAN PERAZA DO REPORT IS CONFIDENTIAL AND NOT TO BE RELEASED WITHOUT AUTHORIZATION [facility] [address] [place] [address] Draft 1. Advanced cecal volvulus, status post fluid resuscitation and right hemicolectomy with uvdt-pw-cauj functional end-to-end ileotransverse colostomy. 2. History of gastroparesis (diagnosis Dr. Vines). 3. Rheumatoid arthritis. 4. Overactive bladder. MD TOYIN Beltran/THERESAL /[id number] cc: MD Nathan Montenegro DO Copies: LIMA JONES MD, ARIAN DO ~ PATIENT NAME: NANCY ZAVALETA DISCHARGE SUMMARY DATE OF : 40 REPORT #: [id number] PHYSICIAN: GARY MCGARRY MD PCP: NATHAN PERAZA DO REPORT IS CONFIDENTIAL AND NOT TO BE RELEASED WITHOUT AUTHORIZATION
[~2023-12-19 13:30] MED LIST changes: +AMITRIPTYLINE H25 MG PO; +FAMOTIDINE20 MG PO; +MYRBETRIQ50 MG PO; +ONDANSETRON ODT8 MG PO; +TROSPIUM CHLORI20 MG PO
--- OUTSIDE RECORDS SUMMARY | 2023-12-19 13:32 | XMS ---
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 EZiyad VISIT COUNT (12 MO.) 1 CHARLES Hansen TOTAL 1 NOTE: Visits indicate total known visits. ED/UCC VISIT TRACKING (12 MO.) 12/19/2023 13:31 CHARLES Gomez [place] TYPE: Emergency COMPLAINT: - ABDOMINAL PAIN INPATIENT VISIT TRACKING (12 MO.) No inpatient visits to display in this time frame [email or web address]
[2023-12-19] MEDS ORDERED: FUROSEMIDE20 MG PO (14:49)
[2023-12-19] MEDS ORDERED: K-TAB ER20 MEQ PO (14:49)
[2023-12-19] MEDS ORDERED: CYMBALTA20 MG PO (14:49)
[2023-12-19] MEDS ORDERED: DIOVAN160 MG PO (14:50)
[2023-12-19 15:15] LABS: PLATELET COUNT 263 K/uL (140-440); RBC 3.33 M/ul (4.3-5.7)
[2023-12-19 15:19] LABS: BASOPHILS 0.4 % (0-2); EOSINOPHILS 0.6 % (0-6); HEMATOCRIT 33.9 % (35.0-50.0); HEMOGLOBIN 11.2 g/dL (12.0-18.0); MCH 33.6 (27-36); MCV 101.8 fl (81-99); MONOCYTES 10.6 % (0-12); NEUTROPHILS 78.4 % (39-80); RDW 14.1 (10.5-15.0)
[2023-12-19 15:23] LABS: ALBUMIN 3.2 g/dL (3.4-5.0); ALBUMIN/GLOBULIN RATIO 0.97 (1.1-2.4); ANION GAP 13.4 (7-21); BILIRUBIN, TOTAL 0.6 ng/dL (0.2-1.0); BUN/CREATININE RATIO 11.21 (6.0-28.6); CALCIUM 8.6 mg/dL (8.5-10.1); CREATININE, SERUM 1.07 mg/dL (0.55-1.02); POTASSIUM 3.4 mmol/L (3.5-5.1); PROTEIN, TOTAL 6.5 g/dL (6.4-8.2)
[2023-12-19] MEDS ORDERED: HYDROmorphone HCL 1 MG/ML SYR IV PRN ×2 (15:30→22:15)
[2023-12-19] MEDS ORDERED: SODIUM CHLORIDE 0.9% 1,000 ML IV ONE (15:30)
[2023-12-19] MEDS ORDERED: PROCHLORPERAZINE EDISYLATE 10 MG/2 ML VIAL IV ONE (15:30)
[2023-12-19] MEDS ORDERED: FAMOTIDINE 20 MG/ 2 ML VIAL IV ONE (16:30)
[2023-12-19] MEDS ORDERED: PIPERACILLIN/TAZOBACTAM 3.375 GM in DEXTROSE 5% 100 ML IV ONE (16:45)
[2023-12-19] MEDS ORDERED: DEXTROSE 5% 100 ML IV ONE (16:47)
[2023-12-19] MEDS ORDERED: LACTATED RINGER'S 1,000 ML IV ONE (17:15)
[2023-12-19] MEDS ORDERED: LACTATED RINGER'S 1,000 ML IV SCH ×3 (17:15→22:15)
[2023-12-19] MEDS ORDERED: MORPHINE SULFATE 10 MG/ML VIAL IV PRN ×2 (17:15→22:15)
[2023-12-19 17:59] VITALS: BP 158/63
--- NOTE | 2023-12-19 18:30 | NUR ---
Patient arrives to CCU via stretcher, full assist in moving to unit bed d/t pain. Patient A+O, states pain 6/10 and tolerable at this time. On RA. ABD distended, firm and tender to palpate. Patient NPO, provided oral swab for patient comfort. Purewick in place. 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 CMS intact. Patient weak d/t pain but normally manages all own ADLs and transfers. Significant fibromyalgia and patient expresses concern over frequent BP's and SCDs, encouraged to inform nurses with any discomfort. Patient Bill at bedside and assists with HX/admission questions. NS bolus complete, IV ABX from ER complete, LR bolus infusing. Chart prepared for surgery, consent signed, SCDs in place. Patient and family updated on upcoming procedure, all questions answered. Oriented to room/unit and call light.
[2023-12-19] MEDS ORDERED: fentaNYL citrate 100 MCG/2 ML VIAL ONE (18:47)
[2023-12-19] MEDS ORDERED: KETAMINE in NS 50 MG/5 ML SYR ONE (18:47)
[2023-12-19] MEDS ORDERED: ROCURONIUM BROMIDE 50 MG/5 ML SYR ONE (19:02)
[2023-12-19] MEDS ORDERED: SUCCINYLCHOLINE IN 0.9% NACL 200 MG/10 ML SYRINGE ONE (19:02)
[2023-12-19] MEDS ORDERED: DEXAMETHASONE SOD PHOS 4 MG/ML VIAL ONE ×2 (19:02→21:03)
[2023-12-19] MEDS ORDERED: ondansetron HCL 4 MG/2 ML VIAL ONE (19:02)
[2023-12-19] MEDS ORDERED: LIDOCAINE HCL 2% 5 ML SDV ONE ×3 (19:02→20:55)
[2023-12-19] MEDS ORDERED: propofoL 200 MG/20 ML VIAL ONE (19:02)
[2023-12-19] MEDS ORDERED: dexmedeTOMIDine HCl 200 MCG/2 ML VIAL ONE (19:08)
--- NOTE | 2023-12-19 19:22 | NUR ---
REPORT RECEIVED AND CARE ASSUMED FROM ILIR HOPE. PT OFF FLOOR IN SURGERY.
[2023-12-19] MEDS ORDERED: ACETAMINOPHEN 1,000 MG/100 ML VIAL ONE (19:26)
[2023-12-19] MEDS ORDERED: SODIUM CHLORIDE 0.9% 40 ML IV ONE ×2 (19:26→20:55)
[2023-12-19] MEDS ORDERED: MAGNESIUM SULFATE 1 GM/2 ML VIAL ONE ×2 (19:27→20:55)
[2023-12-19] MEDS ORDERED: ePHEDrine sulfate 50 MG/ML AMP ONE (19:54)
[2023-12-19] MEDS ORDERED: FAMOTIDINE 20 MG/ 2 ML VIAL IV SCH ×2 (21:00→22:12)
[2023-12-19] MEDS ORDERED: HEParin SOD (PORCINE) 5,000 UNIT/0.5 ML SYR SUB-Q SCH ×2 (21:00→22:11)
[2023-12-19] MEDS ORDERED: SODIUM CHLORIDE 0.9% 80 ML IV ONE (21:01)
[2023-12-19] MEDS ORDERED: SUGAMMADEX SODIUM 200 MG/2 ML ML ONE (21:41)
--- NOTE | 2023-12-19 21:59 | EKG ---
[facility] [address] [facility] [place] [address] Signed Normal sinus rhythm Prolonged QT Abnormal ECG When compared with ECG of 28-MAR-2022 16:42, No significant change was found Confirmed by Kelby Ontiveros MD () on 12/19/2023 9:59:48 PM Electronically Signed By: KELBY ONTIVEROS MD 12/19/23 2159 PATIENT NAME: MEGHANNNANCYKinga MCMILLAN Electrocardiogram DATE OF : 40 PHYSICIAN: KELBY ONTIVEROS MD REPORT #: [id number] REPORT IS CONFIDENTIAL AND NOT TO BE RELEASED WITHOUT AUTHORIZATION
[2023-12-19] MEDS ORDERED: KETOROLAC TROMETHAMINE 15 MG/ML VIAL IV PRN (22:15)
[2023-12-19] MEDS ORDERED: PROCHLORPERAZINE EDISYLATE 10 MG/2 ML VIAL IV PRN (22:15)
--- NOTE | 2023-12-19 22:19 | NUR ---
PT ARRIVED TO ROOM 128 VIA BED WITH PACU STAFF. DR MCGARRY AT BEDSIDE. PER VERBAL CLARIFICATION, OK TO GIVE HEPARIN SQ TONIGHT. GIVE 85ML/HR MAINTENANCE FLUIDS, DO NOT GIVE 100ML/HR MAINTENANCE ORDER.
--- NOTE | 2023-12-19 22:25 | NUR ---
12/19/231 Emily Collins 4585-PATIENT ARRIVED TO CCU ROOM 128 VIA BED. PATIENT REACTIVE TO VERBAL STIMULI OPENING EYES. DENIES PAIN OR NAUSEA REMAINS VERY DROWSY. 6L MASK RR EVEN 100% DRESSING TO ABDOMEN CDI. PATIENT REMAINS VERY DROWSY DOZES BACK TO SLEEP.
[2023-12-19] MEDS ORDERED: fentaNYL citrate 50 MCG/ML SDV IV PRN (22:45)
[2023-12-19] MEDS ORDERED: droPERidol 5 MG/2 ML VIAL IV PRN (22:45)
[2023-12-19] MEDS ORDERED: NALOXONE HCL 0.4 MG SYR IV PRN (22:45)
[2023-12-19] MEDS ORDERED: IBLOOD GLUCOSE TEST STRIP 1 EA TEST VI PRN (22:45)
[2023-12-19 22:53] VITALS: BP 133/64
[2023-12-19 23:01] VITALS: BP 130/68
--- NOTE | 2023-12-19 23:04 | NUR ---
PT REQUESTED AND PROVIDED SMALL ROLLED TOWEL BEHIND NECK. PT DENIES ADDITIONAL REQUESTS. 2L NC PLACED, RT NOTIFIED, FOR O2 SATS 89-91%. POST NC PLACEMENT PT O2 SAT 95-97% VSS AND NAD NOTED VIA DIRECT OBS AND CONTINUOUS MONITOR.
[2023-12-20] VITALS (16 sets, daily range): BP systolic 119–169; BP diastolic 62–83
--- NOTE | 2023-12-20 00:11 | NUR ---
SHIFT ASSESSMENT COMPLETE SEE [facility] FOR DETAILS. PT RESTING IN BED. 2L NC IN PLACE. PATENT PIV WITH MAINTENANCE FLUIDS INFUSING. PATENT BAL WITH CLEAR YELLOW UO. SCDs IN PLACE. MIDLINE ABD DRSG IN PLACE S/P COLECTOMY. DRSG CDI. PT DENIES NEEDS AT THIS TIME. CALL LIGHT IN REACH. BED IN LOW, LOCKED POSITION WITH BED ALARM ON FOR PT SAFETY. VSS AND NAD NOTED VIA DIRECT OBS, CONTINUOUS MONITOR AND PT STATEMENT.
[2023-12-20] MEDS ORDERED: ACETAMINOPHEN 1,000 MG/100 ML VIAL IV PRN (02:00)
--- NOTE | 2023-12-20 02:02 | NUR ---
PT RESTING IN BED WITH EYES CLOSED. RR EVEN AND UNLABORED. BAL PATENT AND DRAINING. MIDLINE ABD DRSG CDI. PIV PATENT WITH MAINTENANCE FLUID INFUSING. 1L NC IN PLACE. BED IN LOW, LOCKED POSITION WITH BED ALARM ON FOR PT SAFETY. CALL LIGHT IN REACH. VSS AND NAD NOTED VIA DIRECT OBS AND CONTINUOUS MONITOR.
--- NOTE | 2023-12-20 03:00 | NUR ---
PT REQUESTED AND PROVIDED HER PERSONAL CELL PHONE. PT REPOSITIONED. ASSISTED WITH PILLOW REPOSITIONING AND BED ADJUSTMENT. PT REQUESTED AND PROVIDED HER GLASSES AND ICE WATER. PT DENIES ADDITIONAL NEEDS. BED IN LOW, LOCKED POSITION WITH BED ALARM ON FOR PT SAFETY. CALLLIGHT IN REACH. VSS AND NAD NOTED VIA DIRECT OBS AND CONTINUOUS MONITOR.
--- NOTE | 2023-12-20 03:13 | NUR ---
PT SITTING UP WATCHING ELECTION NEWS ON CELL PHONE. PT PLACED HEARING AIDS IN AND PUT ON HER GLASSES. PT A&O, PLEASANT AND COMMUNICATIVE.
--- NOTE | 2023-12-20 04:20 | NUR ---
SHIFT ASSESSMENT COMPLETE. [facility] FOR DETAILS. PT REQUESTED AND PROVIDED ASSIST WITH REPOSITIONING, WARM BLANKET, ICE WATER. PT DENIES ADDITIONAL NEEDS AT THIS TIME. CALL LIGHT IN REACH. PT FOLAY PATENT AND DRAINING. PT MIDLINE ABD INCISION DRSG CDI. PT PIV PATENT WITH MAINTENANCE FLUIDS INFUSING. PT USING PERSONAL CELL PHONE. BED IN LOW, LOCKED POSITION WITH BED ALARM ON FOR PT SAFETY. VSS AND NAD NOTED VIA DIRECT OBS, CONTNIUOUS MONITOR AND PT STATEMENT.
[2023-12-20 05:31] LABS: BASOPHILS 0.1 % (0-2); HEMATOCRIT 35.4 % (35.0-50.0); HEMOGLOBIN 11.3 g/dL (12.0-18.0); LYMPHOCYTES 1.8 % (24-44); MCH 32.7 (27-36); MCV 102.2 fl (81-99); MONOCYTES 4.6 % (0-12); NEUTROPHILS 93.5 % (39-80); PLATELET COUNT 252 K/uL (140-440); RBC 3.47 M/ul (4.3-5.7)
[2023-12-20 05:49] LABS: ALBUMIN 2.9 g/dL (3.4-5.0); ALBUMIN/GLOBULIN RATIO 0.91 (1.1-2.4); ANION GAP 14.9 (7-21); BILIRUBIN, TOTAL 0.5 ng/dL (0.2-1.0); BUN/CREATININE RATIO 16.3 (6.0-28.6); CALCIUM 8.6 mg/dL (8.5-10.1); CREATININE, SERUM 0.92 mg/dL (0.55-1.02); POTASSIUM 3.9 mmol/L (3.5-5.1); PROTEIN, TOTAL 6.1 g/dL (6.4-8.2)
[2023-12-20] MEDS ORDERED: CEFAZOLIN SODIUM 2 GM/20 ML SYR IV SCH (06:00)
--- NOTE | 2023-12-20 06:03 | NUR ---
PT RESTING IN BED WATCHING TELEVISION. PT REQUESTED AND PROVIDED ICE WATER. PT DENIES ADDITIONAL NEEDS. MIDLINE DRSG JERRY. MALLY AND PIV PATENT. PT A&O. BED IN LOW, LOCKED POSITION WITH BED ALARM ON. CALL LIGHT AND TV REMOTE ALONG WITH PERSONAL ITEMS IN REACH. NAD NOTED VIA DIRECT OBS, PT STATEMENT AND CONTINUOUS MONITOR.
--- NOTE | 2023-12-20 07:07 | NUR ---
REPORT GIVEN AND CARE ENDORSED TO ILIR MARTE. PT WATCHING TV. VSS AND NAD NOTED VIA CONTINUOUS MONITOR AND DIRECT OBS.
--- NOTE | 2023-12-20 07:20 | NUR ---
report from assistant casino shift manager, pt visible from rn station, banks to gravity with natalia urine present, iv fusing via pump wnl - abd drsg midline cdi, pt denies needs, call light in reach.
--- NOTE | 2023-12-20 09:46 | NUR ---
SPOKE TO PATIENT ABOUT THE DISCHARGE PLAN. PATIENT LIVES WITH HER AND PLANS TO GO HOME TO THE HOUSE SHE SHARES WITH . PATIENT USES A WALKER NEEDED.PATIENT CAN DO HER ADLS AND STILL DRIVES A CAR IN TOWN. PATIENT HAS A CHAIR LIFT TO GO UP THE STAIRS AT THE PATIENT'S HOUSE. PATIENT HAS FRIENDS AND FAMILY WHO CAN HELP NEEDED.PATIENT PLANS TO BE DISCHARGED HOME WHEN MEDICALLY STABLE.PATIENT'S DEMOGRAPHICS ARE CORRECT. PATIENT'S COOKS AND CLEANS THE HOUSE AND IS VERY HELPFUL.PATIENT DOES NOT HAVE DISCHARGE NEEDS AT THIS TIME.
--- NOTE | 2023-12-20 10:15 | NUR ---
pt passed doe, rn assisted pt to stand at bedside and trsf to bsc, smear of inc. bm noted - bed bath and linen changed. pt assisted to chair to sit up. call light in reach - pt then trsf to bsc again as she feels like she needs to pass gas and have another bm. pt forgetful, abd drsg cdi, banks to gravity 250 ml emptied.
--- NOTE | 2023-12-20 10:58 | NUR ---
pt up in chair on ipad - denies needs, feet elevated and call light in reach.
--- NOTE | 2023-12-20 13:00 | NUR ---
pt amb with rn to bathroom, med loose stool noted in bathroom. pt amb back to bed with assist. call light in reach - abd drsg cdi - positive flatus. taking po liquids well, watching urine output closely. enc. water intake.
--- NOTE | 2023-12-20 13:38 | NUR ---
UR CLINICAL REVIEW: [facility] INPT CRITERIA FOR BOWEL SURGERY [employer] INPT 12/19/23 @ 1718 ORDER MATCHES STATUS AUTH PENDING CLINICAL REVIEW, CLINICALS SENT VIA FAX PLANS TO DC TO HOME WITH SPOUSE. 12/23/23
[2023-12-20] MEDS ORDERED: GABAPENTIN100 MG PO (14:00)
[2023-12-20] MEDS ORDERED: AMOXICILLIN500 MG PO (14:01)
[2023-12-20] MEDS ORDERED: CARVEDILOL25 MG PO (14:01)
[2023-12-20] MEDS ORDERED: POTASSIUM CHLO10 ME1 PO (14:05)
[2023-12-20] MEDS ORDERED: TYLENOL PM EXS1 EACH PO (15:45)
[2023-12-20] MEDS ORDERED: COLACE100 MG PO (15:48)
[2023-12-20] MEDS ORDERED: FOLIC ACID0.4 MG PO (15:48)
[2023-12-20] MEDS ORDERED: ESTROVEN MAX400 MCG PO (15:48)
[2023-12-20] MEDS ORDERED: PROBIOTIC1 EAC1 PO (15:49)
[2023-12-20] MEDS ORDERED: PRESERVISION A1 EAC3 PO (15:49)
[2023-12-20] MEDS ORDERED: L-LYSINE500 M1 PO (15:49)
[2023-12-20] MEDS ORDERED: VITAMIN D325 MCG PO (15:50)
[2023-12-20] MEDS ORDERED: TYLENOL EXTRA500 MG PO (15:50)
[2023-12-20] MEDS ORDERED: VITAMIN B-125000 MC2 PO (15:50)
[2023-12-20] MEDS ORDERED: ZEASORB AF71 GM TOP (15:51)
--- NOTE | 2023-12-20 15:51 | NUR ---
MED REC COMPLETE
--- NOTE | 2023-12-20 16:39 | NUR ---
resting in bed watching tv nocomplaints. 300 ml water in, 150 ml urine out - denies needs. call light in reach.
--- NOTE | 2023-12-20 18:57 | NUR ---
dr manzanares here at bedside with this rn, rn reported vitals, u/o, bm and activity today - at bedside, pt denies needs.
[2023-12-20 19:06] LABS: BILIRUBIN, URINE NEGATIVE (negative); BLOOD/HGB, URINE NEGATIVE (Negative); KETONE, URINE NEGATIVE (Negative); LEUK ESTERASE, URINE SMALL (negative); NITRITE, URINE NEGATIVE (negative)
[2023-12-20 19:15] LABS: CRYSTALS, URINE NONE SEEN (0-1+); EPITHELIAL CELLS, URINE SQUAMOUS 1+ /lpf (0-1+)
[2023-12-20 19:16] LABS: BACTERIA, URINE RARE /hpf (negative); CASTS, URINE NONE SEEN \\lpf; COLLECTION TYPE, URINE CLEAN CATCH; REFLEX CULTURE, URINE Yes (No)
--- NOTE | 2023-12-20 19:30 | NUR ---
SHIFT REPORT RECEIVED.IVs WNL, IV FLUIDS INFUSING PER ORDER. PT STATES ABD PAIN /, DENIES NEED FOR INTERVENTION AT THIS TIME. PT IN ROOM. CALL LIGHT IN REACH, BED ALARM ON, RAILS UP.
--- NOTE | 2023-12-20 20:00 | NUR ---
ASSESSMENT COMPLETED. PT UP TO BR, SBA, BACK TO BED, TOLERATED WELL. BAL CARE COMPLETED. PT STATES PAIN IS "TOLERABLE" @ 3/10. LUNGS CLEAR IN UPPER LOBES, DIM IN LOWER LOBES. I.S. EDUCATION PROVIDED. IVs WNL, CDI, FLUSHED WELL. HEART RATE NSR IN 80s. ABD FIRM, MODERATELY DISTENDED, PAINFUL WITH PALPATION. DRESSING INTACT, 80% SATURATED WITH SS OUTPUT, REINFORCED WITH AN ABD PAD AND TAPE. CMS INTACT X 4 EXTREMITIES. SCABS AND BRUISING NOTED FROM CHART. UNABLE TO ASSESS INCISION IT IS COVERED WT SURGICAL DRESSING. PT STATES NO OTHER NEEDS AT THIS TIME. CALL LIGHT IN REACH. RAILS UP.
--- NOTE | 2023-12-20 21:00 | NUR ---
PT RESTING IN BED, PLAYING ON LAPTOP DEVICE. PT STATES NO NEEDS AT THIS TIME. CALL LIGHT IN REACH.
--- NOTE | 2023-12-20 22:00 | NUR ---
SCHEDULED MEDS PROVIDED. DAUGHTER IN ROOM. ICE WATER PROVIDED. PT STATES NO OTHER NEEDS AT THIS TIME. SCDs ON. CALL LIGHT IN REACH.
--- NOTE | 2023-12-20 23:00 | NUR ---
PT RESTING IN BED, TALKING WITH DAUGHTER. NO NEEDS AT THIS TIME. CALL LIGHT IN REACH, RAILS UP.
[2023-12-21] VITALS (7 sets, daily range): BP systolic 115–161; BP diastolic 58–89
--- NOTE | 2023-12-21 | NUR ---
VS COMPLETED BY SAFETY TRAINER. ASSESSMENT COMPLETED. ABD FIRM, TENDER TO PALPATION. BOWEL TONES ACTIVE. SURGICAL DRESSING INTACT. BAL WNL, EMPTIED. IVs WNL. IV FLUIDS INFUSING PER ORDER. PT STATES NO NEEDS. CALL LIGHT IN REACH, BED RAILS UP, BED ALARM ON.
--- NOTE | 2023-12-21 00:32 | NUR ---
WENT IN TO TAKE PT VITALS. PT HAS CALL LIGHT AND IS NOW LAYING DOWN TO SLEEP.
--- NOTE | 2023-12-21 02:00 | NUR ---
VS COMPLETED. PT RESTING IN BED, EYES CLOSED. RR EVEN, UNLABORED. CALL LIGHT IN REACH, RAILS UP, BED ALARM ON.
--- NOTE | 2023-12-21 03:00 | NUR ---
PT RESTING IN BED, EYES CLOSED. RR EVEN, UNLABORED. CALL LIGHT IN REACH.
--- NOTE | 2023-12-21 05:12 | NUR ---
WENT IN TO TAKE PT TO THE RESTROOM, ALSO GOT PT VITALS. PT IS NOW SITTING IN CHAIR. RN IS IN THE ROOM WITH PT NOW.
--- NOTE | 2023-12-21 05:27 | NUR ---
PT CALLS TO USE BR. SBA WITH FEDERAL APPELLATE CLERK AND BACK TO BED. PT TOLERATED WELL. ASSESSMENT, VS AND I&O COMPLETED. ABD SOFT, TENDER, BOWEL TONES ACTIVE. PAIN IN ABD 5/10, PRN PAIN MED PROVIDED. IVs WNL, IV FLUIDS INFUSING PER ORDER. ABD PAD PLACED OVER SURGICAL DRESSING IS NOW 25% SOAKED IN SS DRAINAGE, NEW ABD PAD PLACED OVER SURGICAL DRESSING. BAL WNL. PT STATES SHE HAS NOT SLEPT WELL TONIGHT BUT WANTS TO SIT UP IN CHAIR FOR AWHILE, PROVIDED. HEAT PACK PROVIDED. PT STATES NO OTHER NEEDS AT THIS TIME. CALL LIGHT IN REACH.
--- NOTE | 2023-12-21 05:48 | NUR ---
SCHEDULED MEDS PROVIDED. LAB IN ROOM TO DRAW BLOOD.
[2023-12-21 05:55] LABS: BASOPHILS 0.2 % (0-2); EOSINOPHILS 0.2 % (0-6); HEMATOCRIT 29.5 % (35.0-50.0); HEMOGLOBIN 9.5 g/dL (12.0-18.0); LYMPHOCYTES 6.4 % (24-44); MCHC 32.3 g/dl (30-36); MONOCYTES 8.5 % (0-12); NEUTROPHILS 84.7 % (39-80); PLATELET COUNT 222 K/uL (140-440); RBC 2.89 M/ul (4.3-5.7); RDW 13.5 (10.5-15.0)
[2023-12-21 06:09] LABS: BILIRUBIN, TOTAL 0.2 ng/dL (0.2-1.0); CREATININE, SERUM 1.07 mg/dL (0.55-1.02); PROTEIN, TOTAL 5.7 g/dL (6.4-8.2)
--- NOTE | 2023-12-21 06:09 | NUR ---
PT CALLED FROM RESTROOM READY TO BE CLEANED UP. PT IS NOW BACK IN BED AND PUT BACK ON THE MONITOR, PATIENT ALSO GOT A HEATPACK. PT HAS CALL LIGHT.
--- NOTE | 2023-12-21 06:17 | NUR ---
PT SITTING IN CHAIR, CALLS TO USE BR. PT IS GETTING OUT OF THE CHAIR THE BAL CATHETER SNAGS ON THE CHAIR, RN TELLS PT TO STOP BUT PT DOES NOT STOP WALKING IN TO THE BR. BAL COMES OUT OF THE PT URETHRA, PT CONTINUES TO TOILET AND SITS. PT IS UNAWARE THAT SHE HAS PULLED THE BAL OUT UNTIL AFTER SHE SITS AND SEES THE DEVICE STILL AT THE CHAIR. PT DENIES PAIN AT THE URETHRA, NO BLOODY DISCHARGE NOTED WHEN PT WIPED AFTER URINATION. RN WILL CALL DR MCGARRY ABOUT THE BAL REMOVAL. PT BACK TO BED AT THIS TIME PER HER CHOICE. HEAT PACK PROVIDED. PT STATES NO OTHER NEEDS AT THIS TIME. CALL LIGHT IN REACH, RAILS UP.
[2023-12-21 06:24] LABS: ALBUMIN 2.5 g/dL (3.4-5.0); ALBUMIN/GLOBULIN RATIO 0.78 (1.1-2.4); BUN/CREATININE RATIO 14.95 (6.0-28.6); CALCIUM 8.3 mg/dL (8.5-10.1)
--- NOTE | 2023-12-21 06:35 | NUR ---
CALLED MD BY PHONE TO NOTIFY HIM OF PT REMOVAL OF BAL. VERBAL ORDER GIVEN TO NOT REPLACE THE BAL. MD NOTIFIED OF MORNING POTASSIUM LAB RESULTS. VERBAL ORDER FOR 60MG POTASSIUM IV TO BE GIVEN 20MG AT A TIME. ORDER REPEATED BACK. NO FURTHER ORDERS AT THIS TIME.
--- NOTE | 2023-12-21 07:43 | NUR ---
REPORT RECEIVED FROM LUCIE HAZEL. PT IS RESTING IN BED WITH EYES CLOSED, RESP EVEN AND UNLABORED, HR 70'S SR, SPO2 95% AND RR 17.
--- NOTE | 2023-12-21 08:15 | NUR ---
CALL LIGHT ANSWERED, PATIENT UP RO BR WITH SBA FOR SAFETY, PATIENT NAUSEOUS BUT STEADY ON HER FEET. "SMEAR" OF LOOSE STOOL IN TOILET, NO URINE OUTPUT. PATIENT NOW SITTING UP IN CHAIR FOR BREAKFAST, FACE AND HANDS WASHED, HAIR COMBED, NEW BRIEF AND ABD PAD IN PLACE. CALL LIGHT IN EASY REACH.
--- NOTE | 2023-12-21 08:41 | NUR ---
PT GOT UP TO BR AND THEN UP TO SIT IN CHAIR TO EAT BREAKFAST. ASSESSMENT DONE, PT DENIES NEED FOR PAIN MEDICATION. CALL LIGHT IN REACH.
[2023-12-21] MEDS ORDERED: POTASSIUM CHLORIDE 10 MEQ/100 ML BAG IV SCH (09:00)
--- NOTE | 2023-12-21 09:12 | NUR ---
PATIENT UP IN BATHROOM PER YESTERDAYS ASSESSMENT THE PATIENT HAS NO DISCHARGE NEEDS AT THIS TIME. PATIENT PLANS TO GO HOME WITH HER AND HAS FAMILY AND FRIENDS THAT CAN HELP NEEDED.
--- NOTE | 2023-12-21 09:52 | NUR ---
PT DONE WITH EATING, THEN UP TO BATHROOM FOR LOOSE STOOL. PT REPORTS FEELING VERY TIRED AND WANTING TO TAKE A NAP, REPORTS THAT SHE HAS NOT HAD MUCH SLEEP LATELY. ASSISTED WITH POSITIONING IN BED, FRESH ABD PLACED OVER ABD INCISION. PT DENIES PAIN AND NAUSEA.
--- NOTE | 2023-12-21 11:26 | NUR ---
PT UP TO BR FOR LOOSE STOOL AND BACK TO BED. CALL LIGHT IN REACH. HR STEADY WHILE UP.
--- NOTE | 2023-12-21 12:55 | NUR ---
PT CALLS TO ASK FOR PAIN MEDICATION, PRN TORADOL GIVEN.
--- NOTE | 2023-12-21 13:20 | NUR ---
DR MCGARRY IN TO SEE PT
[2023-12-21] MEDS ORDERED: IBUPROFEN 600 MG TAB PO PRN (13:45)
[2023-12-21] MEDS ORDERED: HYDROmorphone HCL 2 MG TAB PO PRN (13:45)
[2023-12-21] MEDS ORDERED: ACETAMINOPHEN 500 MG TAB PO PRN (13:45)
--- NOTE | 2023-12-21 14:30 | NUR ---
PATIENT UP TO BR WITH SBA, STEADY ON HER FEET. SM BM(VERY LOOSE.) BACK TO BED, CALL LIGHT AND PERSONAL ITEMS IN EASY REACH. IN ROOM
--- NOTE | 2023-12-21 16:30 | NUR ---
IN TO DO ASSESSMENT, PT UP TO BATHROOM FOR BM AND VOID, THEN OUT TO AMBULATE IN [place] WITH SBA AND FWW. AMBULATED OUT OF CCU AND AROUND TO OTHER ENTRANCE. PT IS SHORT OF BREATH WITH EXERTION, RECOVERS AFTER A MINUTE OR SO ONCE BACK IN BED. BED BATH GIVEN, GOOD MODESTO CARE DONE. PT DENIES PAIN, DENIES NAUSEA, DOES NOT FEEL LIKE EATING ANYTHING RIGHT NOW. LUNGS CLEAR, ACTIVE BOWEL SOUNDS. DRESSING TO ABDOMEN IS SLIGHTLY LOOSE AT BOTTOM BUT HAS HAD MINIMAL LEAKAGE TODAY. PT HAS TOLERATED FULL LIQUID BREAKFAST AND LUNCH. DENIES NEEDS AT THIS TIME. CALL LIGHT IN LAP.
[2023-12-21] MEDS ORDERED: POTASSIUM CHLORIDE 100 ML IV ONE (16:47)
--- NOTE | 2023-12-21 18:36 | NUR ---
BACK IN TO VISIT PT.
--- NOTE | 2023-12-21 19:38 | NUR ---
PT CALLED TO USE RESTROOM, PT VOIDED. WALKED PT TO CHAIR, PT IS NOW EATING. PT SAID SHE WAS IN PAIN. I NOTIFED THE RN. RN IS IN ROOM NOW. PT HAS CALL LIGHT AND HER IS IN THE ROOM.
--- NOTE | 2023-12-21 19:41 | NUR ---
PATIENT SITTING UP IN RECLINER EATING A SANDWICH AND LOOKING OUT THE WINDOW. HER IS AT THE BEDSIDE. PATIENT REPORTS 5/10 PAIN IN HER RIGHT SIDE. PRN TYLENOL PROVIDED. PATIENT DENIED GI UPSET. WAS RECENTLY UP TO THE BATHROOM WITH FARM CONTRACTOR BUYER ASSIST. NO OTHER NEEDS AT THIS TIME. CALL LIGHT IN REACH.
--- NOTE | 2023-12-21 20:05 | NUR ---
PATIENT'S MIDLINE DRESSING IS SOAKED WITH THIN PINKISH DRAINAGE. ENTIRE LOWER DRESSING BORADER IS LOOSE. DISCUSSED WITH AND CHANGED DRESSING TO GAUZE DRESSING. PATIENT LAID IN BED FOR DRESSING CHANGE. WOUND EDGES ARE WELL APPROXIMATED. AREA RINSED WITH NS AND PAT DRY WITH GAUZE. GAUZE DRESSING WITH ADHESIVE BORDER APPLIED. GOWN CHANGED. PATIENT ASSISTED TO POSITION FOR COMFORT. AT BEDSIDE. VS STABLE. CALL LIGHT IN REACH.
[2023-12-21] MEDS ORDERED: FAMOTIDINE 20 MG TAB PO SCH (21:00)
--- NOTE | 2023-12-21 21:40 | NUR ---
patient provided scheduled meds. patient resting in bed, denied pain or gi upset. ice water in reach. patient reports being comfortable. call light in reach. lights dimmed.
--- NOTE | 2023-12-21 23:00 | NUR ---
PATIENT APPEARS RESTFUL IN BED. RR 16. CALL LIGHT IN REACH.
--- NOTE | 2023-12-22 00:30 | NUR ---
PATIENT RESTING WITH EYES CLOSED. RR 16. CALL LIGHT IN REACH.
--- NOTE | 2023-12-22 01:00 | NUR ---
PATIENT UP TO THE BATHROOM WITH SBA. PATIENT REPORTS SOME MILD PAIN, 3/10 WITH MOVEMENT. PRN MOTRIN PROVIDED. PATIENT VOIDED AND WAS ASSISTED BACK BED. DRESSING ON MIDLINE INCISION IS INTACT WITH MODERATE DRAINAGE NOTED. PATIENT DENIED GI UPSET. ASSISTED TO POSITION FOR COMFORT. CALL LIGHT IN REACH.
--- NOTE | 2023-12-22 02:30 | NUR ---
PATIENT APPEARS RESTFUL IN BED. RR 16. CALL LIGHT IN REACH.
--- NOTE | 2023-12-22 04:00 | NUR ---
PATIENT WAKES EASILY TO VOICE. DENIED PAIN OR GI UPSET. NO NEEDS AT THIS TIME. CALL LIGHT IN REACH.
[2023-12-22 05:18] LABS: BASOPHILS 0.4 % (0-2); HEMATOCRIT 27.2 % (35.0-50.0); LYMPHOCYTES 9.9 % (24-44); MCH 33.2 (27-36); MCV 100.7 fl (81-99); MONOCYTES 7.7 % (0-12); PLATELET COUNT 227 K/uL (140-440); RDW 14.1 (10.5-15.0)
[2023-12-22 05:23] VITALS: BP 162/83
--- NOTE | 2023-12-22 05:24 | NUR ---
PATIENT UP TO THE BATHROOM, 1PA. PATIENT TOLERATES WELL. REPORTS PAIN IN HER RIGHT SIDE, RATED 3/10. PRN TYLENOL PROVIDED. NO GI UPSET. BOWEL SOUNDS ACTVIE THROUGHOUT. MIDLINE DRESSING CDI, SMALL AMOUNT OF DRAINAGE NOTED. VS STABLE. PATIENT PROVIDED FRESH ICE WATER. ASSISTED TO POSITION FOR COMFORT. CALL LIGHT IN REACH.
[2023-12-22 05:28] LABS: ANION GAP 12.9 (7-21); BUN/CREATININE RATIO 14.58 (6.0-28.6); CALCIUM 8.3 mg/dL (8.5-10.1); CREATININE, SERUM 0.96 mg/dL (0.55-1.02); MAGNESIUM 1.8 mg/dL (1.8-2.4); POTASSIUM 3.9 mmol/L (3.5-5.1)
--- NOTE | 2023-12-22 08:36 | NUR ---
PT UP TO BR USING FWW, STEADY ON FEET, BACK TO SIT IN CHAIR.
[2023-12-22] MEDS ORDERED: FAMOTIDINE 20 MG TAB PO SCH ×2 (09:00→13:32)
--- NOTE | 2023-12-22 09:59 | NUR ---
PT UP TO BATHROOM, BACK TO BED, STATES SHE IS FEELING TIRED AND WANTS TO TAKE A NAP.
[2023-12-22 10:37] VITALS: BP 161/74
--- NOTE | 2023-12-22 12:22 | NUR ---
PT UP TO BR TO VOID AND THEN TO CHAIR TO EAT LUNCH. IN TO SEE PT. NO REQUESTS AT THIS TIME, CALL LIGHT IN REACH.
--- NOTE | 2023-12-22 13:20 | HP ---
[facility] [address] [facility] [place], [place] [address] Signed ADMISSION DATE: 12/19/2023 TIME: 5:20 p.m. ISSUE: Cecal volvulus x4 days. HISTORY OF PRESENT ILLNESS: This 83-year-old white woman has had five days of progressive pain and abdominal distention. She describes her pain as rather severe. She has had nausea and vomiting but no bowel movement for the past five days. She does have a history of diverticular disease, gastroparesis, appendectomy, cholecystectomy, and hysterectomy. She saw her primary provider, Dr. Peraza, in the past 48 hours and she was considered likely to be suffering from underlying gastroparesis as previously diagnosed by DR Vines, gastroenterolgist in the past. She could not stand the pain anymore and presented to the emergency room where she was thoroughly evaluated by Dr. Jones. This included clinical examination showing a distended, somewhat tender abdomen mostly on the left side. CT scan of the abdomen consistent with cecal volvulus. My review of the CT scan showed a very dilated right colon and portion of transverse most likely with fluid, but without sign of perforation or intraabdominal abscess. Her white count was noted to be 10.0, hematocrit 33.9, platelets 263,000. Electrolytes are normal. Potassium slightly low at 3.4, creatinine 1.07. CURRENT MEDICATIONS: Added at this time include famotidine, Myrbetriq, trospium chloride, hydroxychloroquine, duloxetine, Lasix, potassium, valsartan, and methotrexate. ALLERGIES: She has innumerable allergies quite notably including isosorbide, adhesive tape, diltiazem, hydrocodone, morphine, oxycodone, valdecoxib, valsartan, citalopram , doxycycline, esomeprazole, gabapentin, Zofran, pregabalin and tramadol. Underlying medical issues include "fibromyalgia," rheumatoid arthritis, macular degeneration, anemia, depression and presumed gastroparesis. SOCIAL HISTORY: Electronically Signed By: GARY MCGARRY MD 12/22/23 1320 PATIENT NAME: NANCY ZAVALETA HISTORY AND PHYSICAL DATE OF : 40 REPORT #: [id number] PHYSICIAN: GARY MCGARRY MD PCP: TIRSO PERAZA DO REPORT IS CONFIDENTIAL AND NOT TO BE RELEASED WITHOUT AUTHORIZATION [facility] [address], [place] [address] Signed She is . She is accompanied by her who is present at this time. REVIEW OF SYSTEMS: She denies any shortness of breath or chest pain. She has no vomiting. Does not feel nauseated currently. She does have abdominal pain and distention quite obviously. PHYSICAL EXAMINATION: GENERAL: Pleasant elderly woman, who appears to be in mild discomfort at this time. VITAL SIGNS: Pulse is 72, blood pressure 178/80, temperature 98.3, O2 saturation 97%. Trachea is midline. Mucous membranes are slightly dry. CHEST: Shows normal respiratory excursion. HEART: Pulses regular. ABDOMEN: Quite markedly distended, has low midline incision which is well healed. She has mild tenderness somewhat on the left side actually. EXTREMITIES: Show no clubbing, cyanosis, or edema. LABORATORY DATA: Lab studies are as per reported. CT scan was reviewed and findings confirmed from radiologist of cecal volvulus without evidence of ischemia. There is no clinical or radiographic evidence of perforation. ASSESSMENT: The patient has cecal volvulus. Although colonoscopic decompression is an option more dominantly for sigmoid volvulus, cecal volvulus is less likely to be benefitted from it and does carry higher risk of perforation. I would recommend laparotomy, decompression of the colon, possible right colectomy or depending on findings cecopexy. Certainly, if ischemic changes are noted, colectomy would be appropriate. Generally speaking, a primary anastomosis is well tolerated; quite unlikely would she need an ileostomy or other similar intervention. I discussed all this with the patient and her , they understand and agree to proceed. The patient is somewhat dehydrated at the moment, fluid resuscitation will be undertaken. We would anticipate monitoring in the intensive care unit postoperatively given her advanced age and so on. Gary Mcgarry MD Electronically Signed By: GARY MCGARRY MD 12/22/23 1320 PATIENT NAME: NANCY ZAVALETA HISTORY AND PHYSICAL DATE OF : 40 REPORT #: [id number] PHYSICIAN: GARY MCGARRY MD PCP: TIRSO PERAZA DO REPORT IS CONFIDENTIAL AND NOT TO BE RELEASED WITHOUT AUTHORIZATION [facility] [address], [place] [address] Signed /MODL /[id number] cc: MD Dr. Bassem Montenegro Copies: LIMA JONES MD ~ Electronically Signed By: GARY MCGARRY MD 12/22/23 1320 PATIENT NAME: NANCY ZAVALETA HISTORY AND PHYSICAL DATE OF : 40 REPORT #: [id number] PHYSICIAN: GARY MCGARRY MD PCP: TIRSO PERAZA DO REPORT IS CONFIDENTIAL AND NOT TO BE RELEASED WITHOUT AUTHORIZATION
--- NOTE | 2023-12-22 13:20 | OR ---
[facility] [address] [place], [place] [address] Signed DATE OF OPERATION: 12/19/2023 SURGEON: Gary Mcgarry MD PREOPERATIVE DIAGNOSIS: Large cecal volvulus approximately 5 days old. POSTOPERATIVE DIAGNOSIS: Large cecal volvulus approximately 5 days old. PROCEDURE: Exploration of abdomen with detorsion of colon and right hemicolectomy with a [id number] functional end-to-end ileotransverse colostomy. ANESTHESIA: General endotracheal, Prashanth Sinha, PRICING INTERN. INDICATION: This 83-year-old white woman who has had five days of increasing abdominal distention and obstipation and previously some nausea and vomiting. She had been seen by Dr. Peraza, her primary provider in the past 48 hours and it was thought to have an exacerbation of her longstanding diagnosis of gastroparesis. Her pain became intolerable and she presented to the emergency room where she was evaluated by Dr. Jones. Evaluation included a CT scan of the abdomen showed quite obviously a very large distended cecum and right colon consistent with cecal volvulus. There is no clinical or radiographic evidence of perforation. The patient has been fluid resuscitated, given intravenous antibiotics and now to undergo exploration, detorsion and probable right colectomy. The risk of bleeding, infection, anastomotic failure, if resection was to be performed and other unforeseen complications were reviewed with the patient and her they understand and wished to proceed. FINDINGS: Impressive distention of the colon was noted. There was no sign of infarction, but some ischemia of the right colon. Detorsion allowed for good visualization of the entire colon. There were areas of chronic scarring of the previous torsion episodes most likely. Resection included all of the right colon, a portion of the transverse and a short segment of ileum with a primary anastomosis in a [id number] functional end-to-end configuration of the ileum to the transverse colon. There were no other Electronically Signed By: GARY MCGARRY MD 12/22/23 1320 PATIENT NAME: NANCY ZAVALETA OPERATIVE REPORT DATE OF : 40 REPORT #: [id number] PHYSICIAN: GARY MCGARRY MD PCP: NATHAN PERAZA DO REPORT IS CONFIDENTIAL AND NOT TO BE RELEASED WITHOUT AUTHORIZATION [facility] [address] [place], [place] [address] Signed findings of note. She did have surgical absence of the gallbladder and the appendix and the uterus. DESCRIPTION OF PROCEDURE: The patient was brought to the operating room, given a general endotracheal anesthetic. Preoperative antibiotic Unasyn had been given. Sequential compression device stockings were used. A very distended abdomen was prepared with a Betadine based solution and draped sterilely. A previous infraumbilical midline incision was identified. An incision was made largely in that portion and later extended cephalad to the umbilicus. Upon entering to the abdomen, there was some ascites fluid, but no sign of carcinomatosis. Complete total decompression of the small-bowel was noted. The colon was impressively distended, mildly ischemic, but not infarcted by any means. The incision was extended cephalad to accommodate withdrawal of the torsed right colon. Once out of the abdomen, it could be detorsed and chronic adhesions of the right colonic mesentery and the transverse colonic mesentery were identified and incised. Ultimately, the colon was freed up entirely. The distal transverse colon was completely decompressed and completely viable. The right colectomy was deemed most advisable under the circumstances. The mesentery to the right colon and portion of the right transverse mesocolon were incised with electrocautery and sequentially secured with hemostats and ligated with 0 silk ties. Transillumination of the mid transverse colon, identifying the dominant middle colic artery and its branches was undertaken so as to preserve optimal flow to the remaining transverse colon. The ileum and the transverse colon were transected with a EMILY stapling device. Plans were made for a stapled [id number] functional end-to-end ileotransverse colostomy. This was accomplished with a 60 mm stapling device. I was quite and satisfied with the appearance. It appeared to be much smaller than I would prefer and on that basis, additional mesentery of both the ileum and the transverse colon were divided. The transverse colon portion excised with a stapling device and the ileum transected once again. The staple lines were oversewn with interrupted 3-0 silk suture. A [id number] functional end-to-end ileotransverse colostomy though was undertaken and hand-sewn technique with a two-layer technique of interrupted 3-0 silk suture in the seromuscular area and a 3-0 Vicryl in the mucosal layer. The mesenteric defect was secured with interrupted 3-0 silk sutures. This anastomosis was quite optimal, widely patent and without any true concern for dysfunction. Irrigation was undertaken in the abdominal cavity. Bowel was returned to the abdominal cavity in the natural position. The midline fascia was reapproximated with running bidirectional #1 PDS suture. Subcutaneous tissue was irrigated and skin closed with running subcuticular 3-0 Vicryl. Steri-Strips were applied as was Acticoat dressing. Electronically Signed By: GARY MCGARRY MD 12/22/23 1320 PATIENT NAME: NANCY ZAVALETA DEYANIRA OPERATIVE REPORT DATE OF : 40 REPORT #: [id number] PHYSICIAN: GARY MCGARRY MD PCP: NATHAN PERAZA DO REPORT IS CONFIDENTIAL AND NOT TO BE RELEASED WITHOUT AUTHORIZATION [address] [place] [address] Signed TAP blocks were then performed at conclusion of the procedure for postoperative analgesic benefit. It is anticipated that the patient will be extubated and transferred to the recovery room in good condition. Blood loss was certainly less than 50 mL in aggregate, possibly less. MD TOYIN Beltran/ARYA /[id number] cc: MD Nathan Montenegro DO Copies: LIMA JONES MD, ARIAN DO ~ Electronically Signed By: GARY MCGARRY MD 12/22/23 1320 PATIENT NAME: NANCY ZAVALETA OPERATIVE REPORT DATE OF : 40 REPORT #: [id number] PHYSICIAN: GARY MCGARRY MD PCP: NATHAN PERAZA DO REPORT IS CONFIDENTIAL AND NOT TO BE RELEASED WITHOUT AUTHORIZATION
[2023-12-22] MEDS ORDERED: carvediloL 25 MG TAB PO SCH (13:31)
[2023-12-22] MEDS ORDERED: DULOXETINE HCL 20 MG CAP PO SCH (13:32)
[2023-12-22] MEDS ORDERED: FUROSEMIDE 20 MG TAB PO SCH (13:32)
[2023-12-22] MEDS ORDERED: HYDROXYCHLOROQUINE SULFATE 200 MG TAB PO SCH (13:33)
[2023-12-22] MEDS ORDERED: Trospium Chloride 20 MG TABLET PO SCH (13:34)
[2023-12-22] MEDS ORDERED: VALSARTAN 160 MG TAB PO SCH (13:34)
[2023-12-22] MEDS ORDERED: LOSARTAN POTASSIUM 100 MG TAB PO SCH (14:00)
--- NOTE | 2023-12-22 14:00 | NUR ---
PT HAS BEEN RESTING TRYING TO TAKE A NAP
--- NOTE | 2023-12-22 15:00 | NUR ---
PTS DAUGHTER IN TO SEE HER, PT AWAKE AND TALKING WITH DAUGHTER AND TALKING ON PHONE, NO COMPLAINTS.
--- NOTE | 2023-12-22 16:30 | NUR ---
ASSISTED PT UP TO BATHROOM TO VOID AND BACK TO BED, CONT TO DENY PAIN OR FURHTER NEEDS. DAUGHTER STILL IN ROOM.
--- NOTE | 2023-12-22 18:30 | NUR ---
PTS IN TO SEE HER, SHE HAS FINISHED EATING DINNER, ATE ABOUT 50% OF HER MEAL.
[2023-12-22 19:03] VITALS: BP 152/70
--- NOTE | 2023-12-22 20:00 | NUR ---
PATIENT RESTING IN BED WATCHING TV. FRESH ICE WATER PROVIDED. PATIENT DENIED ANY FURTHER NEEDS AT THIS TIME. CALL LIGHT IN REACH.
--- NOTE | 2023-12-22 21:36 | NUR ---
PATIENT PROVIDED SCHEDULED MEDS AND TYLENOL FOR 3/10 PAIN IN ABD. VS STABLE. IV SITES WNL X2, SL. MIDLINE DRESSING IS CDI, NO NEW DRAINAGE NOTED. ABD IS SOFT AND BOWEL SOUNDS ACTIVE. NO GI UPSET. PATIENT PROVIDED A SNACK AND REPORTS IMPROVED APPETITE TODAY. ASSISTED PATIENT TO REPOSITION FOR COMFORT. CALL LIGHT IN REACH.
--- NOTE | 2023-12-22 23:34 | NUR ---
PATIENT UP TO THE BATHROOM. SBA WITH FWW. PATIENT TOLERATED WELL. PATIENT ATTEMPTED TO VOID BUT DID NOT. ORAL CARE DONE PATIENT RETURNED TO BED. CALL LIGHT IN REACH. LIGHTS DIMMED. NO OTHER NEEDS AT THIS TIME.
--- NOTE | 2023-12-23 02:00 | NUR ---
PATIENT UP TO THE BATHROOM TO VOID. PATIENT STATES THAT SHE IS WORRIED THAT SHE HAS NOT VOIDED BUT DOES NOT FEEL THE URGE AT THIS TIME. PATIENT SAT IN BATHROOM FOR SEVERAL MINS AND WAS UNABLE TO VOID. ENCOURAGED PATIENT TO REST AND PROVIDED FRESH ICE WATER TO ENCOURAGE ORAL INTAKE. PATIENT BACK TO BED. CALL LIGHT IN REACH.
--- NOTE | 2023-12-23 04:29 | NUR ---
PATIENT UP TO THE BATHROOM. PATIENT ABLE TO VOID; UNABLE TO COLLECT BUT APPEARED TO BE A MODERATE AMOUNT. PATIENT BACK TO BED. DENIED ANY CONCERNS. PAIN WELL MANAGED. DRESSING ON MIDLINE INTACT; NO NEW DRAINAGE NOTED. PATIENT ASSISTED TO POSITION FOR COMFORT. CALL LIGHT IN REACH.
[2023-12-23 07:05] VITALS: BP 173/73
--- NOTE | 2023-12-23 07:05 | NUR ---
patient up to the bathroom and voided. patient reports 3/10 pain in abd, prn tylenol provided. patient returned to bed. assisted to position for comfort. call light in reach.
--- NOTE | 2023-12-23 07:36 | NUR ---
REPORT RECEIVED FROM AL HAZEL, PT RESTING WITH EYES CLOSED IN BED, RESP EVEN AND UNLABORED.
--- NOTE | 2023-12-23 09:46 | NUR ---
PT AWAKE NOW, UP TO BATHROOM AND THEN UP TO CHAIR FOR BREAKFAST.
--- NOTE | 2023-12-23 10:24 | NUR ---
PT ATE ALL OF HER OATMEAL AND TOELRATED IT WELL, THEN UP TO BATHROOM WITH SBA AND FWW.
[2023-12-23] MEDS ORDERED: ACETAMINOPHEN500 MG PO (12:30)
[2023-12-23] MEDS ORDERED: IBUPROFEN600 MG PO (12:30)
[2023-12-23] MEDS ORDERED: LOSARTAN POTASSIUM 100 MG TAB PO SCH (14:00)
--- NOTE | 2023-12-25 16:59 | PATH ---
[facility] [address], [place] [address] Signed SPECIMEN(S): A RIGHT COLON SPECIMEN(S): B ADDITIONAL ILEUM AND COLON SPECIMEN SOURCE: A. RIGHT COLON B. 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 FINAL PATHOLOGIC DIAGNOSIS: A. Colon, right, segmental resection: - Tubular adenomas (seven fragments) - Colonic mucosa with no significant pathologic changes, clinically volvulus - Six reactive lymph nodes (0/6) B. Colon and ileum, segmental resections: - Colonic mucosa and small bowel mucosa with no significant pathologic changes BRP MICROSCOPIC EXAMINATION: Histologic sections of all submitted blocks are examined by light microscopy. These findings, together with the gross examination, support the pathologic diagnosis. GROSS DESCRIPTION: A. The specimen, labeled and designated "Jack D, " and designated on the requisition "right colon," is received in formalin and consists of portion of colon, terminal ileum with attached pericolonic adipose tissue. The colon is 33.7 cm in length and has an internal circumference that ranges from 5.0 cm at the distal resection margin up to 13.5 cm at the ileocecal valve. The terminal ileum is adherent onto the adjacent large bowel wall measuring 4.5 cm in length and has an average internal circumference of 3.5 cm. The appendix is not grossly identified. The serosal surface is pink and finely granular with adherent membranous tissue and focal areas of congestion. Upon opening the mucosal surface is pink-morgan and finely granular with multiple polypoid portions of mucosa that measure up to 0.9 cm in greatest dimension and are collectively 3.5 cm from the distal resection margin, and 5.2 cm from the proximal resection margin. The large bowel wall has an average thickness PATIENT NAME: NANCY ZAVALETA PATHOLOGY DATE OF : 40 REPORT #: [id number] PHYSICIAN: SCOTT PATHOLOGY PCP: TIRSO PERAZA DO REPORT IS CONFIDENTIAL AND NOT TO BE RELEASED WITHOUT AUTHORIZATION [facility] [address], [place] [address] Signed of 0.6 cm. The terminal ileum has an average wall thickness of 0.5 cm. Six possible lymph nodes are grossly identified. Direct Customer Service Representative sections are submitted in six cassettes. Cassette Summary: (A1) distal resection margin, shave (A2) proximal resection margin, shave (A3) large bowel with adherent terminal ileum at ileocecal valve (A4-A5) polypoid portions of mucosa (A6) six possible lymph nodes, submitted whole B. The specimen, labeled and designated "Jack, D, " and designated on the requisition "additional ileum and colon," is received in formalin and consists of one segment of large bowel that is 6.5 cm in length and has an average internal circumference of 4.0 cm. Attached via an anastomotic site is a 5.2 x 2.4 cm segment of small bowel. The serosal surfaces are pale pink and smooth with defects that are closed by black suture material. Upon opening the mucosal surface is pink and finely granular. No discrete mass lesions are grossly identified. The anastomotic site displays a pink granular mucosa. Direct Customer Service Representative sections are submitted in two cassettes. Cassette Summary: (B1) resection margins, shave (B2) bowel wall adjacent to anastomotic site FB (under the direct supervision of a pathologist) The Gross Description was prepared using a voice recognition system. The report was reviewed for accuracy; however, sound-alike word errors, addition and/or deletions may occur. If there is any question about this report, please contact Client Services. ADDITIONAL NOTES: Immunohistochemical and/or in situ hybridization studies if performed in this case included appropriate positive controls that reacted as expected. This test was developed and its performance characteristics determined by [facility]. It has not been cleared or approved by the U.S. Food and Drug Administration. The FDA has determined that such clearance or approval is not necessary. This test is used for clinical purposes. It should not be regarded as investigational or for research. [facility] is certified under the Clinical Laboratory Improvement Amendments of 1988 (CLIA) as qualified to perform high complexity clinical laboratory testing. PATIENT NAME: NANCY ZAVALETA PATHOLOGY DATE OF : 40 REPORT #: [id number] PHYSICIAN: SCOTT NOGUERA PCP: TIRSO PERAZA DO REPORT IS CONFIDENTIAL AND NOT TO BE RELEASED WITHOUT AUTHORIZATION [facility] [address], [place] [address] Signed PERFORMING LABORATORY: Technical component was performed by [facility], [address] [place] [id number] (CLIA# [id number]). Professional interpretation was performed by [facility] [address] [place] [id number] Diagnostician: Agustin Pacheco MD Pathologist Electronically Signed 12/25/2023 Copies: ~ PATIENT NAME: NANCY ZAVALETA PATHOLOGY DATE OF : 40 REPORT #: [id number] PHYSICIAN: SCOTT NOGUERA PCP: TIRSO PERAZA DO REPORT IS CONFIDENTIAL AND NOT TO BE RELEASED WITHOUT AUTHORIZATION
== END 2023-12-23 13:55 | disposition home or self-care (01) | DRG 331 ==
LOC: ED 13:30 → CCU 17:18
PROVIDERS: Emergency Medicine; ADMIT Surgery; ATTEND Surgery
PROC: 3E0T3BZ Introduction of Anesthetic Agent into Peripheral Nerves and Plexi, Percutaneous Approach (ICD-10-PCS; 2023-12-19)
PROC: 0DTF0ZZ Resection of Right Large Intestine, Open Approach (ICD-10-PCS; principal; 2023-12-19 19:00)
DX: K56.2 Volvulus (principal); K31.84 Gastroparesis; M06.9 Rheumatoid arthritis, unspecified; N32.81 Overactive bladder; Z88.8 Allergy status to other drugs, medicaments and biological substances; Z88.5 Allergy status to narcotic agent; Z88.1 Allergy status to other antibiotic agents
CPT/HCPCS: 00840; 36415; 74177; 76942; 80048; 80053; 81001; 83690; 83735; 85025; 87088; 88307; 93005; 93010; 96361; 96365; 96375; 99285; A9270; J0131; J0330; J0690; J0780; J1100; J1170; J1644; J1885; J2001; J2405; J2543; J2704; J3010; J3475; J3480; J3490; J7030; J7121; Q9967